=== PATIENT | female | born 1930 | race Caucasian/White ===

== ENCOUNTER 2019-12-04 18:06 | Emergency (ER) | payer MEDICARE ==
[~2019-12-04] VITALS: Ht 152.4 cm; Wt 60.9 kg
[2019-12-04] MEDS ORDERED: ENAL20TA11 (18:28)
[2019-12-04] MEDS ORDERED: CARV6.25 (18:28)
[2019-12-04] MEDS ORDERED: DILT180C70 (18:28)
[2019-12-04] MEDS ORDERED: XARE20TA (18:28)
[2019-12-04] MEDS ORDERED: JARD1TAB (18:28)
[2019-12-04] MEDS ORDERED: PRAV40TA2 (18:28)
[2019-12-04] MEDS ORDERED: FURO20TA2 (18:28)
[2019-12-04] MEDS ORDERED: IPRATROPIUM 0.5MG/ALBUTEROL 2.5MG INH SOL UD 3ML (DUONEB) NEB ONE (20:00)
[2019-12-04 20:10] LABS: BASO % 0.4 % (0.0-1.0); EOS # 0.2 10^3/uL (0.0-0.5); EOS % 1.5 % (0.0-3.0); HEMATOCRIT 28.8 % (36.0-47.0); LYMPH # 0.9 10^3/uL (1.5-5.0); LYMPH % 8.5 % (24.0-44.0); MEAN CORPUSCULAR HEMOGLOBIN 26.7 pg (27.0-33.0); MEAN CORPUSCULAR HGB CONC 27.8 g/dl (32.0-36.5); MONO # 0.7 10^3/uL (0.0-0.8); MONO % 6.8 % (0.0-5.0); NEUTROPHILS # 8.5 10^3/uL (1.5-8.5); NEUTROPHILS % 82.2 % (36.0-66.0); PLATELET COUNT, AUTOMATED 365 10^3/uL (150-450); WHITE BLOOD COUNT 10.3 10^3/uL (4.0-10.0)
[2019-12-04 20:11] LABS: VENOUS BASE EXCESS 8.4 (-2.0-2.0); VENOUS HCO3 37.2 MEQ/L (23.0-27.0); VENOUS O2 SATURATION 54.7 % (60.0-80.0); VENOUS PARTIAL PRESSURE CO2 85.5 mmHg (38.0-50.0); VENOUS PARTIAL PRESSURE O2 35.4 mmHg (30.0-50.0); VENOUS PH 7.257 UNITS (7.330-7.430); VENOUS STANDARD HCO3 31.5 MEQ/L; VENOUS TOTAL CO2 39.9 MEQ/L (24.0-28.0)
[2019-12-04 20:35] LABS: ALBUMIN 3.4 GM/DL (3.2-5.2); ALT/SGPT 19 U/L (12-78); BILIRUBIN,DIRECT 0.2 MG/DL (0.0-0.2); BILIRUBIN,TOTAL 0.5 MG/DL (0.2-1.0); BLOOD UREA NITROGEN 26 MG/DL (7-18); CARBON DIOXIDE LEVEL 35 MEQ/L (21-32); CHLORIDE LEVEL 103 MEQ/L (98-107); CK-MB VALUE MASS 1.8 NG/ML (<3.6); CPK CREATINE PHOSPHOKINASE 29 U/L (26-192); CREATININE FOR GFR 0.88 MG/DL (0.55-1.30); GLOMERULAR FILTRATION RATE > 60.0 (>32); GLUCOSE, FASTING 276 MG/DL (70-100); MB/CK RELATIVE INDEX 6.21 (< OR =4); NT-PRO BNP 1310 PG/ML (<450); POTASSIUM SERUM 3.5 MEQ/L (3.5-5.1); SODIUM LEVEL 143 MEQ/L (136-145); TOTAL PROTEIN 6.5 GM/DL (6.4-8.2); TROPONIN I < 0.02 NG/ML (< 0.10)
--- NOTE | 2019-12-04 20:56 | REPVR ---
PROCEDURE INFORMATION: Exam: XR Chest, 1 View Exam date and time: 12/04/2019 8:43 PM Age: 89 years old Clinical indication: Other: Dyspnea/cough TECHNIQUE: Imaging protocol: XR of the chest Views: 1 view. COMPARISON: No relevant prior studies available. FINDINGS: Lungs: Increased interstitial markings. No segmental or lobar infiltrates. Pleural space: Blunting of the right costophrenic angle likely chronic. Heart/Mediastinum: Cardiomegaly. Bones/joints: Unremarkable. Soft tissues: Multiple surgical clips demonstrated projecting over the left hemithorax and left axilla. IMPRESSION: No acute findings. Electronically signed by: Cosme Norman On 12/04/2019 20:55:39 PM
[2019-12-04 21:55] LABS: ABG BASE EXCESS 5.9 (-2.0-2.0); ABG HCO3 31.6 MEQ/L (22.0-26.0); ABG O2 SATURATION 93.7 % (95.0-99.0); ABG PARTIAL PRESSURE CO2 53.1 mmHg (35.0-45.0); ABG PARTIAL PRESSURE O2 79.8 mmHg (75.0-100.0); ABG STANDARD HCO3 29.7 MEQ/L (22.0-26.0); ABG TOTAL CO2 33.2 MEQ/L (23.0-31.0); ABG pH (ARTERIAL) 7.392 UNITS (7.350-7.450)
--- NOTE | 2019-12-04 22:59 | REPVR ---
PROCEDURE INFORMATION: Exam: US Duplex Lower Extremity Veins, Bilateral Exam date and time: 12/04/2019 10:47 PM Age: 89 years old Clinical indication: Edema, localized; Lower extremity, bilateral; Additional info: Swelling TECHNIQUE: Imaging protocol: Real-time duplex ultrasound of the extremities with 2-D cerna scale, color Doppler flow and spectral waveform analysis with image documentation. Complete exam focused on the bilateral lower extremity veins. COMPARISON: No relevant prior studies available. FINDINGS: Right deep veins: Unremarkable. The common femoral, femoral, proximal profunda femoral and popliteal veins are patent without thrombus. Normal Doppler waveforms. Normal compressibility and/or augmentation response. Right superficial veins: Saphenofemoral junction is patent without thrombus. Left deep veins: Unremarkable. The common femoral, femoral, proximal profunda femoral and popliteal veins are patent without thrombus. Normal Doppler waveforms. Normal compressibility and/or augmentation response. Left superficial veins: Saphenofemoral junction is patent without thrombus. Soft tissues: Severe edema demonstrated bilaterally in the lower legs. IMPRESSION: Severe edema demonstrated bilaterally in the lower legs. No DVT. Electronically signed by: Cosme Norman On 12/04/2019 22:58:47 PM
--- NOTE | 2019-12-04 23:00 | REPVR ---
PROCEDURE INFORMATION: Exam: US Duplex Left Upper Extremity Veins, Limited Exam date and time: 12/04/2019 10:47 PM Age: 89 years old Clinical indication: Swelling (edema) of limb; Upper extremity, left TECHNIQUE: Imaging protocol: Real-time Duplex ultrasound of the Left Upper Extremity with 2-D cerna scale, color Doppler flow and spectral waveform analysis with image documentation. Limited exam focused on the left upper extremity veins. COMPARISON: No relevant prior studies available. FINDINGS: Left deep veins: Unremarkable. Axillary and brachial veins are patent throughout without thrombus. Normal Doppler waveforms. Normal compressibility and/or augmentation response. Visualized internal jugular and subclavian veins are patent. Left superficial veins: Unremarkable. Visualized basilic vein is patent without thrombus. Cephalic vein not visualized. Soft tissues: Severe arm edema. IMPRESSION: Severe arm edema. No DVT. Electronically signed by: Cosme Norman On 12/04/2019 23:00:33 PM
[2019-12-04 23:30] VITALS: BP 125/58
--- NOTE | 2019-12-05 13:19 | ECGEPIP ---
[facility] - ED Test Date: 2019-12-04 Pat Name: OSKAR BABCOCK Department: Room: - Gender: Female Densitometrist: NATHEN : [id number] Requested By: CHICA Okeefe Order Number: [id number] Reading MD: Lanie Lucas Measurements Intervals Staples Rate: 99 P: IN: 0 QRS: 85 QRSD: 89 T: 221 QT: 302 QTc: 388 Interpretive Statements ATRIAL FIBRILLATION WITH ABERRANT CONDUCTION OR VENTRICULAR PREMATURE COMPLEXES SEPTAL MYOCARDIAL INFARCTION, PROBABLY OLD low voltage limb baseline artifact may affect interpretation No prior Electronically Signed on 12-05-2019 13:19:30 EDT by Lanie Lucas
== END 2019-12-04 23:35 | disposition home or self-care (01) ==
LOC: M ED 18:06
DX: I11.0 Hypertensive heart disease with heart failure (principal); R94.31 Abnormal electrocardiogram [ECG] [EKG]; R60.1 Generalized edema; I48.91 Unspecified atrial fibrillation; J44.9 Chronic obstructive pulmonary disease, unspecified; E78.5 Hyperlipidemia, unspecified; Z85.3 Personal history of malignant neoplasm of breast; Z90.12 Acquired absence of left breast and nipple; Z90.49 Acquired absence of other specified parts of digestive tract; Z79.899 Other long term (current) drug therapy

== ENCOUNTER 2019-12-09 21:11 | Inpatient (IN) | payer MEDICARE, MEDICAID ==
[~2019-12-09] VITALS: Ht 152.4 cm; Wt 57.8 kg
[~2019-12-09 21:11] MED LIST: CARV6.25; DILT180C70; ENAL20TA11; FURO20TA2; JARD1TAB; PRAV40TA2; XARE20TA
[2019-12-09] MEDS ORDERED: ACETAMINOPHEN TAB 650MG DOSE (2X325MG) PO PRN (23:45)
[2019-12-09] MEDS ORDERED: MAALOX 30 ML SUSP *UDC PO PRN (23:45)
[2019-12-09] MEDS ORDERED: MOM 30ML SUSPENSION UDC PO PRN (23:45)
[2019-12-09 23:46] VITALS: BP 146/80
[2019-12-10] MEDS ORDERED: AMLO1TAB25 PO (00:35)
[2019-12-10] MEDS ORDERED: PRAV40TA2 PO (00:35)
[2019-12-10] MEDS ORDERED: JARD1TAB PO (00:35)
[2019-12-10] MEDS ORDERED: FURO20TA2 PO (00:35)
[2019-12-10] MEDS ORDERED: DILT180C43 PO (00:35)
[2019-12-10] MEDS ORDERED: FERR1TAB8 PO (00:35)
[2019-12-10] MEDS ORDERED: XARE20TA PO (00:35)
[2019-12-10] MEDS ORDERED: ATEN100T PO (00:35)
[2019-12-10] MEDS ORDERED: ENAL20TA11 PO (00:35)
[2019-12-10] MEDS: PANTOPRAZOLE 40MG VIAL (C9113 PER 1) IV SCH ×3 (01:14→21:13)
[2019-12-10 01:29] LABS: HEMATOCRIT 34.4 % (36.0-47.0); HEMOGLOBIN 10.1 g/dl (12.0-15.5); MEAN CORPUSCULAR HEMOGLOBIN 26.3 pg (27.0-33.0); MEAN CORPUSCULAR HGB CONC 29.4 g/dl (32.0-36.5); MEAN CORPUSCULAR VOLUME 89.6 fl (80.0-96.0); PLATELET COUNT, AUTOMATED 318 10^3/uL (150-450); RED BLOOD COUNT 3.84 10^6/uL (4.00-5.40); WHITE BLOOD COUNT 12.7 10^3/uL (4.0-10.0)
[2019-12-10] MEDS: FUROSEMIDE 40MG/4ML VIAL (J1940) IV SCH ×4 (01:32→17:00)
[2019-12-10 01:40] LABS: INR 1.07; PROTHROMBIN TIME 14.1 SECONDS (12.5-14.3)
[2019-12-10 01:43] LABS: D-DIMER QUANT 545.04 ng/ml (<500)
[2019-12-10 02:10] LABS: ALBUMIN 3.4 GM/DL (3.2-5.2); BILIRUBIN,TOTAL 2.8 MG/DL (0.2-1.0); CALCIUM LEVEL 8.4 MG/DL (8.8-10.2); CREATININE FOR GFR 0.97 MG/DL (0.55-1.30); GLOMERULAR FILTRATION RATE 57.7 (>32); MAGNESIUM LEVEL 2.3 MG/DL (1.8-2.4); POTASSIUM SERUM 3.8 MEQ/L (3.5-5.1); THYROID STIMULATING HORMONE 6.13 uIU/ML (0.358-3.740); TOTAL PROTEIN 6.1 GM/DL (6.4-8.2); TROPONIN I 0.02 NG/ML (< 0.10)
--- NOTE | 2019-12-10 02:12 | REPVR ---
PROCEDURE INFORMATION: Exam: US Duplex Left Upper Extremity Veins, Limited Exam date and time: 12/10/2019 2:07 AM Age: 89 years old Clinical indication: Edema, localized; Upper extremity, left; Additional info: Left upper extremity swelling R/O dvt TECHNIQUE: Imaging protocol: Real-time Duplex ultrasound of the Left Upper Extremity with 2-D cerna scale, color Doppler flow and spectral waveform analysis with image documentation. Limited exam focused on the left upper extremity veins. COMPARISON: US DUPLEX EXT UPPER VEINS UNILATE LEFT 12/04/2019 10:25 PM FINDINGS: Left deep veins: Unremarkable. Axillary and brachial veins are patent throughout without thrombus. Normal Doppler waveforms. Normal compressibility and/or augmentation response. Visualized internal jugular and subclavian veins are patent. Left superficial veins: Unremarkable. Visualized cephalic and basilic veins are patent without thrombus. Soft tissues: Diffuse subcutaneous edema. IMPRESSION: 1. No evidence of deep vein thrombosis. 2. Diffuse subcutaneous edema. Electronically signed by: Darwin David On 12/10/2019 02:12:29 AM
[2019-12-10] MEDS ORDERED: DEXTROSE 50% 50 ML SYRINGE IV PRN (03:00)
[2019-12-10] MEDS ORDERED: GLUCAGON INJ 1MG VIAL SC PRN (03:00)
[2019-12-10] MEDS ORDERED: GLUCOSE 4GM CHEW TABLET PO PRN (03:00)
--- NOTE | 2019-12-10 03:02 | REPVR ---
PROCEDURE INFORMATION: Exam: XR Chest, 1 View Exam date and time: 12/10/2019 2:32 AM Age: 89 years old Clinical indication: Shortness of breath TECHNIQUE: Imaging protocol: XR of the chest Views: 1 view. COMPARISON: CR PORTABLE CHEST X-RAY 12/04/2019 8:36 PM FINDINGS: Lungs: No acute infiltrate. Pleural space: Unremarkable. No pleural effusion. No pneumothorax. Heart/Mediastinum: Unremarkable. No cardiomegaly. Vasculature: Moderate atherosclerotic calcification of the aortic arch. Bones/joints: Unremarkable. Soft tissues: Status post surgery of the left hemithorax. IMPRESSION: No acute infiltrate. Electronically signed by: Darwin David On 12/10/2019 03:01:20 AM
--- NOTE | 2019-12-10 03:06 | HPEPDOC ---
[facility] Medical History & Physical Date of Admission Dec 10, 2019 Date of Service: Dec 10, 2019 Attending Physician: MARIAMA BRUSH MD History and Physical CHIEF COMPLAINT: SOB, dyspnea, transfer from [facility] HISTORY OF PRESENT ILLNESS: Francesca Ramirez is an 89 YO F with history of dCHF, colon cancer s/p resection who presents with shortness of breath, dyspnea on exertion worsening over the past week. She denies any recent illness, no fevers/chills/nausea/vomiting/diarrhea and no cough. She does report having some congestion and intermittent runny nose. She has also noticed her legs getting m ore swollen. She attributes this to her increased thirst and noncompliance with fluid and salt restriction. In addition, her left arm has become increasingly more swollen compared to the right. She does have a history of left breast mastectomy and lymph node resection. Otherwise, she states that she has been taking all of her medication as prescribed. At [facility], where she first presented, she was found to have Hgb 7.6. She does endorse black tarry stools recently but no hemetemesis or hemoptysis. She was given 2U pRBCs. At this point in time, she reports her shortness of breath is the same and has not improved. PAST MEDICAL HISTORY: 1. History of diastolic congestive heart failure (last Echo unknown) 2. HLD 3. HTN 4. History of colon cancer s/p resection 5. History of left breast cancer 6. GERD 7. DM2 8. Osteoarthritis 9. COPD? 10. Atrial Fibrillation on Xarelto PAST SURGICAL HISTORY: 1. Colon resection 2. Cholecystectomy 3. Mastectomy (left) 4. Skin cancer removal SOCIAL HISTORY: Former smoker, quit >10 years ago Drinks one glass of wine each night FAMILY HISTORY: noncontributory ALLERGIES: Please see below. REVIEW OF SYSTEMS: CONSTITUTIONAL: No fevers/chills/night sweats, no weight loss HEENT: No change in vision or hearing loss noted CARDIOVASCULAR: no chest pain, no palpitations RESPIRATORY: reports shortness of breath, dyspnea on exertion, no coughing GASTROINTESTINAL: denies abdominal pain, no nausea/vomiting, denies diarrhea, reports black tarry stools GENITOURINARY: no dysuria symptoms SKIN: no rashes or new ulcers MUSCULOSKELETAL: no muscle pain or tenderness NEUROLOGICAL: no loss of sensation or weakness or loss of strength PSYCHIATRIC: no mood changes, no depression ENDOCRINE: no hot/cold intolerance, does report increased thirst HEMATOLOGIC/LYMPHATIC: no easy bruising, no lumps/bumps noted HOME MEDICATIONS: Please see below. VITAL SIGNS: see below GENERAL: alert and oriented, in no apparent distress, sitting up in bed, pleasant and conversant in full sentences. HEENT: PERRL, EOMI, Oral mucous membranes are moist without lesions. Norm ocephalic, atraumatic NECK: No adenopathy is appreciated. No thyromegaly CHEST/LUNGS: Diffuse wheezing bilaterally with some crackles noted at the bases, symmetric chest rise, HEENT. Sentences HEART: Irregularly irregular rhythm. 2/6 systolic ejection murmur at the right upper sternal border. Distal pulses are 2+. No carotid bruits appreciated. ABDOMEN: Soft, nontender, and nondistended. Bowel sounds are positive. No organomegaly is appreciated. No masses are appreciated. There are no peritoneal signs. There is no [place] sign. EXTREMITIES: There is 3+ pitting edema up to the hips bilaterally. Left upper extremity is edematous compared to right upper extremity, 2+ pitting edema up to left shoulder SKIN: There is evidence of chronic edema in her lower extremities PSYCHIATRIC: AAO x 3, normal mood/affect NEUROLOGIC: The patient has 5/5 strength to the upper and lower extremities bilaterally. Sensation is intact throughout. Deep tendon reflexes are 2+ in all four extremities. There are no deficits to the cranial nerves. LABORATORY DATA: See below. IMAGING: DOPPLER US LUE: FINDINGS: Left deep veins: Unremarkable. Axillary and brachial veins are patent throughout without thrombus. Normal Doppler waveforms. Normal compressibility and/or augmentation response. Visualized internal jugular and subclavian veins are patent. Left superficial veins: Unremarkable. Visualized cephalic and basilic veins are patent without thrombus. Soft tissues: Diffuse subcutaneous edema. IMPRESSION: 1. No evidence of deep vein thrombosis. 2. Diffuse subcutaneous edema. CXR FINDINGS: Lungs: No acute infiltrate. Pleural space: Unremarkable. No pleural effusion. No pneumothorax. Heart/Mediastinum: Unremarkable. No cardiomegaly. Vasculature: Moderate atherosclerotic calcification of the aortic arch. Bones/joints: Unremarkable. Soft tissues: Status post surgery of the left hemithorax. IMPRESSION: No acute infiltrate. MICROBIOLOGY: Please see below. ASSESSMENT: This is an 89 YO F with history of dCHF, AF, colon cancer s/p resection who presents with worsening shortness of breath, dyspnea over the past 2 weeks found to be anemic with leukocytosis and hyperglycemia concerning for acute GI bleed vs CHF exacerbation. . PLAN: 1. Shortness of breath: ddx includes symptomatic anemia vs more likely CHF exacerbation vs acute respiratory infection -RVP at [facility] negative for infection -CXR ordered not concerning for any infiltrate or fluid overload -BNP pending -Mild leukocytosis at 12.7. No fever, cough, sputum production. Likely from steroids given at [facility] -Will give 40mg IV Lasix Q4h -Fluid restriction 1.5L/day -Troponins negative at [facility], will trend q6H 2. Acute anemia, concern for UGI bleed: -Patient does report having black tarry stools recently, but she is on iron at home -Fecal occult ordered and pending -Will trend H/H Q6H -IV Protonix 40mg Q12H -Clear liquid diet for now -Consider GI consult in AM. Patient is hemodynamically stable at this point in time 3. LUE swelling: no concern for infection -Doppler U/S negative for DVT -Patient does have history of left breast and lymph node resection, could be component of lymphedema -Elevate arm, no IVs 4. HTN: -Continue Diltiazem, Atenolol, Norvasc 5. HLD: -Continue Pravastatin 6. Atrial fibrillation on Xarelto: -Will hold Xarelto for time being for concern for GI bleed 7. 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, will hold for time being DVT ppx: TEDs/SCDs Laboratory Data Labs 24H Laboratory Tests 2 12/10/19 01:16: Nucleated Red Blood Cells % (auto) 0.0 CBC/BMP Laboratory Tests 12/10/19 01:16 Home Medications Scheduled Amlodipine Besylate (Amlodipine Besylate) 10 Mg Tablet, 10 MG PO DAILY Atenolol (Atenolol) 100 Mg Tablet, 100 MG PO DAILY Diltiazem HCl (Diltiazem 24Hr ER) 180 Mg Cap.er.24h, 180 MG PO DAILY Empagliflozin (Jardiance) 10 Mg Tablet, 10 MG PO DAILY Enalapril Maleate (Enalapril Maleate) 20 Mg Tablet, 20 MG PO DAILY Ferrous Sulfate (Ferrous Sulfate) 325 Mg Tablet, 325 MG PO DAILY Furosemide (Furosemide) 20 Mg Tablet, 20 MG PO BID Pravastatin Sodium (Pravastatin Sodium) 40 Mg Tablet, 40 MG PO 4XWK FRIDAY, FRIDAY, FRIDAY AND FRIDAY AT BEDTIME Rivaroxaban (Xarelto) 20 Mg Tablet, 20 MG PO QPM BEFORE DINNER Allergies Coded Allergies: No Known Drug Allergies (Verified Allergy, Unknown, 12/04/19) A-FIB/CHADSVASC A-FIB History Current/History of A-Fib/PAF?: Yes Current PO Anticoag Therapy: Yes GME ATTESTATION GME ATTESTATION My faculty preceptor for this patient encounter was physically present during the encounter and was fully available. All aspects of the patient interview, examination, medical decision making process, and medical care plan development were reviewed and approved by the faculty preceptor. The faculty preceptor is aware and concurs with the plan as stated in the body of this note and will attest to such by his/her cosignature. ATTENDING NOTE TIME OF SERVICE 1235AM I reviewed the note and agree with the findings as documented. Ms. Ramirez is an 89 yr old w a hx of multiple malignancies DM, and HTN who was transferred for evaluation of melena with acute anemia; she also has fluid overload. She received PRBCs at [facility]. Plan: f/u repeat Hg and stool occult if positive consult / f/u Echo rest per 's H&P SHANTA GONZALEZ MD Dec 10, 2019 01:47 MARIAMA BRUSH MD Dec 10, 2019 06:25
[2019-12-10 03:35] LABS: HEMOGLOBIN A1c 7.1 %
[2019-12-10 06:00] VITALS: BP 164/92
[2019-12-10 07:00] VITALS: BP_SYST 136; BP_SYST 138; BP_SYST 141; BP_DIAS 67; BP_DIAS 68; BP_DIAS 80
[2019-12-10 08:02] LABS: HEMATOCRIT 37.2 % (36.0-47.0); HEMOGLOBIN 10.8 g/dl (12.0-15.5); MEAN CORPUSCULAR VOLUME 89.4 fl (80.0-96.0); PLATELET COUNT, AUTOMATED 308 10^3/uL (150-450); RED BLOOD COUNT 4.16 10^6/uL (4.00-5.40); WHITE BLOOD COUNT 12.4 10^3/uL (4.0-10.0)
[2019-12-10 08:28] LABS: CREATININE FOR GFR 0.99 MG/DL (0.55-1.30); GLOMERULAR FILTRATION RATE 56.4 (>32); PERCENT SATURATION 41.3 % (13.2-45.0); POTASSIUM SERUM 3.3 MEQ/L (3.5-5.1)
[2019-12-10] MEDS: HumaLOG INSULIN (NovoLOG) PER UNIT SC SCH ×4 (09:32→20:53)
[2019-12-10] MEDS: atenoloL 50 MG TAB PO SCH (09:35)
[2019-12-10] MEDS: amLODIPine 10 MG TAB PO SCH (09:36)
[2019-12-10] MEDS: ENALAPRIL MALEATE 10 MG TAB PO SCH (09:36)
[2019-12-10] MEDS: diltiaZEM **CD** 180 MG CAP PO SCH (09:36)
[2019-12-10 10:09] LABS: HEMOGLOBIN A1c 7.1 %
--- NOTE | 2019-12-10 11:36 | IPNPDOC ---
Text Note Date of Service The patient was seen on 12/10/19. NOTE HPI: Ms. Ma is an 89yo F with PMH of CHF and colon cancer who was transferred from [facility] to the ED complaining of SOB, dyspnea, and possible GI bleed. SUBJECTIVE: No acute events overnight. However, she did state she continues to feel short of breath when resting and that it gets worse when she exerts herself. She denied any chest pain or pressure, but mentioned that at times her heart feels like "it is fluttering in her chest" and said that it felt that way right now. She admitted to tingles in both of her legs that is constant and occasional tingles in her left arm that go down to her fingers. She stated that she did not eat anything yesterday or this morning and denied any nausea or vomiting. OBJECTIVE: VITAL SIGNS: please see below GENERAL: Pt appeared lying on bed and in no acute distress. HEENT: NC, AT, no scleral icterus, no pharyngeal erythema. NECK: no JVD or lymphadenopathy appreciated. CV: 2/6 systolic ejection murmur at right sternal border with an irregularly irregular rhythm. RESPIRATORY: expiratory wheezes heard in left middle and lower lobes, no rales, rhonchi, or wheezes elsewhere. ABDOMEN: soft, nontender, nondistended, bowel sounds active in all 4 quadrants. EXTREMITIES: +2 pitting edema in calves BL, Left upper extremity is edematous compared to the right, NEURO: 5/5 strength and sensation intact in all 4 extremities. PSYCH: AAOx3, normal mood and affect. LABORATORY DATA: please see below IMAGING: Vascular US: Impression 1. No evidence of deep vein thrombosis. 2. Diffuse subcutaneous edema. CXR: Impression 1. No acute infiltrate MICROBIOLOGY: please see below ASSESSMENT/PLAN: #SOB 2/2 CHF -RVP at [facility] negative for infection -CXR ordered with no concern for fluid overload or infiltrate -BNP 1670 this morning (12/10/2019) -Continue Lasix 40mg IV Q4h -Continue fluid restriction 1.5L/day -Troponins negative at [facility] and negative x2 since admission #Acute anemia -After 2 units of PRBCs, Hgb has improved to 10.8 -Nurse does not report any tarry stools -Fecal occult still pending -IV Protonix 40mg Q12h -Continue to trend H/H every 6h -Continue clear liquid diet -GI was consulted, input appreciated. #LUE swelling -Doppler U/S negative for DVT -Pt does have history of left breast and lymph node resection -Elevate arms, no IVs #HTN -Continue Diltiazem, Atenolol, and Norvasc #HLD -Continue Pravastatin #A-fib -Continue to hold Xarelto until GI bleed r/o #DM2 -On Jiardiance at home -SSI with hypoglycemic protocol #NAT -On Ferrous sulfate at home, continue to hold DVT prophylaxis: TEDS and sequentials VS,Fishbone, I+O VS, Fishbone, I+O Laboratory Tests 12/10/19 01:16 12/10/19 07:15 Vital Signs Date Time Temp Pulse Resp B/P (MAP) Pulse Ox O2 Delivery O2 Flow Rate FiO2 12/10/19 09:36 137/81 12/10/19 09:36 101 12/10/19 06:00 97.9 18 100 Nasal Cannula 3.0 I&O- Last 24 Hours up to 6 AM 12/10/19 06:00 Intake Total 200 ml Output Total 1575 ml Balance -1375 ml GME ATTESTATION GME ATTESTATION My faculty preceptor for this patient encounter was physically present during the encounter and was fully available. All aspects of the patient interview, examination, medical decision making process, and medical care plan development were reviewed and approved by the faculty preceptor. The faculty preceptor is aware and concurs with the plan as stated in the body of this note and will attest to such by his/her cosignature. ATTENDING NOTE I, Billy Dao, have independently examined this patient and performed my own physical exam, as well as reviewed the documentation and edited where necessary. I have discussed in detail with the resident / student the findings and plan of treatment as documented by the resident / student and edited their note. I agree with their findings and treatment plan and have edited their documentation. I will continue to follow the patient during this hospital stay. Case discussed with gastroenterology - At this point patient will continue with diuresis for fluid overload - Plan will be to continue trend hemoglobin and transfuse as needed PERICO VERDUGO OMS-3 Dec 10, 2019 11:36 BILLY DAO MD Dec 10, 2019 18:48
[2019-12-10 14:00] VITALS: BP 99/51
[2019-12-10] MEDS: PRAVASTATIN 20 MG TAB PO SCH (18:12)
[2019-12-10 22:00] VITALS: BP 123/65
[2019-12-11 06:00] VITALS: BP 136/75
[2019-12-11 07:18] LABS: HEMATOCRIT 35.8 % (36.0-47.0); HEMOGLOBIN 10.1 g/dl (12.0-15.5); MEAN CORPUSCULAR HEMOGLOBIN 25.7 pg (27.0-33.0); MEAN CORPUSCULAR HGB CONC 28.2 g/dl (32.0-36.5); MEAN CORPUSCULAR VOLUME 91.1 fl (80.0-96.0); PLATELET COUNT, AUTOMATED 305 10^3/uL (150-450); RED BLOOD COUNT 3.93 10^6/uL (4.00-5.40); WHITE BLOOD COUNT 12.2 10^3/uL (4.0-10.0)
--- NOTE | 2019-12-11 07:45 | IPNPDOC ---
Subjective Date Seen The patient was seen on 12/11/19. Subjective Chief Complaint/HPI Pt was seen this am at bedside. No acute complaints overnight by patient. Denies CP, SOB, abdominal pain, fever, n/v/d. Patient is satting at 98% on RA and a parameter was put on O2 to titrate to 88-92%. ROS: All 12 points reviewed. See HPI PHYSICAL EXAM: VITAL SIGNS: please see below GENERAL: Pt appeared lying on bed and in no acute distress. HEENT: NC, AT, no scleral icterus, no pharyngeal erythema. NECK: no JVD or lymphadenopathy appreciated. CV: 2/6 systolic ejection murmur at right sternal border with an irregularly irregular rhythm. RESPIRATORY: expiratory wheezes heard throughout ABDOMEN: soft, nontender, nondistended, bowel sounds active in all 4 quadrants. EXTREMITIES: +2 pitting edema in calves BL, Left upper extremity is edematous compared to the right, NEURO: 4/5 strength throughout and sensation intact in all 4 extremities. PSYCH: AAOx3, normal mood and affect. Assessment /Plan Assessment This is an 89 YO F with history of dCHF, AF, colon cancer s/p resection who presents with worsening shortness of breath, dyspnea over the past 2 weeks found to be anemic with leukocytosis and hyperglycemia concerning for acute GI bleed vs CHF exacerbation Plan/VTE VTE Prophylaxis Ordered?: Yes Plan #SOB 2/2 CHF exacerbation - Physical so reveals gross fluid overload -Continue Lasix 20mg IV BID - dose reduced given hypotension; clinically patient remains asymptomatic -Continue fluid restriction 1.5L/day -Troponins negative at [facility] and negative x2 since admission #Acute anemia - After 2 units of PRBCs at [facility], Hgb has improved and remained stable - H/H stable this am 10.1/35.8 - Continue IV Protonix 40mg Q12h - Continue to trend H/H every 6h - Continue clear liquid diet - GI was consulted- possibly endoscopy if bleeding persists #LUE swelling -Doppler U/S negative for DVT -Pt does have history of left breast and lymph node resection -Elevate arms, no IVs #HTN - Bp this am 136/75 - Continue Diltiazem, Atenolol, and Norvasc #HLD -Continue Pravastatin #A-fib -Continue to hold Xarelto until GI bleed r/o #DM2 -On Jiardiance at home -SSI with hypoglycemic protocol #NAT -On Ferrous sulfate at home, continue to hold DVT prophylaxis: TEDS and sequentials Dispo: Continue to monitor CBC closely and endoscopy per GI on friday. VS, I&O, 24H, Fishbone Vital Signs/I&O Vital Signs Date Time Temp Pulse Resp B/P (MAP) Pulse Ox O2 Delivery O2 Flow Rate FiO2 12/11/19 06:00 98.0 83 18 136/75 (95) 100 Nasal Cannula 4.0 I&O- Last 24 Hours up to 6 AM 12/11/19 06:00 Intake Total 2170 ml Output Total 1750 ml Balance 420 ml Laboratory Data 24H LABS Laboratory Tests 2 12/10/19 11:51: Bedside Glucose (Misc Panel) 157H 12/10/19 11:59: Troponin I < 0.02 12/10/19 16:23: Bedside Glucose (Misc Panel) 98 12/10/19 20:37: Bedside Glucose (Misc Panel) 122H 12/11/19 06:00: Nucleated Red Blood Cells % (auto) 0.0 CBC/BMP Laboratory Tests 12/10/19 11:59 12/10/19 17:48 12/10/19 23:50 12/11/19 06:00 Microbiology Microbiology 12/10/19 Blood Culture, Received Pending 12/10/19 Blood Culture, Received Pending GME ATTESTATION GME ATTESTATION My faculty preceptor for this patient encounter was physically present during the encounter and was fully available. All aspects of the patient interview, examination, medical decision making process, and medical care plan development were reviewed and approved by the faculty preceptor. The faculty preceptor is aware and concurs with the plan as stated in the body of this note and will attest to such by his/her cosignature. ATTENDING NOTE I, Billy Dao, have independently examined this patient and performed my own physical exam, as well as reviewed the documentation and edited where necessary. I have discussed in detail with the resident / student the findings and plan of treatment as documented by the resident / student and edited their note. I agree with their findings and treatment plan and have edited their documentation. I will continue to follow the patient during this hospital stay. Jessica Griffith DO Dec 11, 2019 07:45 BILLY DAO MD Dec 11, 2019 16:33
[2019-12-11 07:46] LABS: BLOOD UREA NITROGEN 21 MG/DL (7-18); CARBON DIOXIDE LEVEL 39 MEQ/L (21-32); CHLORIDE LEVEL 98 MEQ/L (98-107); CREATININE FOR GFR 0.93 MG/DL (0.55-1.30); GLOMERULAR FILTRATION RATE > 60.0 (>32); GLUCOSE, FASTING 144 MG/DL (70-100); MAGNESIUM LEVEL 2.4 MG/DL (1.8-2.4); POTASSIUM SERUM 3.3 MEQ/L (3.5-5.1); SODIUM LEVEL 144 MEQ/L (136-145)
[2019-12-11] MEDS ORDERED: KCL 10MEQ/100ML SWI (KRUN) 10 MEQ in IV 1 EA IV SCH (09:15)
[2019-12-11] MEDS ORDERED: POTASSIUM CHLORIDE 10 MEQ SR TABLET PO ONE ×2 (09:15→17:00)
[2019-12-11] MEDS: PANTOPRAZOLE 40MG VIAL (C9113 PER 1) IV SCH ×2 (09:56→21:38)
[2019-12-11] MEDS: HumaLOG INSULIN (NovoLOG) PER UNIT SC SCH ×4 (09:56→21:00)
[2019-12-11] MEDS: diltiaZEM **CD** 180 MG CAP PO SCH (09:57)
[2019-12-11] MEDS: FUROSEMIDE 40MG/4ML VIAL (J1940) IV SCH ×2 (09:57→17:00)
[2019-12-11] MEDS: amLODIPine 10 MG TAB PO SCH (09:58)
[2019-12-11] MEDS: ENALAPRIL MALEATE 10 MG TAB PO SCH (09:59)
[2019-12-11] MEDS: atenoloL 50 MG TAB PO SCH (09:59)
[2019-12-11] MEDS ORDERED: IPRATROPIUM 0.5MG/ALBUTEROL 2.5MG INH SOL UD 3ML (DUONEB) NEB PRN (11:30)
[2019-12-11 12:00] VITALS: O2SAT 90
[2019-12-11 13:50] VITALS: BP 78/50
[2019-12-11] MEDS ORDERED: SODIUM CHLORIDE 0.9% 1000ML IV ONE ×2 (14:15→18:00)
[2019-12-11 14:26] LABS: BASO % 0.3 % (0.0-1.0); EOS # 0.1 10^3/uL (0.0-0.5); EOS % 0.5 % (0.0-3.0); HEMOGLOBIN 9.5 g/dl (12.0-15.5); LYMPH # 0.5 10^3/uL (1.5-5.0); LYMPH % 4.8 % (24.0-44.0); MEAN CORPUSCULAR HEMOGLOBIN 25.5 pg (27.0-33.0); MEAN CORPUSCULAR HGB CONC 27.9 g/dl (32.0-36.5); MEAN CORPUSCULAR VOLUME 91.4 fl (80.0-96.0); MONO # 0.7 10^3/uL (0.0-0.8); MONO % 6.5 % (0.0-5.0); NEUTROPHILS # 9.6 10^3/uL (1.5-8.5); NEUTROPHILS % 87.4 % (36.0-66.0); PLATELET COUNT, AUTOMATED 309 10^3/uL (150-450); RED BLOOD COUNT 3.72 10^6/uL (4.00-5.40)
[2019-12-11 15:30] VITALS: BP 94/58
[2019-12-11 17:30] VITALS: BP 82/56
[2019-12-11 18:30] LABS: HEMATOCRIT 34.2 % (36.0-47.0); HEMOGLOBIN 9.8 g/dl (12.0-15.5)
[2019-12-11 22:00] VITALS: BP 96/57
[2019-12-12 00:14] LABS: HEMATOCRIT 33.2 % (36.0-47.0); HEMOGLOBIN 9.5 g/dl (12.0-15.5)
[2019-12-12 06:00] VITALS: BP 98/57
[2019-12-12 06:41] LABS: HEMOGLOBIN 9.4 g/dl (12.0-15.5); MEAN CORPUSCULAR HEMOGLOBIN 26.1 pg (27.0-33.0); MEAN CORPUSCULAR HGB CONC 28.5 g/dl (32.0-36.5); MEAN CORPUSCULAR VOLUME 91.7 fl (80.0-96.0); PLATELET COUNT, AUTOMATED 301 10^3/uL (150-450); WHITE BLOOD COUNT 9.5 10^3/uL (4.0-10.0)
[2019-12-12 07:09] LABS: CALCIUM LEVEL 8.7 MG/DL (8.8-10.2); CREATININE FOR GFR 0.98 MG/DL (0.55-1.30); MAGNESIUM LEVEL 2.2 MG/DL (1.8-2.4); POTASSIUM SERUM 3.7 MEQ/L (3.5-5.1)
[2019-12-12] MEDS: HumaLOG INSULIN (NovoLOG) PER UNIT SC SCH ×4 (08:27→20:44)
[2019-12-12] MEDS: PANTOPRAZOLE 40MG VIAL (C9113 PER 1) IV SCH (08:27)
[2019-12-12] MEDS: amLODIPine 10 MG TAB PO SCH (08:29)
[2019-12-12] MEDS: diltiaZEM **CD** 180 MG CAP PO SCH (08:29)
[2019-12-12] MEDS: atenoloL 50 MG TAB PO SCH (08:29)
[2019-12-12] MEDS: ENALAPRIL MALEATE 10 MG TAB PO SCH (08:30)
--- NOTE | 2019-12-12 09:01 | IPNPDOC ---
Text Note Date of Service The patient was seen on 12/12/19. NOTE Subjective: Patient is an 89-year-old female with a PMHx Chronic Diastolic CHF, A. fib (on Xarelto), HTN, DLP, NIDDM2, COPD?, Osteoarthritis, Hx of L Breast CA (s/p Mastectomy), Hx of Colon CA (s/p Resection), GERD who is transferred from [facility] because of suspected GI bleed. Patient was found to have a hemoglobin of 7 and was transfused 2 units while at [facility] upon arrival to [facility], she was found to have fluid overload and started on diuresis. Gastroenterology has been called on consultation. Patient was seen and examined at the bedside. Currently, patient denies any chest pain, shortness of breath, palpitations, abdominal pain, nausea, vomiting and reports some constipation. Objective: Vitals (See below) General: Lying in bed, appears comfortable, AAOx3 HEENT: NC, AT CVS: +S1S2 Lungs: Fair air entry b/l, auscultation reveals faint wheezing bilaterally, no rhonchi, mild crackles noted Abdomen: Soft, ND, NT Extremities: 1+ pitting edema, - Calf tenderness Assessment and plan: Acute on Chronic Diastolic CHF - Upon arrival, patient was found to be grossly fluid overloaded - Physical short improvement of lower extremity edema - Echo complete, report pending - Continue with strict ins and outs, daily weights and had about elevation, will add fluid restriction - c/w Diuresis Acute blood loss anemia - possibly 2/2 GI Bleed in the setting of NOAC agents (Xarelto) - Patient denies any chest pain, shortness of breath or palpitations - Hemoglobin has remained stable throughout this hospitalization - Patient has received 2 units of PRBC transfusion prior to departure of [facility] - c/w Protonix IV BID - c/w ferrous sulfate - Patient has been on anticoagulation as an outpatient;. this has been held - Gastroenterology has been called on consultation A. fib - Patient's rhythm appears to be rate controlled - c/w atenolol with holding parameters - Currently anticoagulation is on hold; Xarelto HTN - Patient has episodes of hypotension while on diuresis - She has remained asymptomatic throughout the hospital course - Will stop Amlodipine - c/w atenolol with holding parameters - Will adjust Cardizem to short acting with hold parameters - c/w Diuresis DLP - c/w Pravastatin NIDDM2 - c/w ISS COPD - Mild wheezing noted on expiration - Patient does not appear to be in any distress - c/w inhaled therapy as ordered Osteoarthritis Hx of L Breast CA - s/p Mastectomy Hx of Colon CA - s/p Resection GERD - c/w Protonix DVT prophylaxis - c/w TEDs/Sequentials (re: suspected GI bleed) VS,Fishbone, I+O VS, Fishbone, I+O Laboratory Tests 12/11/19 14:07 12/11/19 16:02 12/11/19 18:02 12/11/19 23:46 12/12/19 05:17 Vital Signs Date Time Temp Pulse Resp B/P (MAP) Pulse Ox O2 Delivery O2 Flow Rate FiO2 12/12/19 08:29 89 120/72 12/12/19 06:00 97.2 16 90 Nasal Cannula 4.0 I&O- Last 24 Hours up to 6 AM 12/12/19 06:00 Intake Total 360 ml Output Total 1100 ml Balance -740 ml BUTCH DAO MD Dec 12, 2019 09:01
[2019-12-12] MEDS: MIRALAX *UNIT DOSE* 17GM PACKET PO SCH ×2 (09:51→20:43)
[2019-12-12] MEDS: SENOKOT S TAB PO PRN (09:52)
[2019-12-12 14:00] VITALS: BP 103/62
[2019-12-12 22:00] VITALS: BP 97/51
[2019-12-13 05:35] LABS: HEMATOCRIT 34.2 % (36.0-47.0); HEMOGLOBIN 9.7 g/dl (12.0-15.5); MEAN CORPUSCULAR HEMOGLOBIN 25.9 pg (27.0-33.0); MEAN CORPUSCULAR HGB CONC 28.4 g/dl (32.0-36.5); MEAN CORPUSCULAR VOLUME 91.4 fl (80.0-96.0); PLATELET COUNT, AUTOMATED 298 10^3/uL (150-450); RED BLOOD COUNT 3.74 10^6/uL (4.00-5.40)
[2019-12-13 05:57] LABS: BLOOD UREA NITROGEN 24 MG/DL (7-18); CALCIUM LEVEL 8.9 MG/DL (8.8-10.2); CARBON DIOXIDE LEVEL 37 MEQ/L (21-32); CHLORIDE LEVEL 100 MEQ/L (98-107); CREATININE FOR GFR 0.87 MG/DL (0.55-1.30); GLOMERULAR FILTRATION RATE > 60.0 (>32); GLUCOSE, FASTING 125 MG/DL (70-100); MAGNESIUM LEVEL 2.2 MG/DL (1.8-2.4); POTASSIUM SERUM 3.7 MEQ/L (3.5-5.1); SODIUM LEVEL 140 MEQ/L (136-145)
[2019-12-13 06:00] VITALS: BP 123/66
--- NOTE | 2019-12-13 07:15 | ECHO ---
DATE OF PROCEDURE: 12/10/2019 Age: 89 Gender: Female Height: 60 inches Weight: 136 pounds Body surface area: 1.58 m2 PATIENT LOCATION: Inpatient, [address] [place] [address], Room 4236. REFERRING PHYSICIAN: Silva Ruiz MD INDICATION: Dyspnea. MEASUREMENTS: 2D Measurements: RV 4.7 cm LV 3.7 cm Septum 1.0 cm Posterior wall 1.0 cm Aortic Root 3.5 cm LA 4.1 cm LVEF 60% Doppler Measurements: AV 2.39 m/s LVOT 0.41 m/s LVOT diameter 1.7 cm Mean AV systolic gradient 11 mmHg Dimensionless index 0.15 MV-E 79, A 27, E/A ratio 2.9 Early mitral deceleration time 130 m/s E prime medial 8, A prime medial 3, E prime lateral 11 Average E/E prime ratio 8.3/PCWP 12.2 mmHg PV 0.55 m/s Pulmonary artery acceleration time 85 m/s RVSP 66 mmHg IVC 3.1 cm COMMENTS: Normal sinus rhythm without intraventricular conduction disturbance. M-mode and two-dimensional echocardiography was performed with pulsed, continuous wave, color flow, and tissue Doppler studies. Normal left ventricular size and wall thickness with septal wall motion abnormality and flattening related to right ventricular pressure overload. Preserved global resting left ventricular (LV) systolic function. Mildly dilated left atrium with grade 2 left ventricular (LV) diastolic dysfunction with abbreviated early mitral deceleration time, but current estimated mean left atrial pressure upper limits of normal. Prominently dilated right heart chambers with right ventricular free wall hypokinesis and Doppler evidence of severe pulmonary hypertension. Prominently dilated inferior vena cava (IVC) with absent respiratory collapse in keeping with a significantly elevated central venous pressure/right heart failure. Normal aortic dimensions. Severe calcific aortic stenosis with trace insufficiency (low mean gradient is related to reduce forward stroke volume related to mitral insufficiency and severe pulmonary hypertension). Moderate degenerative changes of the mitral valvular apparatus without inflow tract obstruction and moderate insufficiency. Normal appearing tricuspid valve with severe tricuspid insufficiency. No apparent intracardiac mass or pericardial effusion. Although the patient does have severe aortic stenosis, her chief determinate of her life expediency is her severe pulmonary hypertension and right heart failure. Her prognosis is guarded measured in months rather than years. LOUD
[2019-12-13] MEDS: HumaLOG INSULIN (NovoLOG) PER UNIT SC SCH ×4 (07:30→21:25)
[2019-12-13] MEDS: atenoloL 50 MG TAB PO SCH (08:50)
[2019-12-13] MEDS: MIRALAX *UNIT DOSE* 17GM PACKET PO SCH ×2 (08:50→21:25)
[2019-12-13] MEDS: ENALAPRIL MALEATE 10 MG TAB PO SCH (08:51)
--- NOTE | 2019-12-13 11:21 | IPNPDOC ---
Text Note Date of Service The patient was seen on 12/13/19. NOTE Subjective: Patient is an 89-year-old female with a PMHx Chronic Diastolic CHF, A. fib (on Xarelto), HTN, DLP, NIDDM2, COPD?, Osteoarthritis, Hx of L Breast CA (s/p Mastectomy), Hx of Colon CA (s/p Resection), GERD who is transferred from [facility] because of suspected GI bleed. Patient was found to have a hemoglobin of 7 and was transfused 2 units while at [facility] upon arrival to [facility], she was found to have fluid overload and started on diuresis. Gastroenterology has been called on consultation. Patient was seen and examined at the bedside. Patient has had an uneventful evening denies any chest pain, shortness of breath or palpitations. Has been sitting up at that objective the bedside and in chair. Patient was working with physical therapy. Reports improvement of lower extremity edema. Denies any abdominal pain, nausea, vomiting or diarrhea. Objective: Vitals (See below) General: Sitting up in bed, does not appear to be in any acute distress, is awake and alert HEENT: NC, AT CVS: +S1S2 Lungs: Air entry is fair bilaterally without evidence of rhonchi, crackles or wheezing Abdomen: Soft, nondistended and nontender Extremities: Lower extremities reveal improvement of edema - however, still at 1+, - Calf tenderness Assessment and plan: Acute on Chronic Diastolic CHF - Upon arrival, patient was found to be grossly fluid overloaded - There does appear to be improvement of edema of lower extremities and left upper extremity - Echo 12/09: Preserved EF, Diastolic dysfunction (Grade 2), - c/w strict ins and outs, daily weights and head of bed elevation, fluid restriction 1500xx - c/w Diuresis Acute blood loss anemia - possibly 2/2 GI Bleed in the setting of NOAC agents (Xarelto) - Patient denies any chest pain, shortness of breath or palpitations - Hemoglobin has remained stable throughout this hospitalization - Patient has received 2 units of PRBC transfusion prior to departure of [facility] - c/w Protonix IV BID - c/w ferrous sulfate - Patient has been on anticoagulation (Xarelto) as an outpatient; this has been held - Gastroenterology on consultation; will consider outpatient endoscopy Chronic A. fib - Patient's rhythm appears to be rate controlled - c/w atenolol with holding parameters - Currently anticoagulation is on hold; Xarelto HTN - Patient has episodes of hypotension while on diuresis - She has remained asymptomatic throughout the hospital course - s/p Amlodipine - c/w atenolol with holding parameters - c/w Cardizem short acting with hold parameters; s/p Cardizem CD - c/w Diuresis DLP - c/w Pravastatin NIDDM2 - c/w ISS COPD - Mild wheezing noted on expiration - Patient does not appear to be in any distress - c/w inhaled therapy as ordered Osteoarthritis Hx of L Breast CA - s/p Mastectomy Hx of Colon CA - s/p Resection GERD - c/w Protonix DVT prophylaxis - c/w TEDs/Sequentials (re: suspected GI bleed) VS,Fishbone, I+O VS, Fishbone, I+O Laboratory Tests 12/13/19 04:49 Vital Signs Date Time Temp Pulse Resp B/P (MAP) Pulse Ox O2 Delivery O2 Flow Rate FiO2 12/13/19 08:51 112/56 12/13/19 08:50 72 12/13/19 06:00 97.4 17 99 Nasal Cannula 1.0 I&O- Last 24 Hours up to 6 AM 12/13/19 06:00 Intake Total 1520 ml Output Total 350 ml Balance 1170 ml BUTCH DAO MD Dec 13, 2019 11:21
[2019-12-13 14:00] VITALS: BP 122/61
[2019-12-13] MEDS: SENOKOT S TAB PO PRN (16:42)
[2019-12-13] MEDS: PRAVASTATIN 20 MG TAB PO SCH (16:55)
[2019-12-13 22:00] VITALS: BP 104/56
[2019-12-14 06:00] VITALS: BP_SYST 121; BP_DIAS 121; BP_DIAS 81
[2019-12-14 06:53] LABS: HEMATOCRIT 37.2 % (36.0-47.0); HEMOGLOBIN 10.4 g/dl (12.0-15.5); MEAN CORPUSCULAR HEMOGLOBIN 25.3 pg (27.0-33.0); MEAN CORPUSCULAR VOLUME 90.5 fl (80.0-96.0); PLATELET COUNT, AUTOMATED 299 10^3/uL (150-450); RED BLOOD COUNT 4.11 10^6/uL (4.00-5.40); WHITE BLOOD COUNT 11.1 10^3/uL (4.0-10.0)
[2019-12-14 07:26] LABS: BLOOD UREA NITROGEN 21 MG/DL (7-18); CALCIUM LEVEL 9.1 MG/DL (8.8-10.2); CARBON DIOXIDE LEVEL 37 MEQ/L (21-32); CHLORIDE LEVEL 100 MEQ/L (98-107); CREATININE FOR GFR 0.84 MG/DL (0.55-1.30); GLOMERULAR FILTRATION RATE > 60.0 (>32); GLUCOSE, FASTING 176 MG/DL (70-100); MAGNESIUM LEVEL 2.4 MG/DL (1.8-2.4); POTASSIUM SERUM 4.1 MEQ/L (3.5-5.1); SODIUM LEVEL 137 MEQ/L (136-145)
[2019-12-14] MEDS: MIRALAX *UNIT DOSE* 17GM PACKET PO SCH ×2 (08:33→21:12)
[2019-12-14] MEDS: atenoloL 50 MG TAB PO SCH (08:33)
[2019-12-14] MEDS: ENALAPRIL MALEATE 10 MG TAB PO SCH (08:33)
[2019-12-14] MEDS: HumaLOG INSULIN (NovoLOG) PER UNIT SC SCH ×4 (08:34→20:44)
--- NOTE | 2019-12-14 11:57 | IPNPDOC ---
Date Seen The patient was seen on 12/14/19. Progress Note Hospitalist Attending Physician 12/14/19 Progress note dictated. Dictation job#[id number] If urgent written documentation is needed, please 1) call [facility] [phone] for STAT burning plant operator, and 2)Medical Records [phone] to STAT scan into EMR. thank you. VS, I&O, 24H, Fishbone Vital Signs/I&O Vital Signs Date Time Temp Pulse Resp B/P (MAP) Pulse Ox O2 Delivery O2 Flow Rate FiO2 12/14/19 08:33 108/51 12/14/19 08:33 80 12/14/19 08:30 2.0 12/14/19 06:00 98.4 20 94 12/13/19 22:00 Nasal Cannula I&O- Last 24 Hours up to 6 AM 12/14/19 05:59 Intake Total 720 ml Output Total 250 ml Balance 470 ml Laboratory Data 24H LABS Laboratory Tests 2 12/13/19 11:54: Bedside Glucose (Misc Panel) 183H 12/13/19 16:32: Bedside Glucose (Misc Panel) 254H 12/13/19 20:23: Bedside Glucose (Misc Panel) 299H 12/14/19 06:46: Nucleated Red Blood Cells % (auto) 0.0, Anion Gap 0L, Glomerular Filtration Rate > 60.0, Calcium Level 9.1, Magnesium Level 2.4 CBC/BMP Laboratory Tests 12/14/19 06:46 Microbiology Microbiology 12/10/19 Blood Culture - Preliminary, Resulted No Growth after 72 hours. All specime... 12/10/19 Blood Culture - Preliminary, Resulted No Growth after 72 hours. All specime... RONNELL MORTENSEN MD Dec 14, 2019 11:52
[2019-12-14 14:00] VITALS: BP 102/53
[2019-12-14 22:00] VITALS: BP 116/64
[2019-12-15 06:00] VITALS: BP 113/63
[2019-12-15 06:01] LABS: HEMATOCRIT 35.3 % (36.0-47.0); HEMOGLOBIN 9.9 g/dl (12.0-15.5); MEAN CORPUSCULAR HEMOGLOBIN 25.7 pg (27.0-33.0); MEAN CORPUSCULAR VOLUME 91.7 fl (80.0-96.0); PLATELET COUNT, AUTOMATED 314 10^3/uL (150-450); RED BLOOD COUNT 3.85 10^6/uL (4.00-5.40); WHITE BLOOD COUNT 8.2 10^3/uL (4.0-10.0)
[2019-12-15 06:23] LABS: BLOOD UREA NITROGEN 17 MG/DL (7-18); CALCIUM LEVEL 8.6 MG/DL (8.8-10.2); CARBON DIOXIDE LEVEL 39 MEQ/L (21-32); CHLORIDE LEVEL 99 MEQ/L (98-107); CREATININE FOR GFR 0.71 MG/DL (0.55-1.30); GLOMERULAR FILTRATION RATE > 60.0 (>32); GLUCOSE, FASTING 124 MG/DL (70-100); MAGNESIUM LEVEL 2.3 MG/DL (1.8-2.4); SODIUM LEVEL 139 MEQ/L (136-145)
[2019-12-15] MEDS: HumaLOG INSULIN (NovoLOG) PER UNIT SC SCH ×4 (07:30→21:00)
[2019-12-15] MEDS: MIRALAX *UNIT DOSE* 17GM PACKET PO SCH ×2 (08:13→20:18)
[2019-12-15] MEDS: atenoloL 50 MG TAB PO SCH (09:00)
[2019-12-15] MEDS: ENALAPRIL MALEATE 10 MG TAB PO SCH (09:00)
[2019-12-15 09:30] VITALS: BP_SYST 114; BP_SYST 64; BP_DIAS 36; BP_DIAS 51
[2019-12-15] MEDS ORDERED: NS 500 ML IV ONE (10:30)
[2019-12-15 14:00] VITALS: BP 132/50
[2019-12-15] MEDS: PRAVASTATIN 20 MG TAB PO SCH (17:44)
[2019-12-15 22:00] VITALS: BP 113/67
[2019-12-16 06:00] VITALS: BP 119/63
[2019-12-16 06:06] LABS: HEMATOCRIT 33.2 % (36.0-47.0); HEMOGLOBIN 9.1 g/dl (12.0-15.5); MEAN CORPUSCULAR HEMOGLOBIN 25.2 pg (27.0-33.0); MEAN CORPUSCULAR HGB CONC 27.4 g/dl (32.0-36.5); PLATELET COUNT, AUTOMATED 317 10^3/uL (150-450); RED BLOOD COUNT 3.61 10^6/uL (4.00-5.40); WHITE BLOOD COUNT 8.3 10^3/uL (4.0-10.0)
[2019-12-16 06:20] LABS: BLOOD UREA NITROGEN 14 MG/DL (7-18); CALCIUM LEVEL 8.6 MG/DL (8.8-10.2); CARBON DIOXIDE LEVEL 38 MEQ/L (21-32); CHLORIDE LEVEL 100 MEQ/L (98-107); CREATININE FOR GFR 0.66 MG/DL (0.55-1.30); GLOMERULAR FILTRATION RATE > 60.0 (>32); GLUCOSE, FASTING 135 MG/DL (70-100); MAGNESIUM LEVEL 2.3 MG/DL (1.8-2.4); POTASSIUM SERUM 4.1 MEQ/L (3.5-5.1); SODIUM LEVEL 141 MEQ/L (136-145)
[2019-12-16] MEDS: HumaLOG INSULIN (NovoLOG) PER UNIT SC SCH ×4 (07:30→20:16)
[2019-12-16] MEDS: MIRALAX *UNIT DOSE* 17GM PACKET PO SCH ×2 (08:34→20:26)
[2019-12-16] MEDS: atenoloL 50 MG TAB PO SCH (08:41)
[2019-12-16] MEDS ORDERED: FUROSEMIDE 40MG/4ML VIAL (J1940) IV ONE (11:00)
[2019-12-16] MEDS ORDERED: propofoL 200 MG/20 ML VIAL As Ordered ONE (11:09)
[2019-12-16] MEDS ORDERED: LIDOCAINE 2% 100MG/5ML SDV (FOR ANES.) As Ordered ONE (11:09)
[2019-12-16 14:00] VITALS: BP 133/78
--- NOTE | 2019-12-16 16:12 | ROOR ---
Patient Name: Francesca Ramirez Procedure Date: 12/16/2019 3:43 PM Date of : 1930 Age: 89 Room: [facility] Gender: Female Note Status: Finalized Procedure: Upper GI endoscopy Indications: Acute post hemorrhagic anemia, Iron deficiency anemia secondary to chronic blood loss Providers: Altaf BEAN MD Referring MD: 2. Inpatient 2. Inpatient, Valeria Varma Requesting Provider: Medicines: Monitored Anesthesia Care Complications: No immediate complications. Procedure: Pre-Anesthesia Assessment: - The heart rate, respiratory rate, oxygen saturations, blood pressure, adequacy of pulmonary ventilation, and response to care were monitored throughout the procedure. The Endoscope was introduced through the mouth, and advanced to the second part of duodenum. The upper GI endoscopy was accomplished without difficulty. The patient tolerated the procedure well. Findings: The examined esophagus was normal. Multiple dispersed, small non-bleeding erosions were found in the gastric antrum. There were stigmata of recent bleeding. Biopsies were taken with a cold forceps for histology. Small Hiatal Hernia. The exam of the stomach was otherwise normal. The examined duodenum was normal. Impression: - Normal esophagus. - Recently bleeding erosive gastropathy/shallow erosions with small fleccs of heme type material. Biopsied. - Small Hiatal Hernia. - Normal examined duodenum. Recommendation: - Telephone endoscopist for pathology results in 2 weeks. - Use a proton pump inhibitor PO daily indefinitely. Altaf Bean MD Altaf BEAN MD 12/16/2019 4:11:45 PM Electronically signed by Altaf BEAN MD Number of Addenda: 0 Note Initiated On: 12/16/2019 3:43 PM Estimated Blood Loss: Estimated blood loss: none.
--- NOTE | 2019-12-16 17:55 | IPN ---
DATE: 12/14/2019 SUBJECTIVE: Patient is seen and examined at the bedside. Chart has been reviewed. Patient denies any chest pain, pressure or tightness. She has chronic shortness of breath, which is at baseline. She is trying to have a bowel movement, today has been constipated. Despite blood pressure 104 to 108, she denies any dizziness or lightheadedness. OBJECTIVE/PHYSICAL EXAMINATION: VITAL SIGNS: Temperature 98.4, pulse 85, respiratory rate 20, blood pressure 104 to 121 systolic; current blood pressure 108/51, 94% on 2 liters nasal cannula at baseline. GENERAL: Patient is awake, alert, and oriented. Answering questions appropriately. She does have mild conversational dyspnea of 6-7 words. She is pursing her lips. There is mild respiratory accessory use, which she says is chronic. No JVD or thyromegaly. No cervical lymphadenopathy. Dry mucous membranes. SKIN: Multiple ecchymotic areas on bilateral hands on the dorsum LUNGS: Air entry is equal. No wheezing or rales. No rhonchi. No adventitious breath sounds. HEART: S1, S2, irregularly irregular. No murmurs, rubs, or gallops. ABDOMEN: Soft, nontender, nondistended. Positive bowel sounds. EXTREMITIES: 1+ pitting edema bilaterally. LABORATORY DATA: White count 11, hemoglobin 10, hematocrit 37, platelet count 299,000. Sodium 137, potassium 4, chloride 100, bicarbonate 37, BUN 21, creatinine 0.84, glucose 176. Two sets of blood cultures are negative. INPUT: 720. OUTPUT: 250. Since midnight INPUT: 260. OUTPUT: 400. HOSPITAL MEDICATIONS: Cardizem, MiraLax, Senokot, DuoNeb, insulin sliding scale q.a.c. h.s., Pravachol, Atenolol, Vasotec, hyperglycemic protocol, Tylenol, Milk of Magnesia, Mylanta. ASSESSMENT AND PLAN: This is an 89-year-old female admitted on 12/10/2019 for acute on chronic congestive heart failure with grade 2 left ventricular diastolic dysfunction with preserved systolic function. Current issues are as follows: 1. Acute on chronic diastolic heart failure with preserved systolic function, acute blood loss anemia in the setting of Xarelto; status post 2 units of RBC transfusion at [facility] prior to [facility] admission. 2. Chronic atrial fibrillation. 3. Hypertension. 4. Dyslipidemia. 5. Insulin dependent diabetes. 6. COPD. 7. Osteoarthritis. 8. History of colon cancer with resection. 9. History of left breast cancer; status post mastectomy. 10. Reflux. PLAN: During this admission, patient's hemoglobin and hematocrit have remained stable with no recurrent GI bleeding. Her anticoagulant has been held and she has been doing well. Holding parameters have been placed on her Enalapril, Atenolol and Diltiazem. Will continue to monitor for any overt GI bleed. Await PT clearance prior to hospital discharge. Activity as tolerated. Resume back on all of her home medications. HUBER
[2019-12-16 22:00] VITALS: BP 136/67
[2019-12-17 06:00] VITALS: BP 156/76
[2019-12-17 06:38] LABS: HEMATOCRIT 35.3 % (36.0-47.0); HEMOGLOBIN 9.9 g/dl (12.0-15.5); MEAN CORPUSCULAR HEMOGLOBIN 25.7 pg (27.0-33.0); MEAN CORPUSCULAR VOLUME 91.7 fl (80.0-96.0); PLATELET COUNT, AUTOMATED 312 10^3/uL (150-450); RED BLOOD COUNT 3.85 10^6/uL (4.00-5.40); WHITE BLOOD COUNT 8.5 10^3/uL (4.0-10.0)
[2019-12-17 07:07] LABS: BLOOD UREA NITROGEN 14 MG/DL (7-18); CALCIUM LEVEL 8.7 MG/DL (8.8-10.2); CARBON DIOXIDE LEVEL 41 MEQ/L (21-32); CHLORIDE LEVEL 100 MEQ/L (98-107); CREATININE FOR GFR 0.68 MG/DL (0.55-1.30); GLOMERULAR FILTRATION RATE > 60.0 (>32); GLUCOSE, FASTING 130 MG/DL (70-100); MAGNESIUM LEVEL 2.3 MG/DL (1.8-2.4); POTASSIUM SERUM 3.6 MEQ/L (3.5-5.1); SODIUM LEVEL 143 MEQ/L (136-145)
[2019-12-17] MEDS: HumaLOG INSULIN (NovoLOG) PER UNIT SC SCH ×2 (07:30→12:30)
[2019-12-17] MEDS: MIRALAX *UNIT DOSE* 17GM PACKET PO SCH (08:04)
[2019-12-17 08:55] VITALS: BP 109/61
[2019-12-17 08:57] VITALS: BP 109/61
[2019-12-17] MEDS ORDERED: atenoloL 50 MG TAB PO SCH (09:00)
[2019-12-17] MEDS ORDERED: FUROSEMIDE 20 MG TAB PO SCH (09:00)
[2019-12-17 10:00] VITALS: BP 127/76
[2019-12-17] MEDS ORDERED: PROTPAK PO (10:38)
[2019-12-17] MEDS ORDERED: PANTOPRAZOLE 40MG TAB (PROTONIX) PO ONE (10:45)
--- NOTE | 2019-12-17 11:05 | IPN ---
DATE: 12/15/2019 SUBJECTIVE: Patient is seen and examined at the bedside. Chart has been reviewed. Patient remains orthostatic, slightly dizzy and lightheaded, rate controlled on her atrial fibrillation. No recurrent episodes of gastrointestinal (GI) bleed, awaiting endoscopy. Afebrile, no chills, no shortness of breath, chest pain, pressure, or tightness. PHYSICAL EXAMINATION: Vital signs: Temperature 97.6, pulse 92, respiratory rate 20, blood pressure 113/63, 92% on two liters nasal cannula. Generally: Awake, alert, oriented to person, answering questions appropriately. No respiratory distress, jugular venous distension (JVD), thyromegaly, or cervical lymphadenopathy. Lungs: Clear to auscultation. No wheezing, rales, or rhonchi. Heart: S1, S2, sinus rhythm. Abdomen: Soft, nontender, nondistended. Positive bowel sounds. Extremities: No cyanosis or clubbing. LABORATORY DATA: White count 8.3, hemoglobin 9.9, hematocrit 35, platelet count 314, sodium 139, potassium 4, chloride 99, bicarbonate 39, BUN 17, creatinine 0.71, glucose of 124. HOSPITAL MEDICATIONS: - Cardizem 60 every 8 hours - MiraLax one packet twice a day - Senokot - DuoNeb - Lispro insulin - Pravachol - atenolol - enalapril - hypoglycemic protocol - acetaminophen - milk of magnesium - Mylanta ASSESSMENT AND PLAN: This is an 89-year-old female admitted on 12/10/2019, transferred from [facility] where she presented with symptomatic anemia, shortness of breath, dyspnea on exertion for 1 week, found to have a hemoglobin of 7.6, transfused two units of blood, with her Xarelto held for chronic atrial fibrillation. Since hospital admission, patient has had no recurrent episodes of gastrointestinal (GI) bleeding with hemoglobin remaining at 9.9 to 10.4. IMPRESSION: 1. Acute gastrointestinal (GI) bleed, acute blood loss anemia. 2. Chronic atrial fibrillation. Xarelto held due to acute blood loss. 3. Diastolic heart failure, compensated. 4. Hyperlipidemia. 5. Hypertension. 6. History of colon cancer status post resection. 7. History of left breast cancer. 8. Reflux. 9. Type 2 diabetes. 10. Osteoarthritis. PLAN: Patient will be kept nothing by mouth after midnight. Dr. Bean has been consulted. She is to have an endoscopy in the morning. Continue to hold the patients Xarelto. She is currently rate controlled but orthostatic, therefore will give a liter of fluids for now. Monitor patients heart rate overnight. Continue with current management as she is currently rate controlled on atenolol, diltiazem. Hold off on patients enalapril due to orthostasis. She is medically stable to proceed with endoscopy in the morning. Compression stockings for deep venous thrombosis (DVT) prophylaxis for now. [facility]
--- NOTE | 2019-12-17 11:06 | IPN ---
DATE: 12/16/2019 SUBJECTIVE: Patient seen and examined at the bedside. Chart has been reviewed. Patient complains of slight shortness of breath this morning. Given intravenous (IV) Lasix. She did receive an IV bolus yesterday. Repeat chest x-ray is still pending. VITAL SIGNS: Temperature 97.6, pulse 89, respiratory rate 16, blood pressure 120/65, 99% on 2 liters nasal cannula. GENERAL: Patient is awake, alert, oriented, answering questions appropriately. Positive use of respiratory accessory muscles. Six to seven-word conversational dyspnea. Positive jugular venous distention (JVD). No thyromegaly or cervical lymphadenopathy. LUNGS: Diminished. Bilateral crackles and rales. HEART: S1, S2, irregularly irregular. ABDOMEN: Soft, nontender, nondistended. Positive bowel sounds. EXTREMITIES: No cyanosis, clubbing, or any pitting edema. LABORATORY DATA: White count 8.3, hemoglobin 9, hematocrit 33, platelet count 317. Sodium 141, potassium 4.1, chloride 100, bicarbonate 38, BUN 14, creatinine 0.66, glucose 135. Patient has been in positive balance from December 11 to December 15. ASSESSMENT AND PLAN: This is an 89-year-old female with history of grade 2 left ventricular diastolic dysfunction, severe pulmonary hypertension, severe calcific aortic stenosis with trace insufficiency, ejection fraction of 60%, PA pressure of 66 mm of mercury, chronic atrial fibrillation, on Xarelto, hyperlipidemia, hypertension, history of colon cancer status post resection, left breast cancer, reflux, diabetes, presents with complaints of dyspnea, found to be anemic with black, tarry stools, hemoglobin of 7.6, transfused 2 units of [facility]. Found to be fluid overloaded during her hospital stay and was diuresed. CURRENT ISSUES: 1. Acute blood loss anemia secondary to gastrointestinal (GI) bleed in the setting of Xarelto for atrial fibrillation. Patient had been put on Protonix, ferrous sulfate. Will need endoscopy once medically stable. 2. Acute on chronic diastolic heart failure, compensated with severe aortic stenosis and severe pulmonary hypertension, PA pressure of 66 mm of mercury. Currently on Lasix. Repeat chest x-ray has been obtained. Continue her fluid restriction, diuresis to net negative balance, monitor patient's blood pressure. 3. Chronic atrial fibrillation. Rate controlled at the moment. We have discontinued patient's enalapril, atenolol. 4. Hypertension. Patient's diltiazem, enalapril, and atenolol have been discontinued due to orthostasis with systolic pressure dropping to 64/36. 5. Acute hypoxic respiratory failure. Currently requiring 2 liters of oxygen secondary to congestive heart failure (CHF) and severe anemia. 6. Acute blood loss anemia. Patient did receive 2 units of red blood cells (RBC) at [facility]. MTDD
--- NOTE | 2019-12-17 11:11 | CR ---
DATE OF CONSULTATION: 12/14/2019 REQUESTING PHYSICIAN: Dr. Bone. REASON FOR CONSULTATION: Anemia, heart failure. HISTORY OF PRESENT ILLNESS: Ms. Ramirez is an 89-year-old female, who was transferred from [facility] on 12/10/2019 for congestive heart failure and new onset anemia. On presentation, she was in heart failure and required diuresis. In view of a stable hemoglobin after transfusion, it was decided that endoscopy can wait until her diuresis is completed. At this point, I was recalled to see this patient as her diuresis now is sufficient to undergo endoscopy. Patient denies any abdominal pain. No nausea. No vomiting. She denies any black stools or dark colored stools. PAST MEDICAL HISTORY: 1. CHF. 2. Hypertension. 3. Colon cancer; status post resection. 4. History of gastroesophageal reflux disease. 5. History of atrial fibrillation on Xarelto; this has been held since 12/10/2019. PAST SURGICAL HISTORY: 1. Colonoscopy within the past year in [place]; reportedly normal as per her daughter. 2. Colon resection for colon cancer. 3. Cholecystectomy. FAMILY HISTORY: Negative for colorectal carcinoma, inflammatory bowel disease. SOCIAL HISTORY: Negative for tobacco. Negative for alcohol. ALLERGIES: No known drug allergies. PHYSICAL EXAMINATION: VITALS: Temperature 97.6, pulse 73, respiratory rate 20, blood pressure 108/55, pulse ox 92% on room air. HEENT: Grossly without abnormality. NECK: Supple. No lymphadenopathy or thyromegaly. CHEST: Coarse distant breath sounds. No rhonchi or crackles. HEART: Irregular with ectopy. No murmurs or gallops. ABDOMEN: Soft, nontender, good bowel sounds. No masses felt. EXTREMITIES: Negative for edema. LABORATORY WORK: WBC 8.2, hemoglobin 9.9, hematocrit 35.3, platelet count 314,000. BUN 17, creatinine 0.71. IMPRESSION AND PLAN: Upper GI bleed is most likely, in view of a very recent negative colonoscopy, and at this time I would recommend an upper endoscopy. LOUD
[2019-12-17] MEDS ORDERED: SELF1KIT MC (11:48)
--- NOTE | 2019-12-17 13:50 | DS.PDOC ---
Discharge Summary General Date of Admission Dec 09, 2019 at 23:46 Date of Discharge 12/17/19 Discharge Summary DISCHARGE DIAGNOSES: Acute on chronic diastolic congestive heart failure exacerbation with preserved systolic function. Symptomatic anemia. Acute blood loss anemia. Acute upper GI bleed secondary to Xarelto Chronic atrial fibrillation. Erosive Gastropathy Gastric Erosion Small Hiatal Hernia HTN with episodes of hypotension due to diuresis hyperlipidemia DISCHARGE MEDICATIONS: See below. PUBLIC TRANSIT SPECIALIST: Dr. Bean hand upper and bottom lacer. PROCEDURES during this admission: EGD 12/17/2019 Discharge instructions: Continue to HOLD XARELTO for 5 days. Primary care physician to resume Xarelto if no overt GI bleed. Follow-up appointment with primary care physician within 5 days of discharge. Follow-up appointment Dr. Carr within 1 week of hospital discharge. Emergency room if recurrent GI bleed occur at home. HISTORYOF PRESENTING ILLNESS: HOSPITAL COURSE: Acute on Chronic Diastolic CHF - admission weight was 62 kg and discharge weight was 57.8 - Echo 12/09: Preserved EF, Diastolic dysfunction (Grade 2), - she remained net negative balance with weight loss on iv lasix diuresis, without changes in her renal function. Acute blood loss anemia - due to acute UGIBleed from erosive gastropathy and gastric erosion in the setting of chronic NOAC Xarelto - Patient denies any chest pain, shortness of breath or palpitations - Hemoglobin has remained stable throughout this hospitalization remaining at 10.1-9.9 at hospital discharge. - Patient has received 2 units of PRBC transfusion prior to departure of [facility] erosive gastropathy and gastric erosion -in the setting of chronic NOAC Xarelto -held NOAC -transfused 2uRBC at [facility] -outpt fu w Dr. Bean to discuss biopsy results -continue on oral PPI indefinitely Chronic A. fib - Patient's rhythm appears to be rate controlled - c/w atenolol with holding parameters - Currently anticoagulation is on hold; Xarelto HTN - Patient has episodes of hypotension while on diuresis - She has remained asymptomatic throughout the hospital course - s/p Amlodipine - c/w atenolol with holding parameters - c/w Cardizem short acting with hold parameters; s/p Cardizem CD DLP - c/w Pravastatin NIDDM2 - c/w ISS COPD - Mild wheezing noted on expiration - Patient does not appear to be in any distress - c/w inhaled therapy as ordered Osteoarthritis Hx of L Breast CA - s/p Mastectomy Hx of Colon CA - s/p Resection GERD - c/w Protonix DVT prophylaxis - c/w TEDs/Sequentials (re: suspected GI bleed) DISCHARGE PHYSICAL EXAMINATION: Vitals (See below) General: Sitting up in bed, does not appear to be in any acute distress, is awake and alert HEENT: NC, AT CVS: +S1S2 Lungs: Air entry is fair bilaterally without evidence of rhonchi, crackles or wheezing Abdomen: Soft, nondistended and nontender Extremities: Lower extremities reveal improvement of edema - however, still at 1+, - Calf tenderness DISCHARGE LABORATORY DATA: SEE BELOW EGD 12/16/2019 DR. BEAN The examined esophagus was normal. Multiple dispersed, small non-bleeding erosions were found in the gastric antrum. There were stigmata of recent bleeding. Biopsies were taken with a cold forceps for histology. Small Hiatal Hernia. The exam of the stomach was otherwise normal. The examined duodenum was normal. Impression: - Normal esophagus. - Recently bleeding erosive gastropathy/shallow erosions with small fleccs of heme type material. Biopsied. - Small Hiatal Hernia. - Normal examined duodenum. Recommendation: - Telephone endoscopist for pathology results in 2 weeks. - Use a proton pump inhibitor PO daily indefinitely. IMAGING STUDIES: VASCULAR US B/L LE: NO DVT. SOFT TISSUE EDEMA TIME SPENT ON DISCHARGE: 30 MIN. Vital Signs/I&Os Vital Signs Date Time Temp Pulse Resp B/P (MAP) Pulse Ox O2 Delivery O2 Flow Rate FiO2 12/17/19 10:00 97.2 102 17 127/76 (93) 99 Nasal Cannula 2.0 I&O- Last 24 Hours up to 6 AM 12/17/19 06:00 Intake Total 150 ml Output Total 200 ml Balance -50 ml Laboratory Data Labs 24H Laboratory Tests 2 12/16/19 18:08: Bedside Glucose (Misc Panel) 137H 12/16/19 19:56: Bedside Glucose (Misc Panel) 184H 12/17/19 05:22: Nucleated Red Blood Cells % (auto) 0.0, Anion Gap 2L, Glomerular Filtration Rate > 60.0, Calcium Level 8.7L, Magnesium Level 2.3 12/17/19 11:43: Bedside Glucose (Misc Panel) 221H CBC/BMP Laboratory Tests 12/17/19 05:22 FSBS Laboratory Tests Test 12/16/19 18:08 12/16/19 19:56 12/17/19 11:43 Range/Units Bedside Glucose (Misc Panel) 137 184 221 83-110 MG/DL Microbiology Microbiology 12/16/19 Respiratory Virus Panel (PCR) (LAKISHA) - Final, Complete 12/10/19 Blood Culture - Final, Complete NO GROWTH AFTER 5 DAYS 12/10/19 Blood Culture - Final, Complete NO GROWTH AFTER 5 DAYS Discharge Medications Scheduled Amlodipine Besylate (Amlodipine Besylate) 10 Mg Tablet, 10 MG PO DAILY, (Reported) Atenolol (Atenolol) 100 Mg Tablet, 100 MG PO DAILY, (Reported) Diltiazem HCl (Diltiazem 24Hr ER) 180 Mg Cap.er.24h, 180 MG PO DAILY, (Reported) Empagliflozin (Jardiance) 10 Mg Tablet, 10 MG PO DAILY, (Reported) Enalapril Maleate (Enalapril Maleate) 20 Mg Tablet, 20 MG PO DAILY, (Reported) Ferrous Sulfate (Ferrous Sulfate) 325 Mg Tablet, 325 MG PO DAILY, (Reported) Furosemide (Furosemide) 20 Mg Tablet, 20 MG PO BID, (Reported) Pantoprazole Sodium (Protonix) 40 Mg Granpkt.dr, 40 MG PO DAILY Pravastatin Sodium (Pravastatin Sodium) 40 Mg Tablet, 40 MG PO 4XWK, (Reported) FRIDAY, FRIDAY, FRIDAY AND FRIDAY AT BEDTIME Allergies Coded Allergies: No Known Drug Allergies (Verified Allergy, Unknown, 12/04/19) RONNELL MORTENSEN MD Dec 17, 2019 13:43
[2019-12-18] MEDS ORDERED: PANTOPRAZOLE 40MG TAB (PROTONIX) PO SCH (09:00)
--- NOTE | 2019-12-21 15:00 | REP ---
PORTABLE CHEST X-RAY: SINGLE VIEW HISTORY: Shortness of breath. COMPARISON: Chest x-ray 12/10/2019. FINDINGS: Oxygen delivery tubing is noted. The left breast is surgically absent and numerous surgical clips are seen throughout the axilla and in or overlying the left chest. Mild cardiomegaly is observed unchanged. No acute infiltrate is seen. There is slight blunting of the right lateral pleural angle. Pulmonary vasculature is not increased. IMPRESSION: Cardiomegaly unchanged. No acute infiltrate. Slight blunting of the right lateral pleural angle. Status post left mastectomy. MTDD
== END 2019-12-17 15:38 | disposition home health service (06) | DRG 377 ==
LOC: M MSPAV 23:46
PROVIDERS: ADMIT Internal Medicine; ATTEND General Practice
PROC: 0DB68ZX Excision of Stomach, Via Natural or Artificial Opening Endoscopic, Diagnostic (ICD-10-PCS; principal; 2019-12-17)
DX: K92.2 Gastrointestinal hemorrhage, unspecified (principal); I50.33 Acute on chronic diastolic (congestive) heart failure; D62 Acute posthemorrhagic anemia; I48.20 Chronic atrial fibrillation, unspecified; D68.32 Hemorrhagic disorder due to extrinsic circulating anticoagulants; I11.0 Hypertensive heart disease with heart failure; E78.5 Hyperlipidemia, unspecified; K21.9 Gastro-esophageal reflux disease without esophagitis; E11.9 Type 2 diabetes mellitus without complications; M79.89 Other specified soft tissue disorders; K44.9 Diaphragmatic hernia without obstruction or gangrene; M19.90 Unspecified osteoarthritis, unspecified site; I35.0 Nonrheumatic aortic (valve) stenosis; J44.9 Chronic obstructive pulmonary disease, unspecified; I27.20 Pulmonary hypertension, unspecified; I95.9 Hypotension, unspecified; K31.9 Disease of stomach and duodenum, unspecified; K59.00 Constipation, unspecified; Z87.891 Personal history of nicotine dependence; Z85.828 Personal history of other malignant neoplasm of skin; Z79.01 Long term (current) use of anticoagulants; Z85.3 Personal history of malignant neoplasm of breast; Z79.899 Other long term (current) drug therapy; Z85.038 Personal history of other malignant neoplasm of large intestine; Z90.49 Acquired absence of other specified parts of digestive tract; Z90.12 Acquired absence of left breast and nipple

== ENCOUNTER 2020-01-05 10:50 | Inpatient (IN) | payer MEDICARE, MEDICAID ==
[~2020-01-05] VITALS: Ht 152.4 cm; Wt 64.5 kg
[~2020-01-05 10:50] MED LIST changes: +AMLO1TAB25 PO; +ATEN100T PO; +DILT180C43 PO; +ENAL20TA11 PO; +FERR1TAB8 PO; +FURO20TA2 PO; +JARD1TAB PO; +PRAV40TA2 PO; +PROTPAK PO; +SELF1KIT MC; +XARE20TA PO
[2020-01-05] MEDS ORDERED: ASPI81CH33 PO (11:36)
[2020-01-05] MEDS ORDERED: COMBAER6 INH (11:36)
[2020-01-05] MEDS ORDERED: CVS50CAP PO (11:36)
[2020-01-05] MEDS ORDERED: OMEP-221 PO (11:36)
[2020-01-05] MEDS ORDERED: FERR240T PO (11:36)
[2020-01-05] MEDS ORDERED: CARV6.25 PO (11:36)
--- NOTE | 2020-01-05 12:45 | REPVR ---
PROCEDURE INFORMATION: Exam: XR Chest, 1 View Exam date and time: 01/05/2020 12:26 PM Age: 89 years old Clinical indication: Cough and dyspnea; Additional info: Dyspnea/cough TECHNIQUE: Imaging protocol: XR of the chest Views: 1 view. COMPARISON: [place] PORTABLE CHEST X-RAY 12/16/2019 10:01 AM FINDINGS: Tubes, catheters and devices: Multiple surgical clips project over the left chest wall. Lungs: Mild consolidation in the left lung base. Pleural space: Unremarkable. No pleural effusion. No pneumothorax. Heart/Mediastinum: Stable prominence of the cardiac silhouette. Vasculature: Calcification of the thoracic aorta. Bones/joints: Degenerative change of the spine. IMPRESSION: Mild patchy consolidation in the left lung base. Electronically signed by: Beata Abad On 01/05/2020 12:45:30 PM
[2020-01-05 12:48] LABS: BASO % 0.3 % (0.0-1.0); EOS # 0.1 10^3/uL (0.0-0.5); EOS % 0.4 % (0.0-3.0); HEMATOCRIT 36.7 % (36.0-47.0); HEMOGLOBIN 9.9 g/dl (12.0-15.5); LYMPH # 0.4 10^3/uL (1.5-5.0); LYMPH % 3.6 % (24.0-44.0); MEAN CORPUSCULAR HEMOGLOBIN 25.1 pg (27.0-33.0); MEAN CORPUSCULAR VOLUME 93.1 fl (80.0-96.0); MONO # 0.3 10^3/uL (0.0-0.8); MONO % 2.3 % (0.0-5.0); NEUTROPHILS # 10.4 10^3/uL (1.5-8.5); NEUTROPHILS % 92.7 % (36.0-66.0); PLATELET COUNT, AUTOMATED 349 10^3/uL (150-450); RED BLOOD COUNT 3.94 10^6/uL (4.00-5.40); WHITE BLOOD COUNT 11.2 10^3/uL (4.0-10.0)
[2020-01-05] MEDS ORDERED: cefTRIAXone SOD 1 GM in D5W MINI-BAG PLUS 50 ML IV ONE (13:00)
[2020-01-05] MEDS ORDERED: FUROSEMIDE 100MG/10ML VIAL (J1940) IV ONE (13:00)
[2020-01-05] MEDS ORDERED: ALBUTEROL SULFATE 2.5 MG/0.5 ML INH NEB SOLN NEB ONE (13:00)
[2020-01-05] MEDS ORDERED: AZITHROMYCIN INJ 500 MG, VIAL MATE ADAPTER 1 EACH in D5W 250 ML IV ONE (13:00)
[2020-01-05 13:11] LABS: ALBUMIN 3.2 GM/DL (3.2-5.2); ALT/SGPT 20 U/L (12-78); BILIRUBIN,DIRECT 0.2 MG/DL (0.0-0.2); BILIRUBIN,TOTAL 0.5 MG/DL (0.2-1.0); BLOOD UREA NITROGEN 25 MG/DL (7-18); CARBON DIOXIDE LEVEL 33 MEQ/L (21-32); CHLORIDE LEVEL 108 MEQ/L (98-107); CK-MB VALUE MASS 2.2 NG/ML (<3.6); CPK CREATINE PHOSPHOKINASE 34 U/L (26-192); CREATININE FOR GFR 0.82 MG/DL (0.55-1.30); GLOMERULAR FILTRATION RATE > 60.0 (>32); GLUCOSE, FASTING 224 MG/DL (70-100); MB/CK RELATIVE INDEX 6.47 (< OR =4); POTASSIUM SERUM 4.1 MEQ/L (3.5-5.1); SODIUM LEVEL 144 MEQ/L (136-145); TROPONIN I < 0.02 NG/ML (< 0.10)
[2020-01-05 13:46] LABS: ABG HCO3 25.7 MEQ/L (22.0-26.0); ABG O2 SATURATION 98.5 % (95.0-99.0); ABG PARTIAL PRESSURE CO2 36.6 mmHg (35.0-45.0); ABG PARTIAL PRESSURE O2 133.9 mmHg (75.0-100.0); ABG STANDARD HCO3 26.3 MEQ/L (22.0-26.0); ABG TOTAL CO2 26.8 MEQ/L (23.0-31.0); ABG pH (ARTERIAL) 7.464 UNITS (7.350-7.450)
[2020-01-05 13:47] LABS: NT-PRO BNP 2967 PG/ML (<450)
[2020-01-05] MEDS ORDERED: ASPI81TA26 PO (14:22)
[2020-01-05] MEDS ORDERED: FERR325T16 PO (14:22)
[2020-01-05] MEDS ORDERED: DOCU100C17 PO (14:22)
--- NOTE | 2020-01-05 14:23 | HPEPDOC ---
[facility] Medical History & Physical Date of Admission Jan 05, 2020 Date of Service: Jan 05, 2020 Attending Physician: Alma Pathak MD History and Physical CHIEF COMPLAINT: Increased shortness of breath HISTORY OF PRESENT ILLNESS: The patient is an 89-year-old female with past medical history of diastolic HF, atrial fibrillation, HTN, HLD, history of breast cancer, history of colon cancer who presented to [facility] ER with chief complaint if increased SOB. Patient states that beginning last evening she had increased shortness of breath which kept her up during the night. She states that she's had increased lightheadedness and lower extremity weakness during this time as well her shortness of breath is improved when sitting up but worsened with activity. She denies cough, chest pain, fever, chills, nausea, vomiting, abdominal pain. In the emergency room the patient's vital signs showed she was 9192 percent on room air, she was placed on 2 L nasal cannula which brought her oxygen saturatio n to 96%. Her heart rate was found to be atrial fibrillation (a known arrhythmia to her) 117672 bpm. Respiratory rate was 1624, blood pressure stable. Chest x- ray showed new left lower lobe infiltrate, concerning for healthcare associate pneumonia with a recent admission in late Novemberearly December. Lactic acid was within normal limits, WBC 11.2, BNP 2967, increased from prior BNP of 1670. Troponin negative. She was given 60 mg IV lasix in ER. Blood sugar elevated at 224. UA negative. She was admitted for healthcare associated pneumonia, acute on chronic diastolic CHF exacerbation, atrial fibrillation with RVR . REVIEW OF SYSTEMS: CONSTITUTIONAL: Denies loss of appetite, fever, night sweats EYES: Denies eye drainage, eye pain, visual changes, dry/irritated eye EARS, NOSE, MOUTH, THROAT: Denies difficulty hearing, ringing in ears, mouth sores, loose teeth, sore throat, facial numbness or pain NECK: Denies swollen glands CARDIOVASCULAR: Denies racing heart, chest pains RESPIRATORY: Denies night sweats, sputum production, oxygen at home, coughing up blood, cough lasting > 1 month GASTROINTESTINAL: Denies abdominal pain, constipation, bloody stool, diarrhea, heartburn, nausea, vomiting GENITOURINARY: Denies painful urination, bloody urine, frequent urination, urgency, leaking urine, impotence MUSCULOSKELETAL: Denies joint pain, muscle pain, leg swelling INTEGUMENTARY: Denies rash, itching, new skin lesion, change in existing skin lesion, hair loss or increase, breast changes. NEUROLOGICAL: Denies difficulty walking, numbness or tingling PSYCHIATRIC: Denies depression, anxiety, recurrent bad thoughts, mood swings, hallucinations PAST MEDICAL HISTORY: 1. History of diastolic congestive heart failure 2. HLD 3. HTN 4. History of colon cancer s/p resection 5. History of left breast cancer 6. GERD 7. DM2 8. Osteoarthritis 9. COPD? 10. Atrial Fibrillation 11. Hx of GI bleed 2/2 to xarelto PAST SURGICAL HISTORY: 1. Colon resection 2. Cholecystectomy 3. Mastectomy (left) 4. Skin cancer removal SOCIAL HISTORY: Former smoker of 1-2 PPW for 50 years, quit several years ago. Denies alcohol use and drug use. Lives with son Hitesh bear. She is a [employer]. FAMILY HISTORY: Mother: CVA, age in 70's Father: CVA, age in 70's ALLERGIES: Please see below. HOME MEDICATIONS: Please see below. PHYSICAL EXAMINATION: VS: Please see below CONSTITUTIONAL: No acute distress, sitting up in bed, AAO x 3 EYES: PERRLA, EOM intact HENT, MOUTH: Normocephalic, atraumatic, moist mucous membranes, poor dentition NECK: SUPPLE, no JVD, no lymphadenopathy, no carotid bruit CV: tachycardic, irregularly irregular rhythm, S1S2 normal, no murmurs/r ubs/gallops RESPIRATORY: Mild exp wheezing , no rales/rhonchi GI: obese abdomen, BS positive in 4 quadrants, soft, nontender, nondistended, no rebound or guarding, no organomegaly : Deferred MUSCULOSKELETAL: Normal ROM for patient. lateral deviation of both hands with some swelling, not warm to touch or tender to touch. No cyanosis, clubbing, joint deformity, +2-3 pitting extremity edema of all extremities, edema extends to groin in lower ext INTEGUMENTARY: Multiple bruises on bilateral lower ext small skin tear on left post forearm. Wound to anterior left lower ext. NEUROLOGIC: Cranial Nerves II-XII are intact, no focal deficits PSYCHIATRIC: Mood and affect are normal LABORATORY DATA: Please see below MICROBIOLOGY Sputum cx ordered BCx pending x 2 sets IMAGING: CXR: Mild patchy consolidation in the left lung base. Echocardiogram 11/2019: Normal sinus rhythm without intraventricular conduction disturbance. M-mode and two-dimensional echocardiography was performed with pulsed, continuous wave, color flow, and tissue Doppler studies. Normal left ventricular size and wall thickness with septal wall motion abnormality and flattening related to right ventricular pressure overload. Preserved global resting left ventricular (LV) systolic function. Mildly dilated left atrium with grade 2 left ventricular (LV) diastolic dysfunction with abbreviated early mitral deceleration time, but current estimated mean left atrial pressure upper limits of normal. Prominently dilated right heart chambers with right ventricular free wall hypokinesis and Doppler evidence of severe pulmonary hypertension. Prominently dilated inferior vena cava (IVC) with absent respiratory collapse inkeeping with a significantly elevated central venous pressure/right heart failure. Normal aortic dimensions. Severe calcific aortic stenosis with trace insufficiency (low mean gradient is related to reduce forward stroke volume related to mitral insufficiency and severe pulmonary hypertension). Moderate degenerative changes of the mitral valvular apparatus without inflow tract obstruction and moderate insufficiency. Normal appearing tricuspid valve with severe tricuspid insufficiency. No apparent intracardiac mass or pericardial effusion. Although the patient does have severe aortic stenosis, her chief determinate of her life expediency is her severe pulmonary hypertension and right heart failure. Her prognosis is guarded measured in months rather than years. ASSESSMENT: 89-year-old female with past medical history of diastolic HF, atrial fibrillation, HTN, HLD, history of breast cancer, history of colon cancer admitted for healthcare associated pneumonia, acute on chronic diastolic CHF exacerbation. PLAN: Health-care associated PNA, sepsis. -WBC 11.2, RR 16-24, HR 112-140 -CXR above -F/u BCx, sputum cx, daily labs -Supplemental O2, attempt to wean off -Starting on cefepime, levofloxacin. MRSA ordered, if positive add Vancomycin -Levalbuterol ATC and PRN Acute on chronic diastolic CHF with exacerbation -Last echo above, preserved EF at 60% -States to be compliant with meds, worsened BNP at 2967, +3 pitting edema in b/l lower ext to hips and upper ext -When sepsis under better control, consider increased diuresis -C/w home medications of BB, CCB, ACEi, daily lasix -Monitor I&O, daily wt Atrial fibrillation with RVR likely 2/2 to sepsis -HR 112-140 while in ER, worsened with sepsis -C/w CCB, BB, treatment for sepsis/HCAP above -Can add additional meds if needed -Monitor on tele closely DM type II -BS >200 -Holding home med -ISS, consistent carb diet, FS AC/HS HTN -Stable -C/w home meds HLD -C/w statin Hx of breast cancer s/p left mastectomy -F/u with PCP GERD -PPI DVT px -teds, SCD DISPOSITION: Admitted under inpatient status. Plan is PT/OT, hopeful for discharge home when medically improved. Vital Signs Vital Signs Date Time Temp Pulse Resp B/P (MAP) Pulse Ox O2 Delivery O2 Flow Rate FiO2 01/05/20 14:08 122 16 01/05/20 12:30 133/72 (92) 97 Nasal Cannula 2.0 01/05/20 11:02 95.9 Laboratory Data Labs 24H Laboratory Tests 2 01/05/20 12:06: Immature Granulocyte % (Auto) 0.7, Neutrophils (%) (Auto) 92.7H, Lymphocytes (%) (Auto) 3.6L, Monocytes (%) (Auto) 2.3, Eosinophils (%) (Auto) 0.4, Basophils (%) (Auto) 0.3, Neutrophils # (Auto) 10.4H, Lymphocytes # (Auto) 0.4L, Monocytes # (Auto) 0.3, Eosinophils # (Auto) 0.1, Basophils # (Auto) 0.0, Nucleated Red Blood Cells % (auto) 0.0, Anion Gap 3L, Glomerular Filtration Rate > 60.0, Calcium Level 9.0, Total Bilirubin 0.5, Direct Bilirubin 0.2, Aspartate Amino Transf (AST/SGOT) 13, Alanine Aminotransferase (ALT/SGPT) 20, Alkaline Phospha tase 77, Total Creatine Kinase 34, Creatine Kinase MB 2.2, Creatine Kinase MB Relative Index 6.47H, Troponin I < 0.02, AB-Hhu-H-Type Natriuretic Peptide 2967H, Total Protein 6.0L, Albumin 3.2, Albumin/Globulin Ratio 1.1L 01/05/20 13:15: Urine Color YELLOW, Urine Appearance CLEAR, Urine pH 5.0, Urine Specific [place] 1.030, Urine Protein NEGATIVE, Urine Glucose (UA) 3+H, Urine Ketones TRACEH, Urine Blood NEGATIVE, Urine Nitrite NEGATIVE, Urine Bilirubin NEGATIVE, Urine Urobilinogen 0.2, Urine Leukocyte Esterase NEGATIVE, Urine WBC (Auto) 0, Urine RBC (Auto) 8H, Urine Hyaline Casts (Auto) 0, Urine Bacteria (Auto) NEGATIVE, Urine Squamous Epithelial Cells 0, Urine Mucus (Auto) SMALL, Urine Yeast-Like Cells (Auto) SMALLH, Urine Sperm (Auto) , Lactic Acid Level 1.6 01/05/20 13:38: Blood Gas Bicarbonate Standard 26.3H, Arterial Blood pH 7.464H, Arterial Blood Partial Pressure CO2 36.6, Arterial Blood Partial Pressure O2 133.9H, Arterial Blood Total CO2 26.8, Arterial Blood HCO3 25.7, Arterial Blood Base Excess 2.0, Arterial Blood Oxygen Saturation 98.5 CBC/BMP Laboratory Tests 01/05/20 12:06 Microbiology Microbiology 01/05/20 Respiratory Virus Panel (PCR) (LAKISHA) - Final, Complete 01/05/20 Blood Culture, Received Pending Home Medications Scheduled Aspirin (Aspirin EC) 81 Mg Tablet.dr, 81 MG PO QPM Carvedilol (Carvedilol) 6.25 Mg Tablet, 6.25 MG PO BID Diltiazem HCl (Diltiazem 24Hr ER) 180 Mg Cap.er.24h, 180 MG PO DAILY Docusate Sodium (Docusate Sodium) 100 Mg Capsule, 100 MG PO QPM Empagliflozin (Jardiance) 10 Mg Tablet, 10 MG PO QPM Enalapril Maleate (Enalapril Maleate) 20 Mg Tablet, 20 MG PO DAILY Ferrous Gluconate (Ferrous Gluconate) 324 Mg Tablet, 324 MG PO DAILY Furosemide (Furosemide) 20 Mg Tablet, 40 MG PO DAILY Omeprazole (Omeprazole) 40 Mg Capsule.dr, 40 MG PO DAILY Pravastatin Sodium (Pravastatin Sodium) 40 Mg Tablet, 40 MG PO QPM Scheduled PRN Ipratropium/Albuterol Sulfate (Combivent Respimat 20-100 Mcg) 4 Gm Mist.inhal, 1 PUFF INH QID PRN for SOB/WHEEZING Allergies Coded Allergies: No Known Drug Allergies (Verified Allergy, Unknown, 12/04/19) A-FIB/CHADSVASC A-FIB History Current/History of A-Fib/PAF?: Yes Current PO Anticoag Therapy: No Age/Risk Factor Scoring CHADSVASC: CHADSVASC Response (Comments) Value Age Risk Factor Age >/= 75 years old 2 Gender Risk Factor Female 1 Hx of CHF Yes 1 Hx of HTN Yes 1 Hx of Stroke/TIA/or VTE No 0 Hx of Diabetes Yes 1 Hx of Vascular Disease Yes 1 Total 7 Treatment Treatment ordered: NONE Reason Anticoagulant not given: Other Other reason anticoagulant not: Hx of GI bleed, recent in past 1 month Alma Pathak MD Jan 05, 2020 14:23
[2020-01-05] MEDS ORDERED: ACETAMINOPHEN TAB 650MG DOSE (2X325MG) PO PRN (14:30)
[2020-01-05] MEDS ORDERED: DEXTROSE 50% 50 ML SYRINGE IV PRN (15:15)
[2020-01-05] MEDS ORDERED: COMBIVENT RESPIMAT 100-20MCG INHALER 4GM INH PRN (15:15)
[2020-01-05] MEDS ORDERED: GLUCAGON INJ 1MG VIAL SC PRN (15:15)
[2020-01-05] MEDS ORDERED: GLUCOSE 4GM CHEW TABLET PO PRN (15:15)
[2020-01-05] MEDS ORDERED: LEVALBUTEROL 1.25 MG/0.5 ML CONCENTRATE NEB NEB PRN (15:30)
--- NOTE | 2020-01-05 16:31 | ECGEPIP ---
[facility] - ED Test Date: 2020-01-05 Pat Name: OSKAR BABCOCK Department: Room: - Gender: Female Community Resource Consultant: YOSHI : [id number] Requested By: Javon Sandoval Order Number: [id number] Reading MD: Altaf Hicks Measurements Intervals [place] Rate: 122 P: SD: 0 QRS: 76 QRSD: 82 T: 0 QT: 288 QTc: 412 Interpretive Statements ATRIAL FIBRILLATION WITH RAPID VENTRICULAR RESPONSE LOW QRS VOLTAGE IN EXTREMITY LEADS ANTEROSEPTAL MYOCARDIAL INFARCTION, OF INDETERMINATE AGE Delayed anterior R wave progression Nonspecific T wave abnormality Rate increased racing done 12-04-19 Electronically Signed on 01-05-2020 16:30:35 EDT by Altaf Hicks
[2020-01-05] MEDS: PRAVASTATIN 20 MG TAB PO SCH (17:41)
[2020-01-05] MEDS: DOCUSATE SODIUM 100 MG CAP PO SCH (17:42)
[2020-01-05] MEDS: ASPIRIN 81 MG ENTERIC TAB PO SCH (17:42)
[2020-01-05] MEDS: HumaLOG INSULIN (NovoLOG) PER UNIT SC SCH ×2 (17:43→21:00)
[2020-01-05] MEDS: LevoFLOXacin IV 750 MG in IV 1 EA IV SCH (18:03)
[2020-01-05] MEDS: LEVALBUTEROL 1.25 MG/0.5 ML CONCENTRATE NEB NEB SCH (19:23)
[2020-01-05] MEDS: CARVedilol 6.25 MG TAB PO SCH (21:17)
[2020-01-05] MEDS: CEFEPIME HCL 2 GM in D5W MINI-BAG PLUS 50 ML IV SCH (21:18)
[2020-01-05 22:00] VITALS: BP 104/61
[2020-01-06] MEDS: LEVALBUTEROL 1.25 MG/0.5 ML CONCENTRATE NEB NEB SCH ×4 (02:00→19:36)
[2020-01-06 05:59] LABS: HEMATOCRIT 33.1 % (36.0-47.0); HEMOGLOBIN 9.2 g/dl (12.0-15.5); MEAN CORPUSCULAR HGB CONC 27.8 g/dl (32.0-36.5); MEAN CORPUSCULAR VOLUME 89.9 fl (80.0-96.0); PLATELET COUNT, AUTOMATED 343 10^3/uL (150-450); RED BLOOD COUNT 3.68 10^6/uL (4.00-5.40); WHITE BLOOD COUNT 8.6 10^3/uL (4.0-10.0)
[2020-01-06 06:00] VITALS: BP 121/89
[2020-01-06 06:24] LABS: ALBUMIN 2.7 GM/DL (3.2-5.2); ALT/SGPT 16 U/L (12-78); BILIRUBIN,TOTAL 0.5 MG/DL (0.2-1.0); BLOOD UREA NITROGEN 28 MG/DL (7-18); CALCIUM LEVEL 8.6 MG/DL (8.8-10.2); CARBON DIOXIDE LEVEL 31 MEQ/L (21-32); CHLORIDE LEVEL 109 MEQ/L (98-107); CREATININE FOR GFR 0.87 MG/DL (0.55-1.30); GLOMERULAR FILTRATION RATE > 60.0 (>32); GLUCOSE, FASTING 202 MG/DL (70-100); POTASSIUM SERUM 4.4 MEQ/L (3.5-5.1); SODIUM LEVEL 144 MEQ/L (136-145); TOTAL PROTEIN 5.4 GM/DL (6.4-8.2)
[2020-01-06] MEDS: diltiaZEM **CD** 180 MG CAP PO SCH (08:16)
[2020-01-06] MEDS: HumaLOG INSULIN (NovoLOG) PER UNIT SC SCH ×4 (08:16→21:02)
[2020-01-06] MEDS: CARVedilol 6.25 MG TAB PO SCH ×2 (08:17→21:01)
[2020-01-06] MEDS: FUROSEMIDE 20 MG TAB PO SCH (08:17)
[2020-01-06] MEDS: ENALAPRIL MALEATE 10 MG TAB PO SCH (08:17)
[2020-01-06] MEDS: FERROUS GLUCONATE 324 MG TAB PO SCH (08:17)
[2020-01-06] MEDS: OMEPRAZOLE 20 MG CAP PO SCH (08:18)
[2020-01-06] MEDS: CEFEPIME HCL 2 GM in D5W MINI-BAG PLUS 50 ML IV SCH ×2 (09:49→21:01)
[2020-01-06 14:27] VITALS: BP 82/41
[2020-01-06 14:30] VITALS: BP 104/52
--- NOTE | 2020-01-06 17:29 | IPNPDOC ---
Date Seen The patient was seen on 01/06/20. Progress Note SUBJECTIVE: Slightly hypotension with systolic 88mmHg this afternoon, normal systolic 109- 140 mmHg. Holding parameters placed on several meds. Unable to produce sputum sample. WBC improved but she appears SOB still, adding steroids. She denies chest pain, n/v/d, fevers or chills. OBJECTIVE: PHYSICAL EXAMINATION: VS: Please see below CONSTITUTIONAL: Appears SOB with speaking but not in acute distress, sitting up in bed, AAO x 3 EYES: PERRLA, EOM intact HENT, MOUTH: Normocephalic, atraumatic, moist mucous membranes, poor dentition NECK: SUPPLE, no JVD, no lymphadenopathy, no carotid bruit CV: tachycardic, irregularly irregular rhythm, S1S2 normal, no murmurs/rubs/gallops RESPIRATORY: Mild exp wheezing , no rales/rhonchi GI: obese abdomen, BS positive in 4 quadrants, soft, nontender, nondistended, no rebound or guarding, no organomegaly : Deferred MUSCULOSKELETAL: Normal ROM for patient. lateral deviation of both hands with some swelling, not warm to touch or tender to touch. No cyanosis, clubbing, joint deformity, +2-3 pitting extremity edema of all extremities, edema extends to groin in lower ext INTEGUMENTARY: Multiple bruises on bilateral lower ext small skin tear on left post forearm. Wound to anterior left lower ext. NEUROLOGIC: Cranial Nerves II-XII are intact, no focal deficits PSYCHIATRIC: Mood and affect are normal LABORATORY DATA: Please see below MICROBIOLOGY Sputum cx ordered but unable to be produced BCx pending x 2 sets: NG thus far IMAGING: CXR: Mild patchy consolidation in the left lung base. Echocardiogram 11/2019: Normal sinus rhythm without intraventricular conduction disturbance. M-mode and two-dimensional echocardiography was performed with pulsed, continuous wave, color flow, and tissue Doppler studies. Normal left ventricular size and wall thickness with septal wall motion abnormality and flattening related to right ventricular pressure overload. Preserved global resting left ventricular (LV) systolic function. Mildly dilated left atrium with grade 2 left ventricular (LV) diastolic dysfunction with abbreviated early mitral deceleration time, but current estimated mean left atrial pressure upper limits of normal. Prominently dilated right heart chambers with right ventricular free wall hypokinesis and Doppler evidence of severe pulmonary hypertension. Prominently dilated inferior vena cava (IVC) with absent respiratory collapse inkeeping with a significantly elevated central venous pressure/right heart vera lure. Normal aortic dimensions. Severe calcific aortic stenosis with trace insufficiency (low mean gradient is related to reduce forward stroke volume related to mitral insufficiency and severe pulmonary hypertension). Moderate degenerative changes of the mitral valvular apparatus without inflow tract obstruction and moderate insufficiency. Normal appearing tricuspid valve with severe tricuspid insufficiency. No apparent intracardiac mass or pericardial effusion. Although the patient does have severe aortic stenosis, her chief determinate of her life expediency is her severe pulmonary hypertension and right heart failure. Her prognosis is guarded measured in months rather than years. ASSESSMENT: 89-year-old female with past medical history of diastolic HF, atrial fibrillation, HTN, HLD, history of breast cancer, history of colon cancer admitted for healthcare associated pneumonia, acute on chronic diastolic CHF exacerbation. PLAN: Health-care associated PNA, sepsis. -WBC wnl, RR improved at 14-18, HR 104-116 -CXR above -Micro above, unable to provide sputum cx, f/u daily labs -Supplemental O2, attempt to wean off -C/w cefepime, levofloxacin. MRSA neg -Levalbuterol ATC and PRN, adding steroids Acute on chronic diastolic CHF with exacerbation -Still + fluid balance over 24 hours, started fluid restriction of 1500 mL/day -Last echo above, preserved EF at 60% -States to be compliant with meds, worsened BNP at 2967, +3 pitting edema in b/l lower ext to hips and upper ext -When sepsis under better control, consider increased diuresis -C/w home medications of BB, CCB, ACEi, daily lasix -When BP improves, consider extra dose lasix -Monitor I&O, daily wt Atrial fibrillation with RVR likely 2/2 to sepsis, slightly improved -HR 109-113 -C/w CCB, BB, treatment for sepsis/HCAP above -Can add additional meds if needed -Monitor on tele closely DM type II -BS >200 -Holding home med -ISS, consistent carb diet, FS AC/HS HTN -Stable -C/w home meds HLD -C/w statin Hx of breast cancer s/p left mastectomy -F/u with PCP GERD -PPI DVT px -teds, SCD DISPOSITION: Admitted under inpatient status. Plan is PT/OT, hopeful for discharge home when medically improved. VS, I&O, 24H, [place] Vital Signs/I&O Vital Signs Date Time Temp Pulse Resp B/P (MAP) Pulse Ox O2 Delivery O2 Flow Rate FiO2 01/06/20 14:30 104/52 (69) 01/06/20 14:27 98.1 104 14 95 Nasal Cannula 2.0 I&O- Last 24 Hours up to 6 AM 01/06/20 06:00 Intake Total 420 ml Output Total 0 ml Balance 420 ml Laboratory Data 24H LABS Laboratory Tests 2 01/05/20 18:57: Methicillin-Resist S.aureus DNA PCR NOT DETECTED 01/05/20 20:52: Bedside Glucose (Misc Panel) 229H 01/06/20 05:30: Nucleated Red Blood Cells % (auto) 0.0, Anion Gap 4L, Glomerular Filtration Rate > 60.0, Calcium Level 8.6L, Total Bilirubin 0.5, Aspartate Amino Transf (AST/SGOT) 9, Alanine Aminotransferase (ALT/SGPT) 16, Alkaline Phosphatase 68, Total Protein 5.4L, Albumin 2.7L, Albumin/Globulin Ratio 1.0L 01/06/20 11:18: Bedside Glucose (Misc Panel) 217H 01/06/20 16:50: Bedside Glucose (Misc Panel) 181H CBC/BMP Laboratory Tests 01/06/20 05:30 Microbiology Microbiology 01/05/20 Blood Culture - Preliminary, Resulted No growth after 24 hours . All specim... 01/05/20 Respiratory Virus Panel (PCR) (LAKISHA) - Final, Complete 01/05/20 Blood Culture - Preliminary, Resulted No growth after 24 hours . All specim... Current Medications Current Medications Medications (Trade) Dose Ordered Sig/Nidia Route PRN Reason Start Time Stop Time Status Last Admin Dose Admin Acetaminophen (Tylenol Tab) 650 mg Q4H PRN PO PAIN OR FEVER 01/05/20 14:30 Albuterol/ Ipratropium (Combivent Respimat 100-20mcg) 1 puff QIDP PRN INH SOB/WHEEZING 01/05/20 15:15 Aspirin (Ecotrin) 81 mg QPM@1800 PO 01/05/20 18:00 01/05/20 17:42 Carvedilol (COReg) 6.25 mg BID PO 01/05/20 21:00 01/06/20 08:17 Cefepime HCl 2 gm/ Dextrose 50 ml @ 100 mls/hr Q12H IV 01/05/20 22:00 01/06/20 09:49 Dextrose (Dextrose 50%) 25 ml ASDIRECTED PRN IV SEE LABEL COMMENTS 01/05/20 15:15 Diltiazem HCl (Cardizem Cd) 180 mg DAILY PO 01/06/20 09:00 01/06/20 08:16 Docusate Sodium (Colace) 100 mg QPM@1800 PO 01/05/20 18:00 01/05/20 17:42 Enalapril Maleate (Vasotec) 20 mg DAILY PO 01/06/20 09:00 01/06/20 08:17 Ferrous Gluconate (Fergon) 324 mg DAILY PO 01/06/20 09:00 01/06/20 08:17 Furosemide (Lasix) 40 mg DAILY PO 01/06/20 09:00 01/06/20 08:17 Glucagon (Glucagon) 1 mg ASDIRECTED PRN SC SEE LABEL COMMENTS 01/05/20 15:15 Glucose (Glucose) 16 GM ASDIRECTED PRN PO SEE LABEL COMMENTS 01/05/20 15:15 Home Med (Med Rec Complete!) ASDIRECTED XX 01/05/20 14:30 01/05/20 14:25 DC Insulin Human Lispro (HumaLOG INSULIN) SEE PROTOCOL TABLE AC SC 01/05/20 17:30 01/06/20 13:02 Insulin Human Lispro (HumaLOG INSULIN) SEE PROTOCOL TABLE QHS SC 01/05/20 21:00 Levalbuterol HCl (Xopenex Neb) 1.25 mg Q2HP PRN NEB SOB/WHEEZING 01/05/20 15:30 Levalbuterol HCl (Xopenex Neb) 1.25 mg RQ6H NEB 01/05/20 20:00 01/06/20 13:16 Levofloxacin 750 mg/IV Miscellaneous Supplies 150 ml @ 100 mls/hr Q48H IV 01/05/20 18:00 01/05/20 18:03 Omeprazole (PriLOSEC) 40 mg DAILY PO 01/06/20 09:00 01/06/20 08:18 Pravastatin Sodium (Pravachol) 40 mg QPM@1800 PO 01/05/20 18:00 01/05/20 17:41 Allergies Coded Allergies: No Known Drug Allergies (Verified Allergy, Unknown, 12/04/19) Alma Pathak MD Jan 06, 2020 17:29
[2020-01-06] MEDS: methylPREDNISolone 125MG 2ML VIAL IV SCH (17:49)
[2020-01-06] MEDS: PRAVASTATIN 20 MG TAB PO SCH (17:50)
[2020-01-06] MEDS: DOCUSATE SODIUM 100 MG CAP PO SCH (17:50)
[2020-01-06] MEDS: ASPIRIN 81 MG ENTERIC TAB PO SCH (17:50)
[2020-01-07] MEDS: LEVALBUTEROL 1.25 MG/0.5 ML CONCENTRATE NEB NEB SCH ×4 (01:14→19:46)
[2020-01-07] MEDS: methylPREDNISolone 125MG 2ML VIAL IV SCH ×2 (05:38→17:27)
[2020-01-07 06:00] VITALS: BP 156/89
[2020-01-07 06:12] LABS: HEMATOCRIT 33.9 % (36.0-47.0); HEMOGLOBIN 9.1 g/dl (12.0-15.5); MEAN CORPUSCULAR HEMOGLOBIN 24.5 pg (27.0-33.0); MEAN CORPUSCULAR HGB CONC 26.8 g/dl (32.0-36.5); MEAN CORPUSCULAR VOLUME 91.4 fl (80.0-96.0); PLATELET COUNT, AUTOMATED 332 10^3/uL (150-450); RED BLOOD COUNT 3.71 10^6/uL (4.00-5.40); WHITE BLOOD COUNT 7.7 10^3/uL (4.0-10.0)
[2020-01-07 06:35] LABS: ALBUMIN 2.8 GM/DL (3.2-5.2); ALT/SGPT 15 U/L (12-78); BILIRUBIN,TOTAL 0.5 MG/DL (0.2-1.0); BLOOD UREA NITROGEN 29 MG/DL (7-18); CALCIUM LEVEL 8.8 MG/DL (8.8-10.2); CARBON DIOXIDE LEVEL 32 MEQ/L (21-32); CHLORIDE LEVEL 106 MEQ/L (98-107); CREATININE FOR GFR 0.87 MG/DL (0.55-1.30); GLOMERULAR FILTRATION RATE > 60.0 (>32); GLUCOSE, FASTING 258 MG/DL (70-100); POTASSIUM SERUM 4.2 MEQ/L (3.5-5.1); SODIUM LEVEL 144 MEQ/L (136-145); TOTAL PROTEIN 5.5 GM/DL (6.4-8.2)
[2020-01-07] MEDS: OMEPRAZOLE 20 MG CAP PO SCH (08:15)
[2020-01-07] MEDS: HumaLOG INSULIN (NovoLOG) PER UNIT SC SCH ×4 (08:16→20:24)
[2020-01-07] MEDS: FERROUS GLUCONATE 324 MG TAB PO SCH (08:16)
[2020-01-07] MEDS: ENALAPRIL MALEATE 10 MG TAB PO SCH (08:16)
[2020-01-07] MEDS: FUROSEMIDE 20 MG TAB PO SCH (08:16)
[2020-01-07] MEDS: CARVedilol 6.25 MG TAB PO SCH ×2 (08:17→20:25)
[2020-01-07] MEDS: diltiaZEM **CD** 180 MG CAP PO SCH (08:18)
[2020-01-07] MEDS: CEFEPIME HCL 2 GM in D5W MINI-BAG PLUS 50 ML IV SCH (10:13)
[2020-01-07 14:00] VITALS: BP 109/56
[2020-01-07] MEDS: LevoFLOXacin IV 750 MG in IV 1 EA IV SCH (17:27)
[2020-01-07] MEDS: DOCUSATE SODIUM 100 MG CAP PO SCH (17:28)
[2020-01-07] MEDS: ASPIRIN 81 MG ENTERIC TAB PO SCH (17:28)
[2020-01-07] MEDS: PRAVASTATIN 20 MG TAB PO SCH (17:28)
--- NOTE | 2020-01-07 17:35 | IPNPDOC ---
Date Seen The patient was seen on 01/07/20. Progress Note SUBJECTIVE: BP much improved. Still unable to produce sputum sample despite acapella use. WBC wnl, afebrile. Breathing improved with steroids. BCx NG at 48 hrs. She denies chest pain, n/v/d, fevers or chills. OBJECTIVE: PHYSICAL EXAMINATION: VS: Please see below CONSTITUTIONAL: At times still appears SOB with speaking but not in acute distress, sitting up at bedside chair, AAO x 3 EYES: PERRLA, EOM intact HENT, MOUTH: Normocephalic, atraumatic, moist mucous membranes, poor dentition NECK: SUPPLE, no JVD, no lymphadenopathy, no carotid bruit CV: tachycardic, irregularly irregular rhythm, S1S2 normal, no murmurs/rubs/gallops RESPIRATORY: Mild exp wheezing , no rales/rhonchi GI: obese abdomen, BS positive in 4 quadrants, soft, nontender, nondistended, no rebound or guarding, no organomegaly : Deferred MUSCULOSKELETAL: Normal ROM for patient. lateral deviation of both hands with some swelling, not warm to touch or tender to touch. No cyanosis, clubbing, joint deformity, +2-3 pitting extremity edema of all extremities, edema extends to groin in lower ext INTEGUMENTARY: Multiple bruises on bilateral lower ext small skin tear on left post forearm. Wound to anterior left lower ext. NEUROLOGIC: Cranial Nerves II-XII are intact, no focal deficits PSYCHIATRIC: Mood and affect are normal LABORATORY DATA: Please see below MICROBIOLOGY BCx pending x 2 sets: NG thus far IMAGING: CXR: Mild patchy consolidation in the left lung base. Echocardiogram 11/2019: Normal sinus rhythm without intraventricular conduction disturbance. M-mode and two-dimensional echocardiography was performed with pulsed, continuous wave, color flow, and tissue Doppler studies. Normal left ventricular size and wall thickness with septal wall motion abnormality and flattening related to right ventricular pressure overload. Preserved global resting left ventricular (LV) systolic function. Mildly dilated left atrium with grade 2 left ventricular (LV) diastolic dysfunction with abbreviated early mitral deceleration time, but current estimated mean left atrial pressure upper limits of normal. Prominently dilated right heart chambers with right ventricular free wall hypokinesis and Doppler evidence of severe pulmonary hypertension. Prominently dilated inferior vena cava (IVC) with absent respiratory collapse inkeeping with a significantly elevated central venous pressure/right heart failure. Normal aortic dimensions. Severe calcific aortic stenosis with trace insufficiency (low mean gradient is related to reduce forward stroke volume related to mitral insufficiency and se johann pulmonary hypertension). Moderate degenerative changes of the mitral valvular apparatus without inflow tract obstruction and moderate insufficiency. Normal appearing tricuspid valve with severe tricuspid insufficiency. No apparent intracardiac mass or pericardial effusion. Although the patient does have severe aortic stenosis, her chief determinate of her life expediency is her severe pulmonary hypertension and right heart failure. Her prognosis is guarded measured in months rather than years. ASSESSMENT: 89-year-old female with past medical history of diastolic HF, atrial fibrillation, HTN, HLD, history of breast cancer, history of colon cancer admitted for healthcare associated pneumonia, acute on chronic diastolic CHF exacerbation. PLAN: Health-care associated PNA, resolved sepsis -WBC wnl, HR intermittently incr -CXR above -Micro above, unable to provide sputum cx, f/u daily labs -Supplemental O2 at home amount today -D/c cefepime, levofloxacin (Day 3), started on oral levofloxacin only to see how she does -Levalbuterol ATC and PRN, adding steroids Acute on chronic diastolic CHF with exacerbation -Last echo above, preserved EF at 60% -BNP at 2967, +3 pitting edema in b/l lower ext to hips and upper ext-what she says is her baseline. F/u BNP in AMs -C/w home medications of BB, CCB, ACEi, daily lasix + extra 20 mg lasix gerson -Monitor I&O, daily wt Atrial fibrillation with RVR likely 2/2 to sepsis, slightly improved -HR 86-122 -C/w CCB, BB, treatment for sepsis/HCAP above -Can add additional meds if needed -Monitor on tele closely DM type II -BS >300 on one reading today, likely worsened by steroids -Started on daily levemir 10 U QAM -ISS, consistent carb diet, FS AC/HS HTN -Stable -C/w home meds HLD -C/w statin Hx of breast cancer s/p left mastectomy -F/u with PCP GERD -PPI DVT px -teds, SCD. AC CI due to hx of GI bleed DISPOSITION: Admitted under inpatient status. PT/OT: Not safe for discharge currently but need 1-2 more sessions of skilled PT to accomplish goals. Plan is d/c home at that time. VS, I&O, 24H, [place] Vital Signs/I&O Vital Signs Date Time Temp Pulse Resp B/P (MAP) Pulse Ox O2 Delivery O2 Flow Rate FiO2 01/07/20 14:00 97.6 86 19 109/56 (73) 95 Nasal Cannula 2.0 I&O- Last 24 Hours up to 6 AM 01/07/20 06:00 Intake Total 720 ml Output Total 0 ml Balance 720 ml Laboratory Data 24H LABS Laboratory Tests 2 01/06/20 20:53: Bedside Glucose (Misc Panel) 292H 01/07/20 05:35: Nucleated Red Blood Cells % (auto) 0.0, Anion Gap 6L, Glomerular Filtration Rate > 60.0, Calcium Level 8.8, Total Bilirubin 0.5, Aspartate Amino Transf (AST/SGOT) 9, Alanine Aminotransferase (ALT/SGPT) 15, Alkaline Phosphatase 66, Total Protein 5.5L, Albumin 2.8L, Albumin/Globulin Ratio 1.0L 01/07/20 12:20: Bedside Glucose (Misc Panel) 290H 01/07/20 17:12: Bedside Glucose (Misc Panel) 340H CBC/BMP Laboratory Tests 01/07/20 05:35 Microbiology Microbiology 01/05/20 Blood Culture - Preliminary, Resulted No Growth after 48 hours. All Specime... 01/05/20 Respiratory Virus Panel (PCR) ([facility]) - Final, Complete 01/05/20 Blood Culture - Preliminary, Resulted No Growth after 48 hours. All Specime... Current Medications Current Medications Medications (Trade) Dose Ordered Sig/Nidia Route PRN Reason Start Time Stop Time Status Last Admin Dose Admin Acetaminophen (Tylenol Tab) 650 mg Q4H PRN PO PAIN OR FEVER 01/05/20 14:30 Albuterol/ Ipratropium (Combivent Respimat 100-20mcg) 1 puff QIDP PRN INH SOB/WHEEZING 01/05/20 15:15 Aspirin (Ecotrin) 81 mg QPM@1800 PO 01/05/20 18:00 01/06/20 17:50 Carvedilol (COReg) 6.25 mg BID PO 01/05/20 21:00 01/07/20 08:17 Cefepime HCl 2 gm/ Dextrose 50 ml @ 100 mls/hr Q12H IV 01/05/20 22:00 01/07/20 10:13 Dextrose (Dextrose 50%) 25 ml ASDIRECTED PRN IV SEE LABEL COMMENTS 01/05/20 15:15 Diltiazem HCl (Cardizem Cd) 180 mg DAILY PO 01/06/20 09:00 01/07/20 08:18 Docusate Sodium (Colace) 100 mg QPM@1800 PO 01/05/20 18:00 01/06/20 17:50 Enalapril Maleate (Vasotec) 20 mg DAILY PO 01/06/20 09:00 01/07/20 08:16 Ferrous Gluconate (Fergon) 324 mg DAILY PO 01/06/20 09:00 01/07/20 08:16 Furosemide (Lasix) 40 mg DAILY PO 01/06/20 09:00 01/07/20 08:16 Glucagon (Glucagon) 1 mg ASDIRECTED PRN SC SEE LABEL COMMENTS 01/05/20 15:15 Glucose (Glucose) 16 GM ASDIRECTED PRN PO SEE LABEL COMMENTS 01/05/20 15:15 Home Med (Med Rec Complete!) ASDIRECTED XX 01/05/20 14:30 01/05/20 14:25 DC Insulin Human Lispro (HumaLOG INSULIN) SEE PROTOCOL TABLE AC SC 01/05/20 17:30 01/07/20 13:24 Insulin Human Lispro (HumaLOG INSULIN) SEE PROTOCOL TABLE QHS SC 01/05/20 21:00 01/06/20 21:02 Levalbuterol HCl (Xopenex Neb) 1.25 mg Q2HP PRN NEB SOB/WHEEZING 01/05/20 15:30 Levalbuterol HCl (Xopenex Neb) 1.25 mg RQ6H NEB 01/05/20 20:00 01/07/20 14:27 Levofloxacin 750 mg/IV Miscellaneous Supplies 150 ml @ 100 mls/hr Q48H IV 01/05/20 18:00 01/05/20 18:03 Methylprednisolone (SOLUmedrol) 60 mg Q12H IV 01/06/20 18:00 01/07/20 05:38 Omeprazole (PriLOSEC) 40 mg DAILY PO 01/06/20 09:00 01/07/20 08:15 Pravastatin Sodium (Pravachol) 40 mg QPM@1800 PO 01/05/20 18:00 01/06/20 17:50 Allergies Coded Allergies: No Known Drug Allergies (Verified Allergy, Unknown, 12/04/19) Alma Pathak MD Jan 07, 2020 17:35
[2020-01-07] MEDS ORDERED: FUROSEMIDE 20 MG TAB PO ONE (17:45)
[2020-01-07 22:00] VITALS: BP 119/66
[2020-01-08] MEDS: LEVALBUTEROL 1.25 MG/0.5 ML CONCENTRATE NEB NEB SCH ×3 (02:00→15:44)
[2020-01-08 06:00] VITALS: BP 135/78
[2020-01-08 06:21] LABS: HEMATOCRIT 32.3 % (36.0-47.0); HEMOGLOBIN 9.2 g/dl (12.0-15.5); MEAN CORPUSCULAR HEMOGLOBIN 25.1 pg (27.0-33.0); MEAN CORPUSCULAR HGB CONC 28.5 g/dl (32.0-36.5); MEAN CORPUSCULAR VOLUME 88.3 fl (80.0-96.0); PLATELET COUNT, AUTOMATED 347 10^3/uL (150-450); RED BLOOD COUNT 3.66 10^6/uL (4.00-5.40); WHITE BLOOD COUNT 10.8 10^3/uL (4.0-10.0)
[2020-01-08 06:50] LABS: ALBUMIN 2.7 GM/DL (3.2-5.2); ALT/SGPT 15 U/L (12-78); BILIRUBIN,TOTAL 0.4 MG/DL (0.2-1.0); BLOOD UREA NITROGEN 30 MG/DL (7-18); CARBON DIOXIDE LEVEL 33 MEQ/L (21-32); CHLORIDE LEVEL 103 MEQ/L (98-107); CREATININE FOR GFR 0.89 MG/DL (0.55-1.30); GLOMERULAR FILTRATION RATE > 60.0 (>32); GLUCOSE, FASTING 304 MG/DL (70-100); NT-PRO BNP 2441 PG/ML (<450); POTASSIUM SERUM 4.3 MEQ/L (3.5-5.1); SODIUM LEVEL 142 MEQ/L (136-145); TOTAL PROTEIN 5.5 GM/DL (6.4-8.2)
[2020-01-08] MEDS: predniSONE 20 MG TAB PO SCH (08:41)
[2020-01-08] MEDS: FUROSEMIDE 20 MG TAB PO SCH (08:41)
[2020-01-08] MEDS: OMEPRAZOLE 20 MG CAP PO SCH (08:41)
[2020-01-08] MEDS: FERROUS GLUCONATE 324 MG TAB PO SCH (08:41)
[2020-01-08] MEDS: CARVedilol 6.25 MG TAB PO SCH ×2 (08:42→20:23)
[2020-01-08] MEDS: diltiaZEM **CD** 180 MG CAP PO SCH (08:42)
[2020-01-08] MEDS: ENALAPRIL MALEATE 10 MG TAB PO SCH (08:43)
[2020-01-08] MEDS: HumaLOG INSULIN (NovoLOG) PER UNIT SC SCH ×4 (08:44→20:23)
[2020-01-08] MEDS ORDERED: LEVEMIR (INSULIN DETEMIR) 1 UNITS/0.01ML SC SCH (09:00)
[2020-01-08 14:00] VITALS: BP 120/65
--- NOTE | 2020-01-08 16:05 | IPNPDOC ---
Date Seen The patient was seen on 01/08/20. Progress Note SUBJECTIVE: Still slightly tachycardic, BP stable. WBC slightly incr but may be steroid induced leukocytosis. Still mild wheezing but overall breathing improved with steroids. She denies chest pain, n/v/d, fevers or chills. OBJECTIVE: PHYSICAL EXAMINATION: VS: Please see below CONSTITUTIONAL: At times still appears SOB with speaking but not in acute distress, sitting up at bedside chair, AAO x 3 EYES: PERRLA, EOM intact HENT, MOUTH: Normocephalic, atraumatic, moist mucous membranes, poor dentition NECK: SUPPLE, no JVD, no lymphadenopathy, no carotid bruit CV: tachycardic, irregularly irregular rhythm, S1S2 normal, no murmurs/rubs/gallops RESPIRATORY: exp wheezing , no rales/rhonchi GI: obese abdomen, BS positive in 4 quadrants, soft, nontender, nondistended, no rebound or guarding, no organomegaly : Deferred MUSCULOSKELETAL: Normal ROM for patient. lateral deviation of both hands with some swelling, not warm to touch or tender to touch. No cyanosis, clubbing, joint deformity, +2 pitting extremity edema of all extremities INTEGUMENTARY: Multiple bruises on bilateral lower ext, healing small skin tear on left post forearm. Wound to anterior left lower ext. NEUROLOGIC: Cranial Nerves II-XII are intact, no focal deficits PSYCHIATRIC: Mood and affect are normal LABORATORY DATA: Please see below MICROBIOLOGY BCx pending x 2 sets: NG thus far IMAGING: CXR: Mild patchy consolidation in the left lung base. Echocardiogram 11/2019: Normal sinus rhythm without intraventricular conduction disturbance. M-mode and two-dimensional echocardiography was performed with pulsed, continuous wave, color flow, and tissue Doppler studies. Normal left ventricular size and wall thickness with septal wall motion abnormality and flattening related to right ventricular pressure overload. Preserved global resting left ventricular (LV) systolic function. Mildly dilated left atrium with grade 2 left ventricular (LV) diastolic dysfunction with abbreviated early mitral deceleration time, but current estimated mean left atrial pressure upper limits of normal. Prominently dilated right heart chambers with right ventricular free wall hypokinesis and Doppler evidence of severe pulmonary hypertension. Prominently dilated inferior vena cava (IVC) with absent respiratory collapse inkeeping with a significantly elevated central venous pressure/right heart failure. Normal aortic dimensions. Severe calcific aortic stenosis with trace insufficiency (low mean gradient is related to reduce forward stroke volume related to mitral insufficiency and severe pulmonary hypertension). Moderate degenerative changes of the mitral valvular apparatus without inflow tract obstruction and moderate insufficiency. Normal appearing tricuspid valve with severe tricuspid insufficiency. No apparent intracardiac mass or pericardial effusion. Although the patient does have severe aortic stenosis, her chief determinate of her life expediency is her severe pulmonary hypertension and right heart failure. Her prognosis is guarded measured in months rather than years. ASSESSMENT: 89-year-old female with past medical history of diastolic HF, atrial fibrillation, HTN, HLD, history of breast cancer, history of colon cancer admitted for healthcare associated pneumonia, acute on chronic diastolic CHF exacerbation. PLAN: Health-care associated PNA, resolved sepsis -WBC slightly elevated but on high dose steroids, HR intermittently incr -CXR above -Micro above, unable to provide sputum cx, f/u daily labs -Supplemental O2 at home amount today -C/w levofloxacin (Day 4/7), prednisone 60 mg PO daily, levalbuterol ATC and PRN Acute on chronic diastolic CHF with exacerbation -Neg fluid balance -Last echo above, preserved EF at 60% -BNP at 2967--> 2400, +2 pitting edema in b/l lower ext to hips and upper ext- what she says is her baseline. -Received extra dose of lasix -C/w home medications of BB, CCB, ACEi, daily lasix + another extra 20 mg lasix today -Monitor I&O, daily wt Chronic atrial fibrillation, RVR resolved. -HR <110 -C/w CCB, BB, treatment for sepsis/HCAP above -Can add additional meds if needed -Monitor on tele closely DM type II -BS >300 on one reading today, likely worsened by steroids -Increased detemir 15 U QAM -ISS, consistent carb diet, FS AC/HS HTN -Stable -C/w home meds HLD -C/w statin Hx of breast cancer s/p left mastectomy -F/u with PCP GERD -PPI DVT px -teds, SCD. AC CI due to hx of GI bleed DISPOSITION: Admitted under inpatient status. PT/OT: Not safe for discharge currently but need 1-2 more sessions of skilled PT to accomplish goals. Plan is d/c home possibly after weekend. . VS, I&O, 24H, [place] Vital Signs/I&O Vital Signs Date Time Temp Pulse Resp B/P (MAP) Pulse Ox O2 Delivery O2 Flow Rate FiO2 01/08/20 14:00 96.7 93 18 120/65 (83) 95 Nasal Cannula 2.0 I&O- Last 24 Hours up to 6 AM 01/08/20 06:00 Intake Total 1220 ml Output Total 1250 ml Balance -30 ml Laboratory Data 24H LABS Laboratory Tests 2 01/07/20 17:12: Bedside Glucose (Misc Panel) 340H 01/07/20 20:17: Bedside Glucose (Misc Panel) 333H 01/08/20 06:05: Nucleated Red Blood Cells % (auto) 0.0, Anion Gap 6L, Glomerular Filtration Rate > 60.0, Calcium Level 9.0, Total Bilirubin 0.4, Aspartate Amino Transf (AST/SGOT) 5L, Alanine Aminotransferase (ALT/SGPT) 15, Alkaline Phosphatase 60, [id number]-Type Natriuretic Peptide 2441H, Total Protein 5.5L, Albumin 2.7L, Albumin/Globulin Ratio 1.0L 01/08/20 11:51: Bedside Glucose (Misc Panel) 333H CBC/BMP Laboratory Tests 01/08/20 06:05 Microbiology Microbiology 01/05/20 Blood Culture - Preliminary, Resulted No Growth after 48 hours. All Specime... 01/05/20 Respiratory Virus Panel (PCR) ([facility]ISHA) - Final, Complete 01/05/20 Blood Culture - Preliminary, Resulted No Growth after 72 hours. All specime... Current Medications Current Medications Medications (Trade) Dose Ordered Sig/Nidia Route PRN Reason Start Time Stop Time Status Last Admin Dose Admin Acetaminophen (Tylenol Tab) 650 mg Q4H PRN PO PAIN OR FEVER 01/05/20 14:30 Albuterol/ Ipratropium (Combivent Respimat 100-20mcg) 1 puff QIDP PRN INH SOB/WHEEZING 01/05/20 15:15 Aspirin (Ecotrin) 81 mg QPM@1800 PO 01/05/20 18:00 01/07/20 17:28 Carvedilol (COReg) 6.25 mg BID PO 01/05/20 21:00 01/08/20 08:42 Cefepime HCl 2 gm/ Dextrose 50 ml @ 100 mls/hr Q12H IV 01/05/20 22:00 01/07/20 17:29 DC 01/07/20 10:13 Dextrose (Dextrose 50%) 25 ml ASDIRECTED PRN IV SEE LABEL COMMENTS 01/05/20 15:15 Diltiazem HCl (Cardizem Cd) 180 mg DAILY PO 01/06/20 09:00 01/08/20 08:42 Docusate Sodium (Colace) 100 mg QPM@1800 PO 01/05/20 18:00 01/07/20 17:28 Enalapril Maleate (Vasotec) 20 mg DAILY PO 01/06/20 09:00 01/08/20 08:43 Ferrous Gluconate (Fergon) 324 mg DAILY PO 01/06/20 09:00 01/08/20 08:41 Furosemide (Lasix) 40 mg DAILY PO 01/06/20 09:00 01/08/20 08:41 Glucagon (Glucagon) 1 mg ASDIRECTED PRN SC SEE LABEL COMMENTS 01/05/20 15:15 Glucose (Glucose) 16 GM ASDIRECTED PRN PO SEE LABEL COMMENTS 01/05/20 15:15 Home Med (Med Rec Complete!) ASDIRECTED XX 01/05/20 14:30 01/05/20 14:25 DC Insulin Detemir (Levemir Insulin) 10 units QAM SC 01/08/20 09:00 01/08/20 08:58 DC 01/08/20 08:42 Insulin Detemir (Levemir Insulin) 15 units QAM SC 01/09/20 09:00 Insulin Human Lispro (HumaLOG INSULIN) SEE PROTOCOL TABLE AC SC 01/05/20 17:30 01/08/20 13:09 Insulin Human Lispro (HumaLOG INSULIN) SEE PROTOCOL TABLE QHS SC 01/05/20 21:00 01/07/20 20:24 Levalbuterol HCl (Xopenex Neb) 1.25 mg Q2HP PRN NEB SOB/WHEEZING 01/05/20 15:30 Levalbuterol HCl (Xopenex Neb) 1.25 mg RQ6H NEB 01/05/20 20:00 01/08/20 08:27 Levofloxacin (Levaquin) 750 mg Q2D@1800 PO 01/09/20 18:00 Levofloxacin 750 mg/IV Miscellaneous Supplies 150 ml @ 100 mls/hr Q48H IV 01/05/20 18:00 01/07/20 17:29 DC 01/07/20 17:27 Methylprednisolone (SOLUmedrol) 60 mg Q12H IV 01/06/20 18:00 01/07/20 17:30 DC 01/07/20 17:27 Omeprazole (PriLOSEC) 40 mg DAILY PO 01/06/20 09:00 01/08/20 08:41 Pravastatin Sodium (Pravachol) 40 mg QPM@1800 PO 01/05/20 18:00 01/07/20 17:28 Prednisone (Deltasone) 60 mg DAILY PO 01/08/20 09:00 01/08/20 08:41 Allergies Coded Allergies: No Known Drug Allergies (Verified Allergy, Unknown, 12/04/19) Alma Pathak MD Jan 08, 2020 16:05
[2020-01-08] MEDS ORDERED: FUROSEMIDE 20 MG TAB PO ONE (16:30)
[2020-01-08] MEDS: ASPIRIN 81 MG ENTERIC TAB PO SCH (17:39)
[2020-01-08] MEDS: PRAVASTATIN 20 MG TAB PO SCH (17:39)
[2020-01-08] MEDS: DOCUSATE SODIUM 100 MG CAP PO SCH (17:40)
[2020-01-08] MEDS: COMBIVENT RESPIMAT 100-20MCG INHALER 4GM INH SCH (19:55)
[2020-01-08 20:15] VITALS: BP 133/73
[2020-01-09 06:00] VITALS: BP 142/80
[2020-01-09 07:08] LABS: ALBUMIN 2.7 GM/DL (3.2-5.2); BILIRUBIN,TOTAL 0.3 MG/DL (0.2-1.0); CALCIUM LEVEL 8.7 MG/DL (8.8-10.2); CREATININE FOR GFR 1.01 MG/DL (0.55-1.30); GLOMERULAR FILTRATION RATE 55.1 (>32); POTASSIUM SERUM 3.6 MEQ/L (3.5-5.1); TOTAL PROTEIN 5.2 GM/DL (6.4-8.2)
[2020-01-09] MEDS: COMBIVENT RESPIMAT 100-20MCG INHALER 4GM INH SCH (08:44)
[2020-01-09] MEDS ORDERED: PRED20TA PO (08:52)
[2020-01-09] MEDS ORDERED: LEVO750T13 PO (08:52)
[2020-01-09] MEDS ORDERED: LEVEMIR (INSULIN DETEMIR) 1 UNITS/0.01ML SC SCH (09:00)
[2020-01-09] MEDS: OMEPRAZOLE 20 MG CAP PO SCH (09:17)
[2020-01-09 09:18] VITALS: BP 138/79
[2020-01-09] MEDS: ENALAPRIL MALEATE 10 MG TAB PO SCH (09:18)
[2020-01-09] MEDS: FERROUS GLUCONATE 324 MG TAB PO SCH (09:19)
[2020-01-09] MEDS: predniSONE 20 MG TAB PO SCH (09:19)
[2020-01-09] MEDS: CARVedilol 6.25 MG TAB PO SCH (09:19)
[2020-01-09] MEDS: FUROSEMIDE 20 MG TAB PO SCH (09:19)
[2020-01-09] MEDS: HumaLOG INSULIN (NovoLOG) PER UNIT SC SCH (09:20)
[2020-01-09] MEDS: diltiaZEM **CD** 180 MG CAP PO SCH (09:20)
--- NOTE | 2020-01-09 12:22 | DS.PDOC ---
Discharge Summary General Date of Admission Jan 05, 2020 at 15:32 Date of Discharge 01/09/20 Attending Physician: Alma Pathak MD Discharge Summary HISTORY OF PRESENT ILLNESS: The patient is an 89-year-old female with past medical history of diastolic HF, atrial fibrillation, HTN, HLD, history of breast cancer, history of colon cancer who presented to [facility] ER with chief complaint if increased SOB. Patient states that beginning last evening she had increased shortness of breath which kept her up during the night. She states that she's had increased lightheadedness and lower extremity weakness during this time as well her shortness of breath is improved when sitting up but worsened with activity. She denies cough, chest pain, fever, chills, nausea, vomiting, abdominal pain. In the emergency room the patient's vital signs showed she was 9192 percent on room air, she was placed on 2 L nasal cannula which brought her oxygen saturation to 96%. Her heart rate was found to be atrial fibrillation (a known arrhythmia to her) 089311 bpm. Respiratory rate was 1624, blood pressure stable. Chest x-ray showed new left lower lobe infiltrate, concerning for healthcare associate pneumonia with a recent admission in late Novemberearly December. Lactic acid was within normal limits, WBC 11.2, BNP 2967, increased from prior BNP of 1670. Troponin negative. She was given 60 mg IV lasix in ER. Blood sugar elevated at 224. UA negative. She was admitted for healthcare associated pneumonia, acute on chronic diastolic CHF exacerbation, atrial fibrillation with RVR . HOSPITAL COURSE: Health-care associated PNA was treated with PO levofloxacin, levoalbuterol. Sepsis resolved. She remained on her home amount of O2. She was started on IV methylprednisolone due to incr wheezing with feelings of sob early in admission but improved over several days. We had old Echo on file showing preserved EF 60%. BNP at 2967--> 2400, +2 pitting edema in b/l lower ext to hips and upper ext-what she says is her baseline. She received several extra doses of diuretics. Atrial fib with RVR resolved with resolution of sepsis. BS were elevated >300 ;however, this was likely 2/2 to sepsis, steroids. On 01/08/20, I was made aware the patient was exposed to a healthcare worker who tested positive for COVID 19 during her hospital stay. We checked her both on admission and again on 01/08/20 for COVID 19, both tests were negative. She was much improved by 01/09/20 and decision was made to discharge. She is to c/w PO abx until completion. If she should have any signs or symptoms of COVID 19 including fevers, chills, shortness of breath, nausea, vomiting or rash develop, she is advised to please let a medical professional know at once. It is also recommended that she quarantine for 14 days after discharge. PAST MEDICAL HISTORY: 1. History of diastolic congestive heart failure 2. HLD 3. HTN 4. History of colon cancer s/p resection 5. History of left breast cancer 6. GERD 7. DM2 8. Osteoarthritis 9. COPD? 10. Atrial Fibrillation 11. Hx of GI bleed 2/2 to xarelto PAST SURGICAL HISTORY: 1. Colon resection 2. Cholecystectomy 3. Mastectomy (left) 4. Skin cancer removal SOCIAL HISTORY: Former smoker of 1-2 PPW for 50 years, quit several years ago. Denies alcohol use and drug use. Lives with son Htiesh bear. She is a [employer]. FAMILY HISTORY: Mother: CVA, age in 70's Father: CVA, age in 70's ALLERGIES: Please see below. DISCHARGE MEDICATIONS: Please see below. PHYSICAL EXAMINATION: VS: Please see below CONSTITUTIONAL: nad, sitting up at bedside chair, AAO x 3 EYES: PERRLA, EOM intact HENT, MOUTH: Normocephalic, atraumatic, moist mucous membranes, poor dentition NECK: SUPPLE, no JVD, no lymphadenopathy, no carotid bruit CV: irregularly irregular rhythm, S1S2 normal, no murmurs/rubs/gallops RESPIRATORY: no exp wheezing , no rales/rhonchi GI: obese abdomen, BS positive in 4 quadrants, soft, nontender, nondistended, no rebound or guarding, no organomegaly : Deferred MUSCULOSKELETAL: Normal ROM for patient. lateral deviation of both hands with some swelling, not warm to touch or tender to touch. No cyanosis, clubbing, joint deformity, +1 pitting extremity edema of all extremities INTEGUMENTARY: Multiple bruises on bilateral lower ext, healed small skin tear on left post forearm. Wound to anterior left lower ext, clean and nonsuppurative . NEUROLOGIC: Cranial Nerves II-XII are intact, no focal deficits PSYCHIATRIC: Mood and affect are normal LABORATORY DATA: Please see below MICROBIOLOGY BCx pending x 2 sets: NG thus far Patient unable to provide sputum cx COVID test x 2: neg IMAGING: CXR: Mild patchy consolidation in the left lung base. Echocardiogram 11/2019: Normal sinus rhythm without intraventricular conduction disturbance. M-mode and two-dimensional echocardiography was performed with pulsed, continuous wave, color flow, and tissue Doppler studies. Normal left ventricular size and wall thickness with septal wall motion abnormality and flattening related to right ventricular pressure overload. Preserved global resting left ventricular (LV) systolic function. Mildly dilated left atrium with grade 2 left ventricular (LV) diastolic dysfunction with abbreviated early mitral deceleration time, but current estimated mean left atrial pressure upper limits of normal. Prominently dilated right heart chambers with right ventricular free wall hypokinesis and Doppler evidence of severe pulmonary hypertension. Prominently dilated inferior vena cava (IVC) with absent respiratory collapse inkeeping with a significantly elevated central venous pressure/right heart fa ilure. Normal aortic dimensions. Severe calcific aortic stenosis with trace insufficiency (low mean gradient is related to reduce forward stroke volume related to mitral insufficiency and severe pulmonary hypertension). Moderate degenerative changes of the mitral valvular apparatus without inflow tract obstruction and moderate insufficiency. Normal appearing tricuspid valve with severe tricuspid insufficiency. No apparent intracardiac mass or pericardial effusion. Although the patient does have severe aortic stenosis, her chief determinate of her life expediency is her severe pulmonary hypertension and right heart failure. Her prognosis is guarded measured in months rather than years. ASSESSMENT: 89-year-old female with past medical history of diastolic HF, atrial fibrillation, HTN, HLD, history of breast cancer, history of colon cancer admitted for healthcare associated pneumonia, acute on chronic diastolic CHF exacerbation. PLAN: Health-care associated PNA, resolved sepsis -WBC slightly elevated but on high dose steroids, HR intermittently incr -CXR above -Micro above, unable to provide sputum cx, f/u daily labs -Supplemental O2 at home amount today -C/w levofloxacin and prednisone taper at discharge, duoneb PRN Acute on chronic diastolic CHF with exacerbation. Improved. -Neg fluid balance -Last echo above, preserved EF at 60% -BNP at 2967--> 2400, +2 pitting edema in b/l lower ext to hips and upper ext- what she says is her baseline. -Received extra doses of lasix this admission -C/w home medications of BB, CCB, ACEi, daily lasix -Monitor I&O, daily wt Chronic atrial fibrillation, RVR resolved. -HR <110 -C/w CCB, BB, treatment for HCAP above COVID 19 exposure -Currently asymptomatic aside from SOB, which patient had on admission -We checked her both on admission and again on 01/08/20 for COVID 19, both tests were negative. -If she should have any signs or symptoms of COVID 19 including fevers, chills, shortness of breath, nausea, vomiting or rash develop, she is advised to please let a medical professional know at once. -It is also recommended that she quarantine for 14 days after discharge. DM type II -BS incr likely worsened by steroids -C/w home medications HTN -Stable -C/w home meds HLD -C/w statin Hx of breast cancer s/p left mastectomy -F/u with PCP GERD -PPI DVT px -teds, SCD. AC CI due to hx of GI bleed DISPOSITION: Discharged home with recommendations mentioned above. F/u with PCP within 1-2 weeks, making sure to note current quarantine. TIME SPENT ON DISCHARGE: Greater than 30 minutes. Vital Signs/I&Os Vital Signs Date Time Temp Pulse Resp B/P (MAP) Pulse Ox O2 Delivery O2 Flow Rate FiO2 01/09/20 09:19 102 01/09/20 09:18 138/79 01/09/20 06:00 97.9 18 96 Nasal Cannula 2.0 I&O- Last 24 Hours up to 6 AM 01/09/20 06:00 Intake Total 870 ml Output Total 975 ml Balance -105 ml Laboratory Data Labs 24H Laboratory Tests 2 01/08/20 16:38: Coronavirus (COVID-19)(PCR) NEGATIVE 01/08/20 16:55: Bedside Glucose (Misc Panel) 240H 01/08/20 20:17: Bedside Glucose (Misc Panel) 191H 01/09/20 05:37: Anion Gap 9, Glomerular Filtration Rate 55.1, Calcium Level 8.7L, Total Bilirubin 0.3, Aspartate Amino Transf (AST/SGOT) 16, Alanine Aminotransferase (A LT/SGPT) 18, Alkaline Phosphatase 60, Total Protein 5.2L, Albumin 2.7L, Albumin/Globulin Ratio 1.1L CBC/BMP Laboratory Tests 01/09/20 05:37 FSBS Laboratory Tests Test 01/08/20 16:55 01/08/20 20:17 Range/Units Bedside Glucose (Misc Panel) 240 191 83-110 MG/DL Microbiology Microbiology 01/05/20 Blood Culture - Preliminary, Resulted No Growth after 72 hours. All specime... 01/05/20 Respiratory Virus Panel (PCR) ([facility]) - Final, Complete 01/05/20 Blood Culture - Preliminary, Resulted No Growth after 72 hours. All specime... Discharge Medications Scheduled Aspirin (Aspirin EC) 81 Mg Tablet.dr, 81 MG PO QPM, (Reported) Carvedilol (Carvedilol) 6.25 Mg Tablet, 6.25 MG PO BID, (Reported) Diltiazem HCl (Diltiazem 24Hr ER) 180 Mg Cap.er.24h, 180 MG PO DAILY, (Reported) Docusate Sodium (Docusate Sodium) 100 Mg Capsule, 100 MG PO QPM, (Reported) Empagliflozin (Jardiance) 10 Mg Tablet, 10 MG PO QPM, (Reported) Enalapril Maleate (Enalapril Maleate) 20 Mg Tablet, 20 MG PO DAILY, (Reported) Ferrous Gluconate (Ferrous Gluconate) 324 Mg Tablet, 324 MG PO DAILY, (Reported) Furosemide (Furosemide) 20 Mg Tablet, 40 MG PO DAILY, (Reported) Levofloxacin (Levofloxacin) 750 Mg Tablet, 750 MG PO Q2D@1800 Take next dose 01/09/20 @ 1800 then Q48 hours after until completion Omeprazole (Omeprazole) 40 Mg Capsule.dr, 40 MG PO DAILY, (Reported) Pravastatin Sodium (Pravastatin Sodium) 40 Mg Tablet, 40 MG PO QPM, (Reported) Prednisone (Prednisone) 20 Mg Tablet, 60 MG PO DAILY Prednisone taper over 7 days: 60 mg PO x 3 days, 40 mg PO x 3 days, 20 mg PO x 1 day Scheduled PRN Ipratropium/Albuterol Sulfate (Combivent Respimat 20-100 Mcg) 4 Gm Mist.inhal, 1 PUFF INH QID PRN for SOB/WHEEZING, (Reported) Allergies Coded Allergies: No Known Drug Allergies (Verified Allergy, Unknown, 12/04/19) Alma Pathak MD Jan 09, 2020 12:22
[2020-01-09] MEDS ORDERED: LevoFLOXacin 750 MG TABLET PO SCH (18:00)
== END 2020-01-09 12:42 | disposition home health service (06) | DRG 871 ==
LOC: M ED 10:50 → EDBD 10:50 → M ED INP 10:51 → ENRESERV 15:29 → OBSVTOIN 15:32 → M MSPAV 15:40
PROVIDERS: ADMIT Internal Medicine; ATTEND Internal Medicine
DX: A41.9 Sepsis, unspecified organism (principal); J18.9 Pneumonia, unspecified organism; I50.33 Acute on chronic diastolic (congestive) heart failure; I11.0 Hypertensive heart disease with heart failure; I48.91 Unspecified atrial fibrillation; E78.5 Hyperlipidemia, unspecified; Z85.3 Personal history of malignant neoplasm of breast; Z85.038 Personal history of other malignant neoplasm of large intestine; Z90.49 Acquired absence of other specified parts of digestive tract; K21.9 Gastro-esophageal reflux disease without esophagitis; E11.9 Type 2 diabetes mellitus without complications; M19.90 Unspecified osteoarthritis, unspecified site; Z90.12 Acquired absence of left breast and nipple; Z85.828 Personal history of other malignant neoplasm of skin; Z87.891 Personal history of nicotine dependence; Z79.82 Long term (current) use of aspirin; Z79.899 Other long term (current) drug therapy; Z20.828 Contact with and (suspected) exposure to other viral communicable diseases; Y95 Nosocomial condition

== ENCOUNTER 2020-04-23 10:11 | Inpatient (IN) | payer MEDICARE, MEDICAID ==
[~2020-04-23] VITALS: Ht 160 cm; Wt 54.4 kg
[~2020-04-23 10:11] MED LIST changes: +ASPI81CH33 PO; +ASPI81TA26 PO; +CARV6.25 PO; +COMBAER6 INH; +CVS50CAP PO; +DOCU100C17 PO; +FERR240T PO; +FERR325T16 PO; +LEVO750T13 PO; +OMEP-221 PO; +PRED20TA PO
[2020-04-23] MEDS ORDERED: CARV6.25 PO ×2 (10:33→12:02)
[2020-04-23] MEDS ORDERED: JARD1TAB3 PO (10:33)
[2020-04-23] MEDS ORDERED: TORS20TA2 PO ×2 (10:33→12:02)
[2020-04-23] MEDS ORDERED: OMEP-218 PO (10:33)
--- NOTE | 2020-04-23 11:04 | REP ---
INDICATION: Altered Mental Status. COMPARISON: 01/05/2020. TECHNIQUE: SINGLE PORTABLE AP VIEW OF THE CHEST WAS PERFORMED. FINDINGS: The heart is at the upper limits of normal in size. The mediastinal silhouette is unchanged with calcification of the thoracic aorta. Multiple metallic clips overlie the left hemithorax and axillary region diffuse chronic interstitial opacities throughout both lungs appear stable with no evidence of acute infiltrate. IMPRESSION: NO ACUTE PULMONARY DISEASE.Stable chronic findings as above. <Electronically signed by Erick Riojas > 04/23/20 1100
[2020-04-23 11:05] LABS: BASO % 0.3 % (0.0-1.0); EOS # 0.1 10^3/uL (0.0-0.5); EOS % 0.3 % (0.0-3.0); HEMATOCRIT 43.7 % (36.0-47.0); HEMOGLOBIN 12.8 g/dl (12.0-15.5); LYMPH # 0.7 10^3/uL (1.5-5.0); LYMPH % 4.3 % (24.0-44.0); MEAN CORPUSCULAR HEMOGLOBIN 27.5 pg (27.0-33.0); MEAN CORPUSCULAR HGB CONC 29.3 g/dl (32.0-36.5); MEAN CORPUSCULAR VOLUME 93.8 fl (80.0-96.0); MONO # 0.8 10^3/uL (0.0-0.8); MONO % 5.3 % (0.0-5.0); NEUTROPHILS # 13.6 10^3/uL (1.5-8.5); NEUTROPHILS % 89.1 % (36.0-66.0); PLATELET COUNT, AUTOMATED 391 10^3/uL (150-450); RED BLOOD COUNT 4.66 10^6/uL (4.00-5.40); WHITE BLOOD COUNT 15.2 10^3/uL (4.0-10.0)
[2020-04-23 11:15] LABS: ABG BASE EXCESS 16.9 (-2.0-2.0); ABG HCO3 42.7 MEQ/L (22.0-26.0); ABG O2 SATURATION 97.1 % (95.0-99.0); ABG PARTIAL PRESSURE CO2 55.6 mmHg (35.0-45.0); ABG STANDARD HCO3 40.9 MEQ/L (22.0-26.0); ABG TOTAL CO2 44.4 MEQ/L (23.0-31.0); ABG pH (ARTERIAL) 7.503 UNITS (7.350-7.450)
[2020-04-23 11:41] LABS: ACETAMINOPHEN LEVEL < 2.0 UG/ML (10.0-30.0); ALBUMIN 2.8 GM/DL (3.2-5.2); ALT/SGPT 16 U/L (12-78); BILIRUBIN,DIRECT 0.1 MG/DL (0.0-0.2); BILIRUBIN,TOTAL 0.7 MG/DL (0.2-1.0); BLOOD UREA NITROGEN 45 MG/DL (7-18); CALCIUM LEVEL 9.6 MG/DL (8.8-10.2); CARBON DIOXIDE LEVEL 44 MEQ/L (21-32); CHLORIDE LEVEL 84 MEQ/L (98-107); CK-MB VALUE MASS 1.2 NG/ML (<3.6); CPK CREATINE PHOSPHOKINASE 70 U/L (26-192); CREATININE FOR GFR 1.08 MG/DL (0.55-1.30); ETHYL ALCOHOL (ETHANOL) < 0.003 % (0.000-0.010); GLUCOSE, FASTING 351 MG/DL (70-100); MB/CK RELATIVE INDEX 1.71 (< OR =4); POTASSIUM SERUM 3.2 MEQ/L (3.5-5.1); SALICYLATE LEVEL < 1.7 MG/DL (5.0-30.0); SODIUM LEVEL 136 MEQ/L (136-145); TOTAL PROTEIN 6.7 GM/DL (6.4-8.2); TROPONIN I < 0.02 NG/ML (< 0.10)
[2020-04-23] MEDS ORDERED: GLIP5TAB20 PO (11:41)
[2020-04-23] MEDS ORDERED: METO25TA PO (11:41)
[2020-04-23 11:58] LABS: RSV AMPLIFICATION NEGATIVE (NEGATIVE)
[2020-04-23 12:59] LABS: AMPHETAMINES LEVEL URINE NEGATIVE (NEGATIVE); BARBITURATES URINE NEGATIVE (NEGATIVE); BENZODIAZEPINES URINE NEGATIVE (NEGATIVE); CANNABINOIDS URINE NEGATIVE (NEGATIVE); COCAINE METABOLITE URINE NEGATIVE (NEGATIVE); METHADONE URINE NEGATIVE (NEGATIVE); OPIATES URINE NEGATIVE (NEGATIVE); PHENCYCLIDINE URINE NEGATIVE (NEGATIVE)
--- NOTE | 2020-04-23 12:59 | REP ---
INDICATION: altered mental status. COMPARISON: None. TECHNIQUE: CT BRAIN PERFORMED IN THE AXIAL PLANE. CORONAL RECONSTRUCTION IMAGES ARE PERFORMED. FINDINGS: There is mild atrophy. There is no midline shift or mass effect. There are mild patchy hypodensities in the periventricular white matter bilaterally compatible with chronic small vessel ischemic changes. There is no acute intracranial hemorrhage or extra-axial fluid collection. Vascular calcifications are seen in the region of the carotid siphons. The visualized mastoid air cells and paranasal sinuses appear clear. IMPRESSION: No acute intracranial hemorrhage, midline shift or mass effect. Chronic atrophy and small vessel ischemic changes. <Electronically signed by Erick Riojas > 04/23/20 1208
[2020-04-23] MEDS ORDERED: NS 500 ML IV ONE (13:30)
[2020-04-23] MEDS ORDERED: GLUCOSE 4GM CHEW TABLET PO PRN (13:45)
[2020-04-23] MEDS ORDERED: DEXTROSE 50% 50 ML SYRINGE IV PRN (13:45)
[2020-04-23] MEDS ORDERED: GLUCAGON INJ 1MG VIAL SC PRN (13:45)
[2020-04-23] MEDS ORDERED: COMBIVENT RESPIMAT 100-20MCG INHALER 4GM INH PRN (13:45)
--- NOTE | 2020-04-23 13:55 | HPEPDOC ---
General Date of Admission Apr 23, 2020 at 13:39 Date of Service: Apr 23, 2020 Chief Complaint The patient is a 89-year-old female admitted with a reason for visit of AMS. Source: Patient Exam Limitations: No limitations Timing/Duration: 24 hours Severity: Mild, Moderate History of Present Illness Patient is an 89-year-old female with past medical history of diastolic HF, atrial fibrillation, HTN, HLD, history of breast cancer, history of colon cancer who presented to [facility] ER with altered mental status. According to her daughter patient was slightly confused in the morning, she was not oriented, however altered mental status completely resolved in a few minutes and during my interview patient was alert, awake and oriented. Also patient complains of generalized weakness. Recently, PCP increased the dose of diuretics and after that patient started having generalized weakness. In ER patient was found to have leukocytosis of 15, tachycardia of 105. UA compatible with urinary tract infection. Patient has frequent urination. CT head negative for any acute bleeding or stroke Home Medications Scheduled Aspirin (Aspirin EC) 81 Mg Tablet.dr, 81 MG PO DAILY, (Reported) Carvedilol (Carvedilol) 6.25 Mg Tablet, 12.5 MG PO DAILY, (Reported) Carvedilol (Carvedilol) 6.25 Mg Tablet, 6.25 MG PO QPM, (Reported) Diltiazem HCl (Diltiazem 24Hr ER) 180 Mg Cap.er.24h, 180 MG PO DAILY, (Reported) Empagliflozin (Jardiance) 25 Mg Tablet, 25 MG PO DAILY, (Reported) Enalapril Maleate (Enalapril Maleate) 20 Mg Tablet, 20 MG PO DAILY, (Reported) Ferrous Gluconate (Ferrous Gluconate) 324 Mg Tablet, 324 MG PO DAILY, (Reported) Glipizide (Glipizide ER) 5 Mg Tab.er.24, 5 MG PO BID, (Reported) QAM, 1500 Metolazone (Metolazone) 2.5 Mg Tablet, 2.5 MG PO Q2D, (Reported) Omeprazole (Omeprazole) 20 Mg Capsule.dr, 20 MG PO DAILY, (Reported) Pravastatin Sodium (Pravastatin Sodium) 40 Mg Tablet, 40 MG PO QPM, (Reported) Torsemide (Torsemide) 20 Mg Tablet, 20 MG PO DAILY, (Reported) Scheduled PRN Ipratropium/Albuterol Sulfate (Combivent Respimat 20-100 Mcg) 4 Gm Mist.inhal, 1 PUFF INH QID PRN for SOB/WHEEZING, (Reported) Torsemide (Torsemide) 20 Mg Tablet, 10 MG PO DAILY PRN for FLUID RETENTION, (Reported) TAKE NEEDED AFTER FIRST DOSE IF NO CHANGE IN EDEMA Allergies Coded Allergies: metformin (Verified Allergy, Mild, 04/23/20) Past Medical History Medical History 1. History of diastolic congestive heart failure 2. HLD 3. HTN 4. History of colon cancer s/p resection 5. History of left breast cancer 6. GERD 7. DM2 8. Osteoarthritis 9. COPD? 10. Atrial Fibrillation 11. Hx of GI bleed 2/2 to xarelto Surgical History 1. Colon resection 2. Cholecystectomy 3. Mastectomy (left) 4. Skin cancer removal Social History * Smoker: former Smoker Alcohol: Denies Drugs: denies A-FIB/CHADSVASC A-FIB History Current/History of A-Fib/PAF?: No Current PO Anticoag Therapy: No Review of Systems Constitutional: Reports: Weakness; Denies: Chills Eyes: Denies: Pain ENT: Denies: Head Aches Skin: Denies: Rash Pulmonary: Reports: Dyspnea Cardiovascular: Denies: Chest Pain Gastrointestinal: Denies: Nausea, Vomiting Genitourinary: Reports: Dysuria; Denies: Frequency Hematologic: Denies: Bruising Endocrine: Denies: Polydipsia, Polyphagia Musculoskeletal: Denies: Neck Pain Neurological: Denies: Weakness Psych: Reports: Mood Normal Physical Examination General Exam: Positive: Alert, Cooperative Eye Exam: Positive: PERRLA ENT Exam: Positive: Atraumatic Neck Exam: Positive: Supple; Negative: JVD Chest Exam: Positive: Diminished Heart Exam: Positive: Irregular Rhythm Telemetry: Positive: Atrial fibrillation Abdomen Exam: Positive: Normal bowel sounds Extremity Exam: Negative: Clubbing Skin Exam: Positive: Breakdown (stage II bilateral wounds, stage III decubitus ulcer) Neuro Exam: Positive: Cranial Nerves 3-12 NL Psych Exam: Positive: Mental status NL Vital Signs Vital Signs Date Time Temp Pulse Resp B/P (MAP) Pulse Ox O2 Delivery O2 Flow Rate FiO2 04/23/20 11:11 Nasal Cannula 2.0 04/23/20 11:00 123/58 (79) 04/23/20 10:56 102 100 04/23/20 10:41 20 04/23/20 10:11 97.9 Laboratory Data Labs 24H Laboratory Tests 2 04/23/20 10:32: Bedside Glucose ([facility] Panel) 373H 04/23/20 10:48: Anion Gap 8, Glomerular Filtration Rate 51.0, Calcium Level 9.6, Total Bilirubin 0.7, Direct Bilirubin 0.1, Aspartate Amino Transf (AST/SGOT) 24, Alanine Aminotransferase (ALT/SGPT) 16, Alkaline Phosphatase 95, Total Creatine Kinase 70, Creatine Kinase MB 1.2, Creatine Kinase MB Relative Index 1.71, Troponin I < 0.02, Total Protein 6.7, Albumin 2.8L, Albumin/Globulin Ratio 0.7L, Thyroid Stimulating Hormone (TSH) 5.280H, Salicylates Level < 1.7L, Acetaminophen Level < 2.0L, Ethyl Alcohol Level < 0.003 04/23/20 10:49: Immature Granulocyte % (Auto) 0.7, Neutrophils (%) (Auto) 89.1H, Lymphocytes (%) (Auto) 4.3L, Monocytes (%) (Auto) 5.3H, Eosinophils (%) (Auto) 0.3, Basophils (%) (Auto) 0.3, Neutrophils # (Auto) 13.6H, Lymphocytes # (Auto) 0.7L, Monocytes # (Auto) 0.8, Eosinophils # (Auto) 0.1, Basophils # (Auto) 0.0, Nucleated Red Blood Cells % (auto) 0.0, Lactic Acid Level 1.5, Ammonia < 10 04/23/20 11:03: Coronavirus (COVID-19)(PCR) NEGATIVE, Influenza Type A (RT-PCR) NEGATIVE, Influenza Type B (RT-PCR) NEGATIVE, Respiratory Syncytial Virus (PCR) NEGATIVE 04/23/20 11:08: Blood Gas Bicarbonate Standard 40.9H, Arterial Blood pH 7.503H, Arterial Blood Partial Pressure CO2 55.6H, Arterial Blood Partial Pressure O2 149.0H, Arterial Blood Total CO2 44.4H, Arterial Blood HCO3 42.7H, Arterial Blood Base Excess 16.9H, Arterial Blood Oxygen Saturation 97.1 04/23/20 12:16: Urine Color YELLOW, Urine Appearance HAZY, Urine pH 6.0, Urine Specific [place] 1.007, Urine Protein NEGATIVE, Urine Glucose (UA) 3+H, Urine Ketones NEGATIVE, Urine Blood NEGATIVE, Urine Nitrite NEGATIVE, Urine Bilirubin NEGATIVE, Urine Urobilinogen 0.2, Urine Leukocyte Esterase 1+H, Urine WBC (Auto) 4H, Urine RBC (Auto) 5H, Urine Hyaline Casts (Auto) 0, Urine Bacteria (Auto) 1+H, Urine Squamous Epithelial Cells 0, Urine Mucus (Auto) SMALL, Urine Sperm (Auto) , Urine Opiates Screen NEGATIVE, Urine Methadone Screen NEGATIVE, Urine Barbiturates Screen NEGATIVE, Urine Phencyclidine Screen NEGATIVE, Urine Amphetamines Screen NEGATIVE, Urine Benzodiazepines Screen NEGATIVE, Urine Cocai ne Metabolite Screen NEGATIVE, Urine Cannabinoids Screen NEGATIVE CBC/BMP Laboratory Tests 04/23/20 10:48 04/23/20 10:49 Microbiology Microbiology 04/23/20 Urine Culture, Received Pending 04/23/20 Blood Culture, Received Pending Assessment/Plan Patient is an 89-year-old female with past medical history of diastolic HF, atrial fibrillation, HTN, HLD, history of breast cancer, history of colon cancer who presented to [facility] ER with altered mental status. According to her daughter patient was slightly confused in the morning, she was not oriented, however altered mental status completely resolved in a few minutes and during my interview patient was alert, awake and oriented. Also patient complains of g eneralized weakness. Recently, PCP increased the dose of diuretics and after that patient started having generalized weakness. In ER patient was found to have leukocytosis of 15, tachycardia of 105. UA compatible with urinary tract infection. Patient has frequent urination. CT head negative for any acute bleeding or stroke Problems (1) Altered mental status Status: Acute Problem Text: Metabolic encephalopathy Resolved Secondary to UTI Ceftriaxone IV (2) CHF (congestive heart failure) Status: Chronic Problem Text: Patient looks dry Recently diuresis was intensified Diuretics on hold cardiac diet I's and O's (3) Decubitus ulcer Status: Acute Problem Text: Appreciate/agree with wound care consult (4) Atrial fibrillation Status: Chronic Problem Text: Patient had GI bleed in December 2019, anticoagulation was stopped I restarted anticoagulation with xarelto (5) Hypertension Status: Chronic Problem Text: Continue home meds (6) Hyperlipidemia Status: Chronic Problem Text: Continue statin (7) Physical deconditioning Status: Chronic Problem Text: PT/OT (8) Diabetes mellitus Status: Chronic Problem Text: Detemir twice a day Insulin sliding scale Diabetes diet (9) UTI (urinary tract infection) Status: Acute Problem Text: See above Plan / VTE VTE Prophylaxis Ordered?: Yes DELTA SARABIA DO Apr 23, 2020 13:55
[2020-04-23 14:36] LABS: NT-PRO BNP 3258 PG/ML (<450)
[2020-04-23 16:10] VITALS: BP 123/67
[2020-04-23] MEDS: cefTRIAXone SOD 2 GM in D5W MINI-BAG PLUS 50 ML IV SCH (16:36)
--- NOTE | 2020-04-23 17:06 | ECGEPIP ---
[facility] - ED Test Date: 2020-04-23 Pat Name: OSKAR BABCOCK Department: Room: - Gender: Female Medication Technician: miguel : [id number] Requested By: Rosendo Gonzales Order Number: [id number] Reading MD: Rosendo Gonzales Measurements Intervals [place] Rate: 102 P: MD: 0 QRS: 82 QRSD: 94 T: -87 QT: 360 QTc: 471 Interpretive Statements ATRIAL FIBRILLATION WITH RAPID VENTRICULAR RESPONSE SEPTAL MYOCARDIAL INFARCTION, PROBABLY OLD MODERATE T-WAVE ABNORMALITY, CONSIDER ANTEROLATERAL ISCHEMIA MODERATE T-WAVE ABNORMALITY, CONSIDER INFERIOR ISCHEMIA CW 01/05/[address] T WAVE CHANGES - ISCHEMIA VS NONSPECIFIC Electronically Signed on 04-23-2020 17:06:46 EST by Rosendo Gonzales
[2020-04-23] MEDS: HumaLOG INSULIN (NovoLOG) PER UNIT SC SCH ×2 (17:47→21:05)
[2020-04-23] MEDS: RIVAROXABAN 15 MG TAB (XARELTO) PO SCH (17:47)
[2020-04-23] MEDS: CARVedilol 6.25 MG TAB PO SCH (17:48)
[2020-04-23] MEDS: PRAVASTATIN 20 MG TAB PO SCH (21:03)
[2020-04-23] MEDS: ACETAMINOPHEN TAB 650MG DOSE (2X325MG) PO PRN (21:04)
[2020-04-23] MEDS: LEVEMIR (INSULIN DETEMIR) 1 UNITS/0.01ML SC SCH (21:05)
[2020-04-23 22:00] VITALS: BP_SYST 86; BP_SYST 90; BP_DIAS 42; BP_DIAS 50
[2020-04-24 06:00] VITALS: BP 106/52
[2020-04-24 08:12] LABS: MEAN CORPUSCULAR HEMOGLOBIN 27.3 pg (27.0-33.0); MEAN CORPUSCULAR HGB CONC 29.5 g/dl (32.0-36.5); MEAN CORPUSCULAR VOLUME 92.4 fl (80.0-96.0); PLATELET COUNT, AUTOMATED 473 10^3/uL (150-450); RED BLOOD COUNT 4.76 10^6/uL (4.00-5.40); WHITE BLOOD COUNT 15.6 10^3/uL (4.0-10.0)
[2020-04-24] MEDS: NYSTATIN 100,000 UNITS/GM TOPICAL PWD 15 GM TOP SCH ×2 (09:00→20:44)
[2020-04-24] MEDS: diltiaZEM **CD** 180 MG CAP PO SCH (09:00)
[2020-04-24] MEDS: CARVedilol 6.25 MG TAB PO SCH ×2 (09:00→17:22)
[2020-04-24] MEDS: ENALAPRIL MALEATE 10 MG TAB PO SCH (09:00)
[2020-04-24] MEDS: LEVEMIR (INSULIN DETEMIR) 1 UNITS/0.01ML SC SCH ×2 (09:00→20:44)
[2020-04-24 09:33] LABS: ALBUMIN 2.7 GM/DL (3.2-5.2); BILIRUBIN,TOTAL 0.4 MG/DL (0.2-1.0); CALCIUM LEVEL 9.5 MG/DL (8.8-10.2); CREATININE FOR GFR 1.01 MG/DL (0.55-1.30); GLOMERULAR FILTRATION RATE 55.1 (>32); MAGNESIUM LEVEL 2.2 MG/DL (1.8-2.4); TOTAL PROTEIN 6.5 GM/DL (6.4-8.2)
[2020-04-24] MEDS: HumaLOG INSULIN (NovoLOG) PER UNIT SC SCH ×4 (09:40→22:20)
[2020-04-24] MEDS: ASPIRIN 81 MG ENTERIC TAB PO SCH (09:56)
[2020-04-24] MEDS: OMEPRAZOLE 20 MG CAP PO SCH (09:56)
[2020-04-24] MEDS: FERROUS GLUCONATE 324 MG TAB PO SCH (09:56)
[2020-04-24] MEDS ORDERED: POTASSIUM CHLORIDE 10 MEQ SR TABLET PO ONE ×3 (10:00→20:30)
[2020-04-24] MEDS ORDERED: KCL 10MEQ/100ML SWI (KRUN) 10 MEQ in IV 1 EA IV ONE ×3 (10:00→20:30)
[2020-04-24] MEDS: TORSEMIDE 20 MG TAB PO SCH (10:29)
[2020-04-24 14:00] VITALS: BP 114/69
[2020-04-24 14:35] LABS: CALCIUM LEVEL 9.3 MG/DL (8.8-10.2); CREATININE FOR GFR 1.26 MG/DL (0.55-1.30); GLOMERULAR FILTRATION RATE 42.7 (>32); POTASSIUM SERUM 2.8 MEQ/L (3.5-5.1)
[2020-04-24] MEDS ORDERED: MAG SULF 1GM/100ML (MAG RUN) 1 GM in IV 1 EA IV ONE (15:00)
--- NOTE | 2020-04-24 15:04 | IPNPDOC ---
Text Note Date of Service The patient was seen on 04/24/20. NOTE Subjective: Patient alert, oriented and awake in the morning. She states she is doing better today. She has a good appetite Objective: GENERAL APPEARANCE: NAD HEENT: no scleral icterus, no JVD, EOMI CARDIOVASCULAR: S1S2 LUNGS: CTA ABDOMEN: soft & not tender w palpitation MUSCULOSKELETAL: no cyanosis, no swelling INTEGUMENT: no generalized pallor, patient has stage IV decubitus ulcer NEUROLOGICAL: cranial nerve function from 2-12 intact intact, follows commands, speech not dysarthric Assessment/Plan Patient is an 89-year-old female with past medical history of diastolic HF, atrial fibrillation, HTN, HLD, history of breast cancer, history of colon cancer who presented to [facility] ER with altered mental status. According to her daughter patient was slightly confused in the morning, she was not oriented, however altered mental status completely resolved in a few minutes and during my interview patient was alert, awake and oriented. Also patient complains of generalized weakness. Recently, PCP increased the dose of diuretics and after that patient started having generalized weakness. In ER patient was found to have leukocytosis of 15, tachycardia of 105. UA compatible with urinary tract infection. Patient has frequent urination. CT head negative for any acute bleeding or stroke Problems (1) Altered mental status/Metabolic encephalopathy Resolved Secondary to UTI Continue with Ceftriaxone IV (2) diastolic CHF (congestive heart failure) Continue gentle diuresis cardiac diet I's and O's (3) Decubitus ulcer Appreciate/agree with wound care consult (4) Atrial fibrillation Patient had GI bleed in December 2019, anticoagulation was stopped I restarted anticoagulation with xarelto (5) Hypertension Continue home meds (6) Hyperlipidemia Continue statin (7) Physical deconditioning PT/OT (8) Diabetes mellitus Detemir twice a day Insulin sliding scale Diabetes diet (9) UTI (urinary tract infection) See above Hypokalemia Replaced VS,Fishbone, I+O VS, Fishbone, I+O Laboratory Tests 04/24/20 07:47 04/24/20 13:06 Vital Signs Date Time Temp Pulse Resp B/P (MAP) Pulse Ox O2 Delivery O2 Flow Rate FiO2 04/24/20 09:00 2.0 04/24/20 09:00 78 106/52 04/24/20 06:00 97.4 17 94 Nasal Cannula I&O- Last 24 Hours up to 6 AM 04/24/20 06:00 Intake Total 1550 ml Output Total 0 ml Balance 1550 ml DELTA SARABIA DO Apr 24, 2020 15:03
[2020-04-24] MEDS: cefTRIAXone SOD 2 GM in D5W MINI-BAG PLUS 50 ML IV SCH (15:07)
[2020-04-24] MEDS: RIVAROXABAN 15 MG TAB (XARELTO) PO SCH (17:19)
[2020-04-24] MEDS: FLUCONAZOLE 50MG TABLET PO SCH (17:24)
[2020-04-24 19:48] LABS: CREATININE FOR GFR 1.31 MG/DL (0.55-1.30); GLOMERULAR FILTRATION RATE 40.8 (>32); POTASSIUM SERUM 2.6 MEQ/L (3.5-5.1)
[2020-04-24] MEDS: ACETAMINOPHEN TAB 650MG DOSE (2X325MG) PO PRN (20:43)
[2020-04-24] MEDS: PRAVASTATIN 20 MG TAB PO SCH (20:44)
[2020-04-24] MEDS: CLOTRIMAZOLE 1% TOPICAL CREAM 30GM TOP SCH (20:45)
--- NOTE | 2020-04-24 20:56 | CR ---
CONSULTATION DATE: 04/24/2020 Advanced wound care consult via Telemedicine. CONSULT REQUESTED BY: Luis Alberto Chapa DO REASON FOR CONSULTATION: Regarding multiple pressure injuries. HISTORY OF PRESENT ILLNESS: This is an 89-year-old female, poorly controlled diabetic, admitted for decline in health and altered mental status. The patient has multiple wounds which were visualized, namely a coccyx wound measuring 4.8 cm x 4.5 cm with black eschar covering the wound. This is an unstageable pressure injury. The patient has a right heel ulcer measuring 4.0 cm x 3.4 cm and a left heel ulcer measuring 3.6 cm x 2.6 cm, both of which show black eschar covering and are unstageable. Additionally, the patient has a wound cluster involving the left calf of small punctate wounds with minimal drainage. The patient is a DNR/DNI. TREATMENT SUGGESTIONS: Diabetic control is mandatory. The nurses tell me that she is eating satisfactorily. The wounds involving the coccyx and right and left heels should be covered with a protective foam dressing and heel float boots are indicated for both right and left heels for all floating purposes. The anterior ankles for both right and left lower extremities should be protected with ABD pads as the heel float boots may potentially cause local trauma. Calf wound cluster should be protected again with a foam dressing. Appropriate treatment in the near future. if the patient is either discharged and/or transferred to assisted living facility would be an appointment at our wound center for wound debridement. An air mattress and change of position q.2 hours are also indicated. Care in taking the patient in and out of bed is mandatory as shearing force will exacerbate all pressure injuries. There was no indication for antibiotic therapy at this time. If in the clinician's opinion the wound begins to significantly deteriorate indicating a fluctuant eschar for any of the wounds, drainage or erythema involving the periwound, local debridement removing the eschar is indicated. This can be done at bedside with local anesthesia. Please feel free to reconsult if there are any questions regarding this patient's care. HUBER
[2020-04-24] MEDS ORDERED: LEVEMIR (INSULIN DETEMIR) 1 UNITS/0.01ML SC SCH ×2 (21:00)
[2020-04-24 21:23] LABS: MAGNESIUM LEVEL 2.4 MG/DL (1.8-2.4); PHOSPHORUS LEVEL 3.2 MG/DL (2.5-4.9)
[2020-04-24 22:00] VITALS: BP 108/67
[2020-04-25] VITALS: BP 106/64
[2020-04-25 02:11] LABS: CALCIUM LEVEL 9.2 MG/DL (8.8-10.2); CREATININE FOR GFR 1.22 MG/DL (0.55-1.30); GLOMERULAR FILTRATION RATE 44.3 (>32); POTASSIUM SERUM 3.1 MEQ/L (3.5-5.1)
[2020-04-25] MEDS ORDERED: KCL 10MEQ/100ML SWI (KRUN) 10 MEQ in IV 1 EA IV ONE (02:30)
[2020-04-25] MEDS ORDERED: POTASSIUM CHLORIDE 10 MEQ SR TABLET PO ONE (02:30)
[2020-04-25 06:41] LABS: HEMOGLOBIN A1c 11.3 %
[2020-04-25 06:48] LABS: CALCIUM LEVEL 9.1 MG/DL (8.8-10.2); CREATININE FOR GFR 1.04 MG/DL (0.55-1.30); GLOMERULAR FILTRATION RATE 53.2 (>32); POTASSIUM SERUM 4.2 MEQ/L (3.5-5.1)
--- NOTE | 2020-04-25 08:03 | ECGEPIP ---
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
[2020-04-25] MEDS: LEVEMIR (INSULIN DETEMIR) 1 UNITS/0.01ML SC SCH ×2 (08:46→20:20)
[2020-04-25] MEDS: HumaLOG INSULIN (NovoLOG) PER UNIT SC SCH ×4 (08:46→20:20)
[2020-04-25] MEDS: TORSEMIDE 20 MG TAB PO SCH (08:47)
[2020-04-25] MEDS: ASPIRIN 81 MG ENTERIC TAB PO SCH (08:48)
[2020-04-25] MEDS: OMEPRAZOLE 20 MG CAP PO SCH (08:48)
[2020-04-25] MEDS: FERROUS GLUCONATE 324 MG TAB PO SCH (08:48)
[2020-04-25] MEDS: FLUCONAZOLE 50MG TABLET PO SCH (08:49)
[2020-04-25] MEDS: ENALAPRIL MALEATE 10 MG TAB PO SCH (08:49)
[2020-04-25] MEDS: CARVedilol 6.25 MG TAB PO SCH ×2 (08:49→17:57)
[2020-04-25] MEDS: diltiaZEM **CD** 180 MG CAP PO SCH (08:50)
[2020-04-25] MEDS: CLOTRIMAZOLE 1% TOPICAL CREAM 30GM TOP SCH ×2 (08:51→20:23)
[2020-04-25] MEDS: NYSTATIN 100,000 UNITS/GM TOPICAL PWD 15 GM TOP SCH ×2 (08:51→20:22)
[2020-04-25] MEDS ORDERED: LIDOCAINE W/EPINEPHRINE 1% 20ML VIAL SC ONE (12:30)
[2020-04-25 14:00] VITALS: BP 133/74
[2020-04-25 14:14] LABS: CALCIUM LEVEL 9.4 MG/DL (8.8-10.2); CREATININE FOR GFR 0.95 MG/DL (0.55-1.30); GLOMERULAR FILTRATION RATE 59.1 (>32); POTASSIUM SERUM 3.9 MEQ/L (3.5-5.1)
[2020-04-25] MEDS: cefTRIAXone SOD 2 GM in D5W MINI-BAG PLUS 50 ML IV SCH (16:23)
[2020-04-25] MEDS: RIVAROXABAN 15 MG TAB (XARELTO) PO SCH (17:54)
--- NOTE | 2020-04-25 18:30 | IPNPDOC ---
Text Note Date of Service The patient was seen on 04/25/20. NOTE Subjective: Patient was seen and examined this morning at bedside. Patient denies any dysuria feeling better more alert or oriented answering my questions appropriately. Feels stronger. Was sitting on chair at bedside. Appetite is better. Objective: Constitutional: Awake and alert, in no apparent distress ENT: Sclera are clear. Mucosa is moist. Respiratory: Lungs CTA bilaterally. No respiratory distress. No use of accessory muscles. Cardiovascular: Irregular heart rate without murmur Gastrointestinal: Abdomen is soft, non distended, non tender, BS present. Musculoskeletal: No peripheral edema Neurologic: No focal neurological deficit. Mental Status: A&O x3, normal affect Skin: Patient has unstagable heel and coccyx decubitus ulcer Assessment/plan: Patient is an 89-year-old female with past medical history of diastolic HF, atrial fibrillation, HTN, HLD, history of breast cancer, history of colon cancer who presented to [facility] ER with altered mental status. According to her daughter patient was slightly confused in the morning, she was not oriented, however altered mental status completely resolved in a few minutes and during my interview patient was alert, awake and oriented. Also patient complains of generalized weakness. Recently, PCP increased the dose of diuretics and after that patient started having generalized weakness. In ER patient was found to have leukocytosis of 15, tachycardia of 105. UA compatible with urinary tract infection. Patient has frequent urination. CT head negative for any acute bleeding or stroke # Altered mental status/Metabolic encephalopathy: Suspected to be secondary to UTI. This has now resolved with treatment of the UTI. # UTI: Currently on IV ceftriaxone. Urine culture pending. # Congestive heart failure with preserved ejection fraction: Continue gentle diuresis. Cardiac diet. Monitor ins and outs. I increased her dose of beta ynes carvedilol. # Atrial fibrillation: Patient had a GI bleed in December 2019 at that time anticoagulation was stopped. Patient was restarted on Xarelto however should she have her get a GI bleed again she should probably be off of anticoagulation for life. # Hypertension: Continue home medication. I decreased the dose of her ROMANA inhibitor. # Decubitus ulcer: Wound care consult # Hyperlipidemia: Continue statin # Physical deconditioning: PT/OT # DM: ISS. Frequent Accu-Cheks. Hypoglycemic precautions. Levemir twice a day # Hypokalemia: Resolved replaced continue to monitor BMP A Yousef Hospitalist Haley CAN, I+O Haley CAN I+O Laboratory Tests 04/24/20 18:55 04/25/20 00:43 04/25/20 05:50 04/25/20 12:54 Vital Signs Date Time Temp Pulse Resp B/P (MAP) Pulse Ox O2 Delivery O2 Flow Rate FiO2 04/25/20 17:57 109 129/75 04/25/20 14:00 97.8 20 89 Room Air 04/25/20 09:16 2.0 I&O- Last 24 Hours up to 6 AM 04/25/20 06:00 Intake Total 1390 ml Balance 1390 ml MARTIN LUNDBERG MD Apr 25, 2020 18:30
[2020-04-25] MEDS: PRAVASTATIN 20 MG TAB PO SCH (20:21)
[2020-04-25] MEDS: ACETAMINOPHEN TAB 650MG DOSE (2X325MG) PO PRN (20:21)
[2020-04-25 21:00] VITALS: BP 123/74
[2020-04-25] MEDS ORDERED: CARVedilol 6.25 MG TAB PO ONE (21:00)
[2020-04-25 22:00] VITALS: BP 104/63
[2020-04-26 05:48] LABS: HEMATOCRIT 38.4 % (36.0-47.0); MEAN CORPUSCULAR HEMOGLOBIN 27.5 pg (27.0-33.0); MEAN CORPUSCULAR HGB CONC 28.4 g/dl (32.0-36.5); PLATELET COUNT, AUTOMATED 323 10^3/uL (150-450); RED BLOOD COUNT 3.96 10^6/uL (4.00-5.40); WHITE BLOOD COUNT 10.2 10^3/uL (4.0-10.0)
[2020-04-26 06:00] VITALS: BP 117/81
[2020-04-26 06:02] LABS: HEMOGLOBIN 10.9 g/dl (12.0-15.5)
[2020-04-26 06:07] LABS: BLOOD UREA NITROGEN 49 MG/DL (7-18); CALCIUM LEVEL 8.5 MG/DL (8.8-10.2); CARBON DIOXIDE LEVEL 44 MEQ/L (21-32); CHLORIDE LEVEL 93 MEQ/L (98-107); GLOMERULAR FILTRATION RATE > 60.0 (>32); GLUCOSE, FASTING 95 MG/DL (70-100); POTASSIUM SERUM 3.5 MEQ/L (3.5-5.1); SODIUM LEVEL 141 MEQ/L (136-145)
[2020-04-26] MEDS: HumaLOG INSULIN (NovoLOG) PER UNIT SC SCH ×4 (07:25→20:54)
[2020-04-26] MEDS ORDERED: LEVO250T12 PO (08:05)
[2020-04-26 08:22] VITALS: BP 117/80
[2020-04-26] MEDS: LEVEMIR (INSULIN DETEMIR) 1 UNITS/0.01ML SC SCH ×2 (08:28→20:55)
[2020-04-26] MEDS: OMEPRAZOLE 20 MG CAP PO SCH (08:28)
[2020-04-26] MEDS: FERROUS GLUCONATE 324 MG TAB PO SCH (08:28)
[2020-04-26] MEDS: FLUCONAZOLE 50MG TABLET PO SCH (08:28)
[2020-04-26] MEDS: TORSEMIDE 20 MG TAB PO SCH (08:28)
[2020-04-26] MEDS: ASPIRIN 81 MG ENTERIC TAB PO SCH (08:28)
[2020-04-26] MEDS: CARVedilol 12.5 MG TAB PO SCH ×2 (08:31→20:53)
[2020-04-26] MEDS: diltiaZEM **CD** 180 MG CAP PO SCH (08:31)
[2020-04-26] MEDS: ENALAPRIL MALEATE 5 MG TAB PO SCH (08:32)
[2020-04-26] MEDS: NYSTATIN 100,000 UNITS/GM TOPICAL PWD 15 GM TOP SCH ×2 (08:36→20:56)
[2020-04-26] MEDS: CLOTRIMAZOLE 1% TOPICAL CREAM 30GM TOP SCH ×2 (08:36→20:55)
--- NOTE | 2020-04-26 11:42 | IPNPDOC ---
Text Note Date of Service The patient was seen on 04/26/20. NOTE Subjective: Patient was seen and examined this morning at bedside. She is more alert and oriented today very appropriately answering my questions appropriately says she feels stronger appetite is better. She was about plan for wound debridement today. There was no acute overnight events Objective: Constitutional: Awake and alert, in no apparent distress ENT: Sclera are clear. Mucosa is moist. Respiratory: Lungs CTA bilaterally. No respiratory distress. No use of access ory muscles. Cardiovascular: Irregular heart rate without murmur Gastrointestinal: Abdomen is soft, non distended, non tender, BS present. Musculoskeletal: No peripheral edema Neurologic: No focal neurological deficit. Mental Status: A&O x3, normal affect Skin: Patient has unstagable heel and coccyx decubitus ulcer Assessment/plan: Patient is an 89-year-old female with past medical history of diastolic HF, atrial fibrillation, HTN, HLD, history of breast cancer, history of colon cancer who presented to [facility] ER with altered mental status. According to her daughter patient was slightly confused in the morning, she was not oriented, however altered mental status completely resolved in a few minutes and during my interview patient was alert, awake and oriented. Also patient complains of generalized weakness. Recently, PCP increased the dose of diuretics and after that patient started having generalized weakness. In ER patient was found to have leukocytosis of 15, tachycardia of 105. UA compatible with urinary tract infection. Patient has frequent urination. CT head negative for any acute bleeding or stroke # Altered mental status/Metabolic encephalopathy: Suspected to be secondary to UTI. This has now resolved with treatment of the UTI. # UTI: Currently on IV ceftriaxone. Urine culture showing raoultella planticola almost vega sensitive. 3 doses of IV ceftriaxone already given patient will be sent home with 3 more doses of 250 of levofloxacin # Congestive heart failure with preserved ejection fraction: Continue gentle diuresis. Cardiac diet. Monitor ins and outs. I increased her dose of beta ynes carvedilol. # Atrial fibrillation: Patient had a GI bleed in December 2019 at that time anticoagulation was stopped. Patient was restarted on Xarelto however should she have her get a GI bleed again she should probably be off of anticoagulation for life. # Hypertension: Continue home medication. I decreased the dose of her ROMANA inhibitor. # reported history of COPD: dependent on 2L home o2. # Decubitus ulcer: Wound care consult. Dr Wilkes to do debridement today. # Hyperlipidemia: Continue statin # Physical deconditioning: PT/OT # DM: ISS. Frequent Accu-Cheks. Hypoglycemic precautions. Levemir twice a day # Hypokalemia: Resolved replaced continue to monitor BMP A Charmaine Hospitalist VSHaley, I+O VS, Haley, I+O Laboratory Tests 04/25/20 12:54 04/26/20 05:26 Vital Signs Date Time Temp Pulse Resp B/P (MAP) Pulse Ox O2 Delivery O2 Flow Rate FiO2 04/26/20 09:45 2.0 04/26/20 09:38 87 04/26/20 08:32 117/80 04/26/20 06:00 97.2 19 98 Nasal Cannula I&O- Last 24 Hours up to 6 AM 04/26/20 06:00 Intake Total 2070 ml Output Total 0 ml Balance 2070 ml MARTIN LUNDBERG MD Apr 26, 2020 11:42
[2020-04-26 14:00] VITALS: BP 117/74
[2020-04-26] MEDS ORDERED: LIDOCAINE W/EPINEPHRINE 1% 20ML VIAL SC STA (16:35)
[2020-04-26] MEDS: LevoFLOXacin 250 MG TABLET PO SCH (17:43)
[2020-04-26] MEDS: PRAVASTATIN 20 MG TAB PO SCH (20:54)
[2020-04-26 22:00] VITALS: BP 114/75
[2020-04-27 06:00] VITALS: BP 120/78
[2020-04-27 07:06] LABS: HEMATOCRIT 36.8 % (36.0-47.0); HEMOGLOBIN 10.7 g/dl (12.0-15.5); MEAN CORPUSCULAR HGB CONC 29.1 g/dl (32.0-36.5); MEAN CORPUSCULAR VOLUME 96.3 fl (80.0-96.0); PLATELET COUNT, AUTOMATED 370 10^3/uL (150-450); RED BLOOD COUNT 3.82 10^6/uL (4.00-5.40); WHITE BLOOD COUNT 12.1 10^3/uL (4.0-10.0)
[2020-04-27 07:28] LABS: BLOOD UREA NITROGEN 45 MG/DL (7-18); CALCIUM LEVEL 8.8 MG/DL (8.8-10.2); CARBON DIOXIDE LEVEL 41 MEQ/L (21-32); CHLORIDE LEVEL 94 MEQ/L (98-107); CREATININE FOR GFR 0.76 MG/DL (0.55-1.30); GLOMERULAR FILTRATION RATE > 60.0 (>32); GLUCOSE, FASTING 155 MG/DL (70-100); POTASSIUM SERUM 3.2 MEQ/L (3.5-5.1); SODIUM LEVEL 140 MEQ/L (136-145)
[2020-04-27] MEDS ORDERED: POTASSIUM CHLORIDE 10 MEQ SR TABLET PO ONE (08:00)
[2020-04-27] MEDS: LEVEMIR (INSULIN DETEMIR) 1 UNITS/0.01ML SC SCH ×2 (08:19→20:27)
[2020-04-27] MEDS: FERROUS GLUCONATE 324 MG TAB PO SCH (08:20)
[2020-04-27] MEDS: HumaLOG INSULIN (NovoLOG) PER UNIT SC SCH ×4 (08:20→20:40)
[2020-04-27] MEDS: ASPIRIN 81 MG ENTERIC TAB PO SCH (08:21)
[2020-04-27] MEDS: diltiaZEM **CD** 180 MG CAP PO SCH (08:21)
[2020-04-27] MEDS: OMEPRAZOLE 20 MG CAP PO SCH (08:21)
[2020-04-27] MEDS: TORSEMIDE 20 MG TAB PO SCH (08:21)
[2020-04-27] MEDS: CARVedilol 12.5 MG TAB PO SCH ×2 (08:22→20:26)
[2020-04-27] MEDS: ENALAPRIL MALEATE 5 MG TAB PO SCH (08:22)
[2020-04-27] MEDS: NYSTATIN 100,000 UNITS/GM TOPICAL PWD 15 GM TOP SCH ×2 (08:23→20:34)
[2020-04-27] MEDS: FLUCONAZOLE 50MG TABLET PO SCH (08:23)
[2020-04-27] MEDS: CLOTRIMAZOLE 1% TOPICAL CREAM 30GM TOP SCH ×2 (08:23→20:28)
[2020-04-27] MEDS: RIVAROXABAN 15 MG TAB (XARELTO) PO SCH ×2 (10:10→16:56)
--- NOTE | 2020-04-27 11:17 | IPNPDOC ---
Text Note Date of Service The patient was seen on 04/27/20. NOTE Subjective: Patient was seen and examined this morning at bedside. She is awake and answering my questions appropriately feels well. Wound debridement was not done I discussed that was Dr. Wilkes who agrees that this can be done with Dr. Maria in his clinic as an outpatient. There was no acute overnight events Objective: Constitutional: Awake and alert, in no apparent distress ENT: Sclera are clear. Mucosa is moist. Respiratory: Lungs CTA bilaterally. No respiratory distress. No use of accessory muscles. Cardiovascular: Irregular heart rate without murmur Gastrointestinal: Abdomen is soft, non distended, non tender, BS present. Musculoskeletal: No peripheral edema Neurologic: No focal neurological deficit. Mental Status: A&O x3, normal affect Skin: Patient has unstagable heel and coccyx decubitus ulcer Assessment/plan: Patient is an 89-year-old female with past medical history of diastolic HF, atrial fibrillation, HTN, HLD, history of breast cancer, history of colon cancer who presented to [facility] ER with altered mental status. This was secondary to urinary tract infection and resolved with the resolution of the infection. Plan is for patient to go home with 24/7 assistance and if this cannot be arranged patient will undergo subacute rehabilitation. Patient switched [facility] status for placement. # Altered mental status/Metabolic encephalopathy: Suspected to be secondary to UTI. This has now resolved with treatment of the UTI. # UTI: Currently on IV ceftriaxone. Urine culture showing raoultella planticola almost vega sensitive. 3 doses of IV ceftriaxone already, with 3 more doses of 250 of levofloxacin # Decubitus ulcer: Wound care consult. Dr Wilkes initially was to do a debridement but this was deferred to be done in the clinic either with Dr. Maria. # Congestive heart failure with preserved ejection fraction: Continue gentle d iuresis. Cardiac diet. Monitor ins and outs. I increased her dose of beta ynes carvedilol. # Atrial fibrillation: Patient had a GI bleed in December 2019 at that time anticoagulation was stopped. Patient was restarted on Xarelto however should she have her get a GI bleed again she should probably be off of anticoagulation for life. # Hypertension: Continue home medication. I decreased the dose of her ROMANA inhibitor. # reported history of COPD: dependent on 2L home o2. # Hyperlipidemia: Continue statin # Physical deconditioning: PT/OT # DM: ISS. Frequent Accu-Cheks. Hypoglycemic precautions. Levemir twice a day # Hypokalemia: Resolved replaced continue to monitor BMP A Charmaine Hospitalist Haley CAN, I+O Haley CAN I+O Laboratory Tests 04/27/20 06:13 Vital Signs Date Time Temp Pulse Resp B/P (MAP) Pulse Ox O2 Delivery O2 Flow Rate FiO2 04/27/20 08:22 113/74 04/27/20 08:22 100 04/27/20 06:00 98.4 18 98 Nasal Cannula 2.0 I&O- Last 24 Hours up to 6 AM 04/27/20 06:00 Intake Total 1570 ml Output Total 0 ml Balance 1570 ml MARTIN LUNDBERG MD Apr 27, 2020 11:17
[2020-04-27 14:29] VITALS: BP 112/75
[2020-04-27] MEDS: LevoFLOXacin 250 MG TABLET PO SCH (16:55)
[2020-04-27] MEDS: PRAVASTATIN 20 MG TAB PO SCH (20:25)
[2020-04-28 05:50] VITALS: BP 120/79
[2020-04-28 06:42] LABS: BLOOD UREA NITROGEN 49 MG/DL (7-18); CALCIUM LEVEL 8.5 MG/DL (8.8-10.2); CARBON DIOXIDE LEVEL 41 MEQ/L (21-32); CHLORIDE LEVEL 99 MEQ/L (98-107); CREATININE FOR GFR 0.72 MG/DL (0.55-1.30); GLOMERULAR FILTRATION RATE > 60.0 (>32); GLUCOSE, FASTING 138 MG/DL (70-100); POTASSIUM SERUM 3.6 MEQ/L (3.5-5.1); SODIUM LEVEL 144 MEQ/L (136-145)
[2020-04-28] MEDS: LEVEMIR (INSULIN DETEMIR) 1 UNITS/0.01ML SC SCH (08:21)
[2020-04-28] MEDS: HumaLOG INSULIN (NovoLOG) PER UNIT SC SCH ×2 (08:21→12:41)
[2020-04-28] MEDS: ASPIRIN 81 MG ENTERIC TAB PO SCH (08:22)
[2020-04-28] MEDS: OMEPRAZOLE 20 MG CAP PO SCH (08:22)
[2020-04-28] MEDS: FERROUS GLUCONATE 324 MG TAB PO SCH (08:22)
[2020-04-28] MEDS: TORSEMIDE 20 MG TAB PO SCH (08:22)
[2020-04-28] MEDS: diltiaZEM **CD** 180 MG CAP PO SCH (08:23)
[2020-04-28] MEDS: CARVedilol 12.5 MG TAB PO SCH (08:23)
[2020-04-28 08:24] VITALS: BP 108/65
[2020-04-28] MEDS: NYSTATIN 100,000 UNITS/GM TOPICAL PWD 15 GM TOP SCH (08:24)
[2020-04-28] MEDS: ENALAPRIL MALEATE 5 MG TAB PO SCH (08:24)
[2020-04-28] MEDS: CLOTRIMAZOLE 1% TOPICAL CREAM 30GM TOP SCH (08:24)
--- NOTE | 2020-04-28 13:04 | DS.PDOC ---
Discharge Summary General Date of Admission Apr 23, 2020 at 13:39 Date of Discharge 04/28/20 Discharge Summary PROCEDURES PERFORMED DURING STAY: [None]. ADMITTING DIAGNOSES: 1. Altered mental status DISCHARGE DIAGNOSES: 1. Metabolic encephalopathy secondary to UTI COMPLICATIONS/CHIEF COMPLAINT: AMS. HISTORY OF PRESENT ILLNESS: From admitting physician H&P: Patient is an 89-year-old female with past medical history of diastolic HF, atrial fibrillation, HTN, HLD, history of breast cancer, history of colon cancer who presented to [facility] ER with altered mental status. According to her daughter patient was slightly confused in the morning, she was not oriented, however altered mental status completely resolved in a few minutes and during my interview patient was alert, awake and oriented. Also patient complains of generalized weakness. Recently, PCP increased the dose of diuretics and after that patient started having generalized weakness. In ER patient was found to have leukocytosis of 15, tachycardia of 105. UA compatible with urinary tract infection. Patient has frequent urination. CT head negative for any acute bleeding or stroke HOSPITAL COURSE: Patient is an 89-year-old female with past medical history of diastolic HF, atrial fibrillation, HTN, HLD, history of breast cancer, history of colon cancer who presented to [facility] ER with altered mental status. This was secondary to urinary tract infection and resolved with the resolution of the infection. Plan is for patient to go home with 24/7 assistance, cleared by PT with home PT. # Altered mental status/Metabolic encephalopathy: Suspected to be secondary to UTI. This has now resolved with treatment of the UTI. # UTI: Currently on IV ceftriaxone. Urine culture showing raoultella planticola almost vega sensitive. 3 doses of IV ceftriaxone already, with 3 more doses of 250 of levofloxacin # Decubitus ulcer: Wound care consult. Dr Wilkes initially was to do a debridement but this was deferred to be done in the clinic either with Dr. Maria. # Congestive heart failure with preserved ejection fraction: Euvolemic. I increased her dose of beta ynes carvedilol. # Atrial fibrillation: Patient had a GI bleed in December 2019 at that time anticoagulation was stopped. Patient was restarted on Xarelto however should she have her get a GI bleed again she should probably be off of anticoagulation for life. # Hypertension: Continue home medication. I decreased the dose of her ROMANA inhibitor. # reported history of COPD: dependent on 2L home o2. # Hyperlipidemia: Continue statin # DM: ISS. Frequent Accu-Cheks. Hypoglycemic precautions. Levemir twice a day # Hypokalemia: Resolved replaced DISCHARGE MEDICATIONS: Please see below. ALLERGIES: Please see below. PHYSICAL EXAMINATION ON DISCHARGE: VITAL SIGNS: Please see below. Constitutional: Awake and alert, in no apparent distress ENT: Sclera are clear. Mucosa is moist. Respiratory: Lungs CTA bilaterally. No respiratory distress. No use of accessory muscles. Cardiovascular: Irregular heart rate without murmur Gastrointestinal: Abdomen is soft, non distended, non tender, BS present. Musculoskeletal: No peripheral edema Neurologic: No focal neurological deficit. Mental Status: A&O x3, normal affect Skin: Patient has unstagable heel and coccyx decubitus ulcer LABORATORY DATA: Please see below. IMAGING: See chart PROGNOSIS: Fair ACTIVITY: [As tolerated]. DIET: Consistent carbohydrate diet DISPOSITION: Home with 07/10 care and home physical therapy DISCHARGE INSTRUCTIONS: Please follow up with your primary care physician within 1 week from discharge. If you do not have one, please follow up with us to schedule an appointment. Please keep all of your follow up appointments. Please call central to book your appointments with hospital specialists. Please take all your medications as prescribed. Please call/come to Clinic or go to the Emergency Department if - Temp >101, intractable Nausea/Vomiting, Diarrhea, Mouth sores, Headaches, Altered mental status, Seizures, sudden onset of swelling, bleeding, shortness of breath or chest pain. ITEMS TO FOLLOWUP ON ON OUTPATIENT: 1. Follow up with your primary care physician within 1 week of discharge 2. Follow-up with wound care Dr. Maria at the next available appointment DISCHARGE CONDITION: [Stable]. TIME SPENT ON DISCHARGE: 40 minutes. Vital Signs/I&Os Vital Signs Date Time Temp Pulse Resp B/P (MAP) Pulse Ox O2 Delivery O2 Flow Rate FiO2 04/28/20 08:24 108/65 04/28/20 08:23 120 04/28/20 05:50 98.1 20 99 Nasal Cannula 2.0 I&O- Last 24 Hours up to 6 AM 04/28/20 06:00 Intake Total 1560 ml Output Total 0 ml Balance 1560 ml Laboratory Data Labs 24H Laboratory Tests 2 04/27/20 16:42: Bedside Glucose (Misc Panel) 205H 04/27/20 20:24: Bedside Glucose (Misc Panel) 298H 04/28/20 05:42: Anion Gap 4L, Glomerular Filtration Rate > 60.0, Calcium Level 8.5L 04/28/20 11:39: Bedside Glucose (Misc Panel) 216H CBC/BMP Laboratory Tests 04/28/20 05:42 FSBS Laboratory Tests Test 04/27/20 16:42 04/27/20 20:24 04/28/20 11:39 Range/Units Bedside Glucose (Misc Panel) 205 298 216 83-110 MG/DL Microbiology Microbiology 04/26/20 Stool Occult Blood (LAKISHA) - Final, Complete 04/23/20 Urine Culture - Final, Complete Raoultella [place]ola 04/23/20 Blood Culture - Preliminary, Resulted No Growth after 72 hours. All specime... 04/23/20 Blood Culture - Final, Complete NO GROWTH AFTER 5 DAYS Discharge Medications Scheduled Aspirin (Aspirin EC) 81 Mg Tablet.dr, 81 MG PO DAILY, (Reported) Carvedilol (Carvedilol) 6.25 Mg Tablet, 12.5 MG PO BID Diltiazem HCl (Diltiazem 24Hr ER) 180 Mg Cap.er.24h, 180 MG PO DAILY, (Reported) Empagliflozin (Jardiance) 25 Mg Tablet, 25 MG PO DAILY, (Reported) Enalapril Maleate (Enalapril Maleate) 5 Mg Tablet, 5 MG PO DAILY Ferrous Gluconate (Ferrous Gluconate) 324 Mg Tablet, 324 MG PO DAILY, (Reported) Glipizide (Glipizide ER) 5 Mg Tab.er.24, 5 MG PO BID, (Reported) QAM, 1500 Metolazone (Metolazone) 2.5 Mg Tablet, 2.5 MG PO Q2D, (Reported) Omeprazole (Omeprazole) 20 Mg Capsule.dr, 20 MG PO DAILY, (Reported) Pravastatin Sodium (Pravastatin Sodium) 40 Mg Tablet, 40 MG PO QPM, (Reported) Rivaroxaban (Xarelto) 15 Mg Tablet, 15 MG PO DAILY@18 Torsemide (Torsemide) 20 Mg Tablet, 20 MG PO DAILY, (Reported) Scheduled PRN Ipratropium/Albuterol Sulfate (Combivent Respimat 20-100 Mcg) 4 Gm Mist.inhal, 1 PUFF INH QID PRN for SOB/WHEEZING, (Reported) Torsemide (Torsemide) 20 Mg Tablet, 10 MG PO DAILY PRN for FLUID RETENTION, (Reported) TAKE NEEDED AFTER FIRST DOSE IF NO CHANGE IN EDEMA Allergies Coded Allergies: metformin (Verified Allergy, Mild, 04/23/20) MARTIN LUNDBERG MD Apr 28, 2020 13:04
[2020-04-28] MEDS ORDERED: ENAL5TA PO (13:07)
[2020-04-28] MEDS ORDERED: XARE15TA PO (13:07)
[2020-04-28] MEDS ORDERED: CARV6.25 PO (13:07)
[2020-04-28] MEDS: LevoFLOXacin 250 MG TABLET PO SCH (14:37)
== END 2020-04-28 15:05 | disposition home health service (06) | DRG 689 ==
LOC: M ED 10:11 → M ED INP 13:39 → M MS5PR 15:50
PROVIDERS: ADMIT Internal Medicine; ATTEND Family Medicine
DX: N39.0 Urinary tract infection, site not specified (principal); G93.41 Metabolic encephalopathy; I50.32 Chronic diastolic (congestive) heart failure; I48.20 Chronic atrial fibrillation, unspecified; I11.0 Hypertensive heart disease with heart failure; E78.5 Hyperlipidemia, unspecified; L89.611 Pressure ulcer of right heel, stage 1; E11.9 Type 2 diabetes mellitus without complications; L89.620 Pressure ulcer of left heel, unstageable; K21.9 Gastro-esophageal reflux disease without esophagitis; L89.150 Pressure ulcer of sacral region, unstageable; J44.9 Chronic obstructive pulmonary disease, unspecified; E87.6 Hypokalemia; R53.1 Weakness; Z66 Do not resuscitate; Z85.3 Personal history of malignant neoplasm of breast; Z85.038 Personal history of other malignant neoplasm of large intestine; Z79.82 Long term (current) use of aspirin; Z79.84 Long term (current) use of oral hypoglycemic drugs; Z79.899 Other long term (current) drug therapy; Z88.8 Allergy status to other drugs, medicaments and biological substances; M19.90 Unspecified osteoarthritis, unspecified site; Z90.49 Acquired absence of other specified parts of digestive tract; Z90.12 Acquired absence of left breast and nipple; Z85.828 Personal history of other malignant neoplasm of skin; Z87.891 Personal history of nicotine dependence; Z20.822 Contact with and (suspected) exposure to COVID-19; Z99.81 Dependence on supplemental oxygen

== ENCOUNTER 2020-05-03 16:12 | Inpatient (IN) | payer MEDICARE, MEDICAID ==
[~2020-05-03] VITALS: Ht 152.4 cm; Wt 49.0 kg
[~2020-05-03 16:12] MED LIST changes: +ENAL5TA PO; +GLIP5TAB20 PO; +JARD1TAB3 PO; +LEVO250T12 PO; +METO25TA PO; +OMEP-218 PO; +TORS20TA2 PO; +XARE15TA PO
[2020-05-03] MEDS ORDERED: NS 500 ML IV ONE (16:30)
[2020-05-03 17:03] LABS: BASO # 0.1 10^3/uL (0.0-0.2); BASO % 0.4 % (0.0-1.0); EOS % 0.1 % (0.0-3.0); HEMATOCRIT 33.6 % (36.0-47.0); HEMOGLOBIN 10.2 g/dl (12.0-15.5); LYMPH # 0.9 10^3/uL (1.5-5.0); MEAN CORPUSCULAR HEMOGLOBIN 28.3 pg (27.0-33.0); MEAN CORPUSCULAR HGB CONC 30.4 g/dl (32.0-36.5); MEAN CORPUSCULAR VOLUME 93.3 fl (80.0-96.0); MONO # 0.7 10^3/uL (0.0-0.8); NEUTROPHILS # 15.6 10^3/uL (1.5-8.5); NEUTROPHILS % 89.5 % (36.0-66.0); PLATELET COUNT, AUTOMATED 467 10^3/uL (150-450); WHITE BLOOD COUNT 17.4 10^3/uL (4.0-10.0)
--- NOTE | 2020-05-03 17:12 | REPVR ---
PROCEDURE INFORMATION: Exam: CT Head Without Contrast Exam date and time: 05/03/2020 4:51 PM Age: 89 years old Clinical indication: Injury or trauma; Fall; Blunt trauma (contusions or hematomas) TECHNIQUE: Imaging protocol: Computed tomography of the head without contrast. Radiation optimization: All CT scans at this facility use at least one of these dose optimization techniques: automated exposure control; mA and/or kV adjustment per patient size (includes targeted exams where dose is matched to clinical indication); or iterative reconstruction. COMPARISON: CT Head without contrast 04/23/2020 12:14 PM FINDINGS: Brain: There is no acute intracranial hemorrhage, cerebral edema, or midline shift. Chronic microvascular ischemic changes are seen in the periventricular white matter. Age-related cerebral and cerebellar volume loss is present. Cerebral ventricles: Mild ex vacuo dilation of the lateral and third ventricles is noted. Bones/joints: Hyperostosis frontalis interna is noted. Paranasal sinuses: There is no acute sinusitis. Mastoid air cells: The mastoid air cells are clear. Orbital cavity: The included orbital structures are unremarkable. Vasculature: Atherosclerotic calcifications are seen involving the cavernous carotid arteries. Soft tissues: Mild right frontal scalp swelling is present. IMPRESSION: 1. No acute intracranial abnormality. 2. Atrophy and chronic deep white matter ischemic changes. Electronically signed by: Slava Rice On 05/03/2020 17:12:47 PM
[2020-05-03 17:19] LABS: INR 0.95; PROTHROMBIN TIME 12.9 SECONDS (12.5-14.3)
--- NOTE | 2020-05-03 17:21 | REPVR ---
PROCEDURE INFORMATION: Exam: CT Cervical Spine Without Contrast Exam date and time: 05/03/2020 4:51 PM Age: 89 years old Clinical indication: Injury or trauma; Fall; Blunt trauma TECHNIQUE: Imaging protocol: Computed tomography images of the cervical spine without contrast. Radiation optimization: All CT scans at this facility use at least one of these dose optimization techniques: automated exposure control; mA and/or kV adjustment per patient size (includes targeted exams where dose is matched to clinical indication); or iterative reconstruction. COMPARISON: No relevant prior studies available. FINDINGS: Bones/joints: Bone mineralization is decreased, suggestive of osteopenia. No acute fracture is identified. Mild levoconvex curvature of the cervical spine is present. Discs/Spinal canal/Neural foramina: Severe degenerative changes of the cervical spine are present. There is no severe spinal canal stenosis. Multilevel neural foraminal narrowing from uncinate spurring and facet arthropathy is noted. Lungs: Mild scarring is present in the lung apices. Vasculature: Extensive vascular calcifications are noted, particularly involving the aortic arch and carotid bifurcations. Soft tissues: Unremarkable. IMPRESSION: 1. No acute abnormality. 2. Chronic findings as discussed above. Electronically signed by: Slava Rice On 05/03/2020 17:21:43 PM
[2020-05-03 17:36] LABS: ALT/SGPT 24 U/L (12-78); BILIRUBIN,DIRECT 0.2 MG/DL (0.0-0.2); BILIRUBIN,TOTAL 0.6 MG/DL (0.2-1.0); BLOOD UREA NITROGEN 54 MG/DL (7-18); CALCIUM LEVEL 9.1 MG/DL (8.8-10.2); CARBON DIOXIDE LEVEL 34 MEQ/L (21-32); CHLORIDE LEVEL 91 MEQ/L (98-107); CK-MB VALUE MASS < 1.0 NG/ML (<3.6); CPK CREATINE PHOSPHOKINASE 47 U/L (26-192); FREE T4 1.07 NG/DL (0.76-1.46); GLOMERULAR FILTRATION RATE 49.9 (>32); GLUCOSE, FASTING 311 MG/DL (70-100); MB/CK RELATIVE INDEX 2.13 (< OR =4); POTASSIUM SERUM 3.5 MEQ/L (3.5-5.1); RSV AMPLIFICATION NEGATIVE (NEGATIVE); SODIUM LEVEL 137 MEQ/L (136-145); TOTAL PROTEIN 6.7 GM/DL (6.4-8.2); TROPONIN I < 0.02 NG/ML (< 0.10)
--- NOTE | 2020-05-03 17:40 | REP ---
INDICATION: trauma. COMPARISON: 04/23/2020, 01/05/2020 TECHNIQUE: AP portable seated chest FINDINGS: Study again shows multiple axillary and chest wall clips on the left as previously seen and stable. Lung hadley are well inflated there is no pleural effusion, infiltrate, atelectasis or mass skin fold projects over the left mid chest. The aorta is calcified at the arch without aneurysm airway intact hilar contours are symmetric. Some chronic interstitial fibrotic changes are again seen and stable. There is some mild prominence of cardiac silhouette or and left atrial enlargement with elevation the mainstem bronchus. IMPRESSION: 1. Mild prominence cardiac silhouette without vascular redistribution, pulmonary edema or definite effusion. 2. Calcified tortuous aorta unchanged. Stable underlying COPD and fibrosis. 3. Chronic stable postsurgical changes with multiple clips axilla and left chest wall. <Electronically signed by Wilmer Perez > 05/03/20 [id number]
[2020-05-03] MEDS ORDERED: CARV12.5 PO (18:11)
[2020-05-03] MEDS ORDERED: ENAL5TA PO (18:11)
[2020-05-03] MEDS ORDERED: XARE15TA PO (18:11)
--- OUTSIDE RECORDS SUMMARY | 2020-05-03 18:57 | CCD ---
Author Author [facility] Organization [facility] Address Unknown Phone Unavailable Care Team Providers Care Utility Porter Name Role Phone Valeria Varam Unavailable PROBLEMS Type Condition ICD9-CM Code KXV46-DV Code Onset Dates Condition S tatus W/U Status Risk SNOMED Code Notes Problem Gastroesophageal reflux disease, esophagitis pre sence not specified K21.9 Active confirmed 928325051 Problem Other cataract of right eye H26.8 Active confirmed 103160848 Problem Essential hypertension I10 Active confirmed 71917289 Problem Type 2 diabetes mellitus wit hout complication, without long-term current use of insulin E11.9 Active confirmed 458831151 Problem Other specified cataract H26.8 Active confirmed 058531544 Problem Unsteadiness on feet R26.81 Active confirmed 77868428 Problem Iron deficiency anemia, unspecified iron deficiency an emia type D50.9 Active confirmed 69596778 Problem History of SCC (squamous cell carcinoma) of skin Z 85.828 Active confirmed 805330778 Problem Arthritis M19.90 Active confirmed 6070410 Problem Dementia without behavioral disturbance, unspeci fied dementia type F03.90 Active confirmed 46612544 Problem Constipation, unspecified constipation type K59.00 Active confirmed 44361346 Problem 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 Active co nfirmed 919684339062 Problem Gastroesophageal reflux disease without esophagitis K21.9 Active confirmed 662073476 Problem Diabetes mellitus type 1, controlled, without complication s E10.9 Active confirmed 451085481 Problem Other chronic pain G89.29 Active confirmed 8 1963375 Problem Squamous cell carcinoma C44.92 Active confirmed 345995357 Problem 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 rhinitis, unspecified trigger J3 0.2 Active confirmed 854666567 Problem Hyperlipidemia, unspecified hyperlipidemia type E7 8.5 Active confirmed 04118056 Problem Panlobular emphysema J43.1 Active confirmed 0493188 Problem Microcytic anemia D50.9 Active confirmed 23 2612443 ALLERGIES Allergen (clinical drug ingredient) Drug/Non Drug Allergy do cumented on EMR Reaction Allergy Type Onset Date Status metformin Metformin HCl([facility] Code:[address]-59) stomach upset Drug A llergy Active ENCOUNTERS from 1930 to 2020-04-27 Encounter Location Date Provider Diagnosis [address] [address] Apr, Valeria Varma IMMUNIZATIONS No Information SOCIAL HISTORY Tobacco Use: Social History Observation Description Date Details (start date - stop date) Never Smoker Sex Assigned At : Social History Observation Description Sex Assigned At Unknown Alcohol Screen Question Answer Notes Did you have a drink containing alcohol in the past year? Ye s Points 1 How often did you have 6 or more drinks on one occasio n in the past year? Never (0 points) How many drinks did you have on a typica l day when you were drinking in the past year? 1 or 2 (0 points) How often did you have a drink containing alcohol in t he past year? Monthly or less (1 point) Tobacco Use/Smoking Question Answer Notes Are you a never smoker REASON FOR REFERRAL No Information VITAL SIGNS No information MEDICATIONS Medication SIG (Take, Route, Frequency, Duration) Notes Start Da te End Date Status Omeprazole 20 MG 1 capsule 30 minutes before morning meal Orally Once a day for 90 day(s) Active Omeprazole 20 MG 1 capsule 30 minutes before morning meal Orally On a day Not-Taking Prevalon Heel Protector - 1 boot each leg daily for 99 days Apr, Active GlipiZIDE ER 5 MG 2 tablet with food Orally Once a day for 90 days Active Pravastatin Sodium 40 MG 1 tablet Orally Active Stool Softener 100 MG 1 capsule as needed Orally Once a day for 30 da y(s) Not-Taking Aspir-81 Active Metolazone 2.5 MG 1 tablet Orally Once a day for 30 day(s) Active Combivent Respimat 20-100 MCG/ACT 1 puff as needed Inhalation every 6 hrs Active Portable oxygen concentrator as directed via nasal can nula at rate of 2-4L/min; Pox <88% on RA with ambulation. Tritrate to effect. Please provide ULI. [place] for 999 days Oct, Active Jardiance 25 MG 1 tablet Orally Once a day for 90 day(s) 0 2 Apr, 2020 Active Enalapril Maleate 20 MG 1 tablet Orally once a day Active Metolazone 2.5 MG Oral every other day Active Medical Compression Stockings - stocking 15-30mmhg each leg jessica y for 99 days Apr, Active Diltiazem HCl ER 180 MG 1 capsule Orally Once a day for 90 day(s) Active Combivent Respimat 20-100 MCG/ACT inhale one puff by m out four times a day Inhalation every 6 hrs for 90 days Not-Taking Furosemide 20 MG 2 tablet in am 1 in afternoon Orally Twice a day Active Ferrous Sulfate 325 (65 Fe) MG 1 tablet Orally TWICE A WEEK Mar, Active Carvedilol 6.25 MG 2 tabs in AM and 1 tab in PM Orally twice per day Active Lasix 20 MG 2 tabs in am and one in am Orally Once a day Active Torsemide 20 MG one tablet in the morning an d half a tablet in the afternoon as needed Orally daily for 30 days Apr, Active Cane - as directed externally prn for 1 dose Active Jardiance 10 MG 1 tablet Orally Once a day for 90 days Active PROCEDURES No Information RESULTS No Results REASON FOR VISIT Chronic Care Management MEDICAL (GENERAL) HISTORY Type Description Date Medical History Hypertension Medical History Heart Murmur (Had echo in 2016) Medical History Skin cancer - squamous cell Medical History Colon cancer Medical History Breast Cancer Medical History High Cholesterol Medical History Afib Medical History diastolic congestive heart failure Medical History hyperlipidemia Medical History DMII with hyperglycemia Medical History GERD with Erosive gastropathy Medical History ARthritis Medical History COPD Medical History CHF Medical History On chronic anticoagulation Medical History Left arm lymphedema (11/2019 US LUE negat darian DVT) Medical History Iron deficiency anemia (with blood trans fusion 11/2019) Medical History Orthostatic Medical History Severe aortic stenosis Medical History Severe pulmonary hypertension Medical History Hiatal Hernia Surgical History Multiple Vein stripping (has been followed by wound care in the past) Surgical History Masectomy - left 1993 Surgical History Colectomy due to tumor removal 2004 Surgical History Ilieostomy with reversal 2004 Surgical History Tonsillectomy & Adenoidectomy Surgical History Skin lesions removed Surgical History Cataract Extraction - left eye 1989 Surgical History Colonoscopy- Dr. Davis 12/2017 Surgical History Endoscopy- Dr. Davis 03/2018 Hospitalization History Pyelonephritis Hospitalization History [facility]- fluid around lungs 10/2019 Goals Section No Information Health Concerns No Information MEDICAL EQUIPMENT No Information MENTAL STATUS No Information FUNCTIONAL STATUS No Information ASSESSMENTS No Information PLAN OF TREATMENT Medication Medication Name Sig Start Date Stop Date Jardiance 25 MG 1 tablet Orally Once a day for 90 day(s) Apr, Torsemide 20 MG one tablet in the morning an d half a tablet in the afternoon as needed Orally daily for 30 days Apr, Prevalon Heel Protector - 1 boot each leg daily for 99 days 2020 Insurance Providers Payer Name Payer Address Payer Phone Insured Name Patient Relati onship to Insured Coverage Start Date Coverage End Date [facility] - [employer] [address] [facility] [address] Francesca Ramirez self [facility] OPTIONS [facility] [address] [facility] [phone] Francesca Ramirez self [employer] - [place] [address] [facility] [id number] Francesca Ramirez self [facility] - MEDICAID ANCILLARY [facility]G [facility] [address] [facility] [id number] Francesca Ramirez self
--- OUTSIDE RECORDS SUMMARY | 2020-05-03 18:57 | CCD ---
Author Author [facility] Organization [facility] Address Unknown Phone Unavailable Care Team Providers Care Business Analyst Sales Operations Name Role Phone Valeria Meyer Unavailable PROBLEMS Type Condition ICD9-CM Code ECI89-OW Code Onset Dates Condition S tatus W/U Status Risk SNOMED Code Notes Problem Gastroesophageal reflux disease, esophagitis pre sence not specified K21.9 Active confirmed 176649103 Problem Other cataract of right eye H26.8 Active confirmed 038317105 Problem Essential hypertension I10 Active confirmed 98487619 Problem Type 2 diabetes mellitus wit hout complication, without long-term current use of insulin E11.9 Active confirmed 650981698 Problem Other specified cataract H26.8 Active confirmed 545228331 Problem Unsteadiness on feet R26.81 Active confirmed 76898673 Problem Iron deficiency anemia, unspecified iron deficiency an emia type D50.9 Active confirmed 61396959 Problem History of SCC (squamous cell carcinoma) of skin Z 85.828 Active confirmed 617345621 Problem Arthritis M19.90 Active confirmed 9503259 Problem Dementia without behavioral disturbance, unspeci fied dementia type F03.90 Active confirmed 45760622 Problem Constipation, unspecified constipation type K59.00 Active confirmed 39876073 Problem 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 Active co nfirmed 074037953601 Problem Gastroesophageal reflux disease without esophagitis K21.9 Active confirmed 338235952 Problem Diabetes mellitus type 1, controlled, without complication s E10.9 Active confirmed 356834563 Problem Other chronic pain G89.29 Active confirmed 8 3486156 Problem Squamous cell carcinoma C44.92 Active confirmed 993246490 Problem 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 rhinitis, unspecified trigger J3 0.2 Active confirmed 119883012 Problem Hyperlipidemia, unspecified hyperlipidemia type E7 8.5 Active confirmed 14323389 Problem Panlobular emphysema J43.1 Active confirmed 1282832 Problem Microcytic anemia D50.9 Active confirmed 23 7395323 ALLERGIES Allergen (clinical drug ingredient) Drug/Non Drug Allergy do cumented on EMR Reaction Allergy Type Onset Date Status metformin Metformin HCl([facility] Code:[address]-43) stomach upset Drug A llergy Active ENCOUNTERS from 1931 to 2020-04-21 Encounter Location Date Provider Diagnosis [address] [address] Apr, Valeria Mitch Edema of both feet R60.0 IMMUNIZATIONS No Information SOCIAL HISTORY Tobacco Use: [...] REASON FOR REFERRAL No Information VITAL SIGNS Height 54.0 in Apr, Temperature 98.2 degrees Fahrenheit Apr, Heart Rate 100 /min Apr, Respiratory Rate 22 /min Apr, Oximetry 96 % Apr, Blood pressure systolic 118 mmHg Apr, Blood pressure diastolic 64 mmHg Apr, MEDICATIONS Medication SIG (Take, Route, Frequency, Duration) [...] Information RESULTS No Results REASON FOR VISIT Edema/ sores on heels of feet MEDICAL (GENERAL) HISTORY Type Description Date Medical [...] Davis 03/2018 Hospitalization History Pyelonephritis Hospitalization History [facility]- fluid around lungs 10/2019 Goals Section No Information Health Concerns No Information MEDICAL EQUIPMENT No Information MENTAL STATUS No Information FUNCTIONAL STATUS No Information ASSESSMENTS Encounter Date Diagnosis Assessment Notes Treatment Notes Treatm ent Clinical Notes Apr, Edema of both feet (ICD-10 - R60.0) Pt with bilateral edema that has improved since last seen by previous PCP. Daughter states that she has bilateral ulcers noted to ankles that have been improving. She has two stage 2 on her right ankle and one stage 2 on her left. One on the left ankle is approx 1 inch. The smaller of the two ulcers on right ankle is approx 0.5 inches and the second is approx 1.5 inches. She has been following up with Dr. Chino regularly for her heart failure and saw him a week ago. She had a telehealth appointment with PCP yesterday. She is currently taking two 20 mg furosemide tablets in the morning and one in the afternoon. Pt was also evaluated by Valeria Varma during this appointment. Will order labs to update kidney function. Based on kidney function will determine if we can increase dose of Lasix. Reviewed signs and symptoms of when to be seen in the ER. Reviewed when medically necessary to refer to wound care for ulcers. Encouraged pt to keep her feet warm and dry. Encouraged pt to keep her feet clean and continue to use compression stockings. Will continue to monitor and have the pt follow up in 4 weeks. Apr, Other All questions and concerns addressed, patient understanding and agreeable to plan. Patient encouraged to follow up at the clinic for any additional or new questions or concerns. Claudette Dumont, scribing the following service on behalf of DARRION Jones on 04/18/2020. Time spent approximatley 15 minutes with the patient. PLAN OF TREATMENT Medication Medication Name Sig Start Date Stop Date Jardiance 25 MG 1 tablet Orally Once a day for 90 day(s) Apr, Torsemide 20 MG one tablet in the morning an d half a tablet in the afternoon as needed Orally daily for 30 days Apr, Prevalon Heel Protector - 1 boot each leg daily for 99 days 2020 Treatment Notes Assessment Notes Clinical Notes Edema of both feet Pt with bilateral edema that has improved since last seen by previous PCP. Daughter states that she has bilateral ulcers noted to ankles that have been improving. She has two stage 2 on her right ankle and one stage 2 on her left. One on the left ankle is approx 1 inch. The smaller of the two ulcers on right ankle is approx 0.5 inches and the second is approx 1.5 inches. She has been following up with Dr. Chino regularly for her heart failure and saw him a week ago. She had a telehealth appointment with PCP yesterday. She is currently taking two 20 mg furosemide tablets in the morning and one in the afternoon. Pt was also evaluated by Valeria Varma during this appointment. Will order labs to update kidney function. Based on kidney function will determine if we can increase dose of Lasix. Reviewed signs and symptoms of when to be seen in the ER. Reviewed when medically necessary to refer to wound care for ulcers. Encouraged pt to keep her feet warm and dry. Encouraged pt to keep her feet clean and continue to use compression stockings. Will continue to monitor and have the pt follow up in 4 weeks. Treatment Notes Test Name Order Date [facility] 2020-04-18 Next Appt Details 4 Weeks Reason:f/u edema/ulcers Follow Up:4 Weeksf/u edema/ulcers Insurance Providers Payer Name Payer Address Payer Phone Insured Name Patient Relati onship to Insured Coverage Start Date Coverage End Date [facility] - MEDICAID ANCILLARY [facility] APG [facility] [address] [facility] [phone] Francesca Ramirez [facility]IC[facility] [place] [address] [facility] [address] Francesca Ramirez [facility] MEDICARE DIVISION [address] [facility] [address] Francesca Ramirez [facility] OPTIONS [facility] [address] [facility] [phone] Francesca Ramirez
--- OUTSIDE RECORDS SUMMARY | 2020-05-03 18:57 | CCD ---
Author Author [facility] Organization [facility] Address Unknown Phone Unavailable Care Team Providers Care Steward [employer]etr[employer] Name Role Phone Valeria Varma Unavailable PROBLEMS Type Condition ICD9-CM Code ENM47-DG Code Onset Dates Condition S tatus W/U Status Risk SNOMED Code Notes Problem Gastroesophageal reflux disease, esophagitis pre sence not specified K21.9 Active confirmed 448879667 Problem Other cataract of right eye H26.8 Active confirmed 932189136 Problem Essential hypertension I10 Active confirmed 31573875 Problem Type 2 diabetes mellitus wit hout complication, without long-term current use of insulin E11.9 Active confirmed 528513396 Problem Other specified cataract H26.8 Active confirmed 770540923 Problem Unsteadiness on feet R26.81 Active confirmed 94865501 Problem Iron deficiency anemia, unspecified iron deficiency an emia type D50.9 Active confirmed 26208040 Problem History of SCC (squamous cell carcinoma) of skin Z 85.828 Active confirmed 320730374 Problem Arthritis M19.90 Active confirmed 8219047 Problem Dementia without behavioral disturbance, unspeci fied dementia type F03.90 Active confirmed 34329168 Problem Constipation, unspecified constipation type K59.00 Active confirmed 86394904 Problem 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 Active co nfirmed 826162634789 Problem Gastroesophageal reflux disease without esophagitis K21.9 Active confirmed 842305729 Problem Diabetes mellitus type 1, controlled, without complication s E10.9 Active confirmed 497447663 Problem Other chronic pain G89.29 Active confirmed 8 7159142 Problem Squamous cell carcinoma C44.92 Active confirmed 958549050 Problem 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 rhinitis, unspecified trigger J3 0.2 Active confirmed 473646357 Problem Hyperlipidemia, unspecified hyperlipidemia type E7 8.5 Active confirmed 06024634 Problem Panlobular emphysema J43.1 Active confirmed 8575383 Problem Microcytic anemia D50.9 Active confirmed 23 7968789 ALLERGIES Allergen (clinical drug ingredient) Drug/Non Drug Allergy do cumented on EMR Reaction Allergy Type Onset Date Status metformin Metformin HCl([facility] Code:[address]-88) stomach upset Drug A llergy Active ENCOUNTERS from 1930 to 2020-05-01 Encounter Location Date Provider Diagnosis [address] [address] Apr, Valreia Varma Physical deconditioning R53. 81 IMMUNIZATIONS No Information SOCIAL HISTORY Tobacco Use: [...] Notes Start Da te End Date Status Portable oxygen concentrator as directed via nasal can nula at rate of 2-4L/min; Pox <88% on RA with ambulation. Tritrate to effect. Please provide ULI. Thankyou for 999 days Oct, Active Stool Softener 100 MG 1 capsule as needed Orally Once a day for 30 da y(s) Not-Taking Pravastatin Sodium 40 MG 1 tablet Orally Active Combivent Respimat 20-100 MCG/ACT inhale one puff by m outh four times a day Inhalation every 6 hrs for 90 days Not-Taking Medical Compression Stockings - stocking 15-30mmhg each leg jessica y for 99 days Apr, Active Jardiance 25 MG 1 tablet Orally Once a day for 90 day(s) 0 2 Apr, 2020 Active Metolazone 2.5 MG Oral every other day Active Aspir-81 Active Carvedilol 6.25 MG 2 tabs in AM and 1 tab in PM Orally twice per day Active physical therapy eval and tx - - - -3x per week for -6 weeks Apr, Active Ferrous Sulfate 325 (65 Fe) MG 1 tablet Orally TWICE A WEEK Mar, Active Prevalon Heel Protector - 1 boot each leg daily for 99 days Apr, Active GlipiZIDE ER 5 MG 2 tablet with food Orally Once a day for 90 days Active Cane - as directed externally prn for 1 dose Active Omeprazole 20 MG 1 capsule 30 minutes before morning meal Orally Once a day for 90 day(s) Active Enalapril Maleate 20 MG 1 tablet Orally once a day Active Combivent Respimat 20-100 MCG/ACT 1 puff as needed Inhalation every 6 hrs Not-Taking Torsemide 20 MG one tablet in the morning an d half a tablet in the afternoon as needed Orally daily for 30 days Apr, Active Diltiazem HCl ER 180 MG 1 capsule Orally Once a day for 90 day(s) Active PROCEDURES No Information RESULTS No Results REASON FOR VISIT Physical Therapy MEDICAL (GENERAL) HISTORY Type Description Date Medical [...] Davis 03/2018 Hospitalization History Pyelonephritis Hospitalization History [facility]- fluid around lungs 10/2019 Goals Section No Information Health Concerns No Information MEDICAL EQUIPMENT No Information MENTAL STATUS No Information FUNCTIONAL STATUS No Information ASSESSMENTS Encounter Date Diagnosis Assessment Notes Treatment Notes Treatm ent Clinical Notes Apr, Physical deconditioning (ICD-10 - R53.81) PLAN OF TREATMENT Medication Medication Name Sig Start Date Stop Date physical therapy eval and tx - - - -3x per week for -6 weeks Apr, Next Appt Details Provider Name:Valeria Varma, 01:00:00 PM, [address] [place] [address], [phone], Insurance Providers Payer Name Payer Address Payer Phone Insured Name Patient Relati onship to Insured Coverage Start Date Coverage End Date [facility] - [employer] MED[employer] DIVISION [address] [facility] [address] Francesca Ramirez [facility] OPTIONS [facility] [address] [facility] [id number] Francesca Ramirez [employer] - [place] [address] [facility] [id number] Francesca Ramirez [facility] - MEDICAID ANCILLARY [facility] [place] [facility] [address] [facility] [phone] Francesca Ramirez
--- OUTSIDE RECORDS SUMMARY | 2020-05-03 18:57 | CCD ---
Author Author [facility] Organization [facility] Address Unknown Phone Unavailable Care Team Providers Care Sand Mixer Name Role Phone Valeria Meyer Unavailable PROBLEMS Type Condition ICD9-CM Code [id number] Code Onset Dates Condition S tatus W/U Status Risk SNOMED Code Notes Problem Gastroesophageal reflux disease, esophagitis pre sence not specified K21.9 Active confirmed 593779261 Problem Other cataract of right eye H26.8 Active confirmed 495088431 Problem Essential hypertension I10 Active confirmed 14021485 Problem Type 2 diabetes mellitus wit hout complication, without long-term current use of insulin E11.9 Active confirmed 084639011 Problem Other specified cataract H26.8 Active confirmed 423820984 Problem Unsteadiness on feet R26.81 Active confirmed 57037383 Problem Iron deficiency anemia, unspecified iron deficiency an emia type D50.9 Active confirmed 27411946 Problem History of SCC (squamous cell carcinoma) of skin Z 85.828 Active confirmed 168970965 Problem Arthritis M19.90 Active confirmed 7315099 Problem Dementia without behavioral disturbance, unspeci fied dementia type F03.90 Active confirmed 41836163 Problem Constipation, unspecified constipation type K59.00 Active confirmed 17993849 Problem 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 Active co nfirmed 374099390342 Problem Gastroesophageal reflux disease without esophagitis K21.9 Active confirmed 696353977 Problem Diabetes mellitus type 1, controlled, without complication s E10.9 Active confirmed 026470112 Problem Other chronic pain G89.29 Active confirmed 8 8246201 Problem Squamous cell carcinoma C44.92 Active confirmed 198496106 Problem 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 rhinitis, unspecified trigger J3 0.2 Active confirmed 251655449 Problem Hyperlipidemia, unspecified hyperlipidemia type E7 8.5 Active confirmed 23654629 Problem Panlobular emphysema J43.1 Active confirmed 3007395 Problem Microcytic anemia D50.9 Active confirmed 23 5713976 ALLERGIES Allergen (clinical drug ingredient) Drug/Non Drug Allergy do cumented on EMR Reaction Allergy Type Onset Date Status metformin Metformin HCl([facility] Code:[address]-01) stomach upset Drug A llergy Active ENCOUNTERS from 1931 to 2020-04-18 Encounter Location Date Provider Diagnosis [address] [address] Apr, Valeria Mitch Edema, unspecified type R60. 9 and Type 2 diabetes mellitus without complication, without long-term current use of insulin E11.9 IMMUNIZATIONS No Information SOCIAL HISTORY Tobacco Use: [...] morning meal Orally On a day Not-Taking Jardiance 10 MG 1 tablet Orally Once a day for 90 days Active Lasix 20 MG 2 tabs in am and one in am Orally Once a day Active Stool Softener 100 MG 1 capsule as needed Orally Once a day for 30 da y(s) Not-Taking Furosemide 20 MG 2 tablet in am 1 in afternoon Orally Twice a day Active Omeprazole 20 MG 1 capsule 30 minutes before morning meal Orally Once a day for 90 day(s) Active Prevalon Heel Protector - 1 boot each leg daily for 99 days Apr, Active GlipiZIDE ER 5 MG 2 tablet with food Orally Once a day for 90 days Active Combivent Respimat 20-100 MCG/ACT 1 puff [...] 2.5 MG Oral every other day Active Pravastatin Sodium 40 MG 1 tablet Orally Active Aspir-81 Active Ferrous Sulfate 325 (65 Fe) MG 1 tablet Orally TWICE A WEEK Mar, Active Carvedilol 6.25 MG 2 tabs in AM and 1 tab in PM Orally twice per day Active Cane - as directed externally prn for 1 dose Active Enalapril Maleate 20 MG 1 tablet Orally once a day Active Metolazone 2.5 MG 1 tablet Orally Once a day for 30 day(s) Active Combivent Respimat 20-100 MCG/ACT inhale one puff by m outh four times a day Inhalation every 6 hrs for 90 days Not-Taking Torsemide 20 MG one tablet in the morning an d half a tablet in the afternoon as needed Orally daily for 30 days Apr, Active Medical Compression Stockings - stocking 15-30mmhg each leg jessica y for 99 days Apr, Active Diltiazem HCl ER 180 MG 1 capsule Orally Once a day for 90 day(s) Active PROCEDURES No Information RESULTS Component Value Reference Range HGBA1C Reviewed date:04/18/2020 14:51:41 Interpretation: Performing Lab: HGBA1C 11.6 3.8-5.6 ESTIMATED AVERAGE GLUCOSE 286.2 REASON FOR VISIT Lab orders MEDICAL (GENERAL) HISTORY Type Description Date Medical [...] [place] 03/2018 Hospitalization History Pyelonephritis Hospitalization History [facility]- fluid around lungs 10/2019 Goals Section No Information Health Concerns No Information MEDICAL EQUIPMENT No Information MENTAL STATUS No Information FUNCTIONAL STATUS No Information ASSESSMENTS Encounter Date Diagnosis Assessment Notes Treatment Notes Treatm ent Clinical Notes Apr, Edema, unspecified type (ICD-10 - R60.9) Apr, Type 2 diabetes mellitus wit hout complication, without long-term current use of insulin (ICD-10 - E11.9) PLAN OF TREATMENT Medication Medication Name Sig Start Date Stop Date Jardiance 25 MG 1 tablet Orally Once a day for 90 day(s) Apr, Torsemide 20 MG one tablet in the morning an d half a tablet in the afternoon as needed Orally daily for 30 days Apr, Treatment Notes Test Name Order Date [facility] 2020-04-18 Insurance Providers Payer Name Payer Address Payer Phone Insured Name Patient Relati onship to Insured Coverage Start Date Coverage End Date [employer] OPTIONS [facility] DIV[facility] [address] [facility] [phone] Francesca Ramirez [facility] - MEDICAID ANCILLARY [facility] BILL [facility] [address] [facility] [phone] Francesca Ramirez [facility] [place] MEDICARE DIVISION [address] [facility] [address] Francesca Ramirez [facility] - MEDICARE [place] [address] [facility] [address] [phone] Francesca Ramirez
--- OUTSIDE RECORDS SUMMARY | 2020-05-03 18:57 | CCD ---
Author Author [facility] Organization [facility] Address Unknown Phone Unavailable Care Team Providers Care Area Manager Name Role Phone Valeria Varma Unavailable PROBLEMS Type Condition ICD9-CM Code [id number] Code Onset Dates Condition S tatus W/U Status Risk SNOMED Code Notes Problem Other cataract of right eye H26.8 Active confirmed 483526804 Problem Squamous cell carcinoma C44.92 Active confirmed 510804951 Problem Type 2 diabetes mellitus wit hout complication, without long-term current use of insulin E11.9 Active confirmed 295214504 Problem Gastroesophageal reflux disease, esophagitis pre sence not specified K21.9 Active confirmed 593166547 Problem Unsteadiness on feet R26.81 Active confirmed 40395725 Problem Essential hypertension I10 Active confirmed 15105364 Problem History of SCC (squamous cell carcinoma) of skin Z 85.828 Active confirmed 338265952 Problem Other specified cataract H26.8 Active confirmed 770796299 Problem Gastroesophageal reflux disease without esophagitis K21.9 Active confirmed 532478705 Problem Arthritis M19.90 Active confirmed 7702104 Problem Dementia without behavioral disturbance, unspeci fied dementia type F03.90 Active confirmed 87916077 Problem Microcytic anemia D50.9 Active confirmed 23 8767877 Problem Other chronic pain G89.29 Active confirmed 8 3795852 Problem 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 Active co nfirmed 862983200158 Problem Iron deficiency anemia, unspecified iron deficiency an emia type D50.9 Active confirmed 39011484 Problem Constipation, unspecified constipation type K59.00 Active confirmed 42877736 Problem 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 rhinitis, unspecified trigger J3 0.2 Active confirmed 143022814 Problem Hyperlipidemia, unspecified hyperlipidemia type E7 8.5 Active confirmed 09394137 Problem Panlobular emphysema J43.1 Active confirmed 2140875 ALLERGIES Allergen (clinical drug ingredient) Drug/Non Drug Allergy do cumented on EMR Reaction Allergy Type Onset Date Status metformin Metformin HCl([facility] Code:[address]-11) stomach upset Drug A llergy Active ENCOUNTERS from 1930 to 2020-04-17 Encounter Location Date Provider Diagnosis [address] [address] Apr, Valeria Varma Lower extremity edema R60.0 IMMUNIZATIONS No Information SOCIAL HISTORY Tobacco [...] Notes Start Da te End Date Status GlipiZIDE ER 5 MG 2 tablet with food Orally Once a day for 90 days Active Combivent Respimat 20-100 MCG/ACT inhale one puff by m outh four times a day Inhalation every 6 hrs for 90 days Not-Taking Stool Softener 100 MG 1 capsule as needed Orally Once a day for 30 da y(s) Not-Taking Carvedilol 6.25 MG 2 tabs in AM and 1 tab in PM Orally twice per day Active Combivent Respimat 20-100 MCG/ACT 1 puff as needed Inhalation every 6 hrs Active Diltiazem HCl ER 180 MG 1 capsule Orally Once a day for 90 day(s) Active Metolazone 2.5 MG Oral every other day Active Furosemide 20 MG 2 tablet in am 1 in afternoon Orally Twice a day Active Ferrous Sulfate 325 (65 Fe) MG 1 tablet Orally TWICE A WEEK Mar, Active Cane - as directed externally prn for 1 dose Active Omeprazole 20 MG 1 capsule 30 minutes before morning meal Orally Once a day for 90 day(s) Active Enalapril Maleate 20 MG 1 tablet Orally once a day Active Pravastatin Sodium 40 MG 1 tablet Orally Active Omeprazole 20 MG 1 capsule 30 minutes before morning meal Orally On ce a day Not-Taking Prevalon Heel Protector - 1 boot each leg daily for 99 days Apr, Active Aspir-81 Active Medical Compression Stockings - stocking 15-30mmhg each leg jessica y for 99 days Apr, Active Jardiance 10 MG 1 tablet Orally Once a day for 90 days Active Portable oxygen concentrator as directed via nasal can nula at rate of 2-4L/min; Pox <88% on RA with ambulation. Tritrate to effect. Please provide [facility]. [place] for 999 days Oct, Active PROCEDURES No Information RESULTS No Results REASON FOR VISIT Rx MEDICAL (GENERAL) HISTORY Type Description Date Medical History Hypertension Medical History Heart Murmur (Had echo in 2015) Medical History Skin cancer - squamous cell [...] [place] 03/2018 Hospitalization History Pyelonephritis Hospitalization History [facility]- fluid around lungs 10/2019 Goals Section No Information Health Concerns No Information MEDICAL EQUIPMENT No Information MENTAL STATUS No Information FUNCTIONAL STATUS No Information ASSESSMENTS Encounter Date Diagnosis Assessment Notes Treatment Notes Treatm ent Clinical Notes Apr, Lower extremity edema (ICD-10 - R60.0) PLAN OF TREATMENT Medication Medication Name Sig Start Date Stop Date Prevalon Heel Protector - 1 boot each leg daily for 99 days 2020 Medical Compression Stockings - stocking 15-30mmhg each leg daily for 99 days Apr, Next Appt Details Provider Name:Valeria Meyer, 2020-04-0 2 11:30:00 AM, [address] [place] [address], [phone], Insurance Providers Payer Name Payer Address Payer Phone Insured Name Patient Relati onship to Insured Coverage Start Date Coverage End Date [facility] - MEDICARE [place] [address] [place] [address] Francesca Ramirez [facility] - MEDICAID ANCILLARY [facility] [address] [facility] [phone] Francesca Ramirez [facility] [place] MEDICARE DIVISION [address] [facility] [address] Francesca Ramirez [facility] HEALTH CARE OPTIONS [facility] DIVISION [address] [facility] [phone] Francesca Ramirez
--- OUTSIDE RECORDS SUMMARY | 2020-05-03 18:57 | CCD ---
Author Author [facility] Organization [facility] Address Unknown Phone Unavailable Care Team Providers Care Surgical Technologist Name Role Phone Valeria Varma Unavailable PROBLEMS Type Condition ICD9-CM Code [id number] Code Onset Dates Condition S tatus W/U Status Risk SNOMED Code Notes Problem Gastroesophageal reflux disease, esophagitis pre sence not specified K21.9 Active confirmed 534867698 Problem Other cataract of right eye H26.8 Active confirmed 217572430 Problem Essential hypertension I10 Active confirmed 08800527 Problem Type 2 diabetes mellitus wit hout complication, without long-term current use of insulin E11.9 Active confirmed 562277577 Problem Other specified cataract H26.8 Active confirmed 006212320 Problem Unsteadiness on feet R26.81 Active confirmed 18701019 Problem Iron deficiency anemia, unspecified iron deficiency an emia type D50.9 Active confirmed 49452961 Problem History of SCC (squamous cell carcinoma) of skin Z 85.828 Active confirmed 972562521 Problem Arthritis M19.90 Active confirmed 3805141 Problem Dementia without behavioral disturbance, unspeci fied dementia type F03.90 Active confirmed 46196682 Problem Constipation, unspecified constipation type K59.00 Active confirmed 23021561 Problem 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 Active co nfirmed 140197878679 Problem Gastroesophageal reflux disease without esophagitis K21.9 Active confirmed 047818860 Problem Diabetes mellitus type 1, controlled, without complication s E10.9 Active confirmed 134866994 Problem Other chronic pain G89.29 Active confirmed 8 4210035 Problem Squamous cell carcinoma C44.92 Active confirmed 648469965 Problem 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 rhinitis, unspecified trigger J3 0.2 Active confirmed 704811003 Problem Hyperlipidemia, unspecified hyperlipidemia type E7 8.5 Active confirmed 77532587 Problem Panlobular emphysema J43.1 Active confirmed 8132762 Problem Microcytic anemia D50.9 Active confirmed 23 4886220 ALLERGIES Allergen (clinical drug ingredient) Drug/Non Drug Allergy do cumented on EMR Reaction Allergy Type Onset Date Status metformin Metformin HCl([facility] Code:[address]-25) stomach upset Drug A llergy Active ENCOUNTERS from 1930 to 2020-04-24 Encounter Location Date Provider Diagnosis [address] [address] Apr, Valeria Varma IMMUNIZATIONS No Information SOCIAL [...] 30 minutes before morning meal Orally On day Not-Taking Prevalon Heel Protector - 1 [...] Information RESULTS No Results REASON FOR VISIT call MEDICAL (GENERAL) HISTORY Type Description Date Medical [...] [place] 03/2018 Hospitalization History Pyelonephritis Hospitalization History [facility]- fluid around lungs 10/2019 Goals Section [...] Insured Coverage Start Date Coverage End Date [facility] - MEDICAID ANCILLARY [facility] [address] [facility] [phone] Francesca Ramirez self [facility] - MEDICARE [place] [address] [facility] [address] [phone] Francesca Ramirez self [facility] - [place] MEDICARE DIVISION [address] [facility] 1390 Francesca Ramirez self [facility] HEALTH CARE OPTIONS [facility] [address] [facility] [phone] Francesca Ramirez self
--- OUTSIDE RECORDS SUMMARY | 2020-05-03 18:57 | CCD ---
Author Author [facility] Organization [facility] Address Unknown Phone Unavailable Care Team Providers Care Ceramics Machine Operator Name Role Phone Valeria Varma Unavailable PROBLEMS Type Condition ICD9-CM Code [id number] Code Onset Dates Condition S tatus W/U Status Risk SNOMED Code Notes Problem Gastroesophageal reflux disease, esophagitis pre sence not specified K21.9 Active confirmed 160848111 Problem Other cataract of right eye H26.8 Active confirmed 195300526 Problem Essential hypertension I10 Active confirmed 99676917 Problem Type 2 diabetes mellitus wit hout complication, without long-term current use of insulin E11.9 Active confirmed 212361112 Problem Other specified cataract H26.8 Active confirmed 317401126 Problem Unsteadiness on feet R26.81 Active confirmed 84844740 Problem Iron deficiency anemia, unspecified iron deficiency an emia type D50.9 Active confirmed 32860343 Problem History of SCC (squamous cell carcinoma) of skin Z 85.828 Active confirmed 051811798 Problem Arthritis M19.90 Active confirmed 8856107 Problem Dementia without behavioral disturbance, unspeci fied dementia type F03.90 Active confirmed 82552604 Problem Constipation, unspecified constipation type K59.00 Active confirmed 62726887 Problem 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 Active co nfirmed 396701189557 Problem Gastroesophageal reflux disease without esophagitis K21.9 Active confirmed 246646569 Problem Diabetes mellitus type 1, controlled, without complication s E10.9 Active confirmed 602378267 Problem Other chronic pain G89.29 Active confirmed 8 6123453 Problem Squamous cell carcinoma C44.92 Active confirmed 779498012 Problem 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 rhinitis, unspecified trigger J3 0.2 Active confirmed 132002752 Problem Hyperlipidemia, unspecified hyperlipidemia type E7 8.5 Active confirmed 30150224 Problem Panlobular emphysema J43.1 Active confirmed 1743687 Problem Microcytic anemia D50.9 Active confirmed 23 3536258 ALLERGIES Allergen (clinical drug ingredient) Drug/Non Drug Allergy do cumented on EMR Reaction Allergy Type Onset Date Status metformin Metformin HCl([facility] Code:[address]-41) stomach upset Drug A llergy Active ENCOUNTERS from 1931 to 2020-05-01 Encounter Location Date Provider Diagnosis [address] [address] Apr, Valeriadarin Varma IMMUNIZATIONS No Information SOCIAL HISTORY Tobacco [...] Information RESULTS No Results REASON FOR VISIT TCM MEDICAL (GENERAL) HISTORY Type Description Date Medical [...] [place] 03/2018 Hospitalization History Pyelonephritis Hospitalization History [facility]- fluid around lungs 10/2019 Goals Section No Information Health Concerns No Information MEDICAL EQUIPMENT No Information MENTAL STATUS No Information FUNCTIONAL STATUS No Information ASSESSMENTS No Information PLAN OF TREATMENT Medication Medication Name Sig Start Date Stop Date physical therapy eval and tx - - - -3x per week for -6 weeks Apr, Next Appt Details Provider Name:Valeria Varma, 01:00:00 PM, [address] [place] [address], [phone], Insurance Providers Payer Name Payer Address Payer Phone Insured Name Patient Relati onship to Insured Coverage Start Date Coverage End Date [employer] CARE OPTIONS [facility] DIVISION [address] [facility] [phone] Francesca Ramirez [facility] - MEDICAID ANCILLARY [facility] [address] [facility] [phone] Francesca [facility] [facility] [address] [facility] [address] [phone] Francesca Ramirez [facility] - [place] MEDICARE DIVISION [address] [facility] 1390 Francesca Ramirez self
--- OUTSIDE RECORDS SUMMARY | 2020-05-03 18:57 | CCD ---
Author Author [facility] Organization [facility] Address Unknown Phone Unavailable Care Team Providers Care Employment Program Representative Name Role Phone Valeria Varma Unavailable PROBLEMS Type Condition ICD9-CM Code [id number] Code Onset Dates Condition S tatus W/U Status Risk SNOMED Code Notes Problem Gastroesophageal reflux disease, esophagitis pre sence not specified K21.9 Active confirmed 670492925 Problem Other cataract of right eye H26.8 Active confirmed 347403070 Problem Essential hypertension I10 Active confirmed 44668378 Problem Type 2 diabetes mellitus wit hout complication, without long-term current use of insulin E11.9 Active confirmed 219851455 Problem Other specified cataract H26.8 Active confirmed 222197983 Problem Unsteadiness on feet R26.81 Active confirmed 42589018 Problem Iron deficiency anemia, unspecified iron deficiency an emia type D50.9 Active confirmed 21162520 Problem History of SCC (squamous cell carcinoma) of skin Z 85.828 Active confirmed 393295244 Problem Arthritis M19.90 Active confirmed 7362509 Problem Dementia without behavioral disturbance, unspeci fied dementia type F03.90 Active confirmed 47894707 Problem Constipation, unspecified constipation type K59.00 Active confirmed 51858481 Problem 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 Active co nfirmed 994782744097 Problem Gastroesophageal reflux disease without esophagitis K21.9 Active confirmed 920613241 Problem Diabetes mellitus type 1, controlled, without complication s E10.9 Active confirmed 448827928 Problem Other chronic pain G89.29 Active confirmed 8 9973296 Problem Squamous cell carcinoma C44.92 Active confirmed 324499041 Problem 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 rhinitis, unspecified trigger J3 0.2 Active confirmed 737249305 Problem Hyperlipidemia, unspecified hyperlipidemia type E7 8.5 Active confirmed 87165981 Problem Panlobular emphysema J43.1 Active confirmed 2077943 Problem Microcytic anemia D50.9 Active confirmed 23 3352511 ALLERGIES Allergen (clinical drug ingredient) Drug/Non Drug Allergy do cumented on EMR Reaction Allergy Type Onset Date Status metformin Metformin HCl([facility] [place] 2[place] Code:[address]-57) stomach upset Drug A llergy Active ENCOUNTERS from 1931 to 2020-04-19 Encounter Location Date Provider Diagnosis [address] [address] Apr, Valeria Varma Type 2 diabetes mellitus wit hout complication, without long-term current use of insulin E11.9 ; Essential hypertension I10 ; 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 ; Chronic right-sided congestive heart f ailure I50.812 ; Lower extremity edema R60.0 and Pressure injury of skin of heel, unspecified injury stage, unspecified laterality L89.609 IMMUNIZATIONS No Information SOCIAL HISTORY Tobacco Use: [...] Information RESULTS No Results REASON FOR VISIT 2-3 MONTH FOLLOW UP MEDICAL (GENERAL) HISTORY Type Description Date Medical [...] [place] 03/2018 Hospitalization History Pyelonephritis Hospitalization History [facility]- fluid around lungs 10/2019 Goals Section No Information Health Concerns No Information MEDICAL EQUIPMENT No Information MENTAL STATUS No Information FUNCTIONAL STATUS No Information ASSESSMENTS Encounter Date Diagnosis Assessment Notes Treatment Notes Treatm ent Clinical Notes Apr, Type 2 diabetes mellitus wit hout complication, without long-term current use of insulin (ICD-10 - E11.9) A1C 01/23/2020 9.0 DIL unsure if patient has been taking GLipizide - will call with confirmation and will adjust therapy Apr, Essential hypertension (ICD-10 - I10) Things that you can do at home to improve and maintain a healthy blood pressure: - Decrease salt intake - Increase water intake - Decrease alcohol and caffeine intake - Increase exercise - Weight loss. continue to follow with dr morrison Apr, Supplemental oxygen dependent (ICD-10 - Z99.81) on 2 litres supplemental oxygen with compliance. Apr, Chronic right-sided congestive heart failure (IC D-10 - I50.812) continue compression stockings, diuretics Apr, Lower extremity edema (ICD-10 - R60.0) as above Apr, Pressure injury of skin of h eel, unspecified injury stage, unspecified laterality (ICD-10 - L89.609) start pressure boots for heel ulcers on b/l feet Apr, Other All questions and concerns addressed, patient understanding and agreeable to plan. Patient encouraged to follow up at the clinic for any additional or new questions or concerns. Due to the recent outbreak and social health situation, the patient was called to discuss her medical issues over the phone to avoid having the patient come into the clinic and risk exposure. The pt verbalized consent for phone call visit instead of office visit due to potential risk of coronavirus exposure. The patient was interviewed and any/all significant health concerns were addressed. New labs or referrals were sent as required, and all medications were refilled as needed. The patient was provided with the most recent education on COVID health precautions and encouraged to continue to avoid large groups, social settings, wash their hands, stay at home if ill, call the clinic prior to presenting for evaluation, signs/symptoms of COVID, and other education. The patient was made aware that any/all minor surgical procedures and/or referrals to specialty care might face delays due to the recent outbreak. This provider spent 12 minutes on the phone with the patient. The patient verbalized unders tanding and will follow-up with me or the clinic as needed. Alexa Snowden, scribing the following service on behalf of Valeria Varma NP on 04-17-2020 PLAN OF TREATMENT Medication Medication Name Sig [...] 2020 Treatment Notes Assessment Notes Clinical Notes Type 2 diabetes mellitus without complic ation, without long-term current use of insulin A1C 01/23/2020 9.0DIL unsure if patient h as been taking GLipizide - will call with confirmation and will adjust therapy Essential hypertension Things that you can do at [facility] to improve and maintain a healthy blood pressure: - Decrease salt intake - Increase water intake - Decrease alcohol and caffeine intake - Increase exercise - Weight loss.continue to follow with dr morrison Supplemental oxygen dependent on 2 litres supplemental oxyge n with compliance. Chronic right-sided congestive heart failure continue compression stockings, diuretics Lower extremity edema as above Pressure injury of skin of heel, unspeci fied injury stage, unspecified laterality start pressure boots for heel ulcers on b/l feet Next Appt Details prn Reason: Insurance Providers Payer Name Payer Address Payer Phone Insured Name Patient Relati onship to Insured Coverage Start Date Coverage End Date [facility] - MEDIC[place] [address] [place] [address] [phone] Francesca Ramirez A[employer] HEALTH CARE OPTIONS [facility] DIVISION [address] [facility] [phone] Francesca Ramirez [employer] - MEDICAID ANCILLARY [place] APG BILL R IVER [facility] [address] [facility] [phone] Francesca Ramirez [facility] [place] MED[place]ARE DIVISION [address] [facility] 1390 Francesca Ramirez
--- OUTSIDE RECORDS SUMMARY | 2020-05-03 18:57 | CCD ---
Author Author [facility] Organization [facility] Address Unknown Phone Unavailable Care Team Providers Care Claims Support Specialist Name Role Phone Valeria Varma Unavailable PROBLEMS Type Condition ICD9-CM Code LVB41-WC Code Onset Dates Condition S tatus W/U Status Risk SNOMED Code Notes Problem Other cataract of right eye H26.8 Active confirmed 438500446 Problem Squamous cell carcinoma C44.92 Active confirmed 655523576 Problem Type 2 diabetes mellitus wit hout complication, without long-term current use of insulin E11.9 Active confirmed 771276544 Problem Gastroesophageal reflux disease, esophagitis pre sence not specified K21.9 Active confirmed 882948768 Problem Unsteadiness on feet R26.81 Active confirmed 83426312 Problem Essential hypertension I10 Active confirmed 11026949 Problem History of SCC (squamous cell carcinoma) of skin Z 85.828 Active confirmed 689016907 Problem Other specified cataract H26.8 Active confirmed 925313434 Problem Gastroesophageal reflux disease without esophagitis K21.9 Active confirmed 375103775 Problem Arthritis M19.90 Active confirmed 4263443 Problem Dementia without behavioral disturbance, unspeci fied dementia type F03.90 Active confirmed 23955663 Problem Microcytic anemia D50.9 Active confirmed 23 9901666 Problem Other chronic pain G89.29 Active confirmed 8 5789262 Problem 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 Active co nfirmed 363339970226 Problem Iron deficiency anemia, unspecified iron deficiency an emia type D50.9 Active confirmed 43633021 Problem Constipation, unspecified constipation type K59.00 Active confirmed 98432599 Problem 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 rhinitis, unspecified trigger J3 0.2 Active confirmed 174702105 Problem Hyperlipidemia, unspecified hyperlipidemia type E7 8.5 Active confirmed 93339766 Problem Panlobular emphysema J43.1 Active confirmed 2023669 ALLERGIES Allergen (clinical drug ingredient) Drug/Non Drug Allergy do cumented on EMR Reaction Allergy Type Onset Date Status metformin Metformin HCl([facility] Code:[address]-45) stomach upset Drug A llergy Active ENCOUNTERS from 1931 to 2020-04-17 Encounter Location Date Provider Diagnosis [address] [address] Apr, Valeria Varma IMMUNIZATIONS No Information SOCIAL [...] ULI. Thankyou for 999 days Oct, Active PROCEDURES No Information RESULTS No Results REASON FOR VISIT Labs MEDICAL (GENERAL) HISTORY Type Description Date Medical [...] [place] 03/2018 Hospitalization History Pyelonephritis Hospitalization History [facility]- fluid around lungs 10/2019 Goals Section [...] Provider Name:Valeria Meyer, 2020-04-0 2 11:30:00 AM, [address] [place] [address], [phone], Insurance Providers Payer Name Payer Address Payer Phone Insured Name Patient Relati onship to Insured Coverage Start Date Coverage End Date [facility] - [facility]ICARE [place] [address] [facility] [id number] [phone] Francesca Ramirez [facility] - MEDICAID ANCILLARY [facility] APG BILL R IVER H[facility] [address] [facility] [id number] Francesca Ramirez [facility] HE[facility] CARE OPTIONS [facility] DIVISION [address] [facility] [phone] Francesca Ramirez [facility] - [employer] MEDICARE DIVISION [address] [facility] 1390 Francesca Ramirez
--- OUTSIDE RECORDS SUMMARY | 2020-05-03 18:57 | CCD ---
Author Author [facility] Organization [facility] Address Unknown Phone Unavailable Care Team Providers Care Slag Skimmer Name Role Phone Valeria Varma Unavailable PROBLEMS Type Condition ICD9-CM Code SJR08-GT Code Onset Dates Condition S tatus W/U Status Risk SNOMED Code Notes Problem Gastroesophageal reflux disease, esophagitis pre sence not specified K21.9 Active confirmed 879284985 Problem Other cataract of right eye H26.8 Active confirmed 308625317 Problem Essential hypertension I10 Active confirmed 97194837 Problem Type 2 diabetes mellitus wit hout complication, without long-term current use of insulin E11.9 Active confirmed 561342334 Problem Other specified cataract H26.8 Active confirmed 770343972 Problem Unsteadiness on feet R26.81 Active confirmed 77046475 Problem Iron deficiency anemia, unspecified iron deficiency an emia type D50.9 Active confirmed 98094465 Problem History of SCC (squamous cell carcinoma) of skin Z 85.828 Active confirmed 962120941 Problem Arthritis M19.90 Active confirmed 6996446 Problem Dementia without behavioral disturbance, unspeci fied dementia type F03.90 Active confirmed 83705668 Problem Constipation, unspecified constipation type K59.00 Active confirmed 46709930 Problem 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 Active co nfirmed 234940867166 Problem Gastroesophageal reflux disease without esophagitis K21.9 Active confirmed 282445050 Problem Diabetes mellitus type 1, controlled, without complication s E10.9 Active confirmed 544444578 Problem Other chronic pain G89.29 Active confirmed 8 8047140 Problem Squamous cell carcinoma C44.92 Active confirmed 892958936 Problem 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 rhinitis, unspecified trigger J3 0.2 Active confirmed 319943303 Problem Hyperlipidemia, unspecified hyperlipidemia type E7 8.5 Active confirmed 76544614 Problem Panlobular emphysema J43.1 Active confirmed 3407158 Problem Microcytic anemia D50.9 Active confirmed 23 5863090 ALLERGIES Allergen (clinical drug ingredient) Drug/Non Drug Allergy do cumented on EMR Reaction Allergy Type Onset Date Status metformin Metformin HCl([facility] Code:[address]-11) stomach upset Drug A llergy Active ENCOUNTERS from 1931 to 2020-04-19 Encounter Location Date Provider Diagnosis [address] [address] Apr, Valeria Varma Lower extremity edema R60.0 [...] Information RESULTS No Results REASON FOR VISIT RX MEDICAL (GENERAL) HISTORY Type Description Date Medical [...] [place] 03/2018 Hospitalization History Pyelonephritis Hospitalization History [facility]- fluid around lungs 10/2019 Goals [...] Insured Coverage Start Date Coverage End Date [facility] - [place] MEDICARE DIVISION [address] [facility] 139[address] Francesca Ramirez [facility] CARE OPTIONS [employer] DIVISION [address] [facility] [id number] Francesca Ramirez [facility] - MEDICARE [place] [address] [facility] [address] Francesca Ramirez [facility] - MEDICAID ANCILLARY [facility] APG BILL R IVER [facility]P [address] [facility] [phone] Francesca Ramirez
--- OUTSIDE RECORDS SUMMARY | 2020-05-03 18:58 | CCD ---
Author Author [facility] Organization [facility] Address Unknown Phone Unavailable Care Team Providers Care Fraud Examiner Name Role Phone Valeria Varma Unavailable PROBLEMS Type Condition ICD9-CM Code QFM98-FY Code Onset Dates Condition S tatus SNOMED Code Notes Problem Other cataract of right eye H26.8 Active 1934 28034 Problem Squamous cell carcinoma C44.92 Active 64913289 7 Problem Type 2 diabetes mellitus wit hout complication, without long-term current use of insulin E11.9 Active 828474176 Problem Gastroesophageal reflux disease, esophagitis pre sence not specified K21.9 Active 727619786 Problem Unsteadiness on feet R26.81 Active 38639061 Problem Essential hypertension I10 Active 99615806 Problem History of SCC (squamous cell carcinoma) of skin Z 85.828 Active 654315416 Problem Other specified cataract H26.8 Active 5395230 09 Problem Gastroesophageal reflux disease without esophagitis K21.9 Active 808600320 Problem Arthritis M19.90 Active 2939144 Problem Dementia without behavioral disturbance, unspeci fied dementia type F03.90 Active 26728022 Problem Microcytic anemia D50.9 Active 861198803 Problem Other chronic pain G89.29 Active 04134627 Problem 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 Active 93 2302660078 Problem Iron deficiency anemia, unspecified iron deficiency an emia type D50.9 Active 63225021 Problem Constipation, unspecified constipation type K59.00 Active 76811234 Problem 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 rhinitis, unspecified trigger J3 0.2 Active 542019939 Problem Hyperlipidemia, unspecified hyperlipidemia type E7 8.5 Active 17172594 Problem Panlobular emphysema J43.1 Active 9751767 ALLERGIES Allergen (clinical drug ingredient) Drug/Non Drug Allergy do cumented on EMR Reaction Allergy Type Onset Date Status metformin Metformin HCl([facility] Code:[address]-22) stomach upset Drug A llergy Active ENCOUNTERS from 1931 to 2020-02-17 Encounter Location Date Provider Diagnosis [address] [address] Feb, Valeria Varma IMMUNIZATIONS No Information SOCIAL HISTORY [...] Notes Start Da te End Date Status Furosemide 20 MG 1 tablet Orally Twice a day for 30 days Active Diltiazem HCl ER 180 MG 1 capsule Orally Once a day for 30 day(s) Active Pravastatin Sodium 40 MG 1 tablet Orally 4x week Active Combivent Respimat 20-100 MCG/ACT inhale one puff by m outh four times a day Inhalation every 6 hrs for 90 days Not-Taking Combivent Respimat 20-100 MCG/ACT 1 puff as needed Inhalation every 6 hrs Active Cane - as directed externally prn for 1 dose Active Ferrous Sulfate 325 (65 Fe) MG 1 tablet Orally TWICE A WEEK Mar, Active Jardiance 10 MG TAKE ONE TABLET BY MOUTH EVERY DAY for 30 Active Stool Softener 100 MG 1 capsule as needed Orally Once a day for 30 da y(s) Not-Taking Enalapril Maleate 20 MG 1 tablet Orally twice a day Active Carvedilol 6.25 MG 1 tablet with food Orally Twice a day for 30 day(s ) Active GlipiZIDE ER 5 MG 2 tablet with food Orally Once a day for 90 days Active Portable oxygen concentrator as directed via nasal can nula at rate of 2-4L/min; Pox <88% on RA with ambulation. Tritrate to effect. Please provide [facility]. Collinyou for 999 days Oct, Active Omeprazole 20 MG 1 capsule 30 minutes before morning meal Orally Once a day for 30 day(s) Active Omeprazole 20 MG 1 capsule 30 minutes before morning meal Orally On ce a day Not-Taking Aspir-81 Active PROCEDURES No Information RESULTS No Results REASON FOR VISIT update MEDICAL (GENERAL) HISTORY Type Description Date Medical [...] [place] 03/2018 Hospitalization History Pyelonephritis Hospitalization History [facility]- fluid around lungs 10/2019 Goals Section No Information Health Concerns No Information MEDICAL EQUIPMENT No Information MENTAL STATUS No Information FUNCTIONAL STATUS No Information ASSESSMENTS No Information PLAN OF TREATMENT Medication Medication Name Sig Start Date Stop Date GlipiZIDE ER 5 MG 2 tablet with food Orally Once a day for 90 da ys Next Appt Details Provider Name:Valeriadarin Varma, 09:20:00 AM, [address] [place] [address], [phone], Insurance Providers Payer Name Payer Address Payer Phone Insured Name Patient Relati onship to Insured Coverage Start Date Coverage End Date [employer] HE[employer] CARE OPTIONS [facility] DIV[facility] [address] [facility] [phone] Francesca Ramirez [employer] - MEDICARE [place] [address] [facility] [address] [phone] Francesca Ramirez [facility] MED[facility]ARE DIVISION [address] [facility] 1390 Francesca Ramirez [employer] - MEDICAID ANCILLARY [place] APG BILL [facility]ER [facility] [address] [facility] [phone] Francesca Ramirez
--- OUTSIDE RECORDS SUMMARY | 2020-05-03 18:58 | CCD ---
Author Author [facility] Organization [facility] Address Unknown Phone Unavailable Care Team Providers Care Agricultural Real Estate Agent Name Role Phone Valeria Varma Unavailable PROBLEMS Type Condition ICD9-CM Code [id number] Code Onset Dates Condition S tatus SNOMED Code Notes Problem Other cataract of right eye H26.8 Active 1935 24925 Problem Squamous cell carcinoma C44.92 Active 87574170 7 Problem Type 2 diabetes mellitus wit hout complication, without long-term current use of insulin E11.9 Active 148876571 Problem Gastroesophageal reflux disease, esophagitis pre sence not specified K21.9 Active 124446811 Problem Unsteadiness on feet R26.81 Active 88681055 Problem Essential hypertension I10 Active 68179946 Problem History of SCC (squamous cell carcinoma) of skin Z 85.828 Active 506190810 Problem Other specified cataract H26.8 Active 5973839 09 Problem Gastroesophageal reflux disease without esophagitis K21.9 Active 691095407 Problem Arthritis M19.90 Active 8869069 Problem Dementia without behavioral disturbance, unspeci fied dementia type F03.90 Active 66358429 Problem Microcytic anemia D50.9 Active 115816337 Problem Other chronic pain G89.29 Active 88809279 Problem 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 Active 93 2230015855 Problem Iron deficiency anemia, unspecified iron deficiency an emia type D50.9 Active 84856768 Problem Constipation, unspecified constipation type K59.00 Active 59023916 Problem 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 rhinitis, unspecified trigger J3 0.2 Active 061367687 Problem Hyperlipidemia, unspecified hyperlipidemia type E7 8.5 Active 50400830 Problem Panlobular emphysema J43.1 Active 0688296 ALLERGIES Allergen (clinical drug ingredient) Drug/Non Drug Allergy do cumented on EMR Reaction Allergy Type Onset Date Status metformin Metformin HCl([facility] Code:[address]-21) stomach upset Drug A llergy Active ENCOUNTERS from 1931 to 2020-02-29 Encounter Location Date Provider Diagnosis [address] [address] Feb, Valeria Varma Type 2 diabetes mellitus wit hout complication, without long-term current use of insulin E11.9 ; Essential hypertension I10 ; 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 ; Refused influenza vaccine Z28.21 and C hronic right-sided congestive heart failure I50.812 IMMUNIZATIONS No Information SOCIAL HISTORY Tobacco Use: [...] No Information VITAL SIGNS Height 54.0 in Feb, Weight 119.6 lbs Feb, BMI 28.83 kg/m2 Feb, Temperature 98.0 degrees Fahrenheit Feb, Heart Rate 95 /min Feb, Respiratory Rate 20 /min Feb, Oximetry 95 % Feb, Blood pressure systolic 126 mmHg Feb, Blood pressure diastolic 78 mmHg Feb, MEDICATIONS Medication SIG (Take, Route, Frequency, Duration) Notes Start Da te End Date Status Active Enalapril Maleate 20 MG 1 tablet Orally twice a day for 90 days Active Portable oxygen concentrator as directed via nasal can nula at rate of 2-4L/min; Pox <88% on RA with ambulation. Tritrate to effect. Please provide ULI. Thankyou for 999 days Oct, Active Omeprazole 20 MG 1 capsule 30 minutes before morning meal Orally On a day Not-Taking Cane - as directed externally prn for 1 dose Active Combivent Respimat 20-100 MCG/ACT inhale one puff by m outh four times a day Inhalation every 6 hrs for 90 days Not-Taking Combivent Respimat 20-100 MCG/ACT 1 puff as needed Inhalation every 6 hrs Active Diltiazem HCl ER 180 MG 1 capsule Orally Once a day for 90 day(s) Active Jardiance 10 MG 1 tablet Orally Once a day for 90 days Active GlipiZIDE ER 5 MG 2 tablet with food Orally Once a day for 90 days Active Omeprazole 20 MG 1 capsule 30 minutes before morning meal Orally Once a day for 90 day(s) Active Stool Softener 100 MG 1 capsule as needed Orally Once a day for 30 da y(s) Not-Taking Furosemide 20 MG 1 tablet Orally Twice a day for 90 days Active Ferrous Sulfate 325 (65 Fe) MG 1 tablet Orally TWICE A WEEK Mar, Active Pravastatin Sodium 40 MG 1 tablet Orally 4x week Active Carvedilol 6.25 MG 1 tablet with food Orally Twice a day for 90 days Active PROCEDURES No Information RESULTS No Results REASON FOR VISIT RH Discharge MEDICAL (GENERAL) HISTORY Type Description Date Medical [...] Notes Treatment Notes Treatm ent Clinical Notes Feb, Type 2 diabetes mellitus wit hout complication, without long-term current use of insulin (ICD-10 - E11.9) A1C 01/23/2020 9.0 DIL unsure if patient has been taking GLipizide - will call with confirmation and will adjust therapy Feb, Essential hypertension (ICD-10 - I10) Things that you can do at home to improve and maintain a healthy blood pressure: - Decrease salt intake - Increase water intake - Decrease alcohol and caffeine intake - Increase exercise - Weight loss. BP well controlled. Contrinue taking same medication regimen. Feb, Supplemental oxygen dependent (ICD-10 - Z99.81) on 2 litres supplemental oxygen with compliance. Feb, Refused influenza vaccine (ICD-10 - Z28.21) Refused flu shot today. Feb, Chronic right-sided congestive heart failure (IC D-10 - I50.812) continue compression stockings, diuretics Feb, Other All questions an d concerns addressed, patient understanding and agreeable to plan. Patient encouraged to follow up at the clinic for any additional or new questions or concerns. Alexa Snowden, scribing the following service on behalf of Valeria Varma NP on 02-15-2020 PLAN OF TREATMENT Medication Medication Name Sig Start Date Stop Date Jardiance 10 MG 1 tablet Orally Once a day for 90 days GlipiZIDE ER 5 MG 2 tablet with food Orally Once a day for 90 da ys Furosemide 20 MG 1 tablet Orally Twice a day for 90 days Diltiazem HCl ER 180 MG 1 capsule Orally Once a day for 90 day(s ) Carvedilol 6.25 MG 1 tablet with food Orally Twice a day for 90 days Omeprazole 20 MG 1 capsule 30 minutes before morning meal Orally Once a day for 90 day(s) Enalapril Maleate 20 MG 1 tablet Orally twice a day for 90 days Treatment Notes Assessment Notes Clinical Notes Type 2 diabetes mellitus without complic ation, without long-term current use of insulin A1C 01/23/2020 9.0DIL unsure if patient h as been taking GLipizide - will call with confirmation and will adjust therapy Essential hypertension Things that you can do at ho me to improve and maintain a healthy blood pressure: - Decrease salt intake - Increase water intake - Decrease alcohol and caffeine intake - Increase exercise - Weight loss.BP well controlled.Contrinue taking same medication regimen. Supplemental oxygen dependent on 2 litres supplemental oxyge n with compliance. Refused influenza vaccine Refused flu shot today. Chronic right-sided congestive heart failure continue compression stockings, diuretics Next Appt Details 2-3 months Reason: Provider Name:Valeria Varma, 09:20:00 AM, [address] [place] [address], [phone], Insurance Providers Payer Name Payer Address Payer Phone Insured Name Patient Relati onship to Insured Coverage Start Date Coverage End Date [facility] OPTIONS [facility] DIV[facility] [address] [facility] [phone] Francesca Ramirez [facility] - [facility] [address] [facility] [address] Francesca Ramirez [facility] - [facility]STATE MEDICARE DIVISION [address] [facility] [address] Francesca Ramirez [facility] - MEDICAID ANCILLARY [facility] [address] [facility] [phone] Francesca Ramirez
--- OUTSIDE RECORDS SUMMARY | 2020-05-03 18:58 | CCD ---
Author Author [facility] Organization [facility] Address Unknown Phone Unavailable Care Team Providers Care Drag Car Racer Name Role Phone Valeria Varma Unavailable PROBLEMS Type Condition ICD9-CM Code [id number] Code Onset Dates Condition S tatus SNOMED Code Notes Problem Other cataract of right eye H26.8 Active 1935 04700 Problem Squamous cell carcinoma C44.92 Active 92072634 7 Problem Type 2 diabetes mellitus wit hout complication, without long-term current use of insulin E11.9 Active 151487291 Problem Gastroesophageal reflux disease, esophagitis pre sence not specified K21.9 Active 738385490 Problem Unsteadiness on feet R26.81 Active 23252615 Problem Essential hypertension I10 Active 02581854 Problem History of SCC (squamous cell carcinoma) of skin Z 85.828 Active 660997634 Problem Other specified cataract H26.8 Active 0457436 09 Problem Gastroesophageal reflux disease without esophagitis K21.9 Active 253556654 Problem Arthritis M19.90 Active 3490241 Problem Dementia without behavioral disturbance, unspeci fied dementia type F03.90 Active 05276338 Problem Microcytic anemia D50.9 Active 417146389 Problem Other chronic pain G89.29 Active 70651919 Problem 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 Active 93 9986381111 Problem Iron deficiency anemia, unspecified iron deficiency an emia type D50.9 Active 91560299 Problem Constipation, unspecified constipation type K59.00 Active 70482755 Problem 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 rhinitis, unspecified trigger J3 0.2 Active 899464873 Problem Hyperlipidemia, unspecified hyperlipidemia type E7 8.5 Active 61386351 Problem Panlobular emphysema J43.1 Active 2973461 ALLERGIES Allergen (clinical drug ingredient) Drug/Non Drug Allergy do cumented on EMR Reaction Allergy Type Onset Date Status metformin Metformin HCl([facility] Code:[address]-08) stomach upset Drug A llergy Active ENCOUNTERS from 1931 to 2020-02-28 Encounter Location Date Provider Diagnosis [address] [address] Feb, Valeriailsa Varma IMMUNIZATIONS No Information SOCIAL HISTORY Tobacco [...] Notes Start Da te End Date Status Aspir-81 Active Enalapril Maleate 20 MG 1 tablet [...] Information RESULTS No Results REASON FOR VISIT refill MEDICAL (GENERAL) HISTORY Type Description Date Medical [...] [place] 03/2018 Hospitalization History Pyelonephritis Hospitalization History [facility]- fluid around lungs 10/2019 Goals Section [...] Orally twice a day for 90 days Next Appt Details Provider Name:Valeria Varma, 09:20:00 AM, [address] [place] [address], [phone], Insurance Providers Payer Name Payer Address Payer Phone Insured Name Patient Relati onship to Insured Coverage Start Date Coverage End Date [facility] - MEDICAID ANCILLARY [facility] [address] [facility] [phone] Francesca Ramirez [facility] - [facility] MEDICARE DIVISION [address] [facility] 139[address] Francesca Ramirez [facility] OPTIONS [facility] [address] [facility] [phone] Francesca Ramirez [facility] - MEDICARE [place] [address] [facility] [id number] Francesca Ramirez
--- OUTSIDE RECORDS SUMMARY | 2020-05-03 18:58 | CCD ---
Author Author [facility] Organization [facility] Address Unknown Phone Unavailable Care Team Providers Care Emergency Department Manager Name Role Phone Valeria Varma Unavailable PROBLEMS Type Condition ICD9-CM Code [id number] Code Onset Dates Condition S tatus SNOMED Code Notes Problem Squamous cell carcinoma C44.92 Active 12838579 7 Problem Gastroesophageal reflux disease, esophagitis pre sence not specified K21.9 Active 922029993 Problem Other cataract of right eye H26.8 Active 1935 30299 Problem Essential hypertension I10 Active 28256932 Problem Type 2 diabetes mellitus wit hout complication, without long-term current use of insulin E11.9 Active 884284475 Problem Other specified cataract H26.8 Active 0744624 09 Problem Unsteadiness on feet R26.81 Active 57625011 Problem Other chronic pain G89.29 Active 04454359 Problem Gastroesophageal reflux disease without esophagitis K21.9 Active 354742139 Problem Arthritis M19.90 Active 0601717 Problem Panlobular emphysema J43.1 Active 6426156 Problem Iron deficiency anemia, unspecified iron deficiency an emia type D50.9 Active 98692590 Problem Microcytic anemia D50.9 Active 756624672 Problem History of SCC (squamous cell carcinoma) of skin Z 85.828 Active 169780008 Problem Dementia without behavioral disturbance, unspeci fied dementia type F03.90 Active 07361268 Problem Constipation, unspecified constipation type K59.00 Active 31964255 Problem 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 rhinitis, unspecified trigger J3 0.2 Active 280786072 Problem Hyperlipidemia, unspecified hyperlipidemia type E7 8.5 Active 93608108 ALLERGIES Allergen (clinical drug ingredient) Drug/Non Drug Allergy do cumented on EMR Reaction Allergy Type Onset Date Status metformin Metformin HCl([facility] Code:[address]-73) stomach upset Drug A llergy Active ENCOUNTERS from 1931 to 2020-02-03 Encounter Location Date Provider Diagnosis [address] [address] Jan, Valeriailsa Varma IMMUNIZATIONS No Information SOCIAL HISTORY [...] Notes Start Da te End Date Status Cane - as directed externally prn for 1 dose Active Furosemide 20 MG 1 tablet Orally Twice a day for 30 days Active oxygen concentrator as directed ext Use for oxyg en delivery; pt needs uli home delivery of oxygen 24/7, 2-4L/min for 999 days Oct, Active Combivent Respimat 20-100 MCG/ACT inhale one puff by m outh four times a day Inhalation every 6 hrs for 90 days Active Portable oxygen concentrator as directed via nasal can nula at rate of 2-4L/min; Pox <88% on RA with ambulation. Tritrate to effect. Please provide ULI. Thankyou for 999 days Oct, Active Enalapril Maleate 20 MG 1 tablet Orally Once a day for 90 days Active Aspir-81 Active Jardiance 10 MG TAKE ONE TABLET BY MOUTH EVERY DAY for 30 Active Ferrous Sulfate 325 (65 Fe) MG 1 tablet Orally TWICE A WEEK Mar, Active Pravastatin Sodium 40 MG 1 tablet Orally 4x week Active Carvedilol 6.25 MG 1 tablet with food Orally Twice a day for 30 day(s ) Active Omeprazole 40 MG 1 capsule 30 minutes before morning meal Orally Once a day for 30 day(s) Active Diltiazem HCl ER 180 MG 1 capsule Orally Once a day for 30 day(s) Active Stool Softener 100 MG 1 capsule as needed Orally Once a day for 30 da y(s) Active PROCEDURES No Information RESULTS No Results REASON FOR VISIT refills MEDICAL (GENERAL) HISTORY Type Description Date Medical History Hypertension Medical History Heart Murmur (Had echo in 2016) Medical History Skin cancer - squamous cell (last skin c heck - years ago) Medical History Colon cancer Medical History Breast Cancer Medical History High Cholesterol Medical History Afib Surgical History Multiple Vein stripping (has been [...] [place] 03/2018 Hospitalization History Pyelonephritis Hospitalization History [facility]- fluid around lungs 10/2019 Goals Section No Information Health Concerns No Information MEDICAL EQUIPMENT No Information MENTAL STATUS No Information FUNCTIONAL STATUS No Information ASSESSMENTS No Information PLAN OF TREATMENT Medication Medication Name Sig Start Date Stop Date Furosemide 20 MG 1 tablet Orally Twice a day for 30 days Next Appt Details Provider Name:Valeria Varma 08:50:00 AM, [address] [place] [address], [phone], Insurance Providers Payer Name Payer Address Payer Phone Insured Name Patient Relati onship to Insured Coverage Start Date Coverage End Date [facility] - [facility]STATE MEDICARE DIVISION [address] [facility] 139[address] Francesca Ramirez self [facility] CARE OPT[facility] DIVISION [address] [facility] [id number] Francesca Ramirez self [facility] - MEDICARE [place] [address] [place] [address] Francesca Ramirez self [facility] - MEDICAID ANCILLARY [place] [facility] [address] [facility] [address] Francesca Ramirez self
--- OUTSIDE RECORDS SUMMARY | 2020-05-03 18:58 | CCD ---
Author Author [facility] Organization [facility] Address Unknown Phone Unavailable Care Team Providers Care Hedis Analyst Name Role Phone Valeria Varma Unavailable PROBLEMS Type Condition ICD9-CM Code [id number] Code Onset Dates Condition S tatus SNOMED Code Notes Problem Other cataract of right eye H26.8 Active 1935 76714 Problem Squamous cell carcinoma C44.92 Active 75023522 7 Problem Type 2 diabetes mellitus wit hout complication, without long-term current use of insulin E11.9 Active 535852750 Problem Gastroesophageal reflux disease, esophagitis pre sence not specified K21.9 Active 713713824 Problem Unsteadiness on feet R26.81 Active 78425337 Problem Essential hypertension I10 Active 71258753 Problem History of SCC (squamous cell carcinoma) of skin Z 85.828 Active 678648448 Problem Other specified cataract H26.8 Active 8691150 09 Problem Gastroesophageal reflux disease without esophagitis K21.9 Active 710224284 Problem Arthritis M19.90 Active 8941881 Problem Dementia without behavioral disturbance, unspeci fied dementia type F03.90 Active 85322211 Problem Microcytic anemia D50.9 Active 139552733 Problem Other chronic pain G89.29 Active 31001202 Problem 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 Active 93 7423771282 Problem Iron deficiency anemia, unspecified iron deficiency an emia type D50.9 Active 80286964 Problem Constipation, unspecified constipation type K59.00 Active 45397887 Problem 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 rhinitis, unspecified trigger J3 0.2 Active 939880538 Problem Hyperlipidemia, unspecified hyperlipidemia type E7 8.5 Active 28365517 Problem Panlobular emphysema J43.1 Active 5236214 ALLERGIES Allergen (clinical drug ingredient) Drug/Non Drug Allergy do cumented on EMR Reaction Allergy Type Onset Date Status metformin Metformin HCl([facility] Code:[address]-62) stomach upset Drug A llergy Active ENCOUNTERS from 1931 to 2020-04-04 Encounter Location Date Provider Diagnosis [address] [address] 10 Jan, 2020 Valeria Kojo Weakness R53.1 ; Leg swellin g M79.89 and Dyspnea, unspecified type R06.00 IMMUNIZATIONS No Information SOCIAL HISTORY Tobacco Use: [...] Information RESULTS No Results REASON FOR VISIT tcm MEDICAL (GENERAL) HISTORY Type Description Date Medical [...] [place] 03/2018 Hospitalization History Pyelonephritis Hospitalization History [facility]- fluid around lungs 10/2019 Goals Section No Information Health Concerns No Information MEDICAL EQUIPMENT No Information MENTAL STATUS No Information FUNCTIONAL STATUS No Information ASSESSMENTS Encounter Date Diagnosis Assessment Notes Treatment Notes Treatm ent Clinical Notes Jan, Weakness (ICD-10 - R53.1) Jan, Leg swelling (ICD-10 - M79.89) Jan, Dyspnea, unspecified type (ICD-10 - R06.00) PLAN OF TREATMENT Medication Medication Name Sig [...] Appt Details Provider Name:Valeria Varma, 09:20:00 AM, [address] [place] [address], [phone], Insurance Providers Payer Name Payer Address Payer Phone Insured Name Patient Relati onship to Insured Coverage Start Date Coverage End Date [facility] HEALTH CARE OPTIONS [facility] DIV[facility] [address] [facility] [phone] Francesca Ramirez [facility] - MEDICAID ANCILLARY [facility] [address] [facility] [phone] Francesca Ramirez [facility] - [facility] MEDICARE DIVISION [address] [facility] 1390 Francesca Ramirez [facility] - MEDICARE [place] [address] [place] [id number] [phone] Francesca Ramirez
--- OUTSIDE RECORDS SUMMARY | 2020-05-03 18:58 | CCD ---
Author Author [facility] Organization [facility] Address Unknown Phone Unavailable Care Team Providers Care Repairer Finished Metal Name Role Phone Valeria Varma Unavailable PROBLEMS Type Condition ICD9-CM Code [id number] Code Onset Dates Condition S tatus SNOMED Code Notes Problem Other cataract of right eye H26.8 Active 1935 96775 Problem Squamous cell carcinoma C44.92 Active 42089859 7 Problem Type 2 diabetes mellitus wit hout complication, without long-term current use of insulin E11.9 Active 124939154 Problem Gastroesophageal reflux disease, esophagitis pre sence not specified K21.9 Active 934122854 Problem Unsteadiness on feet R26.81 Active 47643610 Problem Essential hypertension I10 Active 29858276 Problem History of SCC (squamous cell carcinoma) of skin Z 85.828 Active 679173429 Problem Other specified cataract H26.8 Active 5779536 09 Problem Gastroesophageal reflux disease without esophagitis K21.9 Active 543777653 Problem Arthritis M19.90 Active 8924062 Problem Dementia without behavioral disturbance, unspeci fied dementia type F03.90 Active 09795014 Problem Microcytic anemia D50.9 Active 753366816 Problem Other chronic pain G89.29 Active 88816804 Problem 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 Active 93 7714818254 Problem Iron deficiency anemia, unspecified iron deficiency an emia type D50.9 Active 60117933 Problem Constipation, unspecified constipation type K59.00 Active 83434352 Problem 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 rhinitis, unspecified trigger J3 0.2 Active 333052479 Problem Hyperlipidemia, unspecified hyperlipidemia type E7 8.5 Active 65316573 Problem Panlobular emphysema J43.1 Active 3351162 ALLERGIES Allergen (clinical drug ingredient) Drug/Non Drug Allergy do cumented on EMR Reaction Allergy Type Onset Date Status metformin Metformin HCl([facility] Code:[address]-86) stomach upset Drug A llergy Active ENCOUNTERS from 1931 to 2020-02-15 Encounter Location Date Provider Diagnosis [address] [address] Feb, Valeria Varma Essential hypertension I10 IMMUNIZATIONS No Information SOCIAL HISTORY Tobacco Use: [...] ambulation. Tritrate to effect. Please provide ULI. Mishelu for 999 days Oct, Active Omeprazole 20 MG 1 capsule 30 minutes before morning meal Orally Once a day for 30 day(s) Active Omeprazole 20 MG 1 capsule 30 minutes before morning meal Orally On ce a day Not-Taking Aspir-81 Active PROCEDURES No Information RESULTS No Results REASON FOR VISIT Medication Questions/Referral MEDICAL (GENERAL) HISTORY Type Description Date Medical [...] [place] 03/2018 Hospitalization History Pyelonephritis Hospitalization History [facility]- fluid around lungs 10/2019 Goals Section No Information Health Concerns No Information MEDICAL EQUIPMENT No Information MENTAL STATUS No Information FUNCTIONAL STATUS No Information ASSESSMENTS Encounter Date Diagnosis Assessment Notes Treatment Notes Treatm ent Clinical Notes Feb, Essential hypertension (ICD-10 - I10) PLAN OF TREATMENT Medication Medication Name Sig Start Date Stop Date GlipiZIDE ER 5 MG 2 tablet with food Orally Once a day for 90 da ys Next Appt Details Provider Name:Valeriadarin Varma, 09:20:00 AM, [address] [place] [address], [phone], Insurance Providers Payer Name Payer Address Payer Phone Insured Name Patient Relati onship to Insured Coverage Start Date Coverage End Date [facility] MEDICAID ANCILLARY SVC [facility] [address] [facility] [phone] rFancesca RamirezA - MEDICARE [place] [address] [facility] [address] [phone] Francesca Ramirez [facility] OPTIONS [facility] [address] [facility] [phone] Francesca Ramirez - [employer] MEDICARE DIVISION [address] [facility] 139[address] Francesca Ramirez
--- OUTSIDE RECORDS SUMMARY | 2020-05-03 18:58 | CCD ---
Author Author [facility] Organization [facility] Address Unknown Phone Unavailable Care Team Providers Care Rd Project Manager Name Role Phone Valeria Varma Unavailable PROBLEMS Type Condition ICD9-CM Code AZV39-OR Code Onset Dates Condition S tatus SNOMED Code Notes Problem Other cataract of right eye H26.8 Active 1935 21774 Problem Squamous cell carcinoma C44.92 Active 43357354 7 Problem Type 2 diabetes mellitus wit hout complication, without long-term current use of insulin E11.9 Active 054529604 Problem Gastroesophageal reflux disease, esophagitis pre sence not specified K21.9 Active 121887286 Problem Unsteadiness on feet R26.81 Active 80573658 Problem Essential hypertension I10 Active 59181623 Problem History of SCC (squamous cell carcinoma) of skin Z 85.828 Active 687731113 Problem Other specified cataract H26.8 Active 8935044 09 Problem Gastroesophageal reflux disease without esophagitis K21.9 Active 138291328 Problem Arthritis M19.90 Active 9858952 Problem Dementia without behavioral disturbance, unspeci fied dementia type F03.90 Active 88665818 Problem Microcytic anemia D50.9 Active 946506245 Problem Other chronic pain G89.29 Active 21159965 Problem 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 Active 93 9382846546 Problem Iron deficiency anemia, unspecified iron deficiency an emia type D50.9 Active 18747476 Problem Constipation, unspecified constipation type K59.00 Active 08445251 Problem 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 rhinitis, unspecified trigger J3 0.2 Active 863647519 Problem Hyperlipidemia, unspecified hyperlipidemia type E7 8.5 Active 64883082 Problem Panlobular emphysema J43.1 Active 4329345 ALLERGIES Allergen (clinical drug ingredient) Drug/Non Drug Allergy do cumented on EMR Reaction Allergy Type Onset Date Status metformin Metformin HCl([facility] Code:[address]-05) stomach upset Drug A llergy Active ENCOUNTERS from 1931 to 2020-02-28 Encounter Location Date Provider Diagnosis [address] [address] Feb, Valeriailsa Varma IMMUNIZATIONS No Information SOCIAL [...] [place] 03/2018 Hospitalization History Pyelonephritis Hospitalization History [facility]- fluid around lungs 10/2019 Goals Section [...] Appt Details Provider Name:Valeria Varma, 09:20:00 AM, [address] [place] [address], [phone], Insurance Providers Payer Name Payer Address Payer Phone Insured Name Patient Relati onship to Insured Coverage Start Date Coverage End Date [facility] [employer] [address] [facility] [address] Francesca Ramirez [facility] [address] [facility] [id number] Francesca Ramirez [facility] - MEDICAID [facility] [facility] [address] [facility] [id number] Francesca Ramirez [facility] [place] [address] [facility] [id number] Francesca Ramirez
--- OUTSIDE RECORDS SUMMARY | 2020-05-03 19:00 | CCD ---
Author Author [facility] Organization [facility] Address Unknown Phone Unavailable Care Team Providers Care Tie Bucker Name Role Phone ARCHANA, MANN MOHAMMAD Unavailable Unavailable ARCHANA, MANN MOHAMMAD Unavailable Unavailable ARCHANA, MANN MOHAMMAD Unavailable Unavailable ARCHANA, MANN MOHAMMAD Unavailable Unavailable ARCHANA, MANN MOHAMMAD Unavailable Unavailable ARCHANA, MANN MOHAMMAD Unavailable Unavailable ARCHANA, MANN MOHAMMAD Unavailable Unavailable ARCHANA, MANN MOHAMMAD Unavailable Unavailable ARCHANA, MANN MOHAMMAD Unavailable Unavailable ARCHANA, MANN MOHAMMAD Unavailable Unavailable ARCHANA, MANN MOHAMMAD Unavailable Unavailable ARCHANA, MANN MOHAMMAD Unavailable Unavailable ARCHANA, MANN MOHAMMAD Unavailable Unavailable ARCHANA, MANN MOHAMMAD Unavailable Unavailable ARCHANA, MANN MOHAMMAD Unavailable Unavailable ARCHANA, MANN MOHAMMAD Unavailable Unavailable ARCHANA, MANN MOHAMMAD Unavailable Unavailable JODIE EATON PA Unavailable Unavailable JODIE EATON Unavailable Unavailable JODIE EATON PA Unavailable Unavailable JODIE EATON PA Unavailable Unavailable JODIE EATON PA Unavailable Unavailable JODIE EATON PA Unavailable Unavailable JOIDE EATON PA Unavailable Unavailable PETROFF, JODIE PA Unavailable Unavailable VADIM, L ZACH PA Unavailable Unavailable VADIM, L ZACH PA Unavailable Unavailable VADIM, L ZACH PA Unavailable Unavailable VADIM, L ZACH PA Unavailable Unavailable VADIM, L ZACH PA Unavailable Unavailable VADIM, L ZACH PA Unavailable Unavailable VADIM, L ZACH PA Unavailable Unavailable VADIM, L ZACH PA Unavailable Unavailable VADIM, L ZACH PA Unavailable Unavailable VADIM, L ZACH PA Unavailable Unavailable VADIM, L ZACH PA Unavailable Unavailable VADIM, L ZACH PA Unavailable Unavailable VADIM, L ZACH PA Unavailable Unavailable VADIM, L ZACH PA Unavailable Unavailable VADIM, L ZACH PA Unavailable Unavailable VADIM, L ZACH PA Unavailable Unavailable VADIM, L ZACH PA Unavailable Unavailable VADIM, L ZACH PA Unavailable Unavailable VADIM, L ZACH PA Unavailable Unavailable ALIX JR, MORALES Unavailable [phone] ALIX JR, MORALES Unavailable [phone] AILX JR, MORALES Unavailable [phone] Yandel Keyes MD Unavailable Unavailable BARBARA, @ [facility] Unavailable Unavailable KRASNIAK, L MARILIA BIRD Unavailable Unavailable KRASNIAK, L MARILIA BIRD Unavailable Unavailable KRASNIAK, L MARILIA BIRD Unavailable Unavailable KRASNIAK, L MARILIA BIRD Unavailable Unavailable KRASNIAK, L MARILIA BIRD Unavailable Unavailable KRASNIAK, L MARILIA Unavailable Unavailable KRASNIAK, L MARILIA BIRD Unavailable Unavailable KRASNIAK, L MARILIA BIRD Unavailable Unavailable KRASNIAK, L MARILIA BIRD Unavailable Unavailable KRASNIAK, L MARILIA BIRD Unavailable Unavailable KRASNIAK, L MARILIA BIRD Unavailable Unavailable KRASNIAK, L MARILIA BIRD Unavailable Unavailable KRASNIAK, L MARILIA BIRD Unavailable Unavailable KRASNIAK, L MARILIA BIRD Unavailable Unavailable KRASNIAK, L MARILIA BIRD Unavailable Unavailable KRASNIAK, L MARILIA BIRD Unavailable Unavailable KRASNIAK, L MARILIA Unavailable Unavailable KRASNIAK, L MARILIA Unavailable Unavailable KRASNIAK, L MARILIA Unavailable Unavailable KRASNIAK, L MARILIA MD Unavailable Unavailable KRASNIAK, L MARILIA Unavailable Unavailable KRASNIAK, L MARILIA MD Unavailable Unavailable KRASNIAK, L MARILIA Unavailable Unavailable KRASNIAK, L MARILIA Unavailable Unavailable KRASNIAK, L MARILIA Unavailable Unavailable KRASNIAK, L MARILIA Unavailable Unavailable KRASNIAK, L MARILIA Unavailable Unavailable KRASNIAK, L MARILIA BIRD Unavailable Unavailable KRASNIAK, L MARILIA BIRD Unavailable Unavailable KRASNIAK, L MARILIA Unavailable Unavailable KRASNIAK, L MARILIA BIRD Unavailable Unavailable Kerry COLE MD Unavailable Unavailable Kerry COLE MD Unavailable Unavailable Kerry COLE MD Unavailable Unavailable Kerry COLE MD Unavailable Unavailable Kerry COLE MD Unavailable Unavailable Kerry COLE MD Unavailable Unavailable Kerry COLE MD Unavailable Unavailable Kerry COLE MD Unavailable Unavailable Kerry COLE MD Unavailable Unavailable Kerry COLE MD Unavailable Unavailable Kerry COLE MD Unavailable Unavailable Kerry COEL MD Unavailable Unavailable Kerry COLE MD Unavailable Unavailable Kerry COLE MD Unavailable Unavailable Kerry COLE MD Unavailable Unavailable Kerry COLE MD Unavailable Unavailable Kerry COLE MD Unavailable Unavailable Kerry COLE MD Unavailable Unavailable Kerry COLE MD Unavailable Unavailable Kerry COLE MD Unavailable Unavailable Kerry COLE MD Unavailable Unavailable Kerry COLE MD Unavailable Unavailable Kerry COLE MD Unavailable Unavailable Kerry COLE MD Unavailable Unavailable Kerry COLE MD Unavailable Unavailable Kerry COLE MD Unavailable Unavailable Kerry COLE MD Unavailable Unavailable Kerry COLE MD Unavailable Unavailable Kerry COLE MD Unavailable Unavailable Kerry COLE MD Unavailable Unavailable Kerry COLE MD Unavailable Unavailable Kerry COLE MD Unavailable Unavailable Kerry COLE MD Unavailable Unavailable Kerry COLE MD Unavailable Unavailable Kerry COLE MD Unavailable Unavailable Kerry COLE MD Unavailable Unavailable Kerry COLE MD Unavailable Unavailable Kerry COLE MD Unavailable Unavailable Kerry COLE MD Unavailable Unavailable Kerry COLE MD Unavailable Unavailable Kerry COLE MD Unavailable Unavailable Kerry COLE MD Unavailable Unavailable Kerry COLE MD Unavailable Unavailable Kerry COLE MD Unavailable Unavailable Kerry COLE MD Unavailable Unavailable Kerry COLE MD Unavailable Unavailable Kerry COLE MD Unavailable Unavailable Kerry COLE MD Unavailable Unavailable Kerry COLE MD Unavailable Unavailable Kerry COLE MD Unavailable Unavailable Kerry COLE MD Unavailable Unavailable Kerry COLE MD Unavailable Unavailable Kerry COLE MD Unavailable Unavailable Kerry COLE MD Unavailable Unavailable Kerry COLE MD Unavailable Unavailable Kerry COLE MD Unavailable Unavailable Kerry COLE MD Unavailable Unavailable Kerry COLE MD Unavailable Unavailable Kerry COLE MD Unavailable Unavailable Kerry COLE MD Unavailable Unavailable Kerry COLE MD Unavailable Unavailable Kerry COLE MD Unavailable Unavailable Kerry COLE MD Unavailable Unavailable Kerry COLE MD Unavailable Unavailable Kerry COLE MD Unavailable Unavailable Kerry COLE MD Unavailable Unavailable Kerry COLE MD Unavailable Unavailable Kerry COLE MD Unavailable Unavailable Kerry COLE MD Unavailable Unavailable Kerry COLE MD Unavailable Unavailable Kerry COLE MD Unavailable Unavailable Ingram, Sae PA Unavailable Unavailable Ingram, Sae PA Unavailable Unavailable Ingram, Sae PA Unavailable Unavailable Ingram, Sae PA Unavailable Unavailable Ingram, Sae PA Unavailable Unavailable Ingram, Sae PA Unavailable Unavailable Ingram, Sae PA Unavailable Unavailable Ingram, Sae PA Unavailable Unavailable Ingram, Sae PA Unavailable Unavailable Ingram, Sae PA Unavailable Unavailable Ingram, Sae PA Unavailable Unavailable Ingram, Sae PA Unavailable Unavailable Minh NIELSEN MD Unavailable Unavailable Minh NIELSEN MD Unavailable Unavailable Minh NIELSEN MD Unavailable Unavailable Minh NIELSEN MD Unavailable Unavailable Minh NIELSEN MD Unavailable Unavailable Minh NIELSEN MD Unavailable Unavailable Minh NIELSEN MD Unavailable Unavailable Minh NIELSEN MD Unavailable Unavailable Minh NIELSEN MD Unavailable Unavailable Minh NIELSEN MD Unavailable Unavailable Minh NIELSEN MD Unavailable Unavailable Minh NIELSEN MD Unavailable Unavailable Minh NIELSEN MD Unavailable Unavailable Kojo, A Latha RECEIVER DISPATCHER Unavailable Unavailable Kojo, A Latha RECEIVER DISPATCHER Unavailable Unavailable Kojo, A Latha RECEIVER DISPATCHER Unavailable Unavailable Kojo, A Latha RECEIVER DISPATCHER Unavailable Unavailable Kojo, A Latha RECEIVER DISPATCHER Unavailable Unavailable Kojo, A Latha RECEIVER DISPATCHER Unavailable Unavailable Kojo, A Latha RECEIVER DISPATCHER Unavailable Unavailable Kojo, A Latha RECEIVER DISPATCHER Unavailable Unavailable Kojo, A Latha RECEIVER DISPATCHER Unavailable Unavailable Kojo, A Latha RECEIVER DISPATCHER Unavailable Unavailable Kojo, A Latha RECEIVER DISPATCHER Unavailable Unavailable Kojo, A Latha RECEIVER DISPATCHER Unavailable Unavailable Kojo, A Latha RECEIVER DISPATCHER Unavailable Unavailable Kojo, A Latha RECEIVER DISPATCHER Unavailable Unavailable Kojo, A Latha RECEIVER DISPATCHER Unavailable Unavailable Kojo, A Latha RECEIVER DISPATCHER Unavailable Unavailable Kojo, A Latha RECEIVER DISPATCHER Unavailable Unavailable Kojo, A Latha RECEIVER DISPATCHER Unavailable Unavailable Kojo, A Latha RECEIVER DISPATCHER Unavailable Unavailable Kojo, A Latha RECEIVER DISPATCHER Unavailable Unavailable Kojo, A Latha RECEIVER DISPATCHER Unavailable Unavailable Kojo, A Latha RECEIVER DISPATCHER Unavailable Unavailable Kojo, A Latha RECEIVER DISPATCHER Unavailable Unavailable Kojo, A Latha RECEIVER DISPATCHER Unavailable Unavailable Kojo, A Latha RECEIVER DISPATCHER Unavailable Unavailable Kojo, A Latha RECEIVER DISPATCHER Unavailable Unavailable Kojo, A Latha RECEIVER DISPATCHER Unavailable Unavailable Kojo, A Latha RECEIVER DISPATCHER Unavailable Unavailable Kojo, A Latha RECEIVER DISPATCHER Unavailable Unavailable Kojo, A Latha RECEIVER DISPATCHER Unavailable Unavailable Kojo, A Latha RECEIVER DISPATCHER Unavailable Unavailable Kojo, A Latha RECEIVER DISPATCHER Unavailable Unavailable Kojo, A Latha RECEIVER DISPATCHER Unavailable Unavailable Kojo, A Latha RECEIVER DISPATCHER Unavailable Unavailable Kojo, A Latha RECEIVER DISPATCHER Unavailable Unavailable Kojo, A Latha RECEIVER DISPATCHER Unavailable Unavailable Kojo, A Latha RECEIVER DISPATCHER Unavailable Unavailable Kojo, A Latha RECEIVER DISPATCHER Unavailable Unavailable Kojo, A Latha RECEIVER DISPATCHER Unavailable Unavailable Kojo, A Latha RECEIVER DISPATCHER Unavailable Unavailable Kojo, A Latha RECEIVER DISPATCHER Unavailable Unavailable Okjo, A Latha RECEIVER DISPATCHER Unavailable Unavailable Kojo, A Latha RECEIVER DISPATCHER Unavailable Unavailable Kojo, A Latha RECEIVER DISPATCHER Unavailable Unavailable Morales Orozco MD Unavailable Unavailable Morales Orozco MD Unavailable Unavailable Morales Orozco MD Unavailable Unavailable Morales Orozco MD Unavailable Unavailable Morales Orozco MD Unavailable Unavailable Morales Orozco MD Unavailable Unavailable Morales Orozco MD Unavailable Unavailable Morales Orozco MD Unavailable Unavailable Morales Orozco MD Unavailable Unavailable Morales Orozco MD Unavailable Unavailable Morales Orozco MD Unavailable Unavailable Morales Orozco MD Unavailable Unavailable Morales Orozco MD Unavailable Unavailable Morales Orozco MD Unavailable Unavailable Morales Orozco MD Unavailable Unavailable Morales Orozco MD Unavailable Unavailable Morales Orozco MD Unavailable Unavailable Morales Orozco MD Unavailable Unavailable Morales Orozco MD Unavailable Unavailable Morales Orozco MD Unavailable Unavailable Morales Orozco MD Unavailable Unavailable Morales Orozco MD Unavailable Unavailable Morales Orozco MD Unavailable Unavailable Morales Orozco MD Unavailable Unavailable Morales Orozco MD Unavailable Unavailable Morales Orozco MD Unavailable Unavailable Morales Orozco MD Unavailable Unavailable Morales Orozco MD Unavailable Unavailable Morales Orozco MD Unavailable Unavailable Morales Orozco MD Unavailable Unavailable Morales Orozco MD Unavailable Unavailable Morales Orozco MD Unavailable Unavailable Morales Orozco MD Unavailable Unavailable Morales Orozco MD Unavailable Unavailable Morales Orozco MD Unavailable Unavailable Morales Orozco MD Unavailable Unavailable Morales Orozco MD Unavailable Unavailable Morales Orozco MD Unavailable Unavailable Morales Orozco MD Unavailable Unavailable Morales Orozco MD Unavailable Unavailable Morales Orozco MD Unavailable Unavailable Morales Orozco MD Unavailable Unavailable Morales Orozco MD Unavailable Unavailable Morales Orozco MD Unavailable Unavailable Morales Orozco MD Unavailable Unavailable Morales Orozco MD Unavailable Unavailable Morales Orozco MD Unavailable Unavailable Morales Orozco MD Unavailable Unavailable Morales Orozco MD Unavailable Unavailable Morales Orozco MD Unavailable Unavailable Morales Orozco MD Unavailable Unavailable Morales Orozco MD Unavailable Unavailable Morales Orozco MD Unavailable Unavailable Morales Orozco MD Unavailable Unavailable Morales Orozco MD Unavailable Unavailable Morales Orozco MD Unavailable Unavailable Morales Orozco MD Unavailable Unavailable Morales Orozco MD Unavailable Unavailable Morales Orozco MD Unavailable Unavailable Morales Orozco MD Unavailable Unavailable Morales Orozco MD Unavailable Unavailable Morales Orozco MD Unavailable Unavailable Dany Rocha MD Unavailable Unavailable Dany Rocha MD Unavailable Unavailable Dany Rocha MD Unavailable Unavailable Dany Rocha MD Unavailable Unavailable Dany Rocha MD Unavailable Unavailable Dany Rocha MD Unavailable Unavailable Dany Rocha MD Unavailable Unavailable Dany Rocha MD Unavailable Unavailable Dany Rocha MD Unavailable Unavailable Efrainbek-Dany Shah MD Unavailable Unavailable EfrainbekDany Cage MD Unavailable Unavailable Efrainbek-Dany Shah MD Unavailable Unavailable Efrainbek-Dany Shah MD Unavailable Unavailable Efrainbek-Dany Shah MD Unavailable Unavailable Efrainbek-Dany Shah MD Unavailable Unavailable EfrainbekDany Cage MD Unavailable Unavailable Efrainbek-Dany Shah MD Unavailable Unavailable Dombek-Dany Shah MD Unavailable Unavailable Dombek-LangDany MD Unavailable Unavailable Dombek-Dany Shah MD Unavailable Unavailable Efrainbek-Dany Shah MD Unavailable Unavailable Efrainbek-Dany Shah MD Unavailable Unavailable Dombek-Dany Shah MD Unavailable Unavailable Efrainbek-Dany Shah MD Unavailable Unavailable EfrainbekDany Cage MD Unavailable Unavailable EfrainbekDany Cage MD Unavailable Unavailable EfrainbekDany Cage MD Unavailable Unavailable Efrainbek-Dany Shah MD Unavailable Unavailable EfrainbekDany Cage MD Unavailable Unavailable EfrainbekDany Cage MD Unavailable Unavailable EfrainbekDany Cage MD Unavailable Unavailable EfrainbekDany Cage MD Unavailable Unavailable EfrainbekDany Caeg MD Unavailable Unavailable EfrainbekDany Cage MD Unavailable Unavailable Dany Rocha MD Unavailable Unavailable EfrainbekDany Cage MD Unavailable Unavailable Kerry DUARTE MD Unavailable Unavailable Kerry DUARTE MD Unavailable Unavailable Kerry DUARTE MD Unavailable Unavailable Kerry DUARTE MD Unavailable Unavailable Kerry DUARTE MD Unavailable Unavailable Kerry DUARTE MD Unavailable Unavailable Kerry DUARTE MD Unavailable Unavailable Kerry DUARTE MD Unavailable Unavailable Kerry DUARTE MD Unavailable Unavailable Kerry DUARTE MD Unavailable Unavailable Kerry DUARTE MD Unavailable Unavailable Kerry DUARTE MD Unavailable Unavailable Kerry DUARTE MD Unavailable Unavailable Kerry DUARTE MD Unavailable Unavailable Kerry DUARTE MD Unavailable Unavailable Kerry DUARTE MD Unavailable Unavailable Kerry DUARTE MD Unavailable Unavailable Kerry DUARTE MD Unavailable Unavailable Kerry DUARTE MD Unavailable Unavailable Kerry DUARTE MD Unavailable Unavailable Kerry DUARTE MD Unavailable Unavailable Kerry DUARTE MD Unavailable Unavailable Kerry DUARTE MD Unavailable Unavailable Kerry DUARTE MD Unavailable Unavailable Kerry DUARTE MD Unavailable Unavailable Kerry DUARTE MD Unavailable Unavailable Kerry DUARTE MD Unavailable Unavailable Kerry DUARTE MD Unavailable Unavailable Kerry DUARTE MD Unavailable Unavailable Kerry DUARTE MD Unavailable Unavailable Kerry DUARTE MD Unavailable Unavailable Kerry DUARTE MD Unavailable Unavailable Kerry DUARTE MD Unavailable Unavailable Kerry DUARTE MD Unavailable Unavailable Kerry DUARTE MD Unavailable Unavailable Kerry DUARTE MD Unavailable Unavailable Kerry DUARTE MD Unavailable Unavailable Kerry DUARTE MD Unavailable Unavailable Kerry DUARTE MD Unavailable Unavailable Kerry DUARTE MD Unavailable Unavailable Kerry DUARTE MD Unavailable Unavailable Kerry DUARTE MD Unavailable Unavailable Kerry DUARTE MD Unavailable Unavailable Kerry DUARTE MD Unavailable Unavailable Kerry DUARTE MD Unavailable Unavailable Mitch, M Latha PA-C Unavailable Unavailable Mitch, M Latha PA-C Unavailable Unavailable Mitch, M Latha PA-C Unavailable Unavailable Mitch, M Latha PA-C Unavailable Unavailable Mitch, M Latha PA-C Unavailable Unavailable Mitch, M Latha PA-C Unavailable Unavailable Mitch, M Latha PA-C Unavailable Unavailable Mitch, M Latha PA-C Unavailable Unavailable Mitch, M Latha PA-C Unavailable Unavailable Mitch, M Latha PA-C Unavailable Unavailable Mitch, M Latha PA-C Unavailable Unavailable Mitch, M Latha PA-C Unavailable Unavailable Mitch, M Latha PA-C Unavailable Unavailable Mitch, M Latha PA-C Unavailable Unavailable Mitch, M Latha PA-C Unavailable Unavailable Mitch, M Latha PA-C Unavailable Unavailable Mitch, M Latha PA-C Unavailable Unavailable Mitch, M Latha PA-C Unavailable Unavailable Mitch, M Latha PA-C Unavailable Unavailable Mitch, M Latha PA-C Unavailable Unavailable Mitch, M Latha PA-C Unavailable Unavailable Mitch, M Latha PA-C Unavailable Unavailable Mitch, M Latha PA-C Unavailable Unavailable Amira, L Berna BREWING TECHNICIAN Unavailable Unavailable Amira, L Berna BREWING TECHNICIAN Unavailable Unavailable [place], L Berna BREWING TECHNICIAN Unavailable Unavailable Amira, L Berna BREWING TECHNICIAN Unavailable Unavailable [place], L Berna BREWING TECHNICIAN Unavailable Unavailable Amira, L Berna BREWING TECHNICIAN Unavailable Unavailable [place], L Berna BREWING TECHNICIAN Unavailable Unavailable [place], L Berna BREWING TECHNICIAN Unavailable Unavailable Amira, L Berna BREWING TECHNICIAN Unavailable Unavailable [place], L Berna BREWING TECHNICIAN Unavailable Unavailable [place], L Berna BREWING TECHNICIAN Unavailable Unavailable Amira, L Berna BREWING TECHNICIAN Unavailable Unavailable [place], L Berna BREWING TECHNICIAN Unavailable Unavailable [place], L Berna BREWING TECHNICIAN Unavailable Unavailable [place], L Berna BREWING TECHNICIAN Unavailable Unavailable [place], L Berna BREWING TECHNICIAN Unavailable Unavailable Amira, L Berna BREWING TECHNICIAN Unavailable Unavailable [place], L Berna BREWING TECHNICIAN Unavailable Unavailable Amira, L Berna BREWING TECHNICIAN Unavailable Unavailable Amira, L Berna BREWING TECHNICIAN Unavailable Unavailable Amira, L Berna BREWING TECHNICIAN Unavailable Unavailable Amira, L Berna BREWING TECHNICIAN Unavailable Unavailable Amira, L Berna BREWING TECHNICIAN Unavailable Unavailable [place], L Berna BREWING TECHNICIAN Unavailable Unavailable Amira, L Berna BREWING TECHNICIAN Unavailable Unavailable [place], L Berna BREWING TECHNICIAN Unavailable Unavailable [place], L Berna BREWING TECHNICIAN Unavailable Unavailable Amira, L Berna BREWING TECHNICIAN Unavailable Unavailable [place], L Berna BREWING TECHNICIAN Unavailable Unavailable [place], L Berna BREWING TECHNICIAN Unavailable Unavailable [place], L Berna BREWING TECHNICIAN Unavailable Unavailable [place], L Berna BREWING TECHNICIAN Unavailable Unavailable ALIASES , DEFAULT / GENERIC / UNKNOWN PROVIDER * Unavailable Unavailable ALIASES , DEFAULT / GENERIC / UNKNOWN PROVIDER * Unavailable Unavailable ALIASES , DEFAULT / GENERIC / UNKNOWN PROVIDER * Unavailable Unavailable ALIASES , DEFAULT / GENERIC / UNKNOWN PROVIDER * Unavailable Unavailable ALIASES , DEFAULT / GENERIC / UNKNOWN PROVIDER * Unavailable Unavailable ALIASES , DEFAULT / GENERIC / UNKNOWN PROVIDER * Unavailable Unavailable ALIASES , DEFAULT / GENERIC / UNKNOWN PROVIDER * Unavailable Unavailable ALIASES , DEFAULT / GENERIC / UNKNOWN PROVIDER * Unavailable Unavailable ALIASES , DEFAULT / GENERIC / UNKNOWN PROVIDER * Unavailable Unavailable ALIASES , DEFAULT / GENERIC / UNKNOWN PROVIDER * Unavailable Unavailable ALIASES , DEFAULT / GENERIC / UNKNOWN PROVIDER * Unavailable Unavailable ALIASES , DEFAULT / GENERIC / UNKNOWN PROVIDER * Unavailable Unavailable ALIASES , DEFAULT / GENERIC / UNKNOWN PROVIDER * Unavailable Unavailable ALIASES , DEFAULT / GENERIC / UNKNOWN PROVIDER * Unavailable Unavailable ALIASES , DEFAULT / GENERIC / UNKNOWN PROVIDER * Unavailable Unavailable ALIASES , DEFAULT / GENERIC / UNKNOWN PROVIDER * Unavailable Unavailable ALIASES , DEFAULT / GENERIC / UNKNOWN PROVIDER * Unavailable Unavailable ALIASES , DEFAULT / GENERIC / UNKNOWN PROVIDER * Unavailable Unavailable ALIASES , DEFAULT / GENERIC / UNKNOWN PROVIDER * Unavailable Unavailable ALIASES , DEFAULT / GENERIC / UNKNOWN PROVIDER * Unavailable Unavailable ALIASES , DEFAULT / GENERIC / UNKNOWN PROVIDER * Unavailable Unavailable ALIASES , DEFAULT / GENERIC / UNKNOWN PROVIDER * Unavailable Unavailable ALIASES , DEFAULT / GENERIC / UNKNOWN PROVIDER * Unavailable Unavailable ALIASES , DEFAULT / GENERIC / UNKNOWN PROVIDER * Unavailable Unavailable ALIASES , DEFAULT / GENERIC / UNKNOWN PROVIDER * Unavailable Unavailable ALIASES , DEFAULT / GENERIC / UNKNOWN PROVIDER * Unavailable Unavailable ALIASES , DEFAULT / GENERIC / UNKNOWN PROVIDER * Unavailable Unavailable ALIASES , DEFAULT / GENERIC / UNKNOWN PROVIDER * Unavailable Unavailable ALIASES , DEFAULT / GENERIC / UNKNOWN PROVIDER * Unavailable Unavailable ALIASES , DEFAULT / GENERIC / UNKNOWN PROVIDER * Unavailable Unavailable ALIASES , DEFAULT / GENERIC / UNKNOWN PROVIDER * Unavailable Unavailable ALIASES , DEFAULT / GENERIC / UNKNOWN PROVIDER * Unavailable Unavailable ALIASES , DEFAULT / GENERIC / UNKNOWN PROVIDER * Unavailable Unavailable ALIASES , DEFAULT / GENERIC / UNKNOWN PROVIDER * Unavailable Unavailable ALIASES , DEFAULT / GENERIC / UNKNOWN PROVIDER * Unavailable Unavailable ALIASES , DEFAULT / GENERIC / UNKNOWN PROVIDER * Unavailable Unavailable ALIASES , DEFAULT / GENERIC / UNKNOWN PROVIDER * Unavailable Unavailable ALIASES , DEFAULT / GENERIC / UNKNOWN PROVIDER * Unavailable Unavailable ALIASES , DEFAULT / GENERIC / UNKNOWN PROVIDER * Unavailable Unavailable ALIASES , DEFAULT / GENERIC / UNKNOWN PROVIDER * Unavailable Unavailable ALIASES , DEFAULT / GENERIC / UNKNOWN PROVIDER * Unavailable Unavailable ALIASES , DEFAULT / GENERIC / UNKNOWN PROVIDER * Unavailable Unavailable ALIASES , DEFAULT / GENERIC / UNKNOWN PROVIDER * Unavailable Unavailable ALIASES , DEFAULT / GENERIC / UNKNOWN PROVIDER * Unavailable Unavailable ALIASES , DEFAULT / GENERIC / UNKNOWN PROVIDER * Unavailable Unavailable ALIASES , DEFAULT / GENERIC / UNKNOWN PROVIDER * Unavailable Unavailable ALIASES , DEFAULT / GENERIC / UNKNOWN PROVIDER * Unavailable Unavailable ALIASES , DEFAULT / GENERIC / UNKNOWN PROVIDER * Unavailable Unavailable ALIASES , DEFAULT / GENERIC / UNKNOWN PROVIDER * Unavailable Unavailable ALIASES , DEFAULT / GENERIC / UNKNOWN PROVIDER * Unavailable Unavailable ALIASES , DEFAULT / GENERIC / UNKNOWN PROVIDER * Unavailable Unavailable ALIASES , DEFAULT / GENERIC / UNKNOWN PROVIDER * Unavailable Unavailable ALIASES , DEFAULT / GENERIC / UNKNOWN PROVIDER * Unavailable Unavailable MONROY SR, LAYO EDWARDS MD Unavailable Unavailable MONROY SR, LAYO EDWARDS MD Unavailable Unavailable MONROY SR, LAYO EDWARDS MD Unavailable Unavailable MONROY SR, LAYO EDWARDS MD Unavailable Unavailable MONROY SR, LAYO EDWARDS MD Unavailable Unavailable MONROY SR, LAYO EDWARDS MD Unavailable Unavailable MONROY SR, LAYO EDWARDS MD Unavailable Unavailable MONROY SR, LAYO EDWARDS MD Unavailable Unavailable MONROY SR, LAYO EDWARDS MD Unavailable Unavailable MONROY SR, LAYO EDWARDS MD Unavailable Unavailable MONROY SR, LAYO EDWARDS MD Unavailable Unavailable MONROY SR, LAYO EDWARDS MD Unavailable Unavailable MONROY SR, LAYO EDAWRDS MD Unavailable Unavailable MONROY SR, LAYO EDWARDS MD Unavailable Unavailable MONROY SR, LAYO EDWARDS MD Unavailable Unavailable MONROY SR, LAYO EDWARDS MD Unavailable Unavailable MONROY SR, LAYO EDWARDS MD Unavailable Unavailable MONROY SR, LAYO EDWARDS MD Unavailable Unavailable MONROY SR, LAYO EDWARDS MD Unavailable Unavailable MONROY SR, LAYO EDWARDS MD Unavailable Unavailable MONROY SR, LAYO EDWARDS MD Unavailable Unavailable MONROY SR, LAYO EDWARDS MD Unavailable Unavailable MONROY SR, LAYO EDWARDS MD Unavailable Unavailable MONROY SR, LAYO EDWARDS MD Unavailable Unavailable MONROY SR, LAYO EDWARDS MD Unavailable Unavailable MONROY SR, LAYO EDWARDS MD Unavailable Unavailable MONROY SR, LAYO EDWARDS MD Unavailable Unavailable MONROY SR, LAYO EDWARDS MD Unavailable Unavailable MONROY SR, LAYO EDWARDS MD Unavailable Unavailable MONROY SR, LAYO EDWARDS MD Unavailable Unavailable MONROY SR, LAYO EDWARDS MD Unavailable Unavailable MONROY SR, LAYO EDWARDS MD Unavailable Unavailable MONROY SR, LAYO EDWARDS MD Unavailable Unavailable MONROY SR, LAYO EDWARDS MD Unavailable Unavailable MONROY SR, LAYO EDWARDS MD Unavailable Unavailable MONROY SR, LAYO EDWARDS MD Unavailable Unavailable MONROY SR, LAYO EDWARDS MD Unavailable Unavailable MONROY SR, LAYO EDWARDS MD Unavailable Unavailable MONROY SR, LAYO EDWARDS MD Unavailable Unavailable MONROY SR, LAYO EDWARDS MD Unavailable Unavailable MONROY SR, LAYO EDWARDS MD Unavailable Unavailable MONROY SR, LAYO EDWARDS MD Unavailable Unavailable MONROY SR, LAYO EDWARDS MD Unavailable Unavailable MONROY SR, LAYO EDWARDS MD Unavailable Unavailable MONROY SR, LAYO EDWARDS MD Unavailable Unavailable MONROY SR, LAYO EDWARDS MD Unavailable Unavailable MONROY SR, LAYO EDWARDS MD Unavailable Unavailable MONROY SR, LAYO EDWARDS MD Unavailable Unavailable MONROY SR, LAYO EDWARDS MD Unavailable Unavailable MONROY SR, LAYO EDWARDS MD Unavailable Unavailable MONROY SR, LAYO EDWARDS MD Unavailable Unavailable MONROY SR, LAYO EDWARDS MD Unavailable Unavailable MONROY SR, LAYO EDWARDS MD Unavailable Unavailable MONROY SR, LAYO EDWARDS MD Unavailable Unavailable ALIX JR, AIDE NIELSEN Unavailable Unavailable BLACK, AIDE AMOS Unavailable Unavailable MATILDA, YOVANA BIRD Unavailable Unavailable MATILDA, YOVANA BIRD Unavailable Unavailable MATILDA, YOVANA BIRD Unavailable Unavailable MATILDA, YOVANA BIRD Unavailable Unavailable MATILDA, YOVANA BIRD Unavailable Unavailable MATILDA, YOVANA BIRD Unavailable Unavailable MATILDA, YOVANA BIRD Unavailable Unavailable MATILDA, YOVANA BIRD Unavailable Unavailable MATILDA, YOVANA BIRD Unavailable Unavailable MATILDA, YOVANA BIRD Unavailable Unavailable MATILDA, YOVANA BIRD Unavailable Unavailable MATILDA, YOVANA BIRD Unavailable Unavailable MATILDA, YOVANA BIRD Unavailable Unavailable MATILDA, YOVANA BIRD Unavailable Unavailable MATILDA, YOVANA BIRD Unavailable Unavailable MATILDA, YOVANA BIRD Unavailable Unavailable MATILDA, YOVANA BIRD Unavailable Unavailable MATILDA, YOVANA BIRD Unavailable Unavailable MATILDA, YOVANA BIRD Unavailable Unavailable MATILDA, YOVANA BIRD Unavailable Unavailable MATILDA, YOVANA BIRD Unavailable Unavailable MATILDA, YOVANA BIRD Unavailable Unavailable MATILDA, YOVANA BIRD Unavailable Unavailable MATILDA, YOVANA BIRD Unavailable Unavailable MATILDA, YOVANA BIRD Unavailable Unavailable MATILDA, YOVANA BIRD Unavailable Unavailable MATILDA, YOVANA BIRD Unavailable Unavailable MATILDA, YOVANA BIRD Unavailable Unavailable MATILDA, YOVANA BIRD Unavailable Unavailable MATILDA, YOVANA BIRD Unavailable Unavailable MATILDA, YOVANA BIRD Unavailable Unavailable MATILDA, YOVANA BIRD Unavailable Unavailable MATILDA, YOVANA BIRD Unavailable Unavailable MATILDA, YOVANA BIRD Unavailable Unavailable MATILDA, YOVANA BIRD Unavailable Unavailable MATILDA, YOVANA BIRD Unavailable Unavailable MATILDA, YOVANA BIRD Unavailable Unavailable MATILDA, YOVANA BIRD Unavailable Unavailable MATILDA, YOVANA BIRD Unavailable Unavailable MATILDA, YOVANA BIRD Unavailable Unavailable MATILDA, YOVANA BIRD Unavailable Unavailable MATILDA, YOVANA BIRD Unavailable Unavailable MATILDA, YOVANA BIRD Unavailable Unavailable MATILDA, YOVANA BIRD Unavailable Unavailable MATILDA, YOVANA BIRD Unavailable Unavailable MATILDA, YOVANA BIRD Unavailable Unavailable MATILDA, YOVANA BIRD Unavailable Unavailable MATILDA, YOVANA BIRD Unavailable Unavailable MATILDA, YOVANA BIRD Unavailable Unavailable MATILDA, YOVANA BIRD Unavailable Unavailable MATILDA, YOVANA BIRD Unavailable Unavailable MATILDA, YOVANA BIRD Unavailable Unavailable MATILDA, YOVANA BIRD Unavailable Unavailable MATILDA, YOVANA BIRD Unavailable Unavailable Minh JOYCE Unavailable Unavailable Minh JOYCE Unavailable Unavailable Minh JOYCE Unavailable Unavailable JOYCE, W DENISE PA Unavailable Unavailable JOYCE, W DENISE PA Unavailable Unavailable JOYCE, W DENISE PA Unavailable Unavailable JOYCE, W DENISE PA Unavailable Unavailable JOYCE, W DENISE PA Unavailable Unavailable JOYCE, W DENISE PA Unavailable Unavailable JOYCE, W DENISE PA Unavailable Unavailable JOYCE, W DENISE PA Unavailable Unavailable JOYCE, W DENISE PA Unavailable Unavailable JOYCE, W DENISE PA Unavailable Unavailable MATILDA, YOVANA MD Unavailable Unavailable MATILDA, YOVANA BIRD Unavailable Unavailable MATILDA, YOVANA BIRD Unavailable Unavailable MATILDA, YOVANA BIRD Unavailable Unavailable MATILDA, YOVANA BIRD Unavailable Unavailable MATILDA, YOVANA BIRD Unavailable Unavailable MATILDA, YOVANA BIRD Unavailable Unavailable MATILDA, YOVANA BIRD Unavailable Unavailable MATILDA, YOVANA BIRD Unavailable Unavailable MATILDA, YOVANA BIRD Unavailable Unavailable MATILDA, YOVANA BIRD Unavailable Unavailable MATILDA, YOVANA BIRD Unavailable Unavailable MATILDA, YOVANA BIRD Unavailable Unavailable MATILDA, YOVANA BIRD Unavailable Unavailable MATILDA, YOVANA BIRD Unavailable Unavailable MATILDA, YOVANA BIRD Unavailable Unavailable MATILDA, YOVANA BIRD Unavailable Unavailable MATILDA, YOVANA BIRD Unavailable Unavailable MATILDA, YOVANA BIRD Unavailable Unavailable MATILDA, YOVANA BIRD Unavailable Unavailable MATILDA, YOVANA BIRD Unavailable Unavailable MATILDA, YOVANA BIRD Unavailable Unavailable MATILDA, YOVANA BIRD Unavailable Unavailable MATILDA, YOVANA BIRD Unavailable Unavailable MATILDA, YOVANA BIRD Unavailable Unavailable MATILDA, YOVANA BIRD Unavailable Unavailable MATILDA, YOVANA BIRD Unavailable Unavailable MATILDA, YOVANA BIRD Unavailable Unavailable MATILDA, YOVANA BIRD Unavailable Unavailable MATILDA, YOVANA BIRD Unavailable Unavailable MATILDA, YOVANA BIRD Unavailable Unavailable MATILDA, YOVANA BIRD Unavailable Unavailable MATILDA, YOVANA BIRD Unavailable Unavailable MATILDA, YOVANA BIRD Unavailable Unavailable MATILDA, YOVANA BIRD Unavailable Unavailable MATILDA, YOVANA BIRD Unavailable Unavailable MATILDA, YOVANA BIRD Unavailable Unavailable MATILDA, YOVANA BIRD Unavailable Unavailable MATILDA, YOVANA BIRD Unavailable Unavailable MATILDA, YOVANA BIRD Unavailable Unavailable MATILDA, YOVANA BIRD Unavailable Unavailable MATILDA, YOVANA BIRD Unavailable Unavailable MATILDA, YOVANA BIRD Unavailable Unavailable MATILDA, YOVANA BIRD Unavailable Unavailable MATILDA, YOVANA BIRD Unavailable Unavailable MATILDA, YOVANA BIRD Unavailable Unavailable MATILDA, YOVANA BIRD Unavailable Unavailable MATILDA, YOVANA BIRD Unavailable Unavailable MATILDA, YOVANA BIRD Unavailable Unavailable MATILDA, YOVANA BIRD Unavailable Unavailable MATILDA, YOVANA BIRD Unavailable Unavailable MATILDA, YOVANA BIRD Unavailable Unavailable MATILDA, YOVANA BIRD Unavailable Unavailable MATILDA, YOVANA BIRD Unavailable Unavailable Koki Black DO Unavailable Unavailable Koki Black DO Unavailable Unavailable Koki Black DO Unavailable Unavailable Koki Black DO Unavailable Unavailable Koki Black DO Unavailable Unavailable Koki Black DO Unavailable Unavailable Koki Black DO Unavailable Unavailable Black, B Higinio DO Unavailable Unavailable Black, B Higinio DO Unavailable Unavailable Black, B Higinio DO Unavailable Unavailable Black, B Higinio DO Unavailable Unavailable Black, B Higinio DO Unavailable Unavailable Black, B Higinio DO Unavailable Unavailable Black, B Higinio DO Unavailable Unavailable Black, B Higinio DO Unavailable Unavailable Re-disclosure Warning The records that you are about to access may contain information from federally-assisted alcohol or drug abuse programs. If such information is present, then the following federally mandated warning applies: This information has been disclosed to you from records protected by federal confidentiality rules (42 CFR part 2). The federal rules prohibit you from making any further disclosure of this information unless further disclosure is expressly permitted by the written consent of the person to whom it pertains or as otherwise permitted by 42 CFR part 2. A general authorization for the release of medical or other information is NOT sufficient for this purpose. The Federal rules restrict any use of the information to criminally investigate or prosecute any alcohol or drug abuse patient.The records that you are about to access may contain highly sensitive health information, the redisclosure of which is protected by Article 27-F of the [facility] Public Health law. If you continue you may have access to information: Regarding HIV / AIDS; Provided by facilities licensed or operated by the [facility] Office of Mental Health; or Provided by the [facility] Office for People With Developmental Disabilities. If such information is present, then the following [facility] mandated warning applies: This information has been disclosed to you from confidential records which are protected by state law. State law prohibits you from making any further disclosure of this information without the specific written consent of the person to whom it pertains, or as otherwise permitted by law. Any unauthorized further disclosure in violation of state law may result in a fine or assisted sentence or both. A general authorization for the release of medical or other information is NOT sufficient authorization for further disc losure. Allergies and Adverse Reactions Type Description Substance Reaction Status Data Source(s ) Propensity to adverse reactions METFORMIN AND RELATED Metformin And Related Active [facility] Drug allergy No Known Allergies No Known Allergies [facility] Drug allergy Metformin HCl Metformin stomach upset Active eCW1 ([facility]) Drug allergy Drug allergy NKDA MEDENT ([facility] Family History Family Member Name Family Member Gender Family Member Status Date o f Status Description Data Source(s) Unknown Female Problem [facility] ([facility] Unknown Female Problem [facility] Unknown Female Problem [facility] ([facility]) Unknown Female Problem MEDENT ([facility]) Encounters Encounter Providers Location Date Indications Data Source(s ) Outpatient [facility] 05/02/2020 12:00:00 AM EST eCW1 ([facility]) Outpatient [facility] 05/01/2020 12:00:00 AM EST eCW1 ([facility]) Outpatient [facility] 05/01/2020 12:00:00 AM EST eCW1 ([facility]) Outpatient [facility] 04/27/2020 12:00:00 AM EST eCW1 ([facility]) Outpatient [facility] 04/22/2020 12:00:00 AM EST eCW1 ([facility]) Outpatient [facility] 04/19/2020 12:00:00 AM EST eCW1 ([facility]) Outpatient Attender: Latha STORMCReferrer: Latha Brown [facility] 04/18/2020 11:13:00 AM EST - 04/18/2020 11:13:00 AM EST [facility] Outpatient [facility] 04/18/2020 12:00:00 AM EST eCW1 ([facility]) Outpatient [facility] 04/18/2020 12:00:00 AM EST eCW1 ([facility]) Outpatient Attender: Latha HOWARD 04/17/2020 09:39 :00 AM EST [facility] Outpatient [facility] 04/17/2020 12:00:00 AM EST eCW1 ([facility]) Outpatient [facility] 04/17/2020 12:00:00 AM EST eCW1 ([facility]) Outpatient [facility] 04/17/2020 12:00:00 AM EST eCW1 ([facility]) Outpatient Attender: YOVANA GREY [facility] 09:17:00 AM EST - 04/13/2020 09:18:00 AM EST [id number] [facility] [id number] Patient discharged. Outpatient Attender: YOVANA HERRERASJAnnie.GVR 12:00:00 AM [facility] - 04/13/2020 10:09:31 AM EST [facility] Outpatient Attender: Latha HOWARD 03/29/2020 08:00 :00 AM [facility] Admission cancelled. Disregard status an d admitted date. Outpatient Attender: YOVANA HERRERASJAnnie.GVR 12:00:00 AM EST - 03/23/2020 10:26:33 AM EST [facility] Outpatient [facility] 02/28/2020 12:00:00 AM EST eCW1 ([facility]) Outpatient [facility] 02/28/2020 12:00:00 AM EST eCW1 ([facility]) Outpatient Attender: Latha WOODP 02/25/2020 12:00 :00 PM [facility] Outpatient [facility] 02/17/2020 12:00:00 AM EST eCW1 ([facility]) Outpatient Attender: Latha HOWARD 02/15/2020 08:41 :00 AM [facility] Outpatient [facility] 02/15/2020 12:00:00 AM EST eCW1 ([facility]) Outpatient [facility] 02/15/2020 12:00:00 AM EST eCW1 ([facility]) Outpatient [facility] 02/03/2020 12:00:00 AM EST eCW1 ([facility]) Outpatient [facility] 01/25/2020 12:00:00 AM EST eCW1 ([facility]) Outpatient Attender: Latha HOWARD 01/24/2020 03:07 :00 PM [facility] Outpatient [facility] 01/24/2020 12:00:00 AM EST eCW1 ([facility]) Inpatient Attender: Higinio SMITH ttender: HIGINIO BLACKAdmitter: HIGINIO BLACKReferrer: Latha WOODP EMERGENCY ROOM-2N 01/22/2020 04:2 0:00 PM EST - 01/25/2020 01:05:00 PM [facility] Patient discharged. Inpatient Attender: Higinio SMITH ttender: HIGINIO BLACKAttender: JODIE EATON PAAdmitter: HIGINIO BLACKReferrer: Latha Kojo [facility] EM[facility]GENCY [facility]-2N 01/21/2020 05:57:00 PM EST - 01/22/2020 04:19:00 PM [facility] Patient discharged. Outpatient Attender: Berna Collier [facility] 01/21/2020 02:34:00 PM EST [facility] Outpatient [facility] 01/21/2020 12:00:00 AM EST eCW1 ([facility]) Office Visit Attender: Morales Orozco MD [facility] 08/2019 02:15:00 PM EDT MEDENT ([facility] Outpatient [facility] 12/17/2019 12:00:00 AM EDT eCW1 ([facility]) Emergency Attender: Sae Ingram PAReferrer: Jessica Brown [facility] EM[facility]GENCY [facility]-ER 12/09/2019 04:40:00 PM EDT - 12/09/2019 11:00:00 PM EDT [facility] Patient discharged. Outpatient [facility] 12/08/2019 12:00:00 AM EDT eCW1 ([facility]) Outpatient Attender: ASHLEY JIMENEZ 12/02/2019 01:46:0 0 PM EDT [facility] Outpatient Attender: JERRY MONROY SR 11/25/2019 09:30:00 AM EDT [facility] Outpatient [facility] 11/25/2019 12:00:00 AM EDT eCW1 ([facility]) Outpatient [facility] 11/10/2019 12:00:00 AM EDT eCW1 ([facility]) Inpatient Attender: ANNA Landrum nder: LAYO NIELSEN MDAdmitter: Morales Orozco MDConsultant: SINGH DUARTE MD 11/08/2019 12:17:00 AM EDT - 11/10/2019 08:00:00 PM EDT LEUKOCYTOSIS, AFIB, HYPOXIA [facility] LEUKOCYTOSIS, AFIB, HYPOXIA Patient discharged. Outpatient Attender: Morales Orozco MD [facility] 08:30:00 AM EDT MEDENT ([facility] Outpatient Attender: SINGH DUARTE MD [facility] 11/03/2019 03:00:00 PM EDT MEDENT ([facility]) Outpatient [facility] 11/01/2019 12:00:00 AM EDT eCW1 ([facility]) Outpatient Attender: JERRY MONROY SRReferrer: Jessica Brown [facility] 10/28/2019 07:37:00 AM EDT - 10/28/2019 07:37:00 AM EDT [facility] Outpatient [facility] 10/28/2019 12:00:00 AM EDT eCW1 ([facility]) Preadmit Attender: Morales Orozco MDAdmitter: Morales brewer MD 10/16/2019 02:30:00 PM EDT EDEMA R60.[address] [facility] EDEMA R60.9 Inpatient Attender: DEFAULT / GENE KENDRA / UNKNOWN PROVIDER ALIASES Attender: CHICA COLE MDAttender: Yandel Keyes MD 10/14/2019 09:45:00 PM EDT - 10/15/2019 07:09:00 PM EDT NEW ONSET A-FIB [facility] NEW ONSET A-FIB Patient discharged. Outpatient Attender: Morales Orozco MDAdmitter: Morales brewer MD 10/05/2019 01:30:00 PM EDT - 10/15/2019 11:59:00 PM EDT EDEMA [facility] EDEMA Patient discharged. Outpatient Attender: Morales [facility] 08/2019 10:00:00 AM EDT MEDENT ([facility] Outpatient Attender: Morales Orozco MDAdmitter: Morales brewer MD 09/07/2019 03:22:00 PM EDT - 09/07/2019 03:23:00 PM EDT E11.9,I10,E78.00 [facility] E11.9,I10,E78.00 Patient discharged. Outpatient Attender: Morales [facility] 10:45:00 AM EDT MEDENT ([facility] 08/24/2019 12:00:00 AM EDT eCW1 ([facility]) Outpatient Attender: Latha Meyer PA-C 08/06/2019 10:20 :00 AM EDT [facility] Admission cancelled. Disregard status an d admitted date. Outpatient Attender: Latha Brown FNPReferrer: Latha HOWARD EMERGENCY ROOM-RIVI 08/06/2019 09:41:00 AM EDT - 08/06/2019 09:41:00 AM EDT [facility] Admission cancelled. Disregard status an d admitted date. [facility] 08/06/2019 12:00:00 AM EDT eCW1 ([facility]) Outpatient Attender: Latha Meyer PA-C 07/23/2019 10:28 :00 AM EDT [facility] C ENTER 07/23/2019 12:00:00 AM EDT eCW1 ([facility]) [facility] 06/10/2019 12:00:00 AM EDT eCW1 ([facility]) [facility] 05/20/2019 12:00:00 AM EST eCW1 ([facility]) [facility]. 04/26/2019 08:08:11 AM EST [facility] CLINIC Attender: MARILIA [email or web address]-[email or web address] 03/31/2019 12:00: 00 AM EST [facility] CLINIC LAURIBRosaES-LAURIB. 03/29/2019 02:26:43 PM EST [facility] Outpatient Attender: Latha HOWARD 02/18/2019 10:41 :00 AM [facility] Outpatient Attender: Latha Brown FNPReferrer: Latha HOWARD EMERGENCY ROOM-LAB 02/18/2019 09:44:00 AM EST - 02/18/2019 09:44:00 AM [facility] Emergency Attender: ZACH FIERRO PAReferrer: Mya calvilloith Kojo [facility] EMERGENCY [facility]-ER 07/06/2018 05:50:00 PM EDT - 07/06/2018 11:45:00 PM [facility] Emergency Attender: MORALES THOMSON JR Attender: MORALES THOMSON JRReferrer: Lathadarin Brown [facility] EM[facility]GENCY [facility]-ER 09/20/2017 10:27:00 PM EDT - 09/21/2017 01:50:00 AM [facility] Outpatient Attender: Latha Mackayotte [facility] EMERGENCY ROOM-LA B 07/28/2017 03:14:00 PM EDT - 07/28/2017 03:14:00 PM [facility] Inpatient Attender: DENISE JOYCE PAAdmitter: Eliza Rocha MD EMERGENCY ROOM-2N 02/26/2017 05:33:00 PM EST - 02/27/2017 04:00:00 PM [facility] Functional Status Medications Medication Brand Name Start Date Product Form Dose Route Admi nistrative Instructions Pharmacy Instructions Status Indications Reaction Description Data Source(s) physical therapy eval and tx - UNK 05/01/2020 12:00:00 AM EST active physical therapy eval and tx - eCW1 ([facility]) physical therapy eval and tx - UNK 05/01/2020 12:00:00 AM EST active physical therapy eval and tx - eCW1 ([facility]) physical therapy eval and tx - UNK 05/01/2020 12:00:00 AM EST active physical therapy eval and tx - eCW1 ([facility]) 20 mg 04/19/2020 12:00:00 AM EST tablet 45 TAKE 1 TABLET BY MOUTH EVERY DAY IN THE MORNING AND 1/2 TABLET IN THE AFTERNOON NEEDED TAKE 1 TABLET BY MOUTH EVERY DAY IN THE MORNING AND 1/2 TABLET IN THE AFTERNOON NEEDED SOLD: 04/19/2020 [facility] 25 mg 04/19/2020 12:00:00 AM EST tablet 90 TAKE ONE TABLET BY MOUTH EVERY DAY TAKE ONE TABLET BY MOUTH EVERY DAY SOLD: 04/19/2020 [facility] torsemide 20 MG Oral Tablet Torsemide 20 MG Torsemide 20 MG 04/18/2020 12:00:00 AM EST active Torsemide 20 MG e CW1 ([facility]) empagliflozin 25 MG Oral Tablet [Jardiance] Jardiance 25 MG Jardiance 25 MG 04/18/2020 12:00:00 AM EST 1.0 {tablet} active Jardiance 25 MG eCW1 ([facility]) empagliflozin 25 MG Oral Tablet [Jardiance] Jardiance 25 MG Jardiance 25 MG 04/18/2020 12:00:00 AM EST 1.0 {tablet} active Jardiance 25 MG eCW1 ([facility]) empagliflozin 25 MG Oral Tablet [Jardiance] Jardiance 25 MG Jardiance 25 MG 04/18/2020 12:00:00 AM EST 1.0 {tablet} active Jardiance 25 MG eCW1 ([facility]) torsemide 20 MG Oral Tablet Torsemide 20 MG Torsemide 20 MG 04/18/2020 12:00:00 AM EST active Torsemide 20 MG e CW1 ([facility]) torsemide 20 MG Oral Tablet Torsemide 20 MG Torsemide 20 MG 04/18/2020 12:00:00 AM EST active Torsemide 20 MG e CW1 ([facility]) empagliflozin 25 MG Oral Tablet [Jardiance] Jardiance 25 MG Jardiance 25 MG 04/18/2020 12:00:00 AM EST 1.0 {tablet} active Jardiance 25 MG eCW1 ([facility]) empagliflozin 25 MG Oral Tablet [Jardiance] Jardiance 25 MG Jardiance 25 MG 04/18/2020 12:00:00 AM EST 1.0 {tablet} active Jardiance 25 MG eCW1 ([facility]) torsemide 20 MG Oral Tablet Torsemide 20 MG Torsemide 20 MG 04/18/2020 12:00:00 AM EST active Torsemide 20 MG e CW1 ([facility]) torsemide 20 MG Oral Tablet Torsemide 20 MG Torsemide 20 MG 04/18/2020 12:00:00 AM EST active Torsemide 20 MG e CW1 ([facility]) empagliflozin 25 MG Oral Tablet [Jardiance] Jardiance 25 MG Jardiance 25 MG 04/18/2020 12:00:00 AM EST 1.0 {tablet} active Jardiance 25 MG eCW1 ([facility]) empagliflozin 25 MG Oral Tablet [Jardiance] Jardiance 25 MG Jardiance 25 MG 04/18/2020 12:00:00 AM EST 1.0 {tablet} active Jardiance 25 MG eCW1 ([facility]) torsemide 20 MG Oral Tablet Torsemide 20 MG Torsemide 20 MG 04/18/2020 12:00:00 AM EST active Torsemide 20 MG e CW1 ([facility]) empagliflozin 25 MG Oral Tablet [Jardiance] Jardiance 25 MG Jardiance 25 MG 04/18/2020 12:00:00 AM EST 1.0 {tablet} active Jardiance 25 MG eCW1 ([facility]) torsemide 20 MG Oral Tablet Torsemide 20 MG Torsemide 20 MG 04/18/2020 12:00:00 AM EST active Torsemide 20 MG e CW1 ([facility]) empagliflozin 25 MG Oral Tablet [Jardiance] Jardiance 25 MG Jardiance 25 MG 04/18/2020 12:00:00 AM EST 1.0 {tablet} active Jardiance 25 MG eCW1 ([facility]) torsemide 20 MG Oral Tablet Torsemide 20 MG Torsemide 20 MG 04/18/2020 12:00:00 AM EST active Torsemide 20 MG e CW1 ([facility]) torsemide 20 MG Oral Tablet Torsemide 20 MG Torsemide 20 MG 04/18/2020 12:00:00 AM EST active Torsemide 20 MG e CW1 ([facility]) Prevalon Heel Protector - Prevalon Heel Protector - 04/17/2020 1 2:00:00 AM EST active Prevalon Heel Pr otector - eCW1 ([facility]) Medical Compression Stockings - Medical Compression Stocking s - 04/17/2020 12:00:00 AM EST active Medical Compression Stockings - eCW1 ([facility]) Prevalon Heel Protector - Prevalon Heel Protector - 04/17/2020 1 2:00:00 AM EST active Prevalon Heel Pr otector - eCW1 ([facility]) Medical Compression Stockings - Medical Compression Stocking s - 04/17/2020 12:00:00 AM EST active Medical Compression Stockings - eCW1 ([facility]) Medical Compression Stockings - Medical Compression Stocking s - 04/17/2020 12:00:00 AM EST active Medical Compression Stockings - eCW1 ([facility]) Medical Compression Stockings - Medical Compression Stocking s - 04/17/2020 12:00:00 AM EST active Medical Compression Stockings - eCW1 ([facility]) Medical Compression Stockings - Medical Compression Stocking s - 04/17/2020 12:00:00 AM EST active Medical Compression Stockings - eCW1 ([facility]) Prevalon Heel Protector - Prevalon Heel Protector - 04/17/2020 1 2:00:00 AM EST active Prevalon Heel Pr otector - eCW1 ([facility]) Medical Compression Stockings - Medical Compression Stocking s - 04/17/2020 12:00:00 AM EST active Medical Compression Stockings - eCW1 ([facility]) Medical Compression Stockings - Medical Compression Stocking s - 04/17/2020 12:00:00 AM EST active Medical Compression Stockings - eCW1 ([facility]) Medical Compression Stockings - Medical Compression Stocking s - 04/17/2020 12:00:00 AM EST active Medical Compression Stockings - eCW1 ([facility]) Medical Compression Stockings - Medical Compression Stocking s - 04/17/2020 12:00:00 AM EST active Medical Compression Stockings - eCW1 ([facility]) Prevalon Heel Protector - Prevalon Heel Protector - 04/17/2020 1 2:00:00 AM EST active Prevalon Heel Pr otector - eCW1 ([facility]) Prevalon Heel Protector - Prevalon Heel Protector - 04/17/2020 1 2:00:00 AM EST active Prevalon Heel Pr otector - eCW1 ([facility]) Prevalon Heel Protector - Prevalon Heel Protector - 04/17/2020 1 2:00:00 AM EST active Prevalon Heel Pr otector - eCW1 ([facility]) Medical Compression Stockings - Medical Compression Stocking s - 04/17/2020 12:00:00 AM EST active Medical Compression Stockings - eCW1 ([facility]) Prevalon Heel Protector - Prevalon Heel Protector - 04/17/2020 1 2:00:00 AM EST active Prevalon Heel Pr otector - eCW1 ([facility]) Medical Compression Stockings - Medical Compression Stocking s - 04/17/2020 12:00:00 AM EST active Medical Compression Stockings - eCW1 ([facility]) Prevalon Heel Protector - Prevalon Heel Protector - 04/17/2020 1 2:00:00 AM EST active Prevalon Heel Pr otector - eCW1 ([facility]) Prevalon Heel Protector - Prevalon Heel Protector - 04/17/2020 1 2:00:00 AM EST active Prevalon Heel Pr otector - eCW1 ([facility]) Prevalon Heel Protector - Prevalon Heel Protector - 04/17/2020 1 2:00:00 AM EST active Prevalon Heel Pr otector - eCW1 ([facility]) Prevalon Heel Protector - Prevalon Heel Protector - 04/17/2020 1 2:00:00 AM EST active Prevalon Heel Pr otector - eCW1 ([facility]) 20-100 mcg/actuation 04/14/2020 12:00:00 AM EST mist 12 INHALE ONE PUFF BY MOUTH FOUR TIMES A DAY INHALE ONE PUFF BY MOUTH FOUR TIMES A DAY SOLD: 04/14/2020 [facility] Metolazone 2.5 MG Oral Tablet metolazone (ZAROXOLYN) 2 .5 MG tablet metolazone (ZAROXOLYN) 2.5 MG tablet 04/13/2020 12:00:00 AM EST 2.5 mg Oral active Edema, unspecified type Take 1 tablet (2.5 mg total) by mout h every other day [facility] Edema, unspecified type Enalapril Maleate 20 MG Oral Tablet enalapril (VASOTEC ) 20 MG tablet enalapril (VASOTEC) 20 MG tablet 04/13/2020 12:00:00 AM EST 20 mg Oral active Take 1 tablet (20 mg total) by mouth daily [facility] 2.5 mg 04/13/2020 12:00:00 AM EST tablet 45 TAKE 1 TABLET BY MOUTH ONCE EVERY OTHER DAY (TAKE 30-60 MINUTES PRIOR TO FUROSEMIDE) TAKE 1 TABLET BY MOUTH ONCE EVERY OTHER DAY (TAKE 30-60 MINUTES PRIOR TO FUROSEMIDE) SOLD: 04/14/2020 [facility] 20 mg 02/29/2020 12:00:00 AM EST capsule,delayed release (DR/EC) 90 TAKE 1 CAPSULE BY MOUTH EVERY DAY 30 MINUTES BEFORE MORNING MEAL TAKE 1 CAPSULE BY MOUTH EVERY DAY 30 MINUTES BEFORE MORNING MEAL SOLD: 03/01/2020 [facility] 20 mg 02/29/2020 12:00:00 AM EST tablet 180 TAKE ONE TABLET BY MOUTH TWICE A DAY TAKE ONE TABLET BY MOUTH TWICE A DAY SOLD: 03/01/2020 [facility] 20 mg 02/29/2020 12:00:00 AM EST tablet 180 TAKE ONE TABLET BY MOUTH TWICE A DAY TAKE ONE TABLET BY MOUTH TWICE A DAY SOLD: 03/01/2020 [facility] 180 mg 02/29/2020 12:00:00 AM EST capsule,ext.rel 24h deg radable 90 TAKE ONE CAPSULE BY MOUTH EVERY DAY TAKE ONE CAPSULE BY MOUTH EVERY DAY SOLD: 03/01/2020 [facility] 10 mg 02/29/2020 12:00:00 AM EST tablet 90 TAKE ONE TABLET BY MOUTH EVERY DAY TAKE ONE TABLET BY MOUTH EVERY DAY SOLD: 03/01/2020 [facility] carvedilol 6.25 MG Oral Tablet CARVEDILOL 02/28/2020 12:00:00 AM EST tablet 180 TAKE ONE TABLET BY MOUTH TWICE A DAY WITH FOOD TAKE ON E TABLET BY MOUTH TWICE A DAY WITH FOOD SOLD: 03/01/2020 [facility] 5 mg 02/16/2020 12:00:00 AM EST tablet extended release 24hr 180 TAKE TWO TABLETS BY MOUTH EVERY DAY WITH FOOD TAKE TWO TABLETS BY MOUTH EVERY DAY WITH FOOD SOLD: 02/17/2020 [facility] 20 mg 02/04/2020 12:00:00 AM EST tablet 60 TAKE ONE TABLET BY MOUTH TWICE A DAY TAKE ONE TABLET BY MOUTH TWICE A DAY SOLD: 02/04/2020 [facility] ferrous gluconate 324 MG Oral Tablet Ferrous Gluconate 08/2019 12:00:00 AM EDT ORAL active [facility] ([facility]) Omeprazole 40 MG Delayed Release Oral Capsule Omeprazole 12/21/2019 12:00:00 AM EDT ORAL active [facility] ([facility] rivaroxaban 20 MG Oral Tablet [Xarelto] XARELTO 20 MG TABS X ARELTO 20 MG TABS 12/18/2019 12:00:00 AM EDT 20 mg Oral aborted Take 20 mg by mouth daily [facility] 20 mg 12/09/2019 12:00:00 AM EDT tablet 60 TAKE ONE TABLET BY MOUTH TWICE A DAY TAKE ONE TABLET BY MOUTH TWICE A DAY SOLD: 12/09/2019 [facility] Furosemide 20 MG Oral Tablet Furosemide* Furosemide* 06:41:00 PM EDT 40 MG ORAL active [facility] Furosemide 20 MG Oral Tablet Furosemide* Furosemide* 020 06:41:00 PM EDT 40 MG ORAL active [facility] [facility] Cefuroxime 250 MG Oral Tablet Cefuroxime Axetil Cefuroxime A xetil 11/10/2019 06:40:00 PM EDT 250 MG ORAL active [facility] Cefuroxime 250 MG Oral Tablet Cefuroxime Axetil Cefuroxime A xetil 11/10/2019 06:40:00 PM EDT 250 MG ORAL active [facility] oxygen concentrator UNK 11/10/2019 12:00:00 AM EDT active oxygen concentrator eCW1 ([facility]) Cefuroxime 250 MG Oral Tablet [Ceftin] Ceftin 11/10/2019 12:00:00 AM EDT ORAL completed MED[facility] ([facility] oxygen concentrator UNK 11/10/2019 12:00:00 AM EDT active oxygen concentrator eCW1 ([facility]) oxygen concentrator UNK 11/10/2019 12:00:00 AM EDT active oxygen concentrator eCW1 ([facility]) oxygen concentrator UNK 11/10/2019 12:00:00 AM EDT active oxygen concentrator eCW1 ([facility]) oxygen concentrator UNK 11/10/2019 12:00:00 AM EDT active oxygen concentrator eCW1 ([facility]) oxygen concentrator UNK 11/10/2019 12:00:00 AM EDT active oxygen concentrator eCW1 ([facility]) oxygen concentrator UNK 11/10/2019 12:00:00 AM EDT active oxygen concentrator eCW1 ([facility]) empagliflozin 10 MG Oral Tablet Empagliflozin Empagliflozin 11/08/2019 12:43:00 AM EDT 10 MG ORAL active [facility] empagliflozin 10 MG Oral Tablet Empagliflozin Empagliflozin 11/08/2019 12:43:00 AM EDT 10 MG ORAL active [facility] 20 mg 10/29/2019 12:00:00 AM EDT tablet 30 TAKE ONE TABLET BY MOUTH EVERY DAY TAKE ONE TABLET BY MOUTH EVERY DAY SOLD: 10/29/2019 [facility] Portable oxygen concentrator UNK 10/28/2019 12:00:00 AM EDT active Portable oxygen concentrator eCW1 ([facility]) Portable oxygen concentrator UNK 10/28/2019 12:00:00 AM EDT active Portable oxygen concentrator eCW1 ([facility]) Portable oxygen concentrator UNK 10/28/2019 12:00:00 AM EDT active Portable oxygen concentrator eCW1 ([facility]) Portable oxygen concentrator UNK 10/28/2019 12:00:00 AM EDT active Portable oxygen concentrator eCW1 ([facility]) Portable oxygen concentrator UNK 10/28/2019 12:00:00 AM EDT active Portable oxygen concentrator eCW1 ([facility]) Portable oxygen concentrator UNK 10/28/2019 12:00:00 AM EDT active Portable oxygen concentrator eCW1 ([facility]) Portable oxygen concentrator UNK 10/28/2019 12:00:00 AM EDT active Portable oxygen concentrator eCW1 ([facility]) Portable oxygen concentrator UNK 10/28/2019 12:00:00 AM EDT active Portable oxygen concentrator eCW1 ([facility]) Portable oxygen concentrator UNK 10/28/2019 12:00:00 AM EDT active Portable oxygen concentrator eCW1 ([facility]) Portable oxygen concentrator UNK 10/28/2019 12:00:00 AM EDT active Portable oxygen concentrator eCW1 ([facility]) Portable oxygen concentrator UNK 10/28/2019 12:00:00 AM EDT active Portable oxygen concentrator eCW1 ([facility]) Portable oxygen concentrator UNK 10/28/2019 12:00:00 AM EDT active Portable oxygen concentrator eCW1 ([facility]) Portable oxygen concentrator UNK 10/28/2019 12:00:00 AM EDT active Portable oxygen concentrator eCW1 ([facility]) Portable oxygen concentrator UNK 10/28/2019 12:00:00 AM EDT active Portable oxygen concentrator eCW1 ([facility]) Portable oxygen concentrator UNK 10/28/2019 12:00:00 AM EDT active Portable oxygen concentrator eCW1 ([facility]) Portable oxygen concentrator UNK 10/28/2019 12:00:00 AM EDT active Portable oxygen concentrator eCW1 ([facility]) Portable oxygen concentrator UNK 10/28/2019 12:00:00 AM EDT active Portable oxygen concentrator eCW1 ([facility]) Portable oxygen concentrator UNK 10/28/2019 12:00:00 AM EDT active Portable oxygen concentrator eCW1 ([facility]) Portable oxygen concentrator UNK 10/28/2019 12:00:00 AM EDT active Portable oxygen concentrator eCW1 ([facility]) Portable oxygen concentrator UNK 10/28/2019 12:00:00 AM EDT active Portable oxygen concentrator eCW1 ([facility]) Portable oxygen concentrator UNK 10/28/2019 12:00:00 AM EDT active Portable oxygen concentrator eCW1 ([facility]) Portable oxygen concentrator UNK 10/28/2019 12:00:00 AM EDT active Portable oxygen concentrator eCW1 ([facility]) Portable oxygen concentrator UNK 10/28/2019 12:00:00 AM EDT active Portable oxygen concentrator eCW1 ([facility]) Portable oxygen concentrator UNK 10/28/2019 12:00:00 AM EDT active Portable oxygen concentrator eCW1 ([facility]) Portable oxygen concentrator UN 10/28/2019 12:00:00 AM EDT active Portable oxygen concentrator eCW1 ([facility]) Portable oxygen concentrator [facility] 10/28/2019 12:00:00 AM EDT active Portable oxygen concentrator eCW1 ([facility]) Furosemide 20 MG Oral Tablet Furosemide* Furosemide* 06:15:00 PM EDT 20 MG ORAL completed [facility] Furosemide 20 MG Oral Tablet Furosemide* Furosemide* 06:15:00 PM EDT 20 MG ORAL active [facility] 24 HR Diltiazem Hydrochloride 180 MG Ext ended Release Oral Capsule Diltiazem Cd* Diltiazem Cd* 10/15/2019 06:15:00 PM EDT [facility] D[facility]em [facility]ide 180 MG Ext ended Release Oral Capsule Diltiazem Cd* Diltiazem Cd* 10/15/2019 06:15:00 PM EDT 180 [facility] Diltiazem Hydrochloride 180 MG Ext ended Release Oral Capsule Diltiazem Cd* Diltiazem Cd* 10/15/2019 06:15:00 PM EDT 180 [facility] F[facility] 20 MG Oral Tablet Furosemide* Furosemide* 06:15:00 PM EDT 20 MG ORAL active [facility] 24 HR Diltiazem Hydrochloride 180 MG Ext ended Release Oral Capsule Diltiazem Cd* Diltiazem Cd* 10/15/2019 06:15:00 PM EDT 180 MG ORAL ac [facility] Furosemide 20 MG Oral Tablet Furosemide* Furosemide* 06:15:00 PM EDT 20 MG ORAL active [facility] Furosemide 20 MG Oral Tablet Furosemide* Furosemide* 06:15:00 PM EDT 20 MG ORAL [facility] 24 HR Diltiazem Hydrochloride 180 MG Ext ended Release Oral Capsule Diltiazem Cd* Diltiazem Cd* 10/15/2019 06:15:00 PM EDT 180 [facility] 20 MG Oral Tablet Furosemide* Furosemide* 06:15:00 PM EDT 20 MG ORAL active [facility] 24 HR Diltiazem Hydrochloride 180 MG Ext ended Release Oral Capsule Diltiazem Cd* Diltiazem Cd* 10/15/2019 06:15:00 PM EDT 180 MG ORAL ac tive [facility] rivaroxaban 20 MG Oral Tablet Rivaroxaban* Rivaroxaban* 10/15/2019 06:13:00 PM EDT 20 MG ORAL active [facility] rivaroxaban 20 MG Oral Tablet Rivaroxaban* Rivaroxaban* 10/15/2019 06:13:00 PM EDT 20 MG ORAL active [facility] rivaroxaban 20 MG Oral Tablet Rivaroxaban* Rivaroxaban* 10/15/2019 06:13:00 PM EDT 20 MG ORAL active [facility] rivaroxaban 20 MG Oral Tablet Rivaroxaban* Rivaroxaban* 10/15/2019 06:13:00 PM EDT 20 MG ORAL active [facility] Lisinopril* Lisinopril* 10/15/2019 06:13:00 PM EDT 10 MG ORAL active [facility] rivaroxaban 20 MG Oral Tablet Rivaroxaban* Rivaroxaban* 10/15/2019 06:13:00 PM EDT 20 MG ORAL active [facility] rivaroxaban 20 MG Oral Tablet Rivaroxaban* Rivaroxaban* 10/15/2019 06:13:00 PM EDT 20 MG ORAL active [facility] carvedilol 6.25 MG Oral Tablet Carvedilol* Carvedilol* 10/15/2019 06:11:00 PM EDT 6.25 MG ORAL active [place] [facility] carvedilol 6.25 MG Oral Tablet Carvedilol* Carvedilol* 10/15/2019 06:11:00 PM EDT 6.25 MG ORAL active [facility] carvedilol 6.25 MG Oral Tablet Carvedilol* Carvedilol* 10/15/2019 06:11:00 PM EDT 6.25 MG ORAL active [facility] carvedilol 6.25 MG Oral Tablet Carvedilol* Carvedilol* 10/15/2019 06:11:00 PM EDT 6.25 MG ORAL active [facility] carvedilol 6.25 MG Oral Tablet Carvedilol* Carvedilol* 10/15/2019 06:11:00 PM EDT 6.25 MG ORAL [facility]il[facility] 6.25 MG Oral Tablet Carvedilol* Carvedilol* 10/15/2019 06:11:00 PM EDT 6.25 MG ORAL active [facility] [facility] Furosemide 20 MG Oral Tablet Furosemide 08/30/2019 12:00:00 AM EDT ORAL active [facility] ([facility] 25 mg 08/18/2019 12:00:00 AM EDT tablet 90 TAKE ONE TABLET BY MOUTH EVERY MORNING TAKE ONE TABLET BY MOUTH EVERY MORNING SOLD: 08/29/2019 [facility] 100 mg 08/18/2019 12:00:00 AM EDT tablet 90 TAKE ONE TABLET BY MOUTH EVERY DAY TAKE ONE TABLET BY MOUTH EVERY DAY SOLD: 08/29/2019 [facility] Blood Pressure Cuff - Blood Pressure Cuff - 08/06/2019 12:00:00 AM EDT active as directed eCW1 ([facility]) Furosemide 40 MG Oral Tablet Furosemide 40 MG 07/23/2019 12:00:00 AM E DT active 1 tablet eCW1 ([facility]) 40 mg 05/21/2019 12:00:00 AM EST tablet 90 TAKE ONE TABLET BY MOUTH EVERY DAY TAKE ONE TABLET BY MOUTH EVERY DAY SOLD: 08/29/2019 [facility] 20 mg 05/21/2019 12:00:00 AM EST tablet 90 TAKE ONE TABLET BY MOUTH EVERY DAY TAKE ONE TABLET BY MOUTH EVERY DAY SOLD: 08/29/2019 [facility] 20 mg 05/21/2019 12:00:00 AM EST tablet 90 TAKE ONE TABLET BY MOUTH EVERY DAY TAKE ONE TABLET BY MOUTH EVERY DAY SOLD: 05/25/2019 [facility] 10 mg 05/21/2019 12:00:00 AM EST tablet 90 TAKE ONE TABLET BY MOUTH EVERY DAY TAKE ONE TABLET BY MOUTH EVERY DAY SOLD: 08/29/2019 [facility] 10 mg 05/21/2019 12:00:00 AM EST tablet 90 TAKE ONE TABLET BY MOUTH EVERY DAY TAKE ONE TABLET BY MOUTH EVERY DAY SOLD: 05/25/2019 [facility] 40 mg 05/21/2019 12:00:00 AM EST tablet 90 TAKE ONE TABLET BY MOUTH EVERY DAY TAKE ONE TABLET BY MOUTH EVERY DAY SOLD: 05/25/2019 [facility] 25 mg 02/15/2019 12:00:00 AM EST tablet 90 TAKE ONE TABLET BY MOUTH EVERY MORNING TAKE ONE TABLET BY MOUTH EVERY MORNING SOLD: 05/25/2019 [facility] 100 mg 08/01/2018 12:00:00 AM EDT tablet 90 TAKE 1 TABLET BY MOUTH EVERY DAY TAKE 1 TABLET BY MOUTH EVERY DAY SOLD: 05/25/2019 [facility] Atenolol 50 MG Oral Tablet Atenolol* Atenolol* 01/15/2012 07:21: 00 AM EDT 100 MG ORAL completed [facility] Atenolol 50 MG Oral Tablet Atenolol* Atenolol* 01/15/2012 07:21: 00 AM EDT 100 MG ORAL completed [facility] Atenolol 50 MG Oral Tablet Atenolol* Atenolol* 01/15/2012 07:21: 00 AM EDT 100 MG ORAL completed [facility] Atenolol 50 MG Oral Tablet Atenolol* Atenolol* 01/15/2012 07:21: 00 AM EDT 100 MG ORAL completed [facility] Atenolol 50 MG Oral Tablet Atenolol* Atenolol* 01/15/2012 07:21: 00 AM EDT 100 MG ORAL completed [facility] Atenolol 50 MG Oral Tablet Atenolol* Atenolol* 01/15/2012 07:21: 00 AM EDT 100 MG ORAL completed [facility] Amlodipine 10 MG Oral Tablet amLODIPine (NORVASC) 10 M G tablet amLODIPine (NORVASC) 10 MG tablet 5 mg Oral aborted T tricia 5 mg by mouth daily [facility] Atenolol 100 MG Oral Tablet atenolol (TENORMIN) 100 MG tablet atenolol (TENORMIN) 100 MG tablet 100 mg Oral aborted Take 100 mg by mouth daily [facility] Enalapril Maleate 20 MG Oral Tablet enalapril (VASOTEC ) 20 MG tablet enalapril (VASOTEC) 20 MG tablet 20 mg Oral aborted Take 20 mg by mouth 2 (two) times a day [facility] Ranitidine 150 MG Oral Capsule ranitidine (ZANTAC) 150 MG capsule ranitidine (ZANTAC) 150 MG capsule 150 mg Oral aborted Take 150 mg by mouth 2 (two) times a day [facility] Hydrochlorothiazide 25 MG Oral Tablet hy drochlorothiazide (HYDRODIURIL) 25 MG tablet hydrochlorothiazide (HYDRODIURIL) 25 MG tablet 25 mg O ral aborted Take 25 mg by mouth daily [facility] Insurance Providers Payer name Policy type / Coverage type Policy ID Covered alliance party ID Covered alliance party's relationship to olvera Policy Olvera Plan Information MEDICARE [id number] SP [id number] [place] [id number] SP [id number] [facility] OPTIONS [id number] SP [id number] [facility] [id number] S [id number] [place] [id number] S [id number] MEDICAID [id number] [facility] OPTIONS [id number] S [id number] [employer] [employer] [id number] S [id number] [place] [id number] S [id number] MEDICAID [id number] S [id number] [employer] [id number] S [id number] [place] [id number] S [id number] MEDICAID [id number] S [id number] [facility] [id number] S [id number] [place] [id number] S [id number] MEDICAID [id number] S [id number] MEDICAID [id number] Mireya [id number] [facility] [id number] Mireya [id number] MEDICARE [id number] Mireya [id number] [employer] C[employer] OPTIONS [id number] S [id number] MEDICARE [id number] S [id number] MEDICAID [id number] S [id number] [facility]IC[facility] [id number] S [id number] MEDICAID [id number] [facility] [id number] MEDICARE [id number] MEDICAID M [id number] S [id number] AARP O [id number] S [id number] MEDICARE C [id number] S [id number] [employer] OPTIONS UNAVAILABLE UNAVAILABLE MEDICAID [id number] S [id number] [place] [employer] DIV[facility] [id number] S [id number] O UNAVAILABLE UNAVAILA [facility] MEDICARE [id number] SP [id number] MEDICAID [id number] P [id number] MEDICARE B [id number] P [id number] MEDICARE A [id number] P [id number] [facility] AARP [id number] P [id number] 111 MEDICAID [id number] P [id number] MEDICAID [id number] S [id number] MEDICAID [id number] Self [id number] COMMERCIAL GENERIC [id number] Self [id number] MEDICARE [id number] Self [id number] [employer] OPTIONS [id number] S [id number] ANSI-Commercial [id number] ANSI-Medicaid [id number] ANSI-Commercial [id number] ANSI-Medicare Part B [id number] MEDICAID [id number] ANSI-Medicaid [id number] ANSI-Commercial [id number] ANSI-Commercial [id number] ANSI-Medicare Part B [id number] MEDICAID [id number] [facility] [address] [id number] COMMERCIAL GENERIC [id number] Mireya [id number] MEDICARE [id number] Mireya [id number] ANSI-Commercial [id number] ANSI-Medicaid [id number] ANSI-Commercial [id number] ANSI-Medicare Part B [id number] ANSI-Medicare Part B [id number] ANSI-Commercial [id number] [facility] [id number] ANSI-Commercial [id number] MEDICARE B [id number] P [id number] MEDICAID [id number] P [id number] [facility] [id number] [facility] [id number] ANSI-Commercial [id number] [facility] [id number] ANSI-Commercial [id number] [facility] [id number] ANSI-Commercial [id number] ANSI-Medicare Part B [id number] ANSI-Medicare Part B [id number] ANSI-Commercial [id number] ANSI-Commercial [id number] ANSI-Medicaid [id number] ANSI-Medicare Part B [id number] ANSI-Commercial [id number] ANSI-Medicaid [id number] ANSI-Commercial [id number] [facility] MEDICARE DIVISION [id number] S [id number] [place]ICARE - [place] [id number] S [id number] [facility] OPTIONS [id number] S [id number] ANSI-Medicaid [id number] ANSI-Medicare Part B [id number] ANSI-Commercial [id number] ANSI-Commercial [id number] ANSI-Commercial [id number] ANSI-Medicare Part B [id number] ANSI-Medicaid [id number] ANSI-Commercial [id number] MEDICARE A [id number] P [id number] MEDICAID [id number] ASSIGNED MEDICARE (81) [id number] MEDICAID (101) [id number] [facility] [id number] ASSIGNED MEDICARE (81) [id number] 1 [id number] MEDICAID [id number] S [id number] [place] MED[place]ARE DIVISION [id number] S [id number] [place]ICARE [place] [id number] S [id number] [facility] Options Medigap Part B Self Medicare [facility] Medicare Primary Self [employer] [facility] [facility] OPTIONS [id number] Patient [id number] MEDICARE PART A [id number] Patient [id number] [employer] Self [place] Self [facility] INS PLAN [id number] SELF [id number] MEDICARE [id number] SELF [id number] A [id number] A [id number] Problems, Conditions, and Diagnoses Code Display Name Description Problem Type Effective Dates Data Source(s) E10.9 462929939 Diabetes mellitus type 1, contro lled, without complications Problem 04/18/2020 12:00:00 AM EST eCW1 ([facility]) I48.91 Atrial fibrillation Atrial fibrillation [id number] 0 03/23/2020 12:00:00 AM [facility] R60.9 Edema Edema [id number] 03/23/2020 12:00:00 AM ES T [facility] K21.9 GERD (gastroesophageal reflux disease) G ERD (gastroesophageal reflux disease) 17897149 03/23/2020 12:00:00 AM [facility] E11.9 Type 2 diabetes mellitus Type 2 diabetes mellitus 6457 200003/23/2020 12:00:00 AM [facility] E78.5 HLD (hyperlipidemia) HLD (hyperlipidemia) 37432135 03/23/2020 12:00:00 AM [facility] I10 HTN (hypertension) HTN (hypertension) 74797881 12:00:00 AM [facility] Z99.81 [id number] Supplemental oxygen dependent Problem 02/15/2020 12:00:00 AM EST eCW1 ([facility]) D50.9 [id number] Microcytic anemia Problem 01/24/2020 12:00:0 0 AM EST eCW1 ([facility]) J43.1 [id number] Panlobular emphysema Problem 11/10/2019 12:0 0:00 AM EDT eCW1 ([facility]) [id number] Peripheral vascular disease Peripheral vascular diseas e Problem 11/05/2019 12:00:00 AM EDT MEDENT ([facility]. ) 574014976 Gastroesophageal reflux disease Gastroesophageal reflux disease Problem 11/05/2019 12:00:00 AM EDT MEDENT ([facility] 553251054 Paroxysmal atrial fibrillation Paroxysmal atrial fibri llation Problem 11/05/2019 12:00:00 AM EDT MEDENT ([facility]. 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 Problem 08/06/2019 12:00:00 AM EDT eCW1 ([facility]) J30.2 006882416 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, 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 Problem 08/06/2019 12:00:00 AM EDT eCW1 ([facility]) E10.9 Type 1 diabetes mellitus without complic ations TYPE 1 DIABETES MELLITUS WITHOUT COMPLIC Diagnosis 04/18/2020 11:13:00 AM EST [facility] Z99.81 Dependence on supplemental oxygen DEPENDENCE ON SUPPLEMENTAL OXYGEN Diagnosis 04/17/2020 09:39:00 AM [facility] L89.629 Pressure ulcer of left heel, unspecified stage PRESSURE ULCER OF LEFT HEEL, UNSPECIFIED STAGE Diagnosis 04/17/2020 09:39:00 AM [facility] L89.619 Pressure ulcer of right heel, unspecifie d stage PRESSURE ULCER OF RIGHT HEEL, UNSPECIFIED STAGE Diagnosis 04/17/2020 09:39:00 AM [facility] R60.0 Localized edema LOCALIZED EDEMA Diagnosis 04/17/2020 09:3 9:00 AM [facility] E11.9 Type 2 diabetes mellitus without complic ations TYPE 2 DIABETES MELLITUS WITHOUT COMPLICATIONS Diagnosis 04/17/2020 09:39:00 AM [facility] I50.812 CHRONIC RIGHT HEART FAILURE CHRONIC RIGHT HEART FAILUR E Diagnosis 04/17/2020 09:39:00 AM [facility] I11.0 Hypertensive heart disease with heart fa ilure HYPERTENSIVE HEART DISEASE WITH HEART FAILURE Diagnosis 04/17/2020 09:39:00 AM [facility] R60.9 Edema, unspecified Edema, unspecified Diagnosis 09:17:50 AM [facility] K21.9 Gastro-esophageal reflux disease without esophagitis Gastro-esophageal reflux disease without Diagnosis 04/13/2020 09:17:[address] [facility] E11.9 Type 2 diabetes mellitus without complic ations Type 2 diabetes mellitus without complic Diagnosis 04/13/2020 09:17:50 AM [facility] I10 Essential (primary) hypertension Essential (primary) h ypertension Diagnosis 04/13/2020 09:17:50 AM [facility] I48.91 Unspecified atrial fibrillation Unspecified atri al fibrillation Diagnosis 04/13/2020 09:17:50 AM [facility] E78.5 Hyperlipidemia, unspecified Hyperlipidemia, unspecifie d Diagnosis 04/13/2020 09:17:50 AM [facility] R06.02 Shortness of breath SHORTNESS OF BREATH Diagnosis 0 04/13/2020 09:17:00 AM 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 CORRECTION (CU RRENT) USE OF ASPIRIN Diagnosis 01/22/2020 04:20:00 PM [facility] Z87.19 Personal history of other diseases of th e digestive system PERSONAL HISTORY OF OTHER DISEASES OF THE DIGESTIV Diagnosis 01/22/2020 04:20:0 0 PM [facility] Z90.49 Acquired absence of other specified part s of digestive tract ACQUIRED ABSENCE OF OTHER SPECIFIED PARTS OF DIGES Diagnosis 01/22/2020 04:20:0 0 [facility] Z85.3 Personal history of malignant neoplasm o f breast PERSONAL HISTORY OF MALIGNANT NEOPLASM OF BREAST Diagnosis 01/22/2020 04:20:00 PM [facility] Z85.038 Personal history of other malignant neop lasm of large intestine PERSONAL HISTORY OF MALIGNANT NEOPLASM OF LARGE IN Diagnosis 01/22/2020 04:20: 00 PM [facility] I27.20 PULMONARY HYPERTENSION, UNSPECIFIED PULMONARY HY PERTENSION, UNSPECIFIED Diagnosis 01/22/2020 04:20:00 PM [facility] I35.0 Nonrheumatic aortic (valve) stenosis NONRHEUMATI C AORTIC (VALVE) STENOSIS Diagnosis 01/22/2020 04:20:00 PM [facility] E78.5 Hyperlipidemia, unspecified HYPERLIPIDEMIA, UNSPECIFIE D Diagnosis 01/22/2020 04:20:00 PM [facility] I48.91 Unspecified atrial fibrillation UNSPECIFIED ATRI AL FIBRILLATION Diagnosis 01/22/2020 04:20:00 PM [facility] I89.0 Lymphedema, not elsewhere classified LYMPHEDEMA, NOT ELSEWHERE CLASSIFIED Diagnosis 01/22/2020 04:20:00 PM [facility] I50.9 Heart failure, unspecified HEART FAILURE, UNSPECIFIED Diagnosis 01/22/2020 04:20:00 PM [facility] R06.00 Dyspnea, unspecified DYSPNEA, UNSPECIFIED Diagnosis 01/22/2020 04:20:00 PM [facility] R53.1 Weakness WEAKNESS Diagnosis 01/22/2020 04:20:00 PM [facility] Z87.891 Personal history of nicotine dependence PERSONAL HISTORY OF NICOTINE DEPENDENCE Diagnosis 01/21/2020 05:57:00 PM [facility] Z85.828 Personal history of other malignant neop lasm of skin PERSONAL HISTORY OF OTHER MALIGNANT NEOPLASM OF SK Diagnosis 01/21/2020 05:57:00 PM [facility] Z20.828 Contact with and (suspected) exposure to other viral communicable diseases CONTACT W AND EXPOSURE TO OTH VIRAL COMMUNICABLE D Diagnosis 01/21/2020 05:57:00 PM [facility] E11.65 Type 2 diabetes mellitus with hyperglyce austen TYPE 2 DIABETES MELLITUS WITH HYPERGLYCEMIA Diagnosis 01/21/2020 05:57:00 PM [facility] M79.606 Pain in leg, unspecified PAIN IN LEG, UNSPECIFIED Diag nosis 01/21/2020 05:57:00 PM [facility] M79.89 Other specified soft tissue disorders OT HER SPECIFIED SOFT TISSUE DISORDERS Diagnosis 01/21/2020 02:34:00 PM [facility] R06.02 Shortness of breath SHORTNESS OF BREATH Diagnosis 1 03/22/2019 02:34:00 PM [facility] Z79.899 Other 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 computer terminal 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 (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) drug therapy 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) DRUG THERAPY Diagnosis 12/09/2019 04:40:00 PM [facility] Z79.51 FDC (current) use of inhaled stero ids SINTERING PRESS OPERATOR (CURRENT) USE OF INHALED STEROIDS Diagnosis 12/09/2019 04:40:00 PM [facility] Z79.84 CORRECTION (CURRENT) USE OF ORAL HYPOGLYC EMIC DRUGS CORRECTION (CURRENT) USE OF ORAL HYPOGLYCEMIC DRUGS Diagnosis 12/09/2019 04:40:00 PM [facility] E78.00 PURE HYPERCHOLESTEROLEMIA, UNSPECIFIED P URE HYPERCHOLESTEROLEMIA, UNSPECIFIED Diagnosis 12/09/2019 04:40:00 PM [facility] E87.6 Hypokalemia HYPOKALEMIA Diagnosis 12/09/2019 04:40:00 PM [facility] D64.9 Anemia, unspecified ANEMIA, UNSPECIFIED Diagnosis 0 12/09/2019 04:40:00 PM T [facility] F17.210 Nicotine dependence, cigarettes, uncompl icated NICOTINE DEPENDENCE, CIGARETTES, UNCOMPLICATED Diagnosis 12/09/2019 04:40:00 PM EDT [facility] J44.9 Chronic obstructive pulmonary disease, u nspecified CHRONIC OBSTRUCTIVE PULMONARY DISEASE, UNSPECIFIED Diagnosis 12/09/2019 04:40:00 PM EDT [facility] 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 Z87.891 Personal history of nicotine dependence PERSONAL HISTORY OF NICOTINE DEPENDENCE Diagnosis 11/08/2019 12:17:00 AM EDT [facility] Z79.899 Other care home (current) drug therapy O THER CORRECTION (CURRENT) DRUG THERAPY Diagnosis 11/08/2019 12:17:00 AM EDT [facility] F03.90 Unspecified dementia without behavioral disturbance UNSPECIFIED DEMENTIA WITHOUT BEHAVIORAL DISTURBANCE Diagnosis 11/08/2019 12:17:00 AM EDT [facility] R11.2 Nausea with vomiting, unspecified NAUSEA WITH VO MITING, UNSPECIFIED Diagnosis 11/08/2019 12:17:[address] [facility] R82.71 BACTERIURIA BACTERIURIA Diagnosis 11/08/2019 12:17:[address] [facility] D72.829 Elevated white blood cell count, unspeci fied ELEVATED WHITE BLOOD CELL COUNT, UNSPECIFIED Diagnosis 11/08/2019 12:17:00 AM EDT [facility] E78.5 Hyperlipidemia, unspecified HYPERLIPIDEMIA, UNSPECIFIE D Diagnosis 11/08/2019 12:17:[address] [facility] E87.70 Fluid overload, unspecified FLUID OVERLOAD, UNSPECIFIE D Diagnosis 11/08/2019 12:17:[address] [facility] E11.65 Type 2 diabetes mellitus with hyperglyce austen TYPE 2 DIABETES MELLITUS WITH HYPERGLYCEMIA Diagnosis 11/08/2019 12:17:00 AM T [facility] E87.6 Hypokalemia HYPOKALEMIA Diagnosis 11/08/2019 12:17:[address] [facility] K59.00 Constipation, unspecified CONSTIPATION, UNSPECIFIED Di agnosis 11/08/2019 12:17:[address] [facility] K52.9 Noninfective gastroenteritis and colitis , unspecified NONINFECTIVE GASTROENTERITIS AND COLITIS, UNSPECIFIED Diagnosis 11/08/2019 12:17:[address] [facility] I50.812 CHRONIC RIGHT HEART FAILURE CHRONIC RIGHT HEART FAILUR E Diagnosis 11/08/2019 12:17:[address] 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 I48.20 CHRONIC ATRIAL FIBRILLATION, UNSPECIFIED CHRONIC ATRIAL FIBRILLATION, UNSPECIFIED Diagnosis 11/08/2019 12:17:00 AM [facility] J44.1 Chronic obstructive pulmonary disease wi th (acute) exacerbation CHRONIC OBSTRUCTIVE PULMONARY DISEASE W (ACUTE) EXACERBATION Diagnosis 0 11/08/2019 12:17:[address] [facility] J18.9 Pneumonia, unspecified organism PNEUMONIA, UNSPECIFIED ORGANISM Diagnosis 11/08/2019 12:17:[address] [facility] J96.01 Acute respiratory failure with hypoxia A CUTE RESPIRATORY FAILURE WITH HYPOXIA Diagnosis 11/08/2019 12:17:00 AM T [facility] R65.20 Severe sepsis without septic shock SEVERE SEPSIS WITHOUT SEPTIC SHOCK Diagnosis 11/08/2019 12:17:[address] [facility] A41.9 Sepsis, unspecified organism SEPSIS, UNSPECIFIED ORGAN ISM Diagnosis 11/08/2019 12:17:[address] 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 Z92.21 Personal history of antineoplastic chemo therapy PERSONAL HISTORY OF ANTINEOPLASTIC CHEMOTHERAPY Diagnosis 10/14/2019 09:45:00 PM EDT [facility] Z92.3 Personal history of irradiation PERSONAL HISTORY OF IR RADIATION Diagnosis 10/14/2019 09:45:[address] [facility] Z90.49 Acquired absence of other specified part s of digestive tract ACQUIRED ABSENCE OF OTHER SPECIFIED PARTS OF DIGESTIVE TRACT Diagnosis 09:45:[address] [facility] Z79.01 FDC (current) use of anticoagulant s CORRECTION (CURRENT) USE OF ANTICOAGULANTS Diagnosis 10/14/2019 09:45:00 PM EDT [facility] I27.81 Cor pulmonale (chronic) COR PULMONALE (CHRONIC) Diagno sis 10/14/2019 09:45:[address] [facility] E11.9 Type 2 diabetes mellitus without complic ations TYPE 2 DIABETES MELLITUS WITHOUT COMPLICATIONS Diagnosis 10/14/2019 09:45:00 PM EDT [facility] I11.0 Hypertensive heart disease with heart fa ilure HYPERTENSIVE HEART DISEASE WITH HEART FAILURE Diagnosis 10/14/2019 09:45:00 PM EDT [facility] I50.23 Acute on chronic systolic (congestive) h eart failure ACUTE ON CHRONIC SYSTOLIC (CONGESTIVE) HEART FAILURE Diagnosis 10/14/2019 09:45:00 PM E DT [facility] I48.91 Unspecified atrial fibrillation UNSPECIFIED ATRI AL FIBRILLATION Diagnosis 10/14/2019 09:45:[address] [facility] I50.9 Heart failure, unspecified HEART FAILURE, UNSPECIFIED Diagnosis 10/14/2019 09:45:[address] [facility] R60.9 Edema, unspecified EDEMA, UNSPECIFIED Diagnosis 01:00:[address] [facility] E78.00 PURE HYPERCHOLESTEROLEMIA, UNSPECIFIED P URE HYPERCHOLESTEROLEMIA, UNSPECIFIED Diagnosis 09/07/2019 03:22:00 PM EDT [facility] I10 Essential (primary) hypertension ESSENTIAL (PRIMARY) H YPERTENSION Diagnosis 09/07/2019 03:22:[address] [facility] E61.1 Iron deficiency IRON DEFICIENCY Diagnosis 08/06/2019 09:4 1:00 AM [facility] Surgeries/Procedures Procedure Description Date Indications Data Source(s) POCT AMB EKG POCT AMB EKG Routine 03/23/2020 10:33 AM EST Atrial fibrillation, unspecified type 03/23/2020 03:33:00 PM EST Atrial fibrillation, unspecified type [facility] Atrial fibrillation, unspecified type Introduction of Anti-inflammatory into R espiratory Tract, Via Natural or Artificial Opening 01/22/2020 12:00:00 AM [facility] Drainage of Bladder with Drainage Device, Via Natural or Art ificial Opening 01/22/2020 12:00:00 AM [facility] Introduction of Insulin into Subcutaneous Tissue, Percutaneo us Approach 01/22/2020 12:00:00 AM [facility] Introduction of Other Therapeutic Substa nce into Peripheral Vein, Percutaneous Approach 01/22/2020 12:00:00 AM [facility] Muscle Performance Treatment of Musculoskeletal System - Who le Body 01/22/2020 12:00:00 AM [facility] Plain chest X-ray (procedure) 11/10/2019 12:00:00 AM E DT [facility] Plain chest X-ray (procedure) 11/10/2019 12:00:00 AM E [facility] Urine culture (procedure) [facility] 11/08/2019 12:00:00 AM E DT [facility] ELECTROCARDIOGRAM 11/08/2019 12:00:[address] [facility] Urine culture (procedure) 11/08/2019 12:00:00 AM EDT [facility] ELECTROCARDIOGRAM 11/08/2019 12:00:[address] [facility] Plain chest X-ray (procedure) 11/08/2019 12:00:00 AM E DT [facility] ELECTROCARDIOGRAM 11/08/2019 12:00:[address] [facility] INTRODUCE OTH THERAP SUBST IN PERIPH VEIN, PERC 2019 12:00:[address] [facility] Plain chest X-ray (procedure) 10/14/2019 12:00:00 AM E DT [facility] ECHOCARDIOGRAM 10/14/2019 12:00:[address] [facility] ELECTROCARDIOGRAM 10/14/2019 12:00:[address] [facility] INTRODUCE OTH THERAP SUBST IN PERIPH VEIN, PERC 2019 12:00:[address] [facility] Plain chest X-ray (procedure) 10/14/2019 12:00:00 AM E DT [facility] ECHOCARDIOGRAM 10/14/2019 12:00:[address] [facility] ELECTROCARDIOGRAM 10/14/2019 12:00:[address] [facility] Echocardiography, Profl,Tranthoracic, Realtime Image Documen tatio 10/14/2019 12:00:00 AM EDT [facility] INTRODUCE OTH THERAP SUBST IN PERIPH VEIN, PERC 2019 12:00:[address] [facility] Plain chest X-ray (procedure) 10/14/2019 12:00:00 AM E DT [facility] ECHOCARDIOGRAM 10/14/2019 12:00:[address] [facility] ELECTROCARDIOGRAM 10/14/2019 12:00:[address] [facility] INTRODUCE OTH THERAP SUBST IN PERIPH VEIN, PERC 2019 12:00:[address] [facility] Plain chest X-ray (procedure) 10/14/2019 12:00:00 AM E DT [facility] ECHOCARDIOGRAM 10/14/2019 12:00:[address] [facility] ELECTROCARDIOGRAM 10/14/2019 12:00:[address] [facility] INTRODUCE OTH THERAP SUBST IN PERIPH VEIN, PERC 2019 12:00:[address] [facility] Plain chest X-ray (procedure) 10/14/2019 12:00:00 AM E DT [facility] ECHOCARDIOGRAM 10/14/2019 12:00:[address] [facility] ELECTROCARDIOGRAM 10/14/2019 12:00:[address] [facility] Plain chest X-ray (procedure) 10/14/2019 12:00:00 AM E DT [facility] ECHOCARDIOGRAM 10/14/2019 12:00:[address] [facility] ELECTROCARDIOGRAM 10/14/2019 12:00:[address] [facility] Results ID Date Data Source [id number] 04/23/2020 11:03:00 AM EST [facility] Name Value Range Interpretation Code Description Data Karen rce(s) Supporting Document(s) SARS coronavirus 2 RNA [Presence] in Res piratory specimen by JEIMY with probe detection NEGATIVE [facility] This lab was ordered by [facility] a nd reported by [facility]. ID Date Data Source [id number] 04/18/2020 01:16:00 PM EST [facility] Name Value Range Interpretation Code Description Data Karen rce(s) Supporting Document(s) GLUCOSE 372 mg/dL 74-106 H [facility] BLOOD UREA NITROGEN 30 mg/dL 7-18 H [facility] ital CREATININE 0.99 mg/dL 0.6-1.0 [facility] SODIUM 139 mmol/L 136-145 [facility] POTASSIUM 3.8 mmol/L 3.5-5.1 [facility] CHLORIDE 96 mmol/L 98-107 L [facility] CO2 39 mmol/L 21-32 H [facility] CALCIUM 9.7 mg/dL 8.5-10.1 [facility] ANION GAP 4.0 mmol/L 5-12 L [facility] GLOMERULAR FILTRATION RATE 53 mL/min [facility] GFR IS CALCULATED IN mL/min/1.73m2 VALENCIA L FUNCTION: >90MILDLY DECREASED: 60-89MILDY TO MODERATELY DECREASED: 45-59 MODERATELY TO SEVERELY DECREASED: 30-44SEVERELY DECREASED: 15-29RENAL FAILURE: <15 AST 12 U/L 15-37 L [facility] ALT 24 U/L 12-78 [facility] ALKALINE PHOSPHATASE 111 U/L 46-116 [facility] [facility] TOTAL BILIRUBIN 0.6 mg/dL 0.2-1.0 [facility] TOTAL PROTEIN 7.0 g/dl 6.4-8.2 [facility] ALBUMIN 3.2 gm/dL 3.4-5.0 [facility] ID Date Data Source [id number] 04/18/2020 12:56:00 PM [facility] l Name Value Range Interpretation Code Description Data Karen rce(s) Supporting Document(s) HGBA1C 11.6 % 3.8-5.6 [facility] Diabetic > or = to 6.5%Prediabetes 5.7-6 .4%Normal <5.7 ESTIMATED AVERAGE GLUCOSE 286.2 mg/dL [facility] ID Date Data Source [id number] 04/18/2020 12:00:00 AM EST eCW1 ([facility]) Name Value Range Interpretation Code Description Data Karen rce(s) Supporting Document(s) Hemoglobin A1c/Hemoglobin.total in Blood by HPLC 6.5 4.5-6.2 HA1C eCW1 ([facility]) 6.5 4.5-6.2 HGBA1C eCW1 ([facility]) 286.2 ESTIMATED AVERAGE GLUCOSE eCW1 ([facility]) Hemoglobin A1c/Hemoglobin.total in Blood 11.6 3.8-5.6 HGBA1C eCW1 ([facility]) ID Date Data Source [id number] 04/13/2020 11:30:00 AM [facility] Name Value Range Interpretation Code Description Data Karen rce(s) Supporting Document(s) B-Type Natriuretic Peptide BNP <450 Above high normal [facility] Results of this test should always be us ed in conjunction with the patients medical history, clinical presentation, and other findings. ID Date Data Source [id number] 04/13/2020 11:00:00 AM [facility] Name Value Range Interpretation Code Description Data Karen rce(s) Supporting Document(s) Sodium 140 mmol/L 136-145 Normal (applies to non-numeric resul ts) [facility] Potassium 3.5-5.1 Normal (applies to non-numeric resul ts) [facility] Chloride 100 mmol/L 98-107 Normal (applies to non-numeric resul ts) [facility] Carbon Dioxide CO2 21-32 Normal (applies to non-numer ic results) [facility] Anion Gap 5.0-16.0 Normal (applies to non-numeric resul ts) [facility] BUN 26 mg/dL 7-18 Above high normal [facility] ospital Creatinine,Serum 0.7-1.2 Normal (applies to non-numeric results) [facility] GFR >60 Normal (applies to non-numeric results) [facility] Glucose Level 312 mg/dL 60-[address] [facility] Reference range is only applicable when patient is fasting Note the following drug interference: Sulfasalazine Sulfapyridine Can see falsely depressed Can see falsely elevated result with up to 17% results with up to 11% decrease in measurement increase in measurement Recommend patients be collected for this test prior to administration of either drug. Calcium 8.5-10.1 Below low normal [facility] spital ID Date Data Source [id number] 02/09/2020 11:37:00 AM [facility] Patient: OSKAR DUGAN Observation Report - [facility].VisitID: [id number] [place] [address] [phone], FRegistration Date/Time: 01/21/2020 15:37 Weight:61.6 kg (M). Height/Length:60 inches (S). BMI:26.5 Obs Start: 01/21/2020 19:08 Obs Dispo: 01/22/2020 16:13 Obs Duration: 21 hr 11 min Time Seen: 18:12 01/21/2020. ED Visit Summary:Chief complaint of: LOWER EXTREMITY EDEMA FOR LAST FEW DAYS. Initial diagnostic impression: VOLUME OVERLOAD. Summary of tests: refer to the ED record for labs / radiology results. CXR: MILD PULMONARY CONGESTION. Supervisory Note: I personally interviewed the patient, obtained the patient HPI and ROS and examined the patient. I have personally reviewed the EKG. Decision to end Obs: 16:13 01/22/2020. HISTORY OF PRESENT ILLNESSChief Complaint: SHORTNESS OF BREATH BILATERAL LE EDEMA. (MILD SOB/FERRO and bilateral LE edema). Is still present. Quality not described as pressure, tightness, indigestion, burning or aching. Quality not described as sharp, "pain" or well localized. No nausea, vomiting or diaphoresis. She has had mild difficulty breathing (some mild sob/ferro, but not requiring oxygen supplementation). There has been no orthopnea or wheezing. The patient has also had paroxysmal nocturnal dyspnea. Recent medical care: The patient was seen recently and hospitalized (November 2019). REVIEW OF SYSTEMSNo fever, chills, cough, calf pain or fainting episodes. No headache, sore throat, blurred vision, abdominal pain or black stools. No skin rash or bloody stools. She has had moderate pedal edema (bilateral to mid shins). PAST HISTORYSee nurses notes. Hypertension. Diabetes mellitus. Hyperlipidemia. h/o dm, htn, a fib. SOCIAL HISTORYFormer smoker. No alcohol use. FAMILY HISTORYFather: Hypertension. (noncontributory due to advanced age). PHYSICAL EXAMAppearance: Alert. Oriented X3. No acute distress. Eyes: Pupils equal, round and reactive to light. Eyes normal inspection. ENT: Ears normal. Nose normal. Pharynx normal. Neck: Normal inspection. Neck supple. CVS: Abnormal rhythm, which is irregularly irregular. No cardiac murmur. Respiratory: Decreased air movement in the bases bilaterally. Crackles present in the bases bilaterally. Abdomen: Soft and nontender. Bowel sounds normal. No mass. Back: Normal external inspe ction. Skin: Skin warm and dry. (some vague bruising, signs of chronic vasc changes). Extremities: Bilateral moderate 3+ pitting edema of the lower extremities involving both feet, both ankles and both lower legs. No calf tenderness. Neuro: Oriented X 3. No alteration in mental status. No cranial nerve deficit. No motor deficit. No sensory deficit. LABS, X-RAYS, AND EKGEKG: EKG time: 16:16 01/21/2020. Rate: 83. Atrial fibrillation (narrow- complex) (ventricular rate 83). Normal QT. No ST elevation. Chest X-ray: Normal Chest X-Ray: (mild pulm vasc congestion, no acute infiltrate). Lab oratory Tests: UA CULTURE IF INDICATED: (DEXTER: 01/21/2020 17:45)( [facility] 01/21/2020 17:51) New Order URINE SOURCE? URINE, CLEAN CATCHTSYSORDER [id number] Test Result Flag Units (Reference)URINE COLOR. YELLOW URINE APPEARANCE CLEAR URINE GLUCOSE (UA) 1000 H mg/dL (NEGATIVE) GREATER THAN URINE BILIRUBIN NEGATIVE (NEGATIVE) URINE KETONE NEGATIVE mg/dL (NEGATIVE) SPECIFIC GRAVITY,URINE 1.010 (1.001- 1.035) URINE BLOOD NEGATIVE (NEGATIVE) PH,URINE 5.0 (5.0-9.0) URINE PROTEIN NEGATIVE mg/dL (NEGATIVE) URINE UROBILINOGEN NORMAL(0.2-1) mg/dL (0-1) URINE NITRATE NEGATIVE (NEGATIVE) URINE LEUKOCYTE ESTERASE NEGATIVE (NEGATIVE) COVID-19 IN-HOUSE: (DEXTER: 01/21/2020 16:43)( [facility] 01/21/2020 17:04) New O rder TSYSORDER [id number] Test Result Flag Units (Reference)COVID-19 NEGATIVE (NEGATIVE) Negative results should be treated as presumptive and, ifinconsistent with clinical signs and symptoms or necessaryfor patient management, should be tested with differentauthorized or cleared molecular tests.Negative results do not preclude SARS-CoV-2 infection andshould not be used as the sole basis for patient managementdecisions.This is a rapid molecular in vitro diagnostic test utilizingan isothermal nucleic acid amplification technology intendedfor the qualitative detection of nucleic acid from the SARS-CoV-2 viral RNA in direct nasal, nasopharyngeal orthroat swabs from individuals who are suspected of COVID-19.Results are for the indentification of SARS-CoV-2 RNA. IanEZKY-PnD-9 RNA is generally detectable in respiratorysamples during the actue phase of infection. CBC w Diff: (DEXTER: 01/21/2020 16:05)( [facility] 01/21/2020 16:23) New Order TSYSORDER [id number] Test Result Flag Units (Reference)WHITE BLOOD COUNT 13.1 H K/mm3 (4.0-10.0) RED BLOOD COUNT 4.19 M/mm3 (4.00-5.50) HEMOGLOBIN 10.8 L gm/dL (12.0-16.0) HEMATOCRIT 36.4 % (36.0-48.8) MEAN CELL VOLUME 86.9 fl (80-96) MEAN CORPUSCULAR HEMOGLOBIN 25.8 L pg (27.0- 31.0) MEAN CORPUSCULAR HGB CONC 29.7 L g/dl (32.0-36.0) RED CELL DISTRIBUTION WIDTH 19.8 H % (10.0-14.5) PLATELET COUNT 333 K/mm3 (172-450) MEAN PLATELET VOLUME 9.1 fl (9.0-13.0) GRAN % 87.4 H % (50-80.0) IG% 0.4 H % (0.0-0.2) LYMPH % 5.8 L % (25.0- 50.0) MONO % 6.2 % (2.0-10.0) EOS % 0.1 % (0-5.0) BASO % 0.1 % (0.0-2.0) GRAN # 11.5 H K/mm3 (2.0-8.00) IG# 0.1 K/mm3 (0.0-0.2) LYMPH # 0.8 L K/mm3 (1.0-5.0) MONO # 0.8 K/mm3 (0.10- 1.20) EOS # 0.0 K/mm3 (0.0-0.5) BASO # 0.0 K/mm3 (0.0-0.2) PT with INR: (DEXTER: 01/21/2020 16:05)( Msg Rcvd 01/21/2020 16:34) New Order Test Result Flag Units (Reference)PROTHROMBIN TIME (PATIENT) 10.4 SECONDS (9.1-11.6) INR 1.00 (0.87- 1.06) PARTIAL THROMBOPLASTIN TIME 21.7 SECONDS (21.2-27.3) Troponin-I: (DEXTER: 01/21/2020 16:05)( MsgRcvd 01/21/2020 17:06) New Order Test Result Flag Units (Reference)GLUCOSE 397 *H mg/dL (74-106) BLOOD UREA NITROGEN 41 *H mg/dL (7-18) CREATININE 1.2 H mg/dL (0.6-1.0) SODIUM 136 mmol/L (136-145) POTASSIUM 4.0 mmol/L (3.5-5.1) CHLORIDE 95 L mmol/L (98-107) CO2 32 mmol/L (21-32) CALCIUM 9.1 mg/dL (8.5-10.1) ANION GAP 9.0 mmol/L (5-12) GLOMERULAR FILTRATION RATE 42 mL/min GFR IS CALCULATED IN mL/min/1.57h6INRYUQ FUNCTION: >90MILDLY DECREASED: 60-89MILDY TO MODERATELY DECREASED: 45-59 MODERATELY TO SEVERELY DECREASED: 30-44SEVERELY DECREASED: 15-29RENAL FAILURE: <15 AST 12 L U/L (15-37) ALT 36 U/L (12-78) ALKALINE PHOSPHATASE 95 U/L (46-116) TOTAL BILIRUBIN 0.7 mg/dL (0.2-1.0) TOTAL PROTEIN 6.4 g/dl (6.4-8.2) ALBUMIN 3.4 gm/dL (3.4-5.0) TROPONIN I 0.018 ng/mL (0.0-0.056) B-TYPE NATRIURETIC PEPTIDE 2718 *H pg/ml (0-450) CHEST 2 VIEWS: (DEXTER: 01/21/2020 16:04)( MsgRcvd 01/21/2020 17:07) F Test Result Flag Units (Reference)CHEST 2 VIEWS DATE OF EXAMINATION: 01/21/2020 16:08 EST -- -- CHEST 2 VIEWS -- HISTORY: Shortness of breath -- TECHNIQUE: PA and lateral radiographs of the chest -- COMPARISON: 12/09/2019 -- -- FINDINGS: -- Newly developed prlx-vc-psxhldzd cardiomegaly with no pulmonary venous hypertension is noted. Lungs are clear and well- expanded. Moderate COPD is unchanged. Small bilateral effusions are appreciated. -- -- IMPRESSION: -- Newly developed naqh-wk-mwfxmhcn cardiomegaly without PVH and small bilateral -- effusions. -- Numerous left-sided meeta -- Electronically signed in PS360 by: Lindsay Mir M.D. 01/21/2020 17:01 EST -- -- Dictated by: LINDSAY MIR . PROGRESS AND PROCEDURESCourse of Care: 09:52 01/22/20. Vital Signs: have been reviewed. Oxygen saturation normal. Patient is stable. Physical exam findings are improved. Symptoms better. (on 1-2 liters (home o2)LUNGs: improvement in bibasilar crackles, LE 3+ edema at mid quesada. Left arm with some mild edema (but noted prior rad-mastectomy and chronic lyphedema) H: chronic IRR IRR. spoke to daughter Noelle regarding prior Echo and ? why she is not AC. Will obtain records from [facility] from last hospitalization - She may require full admission if no significant improvement by tomorrow for decompensated CHF. her OP Design Engineering Manager is CLAUDE Leslie. [id number] re-evaluated and still having issues with dyspnea and weakness.No significant desaturations noted, she is continuing to diurese. However, she appears to still have some decompensation of her CHF in light of Afib (rate controlled) but for some reason not anticoagulated. I do anticipate she is likely going to need additional 3-4 days of IV lasix and PT. We spoke to [facility] Nursing supervisor lead refinery and awaiting her most recent Echo and inpatient records for review. Will Admit for further IV Lasix and monitoring on tele and monitoring of her dyspnea.). 09:00 01/22/2020 Norvasc (amLODIPine Besylate) PO 5 mg given. --09:07 Higinio Black MD. 09:00 01/22/2020 Atenolol PO 100 mg given. --09:08 Higinio Black MD. Differential Diagnosis:Other possible considerations: Lower extremity edema, volume overload, CHF, atrial fibrillation. Above considerations are based on history and physical exam. Differential diagnosis was discussed with patient. Disposition: Observation decision based on monitoring and IV lasix and reeval tomorrow with goal of net negative 2L/24 hrs. CLINICAL IMPRESSIONLE edemaAcute decompensation of CHFDyspneaA Fib rate controlled but not [id number]. (Electronically signed by Higinio Black MD 01/24/2020 13:11) Weight:61.6 kg (M). Height/Length:60 inches (S). BMI:26.5 Obs Start: 01/21/2020 19:08 Obs Dispo: 01/22/2020 16:13 Obs Duration: 21 hr 11 min FAMILY HISTORYFather: Hypertension. (Electronically signed by Jodie Eaton P.A. 01/21/2020 18:06) Addenda for OSKAR DUGAN VisitID: [id number] Date: 01/21/2020 02/09/2020 11:34chart review, updated follow up form(Electronically signed by Camila Jiang R.N. - 02/09/2020 11:34) Name Value Range Interpretation Code Description Data Karen rce(s) Supporting Document(s) ID Date Data Source [id number] 01/25/2020 11:24:00 AM [facility] Summary of HospitalizationReason for Ad missionINCREASED WEAKNESS/LEG SWELLING AND DYSPNEA Hospital [facility]89 yo female that presented through the ED for increased SHORTNESS OF BREATH, BILATERAL LE EDEMA. (MILD SOB/FERRO and bilateral LE edema). Was still present after being treated overnight as OBS for diuresis. Quality not described as pressure, tightness, indigestion, burning or aching. Quality not described as sharp, "pain" or well localized. No nausea, vomiting or diaphoresis. She has had mild difficulty breathing (some mild sob/ferro, but not requiring oxygen supplementation). There has been no orthopnea or wheezing. The patient has also had paroxysmal nocturnal dyspnea. I had spoken to her daughter Noelle by phone and she says that her symptoms have gradually gotten worse for last several days. Recent medical care: The patient was seen recently and hospitalized (November 2019) for similar symptoms. H/o: Afib not on anticoagulation (Daughter unsure why), ?CHF, s/p left rad mastectomy from left breast cancer and resultant chronic left arm lymphedema, HTN, HLD, DM2 and Iron def Received and reviewed recent notes from hospitalization at [facility] in Dec 2019. She had an UGI bleed with ulcerations and Xarelto was d/c. 2Decho showed: DD with preserved EF of 60%, severe and Pulmonary HTN. She was admitted for further IV lasix and has diuresed close to 5 L at this point. She feels she is back to her baseline function, did well with PT this morning. Leg swelling and arm swelling were much improved, much less wheeping of the legsand she will continue on PO lasix 20mg bid and telfa w/Keith wraps of the LEgs along with fluid restriction of 1800cc/day. We did an extensive medication review and I spoke to her Cardiology group at [facility].They confirmed the current regime n we have her on with exception to AC.Her [id number]-LDEu Score for Atrial Fibrillation Stroke Risk 6 with increased riskof stroke but we talked about her bleeding risk with her and her daughter and daughter in-law and elected to only use ASA for now. This should be readdressed by her PCP and cardiology at a future date. Today she appears well. She does still have some mild LE edema but I have cautioned her that we don't want to aggressively diurese her to quickly d/t the severe and pulmonary HTN for fear of significantly decreasing her pre-load.Nursing did notice a small erythematous area on her coccyx we will apply a foam dressing to and family should keep an ey on this. She is afebrile and otherwise hemodynamially stable for discharge home.Patient and family are agreeable to d/c plan. Procedures & Relevant StudiesStudiesAddmission diagnositics:UA CULTURE IF INDICATED: (DEXTER: 01/21/2020 17:45) ( MsgRcvd 01/21/2020 17:51) New Order URINE SOURCE? URINE, CLEAN CATCHTSYSORDER [id number] Test Result Flag Units (Reference) URINE COLOR. YELLOW URINE APPEARANCE CLEAR URINE GLUCOSE (UA) 1000 H mg/dL (NEGATIVE) GREATER THAN URINE BILIRUBIN NEGATIVE (NEGATIVE) URINE KETONE NEGATIVE mg/dL (NEGATIVE) SPECIFIC GRAVITY,URINE 1.010 (1.001-1.035) URINE BLOOD NEGATIVE (NEGATIVE) PH,URINE 5.0 (5.0-9.0) URINE PROTEIN NEGATIVE mg/dL (NEGATIVE) URINE UROBILINOGEN NORMAL(0.2-1) mg/dL (0-1) URINE NITRATE NEGATIVE (NEGATIVE) URINE LEUKOCYTE ESTERASE NEGATIVE (NEGATIVE) COVID-19 IN-HOUSE: (DEXTER: 01/21/2020 16:43) ( MsgRcvd 01/21/2020 17:04) New Order TSYSORDER [id number] Test Result Flag Units (Reference) COVID-19 NEGATIVE (NEGATIVE) Negative results should be treated as presumptive and, ifinconsistent with clinical signs and symptoms or necessaryfor patient management, should be testedwith differentauthorized or cleared molecular tests.Negative results do not preclude SARS-CoV-2 infection andshould not be used as the sole basis for patient managementdecisions.This is a rapid molecular in vitro diagnostic test utilizingan isothermal nucleic acid amplification technology intendedfor the qualitative detection of nucleic acid from the SARS-CoV-2 viral RNA in direct nasal, nasopharyngeal orthroat swabs from individuals who are suspected of COVID-19.Results are for the indentification of SARS-CoV-2 RNA. FjdRTOD-DeH-5 RNA is generally detectable in respiratorysamples during the actue phase of infection. CBC w Diff: (DEXTER: 01/21/2020 16:05) ( MsgRcvd 01/21/2020 16:23) New Order TSYSORDER [id number] Test Result Flag Units (Reference) WHITE BLOOD COUNT 13.1 H K/mm3 (4.0-10.0) RED BLOOD COUNT 4.19 M/mm3 (4.00-5.50) HEMOGLOBIN 10.8 L gm/dL (12.0-16.0) HEMATOCRIT 36.4 % (36.0-48.8) MEAN CELL VOLUME 86.9 fl (80-96) MEAN CORPUSCULAR HEMOGLOBIN 25.8 L pg (27.0-31.0) MEAN CORPUSCULAR HGB CONC 29.7 L g/dl (32.0-36.0) RED CELL DISTRIBUTION WIDTH 19.8 H % (10.0-14.5) PLATELET COUNT 333 K/mm3 (172-450) MEAN PLATELET VOLUME 9.1 fl (9.0-13.0) GRAN % 87.4 H % (50-80.0) IG% 0.4 H % (0.0- 0.2) LYMPH % 5.8 L % (25.0-50.0) MONO % 6.2 % (2.0-10.0) EOS % 0.1 % (0-5.0) BASO % 0.1 % (0.0-2.0) GRAN # 11.5 H K/mm3 (2.0-8.00) IG# 0.1 K/mm3 (0.0-0.2) LYMPH # 0.8 L K/mm3 (1.0-5.0) MONO # 0.8 K/mm3 (0.10-1.20) EOS # 0.0 K/mm3 (0.0-0.5) BASO # 0.0 K/mm3 (0.0-0.2) PT with INR: (DEXTER: 01/21/2020 16:05) ( [facility] 01/21/2020 16:34) New Order Test Result Flag Units (Reference) PROTHROMBIN TIME (PATIENT) 10.4 SECONDS (9.1-11.6) INR 1.00 (0.87-1.06) PARTIAL THROMBOPLASTIN TIME 21.7 SECONDS (21.2-27.3) Troponin-I: (DEXTER: 01/21/2020 16:05) ( [facility] 01/21/2020 17:06) New Order Test Result Flag Units (Reference) GLUCOSE 397 *H mg/dL (74-106) BLOOD UREA NITROGEN 41 *H mg/dL (7-18) CREATININE 1.2 H mg/dL (0.6-1.0) SODIUM 136 mmol/L (136-145) POTASSIUM 4.0 mmol/L (3.5-5.1) CHLORIDE 95 L mmol/L (98- 107) CO2 32 mmol/L (21-32) CALCIUM 9.1 mg/dL (8.5-10.1) ANION GAP 9.0 mmol/L (5-12) GLOMERULAR FILTRATION RATE 42 mL/min GFR IS CALCULATED IN mL/min/1.48c1HDFZTL FUNCTION: >90MILDLY DECREASED: 60-89MILDY TO MODERATELY DECREASED: 45-59 MODERATELY TO SEVERELY DECREASED: 30- 44SEVERELY DECREASED: 15-29RENAL FAILURE: <15 AST 12 L U/L (15-37) ALT 36 U/L (12-78) ALKALINE PHOSPHATASE 95 U/L (46-116) TOTAL BILIRUBIN 0.7 mg/dL (0.2-1.0) TOTAL PROTEIN 6.4 g/dl (6.4-8.2) ALBUMIN 3.4 gm/dL (3.4-5.0) TROPONIN I 0.018 ng/mL (0.0-0.056) B-TYPE NATRIURETIC PEPTIDE 2718 *H pg/ml (0- 450) ECG showed chronic afib with no acute changes. Diagnoses (Current Visit)Problem List 1. Acute decompensated heart failure A&Pdiuresed well and will resume PO lasix 20mg daily.c/w 1800cc/day fluid restrictionACE wraps to legs 2. Dyspnea A&Presolved and doing well on RA 3. Bilateral lower extremity edema A&Pimproved, I suspect she will have some chronic LE swelling.Continue with Lasix and she may occasionally take a third dose if her legs are more swollen.Recommending home health nursing for chf checks and home educatinon. 4. Lymphedema of left arm A&Ps/p radical mastectomy 5. History of GI bleed A&Pstable h/h, continue PPI 6. History of gastroesophageal reflux (GERD) A&Pc/w ppi 7. Atrial fibrillation A&Prate controlled on Coregnot on xarelto d/t risk of GI bleedEC ASA but AC recommendations may want revisted a later date by her PCP and cardiology. 8. Iron deficiency anemia A&Ph/h stable, c/w FeSO4 daily 9. Hypertension A&PC/w antihypertensives 10. Diabetes A&Pconsistent carb dietOk to resume home antidiabetic meds 11. Hyperlipidemia A&Pc/w statin therapy Patient's Discharge ConditionVital SignsVital Signs Date Time Temp Pulse Resp B/P B/P Pulse O2 O2 Flow FiO2 Mean Ox Delivery Rate 01/24 0733 98.6 94 18 124/72 95 01/24 0334 97.6 73 14 102/60 96 01/234 96.7 80 16 93/52 95 11/09 1952 97.0 81 18 93/52 97 01/23 1520 97.2 78 18 100/64 97 Patient's Discharge ConditionDischarge date 01/25/20Discharge condition stableDischarge DispositionD/c home in care of family and recommending home health nurse. Physical ExaminationOther:GEN: NAD, A&Xa0LZKSW: PERRLA, throat clear, no adenopathy/thyroidomegalyLUNGS: CTA BilaterallyHEART: Irreg IrregABDOMEN: soft, NT/ND, normoactive bowel sounds w/o reboundLOWER EXT: mild edema to anterior lower shins (much improved)SKIN: warm and intact NEURO: director center II-XII grossly intactPSYCH: normal affectAddional NotesMOLST form was updated during hospitalization: DNR/DNI Patient/Family InstructionsPrescriptionsStop taking the following medications:Amlodipine Besylate (Norvasc) 5 MG TABLET 5 MILLIGRAM ORAL Daily Atenolol (Atenolol) 100 MG TABLET 100 MILLIGRAM ORAL Daily Ranitidine HCl (Acid Claim Technician) 150 MG TABLET 150 MILLIGRAM ORAL Twice Daily Sulindac (Sulindac) 200 MG TABLET 200 MILLIGRAM ORAL as needed for PAIN Pre dnisone* (Prednisone*) 20 MG TABLET 20 MILLIGRAM ORAL Daily Continue taking these medications:IPRATROPIUM/ALBUTEROL SULFATE (Combivent Respimat Inhal Bandy) 4 GM MIST.INHAL 1 SPRAY INHALATION 3 Times Daily as needed for SHORTNESSS OF BREATH Enalapril Maleate (Enalapril Maleate) 20 MG TABLET 20 MILLIGRAM ORAL Twice Daily Glipizide (Glucotrol) 5 MG TABLET 5 MILLIGRAM ORAL Daily Instructions: 2 tablets Pravastatin Sodium (Pravastatin Sodium) 40 MG TABLET 40 MILLIGRAM ORAL 4XWEEK Metformin Hydrochloride (Metformin HCl) 500 MG TABLET 500 MILLIGRAM ORAL Ferrous Sulfate* (Ferrous Sulfate*) 325 MG TABLET 325 MILLIGRAM ORAL Daily Empagliflozin (Jardiance) 10 MG TABLET 10 MILLIGRAM ORAL Daily Furosemide (Lasix) 20 MG TABLET MILLIGRAM ORAL Twice Daily Start taking the following new medications:Carvedilol* (Carvedilol*) 6.25 MG TABLET 6.25 MILLIGRAM ORAL Twice Daily Qty = 60 No Refills DILTIAZEM HCL (Diltiazem 24HR Cd) 180 MG CAP.ER.24H 180 MILLIGRAM ORAL Daily Qty = 30 No Refills Aspirin* (Aspirin EC*) 81 MG/ECT ECT 81 MILLIGRAM ORAL Daily Qty = 30 No Refills Omeprazole* (Prilosec*) 20 MG CAPSULE.DR 40 MILLIGRAM ORAL Daily Qty = 30 No Refills Activity: Return to usual activityDiet: Diabetic DietAppointments Follow up with:LATHA BROWN on: 02/01/20 at: 10:20Additional Notestelfa and keith wraps to legs daily.Fluid restrict to 1800cc/dayOk to take an additional dose of Lasix on days that legs may appear more swollen.Time spent by provider to complete discharge > 30 minutes Name Value Range Interpretation Code Description Data Karen rce(s) Supporting Document(s) ID Date Data Source [id number] 01/25/2020 11:05:00 AM [facility] Discharge Appointments AppointmentsFoll ow up with:LATHA BROWN Aon: 02/01/20at: 10:20 Diagnosis & Medication Allergy Information Coded Allergies:No Known Drug Allergies (02/27/17) DiagnosisProblem ListMedical Problems Acute decompensated heart failure Acute pyelonephritis Atrial fibrillation Bilateral lower extremity edema Breast cancer Colon cancer Diabetes Dyspnea Full code status History of colorectal cancer History of gastroesophageal reflux (GERD) History of GI bleed Hyperlipidemia Hypertension Hypoalbuminemia Iron deficiency anemia Lymphedema of left arm Pulmonary hypertension Severe aortic stenosis by prior echocardiogram Squamous cell carcinomaSurgical Problems H/O ileostomy History of left cataract surgery History of left mastectomy History of tonsillectomy and adenoidectomy History of vein stripping Hx of colectomy Your Medications*Stop taking the following medications:Amlodipine Besylate (Norvasc) 5 MG TABLET 5 MILLIGRAM ORAL Daily Atenolol (Atenolol) 100 MG TABLET 100 MILLIGRAM ORAL Daily Ranitidine HCl (Acid Claim Technician) 150 MG TABLET 150 MILLIGRAM ORAL Twice Daily Sulindac (Sulindac) 200 MG TABLET 200 MILLIGRAM ORAL as needed for PAIN Prednisone* (Prednisone*) 20 MG TABLET 20 MILLIGRAM ORAL Daily Continue taking these medications:IPRATROPIUM/ALBUTEROL SULFATE (Combivent Respimat Inhal Bandy) 4 GM MIST.INHAL 1 SPRAY INHALATION 3 Times Daily as needed for SHORTNESSS OF BREATH Enalapril Maleate (Enalapril Maleate) 20 MG TABLET 20 MILLIGRAM ORAL Twice Daily Glipizide (Glucotrol) 5 MG TABLET 5 MILLIGRAM ORAL Daily Instructions: 2 tablets Pravastatin Sodium (Pravastatin Sodium) 40 MG TABLET 40 MILLIGRAM ORAL 4XWEEK Metformin Hydrochloride (Metformin HCl) 500 MG TABLET 500 MILLIGRAM ORAL Ferrous Sulfate* (Ferrous Sulfate*) 325 MG TABLET 325 MILLIGRAM ORAL Daily Empagliflozin (Jardiance) 10 MG TABLET 10 MILLIGRAM ORAL Daily Furosemide (Lasix) 20 MG TABLET MILLIGRAM ORAL Twice Daily Start taking the following new medications:Carvedilol* (Carvedilol*) 6.25 MG TABLET 6.25 MILLIGRAM ORAL Twice Daily Qty = 60 No Refills DILTIAZEM HCL (Diltiazem 24HR Cd) 180 MG CAP.ER.24H 180 MILLIGRAM ORAL Daily Qty = 30 No Refills Aspirin* (Aspirin EC*) 81 MG/ECT ECT 81 MILLIGRAM ORAL Daily Qty = 30 No Refills Omeprazole* (Prilosec*) 20 MG CAPSULE.DR 40 MILLIGRAM ORAL Daily Qty = 30 No Refills Discharge Instructions Review & Sign* I understand the instructions I have received: Patient/Family Signature: Date/Time OrderingProvider Signature: Date/Time Discharging Nurse Signature: Date/Time Name Value Range Interpretation Code Description Data Karen rce(s) Supporting Document(s) ID Date Data Source [id number] 01/24/2020 01:23:00 PM EST [facility] Patient: OSKAR DUGAN Observation Report - [facility].VisitID: [id number] [place] [address] [phone], FRegistration Date/Time: 01/21/2020 15:37 Weight:61.6 kg (M). Height/Length:60 inches (S). BMI:26.5 Obs Start: 01/21/2020 19:08 Obs Dispo: 01/22/2020 16:13 Obs Duration: 21 hr 11 min Time Seen: 18:12 01/21/2020. ED Visit Summary:Chief complaint of: LOWER EXTREMITY EDEMA FOR LAST FEW DAYS. Initial diagnostic impression: VOLUME OVERLOAD. Summary of tests: refer to the ED record for labs / radiology results. CXR: MILD PULMONARY CONGESTION. Supervisory Note: I personally interviewed the patient, obtained the patient HPI and ROS and examined the patient. I have personally reviewed the EKG. Decision to end Obs: 16:13 01/22/2020. HISTORY OF PRESENT ILLNESSChief Complaint: SHORTNESS OF BREATH BILATERAL LE EDEMA. (MILD SOB/FERRO and bilateral LE edema). Is still present. Quality not described as pressure, tightness, indigestion, burning or aching. Quality not described as sharp, "pain" or well localized. No nausea, vomiting or diaphoresis. She has had mild difficulty breathing (some mild sob/ferro, but not requiring oxygen supplementation). There has been no orthopnea or wheezing. The patient has also had paroxysmal nocturnal dyspnea. Recent medical care: The patient was seen recently and hospitalized (November 2019). REVIEW OF SYSTEMSNo fever, chills, cough, calf pain or fainting episodes. No headache, sore throat, blurred vision, abdominal pain or black stools. No skin rash or bloody stools. She has had moderate pedal edema (bilateral to mid shins). PAST HISTORYSee nurses notes. Hypertension. Diabetes mellitus. Hyperlipidemia. h/o dm, htn, a fib. SOCIAL HISTORYFormer smoker. No alcohol use. FAMILY HISTORYFather: Hypertension. (noncontributory due to advanced age). PHYSICAL EXAMAppearance: Alert. Oriented X3. No acute distress. Eyes: Pupils equal, round and reactive to light. Eyes normal inspection. ENT: Ears normal. Nose normal. Pharynx normal. Neck: Normal inspection. Neck supple. CVS: Abnormal rhythm, which is irregularly irregular. No cardiac murmur. Respiratory: Decreased air movement in the bases bilaterally. Crackles present in the bases bilaterally. Abdomen: Soft and nontender. Bowel sounds normal. No mass. Back: Normal external inspe ction. Skin: Skin warm and dry. (some vague bruising, signs of chronic vasc changes). Extremities: Bilateral moderate 3+ pitting edema of the lower extremities involving both feet, both ankles and both lower legs. No calf tenderness. Neuro: Oriented X 3. No alteration in mental status. No cranial nerve deficit. No motor deficit. No sensory deficit. LABS, X-RAYS, AND EKGEKG: EKG time: 16:16 01/21/2020. Rate: 83. Atrial fibrillation (narrow- complex) (ventricular rate 83). Normal QT. No ST elevation. Chest X-ray: Normal Chest X-Ray: (mild pulm vasc congestion, no acute infiltrate). Lab oratory Tests: UA CULTURE IF INDICATED: (DEXTER: 01/21/2020 17:45)( MsgRcvd 01/21/2020 17:51) New Order URINE SOURCE? URINE, CLEAN CATCHTSYSORDER [id number] Test Result Flag Units (Reference)URINE COLOR. YELLOW URINE APPEARANCE CLEAR URINE GLUCOSE (UA) 1000 H mg/dL (NEGATIVE) GREATER THAN URINE BILIRUBIN NEGATIVE (NEGATIVE) URINE KETONE NEGATIVE mg/dL (NEGATIVE) SPECIFIC GRAVITY,URINE 1.010 (1.001- 1.035) URINE BLOOD NEGATIVE (NEGATIVE) PH,URINE 5.0 (5.0-9.0) URINE PROTEIN NEGATIVE mg/dL (NEGATIVE) URINE UROBILINOGEN NORMAL(0.2-1) mg/dL (0-1) URINE NITRATE NEGATIVE (NEGATIVE) URINE LEUKOCYTE ESTERASE NEGATIVE (NEGATIVE) COVID-19 IN-HOUSE: (DEXTER: 01/21/2020 16:43)( MsgRcvd 01/21/2020 17:04) New O rder TSYSORDER [id number] Test Result Flag Units (Reference)COVID-19 NEGATIVE (NEGATIVE) Negative results should be treated as presumptive and, ifinconsistent with clinical signs and symptoms or necessaryfor patient management, should be tested with differentauthorized or cleared molecular tests.Negative results do not preclude SARS-CoV-2 infection andshould not be used as the sole basis for patient managementdecisions.This is a rapid molecular in vitro diagnostic test utilizingan isothermal nucleic acid amplification technology intendedfor the qualitative detection of nucleic acid from the SARS-CoV-2 viral RNA in direct nasal, nasopharyngeal orthroat swabs from individuals who are suspected of COVID-19.Results are for the indentification of SARS-CoV-2 RNA. [id number] RNA is generally detectable in respiratorysamples during the actue phase of infection. CBC w Diff: (DEXTER: 01/21/2020 16:05)( MsgRcvd 01/21/2020 16:23) New Order TSYSORDER [id number] Test Result Flag Units (Reference)WHITE BLOOD COUNT 13.1 H K/mm3 (4.0-10.0) RED BLOOD COUNT 4.19 M/mm3 (4.00-5.50) HEMOGLOBIN 10.8 L gm/dL (12.0-16.0) HEMATOCRIT 36.4 % (36.0-48.8) MEAN CELL VOLUME 86.9 fl (80-96) MEAN CORPUSCULAR HEMOGLOBIN 25.8 L pg (27.0- 31.0) MEAN CORPUSCULAR HGB CONC 29.7 L g/dl (32.0-36.0) RED CELL DISTRIBUTION WIDTH 19.8 H % (10.0-14.5) PLATELET COUNT 333 K/mm3 (172-450) MEAN PLATELET VOLUME 9.1 fl (9.0-13.0) GRAN % 87.4 H % (50-80.0) IG% 0.4 H % (0.0-0.2) LYMPH % 5.8 L % (25.0- 50.0) MONO % 6.2 % (2.0-10.0) EOS % 0.1 % (0-5.0) BASO % 0.1 % (0.0-2.0) GRAN # 11.5 H K/mm3 (2.0-8.00) IG# 0.1 K/mm3 (0.0-0.2) LYMPH # 0.8 L K/mm3 (1.0-5.0) MONO # 0.8 K/mm3 (0.10- 1.20) EOS # 0.0 K/mm3 (0.0-0.5) BASO # 0.0 K/mm3 (0.0-0.2) PT with INR: (DEXTER: 01/21/2020 16:05)( Msg Rcvd 01/21/2020 16:34) New Order Test Result Flag Units (Reference)PROTHROMBIN TIME (PATIENT) 10.4 SECONDS (9.1-11.6) INR 1.00 (0.87- 1.06) PARTIAL THROMBOPLASTIN TIME 21.7 SECONDS (21.2-27.3) Troponin-I: (DEXTER: 01/21/2020 16:05)( MsgRcvd 01/21/2020 17:06) New Order Test Result Flag Units (Reference)GLUCOSE 397 *H mg/dL (74-106) BLOOD UREA NITROGEN 41 *H mg/dL (7-18) CREATININE 1.2 H mg/dL (0.6-1.0) SODIUM 136 mmol/L (136-145) POTASSIUM 4.0 mmol/L (3.5-5.1) CHLORIDE 95 L mmol/L (98-107) CO2 32 mmol/L (21-32) CALCIUM 9.1 mg/dL (8.5-10.1) ANION GAP 9.0 mmol/L (5-12) GLOMERULAR FILTRATION RATE 42 mL/min GFR IS CALCULATED IN mL/min/1.04c0UNUSSJ FUNCTION: >90MILDLY DECREASED: 60-89MILDY TO MODERATELY DECREASED: 45-59 MODERATELY TO SEVERELY DECREASED: 30-44SEVERELY DECREASED: 15-29RENAL FAILURE: <15 AST 12 L U/L (15-37) ALT 36 U/L (12-78) ALKALINE PHOSPHATASE 95 U/L (46-116) TOTAL BILIRUBIN 0.7 mg/dL (0.2-1.0) TOTAL PROTEIN 6.4 g/dl (6.4-8.2) ALBUMIN 3.4 gm/dL (3.4-5.0) TROPONIN I 0.018 ng/mL (0.0-0.056) B-TYPE NATRIURETIC PEPTIDE 2718 *H pg/ml (0-450) CHEST 2 VIEWS: (DEXTER: 01/21/2020 16:04)( MsgRcvd 01/21/2020 17:07) F Test Result Flag Units (Reference)CHEST 2 VIEWS DATE OF EXAMINATION: 01/21/2020 16:08 EST -- -- CHEST 2 VIEWS -- HISTORY: Shortness of breath -- TECHNIQUE: PA and lateral radiographs of the chest -- COMPARISON: 12/09/2019 -- -- FINDINGS: -- Newly developed yjet-xo-pysryvax cardiomegaly with no pulmonary venous hypertension is noted. Lungs are clear and well- expanded. Moderate COPD is unchanged. Small bilateral effusions are appreciated. -- -- IMPRESSION: -- Newly developed ejag-qu-xowkzjah cardiomegaly without PVH and small bilateral -- effusions. -- Numerous left-sided meeta -- Electronically signed in PS360 by: Lindsay Mir M.D. 01/21/2020 17:01 EST -- -- Dictated by: LINDSAY MIR . PROGRESS AND PROCEDURESCourse of Care: 09:52 01/22/20. Vital Signs: have been reviewed. Oxygen saturation normal. Patient is stable. Physical exam findings are improved. Symptoms better. (on 1-2 liters (home o2)LUNGs: improvement in bibasilar crackles, LE 3+ edema at mid quesada. Left arm with some mild edema (but noted prior rad-mastectomy and chronic lyphedema) H: chronic IRR IRR. spoke to daughter Noelle regarding prior Echo and ? why she is not AC. Will obtain records from [facility] from last hospitalization - She may require full admission if no significant improvement by tomorrow for decompensated CHF. her OP Design Engineering Manager is CLAUDE Leslie. [id number] re-evaluated and still having issues with dyspnea and weakness.No significant desaturations noted, she is continuing to diurese. However, she appears to still have some decompensation of her CHF in light of Afib (rate controlled) but for some reason not anticoagulated. I do anticipate she is likely going to need additional 3-4 days of IV lasix and PT. We spoke to [facility] Nursing supervisor lead refinery and awaiting her most recent Echo and inpatient records for review. Will Admit for further IV Lasix and monitoring on tele and monitoring of her dyspnea.). 09:00 01/22/2020 Norvasc (amLODIPine Besylate) PO 5 mg given. --09: Higinio Black MD. 09:00 01/22/2020 Atenolol PO 100 mg given. --09:08 Higinio Black MD. Differential Diagnosis:Other possible considerations: Lower extremity edema, volume overload, CHF, atrial fibrillation. Above considerations are based on history and physical exam. Differential diagnosis was discussed with patient. Disposition: Observation decision based on monitoring and IV lasix and reeval tomorrow with goal of net negative 2L/24 hrs. CLINICAL IMPRESSIONLE edemaAcute decompensation of CHFDyspneaA Fib rate controlled but not [id number]. (Electronically signed by Higinio Black MD 01/24/2020 13:11) Weight:61.6 kg (M). Height/Length:60 inches (S). BMI:26.5 Obs Start: 01/21/2020 19:08 Obs Dispo: 01/22/2020 16:13 Obs Duration: 21 hr 11 min FAMILY HISTORYFather: Hypertension. (Electronically signed by Jodie Eaton, P.A. 01/21/2020 18:06) Name Value Range Interpretation Code Description Data Karen rce(s) Supporting Document(s) ID Date Data Source [id number] 01/24/2020 12:57:00 PM [facility] Progress Note GeneralEncounter:Chart re viewed. Patient interviewed and examined. Labs, medications and orders viewed by me. SubjectiveGeneral Condition:89 yo female seen at bedside.No overnight or nursing issues reported.She continues to diurese well and feels her leg and arm swelling has improved.Denies: f/c/r, n/v/d, CP, productive sputum/cough or hemoptysistolerating PO intakeFoley catheter in place for strict I/O's ObjectiveNote:Temp; 98.2, Pulse; 70, Resp: 18, B/P: 110/67 SaO2: 98, O2 Status: GEN: NAD, A&Dt3HQERI: PERRLA, throat clear, no adenopathy/thyroidomegalyLUNGS: diminished bibasillar breath sounds, otherwise clearHEART: RRR w/o murmurABDOMEN: soft, NT/ND, normoactive bowel sounds w/o reboundLEFT ARM: chronic swelling noted but improvedLOWER EXT: 2+edema bilaterally, left leg may be a little less both to mid shins,no calf tenderness.SKIN: warm and intact NEURO: director center II-XII grossly intactPSYCH: normal affect Assessment/PlanAllergiesCoded Allergies:No Known Drug Allergies (02/27/17) Problem List 1. Acute decompensated heart failure A&PECHO Dec 2019 shows preserved EF (60%) but also demonstrated Pulmonary HTn and Severe .She has diuresed close to 6L since admission.IV lasix 40mg today and likely progress to her PO home dose of Lasix 20mg bid tomorrow.D/t h/o severe and Pulmonary HTN; will slow the rate of diuresis and wait until tomorrow for next dose of IV Lasi x. Her labs are otherwise stable.Again had discussion with patient and her family regarding long-term prognosis and goals of care today. 2. Dyspnea A&PFeels she is almost back to baseline. Lungs clear and she remains on RA. 3. Bilateral lower extremity edema A&PImprovement noted with furhter diuresis. 4. Lymphedema of left arm A&PChronic/stable and likely 2/2 s/p radical mastectomy 5. Diabetes A&Pc/w consistent carb diet, fsbs ac and hs with SSI.Will likely d/c home back on her home regimen. 6. Hypertension A&PStable with currently modified medications. 7. Hyperlipidemia A&Pc/w statin therapy 8. Iron deficiency anemia A&Pc/w FeSO4 dailyh/h stable 9. Atrial fibrillation A&Prate [id number] Score for Atrial Fibrillation Stroke Risk= 7Spoke to daughter in law and daughter. Patient admitted to [facility] last month and had GI bleed with gastric ulcers. Xarelto was d/c and she was placed on ASA EC 81mg daily. Will leave on this regimen for now and defer to her Design Engineering Manager / PCP to determine if she should resume AC at some point in the next couple months. 10. History of GI bleed A&Pcontinue with PPI otherwise not demonstrating any indication of current GI bleed.H/H remains stable. 11. History of gastroesophageal reflux (GERD) A&PC/w PPI 12. History of colorectal cancer A&Pf/u OP PCP 13. Breast cancer A&Pf/u OP PCP 14. Pulmonary hypertension A&Wolf ECHO from [facility] December 2019.Diuresing more conservatively to maintain appropriate pre-load. 15. Severe aortic stenosis by prior echocardiogram A&Ppatient aware.F/u OP PCP and Cardiology. Disposition: She appears stable and likely ready for home d/c tomorrow VTE ProphylaxisVTE Prophylaxis: Sq Heparin. Name Value Range Interpretation Code Description Data Karen rce(s) Supporting Document(s) ID Date Data Source [id number] 01/23/2020 02:19:00 PM EST [facility] l Progress Note GeneralEncounter:Chart re viewed. Patient interviewed and examined. Labs, medications and orders viewed by me. SubjectiveGeneral Condition:89 yo female seen at bedside.Says she is feeling much better this morning. Leg swelling / wheeping improved as well some improvement in her chronic arm swelling.Feels her SOB/FERRO is significantly improved.Denies: f/c/r, n/v/d, abdominal pain, CP, cough or hemoptysis.No overnight or nursing issues.Bolden catheter in place for strict I/O's ObjectiveNote:Temp; 97.6, Pulse; 81, Resp: 18, B/P: 122/66 SaO2: 97, O2 Status: RA GEN: NAD, A&Va2UIMEA: PERRLA, throat clear, no adenopathy/thyroidomegalyLUNGS: diminished bibasilar breathsounds with occasional cracklesHEART: Irreg IrregABDOMEN: soft, NT/ND, normoactive bowel sounds w/o reboundLOWER EXT: 2-3+ edema mid shins bilaterally w/less wheeping, left arm has decreased edema. no calf tendernessSKIN: warm and intact NEURO: director center II-XII grossly intactPSYCH: normal affect Assessment/PlanAllergiesCoded Allergies:No Known Drug Allergies (02/27/17) Problem List 1. Acute decompensated heart failure A&PECHO Dec 2019 shows preserved EF (60%) but also demonstrated Pulmonary HTn and Severe .She has diuresed close to 5L since admission.will hold further IV Lasix for today since she is greater than 2L net negative for last 24hrs.D/t h/o severe and Pulmonary HTN; will slow the rate of diuresis and wait until tomorrow for next dose of IV Lasix. She likely is still positive 2-3 more liters prior to going home.Her labs are otherwise stable. 2. Dyspnea A&PImproved, Is on RA.will continue to monitor 3. Bilateral lower extremity edema A&PContinue to wrap with KEITH wraps as tolerated. Less wheeping today noted.Should c/t improve with further diuresis. 4. Lymphedema of left arm A&Pchronic; but mild improvement with diuresis. 5. Diabetes A&Pc/w consistent carb diet.FSBS ac/hs and SSI Likely resume oral meds on d/c. 6. Hypertension A&PImproved, as noted in H/P there was a significant discrepancy in home med list.I believe we have her on her appropriate home regimen but will touch base with her OP cardiology group tomorrow. 7. Hyperlipidemia A&PC/w pravachol 8. Iron deficiency anemia A&PC/w FeSO4 325mg dailyH/H stable 9. Atrial fibrillation A&PWe modified her medications late last night. She is running b/w 80s to 105 on Tele.Will c/w current regimen of coreg and cardizem dosing for next 24hrs and consider further modification from there. 10. History of GI bleed A&PQuestionabel history, but no active s/s and her H/H remains stable. 11. History of gastroesophageal reflux (GERD) A&PC/w PPI 12. History of colorectal cancer A&POP f/u with PCP 13. Breast cancer A&POP f/u with PCP 14. Pulmonary hypertension A&PDoing well on RA. Will reduce rate of diuresis as to not signifiantly decrease her pre-load. 15. Severe aortic stenosis by prior echocardiogram A&PDoing well on RA. Will reduce rate of diuresis as to not signifiantly decrease her pre-load. Advance Care Planning* 20 minutes of rcnd-ap-aocy time spent for Advance Care Planning in explanation/discussion of Advance Directives.* Following people are present during the meeting: patient and nursing.* Decisions reached: DNR/DNI, LIMITED MEDICAL INTERVENTION, SEND TO HOSPITAL IF NECESSARY, NO FEEDING TUBE, OK TO USE ANTIBIOTICS AND IV FLUIDS NEEDED. Name Value Range Interpretation Code Description Data Karen rce(s) Supporting Document(s) ID Date Data Source [id number] 01/23/2020 06:21:00 AM [facility] Name Value Range Interpretation Code Description Data Karen rce(s) Supporting Document(s) GLUCOSE 190 mg/dL 74-106 H [facility] BLOOD UREA NITROGEN 39 mg/dL 7-18 H [facility] CREATININE 1.0 mg/dL 0.6-1.0 [facility] SODIUM 142 mmol/L 136-145 [facility] POTASSIUM 4.0 mmol/L 3.5-5.1 [facility] CHLORIDE 100 mmol/L 98-107 [facility] CO2 38 mmol/L 21-32 H [facility] CALCIUM 8.7 mg/dL 8.5-10.1 [facility] ANION GAP 4.0 mmol/L 5-12 L [facility] GLOMERULAR FILTRATION RATE 52 mL/min [facility] GFR IS CALCULATED IN mL/min/1.73m2 VALENCIA L FUNCTION: >90MILDLY DECREASED: 60-89MILDY TO MODERATELY DECREASED: 45-59 MODERATELY TO SEVERELY DECREASED: 30-44SEVERELY DECREASED: 15-29RENAL FAILURE: <15 ID Date Data Source [id number] 01/23/2020 06:17:00 AM [facility] Name Value Range Interpretation Code Description Data [facility] rce(s) Supporting Document(s) HGBA1C 9.0 % 3.8-5.6 H [facility] Diabetic > or = to 6.5%Prediabetes 5.7-6 .4%Normal <5.7 ID Date Data Source [id number] 01/23/2020 06:06:00 AM [facility] Name Value Range Interpretation Code Description Data Karen rce(s) Supporting Document(s) WHITE BLOOD COUNT 10.8 K/mm3 4.0-10.0 H [facility] matt RED BLOOD COUNT 4.49 M/mm3 4.00-5.50 [facility] HEMOGLOBIN 11.5 gm/dL 12.0-16.0 L [facility] HEMATOCRIT 39.7 % 36.0-48.8 [facility] MEAN CELL VOLUME 88.4 fl 80-96 [facility] MEAN CORPUSCULAR HEMOGLOBIN 25.6 pg 27.0-31.0 L [facility] MEAN CORPUSCULAR HGB CONC 29.0 g/dl 32.0-36.0 L [facility] RED CELL DISTRIBUTION WIDTH 20.6 % 10.0-14.5 H [facility] PLATELET COUNT 312 K/mm3 172-450 [facility] ID Date Data Source [id number] 01/22/2020 07:16:00 PM EST [facility] HistoryChief Complaint/Admit Reasonweak ness, dyspnea and leg swellingHistory of Presenting Kqolkyv81 yo female that presented through the ED yesterday for increased SHORTNESS OF BREATH, BILATERAL LE EDEMA. (MILD SOB/FERRO and bilateral LE edema). Is still present after being treated overnight as OBS for diuresis. Quality not described as pressure, tightness, indigestion, burning or aching. Quality not described as sharp, "pain" or well localized. No nausea, vomiting or diaphoresis. She has had mild difficulty breathing (some mild sob/ferro, but not requiring oxygen supplementation). There has been no orthopnea or wheezing. The patient has also had paroxysmal nocturnal dyspnea. I spoke to her daughter Noelle by phone and she says that her symptoms have gradually gotten worse for last several days. Recent medical care: The patient was seen recently and hospitalized (November 2019) for similar symptoms. H/o: Afib not on anticoagulation (Daughter unsure why), ?CHF, s/p left rad mastectomy from left breast cancer and resultant chronic left arm lymphedema, HTN, HLD, DM2 and Iron def Past Medical/Surgical HistoryPast Medical/Surgical HistoryMedical Problems Acute decompensated heart failure Acute pyelonephritis Atrial fibrillation Bilateral lower extremity edema Breast cancer Colon cancer Diabetes Dyspnea Full code status History of colorectal cancer History of gastroesophageal reflux (GERD) History of GI bleed Hyperlipidemia Hypertension Hypoalbuminemia Iron deficiency anemia Lymphedema of left arm Pulmonary hypertension Severe aortic stenosis by prior echocardiogram Squamous cell carcinomaSurgical Problems H/O ileostomy History of left cataract surgery History of left mastectomy History of tonsillectomy and adenoidectomy History of vein stripping Hx of colectomy Reconciled Home Med ListSee Reconciled Home Medication List AllergiesCoded Allergies:No Known Drug Allergies (02/27/17) Family history non contributory d/t advanced ageSocial History lives with family, quit smoking, no alcohol use Review of SystemsConstitutionalReports: Generalized weakness, Fatigue. Denies: See HPI, Fever, Chills, Sweats. SkinDenies: rash, abrasion, bruising. EyesDenies: redness, visual loss/blurred, swelling. ENTDenies: sore throat, hearing loss, voice change (denies dysphagia or choking). RespiratoryReports: See HPI, dyspnea, shortness of breath, PND. Denies: productive cough, wheezing, hemoptysis. CardiovascularReports: dyspnea on exertion, edema, PND. Denies: chest pain, orthopnea. GastrointestinalDenies: nausea, vomiting, diarrhea, melena, hematochezia. GenitourinaryDenies: dysuria, flank pain, hematuria. MusculoskeletalDenies: extremity pain, extremity swelling, joint pain, myalgias. HematologyDenies: bleeding, bruising, petechiae. EndocrineReports: diabetic. Denies: cold intolerance, heat intolerance, polydipsia. NeurologicalDenies: headache, lightheaded, numbness, slurred speech. PsychDenies: agitation, anxiety, delusional, depression. Exam Physical ExaminationOther:Appearance: Alert. Oriented X3. No acute distress. Eyes: Pupils equal, round and reactive to light. Eyes normal inspection. ENT: Ears normal. Nose normal. Pharynx normal. Neck: Normal inspection. Neck supple. CVS: Abnormal rhythm, which is irregularly irregular. No cardiac murmur. Respiratory: Decreased air movement in the bases bilaterally. Crackles present in the bases bilaterally. Abdomen: Soft and nontender. Bowel sounds normal. No mass. Back: Normal external inspection. Skin: Skin warm and dry. (some vague bruising, signs of chronic vasc changes ofthe lower extremities). Extremities: Bilateral moderate 3+ pitting edema of the lower extremities involving both feet, both ankles and both lower legs to mid shins. Some mild bruising anterior shins. No calf tenderness. Neuro: Oriented X 3. No alteration in mental status. No cranial nerve deficit. No motor deficit. No sensory deficit. EKG time: 16:16 01/21/2020. Rate: 83. Atrial fibrillation (narrow-complex) (ventricular rate 83). Normal QT. No ST elevation. CXR 2view (01/21/2020)Newly developed lhje-ww-jktbjzof cardiomegaly without PVH and small bilateral effusions. Numerous left-sided meeta Laboratory Tests: UA CULTURE IF INDICATED: (DEXTER: 01/21/2020 17:45) ( [facility] 01/21/2020 17:51) New Order URINE SOURCE? URINE, CLEAN CATCHTSYSORDER [id number] Test Result Flag Units (Reference) URINE COLOR. YELLOW URINE APPEARANCE CLEAR URINE GLUCOSE (UA) 1000 H mg/dL (NEGATIVE) GREATER THAN URINE BILIRUBIN NEGATIVE (NEGATIVE) URINE KETONE NEGATIVE mg/dL (NEGATIVE) SPECIFIC GRAVITY,URINE 1.010 (1.001-1.035) URINE BLOOD NEGATIVE (NEGATIVE) PH,URINE 5.0 (5.0-9.0) URINE PROTEIN NEGATIVE mg/dL (NEGATIVE) URINE UROBILINOGEN NORMAL(0.2-1) mg/dL (0-1) URINE NITRATE NEGATIVE (NEGATIVE) URINE LEUKOCYTE ESTERASE NEGATIVE (NEGATIVE) COVID-19 IN-HOUSE: (DEXTER: 01/21/2020 16:43) ( [facility] 01/21/2020 17:04) New Order TSYSORDER [id number] Test Result Flag Units (Reference) COVID-19 NEGATIVE (NEGATIVE) Negative results should be treated as presumptive and, ifinconsistent with clinical signs and symptoms or necessaryfor patient management, should be testedwith differentauthorized or cleared molecular tests.Negative results do not preclude SARS-CoV-2 infection andshould not be used as the sole basis for patient managementdecisions.This is a rapid molecular in vitro diagnostic test utilizingan isothermal nucleic acid amplification technology intendedfor the qualitative detection of nucleic acid from the SARS-CoV-2 viral RNA in direct nasal, nasopharyngeal orthroat swabs from individuals who are suspected of COVID-19.Results are for the indentification of SARS-CoV-2 RNA. [id number]-[id number]-5 R NA is generally detectable in respiratorysamples during the actue phase of infection. CBC w Diff: (DEXTER: 01/21/2020 16:05) ( MsgRcvd 01/21/2020 16:23) New Order TSYSORDER [id number] Test Result Flag Units (Reference) WHITE BLOOD COUNT 13.1 H K/mm3 (4.0-10.0) RED BLOOD COUNT 4.19 M/mm3 (4.00-5.50) HEMOGLOBIN 10.8 L gm/dL (12.0-16.0) HEMATOCRIT 36.4 % (36.0-48.8) MEAN CELL VOLUME 86.9 fl (80-96) MEAN CORPUSCULAR HEMOGLOBIN 25.8 L pg (27.0-31.0) MEAN CORPUSCULAR HGB CONC 29.7 L g/dl (32.0-36.0) RED CELL DISTRIBUTION WIDTH 19.8 H % (10.0-14.5) PLATELET COUNT 333 K/mm3 (172-450) MEAN PLATELET VOLUME 9.1 fl (9.0-13.0) GRAN % 87.4 H % (50- 80.0) IG% 0.4 H % (0.0-0.2) LYMPH % 5.8 L % (25.0-50.0) MONO % 6.2 % (2.0-10.0) EOS % 0.1 % (0-5.0) BASO % 0.1 % (0.0-2.0) GRAN # 11.5 H K/mm3 (2.0-8.00) IG# 0.1 K/mm3 (0.0-0.2) LYMPH # 0.8 L K/mm3 (1.0-5.0) MONO # 0.8 K/mm3 (0.10-1.20) EOS # 0.0 K/mm3 (0.0-0.5) BASO # 0.0 K/mm3 (0.0-0.2) PT with INR: (DEXTER: 01/21/2020 16:05) ( MsgRcvd 01/21/2020 16:34) New Order Test Result Flag Units (Reference) PROTHROMBIN TIME (PATIENT) 10.4 SECONDS (9.1-11.6) INR 1.00 (0.87-1.06) PARTIAL THROMBOPLASTIN TIME 21.7 SECONDS (21.2-27.3) Troponin-I: (DEXTER: 01/21/2020 16:05) ( MsgRcvd 01/21/2020 17:06) New Order Test Result Flag Units (Reference) GLUCOSE 397 *H mg/dL (74-106) BLOOD UREA NITROGEN 41 *H mg/dL (7-18) CREATININE 1.2 H mg/dL (0.6-1.0) SODIUM 136 mmol/L (136-145) POTASSIUM 4.0 mmol/L (3.5-5.1) CHLORIDE 95 L mmol/L (98-107) CO2 32 mmol/L (21-32) CALCIUM 9.1 mg/dL (8.5-10.1) ANION GAP 9.0 mmol/L (5- 12) GLOMERULAR FILTRATION RATE 42 mL/min GFR IS CALCULATED IN mL/min/1.18n0NIGNCW FUNCTION: >90MILDLY DECREASED: 60-89MILDY TO MODERATELY DECREASED: 45-59 MODERATELY TO SEVERELY DECREASED: 30-44SEVERELY DECREASED: 15-29RENAL FAILURE: <15 AST 12 L U/L (15-37) ALT 36 U/L (12-78) ALKALINE PHOSPHATASE 95 U/L (46-116) TOTAL BILIRUBIN 0.7 mg/dL (0.2-1.0) TOTAL PROTEIN 6.4 g/dl (6.4-8.2) ALBUMIN 3.4 gm/dL (3.4-5.0) TROPONIN I 0.018 ng/mL (0.0- 0.056) B-TYPE NATRIURETIC PEPTIDE 2718 *H pg/ml (0-450) Assessment/PlanProblem List 1. Acute decompensated heart failure A&PWill admit for net negative IV lasix to 2L/day, fluid restrict to 1800cc/day.bolden catheter for strict I/Os, daily weightswill request records from recent hospitalization at [facility] and look for recent Echoto determine EF. Records from [facility] received:2D Echo on 12/10/2019Diastolic Dysfunction with preserved EF: LVEF 60%Severe Aortic Stenosis Of note: Cardiology commented on Echo report that "although the patient does have severe aortic stenosis, her chief determinate of her life expediency is hersevere pulmonary hypertension and right heart failure. Her prognosis is guarded and measured in months rather than years." Will plan to discuss these findings further with the patient and her family to further discuss goals of therapy and further bridge advanced directives. 2. Dyspnea A&Plikely 2/2 decompensated CHFSupplement oxygen as needed with saturation titration to >92% 3. Bilateral lower extremity edema A&Pkeep legs elevated while in bedACE wraps and change dressings for any wheeping of legs d/t edema 4. Lymphedema of left arm A&Pelevate while in bedshe does not currently have a compression for her arm.Can consider KEITH wrap for comfort. 5. Diabetes A&Pconsistent carb dietFSBS AC/HS with SSIcheck HgA1c 6. Hypertension A&PContinue Norvasc, Atenolol and Enalapril 7. Hyperlipidemia A&Pcontinue with statin 8. Iron deficiency anemi a A&Pcontinue FeSO4 325 mg daily 9. Atrial fibrillation A&Prate controlled but not currently on oral AC.Spoke to daughter about this, she is unsure why.[id number] Score for Atrial Fibrillation Stroke Risk is 6, indicating significant risk of stroke.Will review hospital notes from [facility]. Her daughter says her cardiologis is in [place], [place]. We may try to reach him friday as well. Records received from [facility]:Patient has history of GI bleed on XareltoWill discuss this further with family and consider discussing with her OP Design Engineering Manager 10. History of GI bleed A&Pstable h/h, no complaints of hematochezia/melena or hematemesis 11. History of gastroesophageal reflux (GERD) A&Pstabel and not currently on PPIc/t monitor 12. History of colorectal cancer A&Pfollow OP with PCP 13. Breast cancer A&Pf/u OP with PCP 14. Pulmonary hypertension A&PShe likely has associated cor pulmonale.will likely need to be cautious not to over diurese since she is dependent on Right heart filling pressures. 15. Severe aortic stenosis by prior echocardiogram A&Pper [facility] Cardiology reading of ECHO; this further compounds her medical conditions and care home prognosis is guarded. Will plan to discuss further withpatient/family and may require further input from her OP Design Engineering Manager at [facility] [employer]. At the least she may qualify for palliative care. DIET Consistent Carb. 45gActivity OOB as tolerated w/assistPatient Condition StablePlan discussed with patient (findings in morning.), healthcare POA, will discussfindings and facilitate discussion regarding patient's/family's wishes regardinggoals of treatment and further advanced directives tomorrow. Noelle (daughter in-law) Debo Montejo (daughter and HCP): [phone] Care Planning* 5 minutes of zlaq-sd-jmbd time spent for Advance Care Planning in explanation/discussion of Advance Directives.* Following people are present during the meeting: patient only.* Decisions reached: currently no change.Will need to follow up on discussions with patient and HCP. Prolong Service TimeThere was considerable uncertainty with the patient's home medication list.Between speaking to Daughter and [facility] in [place], [place]; I believe her home medications are: Xarelto 20mg BID (currently on hold until we can determine her sales office assistant recommendation and PCP regarding any recent GI bleed.Combivent inhaler as directed (will substitute albuteral inh and atrovent inh -since non- formulary)Omeprazole 40 mg daily (continue)Carvdiolol 6.25mg daily (replacing Atenolol 100mg daily)Ditiazem CD 180mg daily (replacing Norvasc 5mg daily)Enalapril 20mg daily (continue)Lasix 20mg bid (held while on net negative IV Lasix) -? HCTZ as OP -will not restart thisPravastatin 40 mg daily (continue)ASA 81mg daily (continue for now until we can determine her AC status) VTE ProphylaxisVTE Prophylaxis: SC Heparin, but consideration for full dose AC. Name Value Range Interpretation Code Description Data Karen [facility](s) Supporting Document(s) ID Date Data Source [id number] 01/22/2020 06:25:00 PM EST [facility] Name Value Range Interpretation Code Description Data Karen e(s) Supporting Document(s) GLUCOSE 232 mg/dL 74-106 H [facility] BLOOD UREA NITROGEN 41 mg/dL 7-18 *H [facility] ital CREATININE 1.2 mg/dL 0.6-1.0 H [facility] SODIUM 139 mmol/L 136-145 [facility] POTASSIUM 3.2 mmol/L 3.5-5.1 L [facility] CHLORIDE 99 mmol/L 98-107 [facility] CO2 30 mmol/L 21-32 [facility] CALCIUM 8.8 mg/dL 8.5-10.1 [facility] ANION GAP 10.0 mmol/L 5-12 [facility] GLOMERULAR FILTRATION RATE 42 mL/min [facility] GFR IS CALCULATED IN mL/min/1.73m2 VALENCIA L FUNCTION: >90MILDLY DECREASED: 60-89MILDY TO MODERATELY DECREASED: 45-59 MODERATELY TO SEVERELY DECREASED: 30-44SEVERELY DECREASED: 15-29RENAL FAILURE: <15 ID Date Data Source [id number] 01/21/2020 05:50:00 PM [facility] ital TSYSORDER [id number] Name Value Range Interpretation Code Description Data Karen rce(s) Supporting Document(s) URINE COLOR. [facility] URINE APPEARANCE CLEAR [facility] URINE GLUCOSE (UA) 1000 mg/dL NEGATIVE H [facility] ital GREATER THAN URINE BILIRUBIN NEGATIVE NEGATIVE [facility] URINE KETONE NEGATIVE mg/dL NEGATIVE [facility] al SPECIFIC GRAVITY,URINE 1.010 1.001-1.035 [facility] URINE BLOOD NEGATIVE NEGATIVE [facility] PH,URINE 5.0 5.0-9.0 [facility] URINE PROTEIN NEGATIVE mg/dL NEGATIVE [facility] URINE UROBILINOGEN NORMAL(0.2-1) mg/dL 0-1 [facility] URINE NITRATE NEGATIVE NEGATIVE [facility] URINE LEUKOCYTE ESTERASE NEGATIVE NEGATIVE [facility] ID Date Data Source [id number] 01/21/2020 05:07:00 [facility] OF EXAMINATION: 01/21/2020 16:08 EST CHEST 2 VIEWS HISTORY: Shortness of breath TECHNIQUE: PA and lateral radiographs of the chest COMPARISON: 12/09/2019 FINDINGS: Newly developed aibg-ys-oyfxqlsj cardiomegaly with no pulmonary venoushypertension is noted. Lungs are clear and well-expanded. Moderate COPD isunchanged. Small bilateral effusions are appreciated. IMPRESSION: Newly developed rkoa-yz-siabzsmk cardiomegaly without PVH and small bilateraleffusions. Numerous left-sided meeta Electronically signed in PS360 by: Lindsay Mir M.D. 01/21/2020 17:01 EST Name Value Range Interpretation Code Description Data Karen rce(s) Supporting Document(s) ID Date Data Source [id number] 01/21/2020 04:43:00 PM EST [facility] Name Value Range Interpretation Code Description Data Karen rce(s) Supporting Document(s) COVID-19 [facility] This lab was ordered by [facility] and reported by [facility]. ID Date Data Source [id number] 01/21/2020 05:03:00 PM EST [facility] TSYSORDER [id number] Name Value Range Interpretation Code Description Data Karen rce(s) Supporting Document(s) COVID-19 NEGATIVE NEGATIVE [facility] Negative results should be treated as pr esumptive and, ifinconsistent with clinical signs and symptoms or necessaryfor patient management, should be tested with differentauthorized or cleared molecular tests.Negative results do not preclude SARS-CoV-2 infection andshould not be used as the sole basis for patient managementdecisions.This is a rapid molecular in vitro diagnostic test utilizingan isothermal nucleic acid amplification technology intendedfor the qualitative detection of nucleic acid from the SARS-CoV-2 viral RNA in direct nasal, nasopharyngeal orthroat swabs from individuals who are suspected of COVID-19.Results are for the indentification of SARS-CoV-2 RNA. JeyMZQN-TjA-5 RNA is generally detectable in respiratorysamples during the actue phase of infection. ID Date Data Source [id number] 01/21/2020 05:04:00 PM EST [facility] TSYSORDER [id number] Name Value Range Interpretation Code Description Data Karen rce(s) Supporting Document(s) TROPONIN I 0.018 ng/mL 0.0-0.056 [facility] ID Date Data Source [id number] 01/21/2020 05:04:00 PM EST [facility] TSYSORDER [id number] R [id number] Name Value Range Interpretation Code Description Data Karen rce(s) Supporting Document(s) B-TYPE NATRIURETIC PEPTIDE 2718 pg/ml 0-450 *H [facility] ID Date Data Source [id number] 01/21/2020 05:04:00 PM EST [facility] TSYSORDER [id number] Name Value Range Interpretation Code Description Data Karen rce(s) Supporting Document(s) GLUCOSE 397 mg/dL 74-106 *H [facility] BLOOD UREA NITROGEN 41 mg/dL 7-18 *H [facility] ital CREATININE 1.2 mg/dL 0.6-1.0 H [facility] SODIUM 136 mmol/L 136-145 [facility] POTASSIUM 4.0 mmol/L 3.5-5.1 [facility] CHLORIDE 95 mmol/L 98-107 L [facility] CO2 32 mmol/L 21-32 [facility] CALCIUM 9.1 mg/dL 8.5-10.1 [facility] ANION GAP 9.0 mmol/L 5-12 [facility] GLOMERULAR FILTRATION RATE 42 mL/min [facility] GFR IS CALCULATED IN mL/min/1.73m2 VALENCIA L FUNCTION: >90MILDLY DECREASED: 60-89MILDY TO MODERATELY DECREASED: 45-59 MODERATELY TO SEVERELY DECREASED: 30-44SEVERELY DECREASED: 15-29RENAL FAILURE: <15 AST 12 U/L 15-37 [facility] ALT 36 U/L 12-78 [facility] ALKALINE PHOSPHATASE 95 U/L 46-116 [facility] pital TOTAL BILIRUBIN 0.7 mg/dL 0.2-1.0 [facility] TOTAL PROTEIN 6.4 g/dl 6.4-8.2 [facility] ALBUMIN 3.4 gm/dL 3.4-5.0 [facility] ID Date Data Source [id number] 01/21/2020 04:33:00 PM [facility] Name Value Range Interpretation Code Description Data Karen rce(s) Supporting Document(s) PARTIAL THROMBOPLASTIN TIME 21.7 SECONDS 21.2-27.3 [facility] ID Date Data Source [id number] 01/21/2020 04:33:00 PM [facility] Name Value Range Interpretation Code Description Data Karen rce(s) Supporting Document(s) PROTHROMBIN TIME (PATIENT) 10.4 SECONDS 9.1-11.6 [facility] INR 1.00 0.87-1.06 [facility] ID Date Data Source [id number] 01/21/2020 04:22:00 PM [facility] TSYSORDER [id number] Name Value Range Interpretation Code Description Data Karen rce(s) Supporting Document(s) WHITE BLOOD COUNT 13.1 K/mm3 4.0-10.0 H [facility] matt RED BLOOD COUNT 4.19 M/mm3 4.00-5.50 [facility] HEMOGLOBIN 10.8 gm/dL 12.0-16.0 L [facility] HEMATOCRIT 36.4 % 36.0-48.8 [facility] MEAN CELL VOLUME 86.9 fl 80-96 [facility] MEAN CORPUSCULAR HEMOGLOBIN 25.8 pg 27.0-31.0 L [facility] MEAN CORPUSCULAR HGB CONC 29.7 g/dl 32.0-36.0 L [facility] RED CELL DISTRIBUTION WIDTH 19.8 % 10.0-14.5 H [facility] PLATELET COUNT 333 K/mm3 172-450 [facility] MEAN PLATELET VOLUME 9.1 fl 9.0-13.0 [facility] pital GRAN % 87.4 % 50-80.0 H [facility] IG% 0.4 % 0.0-0.2 H [facility] LYMPH % 5.8 % 25.0-50.0 L [facility] MONO % 6.2 % 2.0-10.0 [facility] EOS % 0.1 % 0-5.0 [facility] BASO % 0.1 % 0.0-2.0 [facility] GRAN # 11.5 K/mm3 2.0-8.00 H [facility] IG# 0.1 K/mm3 0.0-0.2 [facility] LYMPH # 0.8 K/mm3 1.0-5.0 L [facility] MONO # 0.8 K/mm3 0.10-1.20 [facility] EOS # 0.0 K/mm3 0.0-0.5 [facility] BASO # 0.0 K/mm3 0.0-0.2 [facility] ID Date Data Source [id number] 12/10/2019 02:06:00 AM EDT [facility] Patient: OSKAR DUGAN Observation Report - [facility].VisitID: [id number] [place] [address] [phone], FRegistration Date/Time: 12/09/2019 16:03 Weight:58.5 kg (S). Height/Length:64 inches (S). BMI:22.2 PAST HISTORYMedications:Furosemide Oral unk, 2x a day, last dose today.Jardiance Oral (Tablet 10 mg) 1 tablet, daily, last dose today.Atenolol Oral 100 mg, daily, last dose today.amLODIPine Besylate Oral 5 mg, daily, last dose today.Combivent Respimat Inhalation (Aerosol Solution 20-100 mcg/act), 4x a day as needed, last dose today.Pravastatin Sodium Oral 40 mg, 4x week, last dose yesterday.Enalapril Maleate Oral 20 mg, daily, last dose today.Ferrous Sulfate Oral 325 mg, daily, last dose today. Allergies:No Known Drug Allergies. FAMILY HISTORY(non contributory). (Electronically signed by Sae Ingram PA-C 12/09/2019 18:34) Name Value Range Interpretation Code Description Data Karen rce(s) Supporting Document(s) ID Date Data Source [id number] 12/09/2019 09:02:00 PM EDT [facility] TSYSORDER [id number] Name Value Range Interpretation Code Description Data Karen rce(s) Supporting Document(s) Adenovirus Not Detected Detected Not [facility] Coronavirus 229E Not Detected Detected Not [facility] Coronavirus HKU1 Not Detected Detected Not [facility] Coronavirus NL63 Not Detected Detected Not [facility] Coronavirus OC43 Not Detected Detected Not [facility] Sars Cov 2 Not Detected Detected Not [facility] Human Metapneumovirus Not Detected Detected Not [facility] Human Rhinovirus Not Detected Detected Not [facility] Influenza A Not Detected Detected [facility] Influenza B Not Detected Detected [facility] Parainfluenza Virus 1 Not Detected Detected Not [facility] Parainfluenza Virus 2 Not Detected Detected Not [facility] Parainfluenza Virus 3 Not Detected Detected Not [facility] Parainfluenza Virus 4 Not Detected Detected Not [facility] Respiratory Syncytial Virus Not Detected Detected Not [facility] Bordetella parapertus ([id number]) Not Detected Detected Not [facility] Bordetella pertussis (ptxP) Not Detected Detected Not [facility] Chlamydia pneumoniae Not Detected Detected Not [facility] Mycoplasma pneumoniae Not Detected Detected Not [facility] The Above results have been determined b y using the TORCHmolecular FilmArray system.FilmArray is an automated in vitro diagnostic system thatutilizes nested multiplex Polymerase Chain Reaction (PCR)and high-resolution melting analysis to detect and identifymultiple nucleic acid targets from clinical specimens. ID Date Data Source [id number] 12/09/2019 05:05:00 PM EDT [facility] DATE OF EXAMINATION: 12/09/2019 16:31 EDT CHEST 1 VIEW HISTORY: Shortness of breath TECHNIQUE: Single frontal radiograph of chest COMPARISON: CT scan of 10/28/2019 FINDINGS: No evidence of focal consolidation, pneumothorax or large pleural effusion.Lungs are clear. Mediastinal structures are unremarkable. No aggressive osseouslesions. Numerous metallic meeta are seen in the left lateral and anteriorchest wall region. IMPRESSION: No focal consolidation. Electronically signed in PS360 by: Lindsay Mir M.D. 12/09/2019 17:00 EDT Name Value Range Interpretation Code Description Data Karen rce(s) Supporting Document(s) ID Date Data Source [id number] 12/09/2019 05:59:00 PM EDT [facility] TSYSORDER [id number] Name Value Range Interpretation Code Description Data Karen rce(s) Supporting Document(s) BLOOD TYPE ABO A [facility] RH TYPE NEGATIVE [facility] ANTIBODY SCREEN NEGATIVE [facility] CROSSMATCH COMPATIBLE [facility] SEE TRANSFUSION RECORD IN [id number] O NEG IS=0UNITS ARE READY FOR TRANSFUSION CROSSMATCH COMPATIBLE [facility] SEE TRANSFUSION RECORD IN [id number] O NEG IS=0UNITS ARE READY FOR TRANSFUSION ID Date Data Source [id number] 12/09/2019 05:22:00 PM EDT [facility] TSYSORDER [id number] Name Value Range Interpretation Code Description Data Karen rce(s) Supporting Document(s) MAGNESIUM 2.2 mg/dL 1.8-2.4 [facility] ID Date Data Source [id number] 12/09/2019 05:22:00 PM EDT [facility] l TSYSORDER [id number] Name Value Range Interpretation Code Description Data Karen rce(s) Supporting Document(s) TROPONIN I 0.024 ng/mL 0.0-0.056 [facility] ID Date Data Source [id number] 12/09/2019 05:22:00 PM T [facility] TSYSORDER [id number] Name Value Range Interpretation Code Description Data Karen rce(s) Supporting Document(s) GLUCOSE 394 mg/dL 74-106 *H [facility] BLOOD UREA NITROGEN 23 mg/dL 7-18 H [facility] ital CREATININE 1.1 mg/dL 0.6-1.0 H [facility] SODIUM 140 mmol/L 136-145 [facility] POTASSIUM 2.7 mmol/L 3.5-5.1 L [facility] CHLORIDE 98 mmol/L 98-107 [facility] CO2 41 mmol/L 21-32 *H [facility] CALCIUM 8.5 mg/dL 8.5-10.1 [facility] ANION GAP 1.0 mmol/L 5-12 L [facility] GLOMERULAR FILTRATION RATE 47 mL/min [facility] GFR IS CALCULATED IN mL/min/1.73m2 VALENCIA L FUNCTION: >90MILDLY DECREASED: 60-89MILDY TO MODERATELY DECREASED: 45-59 MODERATELY TO SEVERELY DECREASED: 30-44SEVERELY DECREASED: 15-29RENAL FAILURE: <15 AST 9 U/L 15-37 L [facility] ALT 17 U/L 12-78 [facility] ALKALINE PHOSPHATASE 72 U/L 46-116 [facility] pital TOTAL BILIRUBIN 0.7 mg/dL 0.2-1.0 [facility] TOTAL PROTEIN 6.3 g/dl 6.4-8.2 L [facility] ALBUMIN 3.4 gm/dL 3.4-5.0 [facility] ID Date Data Source [id number] 12/09/2019 05:11:00 PM [facility] Name Value Range Interpretation Code Description Data Karen rce(s) Supporting Document(s) PARTIAL THROMBOPLASTIN TIME 22.5 SECONDS 21.4-30.2 [facility] ID Date Data Source [id number] 12/09/2019 05:11:00 PM [facility] Name Value Range Interpretation Code Description Data Karen rce(s) Supporting Document(s) PROTHROMBIN TIME (PATIENT) 11.9 SECONDS 9.2-11.6 H [facility] INR 1.14 0.87-1.06 [facility] ID Date Data Source [id number] 12/09/2019 05:04:00 PM EDT [facility] TSYSORDER [id number] Name Value Range Interpretation Code Description Data Karen rce(s) Supporting Document(s) WHITE BLOOD COUNT 7.8 K/mm3 4.0-10.0 [facility] RED BLOOD [facility] 2.98 M/mm3 4.00-5.50 L [facility] HEMOGLOBIN 7.6 gm/dL 12.0-16.0 L [facility] HEMATOCRIT 26.8 % 36.0-48.8 L [facility] MEAN CELL VOLUME 89.9 fl 80-96 [facility] MEAN CORPUSCULAR HEMOGLOBIN 25.5 pg 27.0-31.0 L [facility] MEAN CORPUSCULAR HGB CONC 28.4 g/dl 32.0-36.0 L [facility] RED CELL DISTRIBUTION WIDTH 16.8 % 10.0-14.5 H [facility] PLATELET COUNT 295 K/mm3 172-450 [facility] MEAN PLATELET VOLUME 9.5 fl 9.0-13.0 [facility] pital GRAN % 84.0 % 50-80.0 H [facility] IG% 0.3 % 0.0-0.2 H [facility] LYMPH % 7.3 % 25.0-50.0 L [facility] MONO % 6.7 % 2.0-10.0 [facility] EOS % 1.2 % 0-5.0 [facility] BASO % 0.5 % 0.0-2.0 [facility] GRAN # 6.6 K/mm3 2.0-8.00 [facility] IG# 0.0 K/mm3 0.0-0.2 [facility] LYMPH # 0.6 K/mm3 1.0-5.0 L [facility] MONO # 0.5 K/mm3 0.10-1.20 [facility] EOS # 0.1 K/mm3 0.0-0.5 [facility] BASO # 0.0 K/mm3 0.0-0.2 [facility] ID Date Data Source [id number] 12/09/2019 12:00:00 AM EDT [facility] Name Value Range Interpretation Code Description Data Karen rce(s) Supporting Document(s) 2019 Novel Coronavirus RNA [facility] This lab was ordered by [facility] L aboratory and reported by [facility]. ID Date Data Source [id number] 11/10/2019 05:56:00 AM EDT [facility] NAME: OSKAR DUGAN 2 88 MRUN: [id number] LOC: 4E ACCT: [id number] SRV: JAIME Moe.#: RPT#: [id number] XR CHEST 2 VIEW PA/LAT [id number] Date/Time:11/10/19 0500 Dx: PNA - RLL Order Phy: Preet Jiang MD CHEST TWO VIEWS HISTORY: FOLLOWUP PNEUMONIA. COMPARISON: 11/08/19 FINDINGS: Hyperinflation. Flattened hemidiaphragms. Chronic interstitial changes. No acute infiltrate. Cardiac silhouette upper limits of normal. Multiple surgical clips left axilla and chest wall. IMPRESSION: COPD CHANGES. NO ACUTE INFILTRATE. BORDERLINE CARDIOMEGALY. DICTATED BY: Wallace Esteves DO 10/16 09/03 0556 Electronically Signed By: Wallace Esteves DO 11/10/19 0939 Electronically Co-Signed By: Transcribed By: 0 0716 PACS IMAGE LINK ([facility] USE ONLY) [email or web address] Name Value Range Interpretation Code Description Data Karen rce(s) Supporting Document(s) ID Date Data Source [id number] 11/10/2019 06:15:00 AM EDT [facility] Name Value Range Interpretation Code Description Data Karen rce(s) Supporting Document(s) WBC 8.5 k/UL 4.3-11.0 [facility] nter RBC 3.07 M/UL 4.20-5.40 L [facility] nter HEMOGLOBIN 9.4 G/DL 12.0-16.0 L [facility] C enter HEMATOCRIT 31.4 % 38.0-47.0 L [facility] C enter MCV 102.3 FL 75.0-105.0 [facility] C enter MCH 30.6 PG 26.0-33.0 [facility] Ce nter MCHC 29.9 G/DL 31.0-36.0 L [facility] nter RED CELL DISTRIBUTION WIDTH 18.2 % 11.6-14.6 H [facility] Reference range changed effective 09/15 PLATELET COUNT 264 K/UL 150-400 [facility] MEAN PLATELET VOLUME 9.4 FL 8.7-12.3 [facility] NEUTROPHILS AUTOMATED 77.2 % 47.0-76.0 H [facility] LYMPHOCYTE AUTOMATED 10.9 % 12.0-44.0 L [facility] MONOCYTES AUTOMATED 8.1 % 2.0-12.0 [facility] EOSINOPHILS AUTOMATED 2.8 % 0.0-6.0 [facility] BASOPHILS AUTOMATED 0.6 % 0.0-3.0 [facility] ABS.NEUTROPHILS AUTOMATED 6.56 K/UL 1.50-7.50 [facility] ABS. LYMPHOCYTES AUTOMATED 0.93 K/UL 0.80-2.80 [facility] ABS.MONOCYTES AUTOMATED 0.69 K/UL 0.20-1.[address] [facility] ABS. EOSINOPHILS AUTOMATED 0.24 K/UL 0.20-0.40 [facility] ABS. BASOPHILS AUTOMATED 0.05 K/UL 0.00-0.20 [facility] IMMATURE GRANULOCYTE 0.4 % 0.0-0.6 [facility] ABS IMMATURE GRANULOCYTE 0.03 K/UL 0.00-0.04 [facility] NUCLEATED RBC 0.0 % 0.0-0.0 [facility] e Center ID Date Data Source [id number] 11/10/2019 06:37:00 AM EDT [facility] Name Value Range Interpretation Code Description Data Karen rce(s) Supporting Document(s) SODIUM 136 MMOL/L 136-145 [facility] enter POTASSIUM 4.0 MMOL/L 3.4-5.0 [facility] C enter CHLORIDE 96 MMOL/L 98-107 L [facility] Ce nter CO2 33 MMOL/L 22-29 H [facility] Ce nter ANION GAP 11 MMOL/L 10-20 [facility] Ce nter GLUCOSE 68 MG/DL 70-99 L [facility] Ce nter CREATININE 0.7 MG/DL 0.5-0.9 [facility] C enter BUN 26 MG/DL 6-20 H [facility] nter CALCIUM 8.7 MG/DL 8.8-10.2 L [facility] nter ID Date Data Source [id number] 11/09/2019 06:23:00 AM EDT [facility] Name Value Range Interpretation Code Description Data Karen rce(s) Supporting Document(s) WBC 9.9 k/UL 4.3-11.0 [facility] Ce nter RBC 3.41 M/UL 4.20-5.40 L [facility] nter HEMOGLOBIN 10.5 G/DL 12.0-16.0 L [facility] C enter HEMATOCRIT 35.5 % 38.0-47.0 L [facility] C enter MCV 104.1 FL 75.0-105.0 [facility] C enter MCH 30.8 PG 26.0-33.0 [facility] nter MCHC 29.6 G/DL 31.0-36.0 L [facility] nter RED CELL DISTRIBUTION WIDTH 18.3 % 11.6-14.6 H On [facility] Reference range changed effective 09/15 PLATELET COUNT 279 K/UL 150-400 [facility] MEAN PLATELET VOLUME 9.3 FL 8.7-12.3 [facility] Center NEUTROPHILS AUTOMATED 77.1 % 47.0-76.0 H [facility] LYMPHOCYTE AUTOMATED 11.5 % 12.0-44.0 L [facility] MONOCYTES AUTOMATED 8.5 % 2.0-12.0 [facility] Center EOSINOPHILS AUTOMATED 2.0 % 0.0-6.0 [facility] BASOPHILS AUTOMATED 0.5 % 0.0-3.0 [facility] ABS.NEUTROPHILS AUTOMATED 7.63 K/UL 1.50-7.50 H [facility] ABS. LYMPHOCYTES AUTOMATED 1.14 K/UL 0.80-2.80 [facility] ABS.MONOCYTES AUTOMATED 0.84 K/UL 0.20-1.[address] [facility] ABS. EOSINOPHILS AUTOMATED 0.20 K/UL 0.20-0.40 [facility] ABS. BASOPHILS AUTOMATED 0.05 K/UL 0.00-0.20 [facility] IMMATURE GRANULOCYTE 0.4 % 0.0-0.6 [facility] ABS IMMATURE GRANULOCYTE 0.04 K/UL 0.00-0.04 [facility] NUCLEATED RBC 0.0 % 0.0-0.0 [facility] e Center ID Date Data Source [id number] 11/09/2019 06:58:00 AM EDT [facility] Name Value Range Interpretation Code Description Data Karen rce(s) Supporting Document(s) SODIUM 138 MMOL/L 136-145 [facility] C enter POTASSIUM 4.1 MMOL/L 3.4-5.0 [facility] C enter CHLORIDE 96 MMOL/L 98-107 L [facility] Ce nter CO2 32 MMOL/L 22-29 H [facility] nter ANION GAP 14 MMOL/L 10-20 [facility] Ce nter GLUCOSE 231 MG/DL 70-99 H [facility] nter CREATININE 0.9 MG/DL 0.5-0.9 [facility] C enter BUN 25 MG/DL 6-20 H [facility] nter CALCIUM 9.1 MG/DL 8.8-10.2 [facility] nter ID Date Data Source [id number] 11/08/2019 12:26:00 PM EDT [facility] REQUESTING PHYSICIAN: [*] CONSULTING PHYSICIAN: Dr. Alejo DATE OF CONSULTATION: 11/08/19 REASON FOR CONSULTATION: A fib, shortness of breath. HISTORY OF PRESENT ILLNESS: Ms. Dugan is a pleasant 89 year old woman followed close by my partner Dr. Duarte, in fact he saw her in the office on 11/03/19. She is known to have atrial fibrillation since 07/04 when she presented with shortness of breath, rapid a fib, CHF. She was treated with Xarelto for anticoagulation and Diltiazem for rate control. She has had some leg edema and shortness of breath and her diuretics have been increased from 20 to 40 mg daily in the last two weeks. As of the office visit on 11/02 she reported increased urination and decreased shortness of breath so they decided to leave things as is. Patient was notably hard and hearing and a poor historian per the office notes. Her daughter did most of the talking at that time. Daughter is not present at the moment. PAST MEDICAL HISTORY: 1. Hypertension 2. Diabetes 3. Degenerative joint disease 4. Peripheral vascular disease 5. Gastroesophageal reflux disease 6. COPD 7. Breast cancer 8. Colon cancer 9. Paroxysmal atrial fib PAST SURGICAL HISTORY: 1. Left mastectomy 2. Multiple skin cancers removed 3. Ileostomy with subsequent reversal 4. Cataract removal 5. Tonsillectomy FAMILY HISTORY: [*] SOCIAL HISTORY: , three children. 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 She quit smoking about 7 years ago at the age of 82. ALLERGIES: None CURRENT MEDICATIONS: 1. Combivent 2. Pravastatin 40 3. Analopril 20 4. Diltiazem 180 5. Carbatolol 6.25 b.i.d. 6. Furosemide 20 b.i.d. 7. Jardiance 10 8. Xarelto 20 9. Atenolol 100 REVIEW OF SYSTEMS: Echocardiogram 10/13 showed EF of 50-55% with dilated chambers, mild aortic stenosis. A nuclear stress test 08/30 showed normal profusion and ejection fraction. She reports fatigue and some shortness of breath and leg edema. Denies chest pain, syncope, palpitations, orthopnea, PND, or seizure. No melena or hemotochezia. PHYSICAL EXAMINATION: Height: 5' BMI: 23.6. Weight: 56.6 kilograms Afebrile Pulse: 100-110 irregular. Sats 95% on two liters it was 88% on room air. Neck; No JVD. Lungs: Diminished breath sounds, dullness in the bases. Heart: Irregular Sl-S2 noted. I do not hear a murmur or gallop. Abdomen: Soft, positive bowel sounds. She has 2+ leg edema with venous stasis changes. Neuro: Very hard of hearing. She is rather vague historian. DIAGNOSTIC TESTS: [place] [address], Hct. 39. Platelet count 289. I R: 1.1. Chemistry pane showed sodium of 148. Potassium 3.4. Chloride 98. BUN 20. Creatinine 0.7. Hgb. AlC of 7.5. Transaminase normal.Total cholesterol not tested. Troponin is negative. EKG demonstrated A fib with a rate of 112. Nonspecific ST changes. Possible septal infarct of undetermined age. IMPRESSION: A fib with suboptimal heart rate control. Moderate volume overload. PLAN: The patient does need further diuresis we will need to watch her sodium and electrolytes as we do so. Leg elevation would also be in order. We will need to escalate meds for rate control but will need to clarify what she has been taking because I see she was on Diltiazem, Carbatolol and Atenolol. Probably should only use two of the three. Currently she is on Diltiazem here in the hospital. Will discuss with the hospitalist. JOB #: [id number] DICTATED BY Jitendra Alejo MD 11/08/19 1226 Electronically Signed By Jitendra Alejo MD 11/09/19 1255 Transcribed By [email or web address] 11/08/19 1428 Name Value Range Interpretation Code Description Data Karen rce(s) Supporting Document(s) ID Date Data Source [id number] 11/12/2019 04:06:15 AM EDT [facility] Received: 11/09/2019 at 03:17:00 F: [employer] [facility], [address] [place], [address], SUMI MATHUR MD, PHD Name Value Range Interpretation Code Description Data Karen rce(s) Supporting Document(s) Beta hydroxybutyrate [Moles/volume] in Serum or Plasma 1.45 mmol/L ADULT: 0.28 OR LESS Above high normal [facility] ID Date Data Source [id number] 11/12/2019 04:11:00 AM EDT [facility] TEST PERFORMED AT:[facility] [facility] [place], [place] [address]YVRSUMI MATHUR MD, PHD Name Value Range Interpretation Code Description Data Karen rce(s) Supporting Document(s) BETA-HYDROXYBUTYRATE 1.45 mmol/L A [facility] Reference Range: ADULT: 0.28 OR LESS Abnormal Flag: H ID Date Data Source [id number] 11/08/2019 05:57:00 AM EDT [facility] NAME: OSKAR DUGAN 2 88 MRUN: [id number] LOC: 4E ACCT: [id number] SRV: JAIME O.VRosa#: RPT#: [id number] XR CHEST 1VIEW-(PORTABLE) [id number] Date/Time:11/08/19 0042 Dx: vomiting Order Phy: Layo Nielsen MD X-RAY CHEST AP VIEW HISTORY: VOMITING. COMPARISON: OCTOBER 14, 2019. FINDINGS: Frontal portable view of chest was performed. COPD changes are noted. The lung hadley are unchanged in appearance. Acute pneumonic infiltrate, CHF, pneumothorax or pleural effusion is not seen. There is mild cardiomegaly. There is no acute osseous abnormality. IMPRESSION: NO ACUTE DISEASE OR INTERVAL CHANGE SEEN. COPD. CARDIOMEGALY. DICTATED BY: Fam Benítez MD 0 11/08/1956 Electronically Signed By: Fam Benítez MD 11/08/19556 Electronically Co-Signed By: Transcribed By: MATTHEW. 0 0557 PACS IMAGE LINK ([facility] USE ONLY) [email or web address] Name Value Range Interpretation Code Description Data Karen rce(s) Supporting Document(s) ID Date Data Source [id number] 11/08/2019 05:37:00 AM EDT [facility] NAME: OSKAR DUGAN 1930 88 MRUN: [id number] LOC: 4E ACCT: [id number] SRV: OBVH RPT#: [id number] ELECTROCARDIOGRAM Order Phy: Rosanne Trejo [employer] Date/Time:11/08/19 0500 Dx: AFib Exam Date:Nov 08 2019 05:37:55 Ventricular Rate:112 BPM Atrial Rate:108 BPM QRS Duration:78 ms Q-T Interval:320 ms QTC Calculation(Bazett):436 ms R [place]:76 degrees T [place]:257 degrees Diagnosis:Atrial fibrillation with rapid ventricular response Diagnosis:Septal infarct (cited on or before 19-MAY-2018) Diagnosis:LOW VOLTS Diagnosis:T wave abnormality, consider inferior ischemia Diagnosis:Abnormal ECG Diagnosis:When compared with ECG of 08-NOV-2019 00:32, (Unconfirmed) Diagnosis:Nonspecific T wave abnormality now evident in Anterior leads Diagnosis:Confirmed by Tanner Ibanez MD ([id number]) on 11/08/2019 6:36:59 AM Dictated By:Tanner Ibanez MD Electronically Signed By: Tanner Ibanez MD 11/08/19 0637 Name Value Range Interpretation Code Description Data Karen rce(s) Supporting Document(s) ID Date Data Source [id number] 11/08/2019 09:00:00 AM EDT [facility] Physician Instructions: add to am labs Name Value Range Interpretation Code Description Data Karen rce(s) Supporting Document(s) HEMOGLOBIN A1C 7.5 % 4.8-5.7 H [facility] ID Date Data Source [id number] 11/08/2019 06:24:00 AM EDT [facility] Name Value Range Interpretation Code Description Data Karen rce(s) Supporting Document(s) WBC 19.6 k/UL 4.3-11.0 H [facility] nter RBC 3.87 M/UL 4.20-5.40 L [facility] nter HEMOGLOBIN 11.9 G/DL 12.0-16.0 L [facility] C enter HEMATOCRIT 39.3 % 38.0-47.0 [facility] C enter MCV 101.6 FL 75.0-105.0 [facility] C enter MCH 30.7 PG 26.0-33.0 [facility] nter MCHC 30.3 G/DL 31.0-36.0 L [facility] nter RED CELL DISTRIBUTION WIDTH 17.9 % 11.6-14.6 H [facility] Reference range changed effective 09/15 PLATELET COUNT 289 K/UL 150-400 [facility] MEAN PLATELET VOLUME 9.4 FL 8.7-12.3 [facility] NEUTROPHILS AUTOMATED 94.0 % 47.0-76.0 H [facility] LYMPHOCYTE AUTOMATED 1.4 % 12.0-44.0 L [facility] MONOCYTES AUTOMATED 3.9 % 2.0-12.0 [facility] EOSINOPHILS AUTOMATED 0.1 % 0.0-6.0 [facility] BASOPHILS AUTOMATED 0.3 % 0.0-3.0 [facility] ABS.NEUTROPHILS AUTOMATED 18.44 K/UL 1.50-7.50 H [facility] ABS. LYMPHOCYTES AUTOMATED 0.27 K/UL 0.80-2.80 L [facility] ABS.MONOCYTES AUTOMATED 0.76 K/UL 0.20-1.[address] [facility] ABS. EOSINOPHILS AUTOMATED 0.01 K/UL 0.20-0.40 L [facility] ABS. BASOPHILS AUTOMATED 0.06 K/UL 0.00-0.20 [facility] IMMATURE GRANULOCYTE 0.3 % 0.0-0.6 [facility] ABS IMMATURE GRANULOCYTE 0.06 K/UL 0.00-0.04 H [facility] NUCLEATED RBC 0.0 % 0.0-0.0 [facility] e Center ID Date Data Source [id number] 11/08/2019 06:38:00 AM EDT [facility] Name Value Range Interpretation Code Description Data Karen rce(s) Supporting Document(s) SODIUM 148 MMOL/L 136-145 H [facility] enter POTASSIUM 3.4 MMOL/L 3.4-5.0 [facility] C enter CHLORIDE 98 MMOL/L 98-107 [facility] nter CO2 34 MMOL/L 22-29 H [facility] nter ANION GAP 19 MMOL/L 10-20 [facility] nter GLUCOSE 282 MG/DL 70-99 H [facility] nter CREATININE 0.7 MG/DL 0.5-0.9 [facility] enter BUN 20 MG/DL 6-20 [facility] nter CALCIUM 9.3 MG/DL 8.8-10.2 [facility] nter ID Date Data Source [id number] 11/08/2019 01:20:00 AM EDT [facility] Name Value Range Interpretation Code Description Data Karen rce(s) Supporting Document(s) 2019-nCoV RNA panel by probe and target amplification method [facility] This lab was ordered by [facility] and rep orted by [facility]. ID Date Data Source [id number] 11/08/2019 03:05:00 AM EDT [facility] Name Value Range Interpretation Code Description Data Karen rce(s) Supporting Document(s) RAPID COVID-19 VIRAL RNA NOT DETECTED [facility] Performed by rapid molecular testing uti lizing an isothermalnucleic acid amplification technology for the qualitativedetection of SARS-CoV-2 RNA, which is generally detectablein respiratory samples during the acute phase of infection.This test is intended to be performed on respiratoryspecimens collected from individuals who meet the Centersfor Disease Control and Prevention (CDC) clinical and/orepidemiological criteria for COVID-19 testing.A DETECTED results are indicative of the presence jlEUDM-[id number]-2 RNA; clinical correlation with patient historyand other diagnostic information is necessary to determinepatient infection status. Positive results do not rule outbacterial infection or co-infection with other viruses.Testing facilities within the [place] are required toreport all positive results to the appropriate public healthauthorities.A NOT DETECTED result does not preclude [id number] and should not be used as the sole basis forpatient management decisions.This test has been authorized by the FDA under the EmergencyUse Authorization (EAU)Reference Range=NOT DETECTED ID Date Data Source [id number] 11/08/2019 01:04:00 AM EDT [facility] Hx of Present Ill.-Med. Prob Chief Complaint: Nausea/Vomiting Reason for Visit: VOMITING /PALPS /SOB Time Seen by Provider: 11/08/19 00:31 Source: patient, family Exam Limitations: no limitations Initial Comments-Signs and Symptoms: 11/08/19 01:44 89 yr old presents after vomiting this hilary. Pt admitted 10/14/2019 for chf, rapid a fib, home next day. Daughter reports since she has been home pt has been lethargic and sob, has followed up with pmd and cardiology, reports has doubled Lasix dose about 10 days agoswelling in legs has improved. Seen by cardiology last weekis to have holter monitor. Pt quit smoking at 82 yr old, does use albuterol inhaler. Pt with hx dm, colorectgal cancer 2004, rx with surgical resection, rad rx and chemorx. Left breast mastectomy 1991. Timing/Duration: constant Severity: moderate Modifying Factors: Other: Aggravated By - eating Associated Symptoms: Reports: loss of appetite, nausea, vomiting, shortness of breath, weakness. Denies: fever, chills Allergies: No Known Allergies Allergy (Verified 11/08/19 04:01) Home Medications: Enalapril* [Vasotec*] 20 mg PO BID 01/15/12 [Confirmed 11/08/19] Pravastatin Sodium [Pravachol] 40 mg PO DAILY 01/15/12 [Confirmed 11/08/19] Carvedilol* [Carvedilol] 6.25 mg PO BIDWM #60 tablet 10/15/19 [Confirmed 11/08/19] Diltiazem Cd* [Cardizem CD*] 180 mg PO DAILY #30 capsule 10/15/19 [Confirmed 11/08/19] Furosemide* [Lasix*] 20 mg PO DAILY #30 tablet 10/15/19 [Confirmed 11/08/19] Rivaroxaban* [Xarelto*] 20 mg PO DAILYEVENINGMEAL #30 tablet 10/15/19 [Confirmed 11/08/19] Empagliflozin [Jardiance] 10 mg PO DAILY 11/08/19 [Confirmed 11/08/19] Past History- Medical Problem Nursing Notes Reviewed: Yes General: Reports: congestive heart failure, COPD, other - atrial fibrillation Smoking History: Smoking Status Former smoker Alcohol and Substance Use: Do you drink alcohol? No Do you currently use any No social/recreational drugs? Do you have a history of drug/ No substance abuse, addiction Review of Systems-General Review of Systems Unobtainable Due To: Reports: no limitations Constitutional: Denies: fever, chills EENTM: Reports: no symptoms reported Respiratory: Denies: cough, shortness of breath Cardiac: Denies: chest pain Gastrointestinal/Abdominal: Reports: nausea, vomiting. Denies: abdominal pain, constipated, diarrhea Genitourinary: Denies: dysuria Musculoskeletal: Reports: no symptoms reported Skin: Denies: rash Neurological: Reports: weakness - lethargy Psychiatric: Reports: no symptoms reported Endocrine: Reports: fatigue Hematologic/Lymphatic: Reports: no symptoms reported Immunological/Allergic: Reports: no symptoms reported All Other Systems: Reviewed and Negative Physical Exam-Medical Prob. General Appearance: other - lying on stretcher with eyes closed, o2 sats 86 percent on room air Eye Exam: bilateral eye: PERRL, EOMI Ears, Nose, Throat: normal pharynx Mouth Exam: normal mouth exam, moist oral mucosa Respiratory: no accessory muscle use, normal respiratory effort, crackles/rales - bilateral bibasilar rales, other - o2 sats mid 80's on room air Cardiovascular/Chest: normal peripheral pulses, regular rate, regular rhythm, no murmur GI/Abdominal: normal bowel sounds, soft, no vol guarding, no invol guarding, non tender, no hernia, no masses, no organomegaly Extremity Exam: normal inspection Neurologic: alert, no motor/sensory deficits Skin Exam: normal color, warm, dry Medical Decision Making Differential Diagnosis-Comments: 11/08/19 04:55 hypoxic, ?chf, ?copd, rapid a fib with poor rate control, nausea, vomiting IV Fluids Ordered for Hydration?: No Orders, Meds: Acetaminophen (Tylenol*) 650 mg PO Q4H PRN PRN Reason: PAIN / FEVER Carvedilol (Coreg*) 6.25 mg PO BIDWM [facility] Dextrose (Dextrose 50% Adult Syringe*) 25 gm IVP DIRECTED PRN PRN Reason: BG < 60 IF UNABLE TO TAKE PO Diltiazem HCl (Cardizem Cd*) 180 mg PO DAILY [facility] Enalapril Maleate (Vasotec*) 20 mg PO BID [facility] Furosemide (Lasix*) 20 mg PO DAILY [facility] Glucagon (Glucagon*) 1 mg IM DIRECTED PRN PRN Reason: BG < 60 NO IV ACCESS/NPO Glucose (Glutose-15 Oral Gel*) 15 gm PO DIRECTED PRN PRN Reason: BG < 60 IF ABLE TO TAKE PO Sodium Chloride (Normal Saline*) 500 mls @ 50 mls/hr IV DIRECTED [facility] Insulin Aspart (Novolog*) 0 unit SQ PCHS [facility]; Protocol Non-Formulary Medication (Pravastatin Sodium [Pravachol]) 40 mg PO DAILY [facility] Ondansetron HCl (Zofran*) 4 mg IVP Q6H PRN PRN Reason: NAUSEA / VOMITING Pantoprazole Sodium (Protonix*) 40 mg PO DAILY@0500 [facility] Rivaroxaban (Xarelto*) 20 mg PO DAILYEVENINGMEAL [facility] Discontinued Medications Diltiazem HCl (Cardizem*) 10 mg IVP ONCE ONE Stop: 11/08/19 01:02 Last Admin: 11/08/19 01:06 Dose: 10 mg Documented by: Diltiazem HCl (Cardizem*) 10 mg IVP ONCE ONE Stop: 11/08/19 02:52 Last Admin: 11/08/19 02:54 Dose: 10 mg Documented by: Furosemide (Lasix*) 40 mg IVP ONCE ONE Stop: 11/08/19 02:53 Last Admin: 11/08/19 02:54 Dose: 40 mg Documented by: Ondansetron HCl (Zofran*) 4 mg IVP ONCE ONE Stop: 11/08/19 00:42 Last Admin: 11/08/19 00:51 Dose: 4 mg Documented by: Patient Problems Hypoxia (Acute) Leukocytosis (Acute) A-fib (Chronic) Hematology Interpretation: Elevated - wbc Chemistry Interpretation: Elevated - glucose, pbnp Hospitalist Web Analytics Developer/PCP Name: 11/08/19 01:56 p dar: discussed...will admit Heart Score Age: 65 or older [2] Departure Time of Disposition: 02:00 Disposition: ADMITTED IP TO THIS HOSPITAL Clinical Impression: Rapid atrial fibrillation, Hypoxia Vomiting Qualifiers: Vomiting type: unspecified Vomiting Intractability: non- intractable Leukocytosis Qualifiers: Leukocytosis type: unspecified Qualified Code(s): D72.829 - Elevated white blood cell count, unspecified CHF (congestive heart failure) Qualifiers: Heart failure type: diastolic Heart failure chronicity: unspecified Qualified Code(s): I50.30 - Unspecified diastolic (congestive) heart failure Condition: STABLE Name Value Range Interpretation Code Description Data Karen rce(s) Supporting Document(s) ID Date Data Source [id number] 11/08/2019 03:51:00 AM EDT [facility] Name Value Range Interpretation Code Description Data Karen rce(s) Supporting Document(s) FT4 1.27 NG/DL 0.9-1.7 [facility] enter ID Date Data Source [id number] 11/08/2019 03:51:00 AM EDT [facility] Name Value Range Interpretation Code Description Data Karen rce(s) Supporting Document(s) TSH 6.730 uIU/ML 0.270-4.200 H [facility] ID Date Data Source [id number] 11/08/2019 01:47:00 AM EDT [facility] Name Value Range Interpretation Code Description Data Karen rce(s) Supporting Document(s) PRO-BNP 1247 PG/ML 0-450 H [facility] enter ID Date Data Source [id number] 11/08/2019 01:42:00 AM EDT [facility] Name Value Range Interpretation Code Description Data Karen rce(s) Supporting Document(s) SODIUM 142 MMOL/L 136-145 [facility] C enter POTASSIUM 3.4 MMOL/L 3.4-5.0 [facility] C enter CHLORIDE 95 MMOL/L 98-107 L [facility] Ce nter CO2 32 MMOL/L 22-29 H [facility] Ce nter ANION GAP 18 MMOL/L 10-20 [facility] Ce nter GLUCOSE 270 MG/DL 70-99 H [facility] Ce nter CREATININE 0.8 MG/DL 0.5-0.9 [facility] C enter BUN 18 MG/DL 6-20 [facility] Ce nter CALCIUM 9.8 MG/DL 8.8-10.2 [facility] Ce nter TOTAL PROTEIN 6.8 G/DL 6.4-8.3 [facility] e Center ALBUMIN 4.2 G/DL 3.5-5.2 [facility] Ce nter BILIRUBIN,TOTAL 1.3 MG/DL 0.0-1.2 H [facility] are Center ALKALINE PHOSPHATASE 80 U/L 35-104 [facility] Center AST 16 U/L 0-32 [facility] Ce nter ALT 16 U/L 0-33 [facility] nter ID Date Data Source [id number] 11/08/2019 01:42:00 AM EDT [facility] Name Value Range Interpretation Code Description Data Karen rce(s) Supporting Document(s) LIPASE 24 U/L 13-60 [facility] nter ID Date Data Source [id number] 11/08/2019 01:42:00 AM EDT [facility] Name Value Range Interpretation Code Description Data Karen rce(s) Supporting Document(s) TROPONIN T < 0.01 NG/ML 0.00-0.10 [facility] e Center ID Date Data Source [id number] 11/08/2019 01:45:00 AM EDT [facility] Name Value Range Interpretation Code Description Data Karen rce(s) Supporting Document(s) WBC 15.8 k/UL 4.3-11.0 H [facility] Ce nter RBC 4.09 M/UL 4.20-5.40 L [facility] Ce nter HEMOGLOBIN 12.7 G/DL 12.0-16.0 [facility] C enter HEMATOCRIT 40.9 % 38.0-47.0 [facility] C enter MCV 100.0 FL 75.0-105.0 [facility] C enter MCH 31.1 PG 26.0-33.0 [facility] Ce nter MCHC 31.1 G/DL 31.0-36.0 [facility] Ce nter RED CELL DISTRIBUTION WIDTH 17.7 % 11.6-14.6 H On [facility] Reference range changed effective 09/15 PLATELET COUNT 329 K/UL 150-400 [facility] MEAN PLATELET VOLUME 9.4 FL 8.7-12.3 [facility] NEUTROPHILS AUTOMATED 92.9 % 47.0-76.0 H [facility] LYMPHOCYTE AUTOMATED 2.7 % 12.0-44.0 L [facility] MONOCYTES AUTOMATED 3.2 % 2.0-12.0 [facility] EOSINOPHILS AUTOMATED 0.2 % 0.0-6.0 [facility] BASOPHILS AUTOMATED 0.5 % 0.0-3.0 [facility] ABS.NEUTROPHILS AUTOMATED 14.69 K/UL 1.50-7.50 H [facility] ABS. LYMPHOCYTES AUTOMATED 0.43 K/UL 0.80-2.80 L [facility] ABS.MONOCYTES AUTOMATED 0.51 K/UL 0.20-1.[address] [facility] ABS. EOSINOPHILS AUTOMATED 0.03 K/UL 0.20-0.40 L [facility] ABS. BASOPHILS AUTOMATED 0.08 K/UL 0.00-0.20 [facility] IMMATURE GRANULOCYTE 0.5 % 0.0-0.6 [facility] ABS IMMATURE GRANULOCYTE 0.08 K/UL 0.00-0.04 H [facility] NUCLEATED RBC 0.0 % 0.0-0.0 [facility] ID Date Data Source [id number] 11/08/2019 12:32:00 AM EDT [facility] NAME: OSKAR DUGAN 1930 88 MRUN: [id number] LOC: 4E ACCT: [id number] SRV: OBVH RPT#: [id number] ELECTROCARDIOGRAM Order Phy: Layo Nielsen MD Date/Time:11/08/1940 Dx: vomiting Exam Date:Nov 08 2019 00:32:08 Ventricular Rate:124 BPM Atrial Rate:124 BPM QRS Duration:78 ms Q-T Interval:294 ms QTC Calculation(Bazett):422 ms R [place]:91 degrees T [place]:250 degrees Diagnosis:Atrial fibrillation with rapid ventricular response Diagnosis:VERT AXIS Diagnosis:LOW VOLTS Diagnosis:Septal infarct (cited on or before 19-MAY-2018) Diagnosis:Abnormal ECG Diagnosis:When compared with ECG of 14-OCT-2019 17:01, Diagnosis:SL LEFTWARD AXIS SHIFT Diagnosis:Confirmed by Tanner Ibanez MD ([id number]) on 11/08/2019 6:36:25 AM Dictated By:Tanner Ibanez MD Electronically Signed By: Tanner Ibanez MD 11/08/19 0636 Name Value Range Interpretation Code Description Data Karen rce(s) Supporting Document(s) ID Date Data Source [id number] 11/08/2019 03:27:00 AM EDT [facility] Urine Specimen Collection Method Clean C atchUrine Specimen Collection on Ice NOutput, Urine Amount 200Urine Specimen Collection Container labeled (time/d Urine Specimen Collection Method Clean C atchUrine Specimen Collection on Ice NOutput, Urine Amount 200Urine Specimen Collection Container labeled (time/[place] [address] Shweta Silva M.D., Candy Spreader Helper Laboratory Report Pg 1 PATIENT: OSKAR DUGAN : [birth year] M.R.N.: [id number] DOCTOR: Anna Fowler MD AGE/SEX: 89/F COPIES TO: LOC: 4E 419-W MD Layo Farris, MD Anna Fowler, MD Rosanne Trejo, HIGH SCHOOL MATH TEACHER Morales Orozco MD Specimen: [id number] COMP Collected: 11/08/19-UNK Received: 11/08/19- 233 Source: UR Sp Descrip: UNKNOWN Procedure Result Verified M I C R O B I O L O G Y > URINE CULTURE Final 11/10/19 Organism 1 ESCHERICHIA COLI Quantity: > 100,000 CFU'S E COLI M.I.C. RX --------- --- AMPICILLIN <=2 S AMPICILLIN/SULBACTAM <=2 S CEFAZOLIN <=4 S CEFEPIME <=1 S ESBL - CEFTAZIDIME <=1 S CEFTRIAXONE <=1 S CIPROFLOXACIN <=0.25 S ERTAPENEM <=0.5 S GENTAMICIN <=1 S IMIPENEM <=0.25 S LEVOFLOXACIN <=0.12 S NITROFURANTOIN <=16 S TOBRAMYCIN <=1 S TRIMETHOPRIM/ SULFAMETHOXAZOLE <=20 S PIPERACILLIN/TAZOBACTAM <=4 S > URINE CULTURE Preliminary (Original rpt) 11/09/19-1008 Organism 1 GRAM NEGATIVE BACILLI Quantity: > 100,000 CFU'S Name Value Range Interpretation Code Description Data Karen rce(s) Supporting Document(s) URINE COLOR YELLOW [facility] URINE APPEARANCE CLOUDY [facility] URINE SPECIFIC GRAVITY 1.015 1.005-1.025 [facility] URINE GLUCOSE >=1000 MG/DL 0 - 99 A [facility] URINE BILIRUBIN NEGATIVE NEGATIVE [facility] URINE KETONES 15 MG/DL 0-14 A [facility] URINE BLOOD TRACE NEGATIVE A [facility] URINE pH 6.0 5.0 - 8.0 [facility] Ce nter URINE PROTEIN TRACE MG/DL 0-30 [facility] URINE UROBILINOGEN 0.2 EU/DL 0.2-1.0 [facility] URINE NITRITE NEGATIVE NEGATIVE [facility] URINE LEUKOCYTE ESTERASE NEGATIVE NEGATIVE [facility] a [facility] ID Date Data Source [id number] 11/08/2019 03:27:00 AM EDT [facility] Urine Specimen Collection Method Clean C atcrine Specimen Collection on Ice NOutput, Urine Amount 200Urine Specimen Collection Container labeled (time/d Urine Specimen Collection Method Clean C atchUrine Specimen Collection on Ice NOutput, Urine Amount 200Urine Specimen Collection Container labeled (time/[place] [address] Shweta Silva M.D., Candy Spreader Helper Laboratory Report Pg 1 PATIENT: OSKAR DUGAN [facility] #: [id number] : [birth year] M.R.N.: [id number] DOCTOR: Anna Fowler MD AGE/SEX: 89/F COPIES TO: LOC: 4E 419-W MD Layo Farris, MD Anna Fowler, MD Rosanne Trejo, [employer]IGH [employer] MATH TEACHER Morales Orozco MD Specimen: [id number] COMP Collected: 11/08/19-UNK Received: 11/08/19233 Source: UR Sp Descrip: UNKNOWN Procedure Result Verified M I C R O B I O L O G Y > URINE CULTURE Final 11/10/19-727 Organism 1 ESCHERICHIA COLI Quantity: > 100,000 CFU'S E COLI M.I.C. RX --------- --- AMPICILLIN <=2 S AMPICILLIN/SULBACTAM <=2 S CEFAZOLIN <=4 S CEFEPIME <=1 S ESBL - CEFTAZIDIME <=1 S CEFTRIAXONE <=1 S CIPROFLOXACIN <=0.25 S ERTAPENEM <=0.5 S GENTAMICIN <=1 S IMIPENEM <=0.25 S LEVOFLOXACIN <=0.12 S NITROFURANTOIN <=16 S TOBRAMYCIN <=1 S TRIMETHOPRIM/ SULFAMETHOXAZOLE <=20 S PIPERACILLIN/TAZOBACTAM <=4 S > URINE CULTURE Preliminary (Original rpt) 11/09/19-1008 Organism 1 GRAM NEGATIVE BACILLI Quantity: > 100,000 CFU'S Name Value Range Interpretation Code Description Data Karen rce(s) Supporting Document(s) URINE WBC 6-10 /HPF 0 - 5 A [facility] Ce nter URINE RBC NONE SEEN /HPF 0 - 2 [facility] URINE BACTERIA 4+ 0 - 1+ A [facility] URINE EPITHELIAL CELLS 0-2 /HPF 0 - [address] [facility] ID Date Data Source [id number] 11/10/2019 07:28:00 AM EDT [facility] Urine Specimen Collection Method Clean C atchUrine Specimen Collection on Ice NOutput, Urine Amount 200Urine Specimen Collection Container labeled (time/d Urine Specimen Collection Method Clean C atchUrine Specimen Collection on Ice NOutput, Urine Amount 200Urine Specimen Collection Container labeled (time/[place] [address] Shweta Silva M.D., Candy Spreader Helper Laboratory Report Pg 1 PATIENT: OSKAR DUGAN : [birth year] M.R.N.: [id number] DOCTOR: Anna Fowler MD AGE/SEX: 89/F COPIES TO: LOC: 4E 419-W MD Layo Farris, MD Anna Fowler, MD Rosanne Trejo, HIGH [employer] MATH TEACHER Morales Orozco MD Specimen: [id number] COMP Collected: 11/08/19- Received: 11/08/19233 Source: ROSENDO Knowles Descrip: UNKNOWN Procedure Result Verified M I C R O B I O L O G Y > URINE CULTURE Final 11/10/19 Organism 1 ESCHERICHIA COLI Quantity: > 100,000 CFU'S E COLI M.I.C. RX --------- --- AMPICILLIN <=2 S AMPICILLIN/SULBACTAM <=2 S CEFAZOLIN <=4 S CEFEPIME <=1 S ESBL - CEFTAZIDIME <=1 S CEFTRIAXONE <=1 S CIPROFLOXACIN <=0.25 S ERTAPENEM <=0.5 S GENTAMICIN <=1 S IMIPENEM <=0.25 S LEVOFLOXACIN <=0.12 S NITROFURANTOIN <=16 S TOBRAMYCIN <=1 S TRIMETHOPRIM/ SULFAMETHOXAZOLE <=20 S PIPERACILLIN/TAZOBACTAM <=4 S > URINE CULTURE Preliminary (Original rpt) 11/09/19-1007 Organism 1 GRAM NEGATIVE BACILLI Quantity: > 100,000 CFU'S Name Value Range Interpretation Code Description Data Karen rce(s) Supporting Document(s) ID Date Data Source CT PULMONARY ANGIOGRAM - [id number] 10/28/2019 01:54:45 PM EDT eC W1 ([facility]) Name Value Range Interpretation Code Description Data Karen rce(s) Supporting Document(s) CT PULMONARY ANGIOGRAM - [id number] eCW1 ([facility]) ID Date Data Source [id number] 10/28/2019 12:47:00 PM EDT [facility] CT Chest and CT Pulmonary Angiogram DATE OF EXAMINATION: 10/28/2019 11:[address] PULMONARY ANGIOGRAM Indication: Shortness of breath Comparison: None Contrast: 75 cc Omnipaque 300 Technique: Following administration of intravenous contrast, a CT scan wasperformed from the thoracic inlet through the upper abdomen. Simultaneously, adynamic study of the pulmonary arterial system was performed. One or more of the following dose reduction techniques were utilized ineffectively lowering the radiation dose for this examination: Automated ExposureControl, Adjustment of the mA and/or kV according to patient size, or Iterativereconstruction. Findings: Angiogram: There is no evidence of pulmonary embolic disease. No fillingdefects are visualized in the pulmonary arterial system. There areatherosclerotic changes of the aorta. There are coronary artery calcifications.There is no evidence of aortic dissection. CT Chest: There are small bilateral pleural effusions. The heart is large. Thereis atelectatic change at both lung bases. There is a small, approximately 6.5 mmright upper lobe nodule posterior medially abutting the pleural surface. Thereare no enlarged nodes. There are no adrenal masses. Impression: No evidence of pulmonary embolic disease. Small bilateral pleuraleffusions with adjacent atelectatic change. There is a small nodule in the rightupper lobe and follow-up is recommended. Electronically signed in PS360 by: Morales Christine M.D. 10/28/2019 12:41 EDT Name Value Range Interpretation Code Description Data Karen rce(s) Supporting Document(s) ID Date Data Source [id number] 10/28/2019 11:21:55 AM EDT eCW1 ([facility]) Name Value Range Interpretation Code Description Data Karen rce(s) Supporting Document(s) 0.93 DDIMER eCW1 ([facility]) ID Date Data Source CBC W/DIFF 10/28/2019 10:45:38 AM EDT eCW1 ([facility]) Name Value Range Interpretation Code Description Data Karen rce(s) Supporting Document(s) 11.5 WHITE BLOOD COUNT eCW1 ([facility]) 96.8 MEAN CELL VOLUME eCW1 ([facility]) 15.0 HEMOGLOBIN eCW1 ([facility]) 4.98 RED BLOOD COUNT eCW1 ([facility]) 48.2 HEMATOCRIT eCW1 ([facility]) 16.9 RED CELL DISTRIBUTION WID TH eCW1 ([facility]) 31.1 MEAN CORPUSCULAR HGB CONC eCW1 ([facility]) 329 PLATELET COUNT eCW1 ([facility]) 30.1 MEAN CORPUSCULAR HEMOGLOB IN eCW1 ([facility]) 6.9 LYMPH % eCW1 ([facility]) 8.7 MEAN PLATELET VOLUME eCW1 ([facility]) 86.3 GRAN % eCW1 ([facility]) 0.3 BASO % eCW1 ([facility]) 5.0 MONO % eCW1 ([facility]) 1.0 EOS % eCW1 ([facility]) 9.9 GRAN # eCW1 ([facility]) 0.8 LYMPH # eCW1 ([facility]) 0.1 EOS # eCW1 ([facility]) 0.0 BASO # eCW1 ([facility]) 0.6 MONO # eCW1 ([facility]) ID Date Data Source [id number] 10/28/2019 09:14:00 AM EDT [facility] CHEST, FRONTAL AND LATERAL DATE OF EXAMI NATION: 10/28/2019 8:51 EDT CHEST 2 VIEWS INDICATION: Shortness of breath COMPARISON: 09/20/2017 TECHNIQUE: Frontal and lateral views of the chest were obtained. FINDINGS: There are multiple surgical clips overlying mediastinum and left chestwall. The heart is large and aorta atherosclerotic and tortuous. There aredegenerative changes throughout the thoracic spine. There is diffuseinterstitial prominence similar to the previous study no evidence of acuteoverlying process. 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 Noevidence of acute overlying process Electronically signed in PS360 by: Morales Christine M.D. 10/28/2019 9:09 EDT Name Value Range Interpretation Code Description Data Karen rce(s) Supporting Document(s) ID Date Data Source [id number] 10/28/2019 11:37:00 AM EDT [facility] [email or web address] o n [facility] Name Value Range Interpretation Code Description Data [facility] rce(s) Supporting Document(s) B-TYPE NATRIURETIC PEPTIDE 2878 pg/ml 0-450 *H [facility] ID Date Data Source [id number] 10/28/2019 10:04:00 AM EDT [facility] Results called to [email or web address] o n 10[facility]28/[facility] Name Value Range Interpretation Code Description Data [facility] rce(s) Supporting Document(s) GLUCOSE 159 mg/dL 74-106 H [facility] BLOOD UREA NITROGEN 24 mg/dL 7-18 H [facility] ital CREATININE 1.0 mg/dL 0.6-1.0 [facility] SODIUM 143 mmol/L 136-145 [facility] POTASSIUM 3.7 mmol/L 3.5-5.1 [facility] CHLORIDE 99 mmol/L 98-107 [facility] CO2 35 mmol/L 21-32 H [facility] CALCIUM 9.5 mg/dL 8.5-10.1 [facility] ANION GAP 9.0 mmol/L 5-12 [facility] GLOMERULAR FILTRATION RATE 52 mL/min [facility] GFR IS CALCULATED IN mL/min/1.73m2 VALENCIA L FUNCTION: >90MILDLY DECREASED: 60-89MILDY TO MODERATELY DECREASED: 45-59 MODERATELY TO SEVERELY DECREASED: 30-44SEVERELY DECREASED: 15-29RENAL FAILURE: <15 AST 18 U/L 15-37 [facility] ALT 20 U/L 12-78 [facility] ALKALINE PHOSPHATASE 76 U/L 46-116 [facility] pital TOTAL BILIRUBIN 1.4 mg/dL 0.2-1.0 H [facility] TOTAL PROTEIN 7.0 g/dl 6.4-8.2 [facility] ALBUMIN 3.6 gm/dL 3.4-5.0 [facility] ID Date Data Source [id number] 10/28/2019 10:09:00 AM EDT [facility] Name Value Range Interpretation Code Description Data Karen rce(s) Supporting Document(s) DDIMER 0.93 mg/LFEU 0.19-0.8 H [facility] ID Date Data Source [id number] 10/28/2019 09:34:00 AM EDT [facility] l Name Value Range Interpretation Code Description Data Karen rce(s) Supporting Document(s) WHITE BLOOD COUNT 11.5 K/mm3 4.0-10.0 [facility] RED BLOOD COUNT 4.98 M/mm3 4.00-5.50 [facility] HEMOGLOBIN 15.0 gm/dL 12.0-16.0 [facility] HEMATOCRIT 48.2 % 36.0-48.8 [facility] MEAN CELL VOLUME 96.8 fl 80-96 H [facility] MEAN CORPUSCULAR HEMOGLOBIN 30.1 pg 27.0-31.0 [facility] MEAN CORPUSCULAR HGB CONC 31.1 g/dl 32.0-36.0 L [facility] RED CELL DISTRIBUTION WIDTH 16.9 % 10.0-14.5 H [facility] PLATELET COUNT 329 K/mm3 172-450 [facility] MEAN PLATELET VOLUME 8.7 fl 9.0-13.0 L [facility] pital GRAN % 86.3 % 50-80.0 H [facility] IG% 0.5 % 0.0-0.2 H [facility] LYMPH % 6.9 % 25.0-50.0 L [facility] MONO % 5.0 % 2.0-10.0 [facility] EOS % 1.0 % 0-5.0 [facility] BASO % 0.3 % 0.0-2.0 [facility] GRAN # 9.9 K/mm3 2.0-8.00 H [facility] IG# 0.1 K/mm3 0.0-0.2 [facility] LYMPH # 0.8 K/mm3 1.0-5.0 L [facility] MONO # 0.6 K/mm3 0.10-1.20 [facility] EOS # 0.1 K/mm3 0.0-0.5 [facility] BASO # 0.0 K/mm3 0.0-0.2 [facility] ID Date Data Source [id number] 10/14/2019 06:48:00 PM EDT [facility] NAME: OSKAR DUGAN [birth year] 88 MRUN: [id number] LOC: 4E ACCT: [id number] SRV: MED O.V.#: RPT#: [id number] XR CHEST 1VIEW-(PORTABLE) [id number] Date/Time:10/14/19 180 Dx: Shortness of Breath Order Phy: Yandel Keyes MD CHEST ONE VIEW PORTABLE HISTORY: SHORTNESS OF BREATH. FINDINGS: The lungs are well expanded with mild chronic interstitial changes and mild pulmonary vascular congestion. There is no focal infiltrate. The cardiac silhouette is mildly enlarged. No acute osseous abnormality. There is evidence of prior left chest surgery. IMPRESSION: MILD PULMONARY VASCULAR CONGESTION AND CARDIOMEGALY. DICTATED BY: Rios Salgado MD 09/16 1848 Electronically Signed By: Rios Salgado MD 10/19/19 1243 Electronically Co-Signed By: Transcribed By: TENA 0 1121 PACS IMAGE LINK ([facility] USE ONLY) [email or web address] Name Value Range Interpretation Code Description Data Karen rce(s) Supporting Document(s) ID Date Data Source [id number] 10/15/2019 12:50:00 PM EDT [facility] NAME: OSKAR DUGAN 1930 88 MRUN: [id number] LOC: ACCT: [id number] SRV: MED RPT#: [id number] ECHOCARDIOGRAM Order Phy: Anna Fowler MD Date/Time:10/14/19 Dx: new a-fib EF: 50-55% HISTORY: Cough, shortness of breath, fever, weakness. 2D AND M MODES: LVIDd: 4.4 cm. LVIDs; 3.3 cm. LA: 4.4 cm. 1. By visual inspection there is severe right sided chamber enlargement. The LA is enlarged as well. The LV appears to be normal in size. 2. There are fibrocalcific changes of the aortic and mitral valve leaflets. The leaflet excursion of the aortic valve appears to be mildly reduced. The valves are otherwise grossly normal for the patient's age. 3. LV systolic function is generally preserved. Ejection fraction estimated in the range of 50- 55%. 4. RV is globally enlarged and hypertrophied with normal systolic function. 5. No pericardial effusion is visible. DOPPLER REPORT WITH COLOR FLOW AND SPECTRAL ANALYSIS: Reveals mild aortic stenosis by gradient measurement with a peak gradient of 21 and mean of 13 mmHg.There is mild mitral and tricuspid insufficiency. RV systolic pressure estimated in the range of 43mmHg. CONCLUSION: Cardiac chamber enlargement noted. Low normal systolic function. Mild aortic stenosis by gradient measurement. DICTATED BY: Singh Duarte MD 10/15/19 1250 Electronically Signed By: Jitendra Alejo MD 11/01/19 0811 Transcribed By: NIEVES. 0 1320 Name Value Range Interpretation Code Description Data Karen rce(s) Supporting Document(s) ID Date Data Source [id number] 10/15/2019 05:24:00 AM EDT [facility] Name Value Range Interpretation Code Description Data Karen rce(s) Supporting Document(s) WBC 7.8 k/UL 4.3-11.0 [facility] nter RBC 4.19 M/UL 4.20-5.40 L [facility] nter HEMOGLOBIN 12.8 G/DL 12.0-16.0 [facility] C enter HEMATOCRIT 40.0 % 38.0-47.0 [facility] enter MCV 95.5 FL 75.0-105.0 [facility] C enter MCH 30.5 PG 26.0-33.0 [facility] nter MCHC 32.0 G/DL 31.0-36.0 [facility] nter RED CELL DISTRIBUTION WIDTH 15.8 % 11.6-14.6 H On [facility] Reference range changed effective 09/15 PLATELET COUNT 193 K/UL 150-400 [facility] MEAN PLATELET VOLUME 9.0 FL 8.7-12.3 [facility] NEUTROPHILS AUTOMATED 85.8 % 47.0-76.0 H [facility] LYMPHOCYTE AUTOMATED 4.2 % 12.0-44.0 L [facility] MONOCYTES AUTOMATED 7.7 % 2.0-12.0 [facility] EOSINOPHILS AUTOMATED 1.4 % 0.0-6.0 [facility] BASOPHILS AUTOMATED 0.5 % 0.0-3.0 [facility] ABS.NEUTROPHILS AUTOMATED 6.73 K/UL 1.50-7.50 [facility] ABS. LYMPHOCYTES AUTOMATED 0.33 K/UL 0.80-2.80 L [facility] ABS.MONOCYTES AUTOMATED 0.60 K/UL 0.20-1.[address] [facility] ABS. EOSINOPHILS AUTOMATED 0.11 K/UL 0.20-0.40 L [facility] ABS. BASOPHILS AUTOMATED 0.04 K/UL 0.00-0.20 [facility] IMMATURE GRANULOCYTE 0.4 % 0.0-0.6 [facility] ABS IMMATURE GRANULOCYTE 0.03 K/UL 0.00-0.04 [facility] NUCLEATED RBC 0.0 % 0.0-0.0 [facility] ID Date Data Source [id number] 10/15/2019 06:16:00 AM EDT [facility] Name Value Range Interpretation Code Description Data Karen rce(s) Supporting Document(s) SODIUM 140 MMOL/L 136-145 [facility] enter POTASSIUM 3.9 MMOL/L 3.4-5.0 [facility] enter CHLORIDE 101 MMOL/L 98-107 [facility] enter CO2 29 MMOL/L 22-29 [facility] nter ANION GAP 14 MMOL/L 10-20 [facility] nter GLUCOSE 176 MG/DL 70-99 H [facility] nter CREATININE 0.7 MG/DL 0.5-0.9 [facility] enter BUN 26 MG/DL 6-20 H [facility] nter CALCIUM 9.5 MG/DL 8.8-10.2 [facility] nter ID Date Data Source [id number] 10/15/2019 06:16:00 AM EDT [facility] Name Value Range Interpretation Code Description Data Karen rce(s) Supporting Document(s) TROPONIN T < 0.01 NG/ML 0.00-0.10 [facility] ID Date Data Source [id number] 10/14/2019 09:05:00 PM EDT [facility] Name Value Range Interpretation Code Description Data Karen rce(s) Supporting Document(s) 2019-nCoV RNA panel by probe and target amplification method [facility] This lab was ordered by [facility] and rep orted by [place]. ID Date Data Source [id number] 10/14/2019 11:22:00 PM EDT [facility] Name Value Range Interpretation Code Description Data Karen rce(s) Supporting Document(s) RAPID COVID-19 VIRAL RNA NOT DETECTED [facility] Performed by rapid molecular testing [facility] lizing an isothermalnucleic acid amplification technology for the qualitativedetection of SARS-CoV-2 RNA, which is generally detectablein respiratory samples during the acute phase of infection.This test is intended to be performed on respiratoryspecimens collected from individuals who meet the Centersfor Disease Control and Prevention (CDC) clinical and/orepidemiological criteria for COVID-19 testing.A DETECTED results are indicative of the presence [id number] RNA; clinical correlation with patient historyand other diagnostic information is necessary to determinepatient infection status. Positive results do not rule outbacterial infection or co-infection with other viruses.Testing facilities within the [place] are required toreport all positive results to the appropriate public healthauthorities.A NOT DETECTED result does not preclude [id number] and should not be used as the sole basis forpatient management decisions.This test has been authorized by the FDA under the EmergencyUse Authorization (EAU)Reference Range=NOT DETECTED ID Date Data Source [id number] 10/14/2019 08:14:00 PM EDT [facility] Hx of Present Ill.-Dyspnea Chief Co mplaint: Dyspnea/SOB Reason for Visit: COUGH,SOB,FEVER,WEAKNESS Time Seen by Provider: 10/14/19 17:59 Initial Comments: 10/15/19 13:57 88-year-old female presents to the ED with shortness of breath started today patient is also complaining of cough started today patient denies any sputum production and no fevers no chills no chest pain no nausea vomiting diarrhea. Allergies: No Known Allergies Allergy (Verified 10/14/19 17:02) Home Medications: AmLODIPine* [Norvasc*] 10 mg PO HS 01/15/12 [Confirmed 10/15/19] Atenolol* [Tenormin*] 100 mg PO DAILY 01/15/12 [Confirmed 10/15/19] Enalapril* [Vasotec*] 20 mg PO BID 01/15/12 [Confirmed 10/15/19] Hydrochlorothiazide* [HCTZ*] 25 mg PO DAILY 01/15/12 [Confirmed 10/15/19] Ipratropium/Albuterol Inhaler* [Combivent Inhaler*] 2 puff INH PRN PRN 01/15/12 [Confirmed 10/15/19] Pravastatin Sodium [Pravachol] 40 mg PO DAILY 01/15/12 [Confirmed 10/15/19] Past History-Dyspnea Nursing Notes Reviewed: Yes Smoking History: Smoking Status Former smoker Tobacco Type and History Cigarettes Packs Per Day 0.5 Alcohol and Substance Use: Do you drink alcohol? Denies Do you currently use any No social/recreational drugs? Review of Systems-Respiratory Review of Systems Unobtainable Due To: Reports: no limitations Constitutional: Reports: no symptoms reported EENTM: Reports: no symptoms reported Respiratory: Reports: see HPI Cardiac: Reports: no symptoms reported Gastrointestinal/Abdominal: Reports: no symptoms reported Genitourinary: Reports: no symptoms reported Musculoskeletal: Reports: no symptoms reported Skin: Reports: no symptoms reported Neurological: Reports: no symptoms reported Psychiatric: Reports: no symptoms reported Endocrine: Reports: no symptoms reported Hematologic/Lymphatic: Reports: no symptoms reported Immunological/Allergic: Reports: no symptoms reported All Other Systems: Reviewed and Negative Physical Exam-Dyspnea Initial Comment: 10/15/19 13:58 irregularly irregular rhythm sinus tachycardia General Appearance: WD/WN, no apparent distress Eyes, Ears, Nose, Throat Exam: PERRL/EOMI, normal ENT inspection Neck: non-tender, full range of motion, supple, normal inspection Respiratory: chest non-tender, lung sounds clear, normal breath sounds, no accessory muscle use, normal respiratory effort Cardiovascular/Chest: normal peripheral pulses, no edema, no gallop, no JVD, no murmur GI/Abdominal: soft, no distention, no vol guarding, no invol guarding, non tender Extremity: normal range of motion, non-tender, normal inspection, no pedal edema, no calf tenderness Neurologic: alert, director center II-XII nml as tested, no motor/sensory deficits, oriented x 3 Skin Exam: normal color Lymphatic: no lymphadenopathy Medical Decision Making Differential Diagnosis-Comments: 10/15/19 13:58 patient's blood work was physiologic patient's troponin was negative. EKG shows sinus tachycardia with atrial fibrillation. Patient has no history of atrial fibrillation so this is new onset A. fib. Chest x-ray shows cardiomegaly with mild pulmonary vascular congestion. Patient was given Cardizem 10 mg IV in the ED patient's heart rate decreased to 80s-90s continued to be in A. fib. Given new onset A. fib patient needs anticoagulation for her A. fib. Patient was given Lovenox subcu for anticoagulation discussed with hospitalist Dr. Fowler. 10/15/19 13:59 EKG shows atrial fibrillation at the rate of 1 16 bpm. QTc 430 ms, QRS 70 ms. IV Fluids Ordered for Hydration?: No Orders, Meds: Acetaminophen (Tylenol*) 650 mg PO Q6H PRN PRN Reason: PAIN (MILD) SCALE 1-3 / FEVER Albuterol Sulfate (Proventil 0.083% Neb Solution*) 2.5 mg INH Q2H PRN PRN Reason: SHORTNESS OF BREATH/WHEEZING Carvedilol (Coreg*) 6.25 mg PO BIDWM [facility] Last Admin: 10/15/19 07:57 Dose: 6.25 mg Documented by: Dextrose (Dextrose 50% Adult Syringe*) 25 gm IVP DIRECTED PRN PRN Reason: BG < 60 IF UNABLE TO TAKE PO Diltiazem HCl (Cardizem*) 30 mg PO Q6H [facility] Last Admin: 10/15/19 10:23 Dose: 30 mg Documented by: Enoxaparin Sodium (Lovenox*) 60 mg SQ Q12H [facility] Last Admin: 10/15/19 07:57 Dose: 60 mg Documented by: Furosemide (Lasix*) 40 mg IVP BID DIURETIC [facility] Last Admin: 10/15/19 08:37 Dose: 40 mg Documented by: Glucagon (Glucagon*) 1 mg IM DIRECTED PRN PRN Reason: BG < 60 (NO PO/IV ACCESS) Glucose (Glutose-15 Oral Gel*) 15 gm PO DIRECTED PRN PRN Reason: BG < 60 IF ABLE TO TAKE PO Insulin Aspart (Novolog*) 0 unit SQ [facility]; Protocol Last Admin: 10/15/19 13:23 Dose: 5 units Documented by: Lisinopril (Zestril*) 10 mg PO DAILY [facility] Last Admin: 10/15/19 08:36 Dose: 10 mg Documented by: Pantoprazole Sodium (Protonix*) 40 mg PO DAILY@0500 [facility] Last Admin: 10/15/19 05:56 Dose: 40 mg Documented by: Discontinued Medications Diltiazem HCl (Cardizem*) 10 mg IVP ONCE ONE Stop: 10/14/19 18:03 Last Admin: 10/14/19 18:24 Dose: 10 mg Documented by: Enoxaparin Sodium (Lovenox*) 58 mg SQ ONCE ONE Stop: 10/14/19 20:17 Last Admin: 10/14/19 20:46 Dose: 58 mg Documented by: Furosemide (Lasix*) 40 mg IVP BID DIURETIC MIHIR 10/14/19 18:01 [employer] CONTINUOUS Saline Lock ONCE XR CHEST 1VIEW-(PORTABLE) Stat EKG Documentation ONCE Oxygen* PRN* 10/14/19 19:10 CBC Stat COMPREHENSIVE PROFILE Stat PRO-BNP Stat PT INR Stat PTT Stat TROPONIN T Stat 10/14/19 21:05 RAPID COVID 19 VIRAL RNA Stat Patient Problems A-fib (Acute) CHF (congestive heart failure) (Acute) Essential hypertension (Acute) New onset atrial fibrillation (Acute) Temp Pulse Resp BP Pulse Ox 10/14/19 21:42 96 19 123/74 94 L 10/14/19 21:40 97 20 92 L 10/14/19 21:37 100 20 126/64 92 L 10/14/19 21:32 101 H 19 125/72 93 L 10/14/19 21:30 103 H 20 93 L 10/14/19 21:27 100 19 129/77 94 L 10/14/19 21:22 108 H 19 134/75 94 L 10/14/19 21:20 104 H 20 94 L 10/14/19 21:17 103 H 20 139/74 94 L 10/14/19 21:12 109 H 20 141/77 H 93 L 10/14/19 21:10 105 H 23 H 88 L 10/14/19 21:07 106 H 20 140/76 H 95 10/14/19 21:02 107 H 19 135/76 95 10/14/19 21:00 113 H 17 93 L 10/14/19 20:58 118 H 20 150/93 H 94 L 10/14/19 20:52 112 H 21 H 156/116 H 92 L 10/14/19 20:50 109 H 20 90 L 10/14/19 20:48 113 H 21 H 156/116 H 95 10/14/19 20:43 99 21 H 137/82 90 L 10/14/19 20:40 103 H 19 94 L 10/14/19 20:38 99 21 H 133/59 L 95 10/14/19 20:33 105 H 23 H 138/71 93 L 10/14/19 20:30 105 H 21 H 93 L 10/14/19 20:28 107 H 20 131/67 97 10/14/19 17:50 102 H 16 93 L 10/14/19 17:47 112 H 19 125/73 92 L 10/14/19 17:40 94 18 93 L 10/14/19 17:32 104 H 19 124/67 92 L 10/14/19 17:30 106 H 18 87 L 10/14/19 17:29 100 18 81 L 10/14/19 16:59 36.9 C 112 H 20 146/83 H 93 L Hem: 10/14/19 Range/Units 19:10 WBC 9.8 (4.3-11.0) k/UL RBC 4.57 (4.20- 5.40) M/UL Hgb 13.6 (12.0-16.0) G/DL Hct 44.1 (38.0-47.0) % MCV 96.5 (75.0-105.0) FL MCH 29.8 (26.0-33.0) PG MCHC 30.8 L (31.0-36.0) G/DL RDW 15.7 H (11.6-14.6) % Plt Count 215 (150-400) K/UL MPV 9.2 (8.7-12.3) FL Immature Gran % (Auto) 0.5 (0.0-0.6) % Neut % (Auto) 83.5 H (47.0-76.0) % Lymph % (Auto) 6.7 L (12.0-44.0) % [place] % (Auto) 7.3 (2.0-12.0) % Eos % (Auto) 1.4 (0.0-6.0) % Baso % (Auto) 0.6 (0.0-3.0) % Neut # (Auto) 8.15 H (1.50-7.50) K/UL Lymph # (Auto) 0.65 L (0.80-2.80) K/UL [place] # (Auto) 0.71 (0.20-1.00) K/UL Eos # (Auto) 0.14 L (0.20-0.40) K/UL Baso # (Auto) 0.06 (0.00- 0.20) K/UL Abs Immat Gran (auto) 0.05 H (0.00-0.04) K/UL Nucleated RBCs 0.0 (0.0-0.0) % Chem: 10/14/19 10/14/19 10/14/19 Range/Units 19:10 19:10 19:10 Sodium 142 (136-145) MMOL/L Potassium 4.3 (3.4-5.0) MMOL/L Chloride 102 (98-107) MMOL/L Carbon Dioxide 30 H (22-29) MMOL/L Anion Gap 14 (10-20) MMOL/L BUN 28 H (6-20) MG/DL Creatinine 0.8 (0.5-0.9) MG/DL Estimated GFR (MDRD) Not Reportable Glucose 143 H (70-99) MG/DL Calcium 10.3 H (8.8-10.2) MG/DL Total Bilirubin 1.0 (0.0-1.2) MG/DL AST 12 (0-32) U/L ALT 11 (0-33) U/L Alkaline Phosphatase 80 (35-104) U/L Troponin T < 0.01 (0.00-0.10) NG/ML Cam-O-Jgrbxfepzka Pept 2806 H (0-450) PG/ML Total Protein 6.7 (6.4-8.3) G/DL Albumin 4.0 (3.5-5.2) G/DL TSH 6.920 H (0.270-4.200) uIU/ML Free T4 1.19 (0.9-1.7) NG/DL Coa10/14/19 Range/Units 19:10 PT 10.9 (9.7-11.9) SEC INR 1.1 APTT 24.5 (23.6-32. 0) SEC Serology: 10/14/19 Range/Units 21:05 COVID- 19 (JEIMY) Not detected () Heart Score Age: 65 or older [2] Departure Time of Disposition: 20:15 Disposition: ADMITTED IP TO THIS HOSPITAL Clinical Impression: A-fib Qualifiers: Atrial fibrillation type: unspecified Qualified Code(s): I48.91 - Unspecified atrial fibrillation Condition: FAIR Critical Care Note Critical Care Time (min) excluding billable procedure time: 35 Name Value Range Interpretation Code Description Data Karen rce(s) Supporting Document(s) ID Date Data Source [id number] 10/15/2019 12:31:00 AM EDT [facility] Physician Instructions: add to er labs Physician Instructions: add to er labs Name Value Range Interpretation Code Description Data Karen rce(s) Supporting Document(s) FT4 1.19 NG/DL 0.9-1.7 [facility] C enter ID Date Data Source [id number] 10/15/2019 12:31:00 AM EDT [facility] Physician Instructions: add to er labs Physician Instructions: add to er labs Name Value Range Interpretation Code Description Data Karen rce(s) Supporting Document(s) TSH 6.920 uIU/ML 0.270-4.200 H [facility] ID Date Data Source [id number] 10/14/2019 11:56:00 PM EDT [facility] Physician Instructions: add to ER labs Name Value Range Interpretation Code Description Data Karen rce(s) Supporting Document(s) PRO-BNP 2806 PG/ML 0-450 H [facility] enter ID Date Data Source [id number] 10/14/2019 07:21:00 PM EDT [facility] Name Value Range Interpretation Code Description Data Karen rce(s) Supporting Document(s) WBC 9.8 k/UL 4.3-11.0 [facility] nter RBC 4.57 M/UL 4.20-5.40 [facility] nter HEMOGLOBIN 13.6 G/DL 12.0-16.0 [facility] C enter HEMATOCRIT 44.1 % 38.0-47.0 [facility] C enter MCV 96.5 FL 75.0-105.0 [facility] C enter MCH 29.8 PG 26.0-33.0 [facility] nter MCHC 30.8 G/DL 31.0-36.0 L [facility] nter RED CELL DISTRIBUTION WIDTH 15.7 % 11.6-14.6 H [facility] Reference range changed effective 09/15 PLATELET COUNT 215 K/UL 150-400 [facility] MEAN PLATELET VOLUME 9.2 FL 8.7-12.3 [facility] NEUTROPHILS AUTOMATED 83.5 % 47.0-76.0 H [facility] LYMPHOCYTE AUTOMATED 6.7 % 12.0-44.0 L [facility] MONOCYTES AUTOMATED 7.3 % 2.0-12.0 [facility] EOSINOPHILS AUTOMATED 1.4 % 0.0-6.0 [facility] BASOPHILS AUTOMATED 0.6 % 0.0-3.0 [facility] ABS.NEUTROPHILS AUTOMATED 8.15 K/UL 1.50-7.50 H [facility] ABS. LYMPHOCYTES AUTOMATED 0.65 K/UL 0.80-2.80 L [facility] ABS.MONOCYTES AUTOMATED 0.71 K/UL 0.20-1.[address] [facility] ABS. EOSINOPHILS AUTOMATED 0.14 K/UL 0.20-0.40 L [facility] ABS. BASOPHILS AUTOMATED 0.06 K/UL 0.00-0.20 [facility] IMMATURE GRANULOCYTE 0.5 % 0.0-0.6 [facility] ABS IMMATURE GRANULOCYTE 0.05 K/UL 0.00-0.04 H [facility] NUCLEATED RBC 0.0 % 0.0-0.0 [facility] e Center ID Date Data Source [id number] 10/14/2019 07:31:00 PM EDT [facility] Name Value Range Interpretation Code Description Data Karen rce(s) Supporting Document(s) PROTHROMBIN TIME 10.9 SEC 9.7-11.9 [facility] INR 1.1 [facility] nter *MONITOR PATIENTS BASED ON INR VALU E*INR RESULT TO BE INTERPRETED FOR PATIENTS ON ORAL ANTICOAGULANT THERAPY ONLY.Conventional Anticoagulation: INR 2.0 - 3.0Intensive Anticoagulation : INR 2.5 - 3.5 ID Date Data Source [id number] 10/14/2019 07:31:00 PM EDT [facility] Name Value Range Interpretation Code Description Data Karen rce(s) Supporting Document(s) PTT 24.5 SEC 23.6-32.0 [facility] nter ID Date Data Source [id number] 10/14/2019 08:00:00 PM EDT [facility] Name Value Range Interpretation Code Description Data Karen rce(s) Supporting Document(s) SODIUM 142 MMOL/L 136-145 [facility] enter POTASSIUM 4.3 MMOL/L 3.4-5.0 [facility] C enter CHLORIDE 102 MMOL/L 98-107 [facility] C enter CO2 30 MMOL/L 22-29 H [facility] Ce nter ANION GAP 14 MMOL/L 10-20 [facility] Ce nter GLUCOSE 143 MG/DL 70-99 H [place] [facility] Ce nter CREATININE 0.8 MG/DL 0.5-0.9 [facility] C enter BUN 28 MG/DL 6-20 H [facility] Ce nter CALCIUM 10.3 MG/DL 8.8-10.2 H [facility] C enter TOTAL PROTEIN 6.7 G/DL 6.4-8.3 [facility] e Center ALBUMIN 4.0 G/DL 3.5-5.2 [facility] Ce nter BILIRUBIN,TOTAL 1.0 MG/DL 0.0-1.2 [facility] are Center ALKALINE PHOSPHATASE 80 U/L 35-104 [facility] AST 12 U/L 0-32 [place] [facility] Ce nter ALT 11 U/L 0-33 [facility] Ce nter ID Date Data Source [id number] 10/14/2019 08:00:00 PM EDT [facility] Name Value Range Interpretation Code Description Data Karen rce(s) Supporting Document(s) TROPONIN T < 0.01 NG/ML 0.00-0.10 [facility] e Center ID Date Data Source [id number] 10/14/2019 05:01:00 PM EDT [facility] NAME: OSKAR DUGAN Maldonado 1930 87 MRUN: [id number] LOC: ICU ACCT: [id number] SRV: [facility]#: [id number] ELECTROCARDIOGRAM Order Phy: Yandel Keyes MD Date/Time:10/14/19 180 Dx: Shortness of Breath Exam Date:Oct 14 2019 17:01:06 Ventricular Rate:116 BPM Atrial Rate:138 BPM QRS Duration:70 ms Q-T Interval:310 ms QTC Calculation(Bazett):430 ms R [place]:98 degrees T [place]:268 degrees Diagnosis:Atrial fibrillation with ra pid ventricular response WITH PVCS Diagnosis:Rightward axis Diagnosis:Low voltage QRS Diagnosis:Cannot rule out Anteroseptal infarct (cited on or before 19-MAY-2018) Diagnosis:Abnormal ECG Diagnosis:When compared with ECG of 19-MAY-2018 00:07, Diagnosis:Questionable change in initial forces of Anterior leads Diagnosis:Nonspecific T wave abnormality now evident in Inferior leads Diagnosis:Nonspecific T wave abnormality, worse in Lateral leads Diagnosis:RIGHT AXIS SHIFT Diagnosis:Confirmed by Tanner Ibanez MD ([id number]) on 10/15/2019 6:13:49 AM Dictated By:Tanner Ibanez MD Electronically Signed By: Tanner Ibanez MD 10/15/19 0613 Name Value Range Interpretation Code Description Data Karen rce(s) Supporting Document(s) ID Date Data Source [id number] 09/25/2019 12:00:00 AM EDT [facility] Name Value Range Interpretation Code Description Data Karen rce(s) Supporting Document(s) SARS coronavirus 2 RNA [facility] This lab was ordered by [facility] and reported by [facility]. ID Date Data Source [id number] 09/07/2019 03:23:00 PM EDT [facility] ([facility] Name Value Range Interpretation Code Description Data Karen rce(s) Supporting Document(s) Hemoglobin A1c/Hemoglobin.total in Blood 8.6 % 4.8-5.7 Above high normal [facility] O[facility] ID Date Data Source [id number] 09/07/2019 03:23:00 PM EDT [facility] ([facility] Name Value Range Interpretation Code Description Data Karen rce(s) Supporting Document(s) Erythrocytes [#/volume] in Blood by Automated count 4.87 M/UL 4.20-5 .40 [facility] WBC 9.2 k/UL 4.3-11.0 [facility] ([facility] MCV 97.5 FL 75.0-105.0 [facility] ([facility] Hemoglobin [Mass/volume] in Blood 14.5 g/dL 12.0-16.0 [facility] ([facility] Hematocrit 47.5 % 38.0-47.0 Above high normal [facility] ([facility] MCH 29.8 pg 26.0-33.0 [facility] ([facility] Red Cell Distribution Width 15.1 % 0.0-16.0 [facility] ([facility] MCHC 30.5 g/dL 31.0-36.0 Below low normal [facility] ( [facility] Lymphocyte Automated 10.0 % 12.0-44.0 Below low normal [facility] ([facility] Neutrophils Automated 81.1 % 47.0-76.0 Above high normal [facility] ([facility] Platelets [#/volume] in Blood by Automated count 255 K/UL 150-400 [facility] ([facility] Mean Platelet Volume 9.6 FL 8.7-12.3 [facility] NT ([facility] Eosinophils Automated 1.2 % 0.0-6.0 MED ENT ([facility] Monocytes Automated 6.6 % 2.0-12.0 [facility] T ([facility] Basophils/100 leukocytes in Blood by Automated count 0.8 % 0.0-3 .0 [facility] ([facility] Lymphocytes [#/volume] in Blood by Automated count 0.92 K/UL 0.80-2. 80 [facility] ([facility] Monocytes [#/volume] in Blood by Automated count 0.61 K/UL 0.20-1.00 [facility] ([facility] Neutrophils [#/volume] in Blood by Automated count 7.44 K/UL 1.50-7. 50 [facility] ([facility] Eosinophils [#/volume] in Blood by Automated count 0.11 K/UL 0.20-0.40 Below low normal [facility] ([facility] ) Immature Granulocyte 0.3 % 0.0-0.6 [facility] NT ([facility] Basophils [#/volume] in Blood by Automated count 0.07 K/UL 0.00-0.20 [facility] ([facility] Abs Immature Granulocyte 0.03 K/UL 0.00-0.04 [facility] ([facility] Nucleated RBC 0.0 % 0.0-0.0 [facility] ([facility] ID Date Data Source [id number] 09/07/2019 03:23:00 PM EDT [facility] ([facility] Name Value Range Interpretation Code Description Data Karen rce(s) Supporting Document(s) Sodium [Moles/volume] in Serum or Plasma 139 mmol/L 136-145 [facility] Anion Gap 12 mmol/L 10-20 [facility] ([facility] Carbon dioxide, total [Moles/volume] in Serum or Plasma 31 mmol/ L 22-29 Above high normal [facility] ([facility] ) Chloride [Moles/volume] in Serum or Plasma 100 mmol/L 98-107 [facility] Potassium [Moles/volume] in Serum or Plasma 3.9 mmol/L 3.4-5.0 [facility] Creatinine 0.8 mg/dL 0.5-0.9 [facility] ([facility] Glucose [Mass/volume] in Serum or Plasma 158 mg/dL 70-99 Above high normal [facility] ([facility] Urea nitrogen [Mass/volume] in Serum or Plasma 18 mg/dL 6-20 [facility] ([facility] Albumin [Mass/volume] in Serum or Plasma 4.0 g/dL 3.5-5.2 [facility] ([facility] Calcium [Mass/volume] in Serum or Plasma 9.6 mg/dL 8.8-10.2 [facility] ([facility] Protein [Mass/volume] in Serum or Plasma 6.6 g/dL 6.4-8.3 [facility] ([facility] Bilirubin.total [Mass/volume] in Serum or Plasma 0.6 mg/dL 0.0-1.2 [facility] ([facility] Aspartate aminotransferase [Enzymatic activity/volume] in Serum or Plasma 16 U/L 0-32 [facility] ([facility] Alkaline phosphatase [Enzymatic activity/volume] in Serum or Plasma 78 U/L 35-104 [facility] ([facility] Alanine aminotransferase [Enzymatic activity/volume] in Seru m or Plasma 17 U/L 0-33 [facility] ([facility] ID Date Data Source [id number] 09/07/2019 05:56:00 PM EDT [facility] Name Value Range Interpretation Code Description Data Karen rce(s) Supporting Document(s) WBC 9.2 k/UL 4.3-11.0 [facility] nter RBC 4.87 M/UL 4.20-5.40 [facility] nter HEMOGLOBIN 14.5 G/DL 12.0-16.0 [facility] C enter HEMATOCRIT 47.5 % 38.0-47.0 H [facility] C enter MCV 97.5 FL 75.0-105.0 [facility] C enter MCH 29.8 PG 26.0-33.0 [facility] nter MCHC 30.5 G/DL 31.0-36.0 L [facility] nter RED CELL DISTRIBUTION WIDTH 15.1 % 0.0-16.0 [facility] PLATELET COUNT 255 K/UL 150-400 [facility] MEAN PLATELET VOLUME 9.6 FL 8.7-12.3 [facility] [facility] NEUTROPHILS AUTOMATED 81.1 % 47.0-76.0 H [facility] LYMPHOCYTE AUTOMATED 10.0 % 12.0-44.0 L [facility] MONOCYTES AUTOMATED 6.6 % 2.0-12.0 [facility] EOSINOPHILS AUTOMATED 1.2 % 0.0-6.0 [facility] BASOPHILS AUTOMATED 0.8 % 0.0-3.0 [facility] ABS.NEUTROPHILS AUTOMATED 7.44 K/UL 1.50-7.50 [facility] ABS. LYMPHOCYTES AUTOMATED 0.92 K/UL 0.80-2.80 [facility] ABS.MONOCYTES AUTOMATED 0.61 K/UL 0.20-1.[address] [facility] ABS. EOSINOPHILS AUTOMATED 0.11 K/UL 0.20-0.40 L [facility] ABS. BASOPHILS AUTOMATED 0.07 K/UL 0.00-0.20 [facility] IMMATURE GRANULOCYTE 0.3 % 0.0-0.6 [facility] ABS IMMATURE GRANULOCYTE 0.03 K/UL 0.00-0.04 [facility] NUCLEATED RBC 0.0 % 0.0-0.0 [facility] ID Date Data Source [id number] 09/07/2019 06:12:00 PM EDT [facility] Name Value Range Interpretation Code Description Data Karen rce(s) Supporting Document(s) SODIUM 139 MMOL/L 136-145 [facility] C enter POTASSIUM 3.9 MMOL/L 3.4-5.0 [facility] C enter CHLORIDE 100 MMOL/L 98-107 [facility] enter CO2 31 MMOL/L 22-29 H [facility] nter ANION GAP 12 MMOL/L 10-20 [facility] nter GLUCOSE 158 MG/DL 70-99 H [facility] nter CREATININE 0.8 MG/DL 0.5-0.9 [facility] enter BUN 18 MG/DL 6-20 [facility] nter CALCIUM 9.6 MG/DL 8.8-10.2 [facility] nter TOTAL PROTEIN 6.6 G/DL 6.4-8.3 [facility] ALBUMIN 4.0 G/DL 3.5-5.2 [facility] nter BILIRUBIN,TOTAL 0.6 MG/DL 0.0-1.2 [facility] Center ALKALINE PHOSPHATASE 78 U/L 35-104 [facility] AST 16 U/L 0-32 [facility] nter ALT 17 U/L 0-33 [facility] nter ID Date Data Source [id number] 09/07/2019 06:12:00 PM EDT [facility] Name Value Range Interpretation Code Description Data Karen rce(s) Supporting Document(s) HEMOGLOBIN A1C 8.6 % 4.8-5.7 H [facility] Center ID Date Data Source [id number] 08/06/2019 10:58:00 AM EDT [facility] Name Value Range Interpretation Code Description Data Karen rce(s) Supporting Document(s) FERRITIN 72 ng/mL 8-252 [facility] ID Date Data Source [id number] 08/06/2019 10:58:00 AM EDT [facility] Name Value Range Interpretation Code Description Data Karen rce(s) Supporting Document(s) IRON 73 ug/dL 50-170 [facility] TIBC 335 ug/dL 250-450 [facility] % SATURATION 22 % 20-50 [facility] ID Date Data Source [id number] 08/06/2019 10:58:00 AM EDT [facility] l Name Value Range Interpretation Code Description Data Karen rce(s) Supporting Document(s) GLUCOSE 180 mg/dL 74-106 H [facility] BLOOD UREA NITROGEN 29 mg/dL 7-18 H [facility] ital CREATININE 1.0 mg/dL 0.6-1.0 [facility] SODIUM 140 mmol/L 136-145 [facility] POTASSIUM 4.0 mmol/L 3.5-5.1 [facility] CHLORIDE 97 mmol/L 98-107 L [facility] CO2 38 mmol/L 21-32 H [facility] CALCIUM 9.9 mg/dL 8.5-10.1 [facility] ANION GAP 5.0 mmol/L 5-12 [facility] GLOMERULAR FILTRATION RATE 52 mL/min [facility] GFR IS CALCULATED IN mL/min/1.73m2 VALENCIA L FUNCTION: >90MILDLY DECREASED: 60-89MILDY TO MODERATELY DECREASED: 45-59 MODERATELY TO SEVERELY DECREASED: 30-44SEVERELY DECREASED: 15-29RENAL FAILURE: <15 AST 20 U/L 15-37 [facility] ALT 30 U/L 12-78 [facility] ALKALINE PHOSPHATASE 74 U/L 46-116 [facility] pital TOTAL BILIRUBIN 1.1 mg/dL 0.2-1.0 H [facility] TOTAL PROTEIN 7.3 g/dl 6.4-8.2 [facility] ALBUMIN 4.1 gm/dL 3.4-5.0 [facility] ID Date Data Source [id number] 08/06/2019 10:22:00 AM EDT [facility] l Name Value Range Interpretation Code Description Data Karen rce(s) Supporting Document(s) HGBA1C 8.4 % 3.8-5.6 H [facility] Diabetic > or = to 6.5%Prediabetes 5.7-6 .4%Normal <5.7 ID Date Data Source [id number] 08/06/2019 10:22:00 AM EDT [facility] l Name Value Range Interpretation Code Description Data Karen rce(s) Supporting Document(s) ESTIMATED AVERAGE GLUCOSE 194.4 mg/dL [facility] ID Date Data Source [id number] 08/06/2019 10:19:00 AM EDT [facility] l Name Value Range Interpretation Code Description Data Karen rce(s) Supporting Document(s) URINE MICROALBUMIN 13.2 mg/L 1.3-20.0 [facility] URINE CREATININE 27.2 mg/dL [facility] MICROALBUMIN/CREATININE RATIO 48 ug/mg [facility] ID Date Data Source [id number] 08/06/2019 10:08:00 AM T [facility] l Name Value Range Interpretation Code Description Data Karen rce(s) Supporting Document(s) WHITE BLOOD COUNT 10.3 K/mm3 4.0-10.0 H [facility] RED BLOOD COUNT 5.20 M/mm3 4.00-5.50 [facility] HEMOGLOBIN 15.4 gm/dL 12.0-16.0 [facility] HEMATOCRIT 48.5 % 36.0-48.8 [facility] MEAN CELL VOLUME 93.3 fl 80-96 [facility] MEAN CORPUSCULAR HEMOGLOBIN 29.6 pg 27.0-31.0 [facility] MEAN CORPUSCULAR HGB CONC 31.8 g/dl 32.0-36.0 L [facility] RED CELL DISTRIBUTION WIDTH 14.2 % 10.0-14.5 [facility] PLATELET COUNT 263 K/mm3 172-450 [facility] Procedure Social History Code Duration Value Status Description Data Source(s ) Smoking 04/18/2020 12:00:00 AM EST Never Smoker completed Never S moker eCW1 ([facility]) Smoking 04/18/2020 12:00:00 AM EST Never Smoker completed Never S moker eCW1 ([facility]) Smoking 04/18/2020 12:00:00 AM EST Never Smoker completed Never S moker eCW1 ([facility]) Smoking 04/18/2020 12:00:00 AM EST Never Smoker completed Never S moker eCW1 ([facility]) Smoking 04/18/2020 12:00:00 AM EST Never Smoker completed Never S moker eCW1 ([facility]) Smoking 04/18/2020 12:00:00 AM EST Never Smoker completed Never S moker eCW1 ([facility]) Smoking 04/18/2020 12:00:00 AM EST Never Smoker completed Never S moker eCW1 ([facility]) Smoking 04/18/2020 12:00:00 AM EST Never Smoker completed Never S moker eCW1 ([facility]) Smoking 04/18/2020 12:00:00 AM EST Never Smoker completed Never S moker eCW1 ([facility]) Smoking 04/17/2020 12:00:00 AM EST Never Smoker completed Never S moker eCW1 ([facility]) Smoking 04/17/2020 12:00:00 AM EST Never Smoker completed Never S moker eCW1 ([facility]) Alcohol intake 04/13/2020 12:00:00 AM EST Never completed [facility] Smoking 04/13/2020 12:00:00 AM EST Former smoker completed Former smoker [facility] Alcohol intake 03/23/2020 12:00:00 AM EST Never completed [facility] Smoking 03/23/2020 12:00:00 AM EST Former smoker completed Former smoker [facility] Smoking 02/15/2020 12:00:00 AM EST Never Smoker completed Never S moker eCW1 ([facility]) Smoking 02/15/2020 12:00:00 AM EST Never Smoker completed Never S moker eCW1 ([facility]) Smoking 02/15/2020 12:00:00 AM EST Never Smoker completed Never S moker eCW1 ([facility]) Smoking 02/15/2020 12:00:00 AM EST Never Smoker completed Never S moker eCW1 ([facility]) Smoking 02/15/2020 12:00:00 AM EST Never Smoker completed Never S moker eCW1 ([facility]) Smoking 02/15/2020 12:00:00 AM EST Never Smoker completed Never S moker eCW1 ([facility]) Smoking 01/24/2020 12:00:00 AM EST Never Smoker completed Never S moker eCW1 ([facility]) Smoking 01/24/2020 12:00:00 AM EST Never Smoker completed Never S moker eCW1 ([facility]) Smoking 01/24/2020 12:00:00 AM EST Never Smoker completed Never S moker eCW1 ([facility]) Smoking 12/21/2019 12:00:00 AM EDT Patient is a former smoker completed Patient is a former smoker MEDENT ([facility]. ) Smoking 11/08/2019 04:04:00 AM EDT Unknown if ever smoked comp leted Unknown if ever smoked [facility] Smoking 11/08/2019 04:04:00 AM EDT Unknown if ever smoked comp leted Unknown if ever smoked [facility] Smoking 10/29/2019 12:00:00 AM EDT Quit completed Quit MEDENT ([facility]) Smoking 10/15/2019 12:31:00 AM EDT Unknown if ever smoked comp leted Unknown if ever smoked [facility] Smoking 10/15/2019 12:31:00 AM EDT Unknown if ever smoked comp leted Unknown if ever smoked [facility] Smoking 10/15/2019 12:31:00 AM EDT Unknown if ever smoked comp leted Unknown if ever smoked [facility] Smoking 10/15/2019 12:31:00 AM EDT Unknown if ever smoked comp leted Unknown if ever smoked [facility] Vital Signs ID Date Data Source UNK Name Value Range Interpretation Code Description Data Source(s) Oxygen saturation in Arterial blood by Pulse oximetry 96 % 96 % eCW1 ([facility]) Respiratory rate 22 /min 22 /min eCW1 ([facility]) Heart rate 100 /min 100 /min eCW1 ([facility]) Body temperature 98.2 [degF] 98.2 [degF] eCW1 ( [facility]) Body height 54.0 [in_i] 54.0 [in_i] eCW1 ([facility]) Oxygen saturation in Arterial blood by Pulse oximetry 94 % 94 % [facility] Body mass index (BMI) [Ratio] 25.61 kg/m2 25.61 kg/m2 [facility] Body weight 63.504 kg 63.504 kg [facility] Body height 157.5 cm 157.5 cm [facility] Heart rate 91 /min 91 /min [facility] Diastolic blood pressure 60 mm[Hg] 60 mm[Hg] [facility] Systolic blood pressure 104 mm[Hg] 104 mm[Hg] [facility] Oxygen saturation in Arterial blood by Pulse oximetry 91 % 91 % [facility] Body mass index (BMI) [Ratio] 25.61 kg/m2 25.61 kg/m2 [facility] Body weight 63.504 kg 63.504 kg [facility] Body height 157.5 cm 157.5 cm [facility] Heart rate 95 /min 95 /min [facility] Diastolic blood pressure 82 mm[Hg] 82 mm[Hg] [facility] Systolic blood pressure 128 mm[Hg] 128 mm[Hg] [facility] Oxygen saturation in Arterial blood by Pulse oximetry 95 % 95 % eCW1 ([facility]) Respiratory rate 20 /min 20 /min eCW1 ([facility]) Heart rate 95 /min 95 /min eCW1 ([facility]) Body temperature 98.0 [degF] 98.0 [degF] eCW1 ( [facility]) Body mass index (BMI) [Ratio] 28.83 kg/m2 28.83 kg/m2 eCW1 ([facility]) Body weight 119.6 [lb_av] 119.6 [lb_av] eCW1 ([facility]) Body height 54.0 [in_i] 54.0 [in_i] eCW1 ([facility]) Oxygen saturation in Arterial blood by Pulse oximetry 99 % 99 % eCW1 ([facility]) Respiratory rate 18 /min 18 /min eCW1 ([facility]) Heart rate 97 /min 97 /min eCW1 ([facility]) Body temperature 98.2 [degF] 98.2 [degF] eCW1 ( [facility]) Body mass index (BMI) [Ratio] 32.93 kg/m2 32.93 kg/m2 eCW1 ([facility]) Body weight 136.6 [lb_av] 136.6 [lb_av] eCW1 ([facility]) Body height 54.0 [in_i] 54.0 [in_i] eCW1 ([facility]) Body temperature 35.4 Liset 35.4 Liset MEDENT ( [facility] Body mass index (BMI) [Ratio] 22.9 kg/m2 22.9 k g/m2 MEDENT ([facility].) Oxygen saturation in Arterial blood by Pulse oximetry 88 % 88 % MEDENT ([facility] Body weight 125.00 [lb_av] 125.00 [lb_av] MEDEN T ([facility] Body height 62 [in_i] 62 [in_i] MEDENT ([facility] 5'2" Body temperature 95.8 [degF] 95.8 [degF] MEDENT ([facility] Heart rate 75 /min 75 /min MEDENT ([facility] Diastolic blood pressure 60 mm[Hg] 60 mm[Hg] MEDENT ([facility] Systolic blood pressure 104 mm[Hg] 104 mm[Hg] M EDENT ([facility] Oxygen saturation in Arterial blood by Pulse oximetry 94 % 94 % eCW1 ([facility]) Respiratory rate 18 /min 18 /min eCW1 ([facility]) Heart rate 92 /min 92 /min eCW1 ([facility]) Body temperature 98.0 [degF] 98.0 [degF] eCW1 ( [facility]) Body mass index (BMI) [Ratio] 31.15 kg/m2 31.15 kg/m2 eCW1 ([facility]) Body weight 129.2 [lb_av] 129.2 [lb_av] eCW1 ([facility]) Body height 54.0 [in_i] 54.0 [in_i] eCW1 ([facility]) Body temperature 36.6 Liset 36.6 Liset MEDENT ( [facility] Body mass index (BMI) [Ratio] 22.0 kg/m2 22.0 k g/m2 MEDENT ([facility] Body weight 120.50 [lb_av] 120.50 [lb_av] MEDEN T ([facility] Body height 62 [in_i] 62 [in_i] MEDENT ([facility] 5'2" Body temperature 97.9 [degF] 97.9 [degF] MEDENT ([facility] Heart rate 88 /min 88 /min MEDENT ([facility] Diastolic blood pressure 64 mm[Hg] 64 mm[Hg] [facility] Systolic blood pressure 116 mm[Hg] 116 mm[Hg] M EDENT ([facility] Body mass index (BMI) [Ratio] 24.4 kg/m2 24.4 k g/m2 MEDENT ([facility]) Body weight 125.00 [lb_av] 125.00 [lb_av] MEDEN T ([facility]) Body height 60 [in_i] 60 [in_i] MEDENT ([facility]) 5'0" Heart rate 78 /min 78 /min MEDENT ([facility]) Diastolic blood pressure 75 mm[Hg] 75 mm[Hg] MEDENT ([facility]) Systolic blood pressure 132 mm[Hg] 132 mm[Hg] M EDENT ([facility]) Oxygen saturation in Arterial blood by Pulse oximetry 98 % 98 % eCW1 ([facility]) Respiratory rate 18 /min 18 /min eCW1 ([facility]) Heart rate 90 /min 90 /min eCW1 ([facility]) Body mass index (BMI) [Ratio] 32.40 kg/m2 32.40 kg/m2 eCW1 ([facility]) Body weight 134.4 [lb_av] 134.4 [lb_av] eCW1 ([facility]) Body height 54.0 [in_i] 54.0 [in_i] eCW1 ([facility]) Body temperature 36.6 Liset 36.6 Liset MEDENT ( [facility] Body mass index (BMI) [Ratio] 23.2 kg/m2 23.2 k g/m2 MEDENT ([facility] Body weight 127.00 [lb_av] 127.00 [lb_av] MEDEN T ([facility] Body height 62 [in_i] 62 [in_i] MEDENT ([facility] 5'2" Body temperature 97.9 [degF] 97.9 [degF] MEDENT ([facility] Heart rate 100 /min 100 /min MEDENT ([facility] Diastolic blood pressure 68 mm[Hg] 68 mm[Hg] MEDENT ([facility] Systolic blood pressure 124 mm[Hg] 124 mm[Hg] M EDENT ([facility] Body temperature 37.1 Liset 37.1 Liset MEDENT ( [facility] Body mass index (BMI) [Ratio] 24.1 kg/m2 24.1 k g/m2 MEDENT ([facility] Body weight 132.00 [lb_av] 132.00 [lb_av] MEDEN T ([facility] Body height 62 [in_i] 62 [in_i] MEDENT ([facility] 5'2" Body temperature 98.7 [degF] 98.7 [degF] MEDENT ([facility] Heart rate 108 /min 108 /min MEDENT ([facility] Diastolic blood pressure 62 mm[Hg] 62 mm[Hg] [facility] Systolic blood pressure 118 mm[Hg] 118 mm[Hg] Cony BOTELLO ([facility].) Deprecated Oxygen saturation in Capillary blood by Oximetry 96 % 96 % eCW1 ([facility]) Respiratory rate 18 /min 18 /min eCW1 ([facility]) Heart rate 93 /min 93 /min eCW1 ([facility]) Body temperature 98.1 [degF] 98.1 [degF] eCW1 ( [facility]) Body mass index (BMI) [Ratio] 28.40 kg/m2 28.40 kg/m2 eCW1 ([facility]) Body weight Measured 117.8 [lb_av] 117.8 [lb_av ] eCW1 ([facility]) Body height 54.0 [in_us] 54.0 [in_us] eCW1 ([facility]) Respiratory rate 18 /min 18 /min eCW1 ([facility]) Heart rate 102 /min 102 /min eCW1 ([facility]) Body temperature 98.1 [degF] 98.1 [degF] eCW1 ( [facility]) Body mass index (BMI) [Ratio] 32.64 kg/m2 32.64 kg/m2 eCW1 ([facility]) Body weight Measured 135.4 [lb_av] 135.4 [lb_av ] eCW1 ([facility]) Body height 54.0 [in_us] 54.0 [in_us] eCW1 ([facility]) Deprecated Oxygen saturation in Capillary blood by Oximetry 88 % 88 % eCW1 ([facility]) ID Date Data Source [id number] 04/18/2020 11:13:00 AM EST [facility] l Name Value Range Interpretation Code Description Data Source(s) WEIGHT 54.8 kilos 54.8 kilos [facility] HEIGHT 152.4 centimeters 152.4 centimeters [facility] WEIGHT 55.2 kilos 55.2 kilos [facility] HEIGHT 152.4 centimeters 152.4 centimeters [facility] WEIGHT 54.6 kilos 54.6 [facility] HEIGHT 152.4 centimeters 152.4 centimeters [facility] WEIGHT 57.5 kilos 57.5 [facility] HEIGHT 152.4 centimeters 152.4 centimeters [facility] ID Date Data Source [id number] 11/16/2019 09:45:00 AM EDT [facility] Name Value Range Interpretation Code Description Data Source(s) HEIGHT 154.94 cm 154.94 cm [facility] are Center WEIGHT RECORDED 58.724071 kg 58.011199 kg [facility] HEIGHT 154.94 cm 154.94 cm [facility] are Center WEIGHT RECORDED 58.085110 kg 58.175107 kg [facility] HEIGHT 154.94 cm 154.94 cm [facility] are Center WEIGHT RECORDED 56.081881 kg 56.162206 kg [facility] HEIGHT 154.94 cm 154.94 cm [facility] are Center WEIGHT RECORDED 56.186646 kg 56.436873 kg [facility] ID Date Data Source [id number] 11/29/2019 11:53:00 AM EDT [facility] Name Value Range Interpretation Code Description Data Source(s) HEIGHT 154.94 cm 154.94 cm [facility] Center WEIGHT RECORDED 63.982508 kg 63.863557 kg [facility] HEIGHT 154.94 cm 154.94 cm [facility] Center WEIGHT RECORDED 63.488215 kg 63.553505 kg [facility] HEIGHT 154.94 cm 154.94 cm [facility] Center WEIGHT RECORDED 58.598476 kg 58.349650 kg [facility] ID Date Data Source [id number] 04/18/2020 11:13:00 AM EST [facility] Name Value Range Interpretation Code Description Data Source(s) WEIGHT 55.3 kilos 55.3 [facility] HEIGHT 152.4 centimeters 152.4 centimeters [facility] WEIGHT 55.3 kilos 55.3 [facility] HEIGHT 152.4 centimeters 152.4 centimeters [facility] Patient Treatment Plan of Care Planned Activity Planned Date Details Description Data Source (s) physical therapy ivis - 05/01/2020 12:00:00 AM EST eCW1 ([facility]) physical therapy eval and tx - 05/01/2020 12:00:00 AM EST eCW1 ([facility]) physical therapy eval and tx - 05/01/2020 12:00:00 AM EST eCW1 ([facility]) torsemide 20 MG Oral Tablet 04/18/2020 12:00:00 AM EST eCW1 ([facility]) empagliflozin 25 MG Oral Tablet [Jardiance] 04/18/2020 12:00:00 AM EST eCW1 ([facility]) torsemide 20 MG Oral Tablet 04/18/2020 12:00:00 AM EST eCW1 ([facility]) empagliflozin 25 MG Oral Tablet [Jardiance] 04/18/2020 12:00:00 AM EST eCW1 ([facility]) torsemide 20 MG Oral Tablet 04/18/2020 12:00:00 AM EST eCW1 ([facility]) empagliflozin 25 MG Oral Tablet [Jardiance] 04/18/2020 12:00:00 AM EST eCW1 ([facility]) torsemide 20 MG Oral Tablet 04/18/2020 12:00:00 AM EST eCW1 ([facility]) empagliflozin 25 MG Oral Tablet [Jardiance] 04/18/2020 12:00:00 AM EST eCW1 ([facility]) torsemide 20 MG Oral Tablet 04/18/2020 12:00:00 AM EST eCW1 ([facility]) empagliflozin 25 MG Oral Tablet [Jardiance] 04/18/2020 12:00:00 AM EST eCW1 ([facility]) torsemide 20 MG Oral Tablet 04/18/2020 12:00:00 AM EST eCW1 ([facility]) empagliflozin 25 MG Oral Tablet [Jardiance] 04/18/2020 12:00:00 AM EST eCW1 ([facility]) Prevalon Heel Protector - 04/17/2020 12:00:00 AM EST eCW1 ([facility]) Prevalon Heel Protector - 04/17/2020 12:00:00 AM EST eCW1 ([facility]) Prevalon Heel Protector - 04/17/2020 12:00:00 AM EST eCW1 ([facility]) Prevalon Heel Protector - 04/17/2020 12:00:00 AM EST eCW1 ([facility]) Medical Compression Stockings - 04/17/2020 12:00:00 AM EST eCW1 ([facility]) Prevalon Heel Protector - 04/17/2020 12:00:00 AM EST eCW1 ([facility]) Medical Compression Stockings - 04/17/2020 12:00:00 AM EST eCW1 ([facility]) Prevalon Heel Protector - 04/17/2020 12:00:00 AM EST eCW1 ([facility]) Prevalon Heel Protector - 04/17/2020 12:00:00 AM EST eCW1 ([facility]) Metolazone 2.5 MG Oral Tablet 04/13/2020 12:00:00 AM EST [facility] Enalapril Maleate 20 MG Oral Tablet 04/13/2020 12:00:00 AM EST [facility] rivaroxaban 20 MG Oral Tablet [Xarelto] 12/18/2019 12:00:00 AM EDT [facility] oxygen concentrator 11/10/2019 12:00:00 AM EDT eCW1 ([facility] [facility] Portable oxygen concentrator 10/28/2019 12:00:00 AM EDT [email or web address] ([facility]) Portable oxygen concentrator 10/28/2019 12:00:00 AM EDT [email or web address] ([facility]) Portable oxygen concentrator 10/28/2019 12:00:00 AM EDT [email or web address] ([facility]) Blood Pressure Cuff - 08/06/2019 12:00:00 AM EDT [email or web address] ([facility]) Furosemide 40 MG Oral Tablet 07/23/2019 12:00:00 AM EDT [email or web address] ([facility]) Enalapril Maleate 20 MG Oral Tablet [facility] Ranitidine 150 MG Oral Capsule [facility] Hydrochlorothiazide 25 MG Oral Tablet [facility] Amlodipine 10 MG Oral Tablet [facility] Atenolol 100 MG Oral Tablet [facility]
[2020-05-03] MEDS ORDERED: ACETAMINOPHEN TAB 650MG DOSE (2X325MG) PO PRN (19:15)
[2020-05-03] MEDS ORDERED: MAALOX 30 ML SUSP *UDC PO PRN (19:15)
[2020-05-03] MEDS ORDERED: MOM 30ML SUSPENSION UDC PO PRN (19:15)
--- OUTSIDE RECORDS SUMMARY | 2020-05-03 19:45 | CCD ---
Author Author [facility] Organization [facility] Address Unknown Phone Unavailable Care Team Providers Care Fixed Income Portfolio Manager Name Role Phone ARCHANA, MANN MOHAMMAD Unavailable [...] Unavailable Unavailable JODIE EATON PA Unavailable Unavailable PETROFF, JODIE PA [...] PA Unavailable Unavailable ALIX JR, MORALES Unavailable [phone] ALIX JR, MORALES Unavailable [phone] ALIX JR, MORALES Unavailable [phone] Yandel Keyes MD Unavailable Unavailable BARBARA, @ [facility] Unavailable Unavailable KRASNIAK, L MARILIA BIRD [...] NIELSEN MD Unavailable Unavailable Kojo, A Latha ANNUAL GIVING DIRECTOR Unavailable Unavailable Kojo, A Latha ANNUAL GIVING DIRECTOR Unavailable Unavailable Kojo, A Latha ANNUAL GIVING DIRECTOR Unavailable Unavailable Kojo, A Latha ANNUAL GIVING DIRECTOR Unavailable Unavailable Kojo, A Latha ANNUAL GIVING DIRECTOR Unavailable Unavailable Kojo, A Latha ANNUAL GIVING DIRECTOR Unavailable Unavailable Kojo, A Latha ANNUAL GIVING DIRECTOR Unavailable Unavailable Kojo, A Latha ANNUAL GIVING DIRECTOR Unavailable Unavailable Kojo, A Latha ANNUAL GIVING DIRECTOR Unavailable Unavailable Kojo, A Latha ANNUAL GIVING DIRECTOR Unavailable Unavailable Kojo, A Latha ANNUAL GIVING DIRECTOR Unavailable Unavailable Kojo, A Latha ANNUAL GIVING DIRECTOR Unavailable Unavailable Kojo, A Latha ANNUAL GIVING DIRECTOR Unavailable Unavailable Kojo, A Latha ANNUAL GIVING DIRECTOR Unavailable Unavailable Kojo, A Latha ANNUAL GIVING DIRECTOR Unavailable Unavailable Kojo, A Latha ANNUAL GIVING DIRECTOR Unavailable Unavailable Kojo, A Latha ANNUAL GIVING DIRECTOR Unavailable Unavailable Kojo, A Latha ANNUAL GIVING DIRECTOR Unavailable Unavailable Kojo, A Latha ANNUAL GIVING DIRECTOR Unavailable Unavailable Kojo, A Latha ANNUAL GIVING DIRECTOR Unavailable Unavailable Kojo, A Latha ANNUAL GIVING DIRECTOR Unavailable Unavailable Kojo, A Latha ANNUAL GIVING DIRECTOR Unavailable Unavailable Kojo, A Latha ANNUAL GIVING DIRECTOR Unavailable Unavailable Kojo, A Latha ANNUAL GIVING DIRECTOR Unavailable Unavailable Kojo, A Latha ANNUAL GIVING DIRECTOR Unavailable Unavailable Kojo, A Latha ANNUAL GIVING DIRECTOR Unavailable Unavailable Kojo, A Latha ANNUAL GIVING DIRECTOR Unavailable Unavailable Kojo, A Latha ANNUAL GIVING DIRECTOR Unavailable Unavailable Kojo, A Latha ANNUAL GIVING DIRECTOR Unavailable Unavailable Kojo, A Latha ANNUAL GIVING DIRECTOR Unavailable Unavailable Kojo, A Latha ANNUAL GIVING DIRECTOR Unavailable Unavailable Kojo, A Latha ANNUAL GIVING DIRECTOR Unavailable Unavailable Kojo, A Latha ANNUAL GIVING DIRECTOR Unavailable Unavailable Kojo, A Latha ANNUAL GIVING DIRECTOR Unavailable Unavailable Kojo, A Latha ANNUAL GIVING DIRECTOR Unavailable Unavailable Kojo, A Latha ANNUAL GIVING DIRECTOR Unavailable Unavailable Kojo, A Latha ANNUAL GIVING DIRECTOR Unavailable Unavailable Kojo, A Latha ANNUAL GIVING DIRECTOR Unavailable Unavailable Kojo, A Latha ANNUAL GIVING DIRECTOR Unavailable Unavailable Kojo, A Latha ANNUAL GIVING DIRECTOR Unavailable Unavailable Kojo, A Latha ANNUAL GIVING DIRECTOR Unavailable Unavailable Kojo, A Latha ANNUAL GIVING DIRECTOR Unavailable Unavailable Kojo, A Latha ANNUAL GIVING DIRECTOR Unavailable Unavailable Kojo, A Latha ANNUAL GIVING DIRECTOR Unavailable Unavailable Morales Orozco MD Unavailable Unavailable [...] Unavailable Unavailable Morales Orozco MD Unavailable Unavailable Morlaes Orozco MD Unavailable Unavailable Morales Orozco MD Unavailable Unavailable Morales Orozco MD Unavailable Unavailable Morales Orozco MD Unavailable Unavailable Morales Orozco MD Unavailable Unavailable Morales Orozco MD Unavailable Unavailable Morales Orozco MD Unavailable Unavailable Morales Orozco MD Unavailable Unavailable oMrales Orozco MD Unavailable Unavailable Morales Orozco MD [...] Latha PA-C Unavailable Unavailable Amira, L Berna INTERLOCKING AND SIGNAL MECHANIC Unavailable Unavailable Amira, L Berna INTERLOCKING AND SIGNAL MECHANIC Unavailable Unavailable Gladwin, L Berna INTERLOCKING AND SIGNAL MECHANIC Unavailable Unavailable Amira, L Berna INTERLOCKING AND SIGNAL MECHANIC Unavailable Unavailable Gladwin, L Berna INTERLOCKING AND SIGNAL MECHANIC Unavailable Unavailable Amira, L Berna INTERLOCKING AND SIGNAL MECHANIC Unavailable Unavailable Gladwin, L Berna INTERLOCKING AND SIGNAL MECHANIC Unavailable Unavailable Gladwin, L Berna INTERLOCKING AND SIGNAL MECHANIC Unavailable Unavailable Amira, L Berna INTERLOCKING AND SIGNAL MECHANIC Unavailable Unavailable Gladwin, L Berna INTERLOCKING AND SIGNAL MECHANIC Unavailable Unavailable Gladwin, L Berna INTERLOCKING AND SIGNAL MECHANIC Unavailable Unavailable Amira, L Berna INTERLOCKING AND SIGNAL MECHANIC Unavailable Unavailable Gladwin, L Berna INTERLOCKING AND SIGNAL MECHANIC Unavailable Unavailable Gladwin, L Berna INTERLOCKING AND SIGNAL MECHANIC Unavailable Unavailable Gladwin, L Berna INTERLOCKING AND SIGNAL MECHANIC Unavailable Unavailable Gladwin, L Berna INTERLOCKING AND SIGNAL MECHANIC Unavailable Unavailable Amira, L Berna INTERLOCKING AND SIGNAL MECHANIC Unavailable Unavailable Gladwin, L Berna INTERLOCKING AND SIGNAL MECHANIC Unavailable Unavailable Amira, L Berna INTERLOCKING AND SIGNAL MECHANIC Unavailable Unavailable Amira, L Berna INTERLOCKING AND SIGNAL MECHANIC Unavailable Unavailable Amira, L Berna INTERLOCKING AND SIGNAL MECHANIC Unavailable Unavailable Amira, L Berna INTERLOCKING AND SIGNAL MECHANIC Unavailable Unavailable Amira, L Berna INTERLOCKING AND SIGNAL MECHANIC Unavailable Unavailable Gladwin, L Berna INTERLOCKING AND SIGNAL MECHANIC Unavailable Unavailable Amira, L Berna INTERLOCKING AND SIGNAL MECHANIC Unavailable Unavailable Gladwin, L Berna INTERLOCKING AND SIGNAL MECHANIC Unavailable Unavailable Gladwin, L Berna INTERLOCKING AND SIGNAL MECHANIC Unavailable Unavailable Amira, L Berna INTERLOCKING AND SIGNAL MECHANIC Unavailable Unavailable Gladwin, L Berna INTERLOCKING AND SIGNAL MECHANIC Unavailable Unavailable Gladwin, L Berna INTERLOCKING AND SIGNAL MECHANIC Unavailable Unavailable Gladwin, L Berna INTERLOCKING AND SIGNAL MECHANIC Unavailable Unavailable Gladwin, L Berna INTERLOCKING AND SIGNAL MECHANIC Unavailable Unavailable ALIASES , DEFAULT / GENERIC [...] MATILDA, YOVANA BIRD Unavailable Unavailable MATILDA, YOVANA IBRD Unavailable Unavailable MATILDA, YOVANA BIRD Unavailable Unavailable [...] is protected by Article 27-F of the [facility] Public Health law. If you continue you may have access to information: Regarding HIV / AIDS; Provided by facilities licensed or operated by the [facility] Office of Mental Health; or Provided by the [facility] Office for People With Developmental Disabilities. If such information is present, then the following [facility] mandated warning applies: This information has [...] law may result in a fine or penitentiary sentence or both. A general authorization for the release of medical or other information is NOT sufficient authorization for further disc losure. Allergies and Adverse Reactions Type Description Substance Reaction Status Data Source(s ) Propensity to adverse reactions METFORMIN AND RELATED Metformin And Related Active [facility] Drug allergy No Known Allergies No Known Allergies [facility] Drug allergy Metformin HCl Metformin stomach upset Active eCW1 [facility] [place] Drug allergy Drug allergy NKDA MEDENT ([facility] Family History Family Member Name Family Member Gender Family Member Status Date o f Status Description Data Source(s) Unknown Female Problem MED[facility] ([facility] Unknown Female Problem [facility] ([facility] Unknown Female Problem [facility] ([facility] Unknown Female Problem MEDENT ([facility]) Encounters Encounter Providers Location Date Indications Data Source(s ) [facility] 05/02/2020 12:00:00 AM EST eCW1 [facility] [place] 05/01/2020 12:00:00 AM EST eCW1 [facility] [place] 05/01/2020 12:00:00 AM EST eCW1 [facility] [place] 04/27/2020 12:00:00 AM EST eCW1 [facility] [place] 04/22/2020 12:00:00 AM EST eCW1 [facility] [place] 04/19/2020 12:00:00 AM EST eCW1 ([facility] [place] Outpatient Attender: Latha STORMCReferrer: Latha Brown [facility] EM[facility]Y [facility] 04/18/2020 11:13:00 AM EST - 04/18/2020 11:13:00 AM EST [facility] Outpatient [facility] 04/18/2020 12:00:00 AM EST eCW1 [facility] [place] 04/18/2020 12:00:00 AM EST eCW1 ([facility] [place] Outpatient Attender: Latha HOWARD 04/17/2020 09:39 :00 AM EST [facility] 04/17/2020 12:00:00 AM EST eCW1 [facility] [place] 04/17/2020 12:00:00 AM EST eCW1 [facility] [place] 04/17/2020 12:00:00 AM EST eCW1 ([facility] [place] Outpatient Attender: YOVANA GREY [facility] 09:17:00 AM EST - 04/13/2020 09:18:00 AM EST [id number] [facility] [id number] R609 [id number] Patient discharged. Outpatient Attender: YOVANA HERRERASJAnnie.GVR 12:00:00 AM [facility] - 04/13/2020 10:09:31 AM EST [facility] Outpatient Attender: Latha HOWARD 03/29/2020 08:00 :00 AM [facility] Admission cancelled. Disregard status an d admitted date. Outpatient Attender: YOVANA HERRERASJAnnie.GVR 12:00:00 AM EST - 03/23/2020 10:26:33 AM EST [facility] 02/28/2020 12:00:00 AM EST eCW1 [facility] [place] 02/28/2020 12:00:00 AM EST eCW1 ([facility] [place] Outpatient Attender: Latha WOODP 02/25/2020 12:00 :00 PM [facility] Out[facility] 02/17/2020 12:00:00 AM EST eCW1 ([facility] [place] Outpatient Attender: Latha HOWARD 02/15/2020 08:41 :00 AM [facility] Out[facility] 02/15/2020 12:00:00 AM EST eCW1 ([facility]) Outpatient [facility] 02/15/2020 12:00:00 AM EST eCW1 [facility] [place] 02/03/2020 12:00:00 AM EST eCW1 ([facility] [place] 01/25/2020 12:00:00 AM EST eCW1 ([facility] [place] Outpatient Attender: Latha HOWARD 01/24/2020 03:07 :00 PM [facility] Out[facility] 01/24/2020 12:00:00 AM EST eCW1 ([facility]) Inpatient Attender: Higinio SMITH ttender: HIGINIO BLACKAdmitter: HIGINIO BLACKReferrer: Latha WOODP EMERGENCY ROOM-2N 01/22/2020 04:2 0:00 PM EST - 01/25/2020 01:05:00 PM [facility] Patient discharged. Inpatient Attender: Higinio SMITH ttender: HIGINIO BLACKAttender: JODIE EATON PAAdmitter: HIGINIO BLACKReferrer: Latha Kojo [facility] EMERGENCY ROOM-2N 01/21/2020 05:57:00 PM EST - 01/22/2020 04:19:00 PM [facility] Patient discharged. Outpatient Attender: Berna Collier [facility] 01/21/2020 02:34:00 PM EST [facility] Outpatient [facility] 01/21/2020 12:00:00 AM EST eCW1 ([facility] [place] Office Visit Attender: Morales Orozco MD [facility] 08/2019 02:15:00 PM EDT MEDENT ([facility] Outpatient [facility] 12/17/2019 12:00:00 AM EDT eCW1 ([facility] [place] Emergency Attender: Sae Ingram PAReferrer: Jessica Brown [facility] EMERGENCY [facility]-ER 12/09/2019 04:40:00 PM EDT - 12/09/2019 11:00:00 PM EDT [facility] Patient discharged. Outpatient [facility] 12/08/2019 12:00:00 AM EDT eCW1 ([facility] [place] Outpatient Attender: ASHLEY JIMENEZ 12/02/2019 01:46:0 0 PM EDT [facility] Outpatient Attender: JERRY MONROY SR 11/25/2019 09:30:00 AM EDT [facility] Outpatient [facility] 11/25/2019 12:00:00 AM EDT eCW1 ([facility] [place] 11/10/2019 12:00:00 AM EDT eCW1 ([facility] [place] Inpatient Attender: ANNA Landrum nder: LAYO NIELSEN MDAdmitter: Morales Orozco MDConsultant: SINGH DUARTE MD 11/08/2019 12:17:00 AM EDT - 11/10/2019 08:00:00 PM EDT LEUKOCYTOSIS, AFIB, HYPOXIA [facility] LEUKOCYTOSIS, AFIB, HYPOXIA Patient discharged. Outpatient Attender: Morales Orozco MD [facility] 08:30:00 AM EDT MEDENT ([facility] Outpatient Attender: SINGH DUARTE MD [facility] 11/03/2019 03:00:00 PM EDT MEDENT ([facility]) Outpatient [facility] 11/01/2019 12:00:00 AM EDT eCW1 ([facility] [place] Outpatient Attender: JERRY MONROY SRReferrer: Jessica Brown [facility] 10/28/2019 07:37:00 AM EDT - 10/28/2019 07:37:00 AM EDT [facility] Outpatient [facility] 10/28/2019 12:00:00 AM EDT eCW1 ([facility] [place] Preadmit Attender: Morales Orozco MDAdmitter: Morales brewer MD 10/16/2019 02:30:00 PM EDT EDEMA R60.9 [facility] EDEMA R60.9 Inpatient Attender: DEFAULT / GENE KENDRA / UNKNOWN PROVIDER ALIASES Attender: CHICA COLE MDAttender: Yandel Keyes MD 10/14/2019 09:45:00 PM EDT - 10/15/2019 07:09:00 PM EDT NEW ONSET A-FIB [facility] NEW ONSET A-FIB Patient discharged. Outpatient Attender: Morales Orozco MDAdmitter: Morales brewer MD 10/05/2019 01:30:00 PM EDT - 10/15/2019 11:59:00 PM EDT EDEMA [facility] EDEMA Patient discharged. Outpatient Attender: Morales [facility] 08/2019 10:00:00 AM EDT MEDENT ([facility] Outpatient Attender: Morales Orozco MDAdmitter: Morales brewer MD 09/07/2019 03:22:00 PM EDT - 09/07/2019 03:23:00 PM EDT E11.9,I10,E78.00 [facility] E11.9,I10,E78.00 Patient discharged. Outpatient Attender: Morales [facility] 10:45:00 AM EDT MEDENT ([facility] 08/24/2019 12:00:00 AM EDT eCW1 ([facility] [place] Outpatient Attender: Latha Meyer PA-C 08/06/2019 10:20 :00 AM EDT [facility] Admission cancelled. Disregard status an d admitted date. Outpatient Attender: Latha Brown FNPReferrer: Latha HOWARD EMERGENCY ROOM-RIVI 08/06/2019 09:41:00 AM EDT - 08/06/2019 09:41:00 AM EDT [facility] Admission cancelled. Disregard status an d admitted date. [facility] 08/06/2019 12:00:00 AM EDT eCW1 ([facility] [place] Outpatient Attender: Latha Meyer PA-C 07/23/2019 10:28 :00 AM EDT [facility] C EN[facility] 07/23/2019 12:00:00 AM EDT eCW1 ([facility]) [facility] 06/10/2019 12:00:00 AM EDT eCW1 ([facility]) [facility] 05/20/2019 12:00:00 AM EST eCW1 ([facility] [place]IN[facility] LAURIBTUSHAR-LAURIB. 04/26/2019 08:08:11 AM EST [facility] CLINIC Attender: MARILIA [email or web address] 03/31/2019 12:00: 00 AM EST [facility] CLINIC LAURIBRosaES-LAURIB. 03/29/2019 02:26:43 PM EST [facility] Outpatient Attender: Latha HOWARD 02/18/2019 10:41 :00 AM [facility] Outpatient Attender: Latha Brown FNPReferrer: Latha HOWARD EMERGENCY ROOM-LAB 02/18/2019 09:44:00 AM EST - 02/18/2019 09:44:00 AM [facility] Emergency Attender: ZACH FIERRO PAReferrer: Mya calvilloith Kojo [facility] EMERGENCY ROOM-ER 07/06/2018 05:50:00 PM EDT - 07/06/2018 11:45:00 PM [facility] Emergency Attender: MORALES THOMSON JR Attender: MORALES THOMSON JRReferrer: Lathadarin Brown [facility] EMERGENCY ROOM-ER 09/20/2017 10:27:00 PM EDT - 09/21/2017 01:50:00 AM [facility] Outpatient Attender: Latha Mackayotte [facility] EMERGENCY ROOM-LA B 07/28/2017 03:14:00 PM EDT - 07/28/2017 03:14:00 PM [facility] Inpatient Attender: DENISE JOYCE PAAdmitter: Eliza Rocha MD EMERGENCY ROOM-2N 02/26/2017 05:33:00 PM EST - 02/27/2017 04:00:00 PM [facility] Functional Status Medications Medication Brand Name Start Date Product Form Dose Route Admi nistrative Instructions Pharmacy Instructions Status Indications Reaction Description Data Source(s) physical therapy eval and tx - UNK 05/01/2020 12:00:00 AM EST active physical therapy eval and tx - eCW1 ([facility] physical therapy eval and tx - UNK 05/01/2020 12:00:00 AM EST active physical therapy eval and tx - eCW1 ([facility]) physical therapy eval and tx - UNK 05/01/2020 12:00:00 AM EST active physical therapy eval and tx - eCW1 ([facility]) 20 mg 04/19/2020 12:00:00 AM EST tablet [...] EST active Torsemide 20 MG e CW1 ([facility] [place] empagliflozin 25 MG Oral Tablet [Jardiance] Jardiance 25 MG Jardiance 25 MG 04/18/2020 12:00:00 AM EST 1.0 {tablet} active Jardiance 25 MG eCW1 ([facility] [place] empagliflozin 25 MG Oral Tablet [Jardiance] Jardiance 25 MG Jardiance 25 MG 04/18/2020 12:00:00 AM EST 1.0 {tablet} active Jardiance 25 MG eCW1 ([facility] [place] empagliflozin 25 MG Oral Tablet [Jardiance] Jardiance 25 MG Jardiance 25 MG 04/18/2020 12:00:00 AM EST 1.0 {tablet} active Jardiance 25 MG eCW1 ([facility] [place] torsemide 20 MG Oral Tablet Torsemide 20 MG Torsemide 20 MG 04/18/2020 12:00:00 AM EST active Torsemide 20 MG e CW1 ([facility] [place] torsemide 20 MG Oral Tablet Torsemide 20 MG Torsemide 20 MG 04/18/2020 12:00:00 AM EST active Torsemide 20 MG e CW1 ([facility] [place] empagliflozin 25 MG Oral Tablet [Jardiance] Jardiance 25 MG Jardiance 25 MG 04/18/2020 12:00:00 AM EST 1.0 {tablet} active Jardiance 25 MG eCW1 ([facility] [place] empagliflozin 25 MG Oral Tablet [Jardiance] Jardiance 25 MG Jardiance 25 MG 04/18/2020 12:00:00 AM EST 1.0 {tablet} active Jardiance 25 MG eCW1 ([facility] [place] torsemide 20 MG Oral Tablet Torsemide 20 MG Torsemide 20 MG 04/18/2020 12:00:00 AM EST active Torsemide 20 MG e CW1 ([facility] [place] torsemide 20 MG Oral Tablet Torsemide 20 MG Torsemide 20 MG 04/18/2020 12:00:00 AM EST active Torsemide 20 MG e CW1 ([facility] [place] empagliflozin 25 MG Oral Tablet [Jardiance] Jardiance 25 MG Jardiance 25 MG 04/18/2020 12:00:00 AM EST 1.0 {tablet} active Jardiance 25 MG eCW1 ([facility] [place] empagliflozin 25 MG Oral Tablet [Jardiance] Jardiance 25 MG Jardiance 25 MG 04/18/2020 12:00:00 AM EST 1.0 {tablet} active Jardiance 25 MG eCW1 ([facility] [place] torsemide 20 MG Oral Tablet Torsemide 20 MG Torsemide 20 MG 04/18/2020 12:00:00 AM EST active Torsemide 20 MG e CW1 ([facility] [place] empagliflozin 25 MG Oral Tablet [Jardiance] Jardiance 25 MG Jardiance 25 MG 04/18/2020 12:00:00 AM EST 1.0 {tablet} active Jardiance 25 MG eCW1 ([facility] [place] torsemide 20 MG Oral Tablet Torsemide 20 MG Torsemide 20 MG 04/18/2020 12:00:00 AM EST active Torsemide 20 MG e CW1 ([facility] [place] empagliflozin 25 MG Oral Tablet [Jardiance] Jardiance 25 MG Jardiance 25 MG 04/18/2020 12:00:00 AM EST 1.0 {tablet} active Jardiance 25 MG eCW1 ([facility] [place] torsemide 20 MG Oral Tablet Torsemide 20 MG Torsemide 20 MG 04/18/2020 12:00:00 AM EST active Torsemide 20 MG e CW1 ([facility] [place] torsemide 20 MG Oral Tablet Torsemide 20 MG Torsemide 20 MG 04/18/2020 12:00:00 AM EST active Torsemide 20 MG e CW1 ([facility] [place] Prevalon Heel Protector - Prevalon Heel Protector - 04/17/2020 1 2:00:00 AM EST active Prevalon Heel Pr otector - eCW1 ([facility] [place] Medical Compression Stockings - Medical Compression Stocking s - 04/17/2020 12:00:00 AM EST active Medical Compression Stockings - eCW1 ([facility] [place] Prevalon Heel Protector - Prevalon Heel Protector - 04/17/2020 1 2:00:00 AM EST active Prevalon Heel Pr otector - eCW1 ([facility] [place] Medical Compression Stockings - Medical Compression Stocking s - 04/17/2020 12:00:00 AM EST active Medical Compression Stockings - eCW1 ([facility] [place] Medical Compression Stockings - Medical Compression Stocking s - 04/17/2020 12:00:00 AM EST active Medical Compression Stockings - eCW1 ([facility] [place] Medical Compression Stockings - Medical Compression Stocking s - 04/17/2020 12:00:00 AM EST active Medical Compression Stockings - eCW1 ([facility] [place] Medical Compression Stockings - Medical Compression Stocking s - 04/17/2020 12:00:00 AM EST active Medical Compression Stockings - eCW1 ([facility] [place] Prevalon Heel Protector - Prevalon Heel Protector - 04/17/2020 1 2:00:00 AM EST active Prevalon Heel Pr otector - eCW1 ([facility] [place] Medical Compression Stockings - Medical Compression Stocking s - 04/17/2020 12:00:00 AM EST active Medical Compression Stockings - eCW1 ([facility] [place] Medical Compression Stockings - Medical Compression Stocking s - 04/17/2020 12:00:00 AM EST active Medical Compression Stockings - eCW1 ([facility] [place] Medical Compression Stockings - Medical Compression Stocking s - 04/17/2020 12:00:00 AM EST active Medical Compression Stockings - eCW1 ([facility] [place] Medical Compression Stockings - Medical Compression Stocking s - 04/17/2020 12:00:00 AM EST active Medical Compression Stockings - eCW1 ([facility] [place] Prevalon Heel Protector - Prevalon Heel Protector - 04/17/2020 1 2:00:00 AM EST active Prevalon Heel Pr otector - eCW1 ([facility] [place] Prevalon Heel Protector - Prevalon Heel Protector - 04/17/2020 1 2:00:00 AM EST active Prevalon Heel Pr otector - eCW1 ([facility] [place] Prevalon Heel Protector - Prevalon Heel Protector - 04/17/2020 1 2:00:00 AM EST active Prevalon Heel Pr otector - eCW1 [place] [place] [facility] [place] Medical Compression Stockings - Medical Compression Stocking s - 04/17/2020 12:00:00 AM EST active Medical Compression Stockings - eCW1 [place] [place] [facility] [place] Prevalon Heel Protector - Prevalon Heel Protector - 04/17/2020 1 2:00:00 AM EST active Prevalon Heel Pr otector - eCW1 [place] [place] [facility] [place] Medical Compression Stockings - Medical Compression Stocking s - 04/17/2020 12:00:00 AM EST active Medical Compression Stockings - eCW1 [place] [place] [facility] [place] Prevalon Heel Protector - Prevalon Heel Protector - 04/17/2020 1 2:00:00 AM EST active Prevalon Heel Pr otector - eCW1 ([facility] [place] [facility] [place] Prevalon Heel Protector - Prevalon Heel Protector - 04/17/2020 1 2:00:00 AM EST active Prevalon Heel Pr otector - eCW1 ([facility] [place] [facility] [place] Prevalon Heel Protector - Prevalon Heel Protector - 04/17/2020 1 2:00:00 AM EST active Prevalon Heel Pr otector - eCW1 [place] [place] [facility] [place] Prevalon Heel Protector - Prevalon Heel Protector - 04/17/2020 1 2:00:00 AM EST active Prevalon Heel Pr otector - eCW1 ([facility] [place] [facility] [place] 20-100 mcg/actuation 04/14/2020 12:00:00 AM EST mist 12 INHALE ONE PUFF BY MOUTH FOUR TIMES A DAY INHALE ONE PUFF BY MOUTH FOUR TIMES A DAY SOLD: 04/14/2020 [facility] Metolazone 2.5 MG Oral Tablet metolazone (ZAROXOLYN) 2 .5 MG tablet metolazone (ZAROXOLYN) 2.5 MG tablet 04/13/2020 12:00:00 AM EST 2.5 mg Oral active Edema, unspecified type Take 1 tablet (2.5 mg total) by mout h every other day [facility] Edema, unspecified type Enalapril Maleate 20 MG Oral Tablet enalapril (VASOTEC ) 20 MG tablet enalapril (VASOTEC) 20 MG tablet 04/13/2020 12:00:00 AM EST 20 mg Oral active Take 1 tablet (20 mg total) by mouth daily [facility] 2.5 mg 04/13/2020 12:00:00 AM EST tablet [...] TWICE A DAY SOLD: 03/01/2020 [facility] 20 mg 02/29/2020 [...] 08/2019 12:00:00 AM EDT ORAL active [facility] ([facility]) Omeprazole 40 MG Delayed Release Oral Capsule Omeprazole 12/21/2019 12:00:00 AM EDT ORAL active [facility] ([facility] rivaroxaban 20 MG Oral Tablet [Xarelto] XARELTO 20 MG TABS X ARELTO 20 MG TABS 12/18/2019 12:00:00 AM EDT 20 mg Oral aborted Take 20 mg by mouth daily [facility] 20 mg 12/09/2019 12:00:00 AM EDT tablet 60 TAKE ONE TABLET BY MOUTH TWICE A DAY TAKE ONE TABLET BY MOUTH TWICE A DAY SOLD: 12/09/2019 [facility] Furosemide 20 MG Oral Tablet Furosemide* Furosemide* 06:41:00 PM EDT 40 MG ORAL active [facility] Furosemide 20 MG Oral Tablet Furosemide* Furosemide* 020 06:41:00 PM EDT 40 MG ORAL active [facility] Cefuroxime 250 MG Oral Tablet Cefuroxime Axetil Cefuroxime A xetil 11/10/2019 06:40:00 PM EDT 250 MG ORAL active [facility] Cefuroxime 250 MG Oral Tablet Cefuroxime Axetil Cefuroxime A xetil 11/10/2019 06:40:00 PM EDT 250 MG ORAL active [facility] oxygen concentrator UNK 11/10/2019 12:00:00 AM EDT active oxygen concentrator eCW1 ([facility] Cefuroxime 250 MG Oral Tablet [Ceftin] Ceftin 11/10/2019 12:00:00 AM EDT ORAL completed MED[facility] ([facility] oxygen concentrator UNK 11/10/2019 12:00:00 AM EDT active oxygen concentrator eCW1 ([facility]) oxygen concentrator UNK 11/10/2019 12:00:00 AM EDT active oxygen concentrator eCW1 ([facility]) oxygen concentrator UNK 11/10/2019 12:00:00 AM EDT active oxygen concentrator eCW1 ([facility]) oxygen concentrator UNK 11/10/2019 12:00:00 AM EDT active oxygen concentrator eCW1 ([facility]) oxygen concentrator UNK 11/10/2019 12:00:00 AM EDT active oxygen concentrator eCW1 ([facility]) oxygen concentrator UNK 11/10/2019 12:00:00 AM EDT active oxygen concentrator eCW1 ([facility]) empagliflozin 10 MG Oral Tablet Empagliflozin Empagliflozin 11/08/2019 12:43:00 AM EDT 10 MG ORAL active [facility] empagliflozin 10 MG Oral Tablet Empagliflozin Empagliflozin 11/08/2019 12:43:00 AM EDT 10 MG ORAL active [facility] 20 mg 10/29/2019 12:00:00 AM EDT tablet 30 TAKE ONE TABLET BY MOUTH EVERY DAY TAKE ONE TABLET BY MOUTH EVERY DAY SOLD: 10/29/2019 [facility] Portable oxygen concentrator UNK 10/28/2019 12:00:00 AM EDT active Portable oxygen concentrator eCW1 ([facility]) Portable oxygen concentrator UNK 10/28/2019 12:00:00 AM EDT active Portable oxygen concentrator eCW1 ([facility]) Portable oxygen concentrator UNK 10/28/2019 12:00:00 AM EDT active Portable oxygen concentrator eCW1 ([facility]) Portable oxygen concentrator UNK 10/28/2019 12:00:00 AM EDT active Portable oxygen concentrator eCW1 ([facility]) Portable oxygen concentrator UNK 10/28/2019 12:00:00 AM EDT active Portable oxygen concentrator eCW1 ([facility]) Portable oxygen concentrator UNK 10/28/2019 12:00:00 AM EDT active Portable oxygen concentrator eCW1 ([facility]) Portable oxygen concentrator UNK 10/28/2019 12:00:00 AM EDT active Portable oxygen concentrator eCW1 ([facility]) Portable oxygen concentrator UNK 10/28/2019 12:00:00 AM EDT active Portable oxygen concentrator eCW1 ([facility]) Portable oxygen concentrator UNK 10/28/2019 12:00:00 AM EDT active Portable oxygen concentrator eCW1 ([facility]) Portable oxygen concentrator UNK 10/28/2019 12:00:00 AM EDT active Portable oxygen concentrator eCW1 ([facility]) Portable oxygen concentrator UNK 10/28/2019 12:00:00 AM EDT active Portable oxygen concentrator eCW1 ([facility]) Portable oxygen concentrator UNK 10/28/2019 12:00:00 AM EDT active Portable oxygen concentrator eCW1 ([facility]) Portable oxygen concentrator UNK 10/28/2019 12:00:00 AM EDT active Portable oxygen concentrator eCW1 ([facility]) Portable oxygen concentrator UNK 10/28/2019 12:00:00 AM EDT active Portable oxygen concentrator eCW1 ([facility]) Portable oxygen concentrator UNK 10/28/2019 12:00:00 AM EDT active Portable oxygen concentrator eCW1 ([facility]) Portable oxygen concentrator UNK 10/28/2019 12:00:00 AM EDT active Portable oxygen concentrator eCW1 ([facility]) Portable oxygen concentrator UNK 10/28/2019 12:00:00 AM EDT active Portable oxygen concentrator eCW1 ([facility]) Portable oxygen concentrator UNK 10/28/2019 12:00:00 AM EDT active Portable oxygen concentrator eCW1 ([facility]) Portable oxygen concentrator UNK 10/28/2019 12:00:00 AM EDT active Portable oxygen concentrator eCW1 ([facility]) Portable oxygen concentrator UNK 10/28/2019 12:00:00 AM EDT active Portable oxygen concentrator eCW1 ([facility]) Portable oxygen concentrator UNK 10/28/2019 12:00:00 AM EDT active Portable oxygen concentrator eCW1 ([facility]) Portable oxygen concentrator UNK 10/28/2019 12:00:00 AM EDT active Portable oxygen concentrator eCW1 ([facility]) Portable oxygen concentrator UNK 10/28/2019 12:00:00 AM EDT active Portable oxygen concentrator eCW1 ([facility]) Portable oxygen concentrator UNK 10/28/2019 12:00:00 AM EDT active Portable oxygen concentrator eCW1 ([facility]) Portable oxygen concentrator UN 10/28/2019 12:00:00 AM EDT active Portable oxygen concentrator eCW1 ([facility]) Portable oxygen concentrator [facility] 10/28/2019 12:00:00 AM EDT active Portable oxygen concentrator eCW1 ([facility]) Furosemide 20 MG Oral Tablet Furosemide* Furosemide* 06:15:00 PM EDT 20 MG ORAL completed [facility] Furosemide 20 MG Oral Tablet Furosemide* Furosemide* 06:15:00 PM EDT [address] [facility] 24 HR Diltiazem Hydrochloride 180 MG Ext ended Release Oral Capsule Diltiazem Cd* Diltiazem Cd* 10/15/2019 06:15:00 PM EDT 180 [facility] [place] [facility] Diltiazem Hydrochloride 180 MG Ext ended Release Oral Capsule Diltiazem Cd* Diltiazem Cd* 10/15/2019 06:15:00 PM EDT 180 [facility] [place] 24 HR Diltiazem Hydrochloride 180 MG Ext ended Release Oral Capsule Diltiazem Cd* Diltiazem Cd* 10/15/2019 06:15:00 PM EDT 180 MG [facility] Furosemide 20 MG Oral Tablet Furosemide* Furosemide* 06:15:00 PM EDT [address] [facility] 24 HR Diltiazem Hydrochloride 180 MG Ext ended Release Oral Capsule Diltiazem Cd* Diltiazem Cd* 10/15/2019 06:15:00 PM EDT 180 MG ORAL ac [facility] Furosemide 20 MG Oral Tablet Furosemide* Furosemide* 06:15:00 PM EDT [address] [facility] Furosemide 20 MG Oral Tablet Furosemide* Furosemide* 06:15:00 PM EDT 20 MG ORAL [facility] 24 HR Diltiazem Hydrochloride 180 MG Ext ended Release Oral Capsule Diltiazem Cd* Diltiazem Cd* 10/15/2019 06:15:00 PM EDT 180 MG [facility] [place] Furosemide 20 MG Oral Tablet Furosemide* Furosemide* 06:15:00 PM EDT 20 MG ORAL active [facility] 24 HR Diltiazem Hydrochloride 180 MG Ext ended Release Oral Capsule Diltiazem Cd* Diltiazem Cd* 10/15/2019 06:15:00 PM EDT 180 MG ORAL ac tive [facility] rivaroxaban 20 MG Oral Tablet Rivaroxaban* Rivaroxaban* 10/15/2019 06:13:00 PM EDT 20 MG ORAL active [facility] rivaroxaban 20 MG Oral Tablet Rivaroxaban* Rivaroxaban* 10/15/2019 06:13:00 PM EDT 20 MG ORAL active [facility] rivaroxaban 20 MG Oral Tablet Rivaroxaban* Rivaroxaban* 10/15/2019 06:13:00 PM EDT 20 MG ORAL active [facility] rivaroxaban 20 MG Oral Tablet Rivaroxaban* Rivaroxaban* 10/15/2019 06:13:00 PM EDT 20 MG ORAL active [facility] Lisinopril* Lisinopril* 10/15/2019 06:13:00 PM EDT 10 MG ORAL active [facility] rivaroxaban 20 MG Oral Tablet Rivaroxaban* Rivaroxaban* 10/15/2019 06:13:00 PM EDT 20 MG ORAL active [facility] rivaroxaban 20 MG Oral Tablet Rivaroxaban* Rivaroxaban* 10/15/2019 06:13:00 PM EDT 20 MG ORAL active [facility] carvedilol 6.25 MG Oral Tablet Carvedilol* Carvedilol* 10/15/2019 06:11:00 PM EDT 6.25 MG ORAL active [facility] carvedilol 6.25 MG Oral Tablet Carvedilol* Carvedilol* 10/15/2019 06:11:00 PM EDT 6.25 MG ORAL active [facility] carvedilol 6.25 MG Oral Tablet Carvedilol* Carvedilol* 10/15/2019 06:11:00 PM EDT 6.25 MG ORAL active [facility] carvedilol 6.25 MG Oral Tablet Carvedilol* Carvedilol* 10/15/2019 06:11:00 PM EDT 6.25 MG ORAL active [facility] carvedilol 6.25 MG Oral Tablet Carvedilol* Carvedilol* 10/15/2019 06:11:00 PM EDT 6.25 MG ORAL [facility] 6.25 MG Oral Tablet Carvedilol* Carvedilol* 10/15/2019 06:11:00 PM EDT 6.25 MG ORAL active [facility] Furosemide 20 MG Oral Tablet Furosemide 08/30/2019 12:00:00 AM EDT ORAL active [facility] ([facility] 25 mg 08/18/2019 12:00:00 AM EDT tablet [...] 12:00:00 AM EDT active as directed eCW1 ([facility]) Furosemide 40 MG Oral Tablet Furosemide 40 MG 07/23/2019 12:00:00 AM E DT active 1 tablet eCW1 ([facility]) 40 mg 05/21/2019 12:00:00 AM EST tablet [...] 00 AM EDT 100 MG ORAL completed [facility] Atenolol 50 MG Oral Tablet Atenolol* Atenolol* 01/15/2012 07:21: 00 AM EDT 100 MG ORAL completed [facility] Atenolol 50 MG Oral Tablet Atenolol* Atenolol* 01/15/2012 07:21: 00 AM EDT 100 MG ORAL completed [facility] Atenolol 50 MG Oral Tablet Atenolol* Atenolol* 01/15/2012 07:21: 00 AM EDT 100 MG ORAL completed [facility] Atenolol 50 MG Oral Tablet Atenolol* Atenolol* 01/15/2012 07:21: 00 AM EDT 100 MG ORAL completed [facility] Atenolol 50 MG Oral Tablet Atenolol* Atenolol* 01/15/2012 07:21: 00 AM EDT 100 MG ORAL completed [facility] Amlodipine 10 MG Oral Tablet amLODIPine (NORVASC) 10 M G tablet amLODIPine (NORVASC) 10 MG tablet 5 mg Oral aborted T tricia [address] [facility] Atenolol 100 MG Oral Tablet atenolol (TENORMIN) 100 MG tablet atenolol (TENORMIN) 100 MG tablet 100 mg Oral aborted Take 100 [address] [facility] Enalapril Maleate 20 MG Oral Tablet enalapril (VASOTEC ) 20 MG tablet enalapril (VASOTEC) 20 MG tablet 20 mg Oral aborted Take 20 mg by mouth 2 (two) times a day [facility] Ranitidine 150 MG Oral Capsule ranitidine (ZANTAC) 150 MG capsule ranitidine (ZANTAC) 150 MG capsule 150 mg Oral aborted Take 150 mg by mouth 2 (two) times a day [facility] Hydrochlorothiazide 25 MG Oral Tablet hy drochlorothiazide (HYDRODIURIL) 25 MG tablet hydrochlorothiazide (HYDRODIURIL) 25 MG tablet 25 mg O ral aborted Take 25 mg by mouth daily [facility] Insurance Providers Payer name Policy type / Coverage type Policy ID Covered green party ID Covered green party's relationship to olvera Policy Olvera Plan Information MEDICARE [id number] SP [id number] EMEDNY [id number] SP [id number] [facility] OPTIONS [id number] SP [id number] [facility] [id number] S [id number] [place] [id number] S [id number] MEDICAID [id number] S [id number] [facility] OPTIONS [id number] S [id number] [place] [employer] [id number] S [id number] [place] [id number] S [id number] MEDICAID [id number] S [id number] [place] [employer] [facility] [id number] S [id number] [place] [id number] S [id number] MEDICAID [id number] S [id number] [place] [facility] [id number] S [id number] [place] [id number] S [id number] MEDICAID [id number] S [id number] MEDICAID [id number] Mireya [id number] [facility] [id number] Mireya [id number] MEDICARE [id number] Mireya [id number] [facility] OPTIONS [id number] S [id number] MEDICARE [id number] S [id number] MEDICAID [id number] S [id number] [facility]IC[facility] [id number] S [id number] MEDICAID [id number] [facility] [id number] MEDICARE [id number] MEDICAID M [id number] S [id number] AARP O [id number] S [id number] MEDICARE C [id number] S [id number] [facility] OPTIONS UNAVAILABLE UNAVAILABLE MEDICAID [id number] S [id number] [place] [facility] [id number] S [id number] O UNAVAILABLE [facility]A [facility] [id number] SP [id number] MEDICAID [id number] P [id number] MEDICARE B [id number] P [id number] MEDICARE A [id number] P [id number] [facility]ARP [id number] P [id number] MEDICAID [id number] P [id number] MEDICAID [id number] S [id number] MEDICAID [id number] Self [id number] COMMERCIAL GENERIC [id number] Self [id number] MEDICARE [id number] Self [id number] [facility] [facility] OPTIONS [id number] S [id number] ANSI-Commercial [id number] ANSI-Medicaid [id number] ANSI-Commercial [id number] ANSI-Medicare Part B [id number] MEDICAID [id number] ANSI-Medicaid [id number] ANSI-Commercial [id number] ANSI-Commercial [id number] ANSI-Medicare Part B [id number] MEDICAID [id number] [facility] [id number] COMMERCIAL GENERIC [id number] Mireya [id number] MEDICARE [id number] Mireya [id number] ANSI-Commercial [id number] ANSI-Medicaid [id number] ANSI-Commercial [id number] ANSI-Medicare Part B [id number] ANSI-Medicare Part B [id number] ANSI-Commercial [id number] [facility] [id number] ANSI-Commercial [id number] MEDICARE B [id number] P [id number] MEDICAID [id number] P [id number] ANSI-[facility] [id number] [facility] [id number] ANSI-Commercial [id number] [facility] 6Medicare Part B [id number] ANSI-Commercial [id number] [facility] [id number] ANSI-Commercial [id number] ANSI-Medicare Part B [id number] ANSI-Medicare Part B [id number] ANSI-Commercial [id number] ANSI-Commercial [id number] ANSI-Medicaid [id number] ANSI-Medicare Part B [id number] ANSI-Commercial [id number] ANSI-Medicaid [id number] ANSI-Commercial [id number] [facility] MEDICARE DIVISION [id number] S [id number] [place]ICARE [place] [id number] S [id number] [facility] OPTIONS [id number] S [id number] ANSI-Medicaid [id number] ANSI-Medicare Part B [id number] ANSI-Commercial [id number] ANSI-Commercial [id number] ANSI-Commercial [id number] ANSI-Medicare Part B [id number] ANSI-Medicaid [id number] ANSI-Commercial [id number] MEDICARE A [id number] P [id number] MEDICAID [id number] P [id number] ASSIGNED MEDICARE (81) [id number] MEDICAID (101) [id number] [facility] [id number] ASSIGNED MEDICARE (81) [id number] MEDICAID [id number] S [id number] [place] MED[place]ARE DIVISION [id number] S [id number] [place] [id number] S [id number] [facility] Options Medigap Part B Self Medicare [facility] Medicare Primary Self [employer]ARP HE[employer] CARE OPTIONS [id number] Patient [id number] MEDICARE PART A [id number] Patient [id number] [facility] Self Medicare [place] Self [facility] HE[facility] INS PLAN [id number] SELF [id number] MEDICARE [id number] SELF [id number] A [id number] A [id number] Problems, Conditions, and Diagnoses Code Display Name Description Problem Type Effective Dates Data Source(s) E10.9 492848822 Diabetes mellitus type 1, contro lled, without complications Problem 04/18/2020 12:00:00 AM EST eCW1 ([facility]) I48.91 Atrial fibrillation Atrial fibrillation [id number] 03/23/2020 12:00:00 AM [facility] R60.9 Edema Edema [id number] 03/23/2020 12:00:[address] [facility] K21.9 GERD (gastroesophageal reflux disease) G ERD (gastroesophageal reflux disease) 28203926 03/23/2020 12:00:00 AM [facility] E11.9 Type 2 diabetes mellitus Type 2 diabetes mellitus 6457 200003/23/2020 12:00:00 AM [facility] E78.5 HLD (hyperlipidemia) HLD (hyperlipidemia) 14080327 03/23/2020 12:00:00 AM [facility] I10 HTN (hypertension) HTN (hypertension) 22019402 12:00:00 AM [facility] Z99.81 [id number] Supplemental oxygen dependent Problem 02/15/2020 12:00:00 AM EST eCW1 ([facility] [place][note 3]) D50.9 [id number] Microcytic anemia Problem 01/24/2020 12:00:0 0 AM EST eCW1 [place] [place] [facility] [place] J43.1 1366822 Panlobular emphysema Problem 11/10/2019 12:0 0:00 AM EDT eCW1 [place] [place] [facility] [place] [id number] Peripheral vascular disease Peripheral vascular diseas e Problem 11/05/2019 12:00:00 AM EDT MEDENT ([facility]. ) 155997597 Gastroesophageal reflux disease Gastroesophageal reflux disease Problem 11/05/2019 12:00:00 AM EDT MEDENT ([facility] 195848659 Paroxysmal atrial fibrillation Paroxysmal atrial fibri llation Problem 11/05/2019 12:00:00 AM EDT MEDENT ([facility]. 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. 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 Problem 08/06/2019 12:00:00 AM EDT eCW1 ([facility]) J30.2 292439603 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, 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 Problem 08/06/2019 12:00:00 AM EDT eCW1 ([facility]) E10.9 Type 1 diabetes mellitus without complic ations TYPE 1 DIABETES MELLITUS WITHOUT COMPLIC Diagnosis 04/18/2020 11:13:00 AM EST [facility] Z99.81 Dependence on supplemental oxygen DEPENDENCE ON SUPPLEMENTAL OXYGEN Diagnosis 04/17/2020 09:39:00 AM [facility] L89.629 Pressure ulcer of left heel, unspecified stage PRESSURE ULCER OF LEFT HEEL, UNSPECIFIED STAGE Diagnosis 04/17/2020 09:39:00 AM [facility] L89.619 Pressure ulcer of right heel, unspecifie d stage PRESSURE ULCER OF RIGHT HEEL, UNSPECIFIED STAGE Diagnosis 04/17/2020 09:39:00 AM [facility] R60.0 Localized edema LOCALIZED EDEMA Diagnosis 04/17/2020 09:3 9:00 AM [facility] E11.9 Type 2 diabetes mellitus without complic ations TYPE 2 DIABETES MELLITUS WITHOUT COMPLICATIONS Diagnosis 04/17/2020 09:39:00 AM [facility] I50.812 CHRONIC RIGHT HEART FAILURE CHRONIC RIGHT HEART FAILUR E Diagnosis 04/17/2020 09:39:00 AM [facility] I11.0 Hypertensive heart disease with heart fa ilure HYPERTENSIVE HEART DISEASE WITH HEART FAILURE Diagnosis 04/17/2020 09:39:00 AM [facility] R60.9 Edema, unspecified Edema, unspecified Diagnosis 09:17:50 AM [facility] K21.9 Gastro-esophageal reflux disease without esophagitis Gastro-esophageal reflux disease without Diagnosis 04/13/2020 09:17:50 AM [facility] E11.9 Type 2 diabetes mellitus without complic ations Type 2 diabetes mellitus without complic Diagnosis 04/13/2020 09:17:50 AM [facility] I10 Essential (primary) hypertension Essential (primary) h ypertension Diagnosis 04/13/2020 09:17:50 AM [facility] I48.91 Unspecified atrial fibrillation Unspecified atri al fibrillation Diagnosis 04/13/2020 09:17:50 AM [facility] E78.5 Hyperlipidemia, unspecified Hyperlipidemia, unspecifie d Diagnosis 04/13/2020 09:17:50 AM [facility] R06.02 Shortness of breath SHORTNESS OF BREATH Diagnosis 0 04/13/2020 09:17:00 AM [facility] I10 Essential (primary) hypertension ESSENTIAL (PRIMARY) H YPERTENSION Diagnosis 03/29/2020 08:00:00 AM [facility] R06.02 Shortness of breath Shortness of breath Diagnosis 0 03/23/2020 09:39:52 AM [facility] Z28.21 Immunization not carried out because of patient refusal IMMUNIZATION NOT CARRIED OUT BECAUSE OF PATIENT RE Diagnosis 02/15/2020 08:41:00 AM [facility] D50.9 Iron deficiency anemia, unspecified IRON DEFICIE NCY ANEMIA, UNSPECIFIED Diagnosis 01/24/2020 03:07:00 PM [facility] 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 ALF (CU RRENT) USE OF ASPIRIN Diagnosis 01/22/2020 04:20:00 PM [facility] Z87.19 Personal history of other diseases of th e digestive system PERSONAL HISTORY OF OTHER DISEASES OF THE DIGESTIV Diagnosis 01/22/2020 04:20:0 0 PM [facility] Z90.49 Acquired absence of other specified part s of digestive tract ACQUIRED ABSENCE OF OTHER SPECIFIED PARTS OF DIGES Diagnosis 01/22/2020 04:20:0 0 [facility] Z85.3 Personal history of malignant neoplasm o f breast PERSONAL HISTORY OF MALIGNANT NEOPLASM OF BREAST Diagnosis 01/22/2020 04:20:00 PM [facility] Z85.038 Personal history of other malignant neop lasm of large intestine PERSONAL HISTORY OF MALIGNANT NEOPLASM OF LARGE IN Diagnosis 01/22/2020 04:20: 00 PM [facility] I27.20 PULMONARY HYPERTENSION, UNSPECIFIED PULMONARY HY PERTENSION, UNSPECIFIED Diagnosis 01/22/2020 04:20:00 PM [facility] I35.0 Nonrheumatic aortic (valve) stenosis NONRHEUMATI C AORTIC (VALVE) STENOSIS Diagnosis 01/22/2020 04:20:00 PM [facility] E78.5 Hyperlipidemia, unspecified HYPERLIPIDEMIA, UNSPECIFIE D Diagnosis 01/22/2020 04:20:00 PM [facility] I48.91 Unspecified atrial fibrillation UNSPECIFIED ATRI AL FIBRILLATION Diagnosis 01/22/2020 04:20:00 PM [facility] I89.0 Lymphedema, not elsewhere classified LYMPHEDEMA, NOT ELSEWHERE CLASSIFIED Diagnosis 01/22/2020 04:20:00 PM [facility] I50.9 Heart failure, unspecified HEART FAILURE, UNSPECIFIED Diagnosis 01/22/2020 04:20:00 PM [facility] R06.00 Dyspnea, unspecified DYSPNEA, UNSPECIFIED Diagnosis 01/22/2020 04:20:00 PM [facility] R53.1 Weakness WEAKNESS Diagnosis 01/22/2020 04:20:00 PM [facility] Z87.891 Personal history of nicotine dependence PERSONAL HISTORY OF NICOTINE DEPENDENCE Diagnosis 01/21/2020 05:57:00 PM [facility] Z85.828 Personal history of other malignant neop lasm of skin PERSONAL HISTORY OF OTHER MALIGNANT NEOPLASM OF SK Diagnosis 01/21/2020 05:57:00 PM [facility] Z20.828 Contact with and (suspected) exposure to other viral communicable diseases CONTACT W AND EXPOSURE TO OTH VIRAL COMMUNICABLE D Diagnosis 01/21/2020 05:57:00 PM [facility] E11.65 Type 2 diabetes mellitus with hyperglyce austen TYPE 2 DIABETES MELLITUS WITH HYPERGLYCEMIA Diagnosis 01/21/2020 05:57:00 PM [facility] M79.606 Pain in leg, unspecified PAIN IN LEG, UNSPECIFIED Diag nosis 01/21/2020 05:57:00 PM [facility] M79.89 Other specified soft tissue disorders OT HER SPECIFIED SOFT TISSUE DISORDERS Diagnosis 01/21/2020 02:34:00 PM [facility] R06.02 Shortness of breath SHORTNESS OF BREATH Diagnosis 1 03/22/2019 02:34:00 PM [facility] Z79.899 Other intermediate frame tender (current) drug therapy O THER BENCH HAND MACHINE (CURRENT) DRUG THERAPY Diagnosis 12/09/2019 04:40:00 PM [facility] Z79.51 halfway (current) use of inhaled stero ids BENCH HAND MACHINE (CURRENT) USE OF INHALED STEROIDS Diagnosis 12/09/2019 04:40:00 PM [facility] Z79.84 ALF (CURRENT) USE OF ORAL HYPOGLYC EMIC DRUGS ALF (CURRENT) USE OF ORAL HYPOGLYCEMIC DRUGS Diagnosis 12/09/2019 04:40:00 PM [facility] E78.00 PURE HYPERCHOLESTEROLEMIA, UNSPECIFIED P URE HYPERCHOLESTEROLEMIA, UNSPECIFIED Diagnosis 12/09/2019 04:40:00 PM [facility] E87.6 Hypokalemia HYPOKALEMIA Diagnosis 12/09/2019 04:40:00 PM [facility] D64.9 Anemia, unspecified ANEMIA, UNSPECIFIED Diagnosis 0 12/09/2019 04:40:00 PM T [facility] F17.210 Nicotine dependence, cigarettes, uncompl icated NICOTINE DEPENDENCE, CIGARETTES, UNCOMPLICATED Diagnosis 12/09/2019 04:40:00 PM EDT [facility] J44.9 Chronic obstructive pulmonary disease, u nspecified CHRONIC OBSTRUCTIVE PULMONARY DISEASE, UNSPECIFIED Diagnosis 12/09/2019 04:40:00 PM EDT [facility] 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 SQUAMOUS CELL CARCINOMA SKIN/ LEFT EAR AND EXTRN AURIC CANAL Diagnosis 12/02/2019 01:46:00 PM EDT [facility] L98.0 Pyogenic granuloma PYOGENIC GRANULOMA Diagnosis 12/2019 09:30:00 AM [facility] Z85.3 Personal history of malignant neoplasm o f breast PERSONAL HISTORY OF MALIGNANT NEOPLASM OF BREAST Diagnosis 11/08/2019 12:17:00 AM EDT [facility] Z85.038 Personal history of other malignant neop lasm of large intestine PERSONAL HISTORY OF MALIGNANT NEOPLASM OF LARGE INTESTINE Diagnosis 10/16 12:17:00 AM EDT [facility] Z87.891 Personal history of nicotine dependence PERSONAL HISTORY OF NICOTINE DEPENDENCE Diagnosis 11/08/2019 12:17:00 AM EDT [facility] Z79.899 Other [place] [facility] ([facility] drug therapy O THER ALF (CURRENT) DRUG THERAPY Diagnosis 11/08/2019 12:17:00 AM EDT [facility] F03.90 Unspecified dementia without behavioral disturbance UNSPECIFIED DEMENTIA WITHOUT BEHAVIORAL DISTURBANCE Diagnosis 11/08/2019 12:17:00 AM EDT [facility] R11.2 Nausea with vomiting, unspecified NAUSEA WITH VO MITING, UNSPECIFIED Diagnosis 11/08/2019 12:17:00 AM EDT [facility] R82.71 BACTERIURIA BACTERIURIA Diagnosis 11/08/2019 12:17:00 AM EDT [facility] D72.829 Elevated white blood cell count, unspeci fied ELEVATED WHITE BLOOD CELL COUNT, UNSPECIFIED Diagnosis 11/08/2019 12:17:00 AM EDT [facility] E78.5 Hyperlipidemia, unspecified HYPERLIPIDEMIA, UNSPECIFIE D Diagnosis 11/08/2019 12:17:00 AM T [facility] E87.70 Fluid overload, unspecified FLUID OVERLOAD, UNSPECIFIE D Diagnosis 11/08/2019 12:17:00 AM EDT [facility] E11.65 Type 2 diabetes mellitus with hyperglyce austen TYPE 2 DIABETES MELLITUS WITH HYPERGLYCEMIA Diagnosis 11/08/2019 12:17:00 AM T [facility] E87.6 Hypokalemia HYPOKALEMIA Diagnosis 11/08/2019 12:17:00 AM [facility] K59.00 Constipation, unspecified CONSTIPATION, UNSPECIFIED Di agnosis 11/08/2019 12:17:00 AM T [facility] K52.9 Noninfective gastroenteritis and colitis , unspecified NONINFECTIVE GASTROENTERITIS AND COLITIS, UNSPECIFIED Diagnosis 11/08/2019 12:17:00 AM T [facility] I50.812 CHRONIC RIGHT HEART FAILURE CHRONIC RIGHT HEART FAILUR E Diagnosis 11/08/2019 12:17:00 AM [facility] 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 CHRONIC COMBINED SYSTOLIC AND DIASTOLIC HRT FAIL Diagnosis 11/08/2019 12:17:00 AM T [facility] I48.20 CHRONIC ATRIAL FIBRILLATION, UNSPECIFIED CHRONIC ATRIAL FIBRILLATION, UNSPECIFIED Diagnosis 11/08/2019 12:17:00 AM [facility] J44.1 Chronic obstructive pulmonary disease wi th (acute) exacerbation CHRONIC OBSTRUCTIVE PULMONARY DISEASE W (ACUTE) EXACERBATION Diagnosis 0 11/08/2019 12:17:00 AM [facility] J18.9 Pneumonia, unspecified organism PNEUMONIA, UNSPECIFIED ORGANISM Diagnosis 11/08/2019 12:17:00 AM [facility] J96.01 Acute respiratory failure with hypoxia A CUTE RESPIRATORY FAILURE WITH HYPOXIA Diagnosis 11/08/2019 12:17:00 AM T [facility] R65.20 Severe sepsis without septic shock SEVERE SEPSIS WITHOUT SEPTIC SHOCK Diagnosis 11/08/2019 12:17:00 AM [facility] A41.9 Sepsis, unspecified organism SEPSIS, UNSPECIFIED ORGAN ISM Diagnosis 11/08/2019 12:17:00 AM [facility] R91.1 Solitary pulmonary nodule SOLITARY PULMONARY NODULE Di agnosis 10/28/2019 07:37:00 AM [facility] J98.11 Atelectasis ATELECTASIS Diagnosis 10/28/2019 07:37:00 AM [facility] J91.8 Pleural effusion in other conditions cla ssified elsewhere PLEURAL EFFUSION IN OTHER CONDITIONS CLASSIFIED EL Diagnosis 10/28/2019 07:37:00 AM [facility] 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 OTHER RESTRICTI VE CARDIOMYOPATHY Diagnosis 10/28/2019 07:37:00 AM [facility] R60.9 Edema, unspecified EDEMA, UNSPECIFIED Diagnosis 07:37:00 AM [facility] Z20.828 Contact with and (suspected) exposure to other viral communicable diseases CONTACT W AND EXPOSURE TO OTH VIRAL COMMUNICABLE DISEASES Di agnosis 10/14/2019 09:45:00 PM EDT [facility] 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 ACQUIRED ABSENCE OF OTHER SPECIFIED PARTS OF DIGESTIVE TRACT Diagnosis 09:45:00 PM EDT [facility] Z79.01 halfway (current) use of anticoagulant s ALF (CURRENT) USE OF ANTICOAGULANTS Diagnosis 10/14/2019 09:45:00 PM EDT [facility] I27.81 Cor pulmonale (chronic) COR PULMONALE (CHRONIC) Diagno sis 10/14/2019 09:45:00 PM EDT [facility] E11.9 Type 2 diabetes mellitus without complic ations TYPE 2 DIABETES MELLITUS WITHOUT COMPLICATIONS Diagnosis 10/14/2019 09:45:00 PM EDT [facility] I11.0 Hypertensive heart disease with heart fa ilure HYPERTENSIVE HEART DISEASE WITH HEART FAILURE Diagnosis 10/14/2019 09:45:00 PM EDT [facility] I50.23 Acute on chronic systolic (congestive) h eart failure ACUTE ON CHRONIC SYSTOLIC (CONGESTIVE) HEART FAILURE Diagnosis 10/14/2019 09:45:00 PM E DT [facility] I48.91 Unspecified atrial fibrillation UNSPECIFIED ATRI AL FIBRILLATION Diagnosis 10/14/2019 09:45:00 PM EDT [facility] I50.9 Heart failure, unspecified HEART FAILURE, UNSPECIFIED Diagnosis 10/14/2019 09:45:00 PM EDT [facility] R60.9 Edema, unspecified EDEMA, UNSPECIFIED Diagnosis 01:00:00 PM EDT [facility] E78.00 PURE HYPERCHOLESTEROLEMIA, UNSPECIFIED P URE HYPERCHOLESTEROLEMIA, UNSPECIFIED Diagnosis 09/07/2019 03:22:00 PM EDT [facility] I10 Essential (primary) hypertension ESSENTIAL (PRIMARY) H YPERTENSION Diagnosis 09/07/2019 03:22:00 PM EDT [facility] E61.1 Iron deficiency IRON DEFICIENCY Diagnosis 08/06/2019 09:4 1:00 AM [facility] Surgeries/Procedures Procedure Description Date Indications Data Source(s) POCT AMB EKG POCT AMB EKG Routine 03/23/2020 10:33 AM EST Atrial fibrillation, unspecified type 03/23/2020 03:33:00 PM EST Atrial fibrillation, unspecified type [facility] Atrial fibrillation, unspecified type Introduction of Anti-inflammatory into R espiratory Tract, Via Natural or Artificial Opening 01/22/2020 12:00:00 AM [facility] Drainage of Bladder with Drainage Device, Via Natural or Art ificial Opening 01/22/2020 12:00:00 AM [facility] Introduction of Insulin into Subcutaneous Tissue, Percutaneo us Approach 01/22/2020 12:00:00 AM [facility] Introduction of Other Therapeutic Substa nce into Peripheral Vein, Percutaneous Approach 01/22/2020 12:00:00 AM [facility] Muscle Performance Treatment of Musculoskeletal System - Who le Body 01/22/2020 12:00:00 AM [facility] Plain chest X-ray (procedure) 11/10/2019 12:00:00 AM E DT [facility] Plain chest X-ray (procedure) 11/10/2019 12:00:00 AM E [facility] Urine culture (procedure) 11/08/2019 12:00:[facility] 11/08/2019 [facility] Plain chest X-ray (procedure) 11/08/2019 12:00:00 AM E DT [facility] ELECTROCARDIOGRAM 11/08/2019 12:00:00 AM EDT [facility] Urine culture (procedure) 11/08/2019 12:00:00 AM EDT [facility] ELECTROCARDIOGRAM 11/08/2019 12:00:00 AM EDT [facility] Plain chest X-ray (procedure) 11/08/2019 12:00:00 AM E DT [facility] ELECTROCARDIOGRAM 11/08/2019 12:00:00 AM EDT [facility] INTRODUCE OTH THERAP SUBST IN PERIPH VEIN, PERC 2019 12:00:00 AM EDT [facility] Plain chest X-ray (procedure) 10/14/2019 12:00:00 AM E DT [facility] ECHOCARDIOGRAM 10/14/2019 12:00:00 AM EDT [facility] ELECTROCARDIOGRAM 10/14/2019 12:00:00 AM EDT [facility] INTRODUCE OTH THERAP SUBST IN PERIPH VEIN, PERC 2019 12:00:00 AM EDT [facility] Plain chest X-ray (procedure) 10/14/2019 12:00:00 AM E DT [facility] ECHOCARDIOGRAM 10/14/2019 12:00:00 AM EDT [facility] ELECTROCARDIOGRAM 10/14/2019 12:00:00 AM EDT [facility] Echocardiography, Profl,Tranthoracic, Realtime Image Documen tatio 10/14/2019 12:00:00 AM EDT [facility] INTRODUCE OTH THERAP SUBST IN PERIPH VEIN, PERC 2019 12:00:00 AM EDT [facility] Plain chest X-ray (procedure) 10/14/2019 12:00:00 AM E DT [facility] ECHOCARDIOGRAM 10/14/2019 12:00:00 AM EDT [facility] ELECTROCARDIOGRAM 10/14/2019 12:00:00 AM EDT [facility] INTRODUCE OTH THERAP SUBST IN PERIPH VEIN, PERC 2019 12:00:00 AM EDT [facility] Plain chest X-ray (procedure) 10/14/2019 12:00:00 AM E DT [facility] ECHOCARDIOGRAM 10/14/2019 12:00:00 AM EDT [facility] ELECTROCARDIOGRAM 10/14/2019 12:00:00 AM EDT [facility] INTRODUCE OTH THERAP SUBST IN PERIPH VEIN, PERC 2019 12:00:00 AM EDT [facility] Plain chest X-ray (procedure) 10/14/2019 12:00:00 AM E DT [facility] ECHOCARDIOGRAM 10/14/2019 12:00:00 AM EDT [facility] ELECTROCARDIOGRAM 10/14/2019 12:00:00 AM EDT [facility] Plain chest X-ray (procedure) 10/14/2019 12:00:00 AM E DT [facility] ECHOCARDIOGRAM 10/14/2019 12:00:00 AM EDT [facility] ELECTROCARDIOGRAM 10/14/2019 12:00:00 AM EDT [facility] Results ID Date Data Source [id number] 04/23/2020 11:03:00 AM EST [facility] Name Value Range Interpretation Code Description Data Karen rce(s) Supporting Document(s) SARS coronavirus 2 RNA [Presence] in Res piratory specimen by JEIMY with probe detection NEGATIVE [facility] This lab was ordered by [facility] a nd reported by [facility]. ID Date Data Source [id number] 04/18/2020 01:16:00 PM EST [facility] Name Value Range Interpretation Code Description Data Karen rce(s) Supporting Document(s) GLUCOSE 372 mg/dL 74-106 H [facility] BLOOD UREA NITROGEN 30 mg/dL 7-18 H [facility] ital CREATININE 0.99 mg/dL 0.6-1.0 [facility] SODIUM 139 mmol/L 136-145 [facility] POTASSIUM 3.8 mmol/L 3.5-5.1 [facility] CHLORIDE 96 mmol/L 98-107 L [facility] CO2 39 mmol/L 21-32 H [facility] CALCIUM 9.7 mg/dL 8.5-10.1 [facility] ANION GAP 4.0 mmol/L 5-12 L [facility] GLOMERULAR FILTRATION RATE 53 mL/min [facility] GFR IS CALCULATED IN mL/min/1.73m2 VALENCIA L FUNCTION: >90MILDLY DECREASED: 60-89MILDY TO MODERATELY DECREASED: 45-59 MODERATELY TO SEVERELY DECREASED: 30-44SEVERELY DECREASED: 15-29RENAL FAILURE: <15 AST 12 U/L 15-37 L [facility] ALT 24 U/L 12-78 [facility] ALKALINE PHOSPHATASE 111 U/L 46-116 [facility] pital TOTAL BILIRUBIN 0.6 mg/dL 0.2-1.0 [facility] TOTAL PROTEIN 7.0 g/dl 6.4-8.2 [facility] ALBUMIN 3.2 gm/dL 3.4-5.0 [facility] ID Date Data Source [id number] 04/18/2020 12:56:00 PM [facility] Name Value Range Interpretation Code Description Data Karen rce(s) Supporting Document(s) HGBA1C 11.6 % 3.8-5.6 [facility] Diabetic > or = to 6.5%Prediabetes 5.7-6 .4%Normal <5.7 ESTIMATED AVERAGE GLUCOSE 286.2 mg/dL [facility] ID Date Data Source [id number] 04/18/2020 12:00:00 AM EST eCW1 ([facility]) Name Value Range Interpretation Code Description Data Karen rce(s) Supporting Document(s) Hemoglobin A1c/Hemoglobin.total in Blood by HPLC 6.5 4.5-6.2 HA1C eCW1 ([facility] [place] 6.5 4.5-6.2 HGBA1C eCW1 ([facility] [place] 286.2 ESTIMATED AVERAGE GLUCOSE eCW1 ([facility] [place] Hemoglobin A1c/Hemoglobin.total in Blood 11.6 3.8-5.6 HGBA1C eCW1 ([facility] [place] ID Date Data Source [id number] 04/13/2020 11:30:00 AM [facility] Name Value Range Interpretation Code Description Data Karen rce(s) Supporting Document(s) B-Type Natriuretic Peptide BNP <450 Above high normal [facility] Results of this test should always be us ed in conjunction with the patients medical history, clinical presentation, and other findings. ID Date Data Source [id number] 04/13/2020 11:00:00 AM [facility] Name Value Range Interpretation Code Description Data Karen rce(s) Supporting Document(s) Sodium 140 mmol/L 136-145 Normal (applies to non-numeric resul ts) [facility] Potassium 3.5-5.1 Normal (applies to non-numeric resul ts) [facility] Chloride 100 mmol/L 98-107 Normal (applies to non-numeric resul ts) [facility] Carbon Dioxide CO2 21-32 Normal (applies to non-numer ic results) [facility] Anion Gap 5.0-16.0 Normal (applies to non-numeric resul ts) [facility] BUN 26 mg/dL 7-18 Above high normal [facility] ospital Creatinine,Serum 0.7-1.2 Normal (applies to non-numeric results) [facility] GFR >60 Normal (applies to non-numeric results) [facility] Glucose Level 312 mg/dL 60-99 Above high normal [facility] Reference range is only applicable when patient is fasting Note the following drug interference: Sulfasalazine Sulfapyridine Can see falsely depressed Can see falsely elevated result with up to 17% results with up to 11% decrease in measurement increase in measurement Recommend patients be collected for this test prior to administration of either drug. Calcium 8.5-10.1 Below low normal [facility] spital ID Date Data Source [id number] 02/09/2020 11:37:00 AM [facility] Patient: OSKAR DUGAN Observation Report - [facility].VisitID: [id number] [place] [address] [phone], FRegistration Date/Time: 01/21/2020 15:37 Weight:61.6 kg (M). [...] UA CULTURE IF INDICATED: (DEXTER: 01/21/2020 17:45)( [facility] 01/21/2020 17:51) New Order URINE SOURCE? URINE, CLEAN CATCHTSYSORDER [id number] Test Result Flag Units (Reference)URINE COLOR. YELLOW [...] NEGATIVE (NEGATIVE) COVID-19 IN-HOUSE: (DEXTER: 01/21/2020 16:43)( [facility] 01/21/2020 17:04) New O rder TSYSORDER [id number] Test Result Flag Units (Reference)COVID-19 NEGATIVE (NEGATIVE) [...] are for the indentification of SARS-CoV-2 RNA. WdqLPGE-CnV-0 RNA is generally detectable in respiratorysamples during the actue phase of infection. CBC w Diff: (DEXTER: 01/21/2020 16:05)( [facility] 01/21/2020 16:23) New Order TSYSORDER [id number] Test Result Flag Units (Reference)WHITE BLOOD COUNT [...] RATE 42 mL/min GFR IS CALCULATED IN mL/min/1.15p7CEIMXY FUNCTION: >90MILDLY DECREASED: 60-89MILDY TO MODERATELY DECREASED: [...] 12/09/2019 -- -- FINDINGS: -- Newly developed uqno-dx-rcrxannu cardiomegaly with no pulmonary venous hypertension is noted. Lungs are clear and well- expanded. Moderate COPD is unchanged. Small bilateral effusions are appreciated. -- -- IMPRESSION: -- Newly developed fyxi-fd-ulipcdax cardiomegaly without PVH and small bilateral -- effusions. -- Numerous left-sided meeta -- Electronically signed in PS360 by: Lindsay Mir M.D. 01/21/2020 17:01 EST -- -- Dictated by: LINDSAY IMR . PROGRESS AND PROCEDURESCourse of Care: 09:52 [...] is not AC. Will obtain records from [facility] from [facility] hospitalization - She may require full admission if no significant improvement by tomorrow for decompensated CHF. her OP Sheriffs Detective is CLAUDE Leslie. 1613patient re-evaluated and still [...] IV lasix and PT. We spoke to [facility] Nursing supervisor winter and awaiting her most recent Echo and [...] of CHFDyspneaA Fib rate controlled but not udtfchsthjacakRS4SYC. (Electronically signed by Higinio Black MD 01/24/2020 13:11) Weight:61.6 kg (M). Height/Length:60 inches (S). BMI:26.5 Obs Start: 01/21/2020 19:08 Obs Dispo: 01/22/2020 16:13 Obs Duration: 21 hr 11 min FAMILY HISTORYFather: Hypertension. (Electronically signed by Jodie Eaton P.A. 01/21/2020 18:06) Addenda for OSKAR DUGAN VisitID: [id number] Date: 01/21/2020 02/09/2020 11:34chart review, updated follow up form(Electronically signed by Camila Jiang R.N. - 02/09/2020 11:34) Name Value Range Interpretation Code Description Data Karen rce(s) Supporting Document(s) ID Date Data Source [id number] 01/25/2020 11:24:00 AM [facility] Summary of HospitalizationReason for Ad missionINCREASED WEAKNESS/LEG SWELLING AND DYSPNEA [facility] Pks[facility]wk89 [facility] female that presented through the ED [...] and reviewed recent notes from hospitalization at [facility] in Dec 2019. She had an UGI [...] I spoke to her Cardiology group at [facility] Cardiology.They confirmed the current regime n we have her on with exception to AC.Her [id number] Score for Atrial Fibrillation Stroke Risk 6 [...] New Order URINE SOURCE? URINE, CLEAN CATCHTSYSORDER [id number] Test Result Flag Units (Reference) URINE COLOR. [...] ( MsgRcvd 01/21/2020 17:04) New Order TSYSORDER [id number] Test Result Flag Units (Reference) COVID-19 NEGATIVE [...] are for the indentification of SARS-CoV-2 RNA. SioQIMS-SgL-5 RNA is generally detectable in respiratorysamples during the actue phase of infection. CBC w Diff: (DEXTER: 01/21/2020 16:05) ( MsgRcvd 01/21/2020 16:23) New Order TSYSORDER [id number] Test Result Flag Units (Reference) WHITE BLOOD [...] PT with INR: (DEXTER: 01/21/2020 16:05) ( [facility] 01/21/2020 16:34) New Order Test Result Flag Units (Reference) PROTHROMBIN TIME (PATIENT) 10.4 SECONDS (9.1-11.6) INR 1.00 (0.87-1.06) PARTIAL THROMBOPLASTIN TIME 21.7 SECONDS (21.2-27.3) Troponin-I: (DEXTER: 01/21/2020 16:05) ( [facility] 01/21/2020 17:06) New Order Test Result Flag Units (Reference) GLUCOSE 397 *H mg/dL (74-106) BLOOD UREA NITROGEN 41 *H mg/dL (7-18) CREATININE 1.2 H mg/dL (0.6-1.0) SODIUM 136 mmol/L (136-145) POTASSIUM 4.0 mmol/L (3.5-5.1) CHLORIDE 95 L mmol/L (98- 107) CO2 32 mmol/L (21-32) CALCIUM 9.1 mg/dL (8.5-10.1) ANION GAP 9.0 mmol/L (5-12) GLOMERULAR FILTRATION RATE 42 mL/min GFR IS CALCULATED IN mL/min/1.07x9UTYUAO FUNCTION: >90MILDLY DECREASED: 60-89MILDY TO MODERATELY DECREASED: [...] recommending home health nurse. Physical ExaminationOther:GEN: NAD, A&Hb3RIKDT: PERRLA, throat clear, no adenopathy/thyroidomegalyLUNGS: CTA BilaterallyHEART: Irreg IrregABDOMEN: soft, NT/ND, normoactive bowel sounds w/o reboundLOWER EXT: mild edema to anterior lower shins (much improved)SKIN: warm and intact NEURO: wildlife manager II-XII grossly intactPSYCH: normal affectAddional NotesMOLST form was updated during hospitalization: DNR/DNI Patient/Family InstructionsPrescriptionsStop taking the following medications:Amlodipine Besylate (Norvasc) 5 MG TABLET 5 MILLIGRAM ORAL Daily Atenolol (Atenolol) 100 MG TABLET 100 MILLIGRAM ORAL Daily Ranitidine HCl (Acid Cement Fittings Maker) 150 MG TABLET 150 MILLIGRAM ORAL Twice Daily Sulindac (Sulindac) 200 MG TABLET 200 MILLIGRAM ORAL as needed for PAIN Pre dnisone* (Prednisone*) 20 MG TABLET 20 MILLIGRAM ORAL Daily Continue taking these medications:IPRATROPIUM/ALBUTEROL SULFATE (Combivent Respimat Inhal [place]) 4 GM MIST.INHAL 1 SPRAY INHALATION 3 [...] rce(s) Supporting Document(s) ID Date Data Source [id number] 01/25/2020 11:05:00 AM [facility] Discharge Appointments AppointmentsFoll ow up with:LATHA [...] 100 MILLIGRAM ORAL Daily Ranitidine HCl (Acid Cement Fittings Maker) 150 MG TABLET 150 MILLIGRAM ORAL Twice Daily Sulindac (Sulindac) 200 MG TABLET 200 MILLIGRAM ORAL as needed for PAIN Prednisone* (Prednisone*) 20 MG TABLET 20 MILLIGRAM ORAL Daily Continue taking these medications:IPRATROPIUM/ALBUTEROL SULFATE (Combivent Respimat Inhal [place]ici) 4 GM MIST.INHAL 1 SPRAY INHALATION 3 [...] rce(s) Supporting Document(s) ID Date Data Source [id number] 01/24/2020 01:23:00 PM EST [facility] Patient: OSKAR DUGAN [facility]ation [facility] - [facility]VisitID: [id number] [place] [address] [phone], FRegistration Date/Time: 01/21/2020 15:37 Weight:61.6 kg (M). [...] New Order URINE SOURCE? URINE, CLEAN CATCHTSYSORDER [id number] Test Result Flag Units (Reference)URINE COLOR. YELLOW [...] MsgRcvd 01/21/2020 17:04) New O rder TSYSORDER [id number] Test Result Flag Units (Reference)COVID-19 NEGATIVE (NEGATIVE) [...] are for the indentification of SARS-CoV-2 RNA. MacTVZC-CbU-4 RNA is generally detectable in respiratorysamples during the actue phase of infection. CBC w Diff: (DEXTER: 01/21/2020 16:05)( MsgRcvd 01/21/2020 16:23) New Order TSYSORDER [id number] Test Result Flag Units (Reference)WHITE BLOOD COUNT [...] RATE 42 mL/min GFR IS CALCULATED IN mL/min/1.10v7WJHJYR FUNCTION: >90MILDLY DECREASED: 60-89MILDY TO MODERATELY DECREASED: [...] 12/09/2019 -- -- FINDINGS: -- Newly developed vqcp-ge-rlumlyyd cardiomegaly with no pulmonary venous hypertension is noted. Lungs are clear and well- expanded. Moderate COPD is unchanged. Small bilateral effusions are appreciated. -- -- IMPRESSION: -- Newly developed kwtg-ee-zjwbotef cardiomegaly without PVH and small bilateral -- [...] is not AC. Will obtain records from [facility] from last hospitalization - She may require full admission if no significant improvement by tomorrow for decompensated CHF. her OP Sheriffs Detective is CLAUDE Leslie. 1613patient re-evaluated and still [...] IV lasix and PT. We spoke to [facility] Nursing supervisor winter and awaiting her most recent Echo and [...] of CHFDyspneaA Fib rate controlled but not btwlfocqlfxpyyVO5CIJ. (Electronically signed by Higinio Black MD 01/24/2020 13:11) Weight:61.6 kg (M). Height/Length:60 inches (S). BMI:26.5 Obs Start: 01/21/2020 19:08 Obs Dispo: 01/22/2020 16:13 Obs Duration: 21 hr 11 min FAMILY HISTORYFather: Hypertension. (Electronically signed by Jodie Eaton, P.A. 01/21/2020 18:06) Name Value Range Interpretation Code Description Data Karen rce(s) Supporting Document(s) ID Date Data Source [id number] 01/24/2020 12:57:00 PM [facility] Progress Note GeneralEncounter:Chart re viewed. Patient [...] 110/67 SaO2: 98, O2 Status: GEN: NAD, A&Ka4GAOML: PERRLA, throat clear, no adenopathy/thyroidomegalyLUNGS: diminished bibasillar breath sounds, otherwise clearHEART: RRR w/o murmurABDOMEN: soft, NT/ND, normoactive bowel sounds w/o reboundLEFT ARM: chronic swelling noted but improvedLOWER EXT: 2+edema bilaterally, left leg may be a little less both to mid shins,no calf tenderness.SKIN: warm and intact NEURO: wildlife manager II-XII grossly intactPSYCH: normal affect Assessment/PlanAllergiesCoded Allergies:No [...] discussion with patient and her family regarding retirement prognosis and goals of care today. 2. [...] FeSO4 dailyh/h stable 9. Atrial fibrillation A&Prate chjlyullpmWTK5PH2-SCKb Score for Atrial Fibrillation Stroke Risk= 7Spoke to daughter in law and daughter. Patient admitted to [facility] last month and had GI bleed with gastric ulcers. Xarelto was d/c and she was placed on ASA EC 81mg daily. Will leave on this regimen for now and defer to her Sheriffs Detective / PCP to determine if she should [...] PCP 14. Pulmonary hypertension A&Wolf ECHO from [facility] December 2019.Diuresing more conservatively to maintain appropriate pre-load. 15. Severe aortic stenosis by prior echocardiogram A&Ppatient aware.F/u OP PCP and Cardiology. Disposition: She appears stable and likely ready for home d/c tomorrow VTE ProphylaxisVTE Prophylaxis: Sq Heparin. Name Value Range Interpretation Code Description Data Karen rce(s) Supporting Document(s) ID Date Data Source [id number] 01/23/2020 02:19:00 PM EST [facility] l Progress Note GeneralEncounter:Chart re viewed. Patient [...] SaO2: 97, O2 Status: RA GEN: NAD, A&Yv6UNUDH: PERRLA, throat clear, no adenopathy/thyroidomegalyLUNGS: diminished bibasilar breathsounds with occasional cracklesHEART: Irreg IrregABDOMEN: soft, NT/ND, normoactive bowel sounds w/o reboundLOWER EXT: 2-3+ edema mid shins bilaterally w/less wheeping, left arm has decreased edema. no calf tendernessSKIN: warm and intact NEURO: wildlife manager II-XII grossly intactPSYCH: normal affect Assessment/PlanAllergiesCoded Allergies:No [...] pre-load. Advance Care Planning* 20 minutes of orii-nf-zttw time spent for Advance Care Planning in explanation/discussion of Advance Directives.* Following people are present during the meeting: patient and nursing.* Decisions reached: DNR/DNI, LIMITED MEDICAL INTERVENTION, SEND TO HOSPITAL IF NECESSARY, NO FEEDING TUBE, OK TO USE ANTIBIOTICS AND IV FLUIDS NEEDED. Name Value Range Interpretation Code Description Data Karen rce(s) Supporting Document(s) ID Date Data Source [id number] 01/23/2020 06:21:00 AM [facility] Name Value Range Interpretation Code Description Data Karen rce(s) Supporting Document(s) GLUCOSE 190 mg/dL 74-106 H [facility] BLOOD UREA NITROGEN 39 mg/dL 7-18 H [facility] CREATININE 1.0 mg/dL 0.6-1.0 [facility] SODIUM 142 mmol/L 136-145 [facility] POTASSIUM 4.0 mmol/L 3.5-5.1 [facility] CHLORIDE 100 mmol/L 98-107 [facility] CO2 38 mmol/L 21-32 H [facility] CALCIUM 8.7 mg/dL 8.5-10.1 [facility] ANION GAP 4.0 mmol/L 5-12 L [facility] GLOMERULAR FILTRATION RATE 52 mL/min [employer] GFR IS CALCULATED IN mL/min/1.73m2 VALENCIA L FUNCTION: >90MILDLY DECREASED: 60-89MILDY TO MODERATELY DECREASED: 45-59 MODERATELY TO SEVERELY DECREASED: 30-44SEVERELY DECREASED: 15-29RENAL FAILURE: <15 ID Date Data Source [id number] 01/23/2020 06:17:00 AM [facility] Name Value Range Interpretation Code Description Data [facility] rce(s) Supporting Document(s) HGBA1C 9.0 % 3.8-5.6 H [facility] Diabetic > or = to 6.5%Prediabetes 5.7-6 .4%Normal <5.7 ID Date Data Source [id number] 01/23/2020 06:06:00 AM [facility] Name Value Range Interpretation Code Description Data Karen rce(s) Supporting Document(s) WHITE BLOOD COUNT 10.8 K/mm3 4.0-10.0 H [facility] matt RED BLOOD COUNT 4.49 M/mm3 4.00-5.50 [facility] HEMOGLOBIN 11.5 gm/dL 12.0-16.0 L [facility] HEMATOCRIT 39.7 % 36.0-48.8 [facility] MEAN CELL VOLUME 88.4 fl 80-96 [facility] MEAN CORPUSCULAR HEMOGLOBIN 25.6 pg 27.0-31.0 L [facility] MEAN CORPUSCULAR HGB CONC 29.0 g/dl 32.0-36.0 L [facility] RED CELL DISTRIBUTION WIDTH 20.6 % 10.0-14.5 H [facility] PLATELET COUNT 312 K/mm3 172-450 [facility] ID Date Data Source [id number] 01/22/2020 07:16:00 PM EST [facility] HistoryChief Complaint/Admit Reasonweak ness, dyspnea and leg swellingHistory of Presenting Vufbjtf15 yo female that presented through the ED [...] No ST elevation. CXR 2view (01/21/2020)Newly developed tiwf-sh-ceelouaf cardiomegaly without PVH and small bilateral effusions. Numerous left-sided meeta Laboratory Tests: UA CULTURE IF INDICATED: (DEXTER: 01/21/2020 17:45) ( [facility] 01[facility] 17[facility]51[facility] New Order URINE SOURCE? URINE, CLEAN CATCHTSYSORDER [id number] Test Result Flag Units (Reference) URINE COLOR. [...] (NEGATIVE) COVID-19 IN-HOUSE: (DEXTER: 01/21/2020 16:43) ( [facility] 01/21/2020 17:04) New Order TSYSORDER [id number] Test Result Flag Units (Reference) COVID-19 NEGATIVE [...] are for the indentification of SARS-CoV-2 RNA. PmeUPMJ-JsQ-2 R NA is generally detectable in respiratorysamples during the actue phase of infection. CBC w Diff: (DEXTER: 01/21/2020 16:05) ( MsgRcvd 01/21/2020 16:23) New Order TSYSORDER [id number] Test Result Flag Units (Reference) WHITE BLOOD [...] RATE 42 mL/min GFR IS CALCULATED IN mL/min/1.95b1MDOQBO FUNCTION: >90MILDLY DECREASED: 60-89MILDY TO MODERATELY DECREASED: [...] weightswill request records from recent hospitalization at [facility] and look for recent [place] determine EF. Records from [facility] received:2D Echo on 12/10/2019Diastolic Dysfunction with preserved [...] to daughter about this, she is unsure why.MXB4MJ6-WSUl Score for Atrial Fibrillation Stroke Risk is 6, indicating significant risk of stroke.Will review hospital notes from [facility]. Her daughter says her cardiologis is in [place], [place]. We may try to reach him friday as well. Records received from [facility]:Patient has history of GI bleed on XareltoWill discuss this further with family and consider discussing with her OP Sheriffs Detective 10. History of GI bleed A&Pstable h/h, [...] Severe aortic stenosis by prior echocardiogram A&Pper [facility] Cardiology reading of ECHO; this further compounds her medical conditions and [facility] prognosis is guarded. Will plan to discuss further withpatient/family and may require further input from her OP Sheriffs Detective at [facility]. At the least she may qualify for palliative care. DIET Consistent Carb. 45gActivity OOB as tolerated w/assistPatient Condition StablePlan discussed with patient (findings in morning.), healthcare POA, will discussfindings and facilitate discussion regarding patient's/family's wishes regardinggoals of treatment and further advanced directives tomorrow. Noelle (daughter in-law) Debo Montejo (daughter and HCP): [phone] Care Planning* 5 minutes of gjuc-xa-chjt time spent for Advance Care Planning in explanation/discussion of Advance Directives.* Following people are present during the meeting: patient only.* Decisions reached: currently no change.Will need to follow up on discussions with patient and HCP. 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 regarding any recent GI [...] Value Range Interpretation Code Description Data Karen [facility](s) Supporting Document(s) ID Date Data Source [id number] 01/22/2020 06:25:00 PM EST [facility] Name Value Range Interpretation Code Description Data Karen e(s) Supporting Document(s) GLUCOSE 232 mg/dL 74-106 H [facility] BLOOD UREA NITROGEN 41 mg/dL 7-18 *H [facility] ital CREATININE 1.2 mg/dL 0.6-1.0 H [facility] SODIUM 139 mmol/L 136-145 [facility] POTASSIUM 3.2 mmol/L 3.5-5.1 L [facility] CHLORIDE 99 mmol/L 98-107 [facility] CO2 30 mmol/L 21-32 [facility] CALCIUM 8.8 mg/dL 8.5-10.1 [facility] ANION GAP 10.0 mmol/L 5-12 [facility] GLOMERULAR FILTRATION RATE 42 mL/min [employer] GFR IS CALCULATED IN mL/min/1.73m2 VALENCIA L FUNCTION: >90MILDLY DECREASED: 60-89MILDY TO MODERATELY DECREASED: 45-59 MODERATELY TO SEVERELY DECREASED: 30-44SEVERELY DECREASED: 15-29RENAL FAILURE: <15 ID Date Data Source [id number] 01/21/2020 05:50:00 PM [facility] ital TSYSORDER [id number] Name Value Range Interpretation Code Description Data Karen rce(s) Supporting Document(s) URINE COLOR. [facility] URINE APPEARANCE CLEAR [facility] URINE GLUCOSE (UA) 1000 mg/dL NEGATIVE H [facility] ital GREATER THAN URINE BILIRUBIN NEGATIVE NEGATIVE [facility] URINE KETONE NEGATIVE mg/dL NEGATIVE [facility] al SPECIFIC GRAVITY,URINE 1.010 1.001-1.035 [facility] URINE BLOOD NEGATIVE NEGATIVE [facility] PH,URINE 5.0 5.0-9.0 [facility] URINE PROTEIN NEGATIVE mg/dL NEGATIVE [facility] UR[facility] UROBILINOGEN NORMAL(0.2-1) mg/dL 0-1 [facility] URINE NITRATE NEGATIVE NEGATIVE [facility] URINE LEUKOCYTE ESTERASE NEGATIVE NEGATIVE [facility] ID Date Data Source [id number] 01/21/2020 05:07:00 [facility] DATE OF EXAMINATION: 01/21/2020 16:08 EST CHEST 2 VIEWS HISTORY: Shortness of breath TECHNIQUE: PA and lateral radiographs of the chest COMPARISON: 12/09/2019 FINDINGS: Newly developed vynv-ad-jbdwlagw cardiomegaly with no pulmonary venoushypertension is noted. Lungs are clear and well-expanded. Moderate COPD isunchanged. Small bilateral effusions are appreciated. IMPRESSION: Newly developed wllk-qb-axajujgw cardiomegaly without PVH and small bilateraleffusions. Numerous left-sided meeta Electronically signed in PS360 by: Lindsay Mir M.D. 01/21/2020 17:01 EST Name Value Range Interpretation Code Description Data Karen rce(s) Supporting Document(s) ID Date Data Source [id number] 01/21/2020 04:43:00 PM EST [facility] Name Value Range Interpretation Code Description Data Karen rce(s) Supporting Document(s) COVID-19 [facility] This lab was ordered by [facility] and reported by [facility] Laboratory. ID Date Data Source [id number] 01/21/2020 05:03:00 PM EST [facility] TSYSORDER [id number] Name Value Range Interpretation Code Description Data Karen rce(s) Supporting Document(s) COVID-19 NEGATIVE NEGATIVE [facility] Negative results should be treated [...] are for the indentification of SARS-CoV-2 RNA. JwiMFUI-YeC-8 RNA is generally detectable in respiratorysamples during the actue phase of infection. ID Date Data Source [id number] 01/21/2020 05:04:00 PM EST [facility] TSYSORDER [id number] Name Value Range Interpretation Code Description Data Karen rce(s) Supporting Document(s) TROPONIN I 0.018 ng/mL 0.0-0.056 [facility] ID Date Data Source [id number] 01/21/2020 05:04:00 PM EST [facility] TSYSORDER [id number] Name Value Range Interpretation Code Description Data Karen rce(s) Supporting Document(s) B-TYPE NATRIURETIC PEPTIDE 2718 pg/ml 0-450 *H [facility] ID Date Data Source [id number] 01/21/2020 05:04:00 PM EST [facility] TSYSORDER [id number] Name Value Range Interpretation Code Description Data Karen rce(s) Supporting Document(s) GLUCOSE 397 mg/dL 74-106 *H [facility] BLOOD UREA NITROGEN 41 mg/dL 7-18 *H [facility] ital CREATININE 1.2 mg/dL 0.6-1.0 H [facility] SODIUM 136 mmol/L 136-145 [facility] POTASSIUM 4.0 mmol/L 3.5-5.1 [facility] CHLORIDE 95 mmol/L 98-107 L [facility] CO2 32 mmol/L 21-32 [facility] CALCIUM 9.1 mg/dL 8.5-10.1 [facility] ANION GAP 9.0 mmol/L 5-12 [facility] GLOMERULAR FILTRATION RATE 42 mL/min [employer] GFR IS CALCULATED IN mL/min/1.73m2 VALENCIA L FUNCTION: >90MILDLY DECREASED: 60-89MILDY TO MODERATELY DECREASED: 45-59 MODERATELY TO SEVERELY DECREASED: 30-44SEVERELY DECREASED: 15-29RENAL FAILURE: <15 AST 12 U/L 15-37 [facility] ALT 36 U/L 12-78 [facility] ALKALINE PHOSPHATASE 95 U/L 46-116 [facility] pital TOTAL BILIRUBIN 0.7 mg/dL 0.2-1.0 [facility] TOTAL PROTEIN 6.4 g/dl 6.4-8.2 [facility] ALBUMIN 3.4 gm/dL 3.4-5.0 [facility] ID Date Data Source [id number] 01/21/2020 04:33:00 PM [facility] Name Value Range Interpretation Code Description Data Karen rce(s) Supporting Document(s) PARTIAL THROMBOPLASTIN TIME 21.7 SECONDS 21.2-27.3 [facility] ID Date Data Source [id number] 01/21/2020 04:33:00 PM [facility] Name Value Range Interpretation Code Description Data Karen rce(s) Supporting Document(s) PROTHROMBIN TIME (PATIENT) 10.4 SECONDS 9.1-11.6 [facility] INR 1.00 0.87-1.06 [facility] ID Date Data Source [id number] 01/21/2020 04:22:00 PM [facility] TSYSORDER [id number] Name Value Range Interpretation Code Description Data Karen rce(s) Supporting Document(s) WHITE BLOOD COUNT 13.1 K/mm3 4.0-10.0 [facility] RED BLOOD COUNT 4.19 M/mm3 4.00-5.50 [facility] HEMOGLOBIN 10.8 gm/dL 12.0-16.0 L [facility] HEMATOCRIT 36.4 % 36.0-48.8 [facility] MEAN CELL VOLUME 86.9 fl 80-96 [facility] MEAN CORPUSCULAR HEMOGLOBIN 25.8 pg 27.0-31.0 L [facility] MEAN CORPUSCULAR HGB CONC 29.7 g/dl 32.0-36.0 L [facility] RED CELL DISTRIBUTION WIDTH 19.8 % 10.0-14.5 H [facility] PLATELET COUNT 333 K/mm3 172-450 [facility] MEAN PLATELET VOLUME 9.1 fl 9.0-13.0 [facility] pital GRAN % 87.4 % 50-80.0 H [facility] IG% 0.4 % 0.0-0.2 H [facility] LYMPH % 5.8 % 25.0-50.0 L [facility] MONO % 6.2 % 2.0-10.0 [facility] EOS % 0.1 % 0-5.0 [facility] BASO % 0.1 % 0.0-2.0 [facility] GRAN # 11.5 K/mm3 2.0-8.00 H [facility] IG# 0.1 K/mm3 0.0-0.2 [facility] LYMPH # 0.8 K/mm3 1.0-5.0 L [facility] MONO # 0.8 K/mm3 0.10-1.20 [facility] EOS # 0.0 K/mm3 0.0-0.5 [facility] BASO # 0.0 K/mm3 0.0-0.2 [facility] ID Date Data Source [id number] 12/10/2019 02:06:00 AM EDT [facility] Patient: OSKAR DUGAN Observation Report - [facility].VisitID: [id number] [place] [address] [phone], FRegistration Date/Time: 12/09/2019 16:03 Weight:58.5 kg (S). [...] rce(s) Supporting Document(s) ID Date Data Source [id number] 12/09/2019 09:02:00 PM EDT [facility] TSYSORDER [id number] Name Value Range Interpretation Code Description Data Karen rce(s) Supporting Document(s) Adenovirus Not Detected Detected Not [facility] Coronavirus 229E Not Detected Detected Not [facility] Coronavirus HKU1 Not Detected Detected Not [facility] Coronavirus NL63 Not Detected Detected Not [facility] Coronavirus OC43 Not Detected Detected Not [facility] Sars Cov 2 Not Detected Detected Not [facility] Human Metapneumovirus Not Detected Detected Not [facility] Human Rhinovirus Not Detected Detected Not [facility] Influenza A Not Detected Detected [facility] Influenza B Not Detected Detected [facility] Parainfluenza Virus 1 Not Detected Detected Not [facility] [facility] Parainfluenza Virus 2 Not Detected Detected Not [facility] Parainfluenza Virus 3 Not Detected Detected Not [facility] Parainfluenza Virus 4 Not Detected Detected Not [facility] Respiratory Syncytial Virus Not Detected Detected Not [facility] Bordetella parapertus ([id number]) Not Detected Detected Not [facility] Bordetella pertussis (ptxP) Not Detected Detected Not [facility] Chlamydia pneumoniae Not Detected Detected Not [facility] Mycoplasma pneumoniae Not Detected Detected Not [facility] The Above results have been determined b y using the [employer]ORCHmolecular FilmArray system.FilmArray is an automated in vitro diagnostic system thatutilizes nested multiplex Polymerase Chain Reaction (PCR)and high-resolution melting analysis to detect and identifymultiple nucleic acid targets from clinical specimens. ID Date Data Source [id number] 12/09/2019 05:05:00 PM EDT [facility] [...] rce(s) Supporting Document(s) ID Date Data Source [id number] 12/09/2019 05:59:00 PM EDT [facility] TSYSORDER [id number] Name Value Range Interpretation Code Description Data Karen rce(s) Supporting Document(s) BLOOD TYPE ABO A [facility] RH TYPE NEGATIVE [facility] ANTIBODY SCREEN NEGATIVE [facility] CROSSMATCH COMPATIBLE [facility] SEE TRANSFUSION RECORD IN [id number] 52 O NEG IS=0UNITS ARE READY FOR TRANSFUSION CROSSMATCH COMPATIBLE [facility] SEE TRANSFUSION RECORD IN [id number] 89 O NEG IS=0UNITS ARE READY FOR TRANSFUSION ID Date Data Source [id number] 12/09/2019 05:22:00 PM EDT [facility] l TSYSORDER [id number] Name Value Range Interpretation Code Description Data Karen rce(s) Supporting Document(s) MAGNESIUM 2.2 mg/dL 1.8-2.4 [facility] ID Date Data Source [id number] 12/09/2019 05:22:00 PM EDT [facility] l TSYSORDER [id number] Name Value Range Interpretation Code Description Data Kaern rce(s) Supporting Document(s) TROPONIN I 0.024 ng/mL 0.0-0.056 [facility] ID Date Data Source [id number] 12/09/2019 05:22:00 PM T [facility] TSYSORDER [id number] Name Value Range Interpretation Code Description Data Karen rce(s) Supporting Document(s) GLUCOSE 394 mg/dL 74-106 *H [facility] BLOOD UREA NITROGEN 23 mg/dL 7-18 H [facility] ital CREATININE 1.1 mg/dL 0.6-1.0 H [facility] SODIUM 140 mmol/L 136-145 [facility] POTASSIUM 2.7 mmol/L 3.5-5.1 L [facility] CHLORIDE 98 mmol/L 98-107 [facility] CO2 41 mmol/L 21-32 *H [facility] CALCIUM 8.5 mg/dL 8.5-10.1 [facility] ANION GAP 1.0 mmol/L 5-12 L [facility] GLOMERULAR FILTRATION RATE 47 mL/min [facility] GFR IS CALCULATED IN mL/min/1.73m2 VALENCIA L FUNCTION: >90MILDLY DECREASED: 60-89MILDY TO MODERATELY DECREASED: 45-59 MODERATELY TO SEVERELY DECREASED: 30-44SEVERELY DECREASED: 15-29RENAL FAILURE: <15 AST 9 U/L 15-37 L [facility] ALT 17 U/L 12-78 [facility] ALKALINE PHOSPHATASE 72 U/L 46-116 [facility] pital TOTAL BILIRUBIN 0.7 mg/dL 0.2-1.0 [facility] TOTAL PROTEIN 6.3 g/dl 6.4-8.2 L [facility] ALBUMIN 3.4 gm/dL 3.4-5.0 [facility] ID Date Data Source [id number] 12/09/2019 05:11:00 PM [facility] Name Value Range Interpretation Code Description Data Karen rce(s) Supporting Document(s) PARTIAL THROMBOPLASTIN TIME 22.5 SECONDS 21.4-30.2 [facility] ID Date Data Source [id number] 12/09/2019 05:11:00 PM [facility] Name Value Range Interpretation Code Description Data Karen rce(s) Supporting Document(s) PROTHROMBIN TIME (PATIENT) 11.9 SECONDS 9.2-11.6 H [facility] INR 1.14 0.87-1.06 H [facility] ID Date Data Source [id number] 12/09/2019 05:04:00 PM EDT [facility] TSYSORDER [id number] Name Value Range Interpretation Code Description Data Karen rce(s) Supporting Document(s) WHITE BLOOD COUNT 7.8 K[facility]3 4.0[facility]10.0 [facility] 2.98 M/mm3 4.00-5.50 L [facility] HEMOGLOBIN 7.6 gm/dL 12.0-16.0 L [facility] HEMATOCRIT 26.8 % 36.0-48.8 L [facility] MEAN CELL VOLUME 89.9 fl 80-96 [facility] MEAN CORPUSCULAR HEMOGLOBIN 25.5 pg 27.0-31.0 L [facility] MEAN CORPUSCULAR HGB CONC 28.4 g/dl 32.0-36.0 L [facility] RED CELL DISTRIBUTION WIDTH 16.8 % 10.0-14.5 H [facility] PLATELET COUNT 295 K/mm3 172-450 [facility] MEAN PLATELET VOLUME 9.5 fl 9.0-13.0 [facility] pital GRAN % 84.0 % 50-80.0 H [facility] IG% 0.3 % 0.0-0.2 H [facility] LYMPH % 7.3 % 25.0-50.0 L [facility] MONO % 6.7 % 2.0-10.0 [facility] EOS % 1.2 % 0-5.0 [facility] BASO % 0.5 % 0.0-2.0 [facility] GRAN # 6.6 K/mm3 2.0-8.00 [facility] IG# 0.0 K/mm3 0.0-0.2 [facility] LYMPH # 0.6 K/mm3 1.0-5.0 L [facility] MONO # 0.5 K/mm3 0.10-1.20 [facility] EOS # 0.1 K/mm3 0.0-0.5 [facility] BASO # 0.0 K/mm3 0.0-0.2 [facility] ID Date Data Source [id number] 12/09/2019 12:00:00 AM EDT [facility] Name Value Range Interpretation Code Description Data Karen rce(s) Supporting Document(s) 2019 Novel Coronavirus RNA [facility] This lab was ordered by [facility] L aboratory and reported by [facility] Laboratory. ID Date Data Source [id number] 11/10/2019 05:56:00 AM EDT [facility] NAME: OSKAR DUGAN 2 88 MRUN: [id number] LOC: 4E ACCT: [id number] SRV: JAIME Moe.#: RPT#: [id number] XR CHEST 2 VIEW PA/LAT [id number] Date/Time:11/10/19 0500 Dx: PNA - RLL Order [...] Transcribed By: 0 0716 PACS IMAGE LINK ([facility] USE ONLY) [email or web address] Name Value Range Interpretation Code Description Data Karen rce(s) Supporting Document(s) ID Date Data Source [id number] 11/10/2019 06:15:00 AM EDT [facility] Name Value Range Interpretation Code Description Data Karen rce(s) Supporting Document(s) WBC 8.5 k/UL 4.3-11.[address] [facility] nter RBC 3.07 M/UL 4.20-5.[address] [facility] nter HEMOGLOBIN 9.4 G/DL 12.0-16.0 L [facility] C enter HEMATOCRIT 31.4 % 38.0-47.0 L [facility] C enter MCV 102.3 FL 75.0-105.0 [facility] C enter MCH 30.6 PG 26.0-33.0 [facility] Ce nter MCHC 29.9 G/DL 31.0-36.[address] [facility] nter RED CELL DISTRIBUTION WIDTH 18.2 % 11.6-14.6 H On [facility] Reference range changed effective 09/15 PLATELET COUNT 264 K/UL 150-400 [facility] MEAN PLATELET VOLUME 9.4 FL 8.7-12.3 [facility] NEUTROPHILS AUTOMATED 77.2 % 47.0-76.[address] [facility] LYMPHOCYTE AUTOMATED 10.9 % 12.0-44.0 L [facility] MONOCYTES AUTOMATED 8.1 % 2.0-12.0 [facility] EOSINOPHILS AUTOMATED 2.8 % 0.0-6.0 [facility] BASOPHILS AUTOMATED 0.6 % 0.0-3.0 [facility] ABS.NEUTROPHILS AUTOMATED 6.56 K/UL 1.50-7.50 [facility] ABS. LYMPHOCYTES AUTOMATED 0.93 K/UL 0.80-2.80 [facility] ABS.MONOCYTES AUTOMATED 0.69 K/UL 0.20-1.00 [facility] ABS. EOSINOPHILS AUTOMATED 0.24 K/UL 0.20-0.40 [facility] ABS. BASOPHILS AUTOMATED 0.05 K/UL 0.00-0.20 [facility] IMMATURE GRANULOCYTE 0.4 % 0.0-0.6 [facility] ABS IMMATURE GRANULOCYTE 0.03 K/UL 0.00-0.04 [facility] NUCLEATED RBC 0.0 % 0.0-0.0 [facility] Center ID Date Data Source [id number] 11/10/2019 06:37:00 AM EDT [facility] Name Value Range Interpretation Code Description Data Karen rce(s) Supporting Document(s) SODIUM 136 MMOL/L 136-145 [facility] C enter POTASSIUM 4.0 MMOL/L 3.4-5.0 [facility] C enter CHLORIDE 96 MMOL/L 98-107 L [facility] Ce nter CO2 33 MMOL/L 22-29 H [facility] Ce nter ANION GAP 11 MMOL/L 10-20 [facility] Ce nter GLUCOSE 68 MG/DL 70-99 L [facility] Ce nter CREATININE 0.7 MG/DL 0.5-0.9 [facility] C enter BUN 26 MG/DL 6-[address] [facility] nter CALCIUM 8.7 MG/DL 8.8-10.[address] [facility] nter ID Date Data Source [id number] 11/09/2019 06:23:00 AM EDT [facility] Name Value Range Interpretation Code Description Data Karen rce(s) Supporting Document(s) WBC 9.9 k/UL 4.3-11.0 [facility] Ce nter RBC 3.41 M/UL 4.20-5.[address] [facility] nter HEMOGLOBIN 10.5 G/DL 12.0-16.0 L [facility] C enter HEMATOCRIT 35.5 % 38.0-47.0 L [facility] C enter MCV 104.1 FL 75.0-105.0 [facility] C enter MCH 30.8 PG 26.0-33.[address] [facility] nter MCHC 29.6 G/DL 31.0-36.[address] [facility] nter RED CELL DISTRIBUTION WIDTH 18.3 % 11.6-14.6 H On [facility] Reference range changed effective 09/15 PLATELET COUNT 279 K/UL 150-400 [facility] MEAN PLATELET VOLUME 9.3 FL 8.7-12.3 [facility] NEUTROPHILS AUTOMATED 77.1 % 47.0-76.0 H [facility] LYMPHOCYTE AUTOMATED 11.5 % 12.0-44.0 L [facility] MONOCYTES AUTOMATED 8.5 % 2.0-12.0 [facility] EOSINOPHILS AUTOMATED 2.0 % 0.0-6.0 [facility] BASOPHILS AUTOMATED 0.5 % 0.0-3.0 [facility] ABS.NEUTROPHILS AUTOMATED 7.63 K/UL 1.50-7.50 H [facility] ABS. LYMPHOCYTES AUTOMATED 1.14 K/UL 0.80-2.80 [facility] ABS.MONOCYTES AUTOMATED 0.84 K/UL 0.20-1.00 [facility] ABS. EOSINOPHILS AUTOMATED 0.20 K/UL 0.20-0.40 [facility] ABS. BASOPHILS AUTOMATED 0.05 K/UL 0.00-0.20 [facility] IMMATURE GRANULOCYTE 0.4 % 0.0-0.6 [facility] ABS IMMATURE GRANULOCYTE 0.04 K/UL 0.00-0.04 [facility] NUCLEATED RBC 0.0 % 0.0-0.0 [facility] ID Date Data Source [id number] 11/09/2019 06:58:00 AM EDT [facility] Name Value Range Interpretation Code Description Data Karen rce(s) Supporting Document(s) SODIUM 138 MMOL/L 136-145 [facility] C enter POTASSIUM 4.1 MMOL/L 3.4-5.0 [facility] C enter CHLORIDE 96 MMOL/L 98-107 L [facility] Ce nter CO2 32 MMOL/L 22-[address] [facility] nter ANION GAP 14 MMOL/L 10-20 [facility] Ce nter GLUCOSE 231 MG/DL 70-[address] [facility] nter CREATININE 0.9 MG/DL 0.5-0.9 [facility] C enter BUN 25 MG/DL 6-[address] [facility] nter CALCIUM 9.1 MG/DL 8.8-10.[address] [facility] nter ID Date Data Source [id number] 11/08/2019 12:26:00 PM EDT [facility] REQUESTING PHYSICIAN: [*] CONSULTING PHYSICIAN: Dr. Alejo [...] [*] SOCIAL HISTORY: , three children. 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 She quit smoking about 7 years ago [...] historian. DIAGNOSTIC TESTS: [place] [address], Hct. 39. Platelet count 289. I R: [...] Will discuss with the hospitalist. JOB #: [id number] DICTATED BY Jitendra Alejo MD 11/08/19 1226 Electronically Signed By Jitendra Alejo MD 11/09/19 1255 Transcribed By [email or web address] 11/08/19 1428 Name Value Range Interpretation Code Description Data Karen rce(s) Supporting Document(s) ID Date Data Source [id number] 11/12/2019 04:06:15 AM EDT [employer] tics Received: 11/09/2019 at 03:17:00 F: [facility], [address] [place], [address], SUMI MATHUR MD, PHD Name Value Range Interpretation Code Description Data Karen rce(s) Supporting Document(s) Beta hydroxybutyrate [Moles/volume] in Serum or Plasma 1.45 mmol/L ADULT: 0.28 OR LESS Above high normal [facility] ID Date Data Source [id number] 11/12/2019 04:11:00 AM EDT [facility] TEST PERFORMED AT:F-[facility] [place], [place] [address]LEQSUMI MATHUR MD, PHD Name Value Range Interpretation Code Description Data Karen rce(s) Supporting Document(s) BETA-HYDROXYBUTYRATE 1.45 mmol/L A [facility] Reference Range: ADULT: 0.28 OR LESS Abnormal Flag: H ID Date Data Source [id number] 11/08/2019 05:57:00 AM EDT [facility] NAME: OSKAR DUGAN 2 88 MRUN: [id number] LOC: 4E ACCT: [id number] SRV: JAIME O.VRosa#: RPT#: [id number] XR CHEST 1VIEW-(PORTABLE) [id number] Date/Time:11/08/19 0042 Dx: vomiting Order Phy: Layo [...] By: MATTHEW. 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 Date/Time:11/08/19 0500 Dx: AFib Exam Date:Nov 08 2019 05:37:55 Ventricular Rate:112 BPM Atrial Rate:108 BPM QRS Duration:78 ms Q-T Interval:320 ms QTC Calculation(Bazett):436 ms R [place]:76 degrees T [place]:257 degrees Diagnosis:Atrial fibrillation with rapid ventricular response Diagnosis:Septal infarct (cited on or before 19-MAY-2018) Diagnosis:LOW VOLTS Diagnosis:T wave abnormality, consider inferior ischemia Diagnosis:Abnormal ECG Diagnosis:When compared with ECG of 08-NOV-2019 00:32, (Unconfirmed) Diagnosis:Nonspecific T wave abnormality now evident in Anterior leads Diagnosis:Confirmed by Tanner Ibnaez MD ([id number]) on 11/08/2019 6:36:59 AM Dictated By:Tanner Ibanez MD Electronically Signed By: Tanner Ibanez MD 11/08/19 0637 Name Value Range Interpretation Code Description Data Karen rce(s) Supporting Document(s) ID Date Data Source [id number] 11/08/2019 09:00:00 AM EDT [facility] Physician Instructions: add to am labs Name Value Range Interpretation Code Description Data Karen rce(s) Supporting Document(s) HEMOGLOBIN A1C 7.5 % 4.8-5.7 H [facility] ID Date Data Source [id number] 11/08/2019 06:24:00 AM EDT [facility] Name Value Range Interpretation Code Description Data Karen rce(s) Supporting Document(s) WBC 19.6 k/UL 4.3-11.[address] [facility] nter RBC 3.87 M/UL 4.20-5.[address] [facility] nter HEMOGLOBIN 11.9 G/DL 12.0-16.0 L [facility] C enter HEMATOCRIT 39.3 % 38.0-47.0 [facility] C enter MCV 101.6 FL 75.0-105.0 [facility] C enter MCH 30.7 PG 26.0-33.[address] [facility] nter MCHC 30.3 G/DL 31.0-36.[address] [facility] nter RED CELL DISTRIBUTION WIDTH 17.9 % 11.6-14.6 H On [facility] Reference range changed effective 09/15 PLATELET COUNT 289 K/UL 150-400 [facility] MEAN PLATELET VOLUME 9.4 FL 8.7-12.3 [facility] NEUTROPHILS AUTOMATED 94.0 % 47.0-76.[address] [facility] LYMPHOCYTE AUTOMATED 1.4 % 12.0-44.0 L [facility] MONOCYTES AUTOMATED 3.9 % 2.0-12.0 [facility] EOSINOPHILS AUTOMATED 0.1 % 0.0-6.0 [facility] BASOPHILS AUTOMATED 0.3 % 0.0-3.0 [facility] ABS.NEUTROPHILS AUTOMATED 18.44 K/UL 1.50-7.50 H [facility] ABS. LYMPHOCYTES AUTOMATED 0.27 K/UL 0.80-2.80 L [facility] ABS.MONOCYTES AUTOMATED 0.76 K/UL 0.20-1.00 [facility] ABS. EOSINOPHILS AUTOMATED 0.01 K/UL 0.20-0.40 L [facility] ABS. BASOPHILS AUTOMATED 0.06 K/UL 0.00-0.20 [facility] IMMATURE GRANULOCYTE 0.3 % 0.0-0.6 [facility] ABS IMMATURE GRANULOCYTE 0.06 K/UL 0.00-0.[address] [facility] NUCLEATED RBC 0.0 % 0.0-0.0 [facility] ID Date Data Source [id number] 11/08/2019 06:38:00 AM EDT [facility] Name Value Range Interpretation Code Description Data Karen rce(s) Supporting Document(s) SODIUM 148 MMOL/L 136-145 H [facility] enter POTASSIUM 3.4 MMOL/L 3.4-5.0 [facility] C enter CHLORIDE 98 MMOL/L 98-[address] [facility] nter CO2 34 MMOL/L 22-[address] [facility] nter ANION GAP 19 MMOL/L 10-[address] [facility] nter GLUCOSE 282 MG/DL 70-[address] [facility] nter CREATININE 0.7 MG/DL 0.5-0.9 [facility] enter BUN 20 MG/DL 6-[address] [facility] nter CALCIUM 9.3 MG/DL 8.8-10.[address] [facility] nter ID Date Data Source [id number] 11/08/2019 01:20:00 AM EDT [facility] Name Value Range Interpretation Code Description Data Karen rce(s) Supporting Document(s) 2019-nCoV RNA panel by probe and target amplification method [facility] This lab was ordered by [facility] and rep orted by [place]. ID Date Data Source [id number] 11/08/2019 03:05:00 AM EDT [facility] Name Value Range Interpretation Code Description Data Karen rce(s) Supporting Document(s) RAPID COVID-19 VIRAL RNA NOT DETECTED On [facility] Performed by rapid molecular testing uti [...] DETECTED results are indicative of the presence hiHCGB-QfJ-0 RNA; clinical correlation with patient historyand other diagnostic information is necessary to determinepatient infection status. Positive results do not rule outbacterial infection or co-infection with other viruses.Testing facilities within the [place] are required toreport all positive results to the appropriate public healthauthorities.A NOT DETECTED result does not preclude EDCY-FlM-2dxggofovk and should not be used as the sole basis forpatient management decisions.This test has been authorized by the FDA under the EmergencyUse Authorization (EAU)Reference Range=NOT DETECTED ID Date Data Source [id number] 11/08/2019 01:04:00 AM EDT [facility] Hx of Present Ill.-Med. Prob Chief Complaint: [...] FEVER Carvedilol (Coreg*) 6.25 mg PO BIDWM [facility] Dextrose (Dextrose 50% Adult Syringe*) 25 gm IVP DIRECTED PRN PRN Reason: BG < 60 IF UNABLE TO TAKE PO Diltiazem HCl (Cardizem Cd*) 180 mg PO DAILY [facility] Enalapril Maleate (Vasotec*) 20 mg PO BID [facility] Furosemide (Lasix*) 20 mg PO DAILY [facility] Glucagon (Glucagon*) 1 mg IM DIRECTED PRN PRN Reason: BG < 60 NO IV ACCESS/NPO Glucose (Glutose-15 Oral Gel*) 15 gm PO DIRECTED PRN PRN Reason: BG < 60 IF ABLE TO TAKE PO Sodium Chloride (Normal Saline*) 500 mls @ 50 mls/hr IV DIRECTED [facility] Insulin Aspart (Novolog*) 0 unit SQ PCHS [facility]; Protocol Non-Formulary Medication (Pravastatin Sodium [Pravachol]) 40 mg PO DAILY [facility] Ondansetron HCl (Zofran*) 4 mg IVP Q6H PRN PRN Reason: NAUSEA / VOMITING Pantoprazole Sodium (Protonix*) 40 mg PO DAILY@0500 [facility] Rivaroxaban (Xarelto*) 20 mg PO DAILYEVENINGMEAL MIHIR [...] Chemistry Interpretation: Elevated - glucose, pbnp Hospitalist Mathematical Scientist/PCP Name: 11/08/19 01:56 p dar: discussed...will admit [...] rce(s) Supporting Document(s) ID Date Data Source [id number] 11/08/2019 03:51:00 AM EDT [facility] Name Value Range Interpretation Code Description Data Karen rce(s) Supporting Document(s) FT4 1.27 NG/DL 0.9-1.7 [facility] enter ID Date Data Source [id number] 11/08/2019 03:51:00 AM EDT [facility] Name Value Range Interpretation Code Description Data Karen rce(s) Supporting Document(s) TSH 6.730 uIU/ML 0.270-4.200 H [facility] ID Date Data Source [id number] 11/08/2019 01:47:00 AM EDT [facility] Name Value Range Interpretation Code Description Data Karen rce(s) Supporting Document(s) PRO-BNP 1247 PG/ML 0-450 H [facility] enter ID Date Data Source [id number] 11/08/2019 01:42:00 AM EDT [facility] Name Value Range Interpretation Code Description Data Karen rce(s) Supporting Document(s) SODIUM 142 MMOL/L 136-145 [facility] C enter POTASSIUM 3.4 MMOL/L 3.4-5.0 [facility] C enter CHLORIDE 95 MMOL/L 98-107 L [facility] Ce nter CO2 32 MMOL/L 22-29 H [facility] Ce nter ANION GAP 18 MMOL/L 10-20 [facility] Ce nter GLUCOSE 270 MG/DL 70-99 H [facility] Ce nter CREATININE 0.8 MG/DL 0.5-0.9 [facility] C enter BUN 18 MG/DL 6-20 [facility] Ce nter CALCIUM 9.8 MG/DL 8.8-10.2 [facility] Ce nter TOTAL PROTEIN 6.8 G/DL 6.4-8.3 [facility] ALBUMIN 4.2 G/DL 3.5-5.2 [facility] Ce nter BILIRUBIN,TOTAL 1.3 MG/DL 0.0-1.2 H [facility] are Center ALKALINE PHOSPHATASE 80 U/L 35-104 [facility] AST 16 U/L 0-32 [facility] Ce nter ALT 16 U/L 0-[address] [facility] nter ID Date Data Source [id number] 11/08/2019 01:42:00 AM EDT [facility] Name Value Range Interpretation Code Description Data Karen rce(s) Supporting Document(s) LIPASE 24 U/L 13-[address] [facility] nter ID Date Data Source [id number] 11/08/2019 01:42:00 AM EDT [facility] Name Value Range Interpretation Code Description Data Karen rce(s) Supporting Document(s) TROPONIN T < 0.01 NG/ML 0.00-0.10 [facility] ID Date Data Source [id number] 11/08/2019 01:45:00 AM EDT [facility] Name Value Range Interpretation Code Description Data Karen rce(s) Supporting Document(s) WBC 15.8 k/UL 4.3-11.0 H [facility] Ce nter RBC 4.09 M/UL 4.20-5.40 L [facility] Ce nter HEMOGLOBIN 12.7 G/DL 12.0-16.0 [facility] C enter HEMATOCRIT 40.9 % 38.0-47.0 [facility] C enter MCV 100.0 FL 75.0-105.0 [facility] C enter MCH 31.1 PG 26.0-33.0 [facility] Ce nter MCHC 31.1 G/DL 31.0-36.0 [facility] Ce nter RED CELL DISTRIBUTION WIDTH 17.7 % 11.6-14.6 H On [facility] Reference range changed effective 09/15 PLATELET COUNT 329 K/UL 150-400 [facility] MEAN PLATELET VOLUME 9.4 FL 8.7-12.3 [facility] NEUTROPHILS AUTOMATED 92.9 % 47.0-76.[address] [facility] LYMPHOCYTE AUTOMATED 2.7 % 12.0-44.0 L [facility] MONOCYTES AUTOMATED 3.2 % 2.0-12.0 [facility] EOSINOPHILS AUTOMATED 0.2 % 0.0-6.0 [facility] BASOPHILS AUTOMATED 0.5 % 0.0-3.0 [facility] ABS.NEUTROPHILS AUTOMATED 14.69 K/UL 1.50-7.50 [facility] [facility] ABS. LYMPHOCYTES AUTOMATED 0.43 K/UL 0.80-2.80 L [facility] ABS.MONOCYTES AUTOMATED 0.51 K/UL 0.20-1.00 [facility] ABS. EOSINOPHILS AUTOMATED 0.03 K/UL 0.20-0.40 L [facility] ABS. BASOPHILS AUTOMATED 0.08 K/UL 0.00-0.20 [facility] IMMATURE GRANULOCYTE 0.5 % 0.0-0.6 [facility] ABS IMMATURE GRANULOCYTE 0.08 K/UL 0.00-0.[address] [facility] NUCLEATED RBC 0.0 % 0.0-0.0 [facility] ID Date Data Source [id number] 11/08/2019 12:32:00 AM EDT [facility] NAME: OSKAR DUGAN 1930 88 MRUN: [id number] LOC: 4E ACCT: [id number] SRV: OBVH RPT#: [id number] ELECTROCARDIOGRAM Order Phy: Layo Nielsen MD Date/Time:11/08/1940 Dx: vomiting Exam Date:Nov 08 2019 00:32:08 Ventricular Rate:124 BPM Atrial Rate:124 BPM QRS Duration:78 ms Q-T Interval:294 ms QTC Calculation(Bazett):422 ms R [place]:91 degrees T [place]:250 degrees Diagnosis:Atrial fibrillation with rapid ventricular response [...] rce(s) Supporting Document(s) ID Date Data Source [id number] 11/08/2019 03:27:00 AM EDT [facility] Urine Specimen Collection Method Clean C atchUrine Specimen Collection on Ice NOutput, Urine Amount 200Urine Specimen Collection Container labeled (time/d Urine Specimen Collection Method Clean C atchUrine Specimen Collection on Ice NOutput, Urine Amount 200Urine Specimen Collection Container labeled (time/[place] [address] Shweta Silva M.D., Shading Painter Laboratory Report Pg 1 PATIENT: OSKAR DUGAN : [birth year] M.R.N.: [id number] DOCTOR: Anna Fowler MD AGE/SEX: 89/F COPIES TO: LOC: 4E 419-W MD Layo Farris, MD Anna Fowler, MD Rosanne Trejo, KAPOK MACHINE OPERATOR Morales Orozco MD Specimen: [id number] COMP Collected: 11/08/19-UNK Received: 11/08/19- 233 Source: [...] Karen rce(s) Supporting Document(s) URINE COLOR YELLOW [facility] URINE APPEARANCE CLOUDY [facility] URINE SPECIFIC GRAVITY 1.015 1.005-1.025 [facility] URINE GLUCOSE >=1000 MG/DL 0 - 99 A [facility] URINE BILIRUBIN NEGATIVE NEGATIVE [facility] URINE KETONES 15 MG/DL 0-14 A [facility] URINE BLOOD TRACE NEGATIVE A [facility] URINE pH 6.0 5.0 - 8.0 [facility] nter URINE PROTEIN TRACE MG/DL 0-30 [facility] URINE UROBILINOGEN 0.2 EU/DL 0.2-1.0 [facility] URINE NITRITE NEGATIVE NEGATIVE [facility] URINE LEUKOCYTE ESTERASE NEGATIVE NEGATIVE [facility] a [facility] ID Date Data Source [id number] 11/08/2019 03:27:00 AM EDT [facility] Urine Specimen Collection Method Clean C atcrine Specimen Collection on Ice NOutput, Urine Amount 200Urine Specimen Collection Container labeled (time/d Urine Specimen Collection Method Clean C atchUrine Specimen Collection on Ice NOutput, Urine Amount 200Urine Specimen Collection Container labeled (time/[place] [address] Shweta Silva M.D., Shading Painter Laboratory Report Pg 1 PATIENT: OSKAR DUGAN [facility] #: [id number] : [birth year] M.R.N.: [id number] DOCTOR: Anna Fowler MD AGE/SEX: 89/F COPIES TO: LOC: 4E 419-W MD Layo Farris, MD Anna Fowler, MD Rosanne Trejo, KAPOK MACHINE OPERATOR Morales Orozco MD Specimen: [id number] COMP Collected: 11/08/19-UNK Received: 11/08/19233 Source: UR [...] WBC 6-10 /HPF 0 - 5 A [facility] URINE RBC NONE SEEN /HPF 0 - 2 [facility] URINE BACTERIA 4+ 0 - 1+ A [facility] URINE EPITHELIAL CELLS 0-2 /HPF 0 - 5 [facility] ID Date Data Source [id number] 11/10/2019 07:28:00 AM EDT [facility] Urine Specimen Collection Method Clean C atchUrine Specimen Collection on Ice NOutput, Urine Amount 200Urine Specimen Collection Container labeled (time/d Urine Specimen Collection Method Clean C atchUrine Specimen Collection on Ice NOutput, Urine Amount 200Urine Specimen Collection Container labeled (time/[place] [address] Shweta Silva M.D., Shading Painter Laboratory Report Pg 1 PATIENT: OSKAR DUGAN : [birth year] M.R.N.: [id number] DOCTOR: Anna Fowler MD AGE/SEX: 89/F COPIES TO: LOC: 4E 419-W MD Layo Farris, MD Anna Fowler, MD Rosanne Trejo, KAPOK MACHINE OPERATOR Morales Orozco MD Specimen: [id number] COMP Collected: 11/08/19- Received: 11/08/19233 Source: ROSENDO [...] Date Data Source CT PULMONARY ANGIOGRAM - [id number] 10/28/2019 01:54:45 PM EDT eC W1 ([facility] [place] Name Value Range Interpretation Code Description Data Karen rce(s) Supporting Document(s) CT PULMONARY ANGIOGRAM - [id number] eCW1 ([facility] [place] ID Date Data Source [id number] 10/28/2019 12:47:00 PM EDT [facility] CT Chest and CT Pulmonary Angiogram DATE [...] Source DDIMER 10/28/2019 11:21:55 AM EDT eCW1 ([facility]) Name Value Range Interpretation Code Description Data Karen rce(s) Supporting Document(s) 0.93 DDIMER eCW1 ([facility] [place] ID Date Data Source [id number]/[id number] 10/28/2019 10:45:38 AM EDT eCW1 ([facility]) Name Value Range Interpretation Code Description Data Karen rce(s) Supporting Document(s) 11.5 WHITE BLOOD COUNT eCW1 ([facility] [place]) 96.8 MEAN CELL VOLUME eCW1 ([facility]) 15.0 HEMOGLOBIN eCW1 ([facility]) 4.98 RED BLOOD COUNT eCW1 ([facility]) 48.2 HEMATOCRIT eCW1 ([facility]) 16.9 RED CELL DISTRIBUTION WID TH eCW1 ([facility] [place] 31.1 MEAN CORPUSCULAR HGB CONC eCW1 ([facility] [place]) 329 PLATELET COUNT eCW1 ([facility]) 30.1 MEAN CORPUSCULAR HEMOGLOB IN eCW1 ([facility] [place] 6.9 LYMPH % eCW1 ([facility] [place] 8.7 MEAN PLATELET VOLUME eCW1 ([facility]) 86.3 GRAN % eCW1 ([facility] [place] 0.3 BASO % eCW1 ([facility] [place] 5.0 MONO % eCW1 ([facility] [place] 1.0 EOS % eCW1 ([facility] [place] 9.9 GRAN # eCW1 ([facility] [place] 0.8 LYMPH # eCW1 ([facility] [place] 0.1 EOS # eCW1 ([facility] [place] 0.0 BASO # eCW1 ([facility] [place] 0.6 MONO # eCW1 ([facility] [place] ID Date Data Source [id number] 10/28/2019 09:14:00 AM EDT [facility] CHEST, FRONTAL AND LATERAL DATE OF EXAMI [...] rce(s) Supporting Document(s) ID Date Data Source [id number] 10/28/2019 11:37:00 AM EDT [facility] Results [facility] [email or web address] [facility] Name Value Range Interpretation Code Description Data [facility] rce(s) Supporting Document(s) B-TYPE NATRIURETIC PEPTIDE 2878 pg/ml 0-450 *H [facility] ID Date Data Source [id number] 10/28/2019 10:04:00 AM EDT [facility] Results called to [email or web address] o n [facility] Name Value Range Interpretation Code Description Data [facility] rce(s) Supporting Document(s) GLUCOSE 159 mg/dL 74-106 H [facility] BLOOD UREA NITROGEN 24 mg/dL 7-18 H [facility] ital CREATININE 1.0 mg/dL 0.6-1.0 [facility] SODIUM 143 mmol/L 136-145 [facility] POTASSIUM 3.7 mmol/L 3.5-5.1 [facility] CHLORIDE 99 mmol/L 98-107 [facility] CO2 35 mmol/L 21-32 H [facility] CALCIUM 9.5 mg/dL 8.5-10.1 [facility] ANION GAP 9.0 mmol/L 5-12 [facility] GLOMERULAR FILTRATION RATE 52 mL/min [facility] GFR IS CALCULATED IN mL/min/1.73m2 VALENCIA L FUNCTION: >90MILDLY DECREASED: 60-89MILDY TO MODERATELY DECREASED: 45-59 MODERATELY TO SEVERELY DECREASED: 30-44SEVERELY DECREASED: 15-29RENAL FAILURE: <15 AST 18 U/L 15-37 [facility] ALT 20 U/L 12-78 [facility] ALKALINE PHOSPHATASE 76 U/L 46-116 [facility] pital TOTAL BILIRUBIN 1.4 mg/dL 0.2-1.0 H [facility] TOTAL PROTEIN 7.0 g/dl 6.4-8.2 [facility] ALBUMIN 3.6 gm/dL 3.4-5.0 [facility] ID Date Data Source [id number] 10/28/2019 10:09:00 AM EDT [facility] l Name Value Range Interpretation Code Description Data Karen rce(s) Supporting Document(s) DDIMER 0.93 mg/LFEU 0.19-0.8 H [facility] ID Date Data Source [id number] 10/28/2019 09:34:00 AM EDT [facility] l Name Value Range Interpretation Code Description Data Karen rce(s) Supporting Document(s) WHITE BLOOD COUNT 11.5 K/mm3 4.0-10.0 [facility] RED BLOOD COUNT 4.98 M/mm3 4.00-5.50 [facility] HEMOGLOBIN 15.0 gm/dL 12.0-16.0 [facility] HEMATOCRIT 48.2 % 36.0-48.8 [facility] MEAN CELL VOLUME 96.8 fl 80-96 H [facility] MEAN CORPUSCULAR HEMOGLOBIN 30.1 pg 27.0-31.0 [facility] MEAN CORPUSCULAR HGB CONC 31.1 g/dl 32.0-36.0 L [facility] RED CELL DISTRIBUTION WIDTH 16.9 % 10.0-14.5 H [facility] PLATELET COUNT 329 K/mm3 172-450 [facility] MEAN PLATELET VOLUME 8.7 fl 9.0-13.0 L [facility] pital GRAN % 86.3 % 50-80.0 H [facility] IG% 0.5 % 0.0-0.2 H [facility] LYMPH % 6.9 % 25.0-50.0 L [facility] MONO % 5.0 % 2.0-10.0 [facility] EOS % 1.0 % 0-5.0 [facility] BASO % 0.3 % 0.0-2.0 [facility] GRAN # 9.9 K/mm3 2.0-8.00 H [facility] IG# 0.1 K/mm3 0.0-0.2 [facility] LYMPH # 0.8 K/mm3 1.0-5.0 L [facility] MONO # 0.6 K/mm3 0.10-1.20 [facility] EOS # 0.1 K/mm3 0.0-0.5 [facility] BASO # 0.0 K/mm3 0.0-0.2 [facility] ID Date Data Source [id number] 10/14/2019 06:48:00 PM EDT [facility] NAME: OSKAR DUGAN [birth year] MRUN: [id number] LOC: 4E ACCT: [id number] SRV: MED O.V.#: RPT#: [id number] XR CHEST 1VIEW-(PORTABLE) [id number] Date/Time:10/14/19 180 Dx: Shortness of Breath Order [...] By: TENA 0 1121 PACS IMAGE LINK ([facility] USE ONLY) [email or web address] Name Value Range Interpretation Code Description Data Karen rce(s) Supporting Document(s) ID Date Data Source [id number] 10/15/2019 12:50:00 PM EDT [facility] NAME: OSKAR DUGAN 1930 88 MRUN: [id number] LOC: ACCT: [id number] SRV: MED RPT#: [id number] ECHOCARDIOGRAM Order Phy: Anna Fowler MD Date/Time:10/14/19 [...] rce(s) Supporting Document(s) ID Date Data Source [id number] 10/15/2019 05:24:00 AM EDT [facility] Name Value Range Interpretation Code Description Data Karen rce(s) Supporting Document(s) WBC 7.8 k/UL 4.3-11.[address] [facility] nter RBC 4.19 M/UL 4.20-5.[address] [facility] nter HEMOGLOBIN 12.8 G/DL 12.0-16.0 [facility] C enter HEMATOCRIT 40.0 % 38.0-47.0 [facility] enter MCV 95.5 FL 75.0-105.0 [facility] C enter MCH 30.5 PG 26.0-33.[address] [facility] nter MCHC 32.0 G/DL 31.0-36.[address] [facility] nter RED CELL DISTRIBUTION WIDTH 15.8 % 11.6-14.6 H On [facility] Reference range changed effective 09/15 PLATELET COUNT 193 K/UL 150-400 [facility] MEAN PLATELET VOLUME 9.0 FL 8.7-12.3 [facility] NEUTROPHILS AUTOMATED 85.8 % 47.0-76.[address] [facility] LYMPHOCYTE AUTOMATED 4.2 % 12.0-44.0 L [facility] MONOCYTES AUTOMATED 7.7 % 2.0-12.0 [facility] EOSINOPHILS AUTOMATED 1.4 % 0.0-6.0 [facility] BASOPHILS AUTOMATED 0.5 % 0.0-3.0 [facility] ABS.NEUTROPHILS AUTOMATED 6.73 K/UL 1.50-7.50 [facility] ABS. LYMPHOCYTES AUTOMATED 0.33 K/UL 0.80-2.80 L [facility] ABS.MONOCYTES AUTOMATED 0.60 K/UL 0.20-1.00 [facility] ABS. EOSINOPHILS AUTOMATED 0.11 K/UL 0.20-0.40 L [facility] ABS. BASOPHILS AUTOMATED 0.04 K/UL 0.00-0.20 [facility] IMMATURE GRANULOCYTE 0.4 % 0.0-0.6 [facility] ABS IMMATURE GRANULOCYTE 0.03 K/UL 0.00-0.04 [facility] NUCLEATED RBC 0.0 % 0.0-0.0 [facility] ID Date Data Source [id number] 10/15/2019 06:16:00 AM EDT [facility] Name Value Range Interpretation Code Description Data Karen rce(s) Supporting Document(s) SODIUM 140 MMOL/L 136-145 [facility] enter POTASSIUM 3.9 MMOL/L 3.4-5.0 [facility] enter CHLORIDE 101 MMOL/L 98-107 [facility] enter CO2 29 MMOL/L 22-29 [facility] Ce nter ANION GAP 14 MMOL/L 10-[address] [facility] nter GLUCOSE 176 MG/DL 70-[address] [facility] nter CREATININE 0.7 MG/DL 0.5-0.9 [facility] enter BUN 26 MG/DL 6-[address] [facility] nter CALCIUM 9.5 MG/DL 8.8-10.[address] [facility] nter ID Date Data Source [id number] 10/15/2019 06:16:00 AM EDT [facility] Name Value Range Interpretation Code Description Data Karen rce(s) Supporting Document(s) TROPONIN T < 0.01 NG/ML 0.00-0.10 [facility] ID Date Data Source [id number] 10/14/2019 09:05:00 PM EDT [facility] Name Value Range Interpretation Code Description Data Karen rce(s) Supporting Document(s) 2019-nCoV RNA panel by probe and target amplification method [facility] This lab was ordered by [facility] and rep orted by [place]. ID Date Data Source [id number] 10/14/2019 11:22:00 PM EDT [facility] Name Value Range Interpretation Code Description Data Karen rce(s) Supporting Document(s) RAPID COVID-19 VIRAL RNA NOT DETECTED On [facility] Performed by rapid molecular testing [facility] lizing an isothermalnucleic acid amplification technology for the qualitativedetection of SARS-CoV-2 RNA, which is generally detectablein respiratory samples during the acute phase of infection.This test is intended to be performed on respiratoryspecimens collected from individuals who meet the Centersfor Disease Control and Prevention (CDC) clinical and/orepidemiological criteria for COVID-19 testing.A DETECTED results are indicative of the presence cxXARY-GmA-0 RNA; clinical correlation with patient historyand other diagnostic information is necessary to determinepatient infection status. Positive results do not rule outbacterial infection or co-infection with other viruses.Testing facilities within the [place] are required toreport all positive results to the appropriate public healthauthorities.A NOT DETECTED result does not preclude CEML-UjC-[id number] and should not be used as the sole basis forpatient management decisions.This test has been authorized by the FDA under the EmergencyUse Authorization (EAU)Reference Range=NOT DETECTED ID Date Data Source [id number] 10/14/2019 08:14:00 PM EDT [facility] Hx of Present Ill.-Dyspnea Chief Co mplaint: [...] pedal edema, no calf tenderness Neurologic: alert, 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 manager II-XII nml as tested, no motor/sensory deficits, [...] BREATH/WHEEZING Carvedilol (Coreg*) 6.25 mg PO BIDWM [facility] Last Admin: 10/15/19 07:57 Dose: 6.25 mg Documented by: Dextrose (Dextrose 50% Adult Syringe*) 25 gm IVP DIRECTED PRN PRN Reason: BG < 60 IF UNABLE TO TAKE PO Diltiazem HCl (Cardizem*) 30 mg PO Q6H [facility] Last Admin: 10/15/19 10:23 Dose: 30 mg Documented by: Enoxaparin Sodium (Lovenox*) 60 mg SQ Q12H [facility] Last Admin: 10/15/19 07:57 Dose: 60 mg Documented by: Furosemide (Lasix*) 40 mg IVP BID DIURETIC [facility] Last Admin: 10/15/19 08:37 Dose: 40 mg Documented by: Glucagon (Glucagon*) 1 mg IM DIRECTED PRN PRN Reason: BG < 60 (NO PO/IV ACCESS) Glucose (Glutose-15 Oral Gel*) 15 gm PO DIRECTED PRN PRN Reason: BG < 60 IF ABLE TO TAKE PO Insulin Aspart (Novolog*) 0 unit SQ [facility]; Protocol Last Admin: 10/15/19 13:23 Dose: 5 units Documented by: Lisinopril (Zestril*) 10 mg PO DAILY [facility] Last Admin: 10/15/19 08:36 Dose: 10 mg Documented by: Pantoprazole Sodium (Protonix*) 40 mg PO DAILY@0500 [facility] Last Admin: 10/15/19 05:56 Dose: 40 mg Documented by: Discontinued Medications Diltiazem HCl (Cardizem*) 10 mg IVP ONCE ONE Stop: 10/14/19 18:03 Last Admin: 10/14/19 18:24 Dose: 10 mg Documented by: Enoxaparin Sodium (Lovenox*) 58 mg SQ ONCE ONE Stop: 10/14/19 20:17 Last Admin: 10/14/19 20:46 Dose: 58 mg Documented by: Furosemide (Lasix*) 40 mg IVP BID DIURETIC MIHIR 10/14/19 18:01 Printed 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 Photographer CONTINUOUS [place] ONCE XR CHEST 1VIEW-(PORTABLE) [...] Lymph % (Auto) 6.7 L (12.0-44.0) % Wilson % (Auto) 7.3 (2.0-12.0) % Eos % (Auto) 1.4 (0.0-6.0) % Baso % (Auto) 0.6 (0.0-3.0) % Neut # (Auto) 8.15 H (1.50-7.50) K/UL Lymph # (Auto) 0.65 L (0.80-2.80) K/UL Wilson # (Auto) 0.71 (0.20-1.00) K/UL Eos # [...] U/L Troponin T < 0.01 (0.00-0.10) NG/ML Wem-P-Txqehuriojk Pept 2806 H (0-450) PG/ML Total Protein [...] rce(s) Supporting Document(s) ID Date Data Source [id number] 10/15/2019 12:31:00 AM EDT [facility] Physician Instructions: add to er labs Physician Instructions: add to er labs Name Value Range Interpretation Code Description Data Karen rce(s) Supporting Document(s) FT4 1.19 NG/DL 0.9-1.7 [facility] C enter ID Date Data Source [id number] 10/15/2019 12:31:00 AM EDT [facility] Physician Instructions: add to er labs Physician Instructions: add to er labs Name Value Range Interpretation Code Description Data Karen rce(s) Supporting Document(s) TSH 6.920 uIU/ML 0.270-4.200 H [facility] ID Date Data Source [id number] 10/14/2019 11:56:00 PM EDT [facility] Physician Instructions: add to ER labs Name Value Range Interpretation Code Description Data Karen rce(s) Supporting Document(s) PRO-BNP 2806 PG/ML 0-450 H [facility] enter ID Date Data Source [id number] 10/14/2019 07:21:00 PM EDT [facility] Name Value Range Interpretation Code Description Data Karen rce(s) Supporting Document(s) WBC 9.8 k/UL 4.3-11.[address] [facility] nter RBC 4.57 M/UL 4.20-5.[address] [facility] nter HEMOGLOBIN 13.6 G/DL 12.0-16.0 [facility] C enter HEMATOCRIT 44.1 % 38.0-47.0 [facility] C enter MCV 96.5 FL 75.0-105.0 [facility] C enter MCH 29.8 PG 26.0-33.[address] [facility] nter MCHC 30.8 G/DL 31.0-36.[address] [facility] nter RED CELL DISTRIBUTION WIDTH 15.7 % 11.6-14.6 H On [facility] Reference range changed effective 09/15 PLATELET COUNT 215 K/UL 150-400 [facility] MEAN PLATELET VOLUME 9.2 FL 8.7-12.3 [facility] NEUTROPHILS AUTOMATED 83.5 % 47.0-76.0 H [facility] LYMPHOCYTE AUTOMATED 6.7 % 12.0-44.0 L [facility] MONOCYTES AUTOMATED 7.3 % 2.0-12.[address] [facility] EOSINOPHILS AUTOMATED 1.4 % 0.0-6.0 [facility] BASOPHILS AUTOMATED 0.6 % 0.0-3.0 [facility] ABS.NEUTROPHILS AUTOMATED 8.15 K/UL 1.50-7.50 H [facility] ABS. LYMPHOCYTES AUTOMATED 0.65 K/UL 0.80-2.80 L [facility] ABS.MONOCYTES AUTOMATED 0.71 K/UL 0.20-1.00 [facility] ABS. EOSINOPHILS AUTOMATED 0.14 K/UL 0.20-0.40 L [facility] ABS. BASOPHILS AUTOMATED 0.06 K/UL 0.00-0.20 [facility] IMMATURE GRANULOCYTE 0.5 % 0.0-0.6 [facility] ABS IMMATURE GRANULOCYTE 0.05 K/UL 0.00-0.[address] [facility] NUCLEATED RBC 0.0 % 0.0-0.0 [facility] e Center ID Date Data Source [id number] 10/14/2019 07:31:00 PM EDT [facility] Name Value Range Interpretation Code Description Data Karen rce(s) Supporting Document(s) PROTHROMBIN TIME 10.9 SEC 9.7-11.9 [facility] INR 1.[address] [facility] nter *MONITOR PATIENTS BASED ON INR VALU E*INR RESULT TO BE INTERPRETED FOR PATIENTS ON ORAL ANTICOAGULANT THERAPY ONLY.Conventional Anticoagulation: INR 2.0 - 3.0Intensive Anticoagulation : INR 2.5 - 3.5 ID Date Data Source [id number] 10/14/2019 07:31:00 PM EDT [facility] Name Value Range Interpretation Code Description Data Karen rce(s) Supporting Document(s) PTT 24.5 SEC 23.6-32.[address] [facility] nter ID Date Data Source [id number] 10/14/2019 08:00:00 PM EDT [facility] Name Value Range Interpretation Code Description Data Karen rce(s) Supporting Document(s) SODIUM 142 MMOL/L 136-145 [facility] enter POTASSIUM 4.3 MMOL/L 3.4-5.0 [facility] enter CHLORIDE 102 MMOL/L 98-107 [facility] C enter CO2 30 MMOL/L 22-29 H [facility] Ce nter ANION GAP 14 MMOL/L 10-20 [facility] Ce nter GLUCOSE 143 MG/DL 70-99 H [place] [facility] nter CREATININE 0.8 MG/DL 0.5-0.9 [facility] C enter BUN 28 MG/DL 6-20 H [facility] nter CALCIUM 10.3 MG/DL 8.8-10.2 H [facility] C enter TOTAL PROTEIN 6.7 G/DL 6.4-8.3 [facility] e Center ALBUMIN 4.0 G/DL 3.5-5.2 [facility] Ce nter BILIRUBIN,TOTAL 1.0 MG/DL 0.0-1.2 [facility] are Center ALKALINE PHOSPHATASE 80 U/L 35-104 [facility] AST 12 U/L 0-32 [facility] nter ALT 11 U/L 0-33 [facility] Ce nter ID Date Data Source [id number] 10/14/2019 08:00:00 PM EDT [facility] Name Value Range Interpretation Code Description Data Karen rce(s) Supporting Document(s) TROPONIN T < 0.01 NG/ML 0.00-0.10 [facility] e Center ID Date Data Source [id number] 10/14/2019 05:01:00 PM EDT [facility] NAME: OSKAR DUGAN Maldonado 1930 87 MRUN: [id number] LOC: ICU ACCT: [id number] SRV: [facility]#: [id number] ELECTROCARDIOGRAM Order Phy: Yandel Keyes MD Date/Time:10/14/19 180 Dx: Shortness of Breath Exam Date:Oct 14 2019 17:01:06 Ventricular Rate:116 BPM Atrial Rate:138 BPM QRS Duration:70 ms Q-T Interval:310 ms QTC Calculation(Bazett):430 ms R [place]:98 degrees T [place]:268 degrees Diagnosis:Atrial fibrillation with ra pid ventricular [...] rce(s) Supporting Document(s) ID Date Data Source [id number] 09/25/2019 12:00:00 AM EDT [facility] Name Value Range Interpretation Code Description Data Karen rce(s) Supporting Document(s) SARS coronavirus 2 RNA [facility] This lab was ordered by [facility] and reported by [facility]. ID Date Data Source [id number] 09/07/2019 03:23:00 PM EDT MEDENT ([facility] Name Value Range Interpretation Code Description Data Karen rce(s) Supporting Document(s) Hemoglobin A1c/Hemoglobin.total in Blood 8.6 % 4.8-5.7 Above high normal [facility] O[facility] ID Date Data Source [id number] 09/07/2019 03:23:00 PM EDT MEDENT ([facility] Name Value Range Interpretation Code Description Data Karen rce(s) Supporting Document(s) Erythrocytes [#/volume] in Blood by Automated count 4.87 M/UL 4.20-5 .40 [facility] WBC 9.2 k/UL 4.3-11.0 MEDENT ([facility] MCV 97.5 FL 75.0-105.0 MEDENT ([facility] Hemoglobin [Mass/volume] in Blood 14.5 g/dL 12.0-16.0 MEDENT ([facility] Hematocrit 47.5 % 38.0-47.0 Above high normal MEDENT ([facility] MCH 29.8 pg 26.0-33.0 MEDENT ([facility] Red Cell Distribution Width 15.1 % 0.0-16.0 MEDENT ([facility] MCHC 30.5 g/dL 31.0-36.0 Below low normal MEDENT ( [facility] Lymphocyte Automated 10.0 % 12.0-44.0 Below low normal MEDENT ([facility] Neutrophils Automated 81.1 % 47.0-76.0 Above high normal MEDENT ([facility] Platelets [#/volume] in Blood by Automated count 255 K/UL 150-400 MEDENT ([facility] Mean Platelet Volume 9.6 FL 8.7-12.3 MEDE NT ([facility] Eosinophils Automated 1.2 % 0.0-6.0 MED ENT ([facility] Monocytes Automated 6.6 % 2.0-12.0 MEDEN T ([facility] Basophils/100 leukocytes in Blood by Automated count 0.8 % 0.0-3 .0 MEDENT ([facility] Lymphocytes [#/volume] in Blood by Automated count 0.92 K/UL 0.80-2. 80 MEDENT ([facility] Monocytes [#/volume] in Blood by Automated count 0.61 K/UL 0.20-1.00 MEDENT ([facility] Neutrophils [#/volume] in Blood by Automated count 7.44 K/UL 1.50-7. 50 MEDENT ([facility] Eosinophils [#/volume] in Blood by Automated count 0.11 K/UL 0.20-0.40 Below low normal [facility] ([facility] ) Immature Granulocyte 0.3 % 0.0-0.6 MEDE NT ([facility] Basophils [#/volume] in Blood by Automated count 0.07 K/UL 0.00-0.20 [facility] Abs Immature Granulocyte 0.03 K/UL 0.00-0.04 MEDENT ([facility] Nucleated RBC 0.0 % 0.0-0.0 MEDENT ([facility] ID Date Data Source [id number] 09/07/2019 03:23:00 PM EDT MEDENT ([facility] Name Value Range Interpretation Code Description Data Karen rce(s) Supporting Document(s) Sodium [Moles/volume] in Serum or Plasma 139 mmol/L 136-145 [facility] Anion Gap 12 mmol/L 10-20 MEDENT ([facility] Carbon dioxide, total [Moles/volume] in Serum or Plasma 31 mmol/ L 22-29 Above high normal MED[facility] ([facility] Chloride [Moles/volume] in Serum or Plasma 100 mmol/L 98-107 MED[facility] ([facility] Potassium [Moles/volume] in Serum or Plasma 3.9 mmol/L 3.4-5.0 [facility] ([facility] Creatinine 0.8 mg/dL 0.5-0.9 MED[facility] ([facility] Glucose [Mass/volume] in Serum or Plasma 158 mg/dL 70-99 Above high normal MED[facility] ([facility] Urea nitrogen [Mass/volume] in Serum or Plasma 18 mg/dL 6-20 [facility] Albumin [Mass/volume] in Serum or Plasma 4.0 g/dL 3.5-5.2 MED[facility] ([facility] Calcium [Mass/volume] in Serum or Plasma 9.6 mg/dL 8.8-10.2 MEDENT ([facility] Protein [Mass/volume] in Serum or Plasma 6.6 g/dL 6.4-8.3 MEDENT ([facility] Bilirubin.total [Mass/volume] in Serum or Plasma 0.6 mg/dL 0.0-1.2 MEDENT ([facility] Aspartate aminotransferase [Enzymatic activity/volume] in Serum or Plasma 16 U/L 0-32 MEDENT ([facility] Alkaline phosphatase [Enzymatic activity/volume] in Serum or Plasma 78 U/L 35-104 MEDENT ([facility] Alanine aminotransferase [Enzymatic activity/volume] in Seru m or Plasma 17 U/L 0-33 MEDENT ([facility] ID Date Data Source [id number] 09/07/2019 05:56:00 PM EDT [facility] Name Value Range Interpretation Code Description Data Karen rce(s) Supporting Document(s) WBC 9.2 k/UL 4.3-11.[address] [facility] nter RBC 4.87 M/UL 4.20-5.[address] [facility] nter HEMOGLOBIN 14.5 G/DL 12.0-16.0 [facility] enter HEMATOCRIT 47.5 % 38.0-47.0 H [facility] C enter MCV 97.5 FL 75.0-105.0 [facility] C enter MCH 29.8 PG 26.0-33.[address] [facility] nter MCHC 30.5 G/DL 31.0-36.[address] [facility] nter RED CELL DISTRIBUTION WIDTH 15.1 % 0.0-16.0 On [facility] PLATELET COUNT 255 K/UL 150-400 [facility] MEAN PLATELET VOLUME 9.6 FL 8.7-12.3 [facility] NEUTROPHILS AUTOMATED 81.1 % 47.0-76.[address] [facility] LYMPHOCYTE AUTOMATED 10.0 % 12.0-44.0 L [facility] MONOCYTES AUTOMATED 6.6 % 2.0-12.0 [facility] EOSINOPHILS AUTOMATED 1.2 % 0.0-6.0 [facility] BASOPHILS AUTOMATED 0.8 % 0.0-3.0 [facility] ABS.NEUTROPHILS AUTOMATED 7.44 K/UL 1.50-7.50 [facility] ABS. LYMPHOCYTES AUTOMATED 0.92 K/UL 0.80-2.80 [facility] ABS.MONOCYTES AUTOMATED 0.61 K/UL 0.20-1.00 [facility] ABS. EOSINOPHILS AUTOMATED 0.11 K/UL 0.20-0.40 L [facility] ABS. BASOPHILS AUTOMATED 0.07 K/UL 0.00-0.20 [facility] IMMATURE GRANULOCYTE 0.3 % 0.0-0.6 [facility] ABS IMMATURE GRANULOCYTE 0.03 K/UL 0.00-0.04 [facility] NUCLEATED RBC 0.0 % 0.0-0.0 [facility] ID Date Data Source [id number] 09/07/2019 06:12:00 PM EDT [facility] Name Value Range Interpretation Code Description Data Karen rce(s) Supporting Document(s) SODIUM 139 MMOL/L 136-145 [facility] C enter POTASSIUM 3.9 MMOL/L 3.4-5.0 [facility] C enter CHLORIDE 100 MMOL/L 98-107 [facility] enter CO2 31 MMOL/L 22-[address] [facility] nter ANION GAP 12 MMOL/L 10-[address] [facility] nter GLUCOSE 158 MG/DL 70-[address] [facility] nter CREATININE 0.8 MG/DL 0.5-0.9 [facility] enter BUN 18 MG/DL 6-[address] [facility] nter CALCIUM 9.6 MG/DL 8.8-10.[address] [facility] nter TOTAL PROTEIN 6.6 G/DL 6.4-8.3 [facility] ALBUMIN 4.0 G/DL 3.5-5.[address] [facility] nter BILIRUBIN,TOTAL 0.6 MG/DL 0.0-1.2 [facility] ALKALINE PHOSPHATASE 78 U/L 35-104 [facility] AST 16 U/L 0-[address] [facility] nter ALT 17 U/L 0-[address] [facility] nter ID Date Data Source [id number] 09/07/2019 06:12:00 PM EDT [facility] Name Value Range Interpretation Code Description Data Karen rce(s) Supporting Document(s) HEMOGLOBIN A1C 8.6 % 4.8-5.7 H [facility] ID Date Data Source [id number] 08/06/2019 10:58:00 AM EDT [facility] Name Value Range Interpretation Code Description Data Karen rce(s) Supporting Document(s) FERRITIN 72 ng/mL 8-252 [facility] ID Date Data Source [id number] 08/06/2019 10:58:00 AM EDT [facility] Name Value Range Interpretation Code Description Data Karen rce(s) Supporting Document(s) IRON 73 ug/dL 50-170 [facility] TIBC 335 ug/dL 250-450 [facility] % SATURATION 22 % 20-50 [facility] ID Date Data Source [id number] 08/06/2019 10:58:00 AM EDT [facility] l Name Value Range Interpretation Code Description Data Karen rce(s) Supporting Document(s) GLUCOSE 180 mg/dL 74-106 H [facility] BLOOD UREA NITROGEN 29 mg/dL 7-18 [facility] CREATININE 1.0 mg/dL 0.6-1.0 [facility] SODIUM 140 mmol/L 136-145 [facility] POTASSIUM 4.0 mmol/L 3.5-5.1 [facility] CHLORIDE 97 mmol/L 98-107 L [facility] CO2 38 mmol/L 21-32 H [facility] CALCIUM 9.9 mg/dL 8.5-10.1 [facility] ANION GAP 5.0 mmol/L 5-12 [facility] GLOMERULAR FILTRATION RATE 52 mL/min [facility] GFR IS CALCULATED IN mL/min/1.73m2 VALENCIA L FUNCTION: >90MILDLY DECREASED: 60-89MILDY TO MODERATELY DECREASED: 45-59 MODERATELY TO SEVERELY DECREASED: 30-44SEVERELY DECREASED: 15-29RENAL FAILURE: <15 AST 20 U/L 15-37 [facility] ALT 30 U/L 12-78 [facility] ALKALINE PHOSPHATASE 74 U/L 46-116 [facility] pital TOTAL BILIRUBIN 1.1 mg/dL 0.2-1.0 H [facility] TOTAL PROTEIN 7.3 g/dl 6.4-8.2 [facility] ALBUMIN 4.1 gm/dL 3.4-5.0 [facility] ID Date Data Source [id number] 08/06/2019 10:22:00 AM EDT [facility] l Name Value Range Interpretation Code Description Data Karen rce(s) Supporting Document(s) HGBA1C 8.4 % 3.8-5.6 H [facility] Diabetic > or = to 6.5%Prediabetes 5.7-6 .4%Normal <5.7 ID Date Data Source [id number] 08/06/2019 10:22:00 AM EDT [facility] l Name Value Range Interpretation Code Description Data Karen rce(s) Supporting Document(s) ESTIMATED AVERAGE GLUCOSE 194.4 mg/dL [facility] ID Date Data Source [id number] 08/06/2019 10:19:00 AM EDT [facility] l Name Value Range Interpretation Code Description Data Karen rce(s) Supporting Document(s) URINE MICROALBUMIN 13.2 mg/L 1.3-20.0 [facility] URINE CREATININE 27.2 mg/dL [facility] MICROALBUMIN/CREATININE RATIO 48 ug/mg [facility] ID Date Data Source [id number] 08/06/2019 10:08:00 AM T [facility] l Name Value Range Interpretation Code Description Data Karen rce(s) Supporting Document(s) WHITE BLOOD COUNT 10.3 K/mm3 4.0-10.0 H [facility] RED BLOOD COUNT 5.20 M/mm3 4.00-5.50 [facility] HEMOGLOBIN 15.4 gm/dL 12.0-16.0 [facility] HEMATOCRIT 48.5 % 36.0-48.8 [facility] MEAN CELL VOLUME 93.3 fl 80-96 [facility] MEAN CORPUSCULAR HEMOGLOBIN 29.6 pg 27.0-31.0 [facility] MEAN CORPUSCULAR HGB CONC 31.8 g/dl 32.0-36.0 L [facility] RED CELL DISTRIBUTION WIDTH 14.2 % 10.0-14.5 [facility] PLATELET COUNT 263 K/mm3 172-450 [facility] Procedure Social History Code Duration Value Status Description Data Source(s ) Smoking 04/18/2020 12:00:00 AM EST Never Smoker completed Never S moker eCW1 ([facility]) Smoking 04/18/2020 12:00:00 AM EST Never Smoker completed Never S moker eCW1 ([facility] Smoking 04/18/2020 12:00:00 AM EST Never Smoker completed Never S moker eCW1 ([facility]) Smoking 04/18/2020 12:00:00 AM EST Never Smoker completed Never S moker eCW1 ([facility]) Smoking 04/18/2020 12:00:00 AM EST Never Smoker completed Never S moker eCW1 ([facility]) Smoking 04/18/2020 12:00:00 AM EST Never Smoker completed Never S moker eCW1 ([facility]) Smoking 04/18/2020 12:00:00 AM EST Never Smoker completed Never S moker eCW1 ([facility]) Smoking 04/18/2020 12:00:00 AM EST Never Smoker completed Never S moker eCW1 ([facility]) Smoking 04/18/2020 12:00:00 AM EST Never Smoker completed Never S moker eCW1 ([facility] [place]) Smoking 04/17/2020 12:00:00 AM EST Never Smoker completed Never S moker eCW1 ([facility]) Smoking 04/17/2020 12:00:00 AM EST Never Smoker completed Never S moker eCW1 ([facility] [place] [place]) Alcohol intake 04/13/2020 12:00:00 AM EST Never completed [facility] Smoking 04/13/2020 12:00:00 AM EST Former smoker completed Former smoker [facility] Alcohol intake 03/23/2020 12:00:00 AM EST Never completed [facility] Smoking 03/23/2020 12:00:00 AM EST Former smoker completed Former smoker [facility] Smoking 02/15/2020 12:00:00 AM EST Never Smoker completed Never S moker eCW1 ([facility]) Smoking 02/15/2020 12:00:00 AM EST Never Smoker completed Never S moker eCW1 ([facility]) Smoking 02/15/2020 12:00:00 AM EST Never Smoker completed Never S moker eCW1 ([facility] [place]) Smoking 02/15/2020 12:00:00 AM EST Never Smoker completed Never S moker eCW1 ([facility] [place]) Smoking 02/15/2020 12:00:00 AM EST Never Smoker completed Never S moker eCW1 ([facility]) Smoking 02/15/2020 12:00:00 AM EST Never Smoker completed Never S moker eCW1 ([facility] [place]) Smoking 01/24/2020 12:00:00 AM EST Never Smoker completed Never S moker eCW1 ([facility] [place]) Smoking 01/24/2020 12:00:00 AM EST Never Smoker completed Never S moker eCW1 ([facility] [place] [place]) Smoking 01/24/2020 12:00:00 AM EST Never Smoker completed Never S moker eCW1 ([facility]) Smoking 12/21/2019 12:00:00 AM EDT Patient is a former smoker completed Patient is a former smoker MEDENT ([facility]. ) Smoking 11/08/2019 04:04:00 AM EDT Unknown if ever smoked comp leted Unknown if ever smoked [facility] Smoking 11/08/2019 04:04:00 AM EDT Unknown if ever smoked comp leted Unknown if ever smoked [facility] Smoking 10/29/2019 12:00:00 AM EDT Quit completed Quit MEDENT ([facility]) Smoking 10/15/2019 12:31:00 AM EDT Unknown if ever smoked comp leted Unknown if ever smoked [facility] Smoking 10/15/2019 12:31:00 AM EDT Unknown if ever smoked comp leted Unknown if ever smoked [facility] Smoking 10/15/2019 12:31:00 AM EDT Unknown if ever smoked comp leted Unknown if ever smoked [facility] Smoking 10/15/2019 12:31:00 AM EDT Unknown if ever smoked comp leted Unknown if ever smoked [facility] Vital Signs ID Date Data Source UNK Name Value Range Interpretation Code Description Data Source(s) Oxygen saturation in Arterial blood by Pulse oximetry 96 % 96 % eCW1 ([facility] [place] [place]) Respiratory rate 22 /min 22 /min eCW1 ([facility]) Heart rate 100 /min 100 /min eCW1 ([facility]) Body temperature 98.2 [degF] 98.2 [degF] eCW1 ( [facility] [place] Body height 54.0 [in_i] 54.0 [in_i] eCW1 ([facility] [place] [place]) Oxygen saturation in Arterial blood by Pulse oximetry 94 % 94 % [facility] Body mass index (BMI) [Ratio] 25.61 kg/m2 25.61 kg/m2 [facility] Body weight 63.[address] [facility] Body height 157.[address] [facility] Heart rate 91 /min 91 /min [facility] Diastolic blood pressure 60 mm[Hg] 60 mm[Hg] [facility] Systolic blood pressure 104 mm[Hg] 104 mm[Hg] [facility] Oxygen saturation in Arterial blood by Pulse oximetry 91 % 91 % [facility] Body mass index (BMI) [Ratio] 25.61 kg/m2 25.61 kg/m2 [facility] Body weight 63.[address] [facility] Body height 157.[address] [facility] Heart rate 95 /min 95 /min [facility] Diastolic blood pressure 82 mm[Hg] 82 mm[Hg] [facility] Systolic blood pressure 128 mm[Hg] 128 mm[Hg] [facility] Oxygen saturation in Arterial blood by Pulse oximetry 95 % 95 % eCW1 ([facility] [place] [place]) Respiratory rate 20 /min 20 /min eCW1 ([facility]) Heart rate 95 /min 95 /min eCW1 ([facility]) Body temperature 98.0 [degF] 98.0 [degF] eCW1 ( [facility] [place] [place] Body mass index (BMI) [Ratio] 28.83 kg/m2 28.83 kg/m2 eCW1 ([facility] [place] [place]) Body weight 119.6 [lb_av] 119.6 [lb_av] eCW1 ([facility]) Body height 54.0 [in_i] 54.0 [in_i] eCW1 ([facility] [place] Oxygen saturation in Arterial blood by Pulse oximetry 99 % 99 % eCW1 ([facility] [place] [place]) Respiratory rate 18 /min 18 /min eCW1 ([facility]) Heart rate 97 /min 97 /min eCW1 ([facility]) Body temperature 98.2 [degF] 98.2 [degF] eCW1 ( [facility] [place] [place] Body mass index (BMI) [Ratio] 32.93 kg/m2 32.93 kg/m2 eCW1 ([facility] [place] [place]) Body weight 136.6 [lb_av] 136.6 [lb_av] eCW1 ([facility]) Body height 54.0 [in_i] 54.0 [in_i] eCW1 ([facility] [place] [place] Body temperature 35.4 Liset 35.4 Liset MEDENT ( [facility] Body mass index (BMI) [Ratio] 22.9 kg/m2 22.9 k g/m2 MEDENT ([facility].) Oxygen saturation in Arterial blood by Pulse oximetry 88 % 88 % MEDENT ([facility] Body weight 125.00 [lb_av] 125.00 [lb_av] MEDEN T ([facility] Body height 62 [in_i] 62 [in_i] MEDENT ([facility] 5'2" Body temperature 95.8 [degF] 95.8 [degF] MEDENT ([facility] Heart rate 75 /min 75 /min MEDENT ([facility] Diastolic blood pressure 60 mm[Hg] 60 mm[Hg] MEDENT ([facility] Systolic blood pressure 104 mm[Hg] 104 mm[Hg] M EDENT ([facility] Oxygen saturation in Arterial blood by Pulse oximetry 94 % 94 % eCW1 ([facility] [place] [place]) Respiratory rate 18 /min 18 /min eCW1 ([facility]) Heart rate 92 /min 92 /min eCW1 ([facility]) Body temperature 98.0 [degF] 98.0 [degF] eCW1 ( [facility] [place] [place]) Body mass index (BMI) [Ratio] 31.15 kg/m2 31.15 kg/m2 eCW1 ([facility] [place] [place]) Body weight 129.2 [lb_av] 129.2 [lb_av] eCW1 ([facility]) Body height 54.0 [in_i] 54.0 [in_i] eCW1 ([facility] [place] [place]) Body temperature 36.6 Liset 36.6 Liset MEDENT ( [facility] Body mass index (BMI) [Ratio] 22.0 kg/m2 22.0 k g/m2 MEDENT ([facility] Body weight 120.50 [lb_av] 120.50 [lb_av] MEDEN T ([facility] Body height 62 [in_i] 62 [in_i] MEDENT ([facility] 5'2" Body temperature 97.9 [degF] 97.9 [degF] MEDENT ([facility] Heart rate 88 /min 88 /min MEDENT ([facility] Diastolic blood pressure 64 mm[Hg] 64 mm[Hg] [facility] Systolic blood pressure 116 mm[Hg] 116 mm[Hg] M EDENT ([facility] Body mass index (BMI) [Ratio] [...] Respiratory rate 18 /min 18 /min eCW1 ([facility]) Heart rate 90 /min 90 /min eCW1 ([facility]) Body mass index (BMI) [Ratio] 32.40 kg/m2 32.40 kg/m2 eCW1 ([facility]) Body weight 134.4 [lb_av] 134.4 [lb_av] eCW1 ([facility]) Body height 54.0 [in_i] 54.0 [in_i] eCW1 ([facility]) Body temperature 36.6 Liset 36.6 Liset MEDENT ( [facility] Body mass index (BMI) [Ratio] 23.2 kg/m2 23.2 k g/m2 MEDENT ([facility] Body weight 127.00 [lb_av] 127.00 [lb_av] MEDEN T ([facility] Body height 62 [in_i] 62 [in_i] MEDENT ([facility] 5'2" Body temperature 97.9 [degF] 97.9 [degF] MEDENT ([facility] Heart rate 100 /min 100 /min MEDENT ([facility] Diastolic blood pressure 68 mm[Hg] 68 mm[Hg] MEDENT ([facility] Systolic blood pressure 124 mm[Hg] 124 mm[Hg] M EDENT ([facility] Body temperature 37.1 Liset 37.1 Liset MEDENT ( [facility] Body mass index (BMI) [Ratio] 24.1 kg/m2 24.1 k g/m2 MEDENT ([facility] Body weight 132.00 [lb_av] 132.00 [lb_av] MEDEN T ([facility] Body height 62 [in_i] 62 [in_i] MEDENT ([facility] 5'2" Body temperature 98.7 [degF] 98.7 [degF] MEDENT ([facility] Heart rate 108 /min 108 /min MEDENT ([facility] Diastolic blood pressure 62 mm[Hg] 62 mm[Hg] [facility] Systolic blood pressure 118 mm[Hg] 118 mm[Hg] Cony BOTELLO ([facility].) Deprecated Oxygen saturation in Capillary blood by Oximetry 96 % 96 % eCW1 ([facility] [place]) Respiratory rate 18 /min 18 /min eCW1 ([facility]) Heart rate 93 /min 93 /min eCW1 ([facility]) Body temperature 98.1 [degF] 98.1 [degF] eCW1 ( [facility] [place] Body mass index (BMI) [Ratio] 28.40 kg/m2 28.40 kg/m2 eCW1 ([facility] [place]) Body weight Measured 117.8 [lb_av] 117.8 [lb_av ] eCW1 ([facility] [place]) Body height 54.0 [in_us] 54.0 [in_us] eCW1 ([facility]) Respiratory rate 18 /min 18 /min eCW1 ([facility]) Heart rate 102 /min 102 /min eCW1 ([facility]) Body temperature 98.1 [degF] 98.1 [degF] eCW1 ( [facility] [place] [place] Body mass index (BMI) [Ratio] 32.64 kg/m2 32.64 kg/m2 eCW1 ([facility] [place] Body weight Measured 135.4 [lb_av] 135.4 [lb_av ] eCW1 ([facility] [place]) Body height 54.0 [in_us] 54.0 [in_us] eCW1 ([facility]) Deprecated Oxygen saturation in Capillary blood by Oximetry 88 % 88 % eCW1 ([facility] [place]) ID Date Data Source [id number] 04/18/2020 11:13:00 AM EST [facility] l Name Value Range Interpretation Code Description Data Source(s) WEIGHT 54.8 kilos 54.8 kilos [facility] HEIGHT 152.4 centimeters 152.4 centimeters [facility] WEIGHT 55.2 kilos 55.2 kilos [facility] HEIGHT 152.4 centimeters 152.4 centimeters [facility] WEIGHT 54.6 kilos 54.6 [facility] HEIGHT 152.4 centimeters 152.4 centimeters [facility] WEIGHT 57.5 kilos 57.5 [facility] HEIGHT 152.4 centimeters 152.4 centimeters [facility] ID Date Data Source [id number] 11/16/2019 09:45:00 AM EDT [facility] Name Value Range Interpretation Code Description Data Source(s) HEIGHT 154.94 cm 154.94 cm [facility] WEIGHT RECORDED 58.492198 kg 58.968603 kg [facility] HEIGHT 154.94 cm 154.94 cm [facility] WEIGHT RECORDED 58.339284 kg 58.742366 kg [facility] HEIGHT 154.94 cm 154.94 cm [facility] WEIGHT RECORDED 56.064012 kg 56.706957 kg [facility] HEIGHT 154.94 cm 154.94 cm [facility] WEIGHT RECORDED 56.996113 kg 56.079760 kg [facility] ID Date Data Source [id number] 11/29/2019 11:53:00 AM EDT [facility] Name Value Range Interpretation Code Description Data Source(s) HEIGHT 154.94 cm 154.94 cm [facility] WEIGHT RECORDED 63.584861 kg 63.713898 kg [facility] HEIGHT 154.94 cm 154.94 cm [facility] WEIGHT RECORDED 63.715340 kg 63.227379 kg [facility] HEIGHT 154.94 cm 154.94 cm [facility] WEIGHT RECORDED 58.943483 kg 58.525053 kg [facility] ID Date Data Source [id number] 04/18/2020 11:13:00 AM EST [facility] Name Value Range Interpretation Code Description Data Source(s) WEIGHT 55.3 kilos 55.3 [facility] HEIGHT 152.4 centimeters 152.4 centimeters [facility] WEIGHT 55.3 kilos 55.3 [facility] HEIGHT 152.4 centimeters 152.4 centimeters [facility] Patient Treatment Plan of Care Planned Activity Planned Date Details Description Data Source (s) physical therapy ivis - 05/01/2020 12:00:00 AM EST eCW1 [place] [place] eval and tx - 05/01/2020 12:00:00 AM EST eCW1 [place] [place] physical [place] eval and tx - 05/01/2020 12:00:00 AM EST eCW1 [place] [place] torsemide 20 MG Oral Tablet 04/18/2020 12:00:00 AM EST eCW1 [place] [place] empagliflozin 25 MG Oral Tablet [Jardiance] 04/18/2020 12:00:00 AM EST eCW1 [place] [place] torsemide 20 MG Oral Tablet 04/18/2020 12:00:00 AM EST eCW1 [place] [place] empagliflozin 25 MG Oral Tablet [Jardiance] 04/18/2020 12:00:00 AM EST eCW1 ([facility] [place] torsemide 20 MG Oral Tablet 04/18/2020 12:00:00 AM EST eCW1 ([facility] [place] empagliflozin 25 MG Oral Tablet [Jardiance] 04/18/2020 12:00:00 AM EST eCW1 ([facility] [place] torsemide 20 MG Oral Tablet 04/18/2020 12:00:00 AM EST eCW1 ([facility] [place] empagliflozin 25 MG Oral Tablet [Jardiance] 04/18/2020 12:00:00 AM EST eCW1 ([facility] [place] torsemide 20 MG Oral Tablet 04/18/2020 12:00:00 AM EST eCW1 ([facility] [place] empagliflozin 25 MG Oral Tablet [Jardiance] 04/18/2020 12:00:00 AM EST eCW1 ([facility] [place] torsemide 20 MG Oral Tablet 04/18/2020 12:00:00 AM EST eCW1 ([facility] [place] empagliflozin 25 MG Oral Tablet [Jardiance] 04/18/2020 12:00:00 AM EST eCW1 ([facility] [place] Prevalon Heel Protector - 04/17/2020 12:00:00 AM EST eCW1 ([facility] [place] Prevalon Heel Protector - 04/17/2020 12:00:00 AM EST eCW1 ([facility] [place] Prevalon Heel Protector - 04/17/2020 12:00:00 AM EST eCW1 ([facility] [place] Prevalon Heel Protector - 04/17/2020 12:00:00 AM EST eCW1 ([facility] [place] Medical Compression Stockings - 04/17/2020 12:00:00 AM EST eCW1 ([facility] [place] Prevalon Heel Protector - 04/17/2020 12:00:00 AM EST eCW1 ([facility] [place] Medical Compression Stockings - 04/17/2020 12:00:00 AM EST eCW1 ([facility] [place] Prevalon Heel Protector - 04/17/2020 12:00:00 AM EST eCW1 ([facility] [place] Prevalon Heel Protector - 04/17/2020 12:00:00 AM EST eCW1 ([facility] [place] Metolazone 2.5 MG Oral Tablet 04/13/2020 12:00:[address] [facility] Enalapril Maleate 20 MG Oral Tablet 04/13/2020 12:00:[address] [facility] rivaroxaban 20 MG Oral Tablet [Xarelto] 12/18/2019 12:00:[address] [facility] oxygen concentrator 11/10/2019 12:00:00 AM EDT eCW1 ([facility] [place] Portable oxygen concentrator 10/28/2019 12:00:00 AM EDT eCW1 ([facility] [place] Portable oxygen concentrator 10/28/2019 12:00:00 AM EDT eCW1 ([facility] [place] [place] Portable oxygen concentrator 10/28/2019 12:00:00 AM EDT eCW1 ([facility] [place] Blood Pressure Cuff - 08/06/2019 12:00:00 AM EDT eCW1 ([facility] [place] [place] Furosemide 40 MG Oral Tablet 07/23/2019 12:00:00 AM EDT eCW1 ([facility] [place] Enalapril Maleate [address] [facility] Ranitidine [address] [facility] Hydrochlorothiazide [address] [facility] Amlodipine [address] [facility] Atenolol [address] [facility]
--- NOTE | 2020-05-03 21:24 | HPEPDOC ---
[facility] Medical History & Physical Date of Admission May 03, 2020 Date of Service: May 03, 2020 History and Physical CHIEF COMPLAINT: fall HISTORY OF PRESENT ILLNESS: 89-year-old female with past medical history of diastolic HF, atrial fibrillation, HTN, HLD, history of breast cancer, history of colon cancer who presented to [facility] ER with hypotension after a witnessed fall this morning. Patient has little memory of fall and isn't sure if she slipped/tripped or developed syncope. Due to abrasions noted on her forehead, an d R elbow, CT head and C-spine imaging was performed but did not reveal acute fractures. OF note, patient reported several week hx of dark stools, and found to have guaic positive stools on rectal exam per ER report. On arrival patient's BP was 92/50. HR 92. RR 16. SpO2 94$ on RA. T 96.7. WBC 17.4. Hgb 10.2. BUN 54. Trop <0.02. COVID negative. Patient has a hx of afib on AC with xarelto, which was held during a GIB in 12/2019 and subsequently resumed. Xarelto will be held on admission. PAST MEDICAL HISTORY: 1. History of diastolic congestive heart failure 2. HLD 3. HTN 4. History of colon cancer s/p resection 5. History of left breast cancer 6. GERD 7. DM2 8. Osteoarthritis 9. 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 Atrial Fibrillation 11. Hx of GI bleed 2/2 to xarelto PAST SURGICAL HISTORY: 1. Colon resection 2. Cholecystectomy 3. Mastectomy (left) 4. Skin cancer removal SOCIAL HISTORY: 50 pack year smoker, quit a few years ago Patient denies etoh use Patient denies illicit drug use Lives with son Hitesh FAMILY HISTORY: Hx of CVA in mother and father, in their 70s ALLERGIES: Please see below. REVIEW OF SYSTEMS: 10 point ROS completed, and relevant findings noted in HPI HOME MEDICATIONS: Please see below. PHYSICAL EXAMINATION: VITAL SIGNS: please see below General: NAD, comfortable HEENT: PERRLA, EOMI, sclerae clear Neck: supple, normal ROM, no JVD Respiratory: lungs CTAB, no wheeze, no rales, no crackles CVS: RRR, normal S1, S2, no murmurs Abdo: soft, no masses, no hepatosplenomegaly, BS+, no rebound tenderness Extremities: no edema, pulses 2+ MSK: no joint deformities, normal ROM Back: unstageable decubitus ulcer Neuro: no focal neuro deficits, moving all 4 extremities, CN2-12 intact. Strength 5/5 in all 4 extremities. No nystagmus. Psych: calm, cooperative, AAO x 3 LABORATORY DATA: See below. IMAGING: CT head wo contrast (05/03/20): 1. No acute intracranial abnormality. 2. Atrophy and chronic deep white matter ischemic changes. CXR (05/03/20): 1. Mild prominence cardiac silhouette without vascular redistribution, pulmonary edema or definite effusion. 2. Calcified tortuous aorta unchanged. Stable underlying COPD and fibrosis. 3. Chronic stable postsurgical changes with multiple clips axilla and left chest wall. CT c spine wo contrast (05/03/20): 1. No acute abnormality. 2. Chronic findings as discussed above MICROBIOLOGY: Please see below. ASSESSMENT: . . PLAN: Suspected GI bleed - reports dark stools for past several weeks, denies gross hematochezia/melena - Hgb 10.1 on arrival - had EGD in 12/[address] Bean. Found normal esophagus with evidence of recently bleeding erosive gastropathy/shallow erosions. Patient was advised to stay on lifelong PPI. - trend H/H q12h - I discussed treatment options with the patient, patient does not wish to undergo another EGD or colonoscopy at this time. We'll continue to monitor hemo globin and transfuse as needed for hemoglobin <8. - Continue with pantoprazole IV 40 mg once daily. Afib - hold xarelto at this time due to GIB - patient was admitted in 12/2019 for GIB and xarelto was held at that time, since resumed - resume cardizem, coreg. BP hold parameters - HASBLED score 3, major risk for bleeding - will hold xarelto at this time, and defer decision for [facility] AC to pcp. Fall likeley 2/2 orthostasis vs aortic stenosis? - check orthostats - appears fluid depleted on exam, will start on NS at 100 cc/hr - PT/OT eval - carotid US - prior echo in 11/2019 showing severe , will d/w cardiology in am Chronic diastolic CHF - home meds: BB, CCB, ROMANA, torsemide - last echo showed preserved EF 60% - hold paremeters on BP meds COPD, home O2 dependent - 50 pack year smoking hx - on 2L O2 at home HTN - hypotensive on arrival, resolved - resume meds as needed, with hold parameters DMII - ISS, consistent carb diet - FSBS AC and HS - hypoglycemic precautions Unstageable decubitus and heel ulcers - wound care recs placed from recent wound care consult by Dr. Maria - to f/u with Dr. Maria for possible debridement HLD - statin GERD - PPI indefinitely DVT ppx: - TEDs, SCDs - holding chemo prophylaxis due to concern for GIB Dispo: - pending clinical improvement - DNR/DNI status confirmed by patient - MOLST form signed and witnessed. Vital Signs Vital Signs Date Time Temp Pulse Resp B/P (MAP) Pulse Ox O2 Delivery O2 Flow Rate FiO2 05/03/20 21:00 98.2 93 16 102/55 (71) 100 Room Air Laboratory Data Labs 24H Laboratory Tests 2 05/03/20 16:50: Immature Granulocyte % (Auto) 1.0, Neutrophils (%) (Auto) 89.5H, Lymphocytes (%) (Auto) 5.0L, Monocytes (%) (Auto) 4.0, Eosinophils (%) (Auto) 0.1, Basophils (%) (Auto) 0.4, Neutrophils # (Auto) 15.6H, Lymphocytes # (Auto) 0.9L, Monocytes # (Auto) 0.7, Eosinophils # (Auto) 0.0, Basophils # (Auto) 0.1, Nucleated Red Blood Cells % (auto) 0.0, Prothrombin Time 12.9, Prothromb Time International Ratio 0.95, Activated Partial Thromboplast Time 20.0L, Anion Gap 12, Glomerular Filtration Rate 49.9, Calcium Level 9.1, Total Bilirubin 0.6, Direct Bilirubin 0.2, Aspartate Amino Transf (AST/SGOT) 18, Alanine Aminotransferase (ALT/SGPT) 24, Alkaline Phosphatase 97, Total Creatine Kinase 47, Creatine Kinase MB < 1.0, Creatine Kinase MB Relative Index 2.13, Troponin I < 0.02, Total Protein 6.7, Albumin 3.0L, Albumin/Globulin Ratio 0.8L, Thyroid Stimulating Hormone (TSH) 4.830H, Free Thyroxine 1.07, Coronavirus (COVID-19)(PCR) NEGATIVE, Influenza Type A (RT-PCR) NEGATIVE, Influenza Type B (RT-PCR) NEGATIVE, Respiratory Syncytial Virus (PCR) NEGATIVE CBC/BMP Laboratory Tests 05/03/20 16:50 Home Medications Scheduled Aspirin (Aspirin EC) 81 Mg Tablet.dr, 81 MG PO DAILY Carvedilol (Carvedilol) 12.5 Mg Tablet, 12.5 MG PO BID Diltiazem HCl (Diltiazem 24Hr ER) 180 Mg Cap.er.24h, 180 MG PO DAILY Empagliflozin (Jardiance) 25 Mg Tablet, 25 MG PO DAILY Enalapril Maleate (Enalapril Maleate) 5 Mg Tablet, 5 MG PO DAILY Ferrous Gluconate (Ferrous Gluconate) 324 Mg Tablet, 324 MG PO DAILY Glipizide (Glipizide ER) 5 Mg Tab.er.24, 5 MG PO BID QAM, 1500 Metolazone (Metolazone) 2.5 Mg Tablet, 2.5 MG PO Q2D Omeprazole (Omeprazole) 20 Mg Capsule.dr, 20 MG PO DAILY Pravastatin Sodium (Pravastatin Sodium) 40 Mg Tablet, 40 MG PO QPM Rivaroxaban (Xarelto) 15 Mg Tablet, 15 MG PO QPM Torsemide (Torsemide) 20 Mg Tablet, 20 MG PO DAILY Scheduled PRN Ipratropium/Albuterol Sulfate (Combivent Respimat 20-100 Mcg) 4 Gm Mist.inhal, 1 PUFF INH QID PRN for SOB/WHEEZING Torsemide (Torsemide) 20 Mg Tablet, 10 MG PO DAILY PRN for FLUID RETENTION TAKE NEEDED AFTER FIRST DOSE IF NO CHANGE IN EDEMA Allergies Coded Allergies: metformin (Verified Allergy, Mild, 04/23/20) KATELYN MADISON MD May 03, 2020 21:24
[2020-05-03] MEDS ORDERED: TORSEMIDE 20 MG TAB PO PRN (21:30)
[2020-05-03] MEDS ORDERED: COMBIVENT RESPIMAT 100-20MCG INHALER 4GM INH PRN (21:30)
[2020-05-03 21:42] VITALS: BP 106/59
[2020-05-03] MEDS: DOCUSATE SODIUM 100MG CAPSULE PO SCH (22:05)
[2020-05-03] MEDS: NS 1,000 ML IV SCH (23:36)
[2020-05-04] VITALS (16 sets, daily range): BP systolic 75–116; BP diastolic 50–84
[2020-05-04 06:07] LABS: BASO % 0.3 % (0.0-1.0); EOS # 0.1 10^3/uL (0.0-0.5); EOS % 0.5 % (0.0-3.0); HEMATOCRIT 30.4 % (36.0-47.0); LYMPH # 0.7 10^3/uL (1.5-5.0); LYMPH % 5.3 % (24.0-44.0); MEAN CORPUSCULAR HEMOGLOBIN 27.3 pg (27.0-33.0); MEAN CORPUSCULAR HGB CONC 29.6 g/dl (32.0-36.5); MEAN CORPUSCULAR VOLUME 92.1 fl (80.0-96.0); MONO # 0.8 10^3/uL (0.0-0.8); MONO % 5.8 % (2.0-8.0); NEUTROPHILS # 11.3 10^3/uL (1.5-8.5); NEUTROPHILS % 87.6 % (36.0-66.0); PLATELET COUNT, AUTOMATED 459 10^3/uL (150-450); WHITE BLOOD COUNT 12.9 10^3/uL (4.0-10.0)
[2020-05-04 07:03] LABS: ALBUMIN 2.7 GM/DL (3.2-5.2); BILIRUBIN,TOTAL 0.3 MG/DL (0.2-1.0); CALCIUM LEVEL 8.7 MG/DL (8.8-10.2); CREATININE FOR GFR 1.05 MG/DL (0.55-1.30); GLOMERULAR FILTRATION RATE 52.7 (>32); MAGNESIUM LEVEL 2.2 MG/DL (1.8-2.4); POTASSIUM SERUM 2.4 MEQ/L (3.5-5.1); TOTAL PROTEIN 6.6 GM/DL (6.4-8.2)
[2020-05-04] MEDS: PANTOPRAZOLE 40MG VIAL (C9113 PER 1) IV SCH ×2 (08:09→20:38)
[2020-05-04] MEDS: DOCUSATE SODIUM 100MG CAPSULE PO SCH ×2 (08:10→20:38)
[2020-05-04] MEDS: POTASSIUM CHLORIDE 10 MEQ SR TABLET PO SCH ×2 (08:10→09:13)
[2020-05-04] MEDS: SUCRALFATE SUSP 1GM/10ML UD PO SCH ×4 (08:10→20:38)
[2020-05-04] MEDS: ASPIRIN 81 MG ENTERIC TAB PO SCH (08:10)
[2020-05-04] MEDS: FERROUS GLUCONATE 324 MG TAB PO SCH (08:10)
[2020-05-04] MEDS: KCL 10MEQ/100ML SWI (KRUN) 10 MEQ in IV 1 EA IV SCH ×4 (08:11→11:13)
[2020-05-04] MEDS: diltiaZEM **CD** 180 MG CAP PO SCH (08:16)
[2020-05-04] MEDS ORDERED: metOLazone 2.5 MG TAB PO SCH (09:00)
[2020-05-04] MEDS ORDERED: PANTOPRAZOLE 40MG VIAL (C9113 PER 1) IV SCH (09:00)
[2020-05-04] MEDS ORDERED: CARVedilol 12.5 MG TAB PO SCH (09:00)
[2020-05-04] MEDS ORDERED: TORSEMIDE 20 MG TAB PO SCH (09:00)
[2020-05-04] MEDS ORDERED: ENALAPRIL MALEATE 5 MG TAB PO SCH (09:00)
[2020-05-04] MEDS: NS 1,000 ML IV SCH (10:09)
--- NOTE | 2020-05-04 11:57 | IPNPDOC ---
Date Seen The patient was seen on 05/04/20. Progress Note ADDENDUM TO PROGRESS NOTE: ASSESSMENT: COCCYGEAL ULCER, HEEL ULCERS, GI BLEED DUE TO XARELTO PLAN: CONSULT DR RODRIGUEZ FOR WOUND CARE, REPOSITION AND TURN Q2HRS. VS, I&O, 24H, Fishbone Vital Signs/I&O Vital Signs Date Time Temp Pulse Resp B/P (MAP) Pulse Ox O2 Delivery O2 Flow Rate FiO2 05/04/20 08:14 96.8 95 16 100/55 (70) 96 Room Air I&O- Last 24 Hours up to 6 AM 05/04/20 06:00 Intake Total 1360 ml Output Total 0 ml Balance 1360 ml Laboratory Data 24H LABS Laboratory Tests 2 05/03/20 16:50: Immature Granulocyte % (Auto) 1.0, Neutrophils (%) (Auto) 89.5H, Lymphocytes (%) (Auto) 5.0L, Monocytes (%) (Auto) 4.0, Eosinophils (%) (Auto) 0.1, Basophils (%) (Auto) 0.4, Neutrophils # (Auto) 15.6H, Lymphocytes # (Auto) 0.9L, Monocytes # (Auto) 0.7, Eosinophils # (Auto) 0.0, Basophils # (Auto) 0.1, Nucleated Red Blood Cells % (auto) 0.0, Prothrombin Time 12.9, Prothromb Time International Ratio 0.95, Activated Partial Thromboplast Time 20.0L, Anion Gap 12, Glomerular Filtration Rate 49.9, Calcium Level 9.1, Total Bilirubin 0.6, Direct Bilirubin 0.2, Aspartate Amino Transf (AST/SGOT) 18, Alanine Aminotransferase (ALT/SGPT) 24, Alkaline Phosphatase 97, Total Creatine Kinase 47, Creatine Kinase MB < 1.0, Creatine Kinase MB Relative Index 2.13, Troponin I < 0.02, Total Protein 6.7, Albumin 3.0L, Albumin/Globulin Ratio 0.8L, Thyroid Stimulating Hormone (TSH) 4.830H, Free Thyroxine 1.07, Coronavirus (COVID-19)(PCR) NEGATIVE, Influenza Type A (RT-PCR) NEGATIVE, Influenza Type B (RT-PCR) NEGATIVE, Respiratory Syncytial Virus (PCR) NEGATIVE 05/04/20 05:46: Immature Granulocyte % (Auto) 0.5, Neutrophils (%) (Auto) 87.6H, Lymphocytes (%) (Auto) 5.3L, Monocytes (%) (Auto) 5.8, Eosinophils (%) (Auto) 0.5, Basophils (%) (Auto) 0.3, Neutrophils # (Auto) 11.3H, Lymphocytes # (Auto) 0.7L, Monocytes # (Auto) 0.8, Eosinophils # (Auto) 0.1, Basophils # (Auto) 0.0, Nucleated Red Blood Cells % (auto) 0.0, Anion Gap 11, Glomerular Filtration Rate 52.7, Calcium Level 8.7L, Total Bilirubin 0.3, Aspartate Amino Transf (AST/SGOT) 6L, Alanine Aminotransferase (ALT/SGPT) 17, Alkaline Phosphatase 87, Total Protein 6.6, Albumin 2.7L, Albumin/Globulin Ratio 0.7L, Magnesium Level 2.2 CBC/BMP Laboratory Tests 05/03/20 16:50 05/04/20 05:46 RONNELL MORTENSEN MD May 04, 2020 11:57
--- NOTE | 2020-05-04 12:28 | IPN ---
PROGRESS NOTE DATE: 05/04/2020 SUBJECTIVE: Patient is seen and examined at the bedside. Chart has been reviewed. She denies any chest pain, pressure or tightness, complaints of fatigue and generalized weakness. Hemoglobin decreased from 10 to 9. Patient refused endoscopy to further evaluate her GI bleed. She is currently maintained on aspirin and agreeable to receiving Protonix and RBC transfusion. Patient denies any nausea, vomiting, abdominal pain. PHYSICAL EXAMINATION ON DISCHARGE: Temperature 96.8, pulse 95, respiratory 16, blood pressure 100/55, 96% on room air. General: Awake, alert, oriented to self in no respiratory distress, no use of accessory muscles. HEENT: No pallor or icterus. Dry mucous membranes. Neck: No JVD, thyromegaly or cervical lymphadenopathy. Lungs: Diminished, but clear to auscultation, no wheezes, rhonchi or rales. Heart: S1 and S2, sinus rhythm, no murmurs, rubs or gallops. Abdomen: Soft, nontender, nondistended, positive bowel sounds. Extremities: No pitting edema. LABORATORY DATA: White count 12.9, hemoglobin 9, hematocrit 30, platelet count 459. Sodium 139, potassium 2.4, chloride 93, bicarb 35, BUN 53, creatinine 1.05, glucose 271. ASSESSMENT AND PLAN: This is an 89-year-old female admitted on 05/03/20 with history of diastolic heart failure, hypertension, hyperlipidemia, colon cancer status post resection, left breast cancer status post left mastectomy, reflux, type-2 diabetes, osteoarthritis, COPD on 2 liters home oxygen dependent, chronic hypoxic respiratory failure, chronic atrial fibrillation, history of GI bleed secondary to Xarelto that presented to the Emergency Room with complaints of fall and syncope. Patient was noted to have several week history of dark stools and guaiac positive on rectal exam in the ER, COVID negative, admitted for GI bleed. Xarelto held from 05/03/20. Current issues: 1. Suspected GI bleed with acute blood loss anemia: Patient is symptomatic with syncopal episode and complaints of generalized weakness. She is refusing EGD, colonoscopy and would prefer to have supportive care with RBC transfusion. Patient was found to have a normal esophagus with erosive gastropathy and shallow erosions to be on lifelong PPI. She is currently maintained on Protonix and Carafate and given 2 units of RBC transfusion due to complaints of generalized weakness and syncope. 2. Congestive heart failure: Patient currently is orthostatic. Her torsemide and blood pressure medications have been held temporarily. She is currently on I.V. fluids. 3. Hypokalemia: Patient is supplemented with potassium orally and I.V. with recheck potassium later today; most likely secondary to her diuretics. 4. Chronic atrial fibrillation: Currently rate controlled. She is maintained on her diltiazem for rate control. We have held off on her anticoagulation, but maintained on aspirin due to recent drop in hemoglobin and syncopal episode. 5. Orthostatic hypotension secondary to hypovolemia from GI bleed as well as diuretic use: Therefore her diuretics have been held temporarily until she normalizes with her blood pressure.
[2020-05-04 14:19] LABS: HEMATOCRIT 31.9 % (36.0-47.0); HEMOGLOBIN 9.4 g/dl (12.0-15.5)
[2020-05-04] MEDS ORDERED: AMIODARONE HCL 150 MG in IV 1 EA IV STA (16:45)
--- NOTE | 2020-05-04 17:38 | CR ---
ADVANCED WOUND CARE CONSULTATION Consult is via Telemedicine. DATE: 05/04/2020 REQUESTING PHYSICIAN: Dr. Ronal Aguilar REASON FOR CONSULTATION: Wound care recommendations for pressure injuries involving the sacral/ coccyx area and right and left heels. HISTORY OF PRESENT ILLNESS: An 89-year-old frail female admitted for bleed requiring transfusions, still with labile blood pressure, found to have unstageable pressure injuries involving the sacral /coccyx area and right and left heels. The patient has a Do Not Resuscitate/Do Not Intubate status. The patient received 2 units of blood and last hemoglobin was 9.5. On the sacral coccyx area, there is a 5.0 by 6.0 cm. unstageable pressure injury. There is dry, fixed black eschar present which is not fluctuant. There is no drainage noted. The periwound shows mild inflammatory changes. The right heel shows a 3.0 cm by 4.0 cm unstageable pressure injury with a dry fixed black eschar and the left heel shows a 2.0 cm by 2.5 cm dry fixed black eschar, again, an unstageable pressure injury. TREATMENT: At this time the patient has multiple medical issues, is frail and elderly, previously living at home. Prognosis is guarded. Heel ulcers can be treated by painting them with Betadine, covering them with foam dressing and using heel flow boots for offloading purposes for right and left heels. The anterior ankle portion of the heel flow boots should be padded with an ABD pad to prevent any trauma from the Velcro strap of the boot. Dressing changes q. 2 days. If the wounds show any fluctuation or necrotic deterioration, erythema involving the periwound or drainage of purulent material, the eschar should be surgically removed and replaced with an alginate foam dressing combination. In terms of the sacral wound, bedside debridement with local anesthesia is recommended and once this is accomplished, treatment can be alginate with foam dressing covering. The patient's position in bed should be changed every q. 2 hours for offloading purposes. I am told that the patient is eating satisfactorily. Added nutritional suggestions would include Ensure and/or Booker to supplement her diet. This patient can be reevaluated if there is any significant change in the wound appearance. Until the wound can be dbrided in terms of the sacral area, Betadine to the eschar and a cover foam dressing can be utilized. As with all dressing changes, skin prep should be used for the periwound to insure no local trauma from the actual dressing itself. [facility]
[2020-05-04] MEDS: DIGOXIN INJ 0.5 MG/2 ML AMP (J1160) IV SCH ×2 (17:41→23:45)
[2020-05-04] MEDS ORDERED: PRAVASTATIN 20 MG TAB PO SCH (21:00)
--- NOTE | 2020-05-04 22:20 | CR ---
CONSULTATION DATE: 05/04/2020 REASON FOR CONSULTATION: Decubitus ulcer. HISTORY OF PRESENT ILLNESS: The patient is an 89-year-old female with a history of atrial fibrillation and breast cancer and colon cancer who came in the hospital after having a fall. She was noted to have dark stools when she entered the hospital and she was guaiac positive. She was given a couple units of blood and has remained stable since. During her stay she was found to have a decubitus ulcer. Dr. Maria was consulted to evaluate and recommended bedside debridement. The patient is slightly confused. She is unable to give me a good history. I did give a call to her daughter who did not have any known history of ulcerations prior to being in the hospital. She used to live with her up until about 5 or 6 months ago and had no problems at that time, so this ulcer has grown sometime within the last 5-6 months. PAST MEDICAL HISTORY: The patient's past medical history is significant for: 1. Diastolic congestive heart failure. 2. Hyperlipidemia. 3. Hypertension. 4. History of colon cancer. 5. History of left breast cancer. 6. Diabetes. 7. Osteoarthritis. 8. Chronic obstructive pulmonary disease. 9. Atrial fibrillation. 10. History of GI bleeding. PAST SURGICAL HISTORY: The patient's past surgical history is significant for: 1. Colon resection. 2. Cholecystectomy. 3. Mastectomy. 4. Skin cancer excision. FAMILY HISTORY: Noncontributory. SOCIAL HISTORY: No drug, alcohol or tobacco abuse. Currently lives home with a son. ALLERGIES: Metformin. HOME MEDICATIONS: Please see Med Rec. REVIEW OF SYSTEMS: Pertinent positives and negatives as stated in the HPI, however again, review of systems was difficult to obtain due to patient being slightly confused. PHYSICAL EXAMINATION: GENERAL APPEARANCE: The patient is awake, alert and oriented to place. VITAL SIGNS: Temperature 98.9, pulse 111, respirations 16, blood pressure 102/59, pulse oximetry 95% on room air. HEENT: Pupils are equal, round and reactive to light and accommodation. HEART: S1, S2, regular rate and rhythm. LUNGS: Clear to auscultation bilaterally. ABDOMEN: Soft, nontender, nondistended. SKIN: Over the sacrum there is an eschar approximately 3 by 5 cm in size, unable to determine the depth of the wound at this time. LABORATORY DATA: White count 12.9, hemoglobin 9.4, platelet count 459, potassium 4.1, creatinine 1.05. ASSESSMENT AND PLAN: The patient is an 89-year-old female currently with an unstageable decubitus ulcer. Recommendation is to proceed with bedside debridement. The risks and benefits of the procedure are not limited to but including bleeding, infection, damage to surrounding structures, need for further procedures were discussed in detail with the patient. She gave me verbal consent. I also obtained phone consent from the daughter. All of the questions were answered and procedure was then completed at the bedside.
[2020-05-05] VITALS: BP 120/69
[2020-05-05 04:00] VITALS: BP 119/74
[2020-05-05] MEDS: DIGOXIN INJ 0.5 MG/2 ML AMP (J1160) IV SCH (04:45)
[2020-05-05 05:44] LABS: BASO % 0.3 % (0.0-1.0); EOS # 0.1 10^3/uL (0.0-0.5); EOS % 1.2 % (0.0-3.0); HEMATOCRIT 35.4 % (36.0-47.0); HEMOGLOBIN 10.7 g/dl (12.0-15.5); LYMPH # 0.8 10^3/uL (1.5-5.0); LYMPH % 6.7 % (24.0-44.0); MEAN CORPUSCULAR HEMOGLOBIN 28.1 pg (27.0-33.0); MEAN CORPUSCULAR HGB CONC 30.2 g/dl (32.0-36.5); MEAN CORPUSCULAR VOLUME 92.9 fl (80.0-96.0); MONO # 0.7 10^3/uL (0.0-0.8); MONO % 6.1 % (2.0-8.0); NEUTROPHILS # 9.8 10^3/uL (1.5-8.5); NEUTROPHILS % 84.9 % (36.0-66.0); PLATELET COUNT, AUTOMATED 404 10^3/uL (150-450); RED BLOOD COUNT 3.81 10^6/uL (4.00-5.40); WHITE BLOOD COUNT 11.6 10^3/uL (4.0-10.0)
[2020-05-05 06:20] LABS: ALBUMIN 2.5 GM/DL (3.2-5.2); ALT/SGPT 20 U/L (12-78); BILIRUBIN,TOTAL 0.8 MG/DL (0.2-1.0); BLOOD UREA NITROGEN 36 MG/DL (7-18); CALCIUM LEVEL 8.9 MG/DL (8.8-10.2); CARBON DIOXIDE LEVEL 35 MEQ/L (21-32); CHLORIDE LEVEL 96 MEQ/L (98-107); CREATININE FOR GFR 0.86 MG/DL (0.55-1.30); DIGOXIN LEVEL 3.3 NG/ML (0.5-2.0); GLOMERULAR FILTRATION RATE > 60.0 (>32); GLUCOSE, FASTING 269 MG/DL (70-100); MAGNESIUM LEVEL 2.2 MG/DL (1.8-2.4); NT-PRO BNP 2456 PG/ML (<450); POTASSIUM SERUM 4.9 MEQ/L (3.5-5.1); SODIUM LEVEL 134 MEQ/L (136-145)
--- NOTE | 2020-05-05 07:02 | RO ---
OPERATIVE NOTE DATE OF OPERATION: 05/04/2020 PREOPERATIVE DIAGNOSIS: Sacral decubitus ulcer, un-stageable. POSTOPERATIVE DIAGNOSIS: Decubitus ulcer, stage III measuring 4 x 6 cm. PROCEDURE: Sharp excisional debridement of skin, subcutaneous tissue, muscle of the sacrum measuring 4 x 6 cm in size. SURGEON: Erick West DO SURVEY INTERVIEWER: None. ANESTHESIA: None. ESTIMATED BLOOD LOSS: 2 ml COMPLICATIONS: None. INDICATIONS FOR PROCEDURE: The patient is an 89-year-old who presents with decubitus ulcer. Recommendation is to proceed with bedside sharp excisional debridement. Risks and benefits of procedure, not limited to, but included bleeding, infection, damage to surrounding structures and need for further surgery were discussed in detail with the patient. Informed consent was obtained from the patient, as well as the daughter over the phone and procedure was planned. DESCRIPTION OF PROCEDURE: The patient was turned to right lateral decubitus position on the bedside with the nurse present. The sacrum was examined. Using a 15 blade scalpel, the eschar over top of the wound was carefully dbrided using sharp excisional debridement. The skin, subcutaneous tissue and some of the muscle were all dbrided down to the presacral fascia. The presacral fascia was not compromised and either was bone. Once the wound was completely debridement, the curette was also used to debride some of the edges. I did not remove all of the necrotic tissue due to the patient's discomfort; she was having some pain and tenderness around edges, but I was able to remove the entire eschar and plan is to continue on with dressing changes for now and consider possible repeat debridement in the future, possibly as an outpatient and follow up with wound care clinic.
[2020-05-05 08:00] VITALS: BP 132/65
[2020-05-05] MEDS ORDERED: AMIODARONE HCL 150 MG in IV 1 EA IV STA (08:02)
--- NOTE | 2020-05-05 08:09 | ECGEPIP ---
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
--- NOTE | 2020-05-05 08:44 | REP ---
INDICATION: sob COMPARISON: 05/03/2020 TECHNIQUE: Portable AP view of the chest FINDINGS: The mediastinum and cardiac silhouette are stable and within normal limits for portable technique. The lung hadley demonstrate stable chronic changes without acute consolidation, effusion, or pneumothorax. Skeletal structures demonstrate age-related osteopenia and degenerative changes without obvious acute injury. Surgical clips overlie the left hemithorax. IMPRESSION: No acute cardiopulmonary process appreciated. <Electronically signed by David Moody > 05/05/20 [id number]
[2020-05-05 08:46] VITALS: BP 132/65
[2020-05-05] MEDS: diltiaZEM **CD** 180 MG CAP PO SCH (08:46)
[2020-05-05] MEDS: ASPIRIN 81 MG ENTERIC TAB PO SCH (08:46)
[2020-05-05] MEDS: SUCRALFATE SUSP 1GM/10ML UD PO SCH ×2 (08:46→13:31)
[2020-05-05] MEDS: FERROUS GLUCONATE 324 MG TAB PO SCH (08:47)
[2020-05-05] MEDS: PANTOPRAZOLE 40MG VIAL (C9113 PER 1) IV SCH (08:47)
[2020-05-05] MEDS: DOCUSATE SODIUM 100MG CAPSULE PO SCH (08:47)
[2020-05-05] MEDS ORDERED: CARA1TAB6 PO (09:55)
[2020-05-05] MEDS ORDERED: PROT1TAB2 PO (09:55)
[2020-05-05 10:00] VITALS: BP 121/71
--- NOTE | 2020-05-05 15:46 | IPN ---
PROGRESS NOTE DATE: 05/05/20 SUBJECTIVE: Patient had no issues overnight, had the coccyx decubitus debrided by surgery yesterday. She does not complain of any pain today. The patient denies any recurrent bright red blood per rectum, melena or black tarry stool. She is currently on Protonix and Carafate, resumed on her low dose aspirin. Hemoglobin and hematocrit remain the same, hemoglobin at 10.7 and hematocrit of 35. She has been transfused 2 units of blood. PHYSICAL EXAMINATION ON DISCHARGE: Vital signs: Temperature 98, pulse 85, respiratory rate 17, blood pressure 132/65, 95% on room air. General: Appears her stated age, disheveled. Dry mucous membranes. Lungs: Diminished, but clear to auscultation, no wheezes, rhonchi or rales. Heart: S1 and S2 sinus rhythm, no murmurs, rubs or gallops. Abdomen: Soft, nontender, nondistended, positive bowel sounds. Skin: Stage 3, 4 x 6 cm coccyx sacral decubiti. Extremities: Bilateral heel ulcers with black eschar on the left heel and right heel 3 x 4 cm eschar. LABORATORY DATA: White count 11.6, hemoglobin 10, hematocrit 35, platelet count 404. Sodium 134, potassium 4.9, chloride 96, bicarb 35, BUN 36, creatinine 0.86, glucose 269. 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 Xarelto held from 05/03/20, but continued on aspirin. IMPRESSIONS/PLANS: 1. GI bleed with acute blood loss anemia: On PPI and Carafate, refused EGD, colonoscopy. H&H remain stable after 2 units RBC transfusion and currently asymptomatic. 2. Symptomatic anemia with fall and syncope at home secondary to GI bleed: Currently stable. 3. Congestive heart failure: Patient was originally orthostatic on admission so her diuretics and blood pressure medications have been held temporarily. 4. Chronic atrial fibrillation: Rate controlled on diltiazem. She is currently just on aspirin due to GI bleed and symptomatic anemia with syncope at home. 5. Orthostatic hypotension secondary to hypovolemia as well as GI bleed and diuretic use: Stable. 6. Sacral coccygeal stage 3 ulcer and bilateral heel ulcers: Managed by general surgery, status post debridement on 05/04/20 as well as adaptive physical education specialist Dr. Maria. Patient will need outpatient referral. 7. Disposition: PT/OT evaluation, discharge home once cleared by physical therapy either Friday or Friday, home care referral as outpatient. HUBER
--- NOTE | 2020-05-05 20:22 | ECGEPIP ---
[facility] Test Date: 2020-05-05 Pat Name: OSKAR BABCOCK Department: Room: [place] [address] Gender: Female Special Delivery Carrier: cody : 1930 Requested By: RONNELL Carlos Order Number: [id number] Reading MD: Sushant Michael Measurements Intervals [place] Rate: 83 P: [place]: QRS: 85 QRSD: 80 T: 255 QT: 352 QTc: 413 Interpretive Statements Atrial fibrillation with controlled ventricular response Anteroseptal infarct , age undetermined Nonspecific ST-T wave abnormalities No significant change when compared to prior tracing of 05/03/2020 Electronically Signed on 05-05-2020 20:22:20 EST by Sushant Michael
== END 2020-05-05 14:20 | disposition home health service (06) | DRG 981 ==
LOC: EDBD 16:12 → M ED 16:12 → M ED INP 19:01 → ENRESERV 20:07 → M PCU 21:42
PROVIDERS: ADMIT Family Medicine; ATTEND General Practice
PROC: 0KBF0ZZ Excision of Right Trunk Muscle, Open Approach (ICD-10-PCS; principal; 2020-05-04)
PROC: 30233N1 Transfusion of Nonautologous Red Blood Cells into Peripheral Vein, Percutaneous Approach (ICD-10-PCS; 2020-05-04)
DX: D68.32 Hemorrhagic disorder due to extrinsic circulating anticoagulants (principal); L89.153 Pressure ulcer of sacral region, stage 3; I50.32 Chronic diastolic (congestive) heart failure; I48.20 Chronic atrial fibrillation, unspecified; J96.11 Chronic respiratory failure with hypoxia; K92.2 Gastrointestinal hemorrhage, unspecified; D62 Acute posthemorrhagic anemia; J44.9 Chronic obstructive pulmonary disease, unspecified; I11.0 Hypertensive heart disease with heart failure; E11.9 Type 2 diabetes mellitus without complications; E78.5 Hyperlipidemia, unspecified; K21.9 Gastro-esophageal reflux disease without esophagitis; L89.610 Pressure ulcer of right heel, unstageable; L89.620 Pressure ulcer of left heel, unstageable; Z66 Do not resuscitate; E87.6 Hypokalemia; I95.1 Orthostatic hypotension; Z85.3 Personal history of malignant neoplasm of breast; Z99.81 Dependence on supplemental oxygen; Z85.038 Personal history of other malignant neoplasm of large intestine; Z90.49 Acquired absence of other specified parts of digestive tract; Z90.12 Acquired absence of left breast and nipple; Z85.828 Personal history of other malignant neoplasm of skin; Z87.891 Personal history of nicotine dependence; Z20.822 Contact with and (suspected) exposure to COVID-19; Z79.82 Long term (current) use of aspirin; Z79.01 Long term (current) use of anticoagulants; Z79.899 Other long term (current) drug therapy; Z79.84 Long term (current) use of oral hypoglycemic drugs; Z88.8 Allergy status to other drugs, medicaments and biological substances

== ENCOUNTER → 2020-06-09 | Outpatient (REF) | payer MEDICARE, MEDICAID ==
[~2020-06-09] MED LIST changes: +CARA1TAB6 PO; +CARV12.5 PO; +FERR324T21 PO; -FERR325T16 PO; +PROT1TAB2 PO
== END ==
LOC: M LAB REF 15:42
PROVIDERS: ATTEND Surgery
DX: L89.154 Pressure ulcer of sacral region, stage 4 (principal)